=== PATIENT | female | born 1995 | race Caucasian/White ===

== ENCOUNTER 2018-04-13 01:48 | Outpatient (RCR) | payer OTHER, SELFPAY ==
[2018-04-13] VITALS (7 sets, daily range): BP systolic 103–114; BP diastolic 56–65; PULSE 57–67; RESP 17–18; TEMP 36.7–37.3
[2018-04-13] MEDS: Acetaminophen 325 MG TAB PO (08:07)
== END 2018-04-29 ==
LOC: INF 01:48
PROVIDERS: PCP Pediatrics; Visit Provider Pediatrics
DX: H20.9 Unspecified iridocyclitis (principal)
CPT/HCPCS: 96365; 96366; J1745

== ENCOUNTER 2018-06-22 01:44 | Outpatient (RCR) | payer OTHER, SELFPAY ==
[2018-06-22] VITALS (7 sets, daily range): BP systolic 105–118; BP diastolic 57–72; PULSE 61–85; RESP 18; TEMP 36.4–37.4; O2SAT 95–98
[2018-06-22] MEDS: Acetaminophen 325 MG TAB PO (08:09)
[2018-06-22] MEDS: Normal Saline Flush 10 ML SYR IVP (08:10)
[2018-06-22 08:28] LABS: Absolute Basophil Count 0.02 k/cumm (0.0-0.2); Absolute Eosinophil Count 0.12 k/cumm (0.0-0.7); Absolute Lymphocyte Count 2.75 k/cumm (1.2-3.4); Absolute Neutrophil Count 2.03 k/cumm (1.2-6.7); Basophils % 0.4; Eosinophils % 2.3; HCT 37.6 % (36.0-46.0); HGB 12.5 g/dL (12.0-15.5); Lymphocytes % 51.7; Mean Corp. HGB Concentration 33.2 g/dL (32.0-36.0); Mean Corpuscular Hemoglobin 30.8 pg (27.0-33.0); Mean Corpuscular Volume 92.6 fL (80-95); Mean Platelet Volume 9.3 fL (8.0-11.0); Monocytes % 7.5; Neutrophils % 38.1; Platelet Count 328 x1000/uL (130-400); RBC 4.06 m/cumm (4.00-5.20); RBC Distribution Width 12.2 % (11.7-14.6); White Blood Cell Count 5.32 k/cumm (4.4-10.8)
[2018-06-22 08:39] LABS: ALT 19 U/L (12-78); AST 17 U/L (15-37); Albumin 4.2 g/dL (3.4-5.0); Alkaline Phosphatase 59 U/L (46-116); Anion Gap 9.2 mmol/L (3-11); BUN 8 mg/dL (7-18); Bilirubin, Total 0.4 mg/dL (0.2-1.0); CO2 27.8 mmol/L (21.0-32.0); CREATININE 0.72 mg/dL (0.55-1.02); Chloride 102 mmol/L (98-107); Glucose 95 mg/dL (70-100); Potassium 3.7 mmol/L (3.5-5.1); Sodium 139 mmol/L (136-145)
== END 2018-06-29 23:59 | disposition home or self-care (01) ==
LOC: INF 01:44
PROVIDERS: Pediatrics; PCP Pediatrics; Visit Provider Pediatrics
DX: H20.9 Unspecified iridocyclitis (principal)
CPT/HCPCS: 36415; 80053; 96365; 96366; 85025; J1745

== ENCOUNTER 2018-09-16 01:12 | Outpatient (RCR) | payer OTHER, MEDICAID, SELFPAY ==
[2018-09-16] MEDS: Acetaminophen 325 MG TAB PO (10:13)
[2018-09-16 10:16] VITALS: BP 109/67; PULSE 71; RESP 18; TEMP 36.5; O2SAT 95
[2018-09-16 11:04] VITALS: BP 110/57; PULSE 83; TEMP 37.2; O2SAT 98
[2018-09-16 11:20] VITALS: BP 120/59; PULSE 70; RESP 118; TEMP 37; O2SAT 98
[2018-09-16 11:25] LABS: Absolute Basophil Count 0.01 k/cumm (0.0-0.2); Absolute Lymphocyte Count 1.96 k/cumm (1.2-3.4); Absolute Monocyte Count 0.34 k/cumm (0.11-0.7); Absolute Neutrophil Count 2.41 k/cumm (1.2-6.7); Basophils % 0.2; Eosinophils % 2.1; HCT 38.3 % (36.0-46.0); HGB 12.8 g/dL (12.0-15.5); Lymphocytes % 40.7; Mean Corp. HGB Concentration 33.4 g/dL (32.0-36.0); Mean Corpuscular Hemoglobin 30.7 pg (27.0-33.0); Mean Corpuscular Volume 91.8 fL (80-95); Mean Platelet Volume 9.8 fL (8.0-11.0); Monocytes % 7.1; Neutrophils % 49.9; Platelet Count 312 x1000/uL (130-400); RBC 4.17 m/cumm (4.00-5.20); RBC Distribution Width 11.9 % (11.7-14.6); White Blood Cell Count 4.82 k/cumm (4.4-10.8)
[2018-09-16 11:27] LABS: ALT 23 U/L (12-78); AST 22 U/L (15-37); Albumin 4.1 g/dL (3.4-5.0); Alkaline Phosphatase 67 U/L (46-116); Anion Gap 9.5 mmol/L (3-11); BUN 5 mg/dL (7-18); Bilirubin, Total 0.3 mg/dL (0.2-1.0); CO2 27.5 mmol/L (21.0-32.0); CREATININE 0.77 mg/dL (0.55-1.02); Chloride 102 mmol/L (98-107); Glucose 110 mg/dL (70-100); Potassium 3.9 mmol/L (3.5-5.1); Sodium 139 mmol/L (136-145); Total Protein 8.2 g/dL (6.4-8.2)
[2018-09-16 11:34] VITALS: BP 125/60; PULSE 65; RESP 18; TEMP 37; O2SAT 98
[2018-09-16 12:08] VITALS: BP 109/43; PULSE 72; RESP 18; TEMP 37; O2SAT 98
[2018-09-16] MEDS: Normal Saline Flush 10 ML SYR IVP (13:17)
== END 2018-09-29 23:59 | disposition home or self-care (01) ==
LOC: INF 01:12
PROVIDERS: PCP Pediatrics; Visit Provider Family Medicine
DX: H20.00 Unspecified acute and subacute iridocyclitis (principal)
CPT/HCPCS: 36415; 80053; 96365; 96366; 85025; J1745

== ENCOUNTER 2018-12-15 01:20 | Outpatient (RCR) | payer OTHER, SELFPAY ==
[2018-12-15] MEDS: Acetaminophen 325 MG TAB PO (10:07)
[2018-12-15 10:26] VITALS: BP 104/69; PULSE 79; RESP 18; TEMP 36.6; O2SAT 95
[2018-12-15] MEDS: inFLIXimab 300 MG in Normal Saline 250 ML 10 MG IVPB (11:07)
[2018-12-15 11:08] VITALS: BP 107/68; PULSE 68; RESP 18; TEMP 36.5; O2SAT 98
[2018-12-15 11:22] VITALS: BP 114/70; PULSE 74; RESP 18; TEMP 36.6; O2SAT 100
[2018-12-15 11:42] VITALS: BP 99/66; PULSE 64; RESP 18; TEMP 36.3; O2SAT 100
[2018-12-15 12:20] VITALS: BP 95/62; PULSE 76; RESP 18; TEMP 36.5; O2SAT 98
[2018-12-15 13:13] VITALS: BP 97/58; PULSE 70; RESP 18; TEMP 36.5; O2SAT 97
== END 2018-12-27 23:59 | disposition home or self-care (01) ==
LOC: INF 01:20
PROVIDERS: PCP Pediatrics; Visit Provider Family Medicine
DX: H20.00 Unspecified acute and subacute iridocyclitis (principal)
CPT/HCPCS: 96365; 96366; J1745

== ENCOUNTER 2019-09-28 01:37 | Outpatient (RCR) | payer OTHER, SELFPAY ==
[2019-09-21 11:25] VITALS: BP 122/77; PULSE 84; RESP 18; TEMP 36.7; O2SAT 100
[2019-09-21 11:45] LABS: Abs Immature Grans 0.02 k/cumm (0.0-0.09); Absolute Basophil Count 0.02 k/cumm (0.0-0.2); Absolute Eosinophil Count 0.15 k/cumm (0.0-0.7); Absolute Lymphocyte Count 2.41 k/cumm (1.2-3.4); Absolute Monocyte Count 0.56 k/cumm (0.11-0.7); Absolute Neutrophil Count 3.88 k/cumm (1.2-6.7); Basophils % 0.3; Eosinophils % 2.1; HCT 37.7 % (36.0-46.0); HGB 12.2 g/dL (12.0-15.5); Immature Grans % 0.3 %; Lymphocytes % 34.2; Mean Corp. HGB Concentration 32.4 g/dL (32.0-36.0); Mean Corpuscular Hemoglobin 29.5 pg (27.0-33.0); Mean Corpuscular Volume 91.1 fL (80-95); Mean Platelet Volume 9.2 fL (8.0-11.0); Neutrophils % 55.1; Platelet Count 408 x1000/uL (130-400); RBC 4.14 m/cumm (4.00-5.20); RBC Distribution Width 11.9 % (11.7-14.6); White Blood Cell Count 7.04 k/cumm (4.4-10.8)
[2019-09-21 12:00] LABS: ALT 18 U/L (14-59); AST 29 U/L (15-37); Alkaline Phosphatase 60 U/L (46-116); Anion Gap 10.2 mmol/L (3-11); BUN 6 mg/dL (7-18); Bilirubin, Total 0.4 mg/dL (0.2-1.0); CO2 25.8 mmol/L (21.0-32.0); CREATININE 0.62 mg/dL (0.55-1.02); Calcium 8.5 mg/dL (8.5-10.1); Chloride 101 mmol/L (98-107); Glucose 105 mg/dL (74-106); Potassium 4.1 mmol/L (3.5-5.1); Sodium 137 mmol/L (136-145); Total Protein 8.9 g/dL (6.4-8.2)
[2019-09-28] VITALS (7 sets, daily range): BP systolic 98–118; BP diastolic 62–72; PULSE 78–98; RESP 18–99; TEMP 36.9–37.2; O2SAT 98
[2019-09-28] MEDS: inFLIXimab 300 MG in Normal Saline 250 ML 125 MG IVPB (08:40)
[2019-09-28] MEDS: Normal Saline Flush 10 ML SYR IVP (08:41)
== END 2019-09-29 23:59 | disposition home or self-care (01) ==
LOC: INF 01:37
PROVIDERS: PCP Nurse Practitioner; Visit Provider Internal Medicine
DX: H20.9 Unspecified iridocyclitis (principal)
CPT/HCPCS: 36415; 80053; 96365; 96366; 96413; 96415; 85025; J1745

== ENCOUNTER 2020-07-08 16:25 | Outpatient (REF) | payer OTHER, SELFPAY ==
[2020-07-13 16:00] LABS: Patient Race White; SARS-CoV-2 RNA Undetected (Undetected); SARS-CoV-2 Specimen Source Nasal
== END 2020-07-08 16:45 ==
LOC: LBO 16:25
PROVIDERS: PCP Nurse Practitioner; Visit Provider Nurse Practitioner Family
DX: Z11.59 Encounter for screening for other viral diseases (principal)
CPT/HCPCS: U0003

== ENCOUNTER 2020-07-16 08:51 | Outpatient (REF) | payer OTHER, SELFPAY ==
[2020-07-19 19:12] LABS: Patient Race White; SARS-CoV-2 RNA Undetected (Undetected); SARS-CoV-2 Specimen Source Nasal
== END 2020-07-16 09:11 ==
LOC: NCHCN 08:51
PROVIDERS: PCP Nurse Practitioner; Visit Provider Nurse Practitioner Family
DX: Z11.59 Encounter for screening for other viral diseases (principal)
CPT/HCPCS: U0003

== ENCOUNTER 2020-08-26 01:19 | Outpatient (CLI) | payer OTHER, SELFPAY ==
--- NOTE | 2020-08-26 09:45 | DI.RAD_ITS ---
EXAM: XR RIBS LT W PA LAT CHEST CLINICAL HISTORY: RIB PAIN LT, R07.81 TECHNIQUE: 2D digital imaging was performed. COMPARISON: CR CHEST 2 VIEWS PA,LAT from 10/05/2010 FINDINGS: There are no acute rib fractures evident. No lytic rib lesions identified. Density on the posterior aspect of the left 8th rib is probably healed fracture site. There are no pulmonary infiltrates. No pneumothorax. On 1 of the rib images there is blunting of th e costophrenic angle on the left side which may indicate a small left pleural effusion. Heart size is normal and there is no significant mediastinal widening. IMPRESSION: 1. No rib fractures evident. Also no obvious rib lesions. 2. There may be a very small amount of left pleural fluid. There is no pneumothorax. DATA REPOSITORY: RADIATION DOSE DELIVERED:
== END 2020-08-26 01:39 ==
PROVIDERS: PCP Nurse Practitioner; Visit Provider Nurse Practitioner
DX: R07.81 Pleurodynia (principal)
CPT/HCPCS: 71046; 71100

== ENCOUNTER 2021-05-02 09:05 | Outpatient (REF) | payer OTHER, SELFPAY ==
[2021-05-03 14:24] LABS: COVID-19 RT-PCR UVMMC Result Negative (Negative)
== END 2021-05-02 09:06 | disposition home or self-care (01) ==
LOC: NCHCN 09:05
PROVIDERS: PCP Nurse Practitioner; Visit Provider Internal Medicine
DX: Z20.822 Contact with and (suspected) exposure to COVID-19 (principal); R05 Cough
CPT/HCPCS: U0003

== ENCOUNTER 2021-05-10 10:46 | Outpatient (REF) | payer OTHER, SELFPAY | END 2021-05-10 10:47 | disposition home or self-care (01) | LOC: LBN 10:46 | PROVIDERS: PCP Nurse Practitioner; Visit Provider Physician Assistant Medical | DX: R30.9 Painful micturition, unspecified (principal) | CPT/HCPCS: 87086 ==

== ENCOUNTER 2021-05-22 10:03 | Outpatient (REF) | payer OTHER, SELFPAY ==
[2021-05-22 23:32] LABS: COVID-19 RT-PCR UVMMC Result Negative (Negative)
== END 2021-05-22 10:04 | disposition home or self-care (01) ==
LOC: LBN 10:03
PROVIDERS: PCP Nurse Practitioner; Visit Provider Physician Assistant Medical
DX: Z20.822 Contact with and (suspected) exposure to COVID-19 (principal); J06.9 Acute upper respiratory infection, unspecified
CPT/HCPCS: U0003

== ENCOUNTER 2021-08-15 20:49 | Outpatient (REF) | payer OTHER, SELFPAY ==
[2021-08-17 11:23] LABS: COVID-19 RT-PCR UVMMC Result Negative (Negative)
== END 2021-08-15 20:50 | disposition home or self-care (01) ==
LOC: NCHCN 20:49
PROVIDERS: PCP Nurse Practitioner; Visit Provider Internal Medicine
DX: Z11.52 Encounter for screening for COVID-19 (principal)
CPT/HCPCS: U0003

== ENCOUNTER 2021-08-25 18:05 | Outpatient (REF) | payer OTHER, SELFPAY ==
[2021-08-27 15:06] LABS: COVID-19 RT-PCR UVMMC Result Negative (Negative)
== END 2021-08-25 18:06 | disposition home or self-care (01) ==
LOC: NCHCN 18:05
PROVIDERS: PCP Nurse Practitioner; Visit Provider Nurse Practitioner Family
DX: Z20.822 Contact with and (suspected) exposure to COVID-19 (principal)
CPT/HCPCS: U0003

== ENCOUNTER 2021-12-22 13:23 | Outpatient (REF) | payer OTHER, SELFPAY | END 2021-12-22 13:24 | disposition home or self-care (01) | LOC: NCHCN 13:23 | PROVIDERS: PCP Nurse Practitioner; Visit Provider Nurse Practitioner Family | DX: N39.0 Urinary tract infection, site not specified (principal) | CPT/HCPCS: 87077; 87086; 87186 ==

== ENCOUNTER → 2022-06-04 01:26 | Outpatient (CLI) | payer OTHER, SELFPAY ==
--- NOTE | 2022-06-04 | DI.CT_ITS ---
Exam(s) CT ABDOMEN PELVIS W EXAM: CT ABDOMEN PELVIS W INDICATION: LACERATION LEFT KIDNEY [id number]. COMPARISON: No exams were available for comparison TECHNIQUE: FINDINGS: CT examination of the abdomen and pelvis was performed with intravenous infusion of 100 cc of Omnipaq ue 350. Images obtained through the lung bases are unremarkable. The liver is unremarkable in appearance. Gallbladder and bile ducts are CT normal. Pancreas appears normal. Spleen is unremarkable in appearance. Adrenals appear normal. The kidneys are unremarkable with no evidence of hydronephrosis, nephrolithiasis, or renal mass. The patient reportedly had prior laceration of left, however no evidence this is present current examina tion.. Urinary bladder unremarkable. Abdominal aorta is of normal diameter and no major vascular abnormality is seen. No abdominal wall hernia. No abdominal or pelvic adenopathy. [employer] PROFESSOR structures appear intact, there is a small to moderate quantity of free fluid in the pelvis which is nonspecific and which could represent recently ruptured ovarian cyst.. Appendix is not specifically visualized.. No evidence of diverticulitis or bowel obstruction. IMPRESSION: There is free fluid in the pelvis which is nonspecific. Patient reportedly had a prior left renal la ceration, no evidence of renal abnormality at this time. Please note that the appendix was not specifically visualized, if there is a high clinical suspicion of appendicitis additional evaluation with oral and IV contrast enhanced study could be. RADIATION DOSE DELIVERED: 657.65mGy.cm Total DLP 657.65mGy.cm Total DLP !Error CTDIvol RADIATION OPTIMIZATION: All CT scans at this facility use at least one of these dose optimization te chniques: automated exposure control; mA and/or kV adjustment per patient size (includes targeted exa ms where dose is matched to clinical indication); or iterative reconstruction.
[2022-06-04] MEDS: Omnipaque 350 MG/ML 500 ML BTL-Imaging package IJ (13:25)
== END ==
PROVIDERS: PCP Nurse Practitioner; Visit Provider Family Medicine
DX: S37.062D Major laceration of left kidney, subsequent encounter (principal); X58.XXXD Exposure to other specified factors, subsequent encounter
CPT/HCPCS: 74177

== ENCOUNTER 2024-08-21 13:46 | Outpatient (REF) | payer BC, SELFPAY ==
--- OUTSIDE RECORDS SUMMARY | 2024-08-21 14:07 | XMS_ITS | Encounter Summary ---
Author Organization [facility] Address [address] [place] [address] Care Team Providers Care Community Center Director Name Role Phone Sofy Nicolas MD Primary Care Provider [phone] [phone] Encounter Details Date Type Department Care Team (Late st Contact Info) Description 08/15/2021 Lab Requisition [facility] Pathology & Laboratory Medicine - [facility] [address] [place], [place] [address] [phone] Outr Resulting Lab, Provider Social History Tobacco Use Types Packs/Day Years Used Date Smoking Tobacco: Never Smokeless Tobacco: Never Alcohol Use Standard Drinks/Week Comments No 0 (1 standard drink = 0.6 oz pur e alcohol) Interpersonal Safety Answer Date Record ed Physically Hurt Never 03/31/2020 Verbally Threaten Not on file 03/31/2020 Comments No Sex and Gender Information Value Date Recorded Sex Assigned at Not on file Legal Sex Female 18:19 EST Gender Identity Not on file Sexual Orientation Not on file documented as of this encounter Functional Status * Because of a physical, mental, or emotional condition, does this person have difficulty doing errands alone such as visiting a doctor's office or shopping? Answer Date of Assessment Author No 07/07/2017 12:16 EST documented as of this encounter Mental Status * Because of a physical, mental, or emotional condition, does this person have serious difficulty concentrating, remembering, or making decisions? Answer Entry Date Author No 07/07/2017 12:16 EST documented in this encounter Plan of Treatment Not on file documented as of this encounter Procedures Procedure Name Priority Date/Time Associated Diagnosis Comments ZZCOVID-19 TEST [facility] PCR Today 08/15/2021 16:40 EST COVID-19 TESTING Routine 08/15/2021 16:4 0 EST documented in this encounter Results * COVID-19 TEST [facility] PCR (08/15/2021 16:40 EST) Swab 08/15/2021 16:4 0 EST 08/17/2021 2:00 EST us Provider Outr Resulting Lab MICROBIOLOGY - GENER AL ORDERABLES Final Result [facility] [address] [place] [id number] * COVID-19 TESTING (08/15/2021 16:40 EST) COVID-19 rt-PCR Result Negative Negative 08/17/2021 11:18 EST [facility] Comment: This test has not been FDA cleared or approved. This test has been authorized by FDA under an EUA for use by authorized laboratories. This test has been authorized only for detection of nucleic acid from 2019-nCoV, not for any other viruses or pathogens. This test is only authorized for the duration of the declaration that circumstances exist justifying the authorization of emergency use of in vitro diagnostic tests for detection and/or diagnosis of 2019-nCoV under section 564(b)(1) of Act, 21 U.S.C ?? 360bbb-3(b) (1), unless the authorization is terminated or revoked sooner. Negative results do not preclude 2019-nCoV infection and should not be used as the sole basis for treatment or other patient management decisions. Negative results must be combined with clinical observations, patient history, and epidemiological information. Performed on the [employer] Fusion instrument Performing Lab [place] [facility] 08/17/2021 11:18 EST [facility] Swab 08/15/2021 16:4 0 EST 08/17/2021 2:00 EST us Provider Outr Resulting Lab MICROBIOLOGY - GENER AL ORDERABLES Final Result [facility] [address] [place] [address] documented in this encounter Visit Diagnoses Not on filedocumented in this encounter Care Teams Community Center Director Relationship Specialty Start Date End Date Sofy Nicolas MD 1 [facility] [address] [place] [address] PCP - General 06/27/15 documented as of this encounter
--- OUTSIDE RECORDS SUMMARY | 2024-08-21 14:07 | XMS_ITS | Encounter Summary ---
Author Organization [facility] Address [address] [place] [address] Care Team Providers Care Solar Installation Technician Name Role Phone Sofy Nicolas MD Primary Care Provider [phone] Encounter Details Date Type Department Care Team (Late st Contact Info) Description 05/22/2021 Lab Requisition [facility] Pathology & Laboratory Medicine - [facility] [address] [place], [place] [address] [phone] Outr Resulting Lab, Provider Social History Tobacco [...] Priority Date/Time Associated Diagnosis Comments ZZCOVID-19 TEST [facility] PCR Today 05/22/2021 9:50 EDT COVID-19 TESTING Routine 05/22/2021 9:50 EDT documented in this encounter Results * COVID-19 TEST [facility] PCR (05/22/2021 9:50 EDT) Swab ENTIRE NASOPHARYNX / Unknown 05/22/2021 9:50 EDT 05/22/2021 20:33 EDT us Provider Outr Resulting Lab MICROBIOLOGY - GENER AL ORDERABLES Final Result [facility] [address] [place] [id number] * COVID-19 TESTING (05/22/2021 9:50 EDT) COVID-19 rt-PCR Result Negative Negative 05/22/2021 23:27 EDT [facility] Comment: This test has not [...] history, and epidemiological information. Performed on the [employer] Fusion instrument Performing Lab [place] [facility] 05/22/2021 23:27 EDT [facility] Swab 05/22/2021 9:50 EDT 05/22/2021 20:33 EDT us Provider Outr Resulting Lab MICROBIOLOGY - GENER AL ORDERABLES Final Result [facility] [address] [place] [address] documented in this encounter Visit Diagnoses Not on filedocumented in this encounter Care Teams Solar Installation Technician Relationship Specialty Start Date End Date Sofy Nicolas MD 1 [facility] [address] [place] [address] PCP - General 06/27/15 documented as of this encounter
--- OUTSIDE RECORDS SUMMARY | 2024-08-21 14:07 | XMS_ITS | Clinical Summary ---
Author Organization [facility] Address [address] [place] [address] Care Team Providers Care Hospitalist Program Director Name Role Phone Sofy Nicolas MD Primary Care Provider [phone] [phone] Allergies Active Allergy Reactions Criticality Noted Date Comments Ciprofloxacin Hives 07/04/2014 Clindamycin 01/23/2012 Penicillins 01/23/2012 Medications inFLIXimab (REMICADE) 100 mg injection Inject 300 mg into the vein every 8 weeks Active chlorhexidine (HIBICLENS) 4 % liquid Apply topically daily 960 mL 11 5 Active medroxyPROGESTE Simba (DEPO-PROVERA) 150 mg/mL injection Inject 1 mL into the muscle every 12 weeks. 1 mL 7 Active timolol (TIMOPTIC-XE) 0.25 % ophthalmic gel-forming Place 1 Drop into the left eye daily. Active Active Problems Problem Noted Date Diagnosed Date Slow transit constipation 06/27/2015 Overview (06/27/2015): Intermittent since high school Staph skin infection 06/05/2015 Overview (09/12/2015): Fall 2014, seen by Derm, treated, resolved. Depressed mood 11/30/2014 Chronic back pain 11/30/2014 Overview (09/12/2015): November 2014, undergoing re-eval by Dr. Alejandra in [facility] Surveillance for Depo-Provera contraception 09/30 Overview (09/12/2015): Depo Provera, last injection 09/12/15. Considering change to another method that would allow for more regular periods. High risk medication use 07/04/2014 Overview (09/12/2015): Remicade infusions for idiopathic uveitis Uveitis 04/13/2014 Overview (10/03/2015): Idiopathic Uveitis. On Remicade every 8 weeks, started in 2007. Sees Dr. Pond at [facility]. Has seen Brea Juarez in [facility] and Brea Grace in [place]. HLA B27 neg? Resolved Problems Problem Noted Date Diagnosed Date Resolved Date Furuncle of buttock 06/05/2015 09/12/19 16 Bacterial vaginosis 10/12/2014 12/01/19 15 Immunizations Name Administration Dates Next Due DTaP Vaccine (INFANRIX) <7YO IM 12/17/19,06/04/1997,1996,06/26,1996 HPV Quadrivalent Recombinant Vaccine 05/13/2009, 07/17/2008,04/23/2008 Hepatitis A 11/03/2012 Hepatitis B 1996,1996,1996 Hib 06/04/1997, 7,1996,04/28 Influenza (whole) 11/03/2012, 0,06/03/2009,07/17,07/04/2007,08/20/2006 MMR Vaccine SQ 12/16/2000,06/04/1997 Meningococcal Conjugate (MCV 4) Vaccine (MENACTRA) 4-Valent IM 12/20/2013,04/23/2008 Poliovirus Vaccine IPV IM OR SQ 12/17/19 01,1996,1996,04/28 Tdap Vaccine =>7YO IM 04/23/2008 Varicella (Chickenpox) vacci ne (VARIVAX) SQ 06/04/1997 Surgical History Surgery Date Site/Laterality Comments CATARACT REMOVAL WITH IMPLANT 08/30/2011 - 08/29/2012 Le ft GLAUCOMA SURGERY Left TONSILLECTOMY CAPSULOTOMY Left INTRAOCULAR LENS PROSTHESIS INSERTION Lef t CATARACT REMOVAL Left EYE SURGERY Medical History Medical History Date Comments Psoriasis started on remicade Varicella Joint pain Vision abnormalities Hearing difficulty Cataract removal - left e ye Glaucoma s/p goniotomies x 2 left eye Family History Medical History Relation Comments Ankylosing spondylitis Neg Hx Arthritis-Rheumatoid Neg Hx Crohn's Disease Neg Hx Inflammatory Bowel Disease Neg Hx Psoriasis Neg Hx Psoriatic arthritis Neg Hx Rheumatologic Disease Neg Hx SLE Neg Hx Scleroderma Neg Hx Ulcerative Colitis Neg Hx Relation Status Comments Brother 1 Alive Brother 2 Alive Father Alive Maternal Grandfather Alive Maternal Grandmother Alive Mother Alive Paternal Grandfather Alive Paternal Grandmother Alive Sister Alive Social History Tobacco Use Types Packs/Day Years Used Date Smoking Tobacco: Never Smokeless Tobacco: Never Tobacco Cessation:Counseling Given: Yes Alcohol Use Standard Drinks/Week Comments No 0 (1 standard drink = 0.6 oz pur e alcohol) Interpersonal Safety Answer Date Record ed Physically Hurt Never 03/31/2020 Verbally Threaten Not on file 03/31/2020 Comments No Sex and Gender Information Value Date Recorded Sex Assigned at Not on file Legal Sex Female 18:19 EST Gender Identity Not on file Sexual Orientation Not on file Obstetrics History Last Filed Vital Signs Vital Sign Reading Time Taken Comments Blood Pressure 102/64 01/09/2019 1423 EDT Pulse 62 01/09/2019 1423 EDT Temperature 37.2 ??C (99 ??F) 11/26/2017 1600 EDT Respiratory Rate 16 11/26/2017 1525 EDT Oxygen Saturation 98% 06/25/2014 1517 EDT Inhaled Oxygen Concentration - - Weight 60.8 kg (134 lb) 01/09/2019 1423 EDT Height 168.3 cm (5' 6.25) 11/26/2017 1317 EDT Body Mass Index 21.47 11/26/2017 1317 EDT Plan of Treatment Health Maintenance Due Date Last Done Comments Social Determinants Of Healt h (SDOH) 1996 HIV Screening 2012 Advance Directive 02/25/2014 Cervical Cancer Screening 02/25/2017 Pap Smear (Cervical Cancer Screening) 02/25/2017 Depression Screening 03/16/2018 03/16/2017, 10/11/19 15 Tetanus (Adult) Immunization 04/23/2018 04/23/2008 Preventive Care Visit 03/16/2019 03/16/2017 COVID-19 Vaccine (2023-2 5 season) 2024 Influenza Immunization (Adul t) (#1) 2024 11/03/2012, 08/06/2010, 06/03/2009, Additional history exists Hepatitis B Vaccine Completed 1996, 1996, 1996 Pertussis (Adult) Immunization Completed 04/23/2008 HPV Vaccines Completed 05/13/2009, 06/30, 04/23/2008 Chlamydia Screening Discontinued 10/11/2014, 10/11/2014, 09/25/2014 Hepatitis C Screen Completed 11/28/2014 Procedures Procedure Name Priority Date/Time Associated Diagnosis Comments HEPATITIS C AB W REFLEX TO HCV RNA BY PCR Routine 11/28/2014 7:45 EDT CHLAMYDIA/N. GONORRHOEAE AMPLIFIED RNA, URINE Routine 10/11/2014 16:08 EST Sexually active from Last 3 Months or Most Recently Relevant to Health Maintenance Results * HEPATITIS C ANTIBODY (11/28/2014 7:45 EDT) Hepatitis C Ab Negative 11/28/2014 13:16 EDT [facility] Comment:Reference Range: Neg ative BLOOD SPECIMEN / Unknown 11/28/2014 7:45 EDT 11/28/2014 8:34 EDT us Nuvia Patrick MD CHEMISTRY & BLOOD GAS ORDER GEORGINA Final Result [facility] [address] [place] [address] * CHLAMYDIA/GC AMPLIFIED, URINE (10/11/2014 16:08 EST) Specimen Description Urine 10/11/2014 21:07 EST [facility] Chlamydia Result No Chlamydia trachomatis DNA detected by hand hose cutter mediated amplification. 10/12/2014 14:02 EST [facility] Comment: A first catch urine specimen is acceptable for detection of Gonorrhea and Chlamydia, but might detect up to 10% fewer infections when compared with vaginal and endocervical swab samples. GC Result No Neisseria gonorrhoeae DNA detected by hand hose cutter mediated amplification. 10/12/2014 14:02 EST [facility] Comment: A first catch urine specimen is acceptable for detection of Gonorrhea and Chlamydia, but might detect up to 10% fewer infections when compared with vaginal and endocervical swab samples. Specimen of unknown material (specimen) URINE / Unknown 10/11/2014 16:08 EST 10/11/2014 21:07 EST us Sofy Nicolas MD MICROBIOLOGY - GENERAL OR DERABLES Final Result [facility] [address] [place] [address] from Last 3 Months or Most Recently Relevant to Health Maintenance Insurance [facility] Care Teams Hospitalist Program Director Relationship Specialty Start Date End Date Sofy Nicolas MD 1 [facility] [address] [place] [address] PCP - General 06/27/15
--- OUTSIDE RECORDS SUMMARY | 2024-08-21 14:07 | XMS_ITS | Referral Summary ---
Author Organization [facility] Address [address] [place] [address] Care Team Providers Care Credit Assessment Analyst Name Role Phone Sofy Nicolas MD Primary Care Provider +1 [phone] Allergies Active Allergy Reactions Criticality Noted Date [...] 2014, undergoing re-eval by [facility] Alejandra in [facility] Surveillance for Depo-Provera contraception 09/30 Overview (09/12/2015): Depo Provera, last injection 09/12/15. Considering change to another method that would allow for more regular periods. High risk medication use 07/04/2014 Overview (09/12/2015): Remicade infusions for idiopathic uveitis Uveitis 04/13/2014 Overview (10/03/2015): Idiopathic Uveitis. On Remicade every 8 weeks, started in 2007. Sees Dr[facility] Pond at [facility]. Has seen Brea Juarez in [facility] and Brea Grace in [place]. HLA B27 neg? Resolved Problems Problem Noted [...] Varicella (Chickenpox) vacci ne (VARIVAX) SQ 06/04/1997 Social History Tobacco Use Types Packs/Day Years [...] on file Sexual Orientation Not on file Last Filed Vital Signs Vital Sign Reading [...] Body Mass Index 21.47 11/26/2017 1317 EDT Functional Status * Because of a physical, mental, or emotional condition, does this person have difficulty doing errands alone such as visiting a doctor's office or shopping? Answer Date of Assessment Author No 07/07/2017 12:16 EST Mental Status * Because of a physical, mental, or emotional condition, does this person have serious difficulty concentrating, remembering, or making decisions? Answer Entry Date Author No 07/07/2017 12:16 EST Plan of Treatment Not on file Procedures Procedure Name Priority Date/Time Associated Diagnosis Comments HEPATITIS C AB W REFLEX TO HCV RNA BY PCR Routine 11/28/2014 7:45 EDT CHLAMYDIA/N. GONORRHOEAE AMPLIFIED RNA, URINE Routine 10/11/2014 16:08 EST Sexually active from Last 3 Months or Most Recently Relevant to Health Maintenance Results * HEPATITIS C ANTIBODY (11/28/2014 7:45 EDT) Hepatitis C Ab Negative 11/28/2014 13:16 EDT [facility] Comment:Reference Range: Neg ative BLOOD SPECIMEN / Unknown 11/28/2014 7:45 EDT 11/28/2014 8:34 EDT us Nuvia Patrick MD CHEMISTRY & BLOOD GAS ORDER GEORGINA Final Result [facility] [address] [place] [address] * CHLAMYDIA/GC AMPLIFIED, URINE (10/11/2014 16:08 EST) Specimen Description Urine 10/11/2014 21:07 EST [facility] Chlamydia Result No Chlamydia trachomatis DNA detected by occupational therapy department chair mediated amplification. 10/12/2014 14:02 EST [facility] Comment: A first catch urine specimen is acceptable for detection of Gonorrhea and Chlamydia, but might detect up to 10% fewer infections when compared with vaginal and endocervical swab samples. GC Result No Neisseria gonorrhoeae DNA detected by occupational therapy department chair mediated amplification. 10/12/2014 14:02 EST [facility] Comment: A first catch urine specimen is acceptable for detection of Gonorrhea and Chlamydia, but might detect up to 10% fewer infections when compared with vaginal and endocervical swab samples. Specimen of unknown material (specimen) URINE / Unknown 10/11/2014 16:08 EST 10/11/2014 21:07 EST us Sofy Nicolas MD MICROBIOLOGY - GENERAL OR DERABLES Final Result [facility] [address] [place] [phone] from Last 3 Months or Most Recently Relevant to Health Maintenance Insurance [facility] Care Teams Credit Assessment Analyst Relationship Specialty Start Date End Date Sofy Nicolas MD [address] [place] [address] [address] [place] [address] PCP - General 06/27/15
--- OUTSIDE RECORDS SUMMARY | 2024-08-21 14:07 | XMS_ITS | Encounter Summary ---
Author Organization [facility] Address [address] [place] [address] Care Team Providers Care Junior Accountant Name Role Phone Sofy Nicolas MD Primary Care Provider [phone] Encounter Details Date Type Department Care Team (Late st Contact Info) Description 05/02/2021 Lab Requisition [facility] Pathology & Laboratory Medicine - [facility] [address] [place], [place] [address] [phone] Outr Resulting Lab, Provider Social History Tobacco [...] Priority Date/Time Associated Diagnosis Comments ZZCOVID-19 TEST [facility] PCR Today 05/02/2021 8:30 EDT COVID-19 TESTING Routine 05/02/2021 8:30 EDT documented in this encounter Results * COVID-19 TEST [facility] PCR (05/02/2021 8:30 EDT) Swab ENTIRE NASOPHARYNX / Unknown 05/02/2021 8:30 EDT 05/02/2021 21:09 EDT us Provider Outr Resulting Lab MICROBIOLOGY - GENER AL ORDERABLES Final Result [facility] [address] [place] [phone] * COVID-19 TESTING (05/02/2021 8:30 EDT) COVID-19 rt-PCR Result Negative Negative 05/03/2021 14:19 EDT [facility] Comment: This test has [...] history, and epidemiological information. Performed on the [employer] Fusion instrument Performing Lab [place] [facility] 05/03/2021 14:19 EDT [facility] Swab 05/02/2021 8:30 EDT 05/02/2021 21:09 EDT us Provider Outr Resulting Lab MICROBIOLOGY - GENER AL ORDERABLES Final Result [facility] [address] [place] [address] documented in this encounter Visit Diagnoses Not on filedocumented in this encounter Care Teams Junior Accountant Relationship Specialty Start Date End Date Sofy Nicolas MD 1 [facility] [address] [place] [address] PCP - General 06/27/15 documented as of this encounter
--- OUTSIDE RECORDS SUMMARY | 2024-08-21 14:07 | XMS_ITS | Encounter Summary ---
Author Organization [facility] Address [address] [place] [address] Care Team Providers Care Sanitary Inspector Name Role Phone Sofy Nicolas MD Primary Care Provider [phone] [phone] Encounter Details Date Type Department Care Team ([facility] st Contact Info) Description 01/13/2020 Lab Requisition [facility] Pathology & Laboratory Medicine - [facility] [address] [place] [address] Outr Resulting Lab, Provider Social History Tobacco Use Types Packs/Day Years Used Date Smoking Tobacco: Never Smokeless Tobacco: Never Alcohol Use Standard Drinks/Week Comments No 0 (1 standard drink = 0.6 oz pur e alcohol) Comments No Sex and Gender Information Value [...] Procedure Name Priority Date/Time Associated Diagnosis Comments QUANTIFERON TB GOLD PLUS Routine 01/12/2020 13:40 EDT documented in this encounter Results * QUANTIFERON TB GOLD PLUS (01/12/2020 13:40 EDT) Quantiferon Interpretation Negative Negative 01/17/2020 12:32 EDT [facility] Comment: No interferon-gamma response to M. tuberculosis antigens was detected. ??Infection with M. tuberculosis is unlikely. A single negative result does not exclude infection with M. tuberculosis. ??In patients at high risk for M. tuberculosis infection, a second test should be considered in accordance with the 2017 ATS/IDSA/CDC Clinical Practice Guidelines for Diagnosis of Tuberculosis in Adults and Children. [Loreto VÁSQUEZ et. al. Clin. Infect. Dis. 2017:64 (2) ??: 111-115]. Results were obtained with the Qiagen QuantiFERON TB Gold Plus TYRON. TB1 Ag minus Nil 0.00 IU/ml 01/17/20 20 12:32 EDT [facility] TB2 Ag minus Nil 0.00 IU/mL 01/17/20 20 12:32 EDT [facility] Blood VENOUS BLOOD / Unknown 01/12/2020 13:40 EDT 01/14/2020 16:41 EDT Narrative [facility] - 01/17/2020 12:32 EDT Results were obtained with the Qiagen QuantiFERON-TB Gold Plus TYRON. us Provider Outr Resulting Lab CHEMISTRY & BLOOD GA S ORDERABLES Final Result [facility] [address] [place] [address] documented in this encounter Visit Diagnoses Not on filedocumented in this encounter Care Teams Sanitary Inspector Relationship Specialty Start Date End Date Sofy Nicolas MD 1 [facility] [address] [place] [address] PCP - General 06/27/15 documented as of this encounter
--- OUTSIDE RECORDS SUMMARY | 2024-08-21 14:07 | XMS_ITS | Encounter Summary ---
Author Organization [facility] Address [address] [place] [address] Care Team Providers Care Waxer Floor Name Role Phone Sofy Nicolas MD Primary Care Provider [phone] [phone] Encounter Details Date Type Department Care Team ([facility] st Contact Info) Description 01/08/2020 Lab Requisition [facility] Pathology & Laboratory Medicine - [facility] [address] [place] [address] Outr Resulting Lab, Provider Social History Tobacco [...] Procedure Name Priority Date/Time Associated Diagnosis Comments HOLD SST Today 01/08/2020 11:47 EDT HEPATITIS B SURFACE ANTIBODY Today 01/08/2020 11:47 EDT VARICELLA IGG ANTIBODY Today 01/08/2020 11:47 EDT documented in this encounter Results * HOLD SST (01/08/2020 11:47 EDT) Hold Hold 01/08/2020 16:31 EDT [facility] Blood VENOUS BLOOD / Unknown 01/08/2020 11:47 EDT 01/08/2020 15:30 EDT us Provider Outr Resulting Lab LAB INFO SERVICE AND SUPPORT & PHONE RESULT Final Result Performing Organization Address [facility] Co de Phone Number [facility] [address] [place] [address] * HEPATITIS B SURFACE ANTIBODY (01/08/2020 11:47 EDT) Hep B Surface Ab, Quantitative <3.1 See Note mIU/mL 01/09/2020 12:15 EDT [facility] Comment: Reference Range for Hep B Surface Ab, Quant: Positive: >= 10.0 mIU/mL Negative: ??< 10.0 mIU/mL Patient is presumed to not be immune to infection with Hepatitis B Virus. Hep B Surface Ab, Qualitative Negative See Note 01/09/2020 12:15 EDT [facility] Comment: Reference Range for Hep B Surface Ab, Qual: Unvaccinated: ??Negative Vaccinated: ??Positive Blood VENOUS BLOOD / Unknown 01/08/2020 11:47 EDT 01/08/2020 15:29 EDT us Provider Outr Resulting Lab CHEMISTRY & BLOOD GA S ORDERABLES Final Result Performing Organization Address [facility]/ZIP Co de Phone Number [facility] [address] [place] [address] * VARICELLA IGG ANTIBODY (01/08/2020 11:47 EDT) Varicella IgG Ab Negative See Note 01/09/2020 11:10 EDT [facility] Comment:Absence of detectabl e Varicella Zoster virus IgG antibodies. A negative result generally indicates no detectable antibody, but does not rule out acute infection. If VZV exposure is suspected, a second sample should be collected and tested no less than one or two weeks later. Blood VENOUS BLOOD / Unknown 01/08/2020 11:47 EDT 01/08/2020 15:29 EDT us Provider Outr Resulting Lab IMMUNOLOGY AND SEROL OGY ORDERABLES Final Result [facility] [address] [place] [address] documented in this encounter Visit Diagnoses Not on filedocumented in this encounter Care Teams Waxer Floor Relationship Specialty Start Date End Date Sofy Nicolas MD 1 [facility] [address] [place] [address] PCP - General 06/27/15 documented as of this encounter
--- OUTSIDE RECORDS SUMMARY | 2024-08-21 14:07 | XMS_ITS | Encounter Summary ---
Author Organization [facility] Address [address] [place] [address] Care Team Providers Care Product Design Manager Name Role Phone Sofy Nicolas MD Primary Care Provider [phone] [phone] Encounter Details Date Type Department Care Team (Late st Contact Info) Description 01/09/2020 Lab Requisition [facility] Pathology & Laboratory Medicine - [facility] [address] [place] [address] Outr Resulting Lab, Provider Social History Tobacco [...] on file documented as of this encounter Visit Diagnoses Not on filedocumented in this encounter Care Teams Product Design Manager Relationship Specialty Start Date End Date Sofy Nicolas MD 1 [facility] Level [address] [place] [phone] PCP - General 06/27/15 documented as of this encounter
--- OUTSIDE RECORDS SUMMARY | 2024-08-21 14:07 | XMS_ITS | Encounter Summary ---
Author Organization [facility] Address [address] [place] [address] Care Team Providers Care Demand Inspector Name Role Phone Sofy Nicolas MD Primary Care Provider [phone] [phone] Encounter Details Date Type Department Care Team (Late st Contact Info) Description 08/26/2021 Lab Requisition [facility] Pathology & Laboratory Medicine - [facility] [address] [place], [place] [phone] Outr Resulting Lab, Provider Social History Tobacco [...] Priority Date/Time Associated Diagnosis Comments ZZCOVID-19 TEST [facility] PCR Today 08/25/2021 16:30 EST COVID-19 TESTING Routine 08/25/2021 16:3 0 EST documented in this encounter Results * COVID-19 TEST [facility] PCR (08/25/2021 16:30 EST) Swab 08/25/2021 16:3 0 EST 08/26/2021 17:12 EST us Provider Outr Resulting Lab MICROBIOLOGY - GENER AL ORDERABLES Final Result [facility] [address] [place] [address] * COVID-19 TESTING (08/25/2021 16:30 EST) COVID-19 rt-PCR Result Negative Negative 08/27/2021 15:00 EST [facility] Comment: This test has [...] clinical observations, patient history, and epidemiological information. This test was developed and its performance characteristics determined by [facility]. It has not been cleared or approved by the US Food and Drug Administration. FDA does not require this test to go through premarket FDA review. This test is used for clinical purposes. It should not be regarded as investigational or for research. This laboratory is certified under the Clinical Laboratory Improvement Amendments (CLIA) as qualified to perform high complexity clinical laboratory testing. This test is based on the CDC COVID-19 Emergency Use Authorization (EUA) assay, with minor modification as defined by the FDA Performed on the [employer] L[employer] 7 Flex RT-PCR System. Performing Lab [facility] 08/27/2021 15:00 EST [facility] Swab 08/25/2021 16:3 0 EST 08/26/2021 17:12 EST us Provider Outr Resulting Lab MICROBIOLOGY - GENER AL ORDERABLES Final Result [facility] [address] [place] [address] documented in this encounter Visit Diagnoses Not on filedocumented in this encounter Care Teams Demand Inspector Relationship Specialty Start Date End Date Sofy Nicolas MD 1 [facility] [place] [facility] [address] [place] [phone] PCP - General 06/27/15 documented as of this encounter
--- OUTSIDE RECORDS SUMMARY | 2024-08-21 14:08 | XMS_ITS | Encounter Summary ---
Author Organization [facility] Address [address] [place] [address] Care Team Providers Care Fur Nailer Name Role Phone Sofy Nicolas MD Primary Care Provider [phone] Reason for Visit * Reason Onset Date Comments Medication Problem 09/21/2019 Encounter Details Date Type Department Care Team ([facility] st Contact Info) Description 09/21/2019 Telephone [facility] Rheumatology & Immunology - [address] [address] Crystal Mai RN Medication Problem Social History Tobacco Use Types Packs/Day Years [...] 07/07/2017 12:16 EST documented in this encounter Miscellaneous Notes * Telephone Encounter - Crystal Mai RN - 09/21/2019 3507 EST Pt called, stated is at [facility] in [facility] for infusion. Stated Renflexis was to be started but pt refused stating that ophthalmology ([facility]) was adamant that she receives brand name Remicade only for uveitis. She received Remicade in [place] since January 2019. Per last PA (ordered 01/30/19), insurance denied Remicade and approved Inflectra or Renflexis (biosimilars for infliximab). Therapy plan was faxed to [facility] for Renflexis as this medication was ontheir formulary. Pt unsure what to do. Stated has approval letter from insurance about Remicade. Has faxed letter here for pre-cert to resubmit for extended approval as this 08/29/19. documented in this encounter Plan of Treatment Not on file documented as of this encounter Visit Diagnoses Not on filedocumented in this encounter Care Teams Fur Nailer Relationship Specialty Start Date End Date oSfy Nicolas MD 1 [facility] Level [address] [place] [address] PCP - General 06/27/15 documented as of this encounter
--- OUTSIDE RECORDS SUMMARY | 2024-08-21 14:08 | XMS_ITS | Encounter Summary ---
Author Organization [facility] Address [address] [place] [address] Care Team Providers Care Workers Compensation Legal Secretary Name Role Phone Sofy Nicolas MD Primary Care Provider [phone] [phone] Reason for Visit * Reason Onset Date Comments Other 02/01/2018 Encounter Details Date Type Department Care Team (Late st Contact Info) Description 02/01/2018 Telephone [email or web address] Pediatric Primary Care [address] [phone] Sofy Nicolas MD [address] [address] Other Social History Tobacco Use Types Packs/Day Years [...] encounter Miscellaneous Notes * Telephone Encounter - Ama Dietz RN - 02/01/2018 1143 EDT Spoke with [place] she needs information on her Last Depo Provera sent to that off ice as soon as possible. She doesn't want to miss her contraception . She is due 02/02-02/16. I copied that information into a letter and faxed it to [facility] at [phone] If a discussion is needed with [facility] their phone number is [phone]. * Telephone Encounter - Katrina Mayer - 02/01/2018 8641 EDT Reason for Call: depo Summary/Symptoms: No longer in the [facility] -needs info on Depo Onset and Duration? na Appointment Offered? N/A Katrina Mayer 02/01/2018 11:35 documented in this encounter Plan of Treatment Not on file documented as of this encounter Visit Diagnoses Not on filedocumented in this encounter Care Teams Workers Compensation Legal Secretary Relationship Specialty Start Date End Date Sofy Nicolas MD 1 [facility] [address] [place] [address] PCP - General 06/27/15 documented as of this encounter
--- OUTSIDE RECORDS SUMMARY | 2024-08-21 14:08 | XMS_ITS | Encounter Summary ---
Author Organization [facility] Address [address] [place] [address] Care Team Providers Care Physician Non Invasive Cardiologist Name Role Phone Sofy Nicolas MD Primary Care Provider [phone] [phone] Encounter Details Date Type Department Care Team (Latest Contact Info) Description 09/09/2017 12:07 EST - 09/09/2017 23:59 EST Hospital Encounter [address] [address] Unknown, Provider, MD Discharge Disposition: Home or Self Care Social History Tobacco Use Types Packs/Day Years [...] 07/07/2017 12:16 EST documented in this encounter Medications at Time of Discharge chlorhexidine (HIBICLENS) 4 % liquid Apply topically daily 960 mL 11 06/18/2015 inFLIXimab (REMICADE) 100 mg injection Inject 300 mg into the vein every 8 weeks medroxyPROGESTER one (DEPO-PROVERA) 150 mg/mL injection Inject 1 mL into the muscle every 12 weeks. 1 mL 12/28/2016 doxycycline (VIBRA-TABS) 100 mg tablet Take 1 Tab by mouth 2 times daily. May cause upset stomach or photosensitivit y. 60 Tab 3 07/02/2017 8 mupirocin (BACTROBAN) 2 % ointment Apply topically daily. 8 TACROLIMUS (PROTOPIC TOP) Apply topically as needed. 8 documented as of this encounter Discharge Disposition Disposition Code Departure Means Destination Home or Self [facility] documented in this encounter Plan of Treatment Not on file documented as of this encounter Visit Diagnoses Not on filedocumented in this encounter Care Teams Physician Non Invasive Cardiologist Relationship Specialty Start Date End Date Sofy Nicolas MD 1 [facility] [address] [place] [address] PCP - General 06/27/15 documented as of this encounter
--- OUTSIDE RECORDS SUMMARY | 2024-08-21 14:08 | XMS_ITS | Encounter Summary ---
Author Organization [facility] Address [address] [place] [address] Care Team Providers Care Software Implementation Project Manager Name Role Phone Sofy Nicolas MD Primary Care Provider [phone] [phone] Reason for Visit * Reason Onset Date Comments Prior Auth, Medication 01/26/2019 Remicaide Encounter Details Date Type Department Care Team ([facility] Contact Info) Description 01/26/2019 Telephone [facility] Rheumatology & Immunology - [address] [phone] Juve Pond Chi, MD [address] [place] [address], [address] [place] [address] Prior Auth, Medication (Remicaide) Social History Tobacco Use Types Packs/Day Years [...] encounter Miscellaneous Notes * Telephone Encounter - Carmen Bentley - 01/26/2019 1414 EDT Calling to find out if she needs to start prior authorization for member to get Remicaide infusion or if our office does. Patient needs new order and prior authorization. Patient is getting infusion at [facility]. Patient has [facility] insurance. Patient has appointment for injection at hospital on 02-20. Pls call back. documented in this encounter Plan of Treatment Not on file documented as of this encounter Visit Diagnoses Not on filedocumented in this encounter Care Teams Software Implementation Project Manager Relationship Specialty Start Date End Date Sofy Nicolas MD 1 [facility] [address] [place] [phone] PCP - General 06/27/15 documented as of this encounter
--- OUTSIDE RECORDS SUMMARY | 2024-08-21 14:08 | XMS_ITS | Encounter Summary ---
Author Organization [facility] Address [address] [place] [address] Care Team Providers Care Infectious Waste Technician Name Role Phone Sofy Nicolas MD Primary Care Provider [phone] [phone] Encounter Details Date Type Department Care Team (Latest Contact Info) Description 06/22/2017 12:20 EDT - 06/22/2017 12:21 EDT Hospital Encounter [facility] - [address] [address] Obdulia Butt, PEDICAB DRIVER [address] [place] [phone] Discharge Disposition: Home or Self Care Social [...] shopping? Answer Date of Assessment Author No 04/30/2016 8:01 EDT documented as of this encounter Mental Status * Because of a physical, mental, or emotional condition, does this person have serious difficulty concentrating, remembering, or making decisions? Answer Entry Date Author No 04/30/2016 8:01 EDT documented in this encounter Discharge Diagnoses Diagnosis L02.32 Furuncle of buttock-L02.32[ICD-10-CM] documented in this encounter Medications at Time of Discharge chlorhexidine (HIBICLENS) 4 % liquid Apply topically daily 960 mL 11 06/18/2015 inFLIXimab (REMICADE) 100 mg injection Inject 300 mg into the vein every 8 weeks medroxyPROGESTER one (DEPO-PROVERA) 150 mg/mL injection Inject 1 mL into the muscle every 12 weeks. 1 mL 12/28/2016 mupirocin (BACTROBAN) 2 % ointment Apply topically daily. TACROLIMUS (PROTOPIC TOP) Apply topically as needed. 8 documented as of this encounter Discharge Disposition Disposition Code Departure Means Destination Home or Self Care documented in this encounter Plan of Treatment Not on file documented as of this encounter Visit Diagnoses Not on filedocumented in this encounter Care Teams Infectious Waste Technician Relationship Specialty Start Date End Date Sofy Nicolas MD 1 [facility] Level [address] [place] [phone] PCP - General 06/27/15 documented as of this encounter
--- OUTSIDE RECORDS SUMMARY | 2024-08-21 14:08 | XMS_ITS | Encounter Summary ---
Author Organization [facility] Address [address] [place] [address] Care Team Providers Care Crocheter Name Role Phone Sofy Nicolas MD Primary Care Provider [phone] [phone] Reason for Visit * Reason Onset Date Comments Medications Refill 08/28/2019 Encounter Details Date Type Department Care Team ([facility] st Contact Info) Description 08/28/2019 Refill [facility] Rheumatology & Immunology - [address] [phone] Juve Pond Chi, MD [address] [place] [address], [address] [place] [address] Medications Refill Social History Tobacco Use Types Packs/Day Years [...] encounter Miscellaneous Notes * Telephone Encounter - MehdiWoodyry - 08/28/2019 1218 EST Error documented in this encounter Plan of Treatment Not on file documented as of this encounter Visit Diagnoses Not on filedocumented in this encounter Care Teams Crocheter Relationship Specialty Start Date End Date Sofy Nicolas MD 1 [facility] [address] [place] [phone] PCP - General 06/27/15 documented as of this encounter
--- OUTSIDE RECORDS SUMMARY | 2024-08-21 14:08 | XMS_ITS | Encounter Summary ---
Author Organization [facility] Address [address] [place] [address] Care Team Providers Care Floral Designer Salesperson Name Role Phone Sofy Nicolas MD Primary Care Provider [phone] [phone] Reason for Visit * Reason Onset Date Comments Medication Questions 09/16/2018 Encounter Details Date Type Department Care Team ([facility] st Contact Info) Description 09/16/2018 Telephone [facility] Rheumatology & Immunology - [address] [phone] Juve Pond Chi, MD [address] [place] [address], [address] [place] [address] Medication Questions Social History Tobacco Use Types Packs/Day Years [...] encounter Miscellaneous Notes * Telephone Encounter - Ruby Morris RN - 09/16/2018 1554 EST Called and spoke with [place] relayed providers recommendations * Telephone Encounter - Juve Pond Chi, MD - 09/16/2018 1403 EST Let them know - it if fine for [place] to get Tamiflu. * Telephone Encounter - Brody Ramos - 09/16/2018 1301 EST Per Roma, [facility], calling to discuss if it is okay for pt to be prescribed Tamiflu based on her diagnosis. Roma requesting a call back. documented in this encounter Plan of Treatment Not on file documented as of this encounter Visit Diagnoses Not on filedocumented in this encounter Care Teams Floral Designer Salesperson Relationship Specialty Start Date End Date Sofy Nicolas MD 1 [facility] [address] [place] [address] PCP - General 06/27/15 documented as of this encounter
--- OUTSIDE RECORDS SUMMARY | 2024-08-21 14:08 | XMS_ITS | Encounter Summary ---
Author Organization [facility] Address [address] [place] [address] Care Team Providers Care Lab Scientist Name Role Phone Sofy Nicolas MD Primary Care Provider [phone] [phone] Reason for Referral * Consult (3 - 10 Business Days) - Specialty Report Received Specialty Diagnoses / Procedures Referred By Bhavana loyola Referred To Contact Dermatology Diagnoses Furuncle of buttock Juve Pond Chi, MD Phone: tel: fax: [facility] Dermatology [address] [address] Phone: tel: fax: Referral ID Status Reason Start Date Expiration Date Visits Requested Visits Authorized [id number] Specialty Report Received Specialty Services Required 7 1 1 Question Answer Reason for Request: recurrent furuncles requiring I & D; had seen Dr Gaming in the past; needs to take Remicade to control Uveitis. need advice on prevention and treatment of recurrent skin abcesses. Reason for Visit * Reason Onset Date Comments Infusion 06/22/2017 Encounter Details Date Type Department Care Team ([facility] st Contact Info) Description 06/22/2017 Telephone [facility] Rheumatology & Immunology [address] [address] Rebeca Kern RN Infusion Social History Tobacco Use Types Packs/Day Years [...] 04/30/2016 8:01 EDT documented in this encounter Miscellaneous Notes * Telephone Encounter - Crystal Mai RN - 06/23/2017 1528 EDT Left message, have available infusion appt for 07/07 at 12:30. Requested pt to call to reschedule. * Telephone Encounter - Rebeca Kern RN - 06/22/2017 1657 EDT Left message for pt R/T MD response and need to cancel her Remicade infuson which was scheduled foriday 06/25/17 R/T recent procedure. Asked her to call back and speak with nurse about rescheduling. * Telephone Encounter - Juve Pond Chi, MD - 06/22/2017 6099 EDT The culture showed rare Staph aureus which may respond to topical therapy and the I& D. Postpone the Remicade to Jul 02 if possible. I will consult Derm to see if they can see pt again for advice about preventing recurrence of skin abcesses. * Telephone Encounter - Rebeca Kern, RN - 06/22/2017 1430 EDT Received letter from Obdulia Butt NP saying that pt developed a furuncle of her left buttock and had an incision and drainage today, 06/22/17. Because there was no surrounding cellulitis, she didnot start the pt on antibiotics. She did send a sample of the exudate for culture. I put note on your desk. Pt is scheduled for her Remicade infusion on June 25 and I'm concerned that her wound won't be healed and/or culture could come back positive. Should we reschedule her until after culture is back and negative and pt 's would has healed? documented in this encounter Plan of Treatment Scheduled Referrals Name Type Priority Associated Diagnoses Order Schedule AMB CONS/FOLLOW UP DERMATOLOGY Outpatient Referral Routine Furuncle of buttock Ordered: 06/22/2017 documented as of this encounter Visit Diagnoses Diagnosis Furuncle of buttock- Primary Carbuncle and furuncle of buttock documented in this encounter Care Teams Lab Scientist Relationship Specialty Start Date End Date Sofy Nicolas MD 1 [facility] [address] [place] [address] PCP - General 06/27/15 documented as of this encounter
--- OUTSIDE RECORDS SUMMARY | 2024-08-21 14:08 | XMS_ITS | Encounter Summary ---
Author Organization [facility] Address [address] [place] [address] Care Team Providers Care Scoop Operator Name Role Phone Sofy Nicolas MD Primary Care Provider [phone] Reason for Visit * Reason Onset Date Comments Appointment Related 06/25/2017 Encounter Details Date Type Department Care Team ([facility] st Contact Info) Description 06/25/2017 Telephone [facility] Rheumatology & Immunology - [address] [address] Yancy Honeycutt, RN Appointment Related Social History Tobacco Use Types Packs/Day Years [...] encounter Miscellaneous Notes * Telephone Encounter - Yancy Honeycutt, RN - 06/25/2017 0951 EDT Pt returned call to reschedule infusion appt. Agrees with 07/07 @ 12:30 pm. YANCY HONEYCUTT RN documented in this encounter Plan of Treatment Not on file documented as of this encounter Visit Diagnoses Not on filedocumented in this encounter Care Teams Scoop Operator Relationship Specialty Start Date End Date Sofy Nicolas MD 1 [facility] [address] [place] [address] PCP - General 06/27/15 documented as of this encounter
--- OUTSIDE RECORDS SUMMARY | 2024-08-21 14:08 | XMS_ITS | Encounter Summary ---
Author Organization [facility] Address [address] [place] [address] Care Team Providers Care Landscape Manager Name Role Phone Sofy Nicolas MD Primary Care Provider [phone] Reason for Visit * Reason Comments Referral Request Pt referred by Juve Pond for eval of uveitis. Pt has been on Remicade for 11 years. Vision stable. No eye pain. no flashes. No floaters. no diplopia Medication Management Eye drops: none Follow-up POHx: h/o CE/IOL lef t eye, h/o two goniotomies - left eye, h/o laser tx left eye - ?, h/o Capsulotomy - left eye. * Consult (Routine) - Closed Specialty Diagnoses / Procedures Referred By Bhavana loyola Referred To Contact Ophthalmology Diagnoses Uveitis Juve Pond Chi, MD Phone: tel: fax: Referral ID Status Reason Start Date Expiration Date V isits Requested Visits Authorized [id number] Closed Specialty Services Required 04/15/2017 1 1 Encounter Details Date Type Department Care Team (Late st Contact Info) Description 05/24/2017 13:30 EDT Office Visit [facility] Ophthalmology - [facility] [address] [place] [address] Komal Franklin MD 111 [facility] [address] [place] [address] Social History Tobacco Use Types Packs/Day Years [...] 04/30/2016 8:01 EDT documented in this encounter Progress Notes * Komal Franklin MD - 05/24/2017 1330 EDT Chief Complaint Patient presents with ??? Referral Request Pt referred by Juve Pond for eval of uveitis. Pt has been on Remicade for 11 years. Vision stable. No eye pain. no flashes. No floaters. no diplopia ??? Medication Management Eye drops: none ??? Follow-up POHx: h/o CE/IOL left eye, h/o two goniotomies - left eye, h/o laser tx left eye - ?, h/o Capsulotomy - left eye. HPI The patient is a 22 y.o. female seen in consultation at the request of Dr. Pond for uveitis evaluation. She was previously followed by Dr. Foreign Franklin in [facility] and was treated by Dr. Golden in [place] and Dr. Schofield in [place]. She was diagnosed with uveitis at the age of 10, started on Remicaide at age 11. Initially inflammation was in both eyes, but from then on was in left eye. The surgeries have all been in the left eye. She is still on the Remicaide infusions. She is not having any eye symptoms. No redness, no pain. ROS Constitutional: NL ENT/Mouth NL Cardiovascular: NL Respiratory: NL Gastrointestinal: NL Genitourinary: NL Musculoskeletal: NL Integumentary: (h/o psoriaisis) Neurologic: NL Psychiatric: NL Endocrine: NL Hematologic: NL Immunologic: Drug Allergy Post Hole Digging Machine Operator: Exposures: None Other: (depo provera shots) Attestation: Allergies include: Ciprofloxacin; Clindamycin; and Penicillins Patient Active Problem List Diagnosis ??? Uveitis ??? Psoriasis ??? High risk medication use ??? Surveillance for Depo-Provera contraception ??? Depressed mood ??? Chronic back pain ??? Staph skin infection ??? Slow transit constipation Outpatient Prescriptions Marked as Taking for the 05/24/17 encounter (Office Visit) with Komal Franklin MD Medication Sig ??? chlorhexidine (HIBICLENS) 4 % liquid Apply topically daily ??? inFLIXimab (REMICADE) 100 mg injection Inject 300 mg into the vein every 8 weeks ??? medroxyPROGESTERone (DEPO-PROVERA) 150 mg/mL injection Inject 1 mL into the muscle every 12 weeks. ??? mupirocin (BACTROBAN) 2 % ointment Apply topically daily. ??? TACROLIMUS (PROTOPIC TOP) Apply topically as needed. Current Facility-Administered Medications for the 05/24/17 encounter (Office Visit) with Komal Franklin MD Medication ??? medroxyPROGESTERone (DEPO-PROVERA) injection 150 mg Base Eye Exam Visual Acuity (Snellen - Linear) Right Left Dist sc 20/15 -2 20/25 +2 Tonometry (Applanation, 13:56) Right Left Pressure 20 21 Pupils Pupils Dark Light React APD Right PERRL 5 4 Brisk None Left PERRL 5 4 Brisk None Visual Ibrahim Right Left Result Full Full Extraocular Movement Right Left Result Full, Ortho Full, Ortho Neuro/Psych Oriented x3: Yes Mood/Affect: Normal Dilation Both eyes: 2.5% Phenylephrine, 0.5% Mydriacyl @ 14:31 Additional Tests Amsler Right Left Amsler normal -= all 4 corners visualized normal - all 4 corners visualized Color Right Left Ishihara 13/13 correct 13/13 correct Stereo Fly: + Animals: 0/3 correct Circles: 2/9 correct Lan secs Slit Lamp and Fundus Exam External Exam Right Left External Normal Normal Slit Lamp Exam Right Left Lids/Lashes Normal Normal Conjunctiva/Sclera White and quiet White and quiet Cornea Clear Clear Anterior Chamber Deep and quiet Deep and quiet Iris Round and reactive, pharm dil Round and reactive, pharm dil Lens Clear PCIOL s/p yag Vitreous Normal Normal Fundus Exam Right Left Disc Normal scleral cresent C/D Ratio 0.4 0.6 Macula Normal Normal Vessels Normal Normal Periphery Normal Normal DIAGNOSTIC TESTS: Cirrus RNFL OCT Indication: uveitis glaucoma, left eye Quality: right eye good, left eye fair Interpretation: Right: Ave RNFL 97 microns, no focal thinning; Left: Ave RNFL 64 microns, focal superior and inferior thinning IMPRESSION & PLAN: Encounter Diagnoses Name Primary? Uveitis Yes ??? Uveitic glaucoma, left, indeterminate stage ??? Pseudophakia of left eye ??? History of YAG laser capsulotomy of lens of left eye 1. Uveitis Long history of uveitis. No active inflammation. Planning taper of remicaide to every 10 weeks, so will plan to see her back in 3 months to reassess, though she should call sooner if she experiences any symptoms. 2. Uveitic glaucoma, left, indeterminate stage S/p goniotomy by Dr. Schofield in [place]. The optic nerve on that side is somewhat cupped. OCT obtained today And shows thinning of the RNFL. Would like to compare with prior. Will plan to do HVF at hernext visit. Obtaining old records will be useful. 3. Pseudophakia of left eye 4. History of YAG laser capsulotomy of lens of left eye I have reviewed the patient's past medical, family, social and surgical history. I have also reviewed the patient's medications, allergies, and problem list. I performed my own HPI and have reviewed the [facility]'s ROS as well. I personally completed this exam myself. Komal Franklin MD The patient was instructed to call our office or go to emergency room if worse vision, worse symptoms, or new/other concerns arise. documented in this encounter Plan of Treatment Not on file documented as of this encounter Visit Diagnoses Diagnosis Uveitis- Primary Unspecified iridocyclitis Uveitic glaucoma, left, indeterminate stage Pseudophakia of left eye Lens replaced by other means History of YAG laser capsulotomy of lens of left eye documented in this encounter Historical Medications * This list may reflect changes made after this encounter. mupirocin (BACTROBAN) 2 % ointment Apply topically daily. 8 added in this encounter Eye Exam Visual Acuity (Snellen - Linear) Right eye Left eye Dist sc 20/15 -2 20/25 +2 Tonometry (Applanation, 13:56) Right eye Left eye Pressure 20 21 Pupils Pupils Dark Light React APD Right eye PERRL 5 4 Brisk None Left eye PERRL 5 4 Brisk None Visual Ibrahim Right eye Left eye Full Full Extraocular Movement Right eye Left eye Full, Ortho Full, Ortho Neuro/Psych Oriented x3: Yes Mood/Affect: Normal Dilation Both eyes: 2.5% Phenylephrin e, 0.5% Mydriacyl @ 14:31 Amsler Right eye Left eye normal -= all 4 corners visualiz ed normal - all 4 corners visualized Color Right eye Left eye Ishihara correct correct Stereo Fly: + Animals: 0/3 correct Circles: 2/9 correct Lan secs External Exam Right eye Left eye External Normal Normal Slit Lamp Exam Right eye Left eye Lids/Lashes Normal Normal Conjunctiva/Sclera White and quiet White and ken et Cornea Clear Clear Anterior Chamber Deep and quiet Deep and quiet Iris Round and reactive, pharm dil Ro und and reactive, pharm dil Lens Clear PCIOL s/p yag Vitreous Normal Normal Fundus Exam Right eye Left eye Disc Normal scleral cresent C/D Ratio 0.4 0.6 Macula Normal Normal Vessels Normal Normal Periphery Normal Normal Care Teams Landscape Manager Relationship Specialty Start Date End Date Sofy Nicolas MD 1 [facility] [address] [place] [address] PCP - General 06/27/15 documented as of this encounter
--- OUTSIDE RECORDS SUMMARY | 2024-08-21 14:08 | XMS_ITS | Encounter Summary ---
Author Organization [facility] Address [address] [place] [address] Care Team Providers Care Oenologist Name Role Phone Sofy Nicolas MD Primary Care Provider [phone] [phone] Reason for Visit * Reason Onset Date Comments Immunizations 08/11/2018 Encounter Details Date Type Department Care Team ([facility] st Contact Info) Description 08/11/2018 Telephone [facility] Rheumatology & Immunology - [address] [id number] Juve Pond Chi, MD [address] [place] [address], [address] [place] [address] Immunizations Social History Tobacco Use Types Packs/Day Years [...] encounter Miscellaneous Notes * Telephone Encounter - Zoe Tomlinson RN - 08/11/2018 1319 EST Spoke with patient. I advised her that she cannot have any live vaccines. Patient verbalized understanding. * Telephone Encounter - Patricia Mcadams - 08/11/2018 1200 EST Patient is wondering if she is able to get some vaccinations that she needs for school. Please callto discuss. documented in this encounter Plan of Treatment Not on file documented as of this encounter Visit Diagnoses Not on filedocumented in this encounter Care Teams Oenologist Relationship Specialty Start Date End Date Sofy Nicolas MD 1 [facility] [address] [place] [address] PCP - General 06/27/15 documented as of this encounter
--- OUTSIDE RECORDS SUMMARY | 2024-08-21 14:08 | XMS_ITS | Encounter Summary ---
Author Organization [facility] Address [address] [place] [address] Care Team Providers Care Drying Machine Receiver Name Role Phone Sofy Nicolas MD Primary Care Provider [phone] [phone] Reason for Visit * Reason Onset Date Comments Home Infusion 01/25/2019 Hospital needs n ew Remicade orders as old ones have Encounter Details Date Type Department Care Team ([facility] st Contact Info) Description 01/25/2019 Telephone [facility] Rheumatology & Immunology - [address] [address] Juve Pond Chi, MD [address] [place] [address], [address] [place] [address] Home Infusion (Hospital needs new Remicade orders as old ones have ) Social History Tobacco Use Types Packs/Day Years [...] Telephone Encounter - Crystal Mai RN - 01/31/2019 1111 EDT Left message on pt's VM, prior auth completed and Renflexis approved for 300mg x 6 infusions for 12months. Had called [facility] infusion appt for 02/20 at 9:30; pt agreeable with appt date and time. Pt returned call one hour later. Education given regarding biosimilar medication. Pt voiced concernthat new medication will not work as well as Remicade. Advised pt to monitor vision closely and to report any acute flare sx such as eye redness, eye pain/pressure, or vision disturbances. Pt verbalized understanding and agreeable to call clinic as soon as possible if flare sx develop after switching medications. Therapy plan order for Renflexis with requested paperwork faxed to [facility]. Confirmation report received. * Telephone Encounter - Jacklyn Poe - 01/27/2019 1011 EDT Awaiting prior auth. Tasha vela. * Telephone Encounter - Karen Mcdowell - 01/25/2019 1221 EDT Leslee calling from Infusion and the following orders have for Remicade and they need new orders send to them documented in this encounter Plan of Treatment Not on file documented as of this encounter Visit Diagnoses Not on filedocumented in this encounter Care Teams Drying Machine Receiver Relationship Specialty Start Date End Date Sofy Nicolas MD 1 [facility] [address] [place] [address] PCP - General 06/27/15 documented as of this encounter
--- OUTSIDE RECORDS SUMMARY | 2024-08-21 14:08 | XMS_ITS | Encounter Summary ---
Author Organization [facility] Address [address] [place] [address] Care Team Providers Care Range Management Specialist Name Role Phone Sofy Nicolas MD Primary Care Provider [phone] [phone] Reason for Visit * Reason Onset Date Comments Orders (Non Pre-visit) 08/28/2019 Infusion Encounter Details Date Type Department Care Team ([facility] Contact Info) Description 08/28/2019 Telephone [facility] Rheumatology & Immunology - [address] [id number] Juve Pond Chi, MD [address] [place] [address], [address] [place] [address] Orders (Non Pre-visit) (Infusion) Social History Tobacco Use Types Packs/Day Years [...] Telephone Encounter - Crystal Mai RN - 09/06/2019 1505 EST Pt called, requested to have Remicade therapy plan to be faxed at [facility] in [facility]. Has returned from [place] where pt was receiving infusions in ophthalmology office since January 2019, last infusion 07/11/19. Receives infusion every 10-12 weeks. Pt stated will call [facility] to schedule next infusion due late August- early September. Forwarded request to Patti Poe MA who stated will fax order and PA to [facility]. * Telephone Encounter - Jacklyn Poe MA - 08/31/2019 0841 EST Called [facility] about her infusions and her last infusion was 12/15/18. Where is she getting herinfusion? * Telephone Encounter - Crystal Mai RN - 08/29/2019 1316 EST Left message on pt's VM. Pt had called requesting new therapy order for Remicade infusions at [facility]. Need to inquire when was last infusion. Insurance had denied Remicade, wanted pt to try Renflexis (infliximab). Has pt been receiving this medication? Pt receives infusion every 10 weeks. Last therapy order was dated 01/13/19 with next infusion scheduled for 02/23/19. This therapy order should be good until 01/14/20, PA good until 02/01/20. PA is for 300mg x 6 infusions over next 12 months. Since approval date of PA, pt should have received three infusions to date (02/23,~ 9/5 and ~07/13). At least two more infusions should be approved under PA. Requested pt to return call to discuss therapy. * Telephone Encounter - Tasha Harding - 08/28/2019 1219 EST Patient needs an order for infusion (inFLIXimab (REMICADE), to be sent to [facility]. Please call for more info documented in this encounter Plan of Treatment Not on file documented as of this encounter Visit Diagnoses Not on filedocumented in this encounter Care Teams Range Management Specialist Relationship Specialty Start Date End Date Sofy Nicolas MD 1 [facility] [address] [place] [phone] PCP - General 06/27/15 documented as of this encounter
--- OUTSIDE RECORDS SUMMARY | 2024-08-21 14:08 | XMS_ITS | Encounter Summary ---
Author Organization [facility] Address [address] [place] [address] Care Team Providers Care Hog Grader Name Role Phone Sofy Nicolas MD Primary Care Provider [phone] Encounter Details Date Type Department Care Team ([facility] st Contact Info) Description 04/29/2017 Results Only [facility] [phone] Obdulia Butt, BLACK TOP PAVER OPERATOR [address] [place] [phone] Social History Tobacco Use Types Packs/Day Years [...] 04/30/2016 8:01 EDT documented in this encounter Plan of Treatment Not on file documented as of this encounter Procedures Procedure Name Priority Date/Time Associated Diagnosis Comments BACTERIAL CULTURE/SMEAR Routine 04/29/2017 16:15 EDT documented in this encounter Results * BACTERIAL CULTURE/SMEAR, OTHER (04/29/2017 16:15 EDT) Gram Smear Result No polys seen 04/29/2017 20:11 EDT [facility] Gram Smear Result No bacteria seen 04/29/2017 20:11 EDT [facility] Result Few STAPHYLOCOCC US AUREUS 05/03/2017 10:05 EDT [facility] Result Rare Usual skin swathi 05/03/2017 10:05 EDT [facility] Result Smear suggests minimal or no inflammation . 05/03/2017 10:05 EDT [facility] DRAINAGE FLUID SPECIMEN / Unknown 04/29/2017 16:15 EDT 04/29/2017 18:18 EDT Comment:Specimen submitted o n a flocked swab. Narrative Organism Antibiotic Method Susceptibility Few staphylococcus aureus Susceptibility comment SUSCEPTIBILITY (ISMAEL) Few staphylococcus aureus Susceptibility comment SUSCEPTIBILITY (ISMAEL) Susceptible to nafcillin, cephalosporins and other beta lactam antibiotics (mecA gene product absent). Few staphylococcus aureus Oxacillin ISMAEL IN-HOUSE METHOD Susceptible Few staphylococcus aureus Vancomycin ISMAEL IN-HOUSE METHOD Susceptible Few staphylococcus aureus Erythromycin ISMAEL IN-HOUSE METHOD Susceptible Few staphylococcus aureus Clindamycin ISMAEL IN-HOUSE METHOD Susceptible Few staphylococcus aureus Ciprofloxacin ISMAEL IN-HOUSE METHOD Susceptible Few staphylococcus aureus Tetracycline ISMAEL IN-HOUSE METHOD Susceptible Few staphylococcus aureus Trimethoprim-Sulfamet hoxazole ISMAEL IN-HOUSE METHOD /38: Susceptible Few staphylococcus aureus Cefazolin ISMAEL IN-HOUSE METHOD Susceptible us Obdulia Butt BLACK TOP PAVER OPERATOR MICROBIOLOGY - GENERAL ORDE PARUL Final Result [facility] [address] [place] [address] documented in this encounter Visit Diagnoses Not on filedocumented in this encounter Care Teams Hog Grader Relationship Specialty Start Date End Date Sofy Nicolas MD 1 [facility] [address] [place] [address] PCP - General 06/27/15 documented as of this encounter
--- OUTSIDE RECORDS SUMMARY | 2024-08-21 14:08 | XMS_ITS | Encounter Summary ---
Author Organization [facility] Address [address] [place] [address] Care Team Providers Care Medical Center Manager Name Role Phone Sofy Nicolas MD Primary Care Provider [phone] Reason for Referral * Medication Prior Authorization (3 - 10 Business Days) - Authorized Specialty Diagnoses / Procedures [facility] By [facility] Referred To Contact Diagnoses Uveitis Juve Pond Chi, MD Phone: tel: fax: Referral ID Status Reason Start Date Expiration Date Visits Requested Visits Authorized [id number] Authorized Medication Prior Authorization 0 1 1 Question Answer Medication to be Prior Authorized: Remicade 300 mg Q 10 weeks--Patient to receive at [facility] in [facility] Comments The purpose of this consult request is to inform the scheduling staff that a medication needs to be prior-authorized before it is prescribed and/or administered. Reason for Visit * Reason Onset Date Comments Appointment Related 09/22/2019 Prior Auth, Medication 09/22/2019 Encounter Details Date Type Department Care Team (Late Contact Info) Description 09/22/2019 Telephone [facility] Rheumatology & Immunology - [facility] [address] [place] [address] Ruby Morris RN Appointment Related; Prior Auth, Medication Social History Tobacco Use Types Packs/Day Years [...] Telephone Encounter - Crystal Mai RN - 09/26/2019 1215 EST Left message on pt's VM. Have faxed therapy plan and new prior auth to [facility] in [facility]. Advised pt to call [facility] to schedule infusion appt. * Telephone Encounter - Crystal Mai RN - 09/26/2019 1132 EST Called [facility], spoke with [place] who confirmed that pt has been approved for brand name Remicade. Approval reference # [id number], approval period through 09/22/20. Requested approval letter from [facility] to be be faxed to this office, fax # [phone] given. Once received approval letter, will fax same letter and Remicade therapy plan to [facility] in [facility]. Will notify pt of faxed paperwork so pt can call hospital to schedule infusion appt. Pt is OVERDUE for infusion. * Telephone Encounter - Ruby Morris RN - 09/22/2019 1002 EST Spoke with Leslee hoang at [facility] [phone]. She stated patient has notreceived infusions from then since last January. At that time they had received a order from us for Renflexis, but patient did not receive there she received [place]icade [place]. Since then patient is back in [place] and wanting to get Remicade which has been approved by her insurance [employer] through 07/2019. (Notef[employer] insurance was faxed to our office).. 1. Leslee CHAVEZ at [facility] will now need a new order for Remicade--Order given to provider to sign and date 2. Copy of Prior auth --New prior auth entered for Remicade and alerted PA Specialist FAX number for [facility] is [phone] documented in this encounter Plan of Treatment Scheduled Referrals Name Type Priority Associated Diagnoses Order Schedule AMB MEDICATION PRIOR AUTHORIZATION Outpatient Referral Routine Uveitis Ordered: 09/22/2019 documented as of this encounter Visit Diagnoses Diagnosis Uveitis- Primary Unspecified iridocyclitis documented in this encounter Care Teams Medical Center Manager Relationship Specialty Start Date End Date Sofy Nicolas MD 1 [facility] [address] [place] [address] PCP - General 06/27/15 documented as of this encounter
--- OUTSIDE RECORDS SUMMARY | 2024-08-21 14:08 | XMS_ITS | Encounter Summary ---
Author Organization [facility] Address [address] [place] [address] Care Team Providers Care Press Tender Incendiary Grenade Name Role Phone Sofy Nicolas MD Primary Care Provider [phone] Reason for Visit * Reason Comments Eye Problem I month follow up fo r IOP check for Uveitis/ Uveitic glaucoma left eye. [facility] good both eyes. No eye pain or irritation. No flashes. No floaters. Patient's last Remicade infusion was 11/25/17. Medication Management Eye drops: None Encounter Details Date Type Department Care Team (Late st Contact Info) Description 12/27/2017 14:00 EDT Office Visit [facility] Ophthalmology [id number] [place] [address] Komal Franklin MD [address] [facility], [address] [place] [address] Social History Tobacco Use Types [...] 07/07/2017 12:16 EST documented in this encounter Progress Notes * Komal Franklin MD - 12/27/2017 1400 EDT Chief Complaint Patient presents with ??? Eye Problem I month follow up for IOP check for Uveitis/ Uveitic glaucoma left eye. [facility] good both eyes. No eye pain or irritation. No flashes. No floaters. Patient's last Remicade infusion was 11/25/17. ??? Medication Management Eye drops: None HPI The patient is a 22 y.o. female seen for follow up for uveitic glaucoma of the left eye. At her last visit, she had trace inflammation in the left eye and was on topical steroids until her most remicade infusion on 11/26. No pain or redness in the left eye. No floaters. ROS Constitutional: NL ENT/Mouth NL Cardiovascular: NL Respiratory: NL Gastrointestinal: NL Genitourinary: NL Musculoskeletal: Joint Pain Integumentary: NL Neurologic: NL Psychiatric: NL Endocrine: Hematologic: Immunologic: Drug Allergy Admission Specialist: Exposures: None Other: Attestation: Allergies include: Ciprofloxacin; Clindamycin; and Penicillins Patient Active Problem List Diagnosis ??? Uveitis ??? High risk medication use ??? Surveillance for Depo-Provera contraception ??? Depressed mood ??? Chronic back pain ??? Staph skin infection ??? Slow transit constipation Outpatient Prescriptions Marked as Taking for the 12/27/17 encounter (Office Visit) with Komal Franklin MD Medication Sig ??? chlorhexidine (HIBICLENS) 4 % liquid Apply topically daily ??? inFLIXimab (REMICADE) 100 mg injection Inject 300 mg into the vein every 8 weeks ??? medroxyPROGESTERone (DEPO-PROVERA) 150 mg/mL injection Inject 1 mL into the muscle every 12 weeks. Current Facility-Administered Medications for the 12/27/17 encounter (Office Visit) with Komal Franklin MD Medication ??? medroxyPROGESTERone (DEPO-PROVERA) injection 150 mg Base Eye Exam Visual Acuity (Snellen - Linear) Right Left Dist sc 20/20 20/25 +2 Tonometry (Applanation, 14:13) Right Left Pressure 14 13 Pupils Dark Light React APD Right 5 3 Brisk None Left 4 3 Brisk None Extraocular Movement Right Left Result Full Full Neuro/Psych Oriented x3: Yes Mood/Affect: Normal Slit Lamp and Fundus Exam External Exam Right Left External Normal Normal Slit Lamp Exam Right Left Lids/Lashes Normal Normal Conjunctiva/Sclera White and quiet White and quiet Cornea Clear Clear Anterior Chamber Deep and quiet Deep and quiet Iris Round and reactive Round and reactive Lens PCIOL DIAGNOSTIC TESTS: IMPRESSION & PLAN: Encounter Diagnoses Name Primary? Uveitis Yes ??? Uveitic glaucoma, left, indeterminate stage 1. Uveitis No evidence of inflammation today. IOP is good. Follow up in 3 months, sooner if any new or recurrent symptoms. 2. Uveitic glaucoma, left, indeterminate stage IOP is fine today. I have reviewed the patient's past medical, family, social and surgical history. I have also reviewed the patient's medications, allergies, and problem list. I performed my own HPI and have reviewed the tech's ROS as well. I personally completed this exam myself. Komal Franklin MD The patient was instructed to call our office or go to emergency room if worse vision, worse symptoms, or new/other concerns arise. documented in this encounter Plan of Treatment Not on file documented as of this encounter Visit Diagnoses Diagnosis Uveitis- Primary Unspecified iridocyclitis Uveitic glaucoma, left, indeterminate stage documented in this encounter Eye Exam Visual Acuity (Snellen - Linear) Right eye Left eye Dist sc 20/20 20/25 +2 Tonometry (Applanation, 14:13) Right eye Left eye Pressure 14 13 Pupils Dark Light React APD Right eye 5 3 Brisk None Left eye 4 3 Brisk None Extraocular Movement Right eye Left eye Full Full Neuro/Psych Oriented x3: Yes Mood/Affect: Normal External Exam Right eye Left eye External Normal Normal Slit Lamp Exam Right eye Left eye Lids/Lashes Normal Normal Conjunctiva/Sclera White and quiet White and ken et Cornea Clear Clear Anterior Chamber Deep and quiet Deep and quiet Iris Round and reactive Round and heidi ctive Lens PCIOL Care Teams Press Tender Incendiary Grenade Relationship Specialty Start Date End Date Sofy Nicolas MD 1 [facility] [address] [place] [address] PCP - General 06/27/15 documented as of this encounter
--- OUTSIDE RECORDS SUMMARY | 2024-08-21 14:08 | XMS_ITS | Encounter Summary ---
Author Organization [facility] Address [address] [place] [address] Care Team Providers Care Quilting Machine Helper Name Role Phone Sofy Nicolas MD Primary Care Provider [phone] Reason for Visit * Reason Onset Date Comments Infusion 01/13/2019 Encounter Details Date Type Department Care Team (Late st Contact Info) Description 01/13/2019 Orders Only [facility] Rheumatology & Immunology - [address] [id number] Juve Pond Chi, MD [address] [place] [address], [address] [place] [address] Social History Tobacco Use Types [...] documented in this encounter Progress Notes * Jacklyn Poe - 01/13/2019 1101 EDT Paper therapy plan in Dr Pond's box. Will fax to Radha when complete. documented in this encounter Plan of Treatment Not on file documented as of this encounter Visit Diagnoses Not on filedocumented in this encounter Care Teams Quilting Machine Helper Relationship Specialty Start Date End Date Sofy Nicolas MD 1 [facility] [address] [place] [address] PCP - General 06/27/15 documented as of this encounter
--- OUTSIDE RECORDS SUMMARY | 2024-08-21 14:08 | XMS_ITS | Encounter Summary ---
Author Organization [facility] Address [address] [place] [address] Care Team Providers Care Business Practices Supervisor Name Role Phone Sofy Nicolas MD Primary Care Provider [phone] Reason for Visit * Reason Onset Date Comments Medication Management 11/05/2017 Encounter Details Date Type Department Care Team ([facility] st Contact Info) Description 11/05/2017 Telephone [facility] Dermatology 3rd [address] [id number] Rose Sahu MD PhD [address] [place] [address], [address] [place] [address] Medication Management Social History Tobacco Use Types Packs/Day Years [...] encounter Miscellaneous Notes * Telephone Encounter - Sumanth Chavarriasey - 11/05/2017 6955 EST Patient states she has been on antibiotics for 2 weeks and her staph infection has not completely gone away and is wondering if she should be prescribed more antibiotics or needs to be seen as she does not want for the infection to get worse again. Please call patient. documented in this encounter Plan of Treatment Not on file documented as of this encounter Visit Diagnoses Not on filedocumented in this encounter Care Teams Business Practices Supervisor Relationship Specialty Start Date End Date Sofy Nicolas MD 1 [facility] [address] [place] [address] PCP - General 06/27/15 documented as of this encounter
--- OUTSIDE RECORDS SUMMARY | 2024-08-21 14:08 | XMS_ITS | Encounter Summary ---
Author Organization [facility] Address [address] [place] [address] Care Team Providers Care Marble Mechanic Helper Name Role Phone Sofy Nicolas MD Primary Care Provider [phone] Reason for Visit * Reason Comments Telemedicine Video Visit Patient gave ve rbal consent for today's video visit Follow-up doing well Encounter Details Date Type Department Care Team ([facility] st Contact Info) Description 01/03/2020 14:40 EDT Telemedicine [facility] Rheumatology & Immunology - [address] [id number] Juve Pond Chi, MD [address] [place] [address], [address] [place] [address] Uveitis (Primary Dx); Furuncle of buttock; Encounter for long-term (current) use of medications Social History Tobacco Use Types Packs/Day Years [...] 07/07/2017 12:16 EST documented in this encounter Patient Instructions * Patient Instructions* Juve Pond Chi, MD - 01/03/2020 14:40 EDT Continue current meds. documented in this encounter Progress Notes * Juve Pond Chi, MD - 01/03/2020 1440 EDT Subjective: Patient ID: Orlando Bearden is an 24 y.o. female. Chief Complaint Patient presents with ??? Telemedicine Video Visit ??? 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 Well-controlled on Remicade infusions: 300 mg every 10 weeks in [place]. We will renew the order to continue the infusions. She should get CBC, CMP every 3-4 months. ?? Recurrent furuncles of the buttocks and staph infections: Continue Hibiclens baths. She gets appropriate I&D and antibiotics as needed while holding Remicade for those episodes. Since last visit: Patient has been receiving Remicade 300 mg through her remote advisor, Dr. Osei Golden, in [place], [place] every 10 weeks. She had been receiving Remicade at [facility]. She reports that the pressure in her left eye is borderline high and in the teens,but she has had no recurrence of uveitis. Her next infusion in [place] is February 12. She denies any infections and in particular, the past furuncles/boils on her buttocks have not flared for 1 year. She continues to bathe with Hibiclens. Denies any other joint pains or swelling. AM stiffness: No Physical activity: Hikes; taking online courses for nursing degree. Patient Active Problem List Diagnosis ??? Uveitis ??? High risk medication use ??? Surveillance for Depo-Provera contraception ??? Depressed mood ??? Chronic back pain ??? Staph skin infection ??? Slow transit constipation Past Medical History: Diagnosis Date ??? Cataract removal - left eye ??? Glaucoma s/p goniotomies x 2 left eye ??? Hearing difficulty ??? Joint pain ??? Psoriasis started on remicade ??? Varicella ??? Vision abnormalities Past Surgical History: Procedure Laterality Date ??? CAPSULOTOMY Left ??? CATARACT REMOVAL Left ??? CATARACT REMOVAL WITH IMPLANT Left 2011 ??? EYE SURGERY ??? GLAUCOMA SURGERY Left ??? INTRAOCULAR LENS PROSTHESIS INSERTION Left ??? TONSILLECTOMY Current Outpatient Medications on File Prior to Visit Medication Sig Dispense Refill ??? chlorhexidine (HIBICLENS) 4 % liquid Apply topically daily 960 mL 11 ??? inFLIXimab (REMICADE) 100 mg injection Inject 300 mg into the vein every 8 weeks ??? medroxyPROGESTERone (DEPO-PROVERA) 150 mg/mL injection Inject 1 mL into the muscle every 12 weeks. 1 mL 0 No current facility-administered medications on file prior to visit. Allergies Allergen Reactions ??? Ciprofloxacin Hives ??? Clindamycin ??? Penicillins ROS - See HPI I reviewed the 10 point ROS performed by the MA or nurse which is as documented in Epic. Objective: Physical Exam Constitutional: She is oriented to person, place, and time. No distress. Cheerful, young female HENT: Mouth/Throat: Mucous membranes are moist. Dentition is normal. Normocephalic Eyes: Conjunctivae and EOM are normal. Pulmonary/Chest: No respiratory distress. Musculoskeletal: Normal range of motion. Visual inspection revealed no swollen joints. Neurological: She is alert and oriented to person, place, and time. Skin: No rash noted. Psychiatric: She has a normal mood and affect. Her behavior is normal. 07/11/2019 outside labs: CBC normal LFTs normal RAPID3 SCORES AND INTERPRETATION 04/30/2016 04/15/2017 01/09/2019 01/03/2020 Functional Status 0 0 0 0 Pain Tolerance 3.5 0 - No Pain 1 0 - No Pain Global Estimate 1.5 3 3 0 - Very Well RAPID3 5 3 4 0 Interpretation Low Near Remission Low Near Remission Assessment: 1. Uveitis 2. Furuncle of buttock 3. Encounter for long-term (current) use of medications Plan: Uveitis- No flares for the past several years-associated with history of psoriasis which is in remission. She has been receiving Remicade 300 mg for years. She is followed by Dr. Osei Golden, a uveitis expert, who is administering her Remicade. Patientreports he would like to taper her Remicade, which would require frequent follow-up visits with him. History of furuncles on the buttocks- Secondary to staph. She has not had any flares over the past year which is attributable to bathing with Hibiclens. Barriers to learning identified: No Patient verbalizes understanding and agrees with plan Yes Copy of this note will be sent to PCP: Sofy Nicolas (Portions of this document may have been prepared with speech recognition software or keyboard dataentry techniques. Minor irregularities or keyboarding misprints may be present.) The concept of ???Telemedicine?? has been described to the patient.? Patient has been informed of the anticipated benefits and possible risks.? Patient understands the information provided regardingtelemedicine, has had the opportunity to ask questions about this information, and all questions have been answered to patient???s satisfaction. Patient consents for the use of telemedicine in his/her medical care and authorizes the transmission of any relevant medical information to providers and their staff involved in patient???s medical or mental health care. TELEMEDICINE VIDEO VISIT Today's visit was provided through telemedicine video conferencing: The location of the patient : Home The location of the provider: Clinic Exam Room The following staff and their role did participate in today's encounter visit: MD Juve Campos Chi, Chi, MD 01/03/2020 * Jacklyn Poe MA - 01/03/2020 1440 EDT REVIEW OF SYSTEMS: Yes No Yes No Fever X Joint pain X Weight gain or loss pounds (lbs) Duration of AM joint stiffness hours / min Eye pain or dryness x Numbness/tingling X Mouth or nose sores X Heart burn / Nausea X Chest pain X Diarrhea X Shortness of Breath X Blood in stool X Cough X Burning on urination X Skin rash X Hand/Foot color change in cold X Are our immunization records accurate per patient report? (i.e. influenza, pneumococcal, shingles) Yes No If no, note change(s) below and update record * Jacklyn Poe MA - 01/03/2020 1440 EDT [phone] Dr Golden and gretchen info over. documented in this encounter Plan of Treatment Not on file documented as of this encounter Visit Diagnoses Diagnosis Uveitis- Primary Unspecified iridocyclitis Furuncle of buttock Carbuncle and furuncle of buttock Encounter for long-term (current) use of medications Encounter for long-term (current) use of other medications documented in this encounter Historical Medications * This list may reflect changes made after this encounter. timolol (TIMOPTIC-XE) 0.25 % ophthalmic gel-forming Place 1 Drop into the left eye daily. added in this encounter Care Teams Marble Mechanic Helper Relationship Specialty Start Date End Date Sofy Nicolas MD 1 [facility] [address] [place] [address] PCP - General 06/27/15 documented as of this encounter
--- OUTSIDE RECORDS SUMMARY | 2024-08-21 14:08 | XMS_ITS | Encounter Summary ---
Author Organization [facility] Address [address] [place] [address] Care Team Providers Care Assistant Scientist Name Role Phone Sofy Nicolas MD Primary Care Provider [phone] [phone] Reason for Visit * Reason Comments Follow-up had ski accident Encounter Details Date Type Department Care Team ([facility] Contact Info) Description 01/09/2019 14:25 EDT Office Visit [facility] Rheumatology & Immunology - [address] [id number] Juve Pond Chi, MD [address] [place] [address], [address] [place] [address] Uveitis (Primary Dx); Furuncle of [...] on file documented as of this encounter Last Filed Vital Signs Vital Sign Reading Time Taken Comments Blood Pressure 102/64 01/09/2019 1423 EDT Pulse 62 01/09/2019 1423 EDT Temperature - - Respiratory Rate - - Oxygen Saturation - - Inhaled Oxygen Concentration - - Weight 60.8 kg (134 lb) 01/09/2019 1423 EDT Height - - Body Mass Index 21.47 11/26/2017 1317 EDT documented in this encounter Functional Status * Because of [...] Patient Instructions* Juve Pond Chi, MD - 01/09/2019 14:25 EDT Continue current meds. Have [facility] send test results to us. documented in this encounter Progress Notes * Jacklyn Poe - 01/09/2019 142 EDT REVIEW OF SYSTEMS: Yes No Yes No Fever X Joint pain X Weight gain or loss pounds (lbs) Duration of AM joint stiffness hours / min Eye pain or dryness X Numbness/tingling X Mouth or nose sores X Heart burn / Nausea X Chest pain X Diarrhea X Shortness of Breath X Blood in stool X Cough X Burning on urination X Skin rash x Hand/Foot color change in cold X Are our immunization records accurate per patient report? (i.e. influenza, pneumococcal, shingles) Yes No If no, note change(s) below and update record * Juve Pond Chi, MD - 01/09/2019 1428 EDT Images from the original note were not included. Subjective: Patient ID: Orlando Bearden is an 23 y.o. female. Chief Complaint Patient presents with ??? 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 Getting [place]icade [place] [facility] q 10 weeks. Last infusion 2 weeks ago. Flared in groin with psoriasis in Sep. Eyes have been good. She had a staph furuncle on her low back which required I & D; without complete resolution and the boil opened and drained on its own requiring packing x 2 weeks. Remicade was held during that period of time. She took doxycycline then bactrim. The infection eventually cleared, and shewas able to restart Remicade. She does daily cleansing with Hibiclens. She gets a staph infection qseveral months. Had ski accident in Aug when she fell on a rock breaking 3 ribs, and bruising kidney and lung; she stayed in the hospital for 3 days and subsequently recovered fully. Denies any other joint pains or swelling. AM stiffness: no Physical activity: walking. Involved in the online nursing degree program. Patient Active Problem List Diagnosis ??? Uveitis [...] INTRAOCULAR LENS PROSTHESIS INSERTION Left ??? TONSILLECTOMY Outpatient Medications Marked as Taking for the 01/09/19 encounter (Office Visit) with Juve Pond Chi, MD Medication Sig Dispense Refill ??? chlorhexidine (HIBICLENS) 4 % liquid Apply topically daily 960 mL 11 ??? inFLIXimab (REMICADE) 100 mg injection Inject 300 mg into the vein every 8 weeks ??? medroxyPROGESTERone (DEPO-PROVERA) 150 mg/mL injection Inject 1 mL into the muscle every 12 weeks. 1 mL 0 ROS - See HPI I reviewed the 10 point ROS performed by the nurse which is as documented in Prism. Objective: BP 102/64 (BP Cuff Location: Left arm, Patient Position: Sitting, BP Cuff Sizes: Adult, regular) Pulse 62 Wt 60.8 kg (134 lb) BMI 21.47 kg/m?? Physical Exam Constitutional: She is oriented to person, place, and time. She appears well- developed and well-nourished. No distress. Slender, young female HENT: Head: Normocephalic and atraumatic. Mouth/Throat: No oropharyngeal exudate. Eyes: EOM are normal. Pupils are equal, round, and reactive to light. Neck: No thyromegaly present. Cardiovascular: Normal rate, regular rhythm and normal heart sounds. Pulmonary/Chest: Effort normal and breath sounds normal. Abdominal: Soft. She exhibits no mass. There is no tenderness. Musculoskeletal: a complete musculoskeletal exam of the upper and lower extremities was performed and was normal except for findings shown on the homonculus: Lymphadenopathy: She has no cervical adenopathy. Neurological: She is alert and oriented to person, place, and time. No cranial nerve deficit. Skin: No nail onycholysis or pitting. Psychiatric: She has a normal mood and affect. Her behavior is normal. Vitals reviewed. 08/09/2018: Measles antibody IgG +, Mumps IgG negative Rubella IgG negative Hep C antibody negative Varicella antibody negative RAPID3 SCORES AND INTERPRETATION 04/30/2016 04/15/2017 01/09/2019 Functional Status 0 0 0 Pain Tolerance 3.5 0 - No Pain 1 Global Estimate 1.5 3 3 RAPID3 5 3 4 Interpretation Low Near Remission Low Assessment: 1. Uveitis 2. Furuncle of buttock 3. 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 Well-controlled on Remicade infusions: 300 mg every 10 weeks in [place]. We will renew the order to continue the infusions. She should get CBC, CMP every 3-4 months. Recurrent furuncles of the buttocks and staph infections: Continue Hibiclens baths. She gets appropriate I&D and antibiotics as needed while holding Remicade for those episodes. Barriers to learning identified: No Patient verbalizes understanding and agrees with plan Yes Return in about 1 year (around 01/10/2020). (Portions of this document may have been prepared with speech recognition software or keyboard dataentry techniques. Minor irregularities or keyboarding misprints may be present.) Juve Pond MD documented in this encounter Plan of Treatment Not on file documented as of this encounter Visit Diagnoses Diagnosis Uveitis- Primary Unspecified iridocyclitis Furuncle of buttock Carbuncle and furuncle of buttock Encounter for long-term (current) use of medications Encounter for long-term (current) use of other medications documented in this encounter Discontinued Medications Medication Sig Discontinue Reason Start Date End Da te prednisoLONE (PRED FORTE) 1 % ophthalmic suspension Place 1 Drop into the left eye 4 times daily. 11/19/2017 01/09/2019 documented as of this encounter Care Teams Assistant Scientist Relationship Specialty Start Date End Date Sofy Nicolas MD 1 [facility] [address] [place] [address] PCP - General 06/27/15 documented as of this encounter
--- OUTSIDE RECORDS SUMMARY | 2024-08-21 14:08 | XMS_ITS | Encounter Summary ---
Author Organization [facility] Address [address] [place] [address] Care Team Providers Care Sales And Marketing Coordinator Name Role Phone Sofy Nicolas MD Primary Care Provider [phone] Reason for Visit * Reason Comments Contraception here by self for dep o Encounter Details Date Type Department Care Team (Late st Contact Info) Description 11/17/2017 15:30 EDT [facility] Only [facility] [address] [address] Unknown, Provider, Nurse, Proc [facility] Juan Carlos Rolle RN Surveillance for Depo-Provera contraception (Primary Dx) Social History Tobacco Use Types Packs/Day Years [...] Sign Reading Time Taken Comments Blood Pressure 98/68 11/17/2017 1530 EDT Pulse - - Temperature - - Respiratory Rate - - Oxygen Saturation - - Inhaled Oxygen Concentration - - Weight 59.9 kg (132 lb) 11/17/2017 1530 EDT Height - - Body Mass Index 21.05 07/07/2017 1215 EST documented in this encounter Functional Status * [...] documented in this encounter Progress Notes * Jyothi Reynolds, RN - 11/17/2017 1530 EDT Here by self for depo. Last Depo-Provera: 08/20/17 Side Effects if any: none. Serum HCG indicated? No Depo-Provera 150 mg IM given by: Niels Reynolds RN . Next appointment due February 02. documented in this encounter Plan of Treatment Not on file documented as of this encounter Visit Diagnoses Diagnosis Surveillance for Depo-Provera contraception- Primary Surveillance of other previously prescribed contraceptive method documented in this encounter Care Teams Sales And Marketing Coordinator Relationship Specialty Start Date End Date Sofy Nicolas MD 1 [facility] [address] [place] [address] PCP - General 06/27/15 documented as of this encounter
--- OUTSIDE RECORDS SUMMARY | 2024-08-21 14:08 | XMS_ITS | Encounter Summary ---
Author Organization [facility] Address [address] [place] [address] Care Team Providers Care Project Management Professional Name Role Phone Sofy Nicolas MD Primary Care Provider [phone] [phone] Reason for Visit * Reason Onset Date Comments Medication Problem 01/30/2019 pt wants Reinier ciara not Inflectra Encounter Details Date Type Department Care Team ([facility] st Contact Info) Description 01/30/2019 Telephone [facility] Rheumatology & Immunology - [address] [id number] Juve Pond Chi, MD [address] [place] [address], [address] [place] [address] Medication Problem (pt wants Remicade not Inflectra ) Social History Tobacco Use Types Packs/Day [...] Encounter - Crystal Mai RN - 01/31/2019 1135 EDT This has been addressed. Pt is approved for Renflexis as insurance denied Remicade (this is new insurance for pt). Please see other T.C. 01/25 * Telephone Encounter - Karen Mcdowell - 01/30/2019 1605 EDT Pt calling as she just found out from her insurance company she has been approved for Inflectra so pt is looking for Remicade and not Inflectra for med Pt will be out of Remicade and she will need this at her next appt 02-23-19 Please call pt back documented in this encounter Plan of Treatment Not on file documented as of this encounter Visit Diagnoses Not on filedocumented in this encounter Care Teams Project Management Professional Relationship Specialty Start Date End Date Sofy Nicolas MD 1 [facility] [address] [place] [phone] PCP - General 06/27/15 documented as of this encounter
--- OUTSIDE RECORDS SUMMARY | 2024-08-21 14:08 | XMS_ITS | Encounter Summary ---
Author Organization [facility] Address [address] [place] [address] Care Team Providers Care Manager Health Name Role Phone Sofy Nicolas MD Primary Care Provider [phone] Reason for Visit * Reason Comments Contraception Encounter Details Date Type Department Care Team ([facility] st Contact Info) Description 06/02/2017 15:30 EDT Nurse Only [facility] Pediatric Primary Care [facility] [address] [place], [place] [id number] Unknown, Provider, MD Lane, Jhony Sauceda MD 1 [facility] [address] [place] [address] Nurse, Proc [facility] Juan Carlos Rolle RN Encounter for surveillance of injectable contraceptive (Primary Dx) Social History Tobacco Use Types [...] Sign Reading Time Taken Comments Blood Pressure 110/70 06/02/2017 1459 EDT Pulse - - Temperature - - Respiratory Rate - - Oxygen Saturation - - Inhaled Oxygen Concentration - - Weight 60.3 kg (133 lb) 06/02/2017 1459 EDT Height - - Body Mass Index 21.15 04/15/2017 0829 EDT documented in this encounter Functional Status [...] documented in this encounter Progress Notes * Gianni Moralez, RN - 06/02/2017 1530 EDT Patient here for Depo vaccine. Last depo 03/16. Due 06/01-06/15/17. If given next due 08/18-09/01 Date of last Depo: 03/16 # of weeks since last injection: <13 Patient reports the following concerns since last office visit: None First time injection / or if greater than 13 weeks since last injection a urine test willbe done. If done the result is: not tested. Symptoms listed above were discussed with the following provider: n/a. HCG Urine test not done. If DONE result is: not tested. Date of next Depo injection due: 08/18/17 -09/01/2017 Reviewed signs and symptoms that warrant a telephone call or office visit: yes Depo injection site: upper arm, Lot #: [id number] Relevant patient education relating to this was discussed: Yes. Patient Education Topic: Depo Method: Verbal Taught to: Patient Barriers: None Outcomes: verbalized understanding Signature: Gianni Moralez RN I was supervised by who was present and immediately available in the office suite. Gianni Moralez RN 06/02/2017 15:08 documented in this encounter Plan of Treatment Not on file documented as of this encounter Visit Diagnoses Diagnosis Encounter for surveillance of injectable contraceptive- Primary Surveillance of other previously prescribed contraceptive method documented in this encounter Administered Medications Inactive Administered Medications - up to 3 most recent administrations Medication Order MAR Action Action Date Dose Rate Site medroxyPROGESTERone (DEPO-PROVERA) injection 150 mg 150 mg, intramuscular, EVERY 3 MONTHS, 4 doses, First dose on Wed03/16/17 at 1500, Last dose on Wed12/14/17 at 1500, Routine Given 08/20/2017 9:16 EST 150 mg Right D eltoid Given 06/02/2017 15:06 EDT 150 mg Given 03/16/2017 16:09 EDT 150 mg Left Deltoid documented in this encounter Care Teams Manager Health Relationship Specialty Start Date End Date Sofy Nicolas MD 1 [facility] [address] [place] [address] PCP - General 06/27/15 documented as of this encounter
--- OUTSIDE RECORDS SUMMARY | 2024-08-21 14:08 | XMS_ITS | Encounter Summary ---
Author Organization [facility] Address [address] [place] [address] Care Team Providers Care Electrical Panel Builder Name Role Phone Sofy Nicolas MD Primary Care Provider [phone] [phone] Reason for Visit * Reason Onset Date Comments Prior Auth, Other (i.e. radiology, etc.) 018 Prior Auth, Medication 03/15/2018 Encounter Details Date Type Department Care Team (Late st Contact Info) Description 03/14/2018 Telephone [facility] Rheumatology & Immunology - [address] [address] Juve Pond Chi, MD [address] [place] [address], [address] [place] [address] Prior Auth, Other (i.e. radiology, etc.); Prior Auth, Medication Social History Tobacco Use [...] encounter Miscellaneous Notes * Telephone Encounter - Key Lagos - 04/08/2018 1527 EDT Received call from Soha. She stated that patient contacted her and has insurance again. She has [employer]. I submitted request to [employer]. Received a phone call back stating that previous prior auth was active 18--01.27.19 after reinstatement of policy. I called Soha and left a voice mail for her And also faxed info to Betzaida at [facility] so she can schedule the patient for her infusion. * Telephone Encounter - Key Lagos - 04/01/2018 1532 EDT Still have not heard from patient with insurance information. Per [place] web site, patient still inactive. * Telephone Encounter - Key Lagos - 03/21/2018 1530 EDT Tried calling patient again, went to [facility] mail. Called Soha and she will have infusion appt cancelled. Update: After I talked to Soha, patient did call me back within a few minutes. She stated she sentin her papers to [place] Medicaid for reinstatement. I gave her the phone number to call as I checked their web site and she is still inactive. She will call them and call me back to let me know. I gave Soha the info. As of today, there will not be enough time to get an approval by 03/31, so they will [facility] . * Telephone Encounter - Key Lagos - 03/15/2018 1558 EDT Spoke with Soha. Both insurances we have for patient have terminated. I have called patient's number and left a voice mail for her to call us back with current insurance information. Please get nameof insurance, member ID number, and phone number. Also tried to call her father as her emergency contact, but the number we have in chart is disconnected. * Telephone Encounter - Yanelis Blandon - 03/15/2018 1529 EDT Soha calling to speak to Key Lagos regarding Prior Auth Please call * Telephone Encounter - Niki Power - 03/14/2018 0859 EDT Reason for Call: Prior Auth, Other (i.e. radiology, etc.) Summary/Symptoms: Soha, at [facility] is calling about the P.A. For patients RemicaidInfusions. Patient gets them done at PCP during the summer. Please call Soha. Niki Power 03/14/2018 8:59 documented in this encounter Plan of Treatment Not on file documented as of this encounter Visit Diagnoses Not on filedocumented in this encounter Care Teams Electrical Panel Builder Relationship Specialty Start Date End Date Sofy Nicolas MD 1 [facility] 3 [place] [phone] PCP - General 06/27/15 documented as of this encounter
--- OUTSIDE RECORDS SUMMARY | 2024-08-21 14:08 | XMS_ITS | Encounter Summary ---
Author Organization [facility] Address [address] [place] [address] Care Team Providers Care Senior Commercial Loan Officer Name Role Phone Sofy Nicolas MD Primary Care Provider [phone] [phone] Encounter Details Date Type Department Care Team (Latest Contact Info) Description 04/29/2017 14:11 EDT - 04/29/2017 14:12 EDT Hospital Encounter [place] [id number] [place] [address] Obdulia Butt, IRRIGATING PUMP OPERATOR [address] [place] [phone] Discharge Disposition: Home or Self Care [...] documented in this encounter Discharge Diagnoses Diagnosis L73.9 Follicular disorder, unspecified-L73.9[ICD-10-CM] documented in this encounter Medications at Time of Discharge chlorhexidine (HIBICLENS) 4 % liquid Apply topically daily 960 mL 11 06/18/2015 inFLIXimab (REMICADE) 100 mg injection Inject 300 mg into the vein every 8 weeks medroxyPROGESTER one (DEPO-PROVERA) 150 mg/mL injection Inject 1 mL into the muscle every 12 weeks. 1 mL 12/28/2016 TACROLIMUS (PROTOPIC TOP) Apply topically as needed. 8 documented as of this encounter Discharge Disposition Disposition Code Departure Means Destination Home or Self Care documented in this encounter Plan of Treatment Not on file documented as of this encounter Visit Diagnoses Not on filedocumented in this encounter Care Teams Senior Commercial Loan Officer Relationship Specialty Start Date End Date Sofy Nicolas MD 1 [facility] Level [address] [place] [address] PCP - General 06/27/15 documented as of this encounter
--- OUTSIDE RECORDS SUMMARY | 2024-08-21 14:08 | XMS_ITS | Encounter Summary ---
Author Organization [facility] Address [address] [place] [address] Care Team Providers Care Plastic Fabricator Name Role Phone Sofy Nicolas MD Primary Care Provider [phone] [phone] Reason for Visit * Reason Onset Date Comments Appointment Related 07/30/2017 Encounter Details Date Type Department Care Team ([facility] st Contact Info) Description 07/30/2017 Telephone [facility] Dermatology 3rd Floor [address] [phone] Rose Sahu MD PhD [address] [place] [address], [address] [place] [address] Appointment Related Social History Tobacco Use Types [...] encounter Miscellaneous Notes * Telephone Encounter - Dolores Keane - 07/30/2017 1120 EST Left a message for patient stating they have been scheduled for a follow up on 08/02/2017 at 10:00am. I have asked that the patient call to confirm or reschedule this appointment. Dolores Keane 07/30/2017 11:21 documented in this encounter Plan of Treatment Not on file documented as of this encounter Visit Diagnoses Not on filedocumented in this encounter Care Teams Plastic Fabricator Relationship Specialty Start Date End Date Sofy Nicolas MD 1 [facility] [address] [place] [address] PCP - General 06/27/15 documented as of this encounter
--- OUTSIDE RECORDS SUMMARY | 2024-08-21 14:08 | XMS_ITS | Encounter Summary ---
Author Organization [facility] Address [address] [place] [address] Care Team Providers Care Slate Worker Name Role Phone Sofy Nicolas MD Primary Care Provider [phone] Encounter Details Date Type Department Care Team ([facility] st Contact Info) Description 06/22/2017 Results Only [facility] [phone] Obdulia Butt, FLOOR COVERING PRINTER [address] [place] [phone] Social History Tobacco Use Types Packs/Day [...] Date/Time Associated Diagnosis Comments BACTERIAL CULTURE/SMEAR Routine 06/22/2017 12:35 EDT documented in this encounter Results * BACTERIAL CULTURE/SMEAR, OTHER (06/22/2017 12:35 EDT) Gram Smear Result Mod Polys 06/22/2017 22:02 EDT [facility] Gram Smear Result No bacteria seen 06/22/2017 22:02 EDT [facility] Result No growth 06/24/2017 9:18 EDT [facility] ABSCESS MORPHOLOGY / Unknown 06/22/2017 12:35 EDT 06/22/2017 19:03 EDT Comment:Specimen submitted o n a flocked swab. us Obdulia Butt FLOOR COVERING PRINTER MICROBIOLOGY - GENERAL LIBERTAD TERAN Final Result [facility] [address] [place] [address] documented in this encounter Visit Diagnoses Not on filedocumented in this encounter Care Teams Slate Worker Relationship Specialty Start Date End Date Sofy Nicolas MD 1 [facility] Level [address] [place] [address] PCP - General 06/27/15 documented as of this encounter
--- OUTSIDE RECORDS SUMMARY | 2024-08-21 14:08 | XMS_ITS | Encounter Summary ---
Author Organization [facility] Address [address] [place] [address] Care Team Providers Care Nursing Program Chair Name Role Phone Sofy Nicolas MD Primary Care Provider [phone] [phone] Reason for Visit * Reason Comments Follow-up Rash in right axilla Encounter Details Date Type Department Care Team ([facility] st Contact Info) Description 10/25/2017 15:40 EST Office Visit [facility] Dermatology [address]rd [address] [address] Rose Sahu MD PhD [address] [place] [address], [facility] [address] [place] [address] Rash of unknown cause (Primary Dx) Discharge Disposition: Auto Discharge Social History Tobacco Use Types Packs/Day Years [...] 07/07/2017 12:16 EST documented in this encounter Discharge Diagnoses Diagnosis R21 Rash and other nonspecific skin eruption-R21[ICD-10-CM] documented in this encounter Ordered Prescriptions Prescription Sig Dispense Quantity Refills Last Filled Start Date End Date doxycycline (VIBRA-TABS) 100 mg tablet Take 1 Tab by mouth 2 times daily. May cause upset stomach or photosensitiv ity. 28 Tab 10/25/2017 8 documented in this encounter Discharge Disposition Disposition Code Departure Means Destination Auto Discharge documented in this encounter Progress Notes * Dolores Keane - 10/25/2017 1540 EST Review of Systems Constitutional: Negative for fatigue, fever and unexpected weight change. HENT: Positive for mouth sores. Eyes: Negative for pain. Respiratory: Negative for cough and shortness of breath. Cardiovascular: Negative for chest pain and palpitations. Gastrointestinal: Negative for abdominal pain, blood in stool, constipation, diarrhea, nausea and vomiting. Genitourinary: Negative for dysuria, frequency and hematuria. Musculoskeletal: Negative for myalgias, joint swelling, arthralgias and muscle stiffness in the morning. Skin: Positive for rash. Neurological: Negative for numbness and headaches. Endo/Heme/Allergies: Does not bruise/bleed easily. Psychiatric/Behavioral: Negative for sleep disturbance. The patient is not nervous/anxious. Dolores Keane 10/25/2017 15:31 * Bernadine Saldaña MD - 10/25/2017 1540 EST Images from the original note were not included. Dermatology Outpatient Visit Note Chief Complaint Patient presents with ??? Follow-up Rash in right axilla Dermatologic History: 1. 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 Recurrent abscesses Last Dermatology office visit: 06/2017 SUBJECTIVE Ms. Bearden is a 22 y.o. female who presents for new evaluation and treatment for rash in the right axilla. It started 1 week ago as one pustule, and has rapidly spread to the rest of the right axilla with more pustules, pain, and redness. She was using Secret deodorant since July but stopped when this rash appeared. The rash does not itch, but is painful. Denies fevers, chills, or feeling unwell. Denies other similar rashes. She has one red spot on the right abdomen that started around the same time, but this lesion is not painful or spreading. She is otherwise feeling well and has no other cutaneous concerns today. She denies any other new, changing, bleeding, tender, or non-h ealing skin lesions today. For full Medical, Surgical, Family, and Social histories, please see the History section of this encounter in the electronic chart which I have personally reviewed. For Review of Systems, Medications and Allergies, please see those sections of this encounter in the electronic chart which I have also reviewed. She has a current medication list which includes the following prescription(s): chlorhexidine, infliximab, and medroxyprogesterone, and the following Facility- Administered Medications: medroxyprogesterone. She is allergic to ciprofloxacin; clindamycin; and penicillins. OBJECTIVE VS: There were no vitals taken for this visit. Ms. Bearden is healthy, well developed, well-nourished and in no acute distress female sitting on the examination table with a normal affect. She is alert and oriented to person, place and time. She has Edmond type II skin. Cutaneous exam including the hair, scalp, face, eyelids, lips, neck, chest, back, abdomen, buttocks, upper extremities, hands, digits and nails was performed.The examination was normal with the addition of the following comments: -in the right axilla are multiple erythematous inflammatory papules and pustules at the periphery of an erythematous plaque with central hyperkeratotic yellow scale. There is no active drainage from the lesion. The left axilla is clear from any involvement. -on the right abdomen is a single erythematous 2 mm papule -the buttocks are clear from active lesions today. There is a 3 cm oval scar on the left inferomedial buttock. ASSESSMENT/PLAN 1. Rash, right axilla - Differential is likely infectious for this unilateral inflammatory rash: staph aureus vs candidiasis vs other - Bacterial and fungal cultures collected today from multiple pustules in the right axilla. - Rx doxycycline 100 mg BID for 2 weeks as prophylaxis for bacterial infection. Will plan to modifymediation with return of culture results. - Discussed limiting irritants to the area including deodorants or lotions until resolution of the rash. She will f/u in 6 weeks or in the interim should problems arise. Bernadine Saldaña MD 10/25/2017 15:39 Attestation Statement: I saw and examined the patient with the resident/fellow. I agree with the findings and plan of care documented in the resident's/fellow's note. Rose Sahu MD Dermatology [facility] documented in this encounter Plan of Treatment Not on file documented as of this encounter Procedures Procedure Name Priority Date/Time Associated Diagnosis Comments FUNGAL CULTURE, SKIN, HAIR OR NAIL Routine 10/25/2017 15:49 EST Rash of unknown cause documented in this encounter Results * BACTERIAL CULTURE/SMEAR, OTHER (10/25/2017 15:49 EST) Gram Smear Result No polys seen 10/25/2017 20:27 [facility] Gram Smear Result Many Gram positive cocci 10/25/2017 20:27 [facility] Gram Smear Result Mod Gram positive bacilli 10/25/2017 20:27 [facility] Result Heavy STAPHYLOCOCC US AUREUS 10/27/2017 8:45 [facility] Result Mod Usual skin swathi 10/27/2017 8:45 [facility] Result Smear suggests minimal or no inflammation . 10/27/2017 8:45 [facility] Specimen of unknown material (specimen) SPECIMEN FROM SKIN / Unknown 10/25/2017 15:49 EST 10/25/2017 17:31 EST Comment:Specimen submitted o n a flocked swab. Narrative Organism Antibiotic Method Susceptibility Heavy staphylococcus aureus Susceptibility comment SUSCEPTIBILITY (ISMAEL) Heavy staphylococcus aureus Susceptibility comment SUSCEPTIBILITY (ISMAEL) Susceptible to nafcillin, cephalosporins and other beta lactam antibiotics (mecA gene product absent). Heavy staphylococcus aureus Oxacillin SUSCEPTIBILITY (ISMAEL) Susceptible Heavy staphylococcus aureus Cefazolin SUSCEPTIBILITY (ISMAEL) Susceptible Heavy staphylococcus aureus Vancomycin SUSCEPTIBILITY (ISMAEL) Susceptible Heavy staphylococcus aureus Erythromycin SUSCEPTIBILITY (ISMAEL) Resistant Heavy staphylococcus aureus Clindamycin SUSCEPTIBILITY (ISMAEL) Resistant Heavy staphylococcus aureus Ciprofloxacin SUSCEPTIBILITY (ISMAEL) Susceptible Heavy staphylococcus aureus Tetracycline SUSCEPTIBILITY (ISMAEL) Susceptible Heavy staphylococcus aureus Trimethoprim-Sulfamet hoxazole SUSCEPTIBILITY (ISMAEL) Susceptible Rose Sahu MD PhD MICROBIOLOGY - GENERAL OR DERABLES Final Result Performing Organization Address [facility] Co de Phone Number [facility] [address] [place] [address] * FUNGAL CULTURE, SKIN, HAIR OR NAIL (10/25/2017 15:49 EST) Result Swabs are acceptable for isolation of yeasts, but sub-optimal for isolating moulds. Scrapings, aspirates, and/or tissues are always superior specimens when ANY fungal pathogen is suspected. 11/02/2017 8:37 EST [facility] Result No fungi isolated 11/02/2017 8:37 EST [facility] Specimen of unknown material (specimen) SPECIMEN FROM SKIN / Unknown 10/25/2017 15:49 EST 10/25/2017 17:28 EST Comment:Specimen submitted o n a flocked swab. Rose Sahu MD PhD MICROBIOLOGY - GENERAL OR DERABLES Final Result Performing Organization Address [facility] Co de Phone Number [facility] [address] [place] [address] documented in this encounter Visit Diagnoses Diagnosis Rash of unknown cause- Primary documented in this encounter Care Teams Nursing Program Chair Relationship Specialty Start Date End Date Sofy Nicolas MD [address] [facility] [address] [place] [address] PCP - General 06/27/15 documented as of this encounter
--- OUTSIDE RECORDS SUMMARY | 2024-08-21 14:08 | XMS_ITS | Encounter Summary ---
Author Organization [facility] Address [address] [place] [address] Care Team Providers Care Online Project Manager Name Role Phone Sofy Nicolas MD Primary Care Provider [phone] Reason for Visit * Reason Onset Date Comments Appointment Related 01/25/2018 Encounter Details Date Type Department Care Team ([facility] st Contact Info) Description 01/25/2018 Telephone [facility] Rheumatology & Immunology - [address] [id number] Juve Pond Chi, MD [address] [place] [address], [address] [place] [address] Appointment Related Social History Tobacco [...] encounter Miscellaneous Notes * Telephone Encounter - Rebeca Kern RN - 01/25/2018 1019 EDT Spoke with pt. She graduated and moved back to [place], [place]. Wants to keep coming here to see Dr. Pond every year but requesting that she get her Remicade infusions closer to home. She has been getting them every 8-10 weeks for uveitis. I called [facility]. Per Leslee's request, I faxed over signed orders along with Dr. Pond's most recent progress note and info on PA obtained for her infusions. They will get her PCP to co-sign for her infusion. I let staff know that pt was due for her next infusion tomorrow. * Telephone Encounter - Patricia Koo - 01/25/2018 0949 EDT Reason for Call: Appointment Related Summary/Symptoms: Patient needs to cancel her appt for her infusion tomorrow because she moved and will be going elsewhere. Patient also needs to get an order so she can go elsewhere. Patricia Koo 01/25/2018 9:49 documented in this encounter Plan of Treatment Not on file documented as of this encounter Visit Diagnoses Not on filedocumented in this encounter Care Teams Online Project Manager Relationship Specialty Start Date End Date Sofy Nicolas MD 1 [facility] [address] [place] [phone] PCP - General 06/27/15 documented as of this encounter
--- OUTSIDE RECORDS SUMMARY | 2024-08-21 14:08 | XMS_ITS | Encounter Summary ---
Author Organization [facility] Address [address] [place] [address] Care Team Providers Care Egg Candler Name Role Phone Sofy Nicolas MD Primary Care Provider [phone] Reason for Visit * Reason Onset Date Comments Follow-up 01/27/2018 Encounter Details Date Type Department Care Team ([facility] Contact Info) Description 01/27/2018 Telephone [facility] Rheumatology & Immunology - [address] [id number] Juve Pond Chi, MD [address] [place] [address], [address] [place] [address] Follow-up Social History Tobacco Use Types Packs/Day Years [...] encounter Miscellaneous Notes * Telephone Encounter - Belkis Elder - 01/27/2018 1127 EDT Reason for Call: Follow-up Summary/Symptoms: Soha states she was speaking with [place]. She wanted to provide that Patient has another infusion scheduled 03/31/18 at [facility]. Belkis Elder 01/27/2018 11:27 documented in this encounter Plan of Treatment Not on file documented as of this encounter Visit Diagnoses Not on filedocumented in this encounter Care Teams Egg Candler Relationship Specialty Start Date End Date Sofy Nicolas MD 1 [facility] [address] [place] [address] PCP - General 06/27/15 documented as of this encounter
--- OUTSIDE RECORDS SUMMARY | 2024-08-21 14:08 | XMS_ITS | Encounter Summary ---
Author Organization [facility] Address [address] [place] [address] Care Team Providers Care Rooming House Inspector Name Role Phone Sofy Nicolas MD Primary Care Provider [phone] Reason for Referral * Medication Prior Authorization (48 Hrs (Urgent)) - Closed Specialty Diagnoses / Procedures [facility] Referred To Contact Diagnoses Uveitis Juve Pond Chi, MD Phone: tel: fax: Referral ID Status Reason Start Date Expiration Date Visits Requested Visits Authorized [id number] Closed Medication Prior Authorization 01/30/2019 02/01/2020 1 1 Question Answer Medication to be Prior Authorized: Renflexis 300mg every 10 weeks, insurance denied Remicade, infusion scheduled for 02/20 at [facility] Comments The purpose of this consult request is to inform the scheduling staff that a medication needs to be prior-authorized before it is prescribed and/or administered. Reason for Visit * Reason Onset Date Comments Prior Auth, Medication 01/30/2019 Renflexis at [facility] Encounter Details Date Type Department Care Team (Late st Contact Info) Description 01/30/2019 Orders [address] [facility] Rheumatology & Immunology - [address] [place] [address] [place] [address] Crystal Mai RN Uveitis (Primary Dx) Social History Tobacco Use Types [...] documented in this encounter Progress Notes * Crystal Mai RN - 01/30/2019 1059 EDT Insurance is denying Remicade, requested documentation of why pt cannot have biosimilar. Spoke with Pharmacy at [facility] who confirmed has Renflexis on formulary, needs at least one week advance notice to order specialty medication but more advance notice would be appreciated. Spoke with Dr. Pond who agreed to prior auth for Renflexis (Infliximab biosimilar). New prior auth submitted as urgent. Pt has infusion appt scheduled for 02/20 at [facility]. documented in this encounter Plan of Treatment Scheduled Referrals Name Type Priority Associated Diagnoses Order Schedule AMB MEDICATION PRIOR AUTHORIZATION Outpatient Referral Routine Uveitis Ordered: 01/30/2019 documented as of this encounter Visit Diagnoses Diagnosis Uveitis- Primary Unspecified iridocyclitis documented in this encounter Care Teams Rooming House Inspector Relationship Specialty Start Date End Date Sofy Nicolas MD 1 [facility] [address] [place] [address] PCP - General 06/27/15 documented as of this encounter
--- OUTSIDE RECORDS SUMMARY | 2024-08-21 14:08 | XMS_ITS | Encounter Summary ---
Author Organization [facility] Address [address] [place] [address] Care Team Providers Care Top Executive Name Role Phone Sofy Nicolas MD Primary Care Provider [phone] Reason for Visit * Reason Comments Follow-up recurrent furuncles requiring I & D * Consult (3 - 10 Business Days) - Specialty Report Received Specialty Diagnoses / Procedures Referred By Bhavana loyola Referred To Contact Dermatology Diagnoses Furuncle of buttock Juve Pond Chi, MD Phone: tel: fax: [facility] Dermatology [address]th [address] [address] Phone: tel: fax: Referral ID Status Reason Start Date Expiration Date Visits Requested Visits Authorized [id number] Specialty Report Received Specialty Services Required 7 1 1 Encounter Details Date Type Department Care Team (Late st Contact Info) Description 07/02/2017 14:00 EDT Office Visit [facility] Dermatology 3rd Floor [address] [address] Rose Sahu MD PhD [address] [place] [address], [address] [place] [phone] Abscess (Primary Dx); Scar Social History Tobacco Use Types Packs/Day Years [...] 04/30/2016 8:01 EDT documented in this encounter Ordered Prescriptions Prescription Sig Dispense Quantity Refills Last Filled Start Date End Date doxycycline (VIBRA-TABS) 100 mg tablet Take 1 Tab by mouth 2 times daily. May cause upset stomach or photosensitiv ity. 60 Tab 3 07/02/2017 8 documented in this encounter Progress Notes * Dolores Keane - 07/02/2017 1400 EDT Review of Systems Constitutional: Negative for fatigue, fever and unexpected weight change. HENT: Negative for mouth sores. Eyes: Negative for pain. Respiratory: Negative for cough and shortness of breath. Cardiovascular: Negative for chest pain and palpitations. Gastrointestinal: Negative for abdominal pain, blood in stool, constipation, diarrhea, nausea and vomiting. Genitourinary: Negative for dysuria, frequency and hematuria. Musculoskeletal: Negative for myalgias, joint swelling, arthralgias and muscle stiffness in the morning. Skin: Negative for rash. Neurological: Negative for numbness and headaches. Endo/Heme/Allergies: Does not bruise/bleed easily. Psychiatric/Behavioral: Negative for sleep disturbance. The patient is not nervous/anxious. Dolores Keane 07/02/2017 13:23 * Rose Sahu MD - 07/02/2017 1400 EDT Dermatology Outpatient Visit Note Chief Complaint Patient presents with ??? Follow-up recurrent furuncles requiring I & D Dermatologic History: 1. 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 Recurrent abscesses Last Dermatology office visit: 09/16/15 SUBJECTIVE Ms. Bearden is a 22 y.o. female who presents for follow up for a recurrence of an abscess of the right buttocks and groin. Of note, the patient originally thought her abscesses were psoriasis and self-diagnosed this. Removed from her medical record today). She was treated with doxycycline in 2014 with resolution until several months ago when she has a minor dental surgical procedure for a mucocele afterwhich point her right buttock abscess recurred with associated pain. She was put on Keflex and cultured. She grew few MSSA and most recently had an I&D with no growth on culture. For full Medical, Surgical, Family, and Social histories, please see the History section of this encounter in the electronic chart which I have personally reviewed. For Review of Systems, Medications and Allergies, please see those sections of this encounter in the electronic chart which I have also reviewed. She has a current medication list which includes the following prescription(s): chlorhexidine, doxycycline, infliximab, medroxyprogesterone, mupirocin, and tacrolimus, and the following Facility-Administered Medications: medroxyprogesterone. She is allergic to ciprofloxacin; clindamycin; and penicillins. OBJECTIVE VS: There were no vitals taken for this visit. Ms. Bearden is healthy female sitting on the examination table with a normal affect. She is alert and oriented to person, place and time. She has Edmond type II skin. Cutaneous focused exam of the buttocks and groin was performed.The examination was normal with the addition of the following comments: There were no lesions suspicious for malignancy. 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 Will restart doxy since she responded so well this in the past but discussed possibility that this may represent a chronic process. Will re-evaluate to ensure adequate response in 4 weeks. - start doxycycline (VIBRA-TABS) 100 mg tablet; Take 1 Tab by mouth 2 times daily. May cause upset stomach or photosensitivity. Return in about 4 weeks (around 07/30/2017) for abscess. She will f/u as planned or in the interim should problems arise. Rose Sahu MD 07/02/2017 14:19 documented in this encounter Plan of Treatment Not on file documented as of this encounter Visit Diagnoses Diagnosis Abscess- Primary Cellulitis and abscess of unspecified site Scar Scar condition and fibrosis of skin documented in this encounter Discontinued Medications Medication Sig Discontinue Reason Start Date End Da te doxycycline (VIBRAMYCIN) 100 mg capsule Take 1 Cap by mouth 2 times daily for 7 days 06/06/2015 06/13/2015 documented as of this encounter Care Teams Top Executive Relationship Specialty Start Date End Date Sfoy Nicolas MD 1 [facility] [address] [place] [address] PCP - General 06/27/15 documented as of this encounter
--- OUTSIDE RECORDS SUMMARY | 2024-08-21 14:08 | XMS_ITS | Encounter Summary ---
Author Organization [facility] Address [address] [place] [address] Care Team Providers Care Heel Compressor Name Role Phone Sofy Nicolas MD Primary Care Provider [phone] [phone] Reason for Visit * Reason Comments Clinic Admin Medications Here for Remica de 300 mg q 10 wks for psoriasis. Today happens to be at 12 weeks as pt had developed a boil, low on her right buttocks a couple weeks ago (06/22) so she had to cancel her infusion. Her most recent culture was negative. No open areas Encounter Details Date Type Department Care Team (Latest Contact Info) Description 07/07/2017 12:30 EST Office Visit [facility] Rheumatology & Immunology - [facility] [address] [place] [address] Unknown, Provider, Gadiel Griffin MD [address] [address] Assoc, [facility] Uveitis (Primary Dx) Social History Tobacco Use [...] Sign Reading Time Taken Comments Blood Pressure 107/66 07/07/2017 1524 EST Pulse 58 07/07/2017 1524 EST Temperature 36.6 ??C (97.8 ??F) 07/07/2017 1524 EST Respiratory Rate 18 07/07/2017 1215 EST Oxygen Saturation - - Inhaled Oxygen Concentration - - Weight 59.4 kg (131 lb) 07/07/2017 1215 EST Height 168.7 cm (5' 6.4) 07/07/2017 1215 EST Body Mass Index 20.89 07/07/2017 1215 EST documented in this encounter [...] documented in this encounter Discharge Diagnoses Diagnosis H20.9 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 Please review the medication information provided to you. If you experience any signs or symptoms of infection or are concerned that you may be experiencing side effects to your medication please contact your physician for instructions. If you are planning an elective procedure please contact your physician at least one month prior toyour procedure for possible changes to your medication treatment plan. For additional information or any concerns, regarding your disease or medication therapy, please call our office at [phone] or toll free at ; Ext [phone]. For additional educational information on arthritis you may go to the [employer] as a resource. The web link is www.arthritis.org. documented in this encounter Progress Notes * Mason Kern RN - 07/07/2017 1230 EST Biologic Infusion Therapy Infliximab (Remicade) Patient???s last infusion was tolerated well. Patient is free of signs and symptoms of infection. No recent or upcoming surgery scheduled. Premedication administered? Yes Acetaminophen 325 mg PO See Facility Administered Medication History for pre-med and infusion documentation. Blood Drawn: Yes, CMP and CBCD Patient EducationTopic: [facility] appointments made for every 10 weeks, labs reviewed Method: Verbal Taught to: Patient Barriers: None Outcomes: independent Today's infusion was tolerated well by the patient. Dose Administered: 300 mg Post infusion instruction provided to patient. Patient to call office for any adverse effects. I was supervised by Dr. Gadiel Fragoso who was present and immediately available in the office suite. MASON KERN RN 07/07/2017 16:21 documented in this encounter Plan of Treatment Not on file documented as of this encounter Procedures Procedure Name Priority Date/Time Associated Diagnosis Comments COMPLETE BLOOD COUNT AND DIFFERENTIAL Routine 07/07/2017 12:30 EST Uveitis COMPREHENSIVE METABOLIC PANEL (CMP) Routine 07/07/2017 12:30 EST Uveitis documented in this encounter Results * (ABNORMAL) COMPREHENSIVE METABOLIC PANEL (CMP) (07/07/2017 12:30 EST) Potassium 4.3 3.5 - 5.0 mEq/L 07/07/2017 15:07 [facility] Sodium 141 136 - 145 mEq/L 07/07/2017 15:07 [facility] Chloride 102 96 - 110 mEq/L 07/07/2017 15:07 [facility] CO2 23 22 - 32 mEq/L 07/07/2017 15:07 [facility] Total Alkaline Phosphatase 67 38 - 126 U/L 07/07/2017 15:07 [facility] Bilirubin, Total 0.7 <1.4 mg/dl 07/07/20 17 15:07 [facility] AST 29 15 - 46 U/L 07/07/2017 15:07 [facility] ALT 26 <53 U/L 07/07/2017 15:07 [facility] Albumin 5.1(H) 3.4 - 4.9 g/dl 07/07/2017 15:07 [facility] Total Protein 8.8(H) 6.3 - 8.2 g/dl 07/07/2017 15:07 [facility] Creatinine 0.55 0.52 - 1.04 mg/dl 07/07/2017 15:07 [facility] GFR, Calculated 135 >60 ml/min/1.7 3m2 07/07/2017 15:07 [facility] Comment: eGFR calculated using CKD-EPI equation for non Americans. Multiply eGFR by 1.16 for Americans. BUN 9(L) 10 - 26 mg/dl 07/07/2017 15:07 [facility] Calcium 10.0 8.5 - 10.5 mg/dl 07/07/2017 15:07 [facility] Calculated Calcium 9.1 8.5 - 10.5 mg/dl 07/07/2017 15:07 [facility] Glucose, Serum 95 70 - 100 mg/dl 07/07/2017 15:07 [facility] Fasting? Unknown 07/07/2017 14:04 [facility] Blood specimen (specimen) BLOOD SPECIMEN / Unknown 07/07/2017 12:30 EST 07/07/2017 14:03 EST us Juve Pond MD CHEMISTRY & BLOOD GAS ORDERABLES Final Result [facility] [address] [place] [address] * HEMAGRAM AND DIFFERENTIAL (07/07/2017 12:30 EST) WBC 8.25 4.0 - 12.4 K/cmm 07/07/2017 14:20 [facility] RBC 4.32 3.86 - 5.04 M/cmm 07/07/2017 14:20 [facility] Hemoglobin 12.9 11.6 - 15.2 gm/dl 07/07/2017 14:20 [facility] HCT 38.1 34.9 - 44.4 % 07/07/2017 14:20 [facility] MCV 88 81 - 98 fl 07/07/2017 14:20 [facility] MCH 29.9 26.7 - 33.3 pg 07/07/2017 14:20 [facility] MCHC 33.9 32.1 - 35.9 gm/dl 07/07/2017 14:20 [facility] RDW-CV 11.9 <14.7 % 07/07/2017 14:20 [facility] RDW-SD 38.6 <50.4 fl 07/07/2017 14:20 [facility] PLT 372 141 - 377 K/cmm 07/07/2017 14:20 [facility] MPV 10.1 9.5 - 12.7 fl 07/07/2017 14:20 [facility] % Neutrophils 53.0 % 07/07/2017 14:20 [facility] % Lymphocytes 39.0 % 07/07/2017 14:20 [facility] % Monocytes 6.3 % 07/07/2017 14:20 [facility] % Eosinophils 1.0 % 07/07/2017 14:20 [facility] % Basophils 0.5 % 07/07/2017 14:20 [facility] % Immature Grans 0.2 % 07/07/2017 14:20 [facility] ABS Neutrophils 4.37 2.20 - 8.85 K/cmm 07/07/2017 14:20 [facility] ABS Lymphs 3.22 1.09 - 3.30 K/cmm 07/07/2017 14:20 [facility] ABS Monocytes 0.52 0.1 - 0.8 K/cmm 07/07/2017 14:20 [facility] ABS Eosinophils 0.08 0.03 - 0.61 K/cmm 07/07/2017 14:20 [facility] ABS Basophils 0.04 0.01 - 0.11 K/cmm 07/07/2017 14:20 EST [facility] ABS Immature Grans 0.02 0 - 0.06 K/cmm 07/07/2017 14:20 EST [facility] Type of Diff: Automated 07/07/2017 14:20 EST [facility] Blood specimen (specimen) BLOOD SPECIMEN / Unknown 07/07/2017 12:30 EST 07/07/2017 14:03 EST us Juve Pond MD PACKAGES & DNA PROBE ORDERABLES Final Result [facility] [address] [place] [address] documented in this encounter Visit Diagnoses Diagnosis Uveitis- Primary Unspecified iridocyclitis documented in this encounter Administered Medications Inactive Administered Medications - up to 3 most recent administrations Medication Order MAR Action Action Date Dose Rate Site acetaminophen (TYLENOL) tablet 325 mg 325 mg, oral, Once (Without Time Specified), 1 dose, Starting on Wed07/07/17 at 1300, Until Wed07/07/17 at 1245, RoutineIndications:Uveitis Given 07/07/2017 12:45 EST 325 mg inFLIXimab (REMICADE) 300 mg in sodium chloride (NS) 0.9 % 250 mL IVPB 300 mg, intravenous, Administer over 120 Minutes, Once (Without Time Specified), 1 dose, Starting on Wed07/07/17 at 1300, Until Wed07/07/17 at 1530, STATIndications:Uveitis New Bag 07/07/2017 13:30 EST 300 mg 153 mL/hr sodium chloride 0.9 % (NS) infusion at 25 mL/hr, intravenous, CONTINUOUS, Starting on Wed07/07/17 at 1300, Until Wed07/07/17 at 1836, RoutineIndications:Uveitis New Bag 07/07/2017 13:15 EST 25 mL/ hr documented in this encounter Orders Medications Ordered That Gus ht Not Have Been Administered Count Last Ordered Date First Ordered Date acetaminophen (TYLENOL) tablet 325-650 mg 1 07/07/2017 diphenhydrAMINE (BENADRYL) c apsule 25-50 mg 1 07/07/2017 diphenhydrAMINE (BENADRYL) i njection 25-50 mg 1 07/07/2017 methylPREDNISolone sod suc(P F) (SOLU-MEDROL) injection 50-100 mg 1 07/07/2017 Nursing Count Last Ordered Date First Orde red Date CARE ORDER/INSTRUCTION 1 07/07/2017 NURSING COMMUNICATION 1 07/07/2017 VITAL SIGNS 1 07/07/2017 VITAL SIGNS - NOTIFY 1 07/07/2017 documented in this encounter Care Teams Heel Compressor Relationship Specialty Start Date End Date Sofy Nicolas MD 1 [facility] [address] [place] [phone] PCP - General 06/27/15 documented as of this encounter
--- OUTSIDE RECORDS SUMMARY | 2024-08-21 14:08 | XMS_ITS | Encounter Summary ---
Author Organization [facility] Address [address] [place] [address] Care Team Providers Care Indirect Fire Infantryman Name Role Phone Sofy Nicolas MD Primary Care Provider [phone] Encounter Details Date Type Department Care Team ([facility] st Contact Info) Description 11/05/2017 Orders Only [facility] Dermatology 3rd Floor [address] [id number] Rose Sahu MD PhD [address] [facility], [address] [place] [address] Social History Tobacco Use Types [...] 07/07/2017 12:16 EST documented in this encounter Ordered Prescriptions Prescription Sig Dispense Quantity Refills Last Filled Start Date End Date doxycycline (VIBRA-TABS) 100 mg tablet Take 1 Tab by mouth 2 times daily for 14 days. May cause upset stomach or photosensitivit y. 28 Tab 11/05/2017 8 mupirocin (BACTROBAN) 2 % ointment Apply topically to affected area 2 times daily for 14 days. To rash on arm pit 22 g 3 11/05/2017 8 documented in this encounter Progress Notes * Rose Sahu MD - 11/05/2017 1635 EST Returned patient's call. She notes redness/rash is the same size and color but pustules have resolved. Was going to start keflex but patient has a pcn allergy and I could not reach her again to make sure it was not anaphylaxis. Will restart doxy 100mg PO BID Start mupirocin oint topically TID F/u on 11/[address] Sahu to make sure she is improving as expected. DDx: koebnorized psoriasis Rose Sahu MD 11/05/2017 16:43 documented in this encounter Plan of Treatment Not on file documented as of this encounter Visit Diagnoses Not on filedocumented in this encounter Discontinued Medications Medication Sig Discontinue Reason Start Date End Da te doxycycline (VIBRA-TABS) 100 mg tablet Take 1 Tab by mouth 2 times daily. May cause upset stomach or photosensitivity. Reorder 10/25/2017 11/05/2017 documented as of this encounter Care Teams Indirect Fire Infantryman Relationship Specialty Start Date End Date Sofy Nicolas MD 1 [facility] [address] [place] [address] PCP - General 06/27/15 documented as of this encounter
--- OUTSIDE RECORDS SUMMARY | 2024-08-21 14:08 | XMS_ITS | Encounter Summary ---
Author Organization [facility] Address [address] [place] [address] Care Team Providers Care Keg Washer Name Role Phone Sofy Nicolas MD Primary Care Provider [phone] Reason for Visit * Reason Onset Date Comments Provider Referred 06/23/2017 Juve Pond Chi, MD Encounter Details Date Type Department Care Team ([facility] st Contact Info) Description 06/23/2017 Telephone [facility] Dermatology 3rd Floor [address] [phone] Federico Puri MD Provider Referred (Juve Pond Chi, MD) Social History Tobacco Use Types Packs/Day Years [...] encounter Miscellaneous Notes * Telephone Encounter - Janet Naik - 07/01/2017 1225 EDT Scheduled 11.3.17 with Sahu * Telephone Encounter - Janet Naik - 06/23/2017 1521 EDT Per marketing planning manager; Please schedule FUR with any provider (preferably [facility]) in the next 3-10 days Referring Provider: Juve Pond Chi, MD Reason for referral: recurrent furuncles requiring I & D; had seen Dr Gaming in the past; needs to take Remicade to control Uveitis. need advice on prevention and treatment of recurrent skin abcesses documented in this encounter Plan of Treatment Not on file documented as of this encounter Visit Diagnoses Not on filedocumented in this encounter Care Teams Keg Washer Relationship Specialty Start Date End Date Sofy Nicolas MD 1 [facility] [address] [place] [address] PCP - General 06/27/15 documented as of this encounter
--- OUTSIDE RECORDS SUMMARY | 2024-08-21 14:08 | XMS_ITS | Encounter Summary ---
Author Organization [facility] Address [address] [place] [address] Care Team Providers Care Kids Club Attendant Name Role Phone Sofy Nicolas MD Primary Care Provider [phone] Reason for Visit * Reason Onset Date Comments Requesting Sooner Appointment 10/25/2017 Encounter Details Date Type Department Care Team ([facility] Contact Info) Description 10/25/2017 Telephone [facility] Dermatology 3rd Floor [address] [address] Rose Sahu MD PhD [address] [place] [address], [facility] [address] [place] [address] Requesting Sooner Appointment Social History Tobacco Use Types Packs/Day Years [...] * Telephone Encounter - Dolores Keane - 10/25/2017 0921 EST The patient is scheduled on 10/25/2017 at 3:40pm. Dolores Keane 10/25/2017 9:21 * Telephone Encounter - Santosh Good - 10/25/[address] Sahu on 07.02.17 for a staff infection. It has now returned and she needs to get in sooner than the January appointment I can offer. documented in this encounter Plan of Treatment Not on file documented as of this encounter Visit Diagnoses Not on filedocumented in this encounter Care Teams Kids Club Attendant Relationship Specialty Start Date End Date Sofy Nicolas MD 1 [facility] [address] [place] [phone] PCP - General 06/27/15 documented as of this encounter
--- OUTSIDE RECORDS SUMMARY | 2024-08-21 14:08 | XMS_ITS | Encounter Summary ---
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 VA stable. No pain. No flashes or floaters. Encounter Details Date Type Department Care Team (Late st Contact Info) Description 11/24/2017 14:30 EDT Office Visit [facility]hthal[facility] - [place] [id number] [place] [address] Komal Franklin MD [address] [facility], [address] [place] [address] Social History Tobacco Use Types [...] Progress Notes * Komal Franklin MD - 11/24/2017 1430 EDT Chief Complaint Patient presents with ??? 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 VA stable. No pain. No flashes or floaters. HPI The patient is a 22 y.o. female here for 5 day follow up IOP check. Vision is the same both eyes. No pain. No flashes. No floaters. Patient taking pred forte QID in the left eye, Patient has been using drops about two times a day. Patient has her next Remicade injection this Wednesday11/26/17. ROS Constitutional: NL ENT/Mouth NL Cardiovascular: NL Respiratory: NL Gastrointestinal: NL Genitourinary: NL Musculoskeletal: Joint Pain Integumentary: NL Neurologic: NL Psychiatric: NL Endocrine: Hematologic: Immunologic: Drug Allergy Loan Expeditor: Exposures: None Other: Attestation: Allergies include: Ciprofloxacin; Clindamycin; and Penicillins Patient Active Problem List Diagnosis ??? Uveitis ??? High risk medication use ??? Surveillance for Depo-Provera contraception ??? Depressed mood ??? Chronic back pain ??? Staph skin infection ??? Slow transit constipation Outpatient Prescriptions Marked as Taking for the 11/24/17 encounter (Office Visit) with Komal Franklin MD Medication Sig ??? chlorhexidine (HIBICLENS) 4 % liquid Apply topically daily ??? inFLIXimab (REMICADE) 100 mg injection Inject 300 mg into the vein every 8 weeks ??? medroxyPROGESTERone (DEPO-PROVERA) 150 mg/mL injection Inject 1 mL into the muscle every 12 weeks. ??? prednisoLONE (PRED FORTE) 1 % ophthalmic suspension Place 1 Drop into the left eye 4 times daily. Current Facility-Administered Medications for the 11/24/17 encounter (Office Visit) with Komal Franklin MD Medication ??? medroxyPROGESTERone (DEPO-PROVERA) injection 150 mg Base Eye Exam Visual Acuity (Snellen - Linear) Right Left Dist sc 20/20 20/25 -1 Tonometry (Applanation, 14:18) Right Left Pressure 14 14 Pupils APD Right None Left ? APD Neuro/Psych Oriented x3: Yes Mood/Affect: Normal Slit Lamp and Fundus Exam External Exam Right Left External Normal Normal Slit Lamp Exam Right Left Lids/Lashes Normal Normal Conjunctiva/Sclera White and quiet White and quiet Cornea Clear Clear Anterior Chamber Deep and quiet Rare cell Iris Round and reactive Round and reactive DIAGNOSTIC TESTS: IMPRESSION & PLAN: Encounter Diagnoses Name Primary? Uveitic glaucoma, left, indeterminate stage Yes ??? Uveitis 1. Uveitic glaucoma, left, indeterminate stage IOP fine today 2. Uveitis Managed on Remicade, but frequency of infusions is limited by skin infections. Now with rare cell. Continue pred forte BID until Remicade infusion on Wednesday, then decrease to daily for 5 days, then stop. Follow up in 1 month, sooner if any new symptoms. I have reviewed the patient's past medical, family, social and surgical history. I have also reviewed the patient's medications, allergies, and problem list. I performed my own HPI and have reviewed the tech's ROS as well. I personally completed this exam myself. Komal Franklin MD I am scribing for Dr Franklin while she personally performs the service Chantale ABBOTT The patient was instructed to call our office or go to emergency room if worse vision, worse symptoms, or new/other concerns arise. documented in this encounter Plan of Treatment Not on file documented as of this encounter Visit Diagnoses Diagnosis Uveitic glaucoma, left, indeterminate stage- Primary Uveitis Unspecified iridocyclitis documented in this encounter Eye Exam Visual Acuity (Snellen - Linear) Right eye Left eye Dist sc 20/20 20/25 -1 Tonometry (Applanation, 14:18) Right eye Left eye Pressure 14 14 Pupils APD Right eye None Left eye ? APD Neuro/Psych Oriented x3: Yes Mood/Affect: Normal External Exam Right eye Left eye External Normal Normal Slit Lamp Exam Right eye Left eye Lids/Lashes Normal Normal Conjunctiva/Sclera White and quiet White and ken et Cornea Clear Clear Anterior Chamber Deep and quiet Rare cell Iris Round and reactive Round and heidi ctive Care Teams Director Trust Relationship Specialty Start Date End Date Sofy Nicolas MD 1 [facility] [address] [place] [phone] PCP - General 06/27/15 documented as of this encounter
--- OUTSIDE RECORDS SUMMARY | 2024-08-21 14:08 | XMS_ITS | Encounter Summary ---
Author Organization [facility] Address [address] [place] [address] Care Team Providers Care Requisition Approver Name Role Phone Sofy Nicolas MD Primary Care Provider [phone] [phone] Reason for Visit * Reason Comments Infusion Remicade Q 10 weeks Encounter Details Date Type Department Care Team (Late st Contact Info) Description 09/17/2017 13:00 EST Office Visit [facility] Rheumatology & Immunology - [address] [phone] Unknown, Provider, Kera Keyes MD [address] [place] [address], [address] [place] [address] Assoc, Rheum Health Uveitis (Primary Dx) Discharge Disposition: Auto Discharge Social [...] Sign Reading Time Taken Comments Blood Pressure 114/69 09/17/2017 1553 EST Pulse 70 09/17/2017 1553 EST Temperature 36.7 ??C (98.1 ??F) 09/17/2017 1553 EST Respiratory Rate - - Oxygen Saturation - - Inhaled Oxygen Concentration - - Weight 61.2 kg (135 lb) 09/17/2017 1317 EST Height - - Body Mass Index 21.53 07/07/2017 1215 EST documented in this encounter [...] this encounter Patient Instructions * Patient Instructions* Nitza Golden RN - 09/17/2017 13:00 EST Infusion Therapy Visit Intravenous Biologic Medication [...] medication therapy, please call our office at [phone] or toll free at ; Ext [phone]. For additional educational information on arthritis you may go to the [employer] as a resource. The web link is www.arthritis.org. documented in this encounter Discharge Disposition Disposition Code Departure Means Destination Auto Discharge documented in this encounter Progress Notes * Nitza Golden RN - 09/17/2017 1300 EST Biologic Infusion Therapy Infliximab (Remicade) 300 mg Q 10 weeks Patient???s last infusion was tolerated well. Patient is free of signs and symptoms of infection. No recent or upcoming surgery scheduled. Patient had mucocele on lip removed last week. Healing well, no s/s infection, not on abx. Premedication administered? Yes 325 mg Tylenol PO See Facility Administered Medication History for pre-med and infusion documentation. Blood Drawn: No Patient EducationTopic: Risk of infection/lip wound Method: Verbal Taught to: Patient Barriers: None Outcomes: verbalized understanding Today's infusion was tolerated well by the patient. Dose Administered: 300 mg Post infusion instruction provided to patient. Patient to call office for any adverse effects. I was supervised by Dr. Robertson who was present and immediately available in the office suite. Nitza Golden RN 09/17/2017 13:44 documented in this encounter Plan of Treatment Not on file documented as of this encounter Visit Diagnoses Diagnosis Uveitis- Primary Unspecified iridocyclitis documented in this encounter Administered Medications Inactive Administered Medications - up to 3 most recent administrations Medication Order MAR Action Action Date Dose Rate Site acetaminophen (TYLENOL) tablet 325 mg 325 mg, oral, Once (Without Time Specified), 1 dose, Starting on Wed09/17/17 at 1345, Until Wed09/17/17 at 1326, RoutineIndications:Uveitis Given 09/17/2017 13:26 EST 325 mg inFLIXimab (REMICADE) 300 mg in sodium chloride (NS) 250 mL IVPB 300 mg, intravenous, Administer over 120 Minutes, Once (Without Time Specified), 1 dose, Starting on Wed09/17/17 at 1345, Until Wed09/17/17 at 1550, STATIndications:Uveitis New Bag 09/17/2017 14:00 EST 300 mg 153 mL/hr sodium chloride 0.9 % (NS) infusion at 25 mL/hr, intravenous, CONTINUOUS, Starting on Wed09/17/17 at 1345, Until Wed09/17/17 at 1816, RoutineIndications:Uveitis New Bag 09/17/2017 13:35 EST 25 mL/ hr documented in this encounter Discontinued Medications Medication Sig Discontinue Reason Start Date End Da te doxycycline (VIBRA-TABS) 100 mg tablet Take 1 Tab by mouth 2 times daily. May cause upset stomach or photosensitivity. Patient Stopped Taking 07/02/2017 09/17/2017 mupirocin (BACTROBAN) 2 % ointment Apply topically daily. Patient Stopped Taking 09/17/2017 TACROLIMUS (PROTOPIC TOP) Apply topically as needed. Patient Stopped Taking 09/17/2017 documented as of this encounter Orders Medications Ordered That Gus ht Not Have Been Administered Count Last Ordered Date First Ordered Date acetaminophen (TYLENOL) tablet 325-650 mg 1 09/17/2017 diphenhydrAMINE (BENADRYL) c apsule 25-50 mg 1 09/17/2017 diphenhydrAMINE (BENADRYL) i njection 25-50 mg 1 09/17/2017 methylPREDNISolone sodium WALLER CCINATE (SOLU-MEDROL) injection 50-100 mg 1 09/17/2017 Nursing Count Last Ordered Date First Orde red Date CARE ORDER/INSTRUCTION 1 09/17/2017 NURSING COMMUNICATION 1 09/17/2017 VITAL SIGNS 1 09/17/2017 VITAL SIGNS - NOTIFY 1 09/17/2017 documented in this encounter Care Teams Requisition Approver Relationship Specialty Start Date End Date Sofy Nicolas MD 1 [facility] [address] [place] [address] PCP - General 06/27/15 documented as of this encounter
--- OUTSIDE RECORDS SUMMARY | 2024-08-21 14:08 | XMS_ITS | Encounter Summary ---
Author Organization [facility] Address [address] [place] [address] Care Team Providers Care Matchbook Maker Name Role Phone Sofy Nicolas MD Primary Care Provider [phone] [phone] Encounter Details Date Type Department Care Team (Late st Contact Info) Description 09/09/2017 Results Only [facility] [phone] Johnson Edmond, [address] [place] [address] Social History Tobacco Use Types Packs/Day Years [...] Procedure Name Priority Date/Time Associated Diagnosis Comments SURGICAL PATHOLOGY Routine 09/09/2017 16 :43 EST documented in this encounter Results * SURGICAL PATHOLOGY (09/09/2017 16:43 EST) Pathology Report: SURGICAL PATHOLOGY REPORT Reports generated via electronic interface contain original data; however they are lacking the format of the original report. Caution should be taken when reading/interpret ing unformatted reports. Name: ? CORNEL BEARDEN ? Accession #: ? [id number] ? : ? 1995 (Age: 22) ??F ? Collect Date: ? 09/09/2017 ? Location: ? [facility] ? Receive Date: ? 09/09/2017 ? Provider: JOHNSON EDMOND DO Copy to: YANE VANG NP ? 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 See comment. Comment: ? The patient's family history of Sjorgen Syndrome is noted. The minor salivary gland tissue demonstrates scattered foci of predominantly plasmacytic inflammation, which is likely an inflammatory response related to the adjacent mucocele. The salivary tissue lacks fibrosis or atrophy and prominent foci of lymphoid inflammation are not seen. Document reviewed and electronically signed by: ANTHONY VELA MD Report ??Date: 09/14/2017 16:38 By the signature above, the attending physician certifies that he/she has personally conducted a gross and/or microscopic examination of the described specimens and rendered or confirmed the above diagnosis. 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 Received in formalin labelled with proper patient identification (initials B, R) and lower lip lesion is an unoriented, irregularly shaped excision of loyd-sow skin and soft tissue (0.8 x 0.4 cm and is excised to a depth of 0.6 cm). Also received in the specimen container is a sow, soft tissue fragment (0.4 x 0.2 x 0.2 cm). The skin surface is received entirely inked blue. The presumed margins are entirely inked black. The specimen is trisected and entirely submitted as follows: Block bhat 1- ??tips, reverse en face ?? 2- ??one central section 3- ??soft tissue fragment Dr. Wyman 09/10/2017 2:19 PM End of Report [facility] 09/09/2017 16:4 3 EST 09/09/2017 16:43 EST us Johnson Edmond DO PATHOLOGY ORDERABLES Fi nal Result [facility] [address] [place] [address] documented in this encounter Visit Diagnoses Not on filedocumented in this encounter Care Teams Matchbook Maker Relationship Specialty Start Date End Date Sofy Nicolas MD 1 [facility] [address] [place] [address] PCP - General 06/27/15 documented as of this encounter
--- OUTSIDE RECORDS SUMMARY | 2024-08-21 14:08 | XMS_ITS | Encounter Summary ---
Author Organization [facility] Address [address] [place] [address] Care Team Providers Care Custom Shoe Designer And Maker Name Role Phone Sofy Nicolas MD Primary Care Provider [phone] [phone] Reason for Visit * Reason Comments Medication Management Remicade 300mg liliya ry 10 weeks. Follow-up 3 month follow up fo r Uveitic Glaucoma left eye. Vision has been stable, no eye pain. Encounter Details Date Type Department Care Team (Late st Contact Info) Description 11/19/2017 8:00 EDT Office Visit [facility] Ophthalmology - [id number] [place] [address] Komal Franklin MD [address] [facility], [facility] [address] [place] [phone] Social History Tobacco Use Types Packs/Day Years [...] Refills Last Filled Start Date End Date prednisoLONE (PRED FORTE) 1 % ophthalmic suspension Place 1 Drop into the left eye 4 times daily. 1 Bottle 11/19/2017 01/09/2019 documented in this encounter Progress Notes * Komal Franklin MD - 11/19/2017 0800 EDT Chief Complaint Patient presents with ??? Medication Management Remicade 300mg every 10 weeks. ??? Follow-up 3 month follow up for Uveitic Glaucoma left eye. Vision has been stable, no eye pain. HPI The patient is a 22 y.o. female here for 3 month follow up for Uveitic Glaucoma in the left eye. Noeye pain or photophobia. Taking Remicade 300mg every 10 weeks since this past fall. No joint pain. Staff A infection x 3 times treated with antibiotics. ROS Constitutional: NL ENT/Mouth NL Cardiovascular: NL Respiratory: NL Gastrointestinal: NL Genitourinary: NL Musculoskeletal: Joint Pain Integumentary: (Psoriasis) Neurologic: NL Psychiatric: NL Endocrine: NL Hematologic: NL Immunologic: Drug Allergy Deputy Court: Exposures: None Other: Attestation: Allergies include: Ciprofloxacin; Clindamycin; and Penicillins Patient Active Problem List Diagnosis ??? Uveitis ??? High risk medication use ??? Surveillance for Depo-Provera contraception ??? Depressed mood ??? Chronic back pain ??? Staph skin infection ??? Slow transit constipation Outpatient Prescriptions Marked as Taking for the 11/19/17 encounter (Office Visit) with Komal Franklin MD Medication Sig ??? chlorhexidine (HIBICLENS) 4 % liquid Apply topically daily ??? inFLIXimab (REMICADE) 100 mg injection Inject 300 mg into the vein every 8 weeks ??? medroxyPROGESTERone (DEPO-PROVERA) 150 mg/mL injection Inject 1 mL into the muscle every 12 weeks. Current Facility-Administered Medications for the 11/19/17 encounter (Office Visit) with Komal Franklin MD Medication ??? medroxyPROGESTERone (DEPO-PROVERA) injection 150 mg Base Eye Exam Visual Acuity (Snellen - Linear) Right Left Dist sc 20/20 20/25 +1 Tonometry (Applanation, 8:18) Right Left Pressure 15 17 Pupils Dark Light React APD Right 5 3 Brisk None Left 4 3 Slow None Visual Ibrahim Right Left Result Full Full Extraocular Movement Right Left Result Full Full Neuro/Psych Oriented x3: Yes Mood/Affect: Normal Slit Lamp and Fundus Exam External Exam Right Left External Normal Normal Slit Lamp Exam Right Left Lids/Lashes Normal Normal Conjunctiva/Sclera White and quiet White and quiet Cornea Clear Clear Anterior Chamber Deep and quiet Trace Cell Iris Normal Normal Lens Open posterior capsule Posterior chamber intraocular lens Fundus Exam Right Left Disc Normal scleral crescent C/D Ratio 0.4 0.8 IMPRESSION & PLAN: Encounter Diagnoses Name Primary? Uveitic glaucoma, left, indeterminate stage Yes ??? Uveitis 1. Uveitic glaucoma, left, indeterminate stage IOP is ok today. She may have had steroid response in the past so will monitor IOP carefully while on drops. 2. Uveitis She is now at Remicade infusions every 10 weeks (now out 9 weeks from her last infusion) and she has trace cell in the anterior chamber in the left eye. Will start on pred forte QID in the left eye and check iop next week. Will let Dr. Pond know. Would not space the infusions out any further than they are currently. I am scribing for Komal Franklin MD, while she is personally performing the service. Roma Nolan, SCAR, 11/19/2017 8:33 I have reviewed the patient's past medical, [...] eye Left eye Dist sc 20/20 20/25 +1 Tonometry (Applanation, 8:18) Right eye Left eye Pressure 15 17 Pupils Dark Light React APD Right eye 5 3 Brisk None Left eye 4 3 Slow None Visual Ibrahim Right eye Left eye Full Full Extraocular Movement Right eye Left eye Full Full Neuro/Psych Oriented x3: Yes Mood/Affect: Normal External Exam Right eye Left eye External Normal Normal Slit Lamp Exam Right eye Left eye Lids/Lashes Normal Normal Conjunctiva/Sclera White and quiet White and ken et Cornea Clear Clear Anterior Chamber Deep and quiet Trace Cell Iris Normal Normal Lens Open posterior capsule Posterior chamber intraocular lens Fundus Exam Right eye Left eye Disc Normal scleral crescent C/D Ratio 0.4 0.8 Care Teams Custom Shoe Designer And Maker Relationship Specialty Start Date End Date Sofy Nicolas MD 1 [facility] 3 [place] [phone] PCP - General 06/27/15 documented as of this encounter
--- OUTSIDE RECORDS SUMMARY | 2024-08-21 14:08 | XMS_ITS | Encounter Summary ---
Author Organization [facility] Address [address] [place] [address] Care Team Providers Care Coach Tour Driver Name Role Phone Sofy Nicolas MD Primary Care Provider [phone] [phone] Reason for Visit * Reason Comments Contraception Pt here for depo Encounter Details Date Type Department Care Team (Late st Contact Info) Description 08/20/2017 9:15 EST Nurse Only [facility] Pediatric Primary Care [address] [phone] Unknown, Provider, Tania Hauser MD 1 [facility] [address] [place] [address] Nurse, Proc [facility] Juan Carlos Rolle RN Surveillance for Depo-Provera contraception (Primary Dx) Discharge Disposition: Auto Discharge Social [...] Sign Reading Time Taken Comments Blood Pressure - - Pulse - - Temperature - - Respiratory Rate - - Oxygen Saturation - - Inhaled Oxygen Concentration - - Weight 59.4 kg (130 lb 15.3 oz) 08/20/2017 0912 EST Height - - Body Mass Index 20.88 07/07/2017 1215 EST documented in this encounter [...] 12:16 EST documented in this encounter Discharge Disposition Disposition Code Departure Means Destination Auto Discharge documented in this encounter Progress Notes * Sharon Price LPN - 08/20/2017 0915 EST Date last pap: N/A. Last Depo-Provera: 06/02/17. Side Effects if any: none. Serum HCG indicated? none. Depo-Provera 150 mg IM given in RD by Sharon Price LPN Next appointment due October - October. Sharon Price LPN 08/20/2017 9:20 documented in this encounter Plan of Treatment [...] Deltoid documented in this encounter Care Teams Coach Tour Driver Relationship Specialty Start Date End Date Sofy Nicolas MD 1 [facility] [address] [place] [address] PCP - General 06/27/15 documented as of this encounter
--- OUTSIDE RECORDS SUMMARY | 2024-08-21 14:08 | XMS_ITS | Encounter Summary ---
Author Organization [facility] Address [address] [place] [address] Care Team Providers Care Home Coordinator Name Role Phone Sofy Nicolas MD Primary Care Provider [phone] [phone] Reason for Referral * (Routine) - Closed Specialty Diagnoses / Procedures Referred By Contac t Referred To Contact Diagnoses Uveitic glaucoma, left, indeterminate stage Procedures VISUAL FIELD EXAM, EXTENDED Komal Franklin MD Phone: tel: fax: Referral ID Status Reason Start Date Expiration Date Visits Re quested Visits Authorized [id number] Closed 08/20/2017 1 1 Reason for Visit * Reason Comments Eye Problem Return in about 3 mo nths (around 08/23/2017), or if symptoms worsen or fail to improve, for HVF 24-2 for Uveitic glaucoma left eye. Vision same both, denies pain, flashes and no floaters. No drops Encounter Details Date Type Department Care Team (Late st Contact Info) Description 08/20/2017 10:00 EST Office Visit [facility] Ophthalmology - [facility] [address] [place] [address] Komal Franklin MD 111 [facility], [facility] [address] [place] [phone] Social History Tobacco Use Types Packs/Day Years [...] Progress Notes * Komal Franklin MD - 08/20/2017 1000 EST Chief Complaint Patient presents with ??? Eye Problem Return in about 3 months (around 08/23/2017), or if symptoms worsen or fail to improve, for HVF 24-2 for Uveitic glaucoma left eye. Vision same both, denies pain, flashes and no floaters. No drops HPI The patient is a 22 y.o. female here for 3 month follow up for Uveitic glaucoma left eye. Pt notes vision has been stable, no eye pain, floaters or flashes. No use of eye drops. Remicade infusion every 10 weeks, the last interval was extended to 12 weeks due to a staph infection treated with Doxycycline for 1 month. CE with PCIOL left eye about 5 years ago and yag capsulotomy. She has had no episodes of pain, redness or inflammation in the left eye. ROS Constitutional: NL ENT/Mouth NL Cardiovascular: NL Respiratory: NL Gastrointestinal: NL Genitourinary: NL Musculoskeletal: NL Integumentary: NL Neurologic: NL Psychiatric: NL Endocrine: NL Hematologic: NL Immunologic: Drug Allergy Mailing Manager: NL Exposures: None Other: Attestation: Allergies include: Ciprofloxacin; Clindamycin; and Penicillins Patient Active Problem List Diagnosis ??? Uveitis ??? High risk medication use ??? Surveillance for Depo-Provera contraception ??? Depressed mood ??? Chronic back pain ??? Staph skin infection ??? Slow transit constipation Outpatient Prescriptions Marked as Taking for the 08/20/17 encounter (Office Visit) with Komal Franklin MD Medication Sig ??? chlorhexidine (HIBICLENS) 4 % liquid Apply topically daily ??? doxycycline (VIBRA-TABS) 100 mg tablet Take 1 Tab by mouth 2 times daily. May cause upset stomach or photosensitivity. ??? inFLIXimab (REMICADE) 100 mg injection Inject 300 mg into the vein every 8 weeks ??? medroxyPROGESTERone (DEPO-PROVERA) 150 mg/mL injection Inject 1 mL into the muscle every 12 weeks. ??? mupirocin (BACTROBAN) 2 % ointment Apply topically daily. ??? TACROLIMUS (PROTOPIC TOP) Apply topically as needed. Current Facility-Administered Medications for the 08/20/17 encounter (Office Visit) with Komal Franklin MD Medication ??? medroxyPROGESTERone (DEPO-PROVERA) injection 150 mg Base Eye Exam Visual Acuity (Snellen - Linear) Right Left Dist sc 20/20 20/25 Tonometry (Applanation, 9:55) Right Left Pressure 12 14 Pupils Dark Light Right 2.5 2 Left 2.5 2 Neuro/Psych Oriented x3: Yes Mood/Affect: Normal Slit Lamp and Fundus Exam External Exam Right Left External Normal Normal Slit Lamp Exam Right Left Lids/Lashes Normal Normal Conjunctiva/Sclera White and quiet White and quiet Cornea Clear Clear Anterior Chamber Deep and quiet Deep and quiet Iris Round and reactive Round and reactive Lens Clear Posterior chamber intraocular lens, Open posterior capsule DIAGNOSTIC TESTS: HVF 24-2 Indication: Uveitic Glaucoma left eye Quality: reliable Interpretation: Right within normal limits Left general reduction in sensitivity, scattered superior defects, no HVF available for comparison IMPRESSION & PLAN: Encounter Diagnoses Name Primary? Uveitis Yes ??? Uveitic glaucoma, left, indeterminate stage ??? Pseudophakia of left eye 1. Uveitis Has had a long a complicated history. Now on treatment with Remicade. No evidence of recurrent inflammation on today's exam. Will plan to recheck in 3 months, sooner if any new symptoms. 2. Uveitic glaucoma, left, indeterminate stage She has elevated IOP in the past related to uveitis. S/p goniotomy by Dr. Schofield. We do not have prior VF for comparison, but will attempt to obtain. IOP is now fine. - Visual Field Exam, Extended 3. Pseudophakia of left eye I am scribing for Komal Franklin MD, while she is personally performing the service. Roma Ovidio, COA, 08/20/2017 12:11 I have reviewed the patient's past medical, [...] in this encounter Plan of Treatment Scheduled Orders Name Type Priority Associated Diagnoses Orde r Schedule VISUAL FIELD EXAM, EXTENDED Ophthalmology Routine Uveitic glaucoma, left, indeterminate stage Ordered: 08/20/2017 documented as of this encounter Visit Diagnoses Diagnosis Uveitis- Primary Unspecified iridocyclitis Uveitic glaucoma, left, indeterminate stage Pseudophakia of left eye Lens replaced by other means documented in this encounter Eye Exam Visual Acuity (Snellen - Linear) Right eye Left eye Dist sc 20/20 20/25 Tonometry (Applanation, 9:55) Right eye Left eye Pressure 12 14 Pupils Dark Light Right eye 2.5 2 Left eye 2.5 2 Neuro/Psych Oriented x3: Yes Mood/Affect: Normal External Exam Right eye Left eye External Normal Normal Slit Lamp Exam Right eye Left eye Lids/Lashes Normal Normal Conjunctiva/Sclera White and quiet White and ken et Cornea Clear Clear Anterior Chamber Deep and quiet Deep and quiet Iris Round and reactive Round and heidi ctive Lens Clear Posterior chambe r intraocular lens, Open posterior capsule Care Teams Home Coordinator Relationship Specialty Start Date End Date Sofy Nicolas MD 1 [facility] [address] [place] [phone] PCP - General 06/27/15 documented as of this encounter
--- OUTSIDE RECORDS SUMMARY | 2024-08-21 14:08 | XMS_ITS | Encounter Summary ---
Author Organization [facility] Address [address] [place] [address] Care Team Providers Care Account Manager Name Role Phone Sofy Nicolas MD Primary Care Provider [phone] [phone] Encounter Details Date Type Department Care Team (Late st Contact Info) Description 10/25/2017 Phlebotomy Only [address] [address] [place], Outpatient Rash of unknown cause (Primary Dx) Social History Tobacco Use Types [...] Progress Notes * Rose Sahu MD - 10/29/2017 1650 EST Called patient, no answer. Please notify patient of benign diagnosis: Staph infection. No changes to treatment needed. Rose Sahu MD documented in this encounter Plan of Treatment Not on file documented as of this encounter Procedures Procedure Name Priority Date/Time Associated Diagnosis Comments BACTERIAL CULTURE/SMEAR Routine 10/25/2017 15:49 EST Rash of unknown cause documented in this encounter Results * BACTERIAL CULTURE/SMEAR, OTHER (10/25/2017 15:49 EST) Gram Smear Result No polys seen 10/25/2017 20:[address] [facility] Gram Smear Result Many Gram positive cocci 10/25/2017 20:27 [facility] Gram Smear Result Mod Gram positive bacilli 10/25/2017 20:27 [facility] Result Heavy STAPHYLOCOCC US AUREUS 10/27/2017 8:[address] [facility] Result Mod Usual skin swathi 10/27/2017 8:[address] [facility] Result Smear suggests minimal or no inflammation . 10/27/2017 8:[address] [facility] Specimen of unknown material [...] staphylococcus aureus Trimethoprim-Sulfamet hoxazole SUSCEPTIBILITY (ISMAEL) Susceptible us Rose Sahu MD PhD MICROBIOLOGY - GENERAL OR DERABLES Final Result [facility] [address] [place] [address] documented in this encounter Visit Diagnoses Diagnosis Rash of unknown cause- Primary documented in this encounter Care Teams Account Manager Relationship Specialty Start Date End Date Sofy Nicolas MD 1 [facility] 3 [place] [address] PCP - General 06/27/15 documented as of this encounter
--- OUTSIDE RECORDS SUMMARY | 2024-08-21 14:08 | XMS_ITS | Encounter Summary ---
Author Organization [facility] Address [address] [place] [address] Care Team Providers Care Distribution Field Engineer Name Role Phone Sofy Nicolas MD Primary Care Provider [phone] Reason for Visit * Reason Comments Clinic Admin Medications Here for Remica de which she gets every 8-10 weeks. Pt's eye doctor noted trace inflammation in eyes but pt has no symptoms Encounter Details Date Type Department Care Team (Late st Contact Info) Description 11/26/2017 13:00 EDT Office Visit [facility] Rheumatology & Immunology - [address] [address] Unknown, Provider, MD Pond, Juve An MD [address] [place] [address], [address] [place] [address] Assoc, Rheum Health Uveitis (Primary [...] Sign Reading Time Taken Comments Blood Pressure 100/59 11/26/2017 1600 EDT Pulse 55 11/26/2017 1600 EDT Temperature 37.2 ??C (99 ??F) 11/26/2017 1600 EDT Respiratory Rate 16 11/26/2017 1525 EDT Oxygen Saturation - - Inhaled Oxygen Concentration - - Weight 57.6 kg (127 lb) 11/26/2017 1317 EDT Height 168.3 cm (5' 6.25) 11/26/2017 1317 EDT Body Mass Index 20.34 11/26/2017 1317 EDT documented in this encounter [...] * Patient Instructions* Mason Kern RN - 11/26/2017 13:00 EDT Infusion Therapy Visit Intravenous Biologic Medication Infliximab [...] medication therapy, please call our office at [phone] or toll free at ; Ext [phone]. For additional educational information on arthritis you may go to the [employer] as a resource. The web link is www.arthritis.org. documented in this encounter Discharge Disposition Disposition Code Departure Means Destination Auto Discharge documented in this encounter Progress Notes * Mason Kern RN - 11/26/2017 1300 EDT Biologic Infusion Therapy Infliximab (Remicade) 300 mg every 8-10 weeks Patient???s last infusion was tolerated well. Patient is free of signs and symptoms of infection. No recent or upcoming surgery scheduled. Premedication administered? Yes Acetaminophen 325 mg PO See Facility Administered Medication History for pre-med and infusion documentation. Blood Drawn: Yes CMP and CBCD drawn Patient EducationTopic: Remicade, FUR appointments, lab results Method: Verbal Taught to: Patient Barriers: None Outcomes: independent Today's infusion was tolerated well by the patient. Dose Administered: 300 mg Post infusion instruction provided to patient. Patient to call office for any adverse effects. I was supervised by Dr. Juve Pond who was present and immediately available in the office suite. MASON KERN RN 11/26/2017 13:51 documented in this encounter Plan of Treatment Not on file documented as of this encounter Procedures Procedure Name Priority Date/Time Associated Diagnosis Comments COMPLETE BLOOD COUNT AND DIFFERENTIAL Routine 11/26/2017 13:29 EDT Uveitis COMPREHENSIVE METABOLIC PANEL (CMP) Routine 11/26/2017 13:29 EDT Uveitis documented in this encounter Results * (ABNORMAL) COMPREHENSIVE METABOLIC PANEL (CMP) (11/26/2017 13:29 EDT) Potassium 4.3 3.5 - 5.0 mEq/L 11/26/2017 14:57 EDT [facility] Comment: Icteric Icterus is not a quantitative measurement of bilirubin. Sodium 139 136 - 145 mEq/L 11/26/2017 14:57 T [facility] Comment: Icteric Icterus is not a quantitative measurement of bilirubin. Chloride 101 96 - 110 mEq/L 11/26/2017 14:57 T [facility] Comment: Icteric Icterus is not a quantitative measurement of bilirubin. CO2 25 22 - 32 mEq/L 11/26/2017 14:57 [facility] Comment: Icteric Icterus is not a quantitative measurement of bilirubin. Total Alkaline Phosphatase 66 38 - 126 U/L 11/26/2017 14:57 [facility] Comment: Icteric Icterus is not a quantitative measurement of bilirubin. Bilirubin, Total <0.5 <1.4 mg/dl 11/26/2017 14:57 [facility] Comment: Icteric Icterus is not a quantitative measurement of bilirubin. AST 28 15 - 46 U/L 11/26/2017 14:57 [facility] Comment: Icteric Icterus is not a quantitative measurement of bilirubin. ALT 32 <53 U/L 11/26/2017 14:57 [facility] Comment: Icteric Icterus is not a quantitative measurement of bilirubin. Albumin 4.7 3.4 - 4.9 g/dl 11/26/2017 14:57 [facility] Comment: Icteric Icterus is not a quantitative measurement of bilirubin. Total Protein 8.5(H) 6.3 - 8.2 g/dl 11/26/2017 14:57 [facility] Comment: Icteric Icterus is not a quantitative measurement of bilirubin. Creatinine 0.59 0.52 - 1.04 mg/dl 11/26/2017 14:57 [facility] Comment: Icteric Icterus is not a quantitative measurement of bilirubin. GFR, Calculated 131 >60 ml/min/1. 73m2 11/26/2017 14:57 [facility] Comment: eGFR calculated using CKD-EPI equation for non Americans. Multiply eGFR by 1.16 for Americans. BUN 10 10 - 26 mg/dl 11/26/2017 14:57 [facility] Comment: Icteric Icterus is not a quantitative measurement of bilirubin. Calcium 10.1 8.5 - 10.5 mg/dl 11/26/2017 14:57 [facility] Comment: Icteric Icterus is not a quantitative measurement of bilirubin. Calculated Calcium 9.5 8.5 - 10.5 mg/dl 11/26/2017 14:57 [facility] Glucose, Serum 99 70 - 100 mg/dl 11/26/2017 14:57 [facility] Comment: Icteric Icterus is not a quantitative measurement of bilirubin. Fasting? Unknown 11/26/2017 14:19 [facility] Blood specimen (specimen) BLOOD SPECIMEN / Unknown 11/26/2017 13:29 EDT 11/26/2017 14:18 EDT us Juve Pond MD CHEMISTRY & BLOOD GAS ORDERABLES Final Result [facility] [address] [place] [address] * HEMAGRAM AND DIFFERENTIAL (11/26/2017 13:29 EDT) WBC 7.48 4.0 - 12.4 K/cmm 11/26/2017 14:42 [facility] RBC 4.19 3.86 - 5.04 M/cmm 11/26/2017 14:42 [facility] Hemoglobin 12.9 11.6 - 15.2 gm/dl 11/26/2017 14:42 [facility] HCT 37.4 34.9 - 44.4 % 11/26/2017 14:42 [facility] MCV 89 81 - 98 fl 11/26/2017 14:42 [facility] MCH 30.8 26.7 - 33.3 pg 11/26/2017 14:42 [facility] MCHC 34.5 32.1 - 35.9 gm/dl 11/26/2017 14:42 [facility] RDW-CV 12.2 <14.7 % 11/26/2017 14:42 [facility] RDW-SD 39.8 <50.4 fl 11/26/2017 14:42 [facility] PLT 302 141 - 377 K/cmm 11/26/2017 14:42 [facility] MPV 10.3 9.5 - 12.7 fl 11/26/2017 14:42 [facility] % Neutrophils 53.2 % 11/26/2017 14:42 [facility] % Lymphocytes 38.6 % 11/26/2017 14:42 [facility] % Monocytes 5.9 % 11/26/2017 14:42 [facility] % Eosinophils 1.7 % 11/26/2017 14:42 [facility] % Basophils 0.5 % 11/26/2017 14:42 [facility] % Immature Grans 0.1 % 11/26/2017 14:42 [facility] ABS Neutrophils 3.97 2.20 - 8.85 K/cmm 11/26/2017 14:42 [facility] ABS Lymphs 2.89 1.09 - 3.30 K/cmm 11/26/2017 14:42 [facility] ABS Monocytes 0.44 0.1 - 0.8 K/cmm 11/26/2017 14:42 [facility] ABS Eosinophils 0.13 0.03 - 0.61 K/cmm 11/26/2017 14:42 [facility] ABS Basophils 0.04 0.01 - 0.11 K/cmm 11/26/2017 14:42 [facility] ABS Immature Grans 0.01 0 - 0.06 K/cmm 11/26/2017 14:42 [facility] Type of Diff: Automated 11/26/2017 14:42 [facility] Blood specimen (specimen) BLOOD SPECIMEN / Unknown 11/26/2017 13:29 EDT 11/26/2017 14:18 EDT us Juve Pond MD PACKAGES & DNA PROBE ORDERABLES Final Result [facility] [address] [place] [address] documented in this encounter Visit Diagnoses Diagnosis Uveitis- Primary Unspecified iridocyclitis documented in this encounter Administered Medications Inactive Administered Medications - up to 3 most recent administrations Medication Order MAR Action Action Date Dose Rate Site acetaminophen (TYLENOL) tablet 325 mg 325 mg, oral, Once (Without Time Specified), 1 dose, Starting on Wed11/26/17 at 1345, Until Wed11/26/17 at 1330, RoutineIndications:Uveitis Given 11/26/2017 13:30 EDT 325 mg inFLIXimab (REMICADE) 300 mg in sodium chloride (NS) 0.9 % 250 mL IVPB 300 mg, intravenous, Administer over 120 Minutes, Once (Without Time Specified), 1 dose, Starting on Wed11/26/17 at 1345, Until Wed11/26/17 at 1625, STATIndications:Uveitis New Bag 11/26/2017 14:25 EDT 300 mg 140 mL/hr sodium chloride 0.9 % (NS) infusion at 25 mL/hr, intravenous, CONTINUOUS, Starting on Wed11/26/17 at 1345, Until Wed11/26/17 at 1855, RoutineIndications:Uveitis Rate Change 11/26/2017 16:35 EDT 0 mL/h r New Bag 11/26/2017 13:35 EDT 25 mL/hr documented in this encounter Orders Medications Ordered That Gus ht Not Have Been Administered Count Last Ordered Date First Ordered Date acetaminophen (TYLENOL) tablet 325-650 mg 1 11/26/2017 diphenhydrAMINE (BENADRYL) c apsule 25-50 mg 1 11/26/2017 diphenhydrAMINE (BENADRYL) i njection 25-50 mg 1 11/26/2017 methylPREDNISolone sod suc(P F) (SOLU-MEDROL) injection 50-100 mg 1 11/26/2017 Nursing Count Last Ordered Date First Orde red Date CARE ORDER/INSTRUCTION 1 11/26/2017 NURSING COMMUNICATION 1 11/26/2017 VITAL SIGNS 1 11/26/2017 VITAL SIGNS - NOTIFY MD 1 11/26/2017 documented in this encounter Care Teams Distribution Field Engineer Relationship Specialty Start Date End Date Sofy Nicolas MD [address] [facility] [address] [place] [address] PCP - General 06/27/15 documented as of this encounter
--- OUTSIDE RECORDS SUMMARY | 2024-08-21 14:09 | XMS_ITS | Encounter Summary ---
Author Organization [facility] Address [address] [place] [address] Care Team Providers Care Gear Room Keeper Name Role Phone Sofy Nicolas MD Primary Care Provider [phone] Reason for Visit * Reason Comments Medication Management Encounter Details Date Type Department Care Team ([facility] Contact Info) Description 04/30/2016 8:00 EDT Office Visit [facility] Rheumatology & Immunology - [address] [id number] Juve Pond Chi, MD [address] [place] [address], [address] [place] [address] Uveitis (Primary Dx); Staph skin infection; Psoriasis Social History Tobacco Use Types Packs/Day Years [...] Sign Reading Time Taken Comments Blood Pressure 97/59 04/30/2016 0801 EDT Pulse 60 04/30/2016 0801 EDT Temperature - - Respiratory Rate - - Oxygen Saturation - - Inhaled Oxygen Concentration - - Weight 57.6 kg (127 lb) 04/30/2016 0801 EDT Height 168.9 cm (5' 6.5) 04/30/2016 0801 EDT Body Mass Index 20.19 04/30/2016 0801 EDT documented in this encounter Functional Status [...] encounter Discharge Diagnoses Diagnosis H20.9 Unspecified iridocyclitis-H20.9[ICD-10-CM] L08.9 Local infection of the skin and subcutaneous tissue, unspecified-L08.9[ICD-10-CM] B95.8 Unspecified staphylococcus as the cause of diseases classified elsewhere-B95.8[ICD-10-CM] L40.9 Psoriasis, unspecified-L40.9[ICD-10-CM] documented in this encounter Patient Instructions * Patient Instructions* Juve Pond Chi, MD - 04/30/2016 8:11 EDT Continue current meds. documented in this encounter Progress Notes * Jacklyn Poe - 04/30/2016 0800 EDT REVIEW OF SYSTEMS: Yes No Yes [...] X Hand/Foot color change in cold X * Juve Pond Chi, MD - 04/30/2016 0800 EDT Images from the original note were not included. Subjective: Patient ID: Orlando Bearden is an 21 y.o. female. Chief Complaint Patient presents with ??? Medication Management HPI Comments: F/u uveitis on Remicade, ?psoriasis 2/2 Remicade, history of recurrent furuncles (managed by Hibiclens cleansing): last Remicade infusion in [facility] was almost 2 months ago. Saw an ophthalmalogist in mid January in [facility] and exam showed trace inflammation OS. Denies skin sores, boils, erythema. Uses Hibiclens qd. Past several weeks has had a tiny patch of psoriasis behind left ear. Denies any other joint pains or swelling. AM stiffness: denies Physical activity: Runs, hikes, works out. 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 Patient Active Problem List Diagnosis ??? Uveitis ??? Psoriasis ??? High risk medication use ??? Surveillance for Depo-Provera contraception ??? Depressed mood ??? Chronic back pain ??? Staph skin infection ??? Slow transit constipation Past Medical History Diagnosis Date ??? Hearing difficulty ??? Joint pain ??? Psoriasis started on remicade ??? Varicella ??? Vision abnormalities Past Surgical History Procedure Laterality Date ??? Cataract removal with implant Left 2011 ??? Glaucoma surgery Left ??? Tonsillectomy ??? Refractive surgery 2007, 2012 Outpatient Prescriptions Marked as Taking for the 04/30/16 encounter (Office Visit) with Juve Pond Chi, MD Medication Sig Dispense Refill ??? chlorhexidine (HIBICLENS) 4 % liquid Apply topically daily 960 mL 11 ??? inFLIXimab (REMICADE) 100 mg injection Inject 300 mg into the vein every 8 weeks ??? TACROLIMUS (PROTOPIC TOP) Apply topically as needed. Current Facility-Administered Medications for the 04/30/16 encounter (Office Visit) with Juve Pond Chi, MD Medication Dose Route Frequency Provider Last Rate Last Dose ??? medroxyPROGESTERone (DEPO-PROVERA) injection 150 mg 150 mg intramuscular Q3 MONTHS Cr Bertrand MD 150 mg at 12/04/15 1548 ROS - See HPI I reviewed the 10 point ROS performed by the nurse which is as documented in Prism. Objective: Visit Vitals ??? BP 97/59 ??? Pulse 60 ??? Ht 168.9 cm (66.5) ??? Wt 57.6 kg (127 lb) ??? BMI 20.19 kg/m2 Physical Exam Constitutional: She is oriented to person, place, and time. She appears well- developed and well-nourished. No distress. Attractive, young female HENT: Head: Normocephalic and atraumatic. [...] time. No cranial nerve deficit. Skin: No rash noted. Red, slightly scaly, cracked skin behind left ear. No nail onycholysis or pitting. Psychiatric: She has a normal mood and affect. Her behavior is normal. Vitals reviewed. 09/25/15: CBC, CMP - normal External labs 01/24/16: WBC 5.89, Hgb 12, HCT 36.2 ESR 16 CMP normal 02/20/16: Chlamydia/GC PCR urine- negative RAPID3 (Routine assessment of pt index data): Rapid3 score: 5 Disease activity: low Goal: prevent relapse of uveitis while minimizing side effects from meds. This was discussed with patient. Assessment: 1. Uveitis 2. Staph skin infection 3. Psoriasis Plan: Uveitis- No relapse while maintaining on Remicade infusions every 8 weeks. Proceed with Remicade infusion in one week. No infectious complications over the summer. Staph skin infection- History of furuncles at the buttock region and vaginal area. No recurrence; patient bathes daily with Hibiclens. Psoriasis- Mild, behind left ear. Use topical steroids; observe. Barriers to learning identified: No Patient verbalizes understanding and agrees with plan Yes F/u 1 yr. Juve Pond MD documented in this encounter Plan of Treatment Not on file documented as of this encounter Visit Diagnoses Diagnosis Uveitis- Primary Unspecified iridocyclitis Staph skin infection Unspecified local infection of skin and subcutaneous tissue Psoriasis Other psoriasis documented in this encounter Care Teams Gear Room Keeper Relationship Specialty Start Date End Date Sofy Nicolas MD 1 [facility] [address] [place] [address] PCP - General 06/27/15 documented as of this encounter
--- OUTSIDE RECORDS SUMMARY | 2024-08-21 14:09 | XMS_ITS | Encounter Summary ---
Author Organization [facility] Address [address] [place] [address] Care Team Providers Care Crystallizer Operator Name Role Phone Sofy Nicolas MD Primary Care Provider [phone] [phone] Reason for Visit * Reason Comments Clinic Admin Medications pt with uveitis here for Remicade infusion of 300mg. Interval changed to q [address] Pond. Encounter Details Date Type Department Care Team (Late st Contact Info) Description 04/15/2017 9:00 EDT Office Visit [facility] Rheumatology & Immunology - [address] [address] Unknown, Provider, MD Pond, Juve An MD [address] [place] [address], [address] [place] [address] Assoc, Rheum Health Uveitis (Primary Dx); Encounter for long-term (current) use of medications Discharge Disposition: Auto Discharge Social History Tobacco [...] Sign Reading Time Taken Comments Blood Pressure 115/67 04/15/2017 1146 EDT Pulse 55 04/15/2017 1146 EDT Temperature 36.6 ??C (97.8 ??F) 04/15/2017 1146 EDT Respiratory Rate - - Oxygen Saturation - - Inhaled Oxygen Concentration - - Weight - - Height - - Body Mass Index - - documented in this encounter Functional Status * [...] this encounter Patient Instructions * Patient Instructions* Yancy Honeycutt RN - 04/15/2017 9:00 EDT Infusion Therapy Visit Intravenous Biologic Medication [...] medication therapy, please call our office at [phone] or toll free at ; Ext [phone]. For additional educational information on arthritis you may go to the Arth[employer] as a resource. The web link is www.arthritis.org. documented in this encounter Discharge Disposition Disposition Code Departure Means Destination Auto Discharge documented in this encounter Progress Notes * Yancy Honeycutt RN - 04/15/2017 0900 EDT Biologic Infusion Therapy Infliximab (Remicade) Patient???s last infusion was tolerated well. Patient is free of signs and symptoms of infection. No recent or upcoming surgery scheduled. Premedication administered? Yes acetaminophen 325mg po See Facility Administered Medication History for pre-med and infusion documentation. Blood Drawn: Yes - CBCD, ESR, CRP. Patient EducationTopic: Remicade schedule Method: Verbal Taught to: Patient Barriers: None Outcomes: verbalized understanding Today's infusion was tolerated well by the patient. Dose Administered: 300mg Post infusion instruction provided to patient. Patient to call office for any adverse effects. I was supervised by Juve Pond MD who was present and immediately available in the office suite. YANCY HONEYCUTT RN 04/15/2017 9:21 documented in this encounter Plan of Treatment Not on file documented as of this encounter Procedures Procedure Name Priority Date/Time Associated Diagnosis Comments SED RATE Routine 04/15/2017 9:00 EDT Uveitis Encounter for long-term (current) use of medications COMPLETE BLOOD COUNT AND DIFFERENTIAL Routine 04/15/2017 9:00 EDT Uveitis Encounter for long-term (current) use of medications C REACTIVE PROTEIN Routine 04/15/2017 9: 00 EDT Uveitis Encounter for long-term (current) use of medications documented in this encounter Results * C REACTIVE PROTEIN (04/15/2017 9:00 EDT) C Reactive Protein <7.0 <10.0 mg/L 04/15/2017 10:39 EDT [facility] Blood specimen (specimen) BLOOD SPECIMEN / Unknown 04/15/2017 9:00 EDT 04/15/2017 9:45 EDT us Juve Pond MD CHEMISTRY & BLOOD GAS ORDERABLES Final Result [facility] [address] [place] [address] * (ABNORMAL) SED. RATE:OGREN (04/15/2017 9:00 EDT) Pathologist [facility] Sed. Rate Dajuanergren 22(H) 0 - 20 mm/hr 04/15/2017 9:52 T [facility] Blood specimen (specimen) BLOOD SPECIMEN / Unknown 04/15/2017 9:00 EDT 04/15/2017 9:45 EDT us Juve Pond MD HEMATOLOGY & PF4 ORDERABLES Nessa prince Result [facility] [address] [place] [address] * HEMAGRAM AND DIFFERENTIAL (04/15/2017 9:00 EDT) WBC 6.20 4.0 - 12.4 K/cmm 04/15/2017 10:03 [facility] RBC 4.18 3.86 - 5.04 M/cmm 04/15/2017 10:03 [facility] Hemoglobin 12.6 11.6 - 15.2 gm/dl 04/15/2017 10:03 [facility] HCT 37.0 34.9 - 44.4 % 04/15/2017 10:03 [facility] MCV 89 81 - 98 fl 04/15/2017 10:03 [facility] MCH 30.1 26.7 - 33.3 pg 04/15/2017 10:03 [facility] MCHC 34.1 32.1 - 35.9 gm/dl 04/15/2017 10:03 [facility] RDW-CV 12.0 <14.7 % 04/15/2017 10:03 [facility] RDW-SD 38.8 <50.4 fl 04/15/2017 10:03 [facility] PLT 291 141 - 377 K/cmm 04/15/2017 10:03 [facility] MPV 10.0 9.5 - 12.7 fl 04/15/2017 10:03 [facility] % Neutrophils 49.0 % 04/15/2017 10:03 [facility] % Lymphocytes 38.5 % 04/15/2017 10:03 [facility] % Monocytes 9.5 % 04/15/2017 10:03 [facility] % Eosinophils 2.3 % 04/15/2017 10:03 [facility] % Basophils 0.5 % 04/15/2017 10:03 [facility] % Immature Grans 0.2 % 04/15/2017 10:03 [facility] ABS Neutrophils 3.04 2.20 - 8.85 K/cmm 04/15/2017 10:03 [facility] ABS Lymphs 2.39 1.09 - 3.30 K/cmm 04/15/2017 10:03 [facility] ABS Monocytes 0.59 0.1 - 0.8 K/cmm 04/15/2017 10:03 [facility] ABS Eosinophils 0.14 0.03 - 0.61 K/cmm 04/15/2017 10:03 [facility] ABS Basophils 0.03 0.01 - 0.11 K/cmm 04/15/2017 10:03 [facility] ABS Immature Grans 0.01 0 - 0.06 K/cmm 04/15/2017 10:03 [facility] Type of Diff: Automated 04/15/2017 10:03 [facility] Blood specimen (specimen) BLOOD SPECIMEN / Unknown 04/15/2017 9:00 EDT 04/15/2017 9:45 EDT us Juve Pond MD PACKAGES & DNA PROBE ORDERABLES Final Result [facility] [address] [place] [address] documented in this encounter Visit Diagnoses Diagnosis Uveitis- Primary Unspecified iridocyclitis Encounter for long-term (current) use of medications Encounter for long-term (current) use of other medications documented in this encounter Administered Medications Inactive Administered Medications - up to 3 most recent administrations Medication Order MAR Action Action Date Dose Rate Site acetaminophen (TYLENOL) tablet 325 mg 325 mg, oral, Once (Without Time Specified), 1 dose, Starting on Wed04/15/17 at 0915, Until Belinda 04/15/17 at 0850, RoutineIndications:Uveitis Given 04/15/2017 8:50 EDT 325 mg inFLIXimab (REMICADE) 300 mg in sodium chloride (NS) 0.9 % 250 mL IVPB 300 mg, intravenous, Administer over 120 Minutes, Once (Without Time Specified), 1 dose, Starting on Belinda 04/15/17 at 0915, Until Belinda 04/15/17 at 1135, RoutineIndications:Uveitis Rate Documented 04/15/2017 10:40 EDT 300 mg 125 mL/hr Rate Documented 04/15/2017 10:10 EDT 300 mg 125 mL/hr New Bag 04/15/2017 9:40 EDT 300 mg 125 mL/hr sodium chloride 0.9 % (NS) infusion at 25 mL/hr, intravenous, CONTINUOUS, Starting on Belinda 04/15/17 at 0915, Until Belinda 04/15/17 at 1441, RoutineIndications:Uveitis New Bag 04/15/2017 9:10 EDT 25 mL/hr documented in this encounter Orders Medications Ordered That Gus ht Not Have Been Administered Count Last Ordered Date First Ordered Date acetaminophen (TYLENOL) tablet 325-650 mg 1 04/15/2017 diphenhydrAMINE (BENADRYL) c apsule 25-50 mg 1 04/15/2017 diphenhydrAMINE (BENADRYL) i njection 25-50 mg 1 04/15/2017 methylPREDNISolone sodium WALLER CCINATE (SOLU-MEDROL) injection 50-100 mg 1 04/15/2017 Nursing Count Last Ordered Date First Orde red Date CARE ORDER/INSTRUCTION 1 04/15/2017 NURSING COMMUNICATION 1 04/15/2017 VITAL SIGNS 1 04/15/2017 VITAL SIGNS - NOTIFY MD 1 04/15/2017 documented in this encounter Care Teams Crystallizer Operator Relationship Specialty Start Date End Date Sofy Nicolas MD [address] [facility] [address] [place] [address] PCP - General 06/27/15 documented as of this encounter
--- OUTSIDE RECORDS SUMMARY | 2024-08-21 14:09 | XMS_ITS | Encounter Summary ---
Author Organization [facility] Address [address] [place] [address] Care Team Providers Care Shovel Handle Assembler Name Role Phone Sofy Nicolas MD Primary Care Provider [phone] Reason for Visit * Reason Comments Clinic Admin Medications pt with uveitis here for q 8 wk Remicade infuaion of 300mg Encounter Details Date Type Department Care Team (Late st Contact Info) Description 08/27/2016 11:00 EST Office Visit [facility] Rheumatology & Immunology - [address] [id number] Unknown, Provider, MD Pond, Juve An MD [address] [place] [address], [address] [place] [address] Assoc, Rheum Health Uveitis (Primary Dx); Psoriasis Discharge Disposition: Auto Discharge Social History Tobacco [...] Sign Reading Time Taken Comments Blood Pressure 104/65 08/27/2016 1405 EST Pulse 65 08/27/2016 1405 EST Temperature 37.3 ??C (99.1 ??F) 08/27/2016 1405 EST Respiratory Rate - - Oxygen Saturation - - Inhaled Oxygen Concentration - - Weight 59.4 kg (131 lb) 08/27/2016 1117 EST Height - - Body Mass Index 20.98 07/02/2016 1302 EDT documented in this encounter Functional Status [...] * Patient Instructions* Yancy Honeycutt RN - 08/27/2016 11:00 EST Infusion Therapy Visit Intravenous Biologic Medication [...] medication therapy, please call our office at [phone] or toll free at ; Ext [phone]. For additional educational information on arthritis you may go to the Arthritis [employer] as a resource. The web link is www.arthritis.org. documented in this encounter Discharge Disposition Disposition Code Departure Means Destination Auto Discharge documented in this encounter Progress Notes * Yancy Honeycutt RN - 08/27/2016 1100 EST Biologic Infusion Therapy Infliximab (Remicade) Patient???s last infusion was tolerated well. Patient is free of signs and symptoms of infection. No recent or upcoming surgery scheduled. Premedication administered? Yes - acetaminophen 325mg po, diphenhydramine 25mg po See Facility Administered Medication History for pre-med and infusion documentation. Blood Drawn: No Patient EducationTopic: Remicade scheduling Method: Verbal Taught to: Patient Barriers: None Outcomes: verbalized understanding Today's infusion was tolerated well by the patient. Dose Administered: 300mg Post infusion instruction provided to patient. Patient to call office for any adverse effects. I was supervised by Juve Pond MD who was present and immediately available in the office suite. YANCY HONEYCUTT RN 08/27/2016 11:38 documented in this encounter Plan of Treatment Not on file documented as of this encounter Visit Diagnoses Diagnosis Uveitis- Primary Unspecified iridocyclitis Psoriasis Other psoriasis documented in this encounter Administered Medications Inactive Administered Medications - up to 3 most recent administrations Medication Order MAR Action Action Date Dose Rate Site acetaminophen (TYLENOL) tablet 325 mg 325 mg, oral, Once (Without Time Specified), 1 dose, Starting on Belinda 08/27/16 at 1145, Until Belinda 08/27/16 at 1135, RoutineIndications:Uveitis ,Psoriasis Given 08/27/2016 11:35 EST 325 mg diphenhydrAMINE (BENADRYL) capsule 25 mg 25 mg, oral, Once (Without Time Specified), 1 dose, Starting on Belinda 08/27/16 at 1145, Until Belinda 08/27/16 at 1135, RoutineIndications:Uveitis ,Psoriasis Given 08/27/2016 11:35 EST 25 mg inFLIXimab (REMICADE) 300 mg in sodium chloride (NS) 0.9 % 250 mL IVPB 300 mg, intravenous, Administer over 120 Minutes, Once (Without Time Specified), 1 dose, Starting on Belinda 08/27/16 at 1145, Until Belinda 08/27/16 at 1405, RoutineIndications:Uveitis ,Psoriasis Rate Documented 08/27/2016 13:05 EST 300 mg 125 mL/hr Rate Documented 08/27/2016 12:35 EST 300 mg 125 mL/hr New Bag 08/27/2016 12:05 EST 300 mg 125 mL/hr sodium chloride 0.9 % (NS) infusion at 25 mL/hr, intravenous, CONTINUOUS, Starting on Belinda 12/29/16 at 1145, Until Belinda 08/27/16 at 1622, RoutineIndications:Uveitis,Psoriasis New Bag 08/27/2016 11:30 EST 25 mL/hr documented in this encounter Orders Medications Ordered That Ugs ht Not Have Been Administered Count Last Ordered Date First Ordered Date acetaminophen (TYLENOL) tablet 325-650 mg 1 08/27/2016 diphenhydrAMINE (BENADRYL) c apsule 25-50 mg 1 08/27/2016 diphenhydrAMINE (BENADRYL) i njection 25-50 mg 1 08/27/2016 methylPREDNISolone sodium WALLER CCINATE (SOLU-MEDROL) injection 50-100 mg 1 08/27/2016 documented in this encounter Care Teams Shovel Handle Assembler Relationship Specialty Start Date End Date Sofy Nicolas MD 1 [facility] [address] [place] [phone] PCP - General 06/27/15 documented as of this encounter
--- OUTSIDE RECORDS SUMMARY | 2024-08-21 14:09 | XMS_ITS | Encounter Summary ---
Author Organization [facility] Address [address] [place] [address] Care Team Providers Care Safety Physician Name Role Phone Sofy Nicolas MD Primary Care Provider [phone] Reason for Visit * Reason Comments Infusion q 8 week Remicade Encounter Details Date Type Department Care Team (Latest Contact Info) Description 12/30/2016 13:00 EDT Office Visit [facility] Rheumatology & Immunology - [facility] [address] [place], [place] [id number] Unknown, Provider, Gadiel Griffin MD [address] [place] [phone] Assoc, Rheum Health Uveitis (Primary Dx); Psoriasis Social History Tobacco Use Types Packs/Day [...] Sign Reading Time Taken Comments Blood Pressure 111/65 12/30/2016 1543 EDT Pulse 71 12/30/2016 1543 EDT Temperature 37.2 ??C (99 ??F) 12/30/2016 1543 EDT Respiratory Rate - - Oxygen Saturation - - Inhaled Oxygen Concentration - - Weight 58.1 kg (128 lb) 12/30/2016 1247 EDT Height - - Body Mass Index 20.5 07/02/2016 1302 EDT documented in this encounter [...] this encounter Patient Instructions * Patient Instructions* Mali Brito RN - 12/30/2016 13:00 EDT Infusion Therapy Visit Intravenous Biologic [...] medication therapy, please call our office at [phone] or toll free at ; Ext [phone]. For additional educational information on arthritis you may go to the Arthritis Foundation as a resource. The web link is www.arthritis.org. documented in this encounter Progress Notes * Mali Brito RN - 12/30/2016 1300 EDT Biologic Infusion Therapy Infliximab (Remicade) every 8 weeks Patient???s last infusion was tolerated well. Patient is free of signs and symptoms of infection. No recent or upcoming surgery scheduled. Premedication administered? Yes 325mg acetaminophen PO 25mg diphenhydramine PO not given, pt declined See Facility Administered Medication History for pre-med and infusion documentation. Blood Drawn: No Patient EducationTopic: Remicade Method: Verbal Taught to: Patient Barriers: None Outcomes: independent and verbalized understanding Today's infusion was tolerated well by the patient. Dose Administered: 300mg Post infusion instruction provided to patient. Patient to call office for any adverse effects. I was supervised by Juve Pond MD who was present and immediately available in the office suite. MALI BRITO RN 12/30/2016 13:20 documented in this encounter Plan of Treatment [...] (Without Time Specified), 1 dose, Starting on Wed12/30/16 at 1315, Until Wed12/30/16 at 1250, RoutineIndications:Uveitis,Psor iasis Given 12/30/2016 12:50 EDT 325 mg inFLIXimab (REMICADE) 300 mg in sodium chloride (NS) 0.9 % 250 mL IVPB 300 mg, intravenous, Administer over 120 Minutes, Once (Without Time Specified), 1 dose, Starting on Wed12/30/16 at 1315, Until Wed12/30/16 at 1527, RoutineIndications:Uveitis,Psor iasis New Bag 12/30/2016 13:25 EDT 300 mg 125 mL/hr sodium chloride 0.9 % (NS) infusion at 25 mL/hr, intravenous, CONTINUOUS, Starting on Wed12/30/16 at 1315, Until Wed12/30/16 at 1751, RoutineIndications:Uveitis,Psor iasis New Bag 12/30/2016 13:15 EDT 25 mL/hr documented in this encounter Orders Medications Ordered That Gus ht Not Have Been Administered Count Last Ordered Date First Ordered Date acetaminophen (TYLENOL) tablet 325-650 mg 1 12/30/2016 diphenhydrAMINE (BENADRYL) capsule 25 mg 1 12/30/2016 diphenhydrAMINE (BENADRYL) c apsule 25-50 mg 1 12/30/2016 diphenhydrAMINE (BENADRYL) i njection 25-50 mg 1 12/30/2016 methylPREDNISolone sodium WALLER CCINATE (SOLU-MEDROL) injection 50-100 mg 1 12/30/2016 documented in this encounter Care Teams Safety Physician Relationship Specialty Start Date End Date Sofy Nicoals MD 1 [facility] [address] [place] [phone] PCP - General 06/27/15 documented as of this encounter
--- OUTSIDE RECORDS SUMMARY | 2024-08-21 14:09 | XMS_ITS | Encounter Summary ---
Author Organization [facility] Address [address] [place] [address] Care Team Providers Care 7Th Grade Teacher Name Role Phone Sofy Nicolas MD Primary Care Provider [phone] Reason for Visit * Reason Comments Contraception Encounter Details Date Type Department Care Team ([facility] st Contact Info) Description 10/12/2016 15:30 EST Nurse Only [facility] Pediatric Primary Care - [place] [address] [place] [address] Unknown, Provider, Nurse, Proc [facility] Juan Carlos Rolle, Paige Self MD Encounter for surveillance of injectable contraceptive (Primary [...] Sign Reading Time Taken Comments Blood Pressure 106/60 10/12/2016 1543 EST Pulse - - Temperature - - Respiratory Rate - - Oxygen Saturation - - Inhaled Oxygen Concentration - - Weight 57.2 kg (126 lb) 10/12/2016 1543 EST Height - - Body Mass Index 20.18 07/02/2016 1302 EDT documented in this encounter [...] documented in this encounter Progress Notes * Ama Dietz RN - 10/12/2016 1530 EST Pt is on time for her Depo so no UPT is indicated. She is happy doing well in School and has no complaints. Depo given IM right arm with no adverse response. She agrees to return 12/28/thru 01/11/17 for her next Depo. No barriers Date last pap: N/A Last Depo-Provera: 07/27/17. Side Effects if any: none Serum HCG indicated? no Depo-Provera 150 mg IM given by: Ama Dietz RN Next appointment due ru 01/11/17. I was supervised by Dr. Nano Chowdary who was present and immediately available in the office suite. Ama Dietz RN 10/12/2016 15:47 documented in this encounter Plan of Treatment [...] 3 MONTHS, 4 doses, First dose on Wed12/04/15 at 1615, Last dose on Wed09/02/16 at 1615, Routine Given 10/12/2016 15:47 EST 150 mg Right Deltoid Given 07/27/2016 15:51 EST 150 mg Given 05/11/2016 16:20 EDT 150 mg Left Deltoid documented in this encounter Care Teams 7Th Grade Teacher Relationship Specialty Start Date End Date Sofy Nicolas MD 1 [facility] [address] [place] [phone] PCP - General 06/27/15 documented as of this encounter
--- OUTSIDE RECORDS SUMMARY | 2024-08-21 14:09 | XMS_ITS | Encounter Summary ---
Author Organization [facility] Address [address] [place] [address] Care Team Providers Care Manager Of Financial Reporting Name Role Phone Sofy Nicolas MD Primary Care Provider [phone] Reason for Visit * Reason Comments Infusion Remicade every 8 wee ks Encounter Details Date Type Department Care Team ([facility] st Contact Info) Description 09/25/2015 8:00 EST Office Visit [facility] Rheumatology & Immunology - [address] [phone] Unknown, Provider, MD Pond, Juve An MD [address] [place] [address], [address] [place] [address] Assoc, Rheum Health Uveitis (Primary [...] Sign Reading Time Taken Comments Blood Pressure 127/65 09/25/2015 1100 EST Pulse 61 09/25/2015 1100 EST Temperature 37.2 ??C (99 ??F) 09/25/2015 1100 EST Respiratory Rate - - Oxygen Saturation - - Inhaled Oxygen Concentration - - Weight 55.3 kg (122 lb) 09/25/2015 0804 EST Height 169 cm (5' 6.54) 09/25/2015 0804 EST Body Mass Index 19.38 09/25/2015 0804 EST documented in this encounter Functional Status * Because of a physical, mental, or emotional condition, does this person have difficulty doing errands alone such as visiting a doctor's office or shopping? Answer Date of Assessment Author No 06/05/2015 15:59 EDT documented as of this encounter Mental Status * Because of a physical, mental, or emotional condition, does this person have serious difficulty concentrating, remembering, or making decisions? 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 For additional educational information on arthritis you may go to the Ar[employer] as a resource. The web link is www.arthritis.org. documented in this encounter Progress Notes * Arlene Pearce RN - 09/25/2015 0826 EST Biologic Infusion Therapy Infliximab (Remicade) Patient???s last infusion was tolerated well. Patient is free of signs and symptoms of infection. No recent or upcoming surgery scheduled. Premedication administered? Yes, pt refused benadryl as it makes her sleepy and she has class afterthis infusion. See Facility Administered Medication History for pre-med and infusion documentation. Blood Drawn: Yes Patient EducationTopic: Remicade Scheduling Method: Verbal Taught to: Patient Barriers: None Outcomes: independent and verbalized understanding Today's infusion was tolerated well by the patient. Dose Administered: 300 mg in 250 mL Post infusion instruction provided to patient. Patient to call office for any adverse effects. I was supervised by Juve Pond MD who was present and immediately available in the office suite. Arlene Pearce RN 09/25/2015 documented in this encounter Plan of Treatment Not on file documented as of this encounter Procedures Procedure Name Priority Date/Time Associated Diagnosis Comments COMPLETE BLOOD COUNT AND DIFFERENTIAL Routine 09/25/2015 8:06 EST Uveitis Psoriasis COMPREHENSIVE METABOLIC PANEL (CMP) Routine 09/25/2015 8:06 EST Uveitis Psoriasis documented in this encounter Results * COMPREHENSIVE METABOLIC PANEL (CMP) (09/25/2015 8:06 EST) Potassium 4.4 3.5 - 5.0 mEq/L 09/25/2015 9:13 [facility] Sodium 141 136 - 145 mEq/L 09/25/2015 9:13 [facility] Chloride 105 96 - 110 mEq/L 09/25/2015 9:13 [facility] CO2 24 24 - 32 mEq/L 09/25/2015 9:13 [facility] Total Alkaline Phosphatase 65 38 - 126 U/L 09/25/2015 9:13 [facility] Bilirubin, Total <0.5 <1.4 mg/dl 09/25/19 16 9:13 [facility] AST 30 15 - 46 U/L 09/25/2015 9:13 [facility] ALT 41 <53 U/L 09/25/2015 9:13 [facility] Albumin 4.5 3.4 - 4.9 g/dl 09/25/2015 9:13 [facility] Total Protein 7.7 6.3 - 8.2 g/dl 09/25/2015 9:13 [facility] Creatinine 0.65 0.52 - 1.04 mg/dl 09/25/2015 9:13 [facility] GFR, Calculated 129 >60 ml/min/1.7 3m2 09/25/2015 9:13 [facility] Comment: eGFR calculated using CKD-EPI equation for non Americans. Multiply eGFR by 1.16 for Americans. BUN 10 10 - 26 mg/dl 09/25/2015 9:13 [facility] Calcium 9.7 8.5 - 10.5 mg/dl 09/25/2015 9:13 [facility] Calculated Calcium 9.6 8.5 - 10.5 mg/dl 09/25/2015 9:13 [facility] Glucose, Serum 84 70 - 100 mg/dl 09/25/2015 9:13 [facility] Fasting? Unknown 09/25/2015 8:48 [facility] Blood specimen (specimen) BLOOD SPECIMEN / Unknown 09/25/2015 8:06 EST 09/25/2015 8:47 EST us Juve Pond MD CHEMISTRY & BLOOD GAS ORDERABLES Final Result [facility] [address] [place] [address] * (ABNORMAL) HEMAGRAM AND DIFFERENTIAL (09/25/2015 8:06 EST) WBC 5.47 4.0 - 12.4 K/cmm 09/25/2015 9:05 [facility] RBC 4.03 3.86 - 5.04 M/cmm 09/25/2015 9:05 [facility] Hemoglobin 11.9 11.6 - 15.2 gm/dl 09/25/2015 9:05 [facility] HCT 35.7 34.9 - 44.4 % 09/25/2015 9:05 [facility] MCV 89 81 - 98 fl 09/25/2015 9:05 [facility] MCH 29.5 26.7 - 33.3 pg 09/25/2015 9:05 [facility] MCHC 33.3 32.1 - 35.9 gm/dl 09/25/2015 9:05 [facility] RDW-CV 12.2 11.7 - 14.6 % 09/25/2015 9:05 [facility] RDW-SD 39.7 37.6 - 50.3 fl 09/25/2015 9:05 [facility] PLT 301 141 - 377 K/cmm 09/25/2015 9:05 [facility] Comment:Note new reference r lian effective 09/09/15 MPV 9.8 9.5 - 12.7 fl 09/25/2015 9:05 [facility] Comment:Note new reference r lian effective 09/09/15 Neutrophils 24.0 % 09/25/2015 9:33 [facility] Lymphocytes 64.0 % 09/25/2015 9:33 [facility] % Atyp Lymphs 1.0 % 09/25/2015 9:33 [facility] Monocytes 6.0 % 09/25/2015 9:33 [facility] Eosinophils 4.0 % 09/25/2015 9:33 [facility] Basophils 1.0 % 09/25/2015 9:33 [facility] ABS Neutrophils 1.31(L) 2.20 - 8.85 K/cmm 09/25/2015 9:33 [facility] ABS Lymphs 3.51(H) 1.09 - 3.30 K/cmm 09/25/2015 9:33 [facility] ABS Atyp Lymphs 0.05 K/cmm 6 9:33 [facility] ABS Monocytes 0.33 0.1 - 0.8 K/cmm 09/25/2015 9:33 [facility] ABS Eosinophils 0.22 0.03 - 0.61 K/cmm 09/25/2015 9:33 [facility] ABS Basophils 0.05 0.01 - 0.11 K/cmm 09/25/2015 9:33 [facility] Type of Diff: Manual 09/25/2015 9:33 [facility] Blood specimen (specimen) BLOOD SPECIMEN / Unknown 09/25/2015 8:06 EST 09/25/2015 8:47 EST us Juve Pond MD PACKAGES & DNA PROBE ORDERABLES Final Result [facility] [address] [place] [address] documented in this encounter Visit Diagnoses Diagnosis Uveitis- Primary Unspecified iridocyclitis Psoriasis Other psoriasis documented in this encounter Administered Medications Inactive Administered Medications - up to 3 most recent administrations Medication Order MAR Action Action Date Dose Rate Site acetaminophen (TYLENOL) tablet 325 mg 325 mg, oral, Once (Without Time Specified), 1 dose, Starting on Wed09/25/15 at 0830, Until Wed09/25/15 at 0806, RoutineIndications:Uveitis,Psoria sis Given 09/25/2015 8:06 EST 325 mg inFLIXimab (REMICADE) 300 mg in sodium chloride (NS) 0.9 % 250 mL IVPB 300 mg, intravenous, Administer over 120 Minutes, Once (Without Time Specified), 1 dose, Starting on Wed09/25/15 at 0830, Until Wed09/25/15 at 1100, RoutineIndications:Uveitis,Psoria sis New Bag 09/25/2015 9:00 EST 300 mg sodium chloride 0.9 % (NS) infusion at 25 mL/hr, intravenous, CONTINUOUS, Starting on Wed09/25/15 at 0830, Until Wed09/25/15 at 1322, RoutineIndications:Uveitis,Psoria sis New Bag 09/25/2015 8:20 EST 25 mL/hr documented in this encounter Orders Medications Ordered That Gus ht Not Have Been Administered Count Last Ordered Date First Ordered Date acetaminophen (TYLENOL) tablet 325-650 mg 1 09/25/2015 diphenhydrAMINE (BENADRYL) c apsule 25-50 mg 1 09/25/2015 diphenhydrAMINE (BENADRYL) i njection 25-50 mg 1 09/25/2015 methylPREDNISolone sodium WALLER CCINATE (SOLU-MEDROL) injection 50-100 mg 1 09/25/2015 documented in this encounter Care Teams Manager Of Financial Reporting Relationship Specialty Start Date End Date Sofy Nicolas MD [address] [facility] [address] [place] [address] PCP - General 06/27/15 documented as of this encounter
--- OUTSIDE RECORDS SUMMARY | 2024-08-21 14:09 | XMS_ITS | Encounter Summary ---
Author Organization [facility] Address [address] [place] [address] Care Team Providers Care Shooting Gallery Operator Name Role Phone Sofy Nicolas MD Primary Care Provider [phone] Reason for Visit * Reason Comments Clinic Admin Medications pt with uveitis here for q 8 wk Remicade infusion of 300mg Encounter Details Date Type Department Care Team ([facility] st Contact Info) Description 05/05/2016 13:00 EDT Office Visit [facility] Rheumatology & Immunology - [address] [phone] Unknown, Provider, MD Pond, Juve An MD [address] [place] [address], [address] [place] [address] Assoc, Rheum Health Uveitis (Primary [...] Sign Reading Time Taken Comments Blood Pressure 100/57 05/05/2016 1610 EDT Pulse 64 05/05/2016 1610 EDT Temperature 37.4 ??C (99.3 ??F) 05/05/2016 1610 EDT Respiratory Rate - - Oxygen Saturation - - Inhaled Oxygen Concentration - - Weight 58.1 kg (128 lb) 05/05/2016 1328 EDT Height - - Body Mass Index 20.35 04/30/2016 0801 EDT documented in this encounter [...] * Patient Instructions* Yancy Honeycutt RN - 05/05/2016 13:33 EDT Infusion Therapy Visit Intravenous Biologic Medication [...] medication therapy, please call our office at [phone] or toll free at ; Ext [phone]. For additional educational information on arthritis you may go to the Arth[employer] as a resource. The web link is www.arthritis.org. documented in this encounter Discharge Disposition Disposition Code Departure Means Destination Auto Discharge documented in this encounter Progress Notes * Yancy Honeycutt RN - 05/05/2016 3124 EDT Biologic Infusion Therapy Infliximab (Remicade) Patient???s last infusion was tolerated well. Patient is free of signs and symptoms of infection. No recent or upcoming surgery scheduled. Premedication administered? Yes Acetaminophen 325mg. Pt declined Diphenhydramine. See Facility Administered Medication History for pre-med and infusion documentation. Blood Drawn: Yes CBCD, CMP Patient EducationTopic: Remicade schedule Method: Verbal Taught to: Patient Barriers: None Outcomes: verbalized understanding Today's infusion was tolerated well by the patient. Dose Administered: 300mg Post infusion instruction provided to patient. Patient to call office for any adverse effects. I was supervised by Juve Pond MD who was present and immediately available in the office suite. YANCY HONEYCUTT RN 05/05/2016 13:35 documented in this encounter Plan of Treatment Not on file documented as of this encounter Procedures Procedure Name Priority Date/Time Associated Diagnosis Comments COMPLETE BLOOD COUNT AND DIFFERENTIAL Routine 05/05/2016 13:25 EDT COMPREHENSIVE METABOLIC PANEL (CMP) Routine 05/05/2016 13:25 EDT documented in this encounter Results * (ABNORMAL) COMPREHENSIVE METABOLIC PANEL (CMP) (05/05/2016 13:25 EDT) Potassium 4.4 3.5 - 5.0 mEq/L 05/05/2016 18:41 [facility] Sodium 144 136 - 145 mEq/L 05/05/2016 18:41 [facility] Chloride 104 96 - 110 mEq/L 05/05/2016 18:41 [facility] CO2 23(L) 24 - 32 mEq/L 05/05/2016 18:41 [facility] Total Alkaline Phosphatase 56 38 - 126 U/L 05/05/2016 18:41 [facility] Bilirubin, Total 0.7 <1.4 mg/dl 05/05/20 16 18:41 [facility] AST 30 15 - 46 U/L 05/05/2016 18:41 [facility] ALT 24 <53 U/L 05/05/2016 18:41 [facility] Albumin 4.9 3.4 - 4.9 g/dl 05/05/2016 18:41 [facility] Total Protein 8.2 6.3 - 8.2 g/dl 05/05/2016 18:42 [facility] Creatinine 0.56 0.52 - 1.04 mg/dl 05/05/2016 18:41 [facility] GFR, Calculated 135 >60 ml/min/1.7 3m2 05/05/2016 18:41 [facility] Comment: eGFR calculated using CKD-EPI equation for non Americans. Multiply eGFR by 1.16 for Americans. BUN 11 10 - 26 mg/dl 05/05/2016 18:41 [facility] Calcium 9.9 8.5 - 10.5 mg/dl 05/05/2016 18:41 [facility] Calculated Calcium 9.4 8.5 - 10.5 mg/dl 05/05/2016 18:41 [facility] Glucose, Serum 85 70 - 100 mg/dl 05/05/2016 18:41 [facility] Fasting? Unknown 05/05/2016 14:25 [facility] Blood specimen (specimen) BLOOD SPECIMEN / Unknown 05/05/2016 13:25 EDT 05/05/2016 14:24 EDT us Juve Pond MD CHEMISTRY & BLOOD GAS ORDERABLES Final Result [facility] [address] [place] [address] * HEMAGRAM AND DIFFERENTIAL (05/05/2016 13:25 EDT) WBC 6.53 4.0 - 12.4 K/cmm 05/05/2016 15:10 [facility] RBC 4.13 3.86 - 5.04 M/cmm 05/05/2016 15:10 [facility] Hemoglobin 12.8 11.6 - 15.2 gm/dl 05/05/2016 15:10 [facility] HCT 37.5 34.9 - 44.4 % 05/05/2016 15:10 [facility] MCV 91 81 - 98 fl 05/05/2016 15:10 [facility] MCH 31.0 26.7 - 33.3 pg 05/05/2016 15:10 [facility] MCHC 34.1 32.1 - 35.9 gm/dl 05/05/2016 15:10 [facility] RDW-CV 12.3 11.7 - 14.6 % 05/05/2016 15:10 [facility] RDW-SD 40.6 37.6 - 50.3 fl 05/05/2016 15:10 [facility] PLT 324 141 - 377 K/cmm 05/05/2016 15:10 [facility] MPV 10.3 9.5 - 12.7 fl 05/05/2016 15:10 [facility] % Neutrophils 39.2 % 05/05/2016 15:10 [facility] % Lymphocytes 47.8 % 05/05/2016 15:10 [facility] % Monocytes 9.6 % 05/05/2016 15:10 [facility] % Eosinophils 2.6 % 05/05/2016 15:10 [facility] % Basophils 0.6 % 05/05/2016 15:10 [facility] % Immature Grans 0.2 % 05/05/2016 15:10 [facility] ABS Neutrophils 2.56 2.20 - 8.85 K/cmm 05/05/2016 15:10 [facility] ABS Lymphs 3.12 1.09 - 3.30 K/cmm 05/05/2016 15:10 [facility] ABS Monocytes 0.63 0.1 - 0.8 K/cmm 05/05/2016 15:10 [facility] ABS Eosinophils 0.17 0.03 - 0.61 K/cmm 05/05/2016 15:10 [facility] ABS Basophils 0.04 0.01 - 0.11 K/cmm 05/05/2016 15:10 [facility] ABS Immature Grans 0.01 0 - 0.06 K/cmm 05/05/2016 15:10 EDT [facility] Type of Diff: Automated 05/05/2016 15:10 EDT [facility] Blood specimen (specimen) BLOOD SPECIMEN / Unknown 05/05/2016 13:25 EDT 05/05/2016 14:24 EDT Juve Pond MD PACKAGES & DNA PROBE ORDERABLES Final Result [facility] [address] [place] [address] documented in this encounter Visit Diagnoses Diagnosis Uveitis- Primary Unspecified iridocyclitis Psoriasis Other psoriasis documented in this encounter Administered Medications Inactive Administered Medications - up to 3 most recent administrations Medication Order MAR Action Action Date Dose Rate Site acetaminophen (TYLENOL) tablet 325 mg 325 mg, oral, Once (Without Time Specified), 1 dose, Starting on Wed05/05/16 at 1345, Until Wed05/05/16 at 1315, Routine Given 05/05/2016 13:15 EDT 325 mg inFLIXimab (REMICADE) 300 mg in sodium chloride (NS) 0.9 % 250 mL IVPB 300 mg, intravenous, Administer over 120 Minutes, Once (Without Time Specified), 1 dose, Starting on Wed05/05/16 at 1345, Until Wed05/05/16 at 1600, Routine Rate Documented 05/05/2016 15:10 EDT 300 mg 125 mL/hr Rate Documented 05/05/2016 14:35 EDT 300 mg 125 mL/hr New Bag 05/05/2016 14:05 EDT 300 mg 125 mL/hr sodium chloride 0.9 % (NS) infusion at 25 mL/hr, intravenous, CONTINUOUS, Starting on Wed05/05/16 at 1345, Until Wed05/05/16 at 1825, Routine New Bag 05/05/2016 13:15 EDT 25 mL/hr documented in this encounter Orders Medications Ordered That Gus ht Not Have Been Administered Count Last Ordered Date First Ordered Date acetaminophen (TYLENOL) tablet 325-650 mg 1 05/05/2016 diphenhydrAMINE (BENADRYL) capsule 25 mg 1 05/05/2016 diphenhydrAMINE (BENADRYL) c apsule 25-50 mg 1 05/05/2016 diphenhydrAMINE (BENADRYL) i njection 25-50 mg 1 05/05/2016 methylPREDNISolone sodium WALLER CCINATE (SOLU-MEDROL) injection 50-100 mg 1 05/05/2016 documented in this encounter Care Teams Shooting Gallery Operator Relationship Specialty Start Date End Date Sofy Nicolas MD [address] [facility] [address] [place] [address] PCP - General 06/27/15 documented as of this encounter
--- OUTSIDE RECORDS SUMMARY | 2024-08-21 14:09 | XMS_ITS | Encounter Summary ---
Author Organization [facility] Address [address] [place] [address] Care Team Providers Care [employer] Home Economics Teacher Name Role Phone Nuvia Alejandra MD Primary Care Provider [phone] Reason for Visit * Reason Comments Skin Exam Abscesses and furunc les of the groin, buttocks, and proximal thighs Encounter Details Date Type Department Care Team (Late st Contact Info) Description 06/06/2015 9:45 EDT Office Visit [facility] Dermatology 3rd Floor [facility] [address], [place] [address] Komal Gaming MD [address] [place] [address] Furuncle of buttock (Primary Dx); Uveitis; Psoriasis; Abscess Social History Tobacco Use Types Packs/Day Years [...] documented in this encounter Discharge Diagnoses Diagnosis 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 Also apply around the anal area. Do this daily for seven days. documented in this encounter Ordered Prescriptions Prescription Sig Dispense Quantity Refills Last Filled Start Date End Date doxycycline (VIBRAMYCIN) 100 mg capsule Take 1 Cap by mouth 2 times daily for 7 days 14 Cap 0 06/06/2015 06/13/2015 documented in this encounter Progress Notes * Darya Perry MD - 06/06/2015 0914 EDT DERMATOLOGY OUTPATIENT CLINIC NOTE Chief Complaint Patient presents with ??? Skin Exam Abscesses and furuncles of the groin, buttocks, and proximal thighs Dermatologic History: 1. 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 Psoriasis - thought possibly to be secondary to Remicade Last Dermatology office visit: 06/01 SUBJECTIVE Ms. Bearden is a 20 y.o. female who presents for follow up for abscesses which were I&D on Jun 01. She has done well since the procedure to her groin and buttocks - the treated lesions are less painful and without drainage. She has developed some more spots on and surrounding umbilicus. She did not do bleach bathes over the weekend because she was afraid the areas would be too tender. She has been using the Hibiclens soap in the shower daily. For full Medical, Surgical, Family, and Social histories, please see the History section of this encounter in the electronic chart which I have personally reviewed. For Review of Systems, Medications and Allergies, please see those sections of this encounter in the electronic chart which I have also reviewed. She has a current medication list which includes the following prescription(s): doxycycline, infliximab, medroxyprogesterone, and tacrolimus. She is allergic to ciprofloxacin; clindamycin; and penicillins. OBJECTIVE VS: There were no vitals taken for this visit. Ms. Bearden is healthy, well developed, well-nourished and in no acute distress female sitting on the examination table with a normal affect. She is alert and oriented to person, place and time. She has Edmond type II skin. Cutaneous focused exam of the groin, buttocks, abdomen was performed. The dermatologic examination was normal with the addition of the following comments: A) posterior, inferior left buttock, open plaque with several centimeters of surrounding erythema, no drainage, fluctuance--minimal pain B) medial right groin: healing erythematous plaque s/p I&D C) johnna-umbilical furuncles D) Groin, buttocks, and thighs with scattered pink, scaly patches studded with 1-2 mm erythematous papules (improved since last week) IMPRESSION: 1. Recurrent abscesses, groin, buttocks - Overall improved from 06/01 PLAN: 1. Doxycycline 100mg bid for an additional week, sent prescription to pharmacy 2. Continue hibiclens washes, she can do bleach baths several times weekly if she is able to at herparents' home. She lives in a dormitory without a bath 3. Discussed using mupirocin to reduce staph aureus colonization; patient given instructions on howto do this daily intranasally and johnna-anally for one week out of every month for the next several months. She has mupirocin at home so will not prescribe today 4. Okay from our perspective to resume remicaide infusions 5. Follow up in two weeks to re-check. She will f/u as planned or in the interim should problems arise. Darya Perry MD 06/06/2015 9:14 I saw and examined the patient with the resident/fellow. I agree with the findings and plan of caredocumented in the resident's/fellow's note. Komal Gaming MD 06/06/2015 16:53 * Ean Farmer - 06/06/2015 0911 EDT Review of Systems Constitutional: Negative for fever, fatigue and unexpected weight change. HENT: Negative for mouth sores. Eyes: Negative for pain. Respiratory: Negative for cough and shortness of breath. Cardiovascular: Negative for chest pain and palpitations. Gastrointestinal: Negative for nausea, vomiting, abdominal pain, diarrhea, constipation and blood in stool. Genitourinary: Negative for dysuria, frequency and hematuria. Musculoskeletal: Negative for myalgias, joint swelling, arthralgias and muscle stiffness in the morning. Skin: Positive for rash. Neurological: Negative for numbness and headaches. Endo/Heme/Allergies: Does not bruise/bleed easily. Psychiatric/Behavioral: Negative for sleep disturbance. The patient is not nervous/anxious. Ean Farmer 06/06/2015 9:11 documented in this encounter Plan of Treatment Not on file documented as of this encounter Visit Diagnoses Diagnosis Furuncle of buttock- Primary Carbuncle and furuncle of buttock Uveitis Unspecified iridocyclitis Psoriasis Other psoriasis Abscess Cellulitis and abscess of unspecified site documented in this encounter Discontinued Medications Medication Sig Discontinue Reason Start Date End Da te doxycycline (VIBRAMYCIN) 100 mg capsule Take 1 Cap by mouth 2 times daily for 7 days Reorder 05/31/2015 06/06/2015 documented as of this encounter Care Teams [employer] Home Economics Teacher Relationship Specialty Start Date End Date Nuvia Alejandra MD [address] [place] [address] PCP - General Primary Care 12/19/14 06/26/15 documented as of this encounter
--- OUTSIDE RECORDS SUMMARY | 2024-08-21 14:09 | XMS_ITS | Encounter Summary ---
Author Organization [facility] Address [address] [place] [address] Care Team Providers Care Food Clerk Name Role Phone Nuvia Alejandra MD Primary Care Provider [phone] Encounter Details Date Type Department Care Team (Late st Contact Info) Description 06/05/2015 Results Only [facility] Rheumatology & Immunology - [address] [id number] Juve Pond Chi, MD [address] [place] [address], [address] [place] [address] Social History Tobacco Use Types [...] 06/05/2015 15:59 EDT documented in this encounter Plan of Treatment Not on file documented as of this encounter Procedures Procedure Name Priority Date/Time Associated Diagnosis Comments MULTIPLE DOC ORDERS Routine 06/05/2015 1 6:32 EDT documented in this encounter Results * MULTIPLE DOC ORDERS (06/05/2015 16:32 EDT) Multiple Doc Orders This report contains lab results ordered 06/05/2015 16:33 EDT [facility] Comment: by another provider which were collected and processed simultaneously with the orders you requested. If you have any questions, please call Customer Service at [phone]. TOPOGRAPHY UNKNOWN / Unknown 06/05/2015 16:32 EDT 06/05/2015 16:58 EDT us Juve Pond MD CHEMISTRY & BLOOD GAS ORDERABLES Final Result [facility] [address] [place] [address] documented in this encounter Visit Diagnoses Not on filedocumented in this encounter Care Teams Food Clerk Relationship Specialty Start Date End Date Nuvia Alejandra MD [address] [place] [address] PCP - General Primary Care 12/19/14 06/26/15 documented as of this encounter
--- OUTSIDE RECORDS SUMMARY | 2024-08-21 14:09 | XMS_ITS | Encounter Summary ---
Author Organization [facility] Address [address] [place] [address] Care Team Providers Care Business Development Specialist Name Role Phone Sofy Nicolas MD Primary Care Provider [phone] Encounter Details Date Type Department Care Team (Late st Contact Info) Description 03/11/2017 Results Only [facility] [phone] Johnson Edmond, [address] [place] [address] Social History Tobacco Use Types Packs/Day Years [...] Date/Time Associated Diagnosis Comments SURGICAL PATHOLOGY Routine 03/11/2017 19 :49 EDT documented in this encounter Results * SURGICAL PATHOLOGY (03/11/2017 19:49 EDT) Pathology Report: SURGICAL PATHOLOGY REPORT Reports generated via electronic interface contain original data; however they are lacking the format of the original report. Caution should be taken when reading/interpret ing unformatted reports. Name: ? CORNEL BEARDEN ? Accession #: ? [id number] ? : ? 1995 (Age: 22) ??F ? Collect Date: ? 03/11/2017 ? Location: ? [facility] ? Receive Date: ? 03/11/2017 ? Provider: JOHNSON EDMOND DO Copy to: ? 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 ?? Document reviewed and electronically signed by: SANDEE STACK MD Report ??Date: 03/15/2017 13:00 By the signature above, the attending physician certifies that he/she has personally conducted a gross and/or microscopic examination of the described specimens and rendered or confirmed the above diagnosis. Specimen(s) Received: Intraoral mass right buccal mucosa Clinical History: Lower lip buccal mass, likely mucocele; clinical diagnosis code: D49.0 Gross Description: ? Received in formalin labelled with proper patient identification (initials B, R) and lower lip buccal mucosa are irregular soft loyd-white rubbery nodular tissues that range from 0.4 x 0.3 x 0.1 cm to 0.9 x 0.7 x 0.5 cm. The larger specimen has an overlying elliptical excision of skin that measures 0.7 x 0.5 x 0.1 cm. The smaller specimens are submitted intact in 1 and the larger specimen is bisected and entirely submitted in 2. Emily Hodges 03/12/2017 8:25 AM End of Report [facility] 03/11/2017 19:4 9 EDT 03/11/2017 19:49 EDT us Johnson Edmond DO PATHOLOGY ORDERABLES Fi nal Result [facility] [address] [place] [address] documented in this encounter Visit Diagnoses Not on filedocumented in this encounter Care Teams Business Development Specialist Relationship Specialty Start Date End Date Sofy Nicolas MD 1 [facility] [address] [place] [address] PCP - General 06/27/15 documented as of this encounter
--- OUTSIDE RECORDS SUMMARY | 2024-08-21 14:09 | XMS_ITS | Encounter Summary ---
Author Organization [facility] Address [address] [place] [address] Care Team Providers Care Hoop Bender Tank Name Role Phone Sofy Nicolas MD Primary Care Provider [phone] Reason for Visit * Reason Onset Date Comments Infusion 02/10/2017 Remicade Encounter Details Date Type Department Care Team ([facility] st Contact Info) Description 02/10/2017 Orders Only [facility] Rheumatology & Immunology - [facility] [address] [place], [place] [phone] Samia Parekh RN Social History Tobacco Use Types Packs/Day Years [...] on filedocumented in this encounter Care Teams Hoop Bender Tank Relationship Specialty Start Date End Date Sofy Nicolas MD 1 [facility] [address] [place] [phone] PCP - General 06/27/15 documented as of this encounter
--- OUTSIDE RECORDS SUMMARY | 2024-08-21 14:09 | XMS_ITS | Encounter Summary ---
Author Organization [facility] Address [address] [place] [address] Care Team Providers Care Watchguard Name Role Phone Sofy Nicolas MD Primary Care Provider [phone] Reason for Visit * Reason Onset Date Comments Appointment Related 11/15/2015 3.23.16 Infusion 11/15/2015 Remicade Encounter Details Date Type Department Care Team ([facility] st Contact Info) Description 11/15/2015 Telephone [facility] Rheumatology & Immunology - [address] [address] Juve Pond Chi, MD [address] [place] [address], [address] [place] [address] Appointment Related (11.20.15); Infusion (Remicade) Social History Tobacco Use Types Packs/Day Years [...] shopping? Answer Date of Assessment Author No 10/02/2015 8:06 EST documented as of this encounter Mental Status * Because of a physical, mental, or emotional condition, does this person have serious difficulty concentrating, remembering, or making decisions? Answer Entry Date Author No 10/02/2015 8:06 EST documented in this encounter Miscellaneous Notes * Telephone Encounter - Crystal Mai RN - 11/15/2015 1004 EDT Pt returned call, stated able to reschedule infusion for 11/21 at 8:30. Noted pt had nasal congestion with a cough while speaking on the phone. Inquired if pt had a cold, pt stated developed cold sx approx 1 and 1/2 weeks ago after returning from [place]. Sx are now improving, stated slight productive cough remains but is feeling much better. Have rescheduled infusion for 11/21, sx should be completely resolved by that date. Pt verbalized understanding and agreeable. Pharmacy notified of rescheduled appt. * Telephone Encounter - Crystal Mai RN - 11/15/2015 0928 EDT Left message that there is nothing available on 11/19 but have openings on 11/21 at 8:30 OR 11/25 at 8:00. Requested pt to return call to reschedule infusion appt. * Telephone Encounter - Yulisa Ball - 11/15/2015 0916 EDT Reason for Call: Appointment Related and Infusion Summary/Symptoms: Per pt, needs to discuss rescheduling 3.23 appt to different time that day or a different day all together. Pt requesting a call back today when a moment. Yulisa Ball 11/15/2015 9:16 documented in this encounter Plan of Treatment Not on file documented as of this encounter Visit Diagnoses Not on filedocumented in this encounter Care Teams Watchguard Relationship Specialty Start Date End Date Sofy Nicolas MD 1 [facility] [address] [place] [phone] PCP - General 06/27/15 documented as of this encounter
--- OUTSIDE RECORDS SUMMARY | 2024-08-21 14:09 | XMS_ITS | Encounter Summary ---
Author Organization [facility] Address [address] [place] [address] Care Team Providers Care Manufacturing Systems Engineer Name Role Phone Sofy Nicolas MD Primary Care Provider [phone] Reason for Referral * Medication Prior Authorization (Routine) - Authorized Specialty Diagnoses / Procedures [facility] Referred To Contact Diagnoses Psoriatic arthropathy ([facility]) Uveitis Juve Pond Chi, MD Phone: tel: fax: Referral ID Status Reason Start Date Expiration Date Visits Requested Visits Authorized Authorized Medication Prior Authorization 04/06/2016 1 0 Question Answer Medication to be Prior Authorized: Remicade, to be done at [facility] during school year, next scheduled infusion 05/05/16 Comments The purpose of this consult request is to inform the scheduling staff that a medication needs to be prior-authorized before it is prescribed and/or administered. Reason for Visit * Reason Onset Date Comments Appointment Related 03/31/2016 infusion Encounter Details Date Type Department Care Team ([facility] Contact Info) Description 03/31/2016 Telephone [facility] Rheumatology & Immunology - [address] [address] Jvue Pond Chi, MD [address] [place] [address], [address] [place] [address] Appointment Related (infusion) Social History Tobacco Use Types Packs/Day Years [...] * Telephone Encounter - Key Lagos - 04/07/2016 1200 EDT Request submitted to insurance. * Telephone Encounter - Crystal Mai RN - 04/06/2016 1601 EDT Prior auth ordered for Remicade, to be given at [facility] during school year, next scheduled infusion 05/05/16. * Telephone Encounter - Crystal Mai RN - 03/31/2016 1524 EDT Spoke with pt who stated is in [place] for the school year and requested to schedule next infusion, due in 6 weeks. Receives Remicade every 8 weeks. Pt previously scheduled for FU with Dr. Pond on 04/30, pt agreeable to have infusion the following week on 05/05 at 1:00. Unable to coordinate appts. Spoke with yudy Mackey. May need to re-auth medication as it will be given at this facility.Last infusion done at [facility] and new auth was obtained for that facility. Key to update nurses regarding any issues with prior auth. * Telephone Encounter - Diamante Moon - 03/31/2016 0930 EDT Reason for Call: Appointment Related Summary/Symptoms: Patient is calling to schedule an appointment for an infusion. Diamante Moon 03/31/2016 9:30 documented in this encounter Plan of Treatment Scheduled Referrals Name Type Priority Associated Diagnoses Order Schedule AMB MEDICATION PRIOR AUTHORIZATION Outpatient Referral Routine Psoriatic arthropathy ([facility]) Uveitis Ordered: 04/06/2016 documented as of this encounter Visit Diagnoses Diagnosis Psoriatic arthropathy ([facility])- Primary Psoriatic arthropathy Uveitis Unspecified iridocyclitis documented in this encounter Care Teams Manufacturing Systems Engineer Relationship Specialty Start Date End Date Sofy Nicolas MD 1 [facility] [address] [place] [address] PCP - General 06/27/15 documented as of this encounter
--- OUTSIDE RECORDS SUMMARY | 2024-08-21 14:09 | XMS_ITS | Encounter Summary ---
Author Organization [facility] Address [address] [place] [address] Care Team Providers Care Senior Animal Trainer Name Role Phone Sofy Nicolas MD Primary Care Provider [phone] Encounter Details Date Type Department Care Team (Latest Contact Info) Description 03/11/2017 12:39 EDT - 03/11/2017 23:59 EDT Hospital Encounter [address] [address] Unknown, Provider, MD Discharge Disposition: Home or [...] 04/30/2016 8:01 EDT documented in this encounter Medications at Time [...] Code Departure Means Destination Home or Self [place] documented in this encounter Plan of Treatment Not on file documented as of this encounter Visit Diagnoses Not on filedocumented in this encounter Care Teams Senior Animal Trainer Relationship Specialty Start Date End Date Sofy Nicolas MD 1 [facility] [address] [place] [address] PCP - General 06/27/15 documented as of this encounter
--- OUTSIDE RECORDS SUMMARY | 2024-08-21 14:09 | XMS_ITS | Encounter Summary ---
Author Organization [facility] Address [address] [place] [address] Care Team Providers Care Beam Warper Name Role Phone Sofy Nicolas MD Primary Care Provider [phone] Reason for Visit * Reason Onset Date Comments Appointment Related 12/28/2016 Encounter Details Date Type Department Care Team (Late st Contact Info) Description 12/28/2016 Telephone [facility] Pediatric Primary Care [facility] [address] [place], [place] [id number] Sofy Nicolas MD 1 [facility] [address] [place] [address] Appointment Related Social History Tobacco Use Types [...] encounter Miscellaneous Notes * Telephone Encounter - Audrey Garcia - 12/28/2016 1623 EDT Spoke with [place] has not had HS and is not being seen by any other Primary Physician, EG is here PCP. Scheduled HS at time of next Depo 03/16 documented in this encounter Plan of Treatment Not on file documented as of this encounter Visit Diagnoses Not on filedocumented in this encounter Care Teams Beam Warper Relationship Specialty Start Date End Date Sofy Nicolas MD 1 [facility] [address] [place] [address] PCP - General 06/27/15 documented as of this encounter
--- OUTSIDE RECORDS SUMMARY | 2024-08-21 14:09 | XMS_ITS | Encounter Summary ---
Author Organization [facility] Address [address] [place] [address] Care Team Providers Care Stockroom Supervisor Name Role Phone Sofy Nicolas MD Primary Care Provider [phone] [phone] Reason for Visit * Reason Comments Well Child here alone--22 year check Encounter Details Date Type Department Care Team (Latest Contact Info) Description 03/16/2017 13:30 EDT Health Supervision [facility] Pediatric Primary Care [address] [phone] Sofy Nicolas MD 1 [facility] [address] [place] [address] Surveillance for Depo-Provera contraception (Primary Dx); Encounter for routine child health examination without abnormal findings; Encounter for dietary counseling and surveillance Discharge Disposition: Auto Discharge Social History Tobacco [...] Sign Reading Time Taken Comments Blood Pressure 112/66 03/16/2017 1341 EDT Pulse 68 03/16/2017 1341 EDT Temperature - - Respiratory Rate - - Oxygen Saturation - - Inhaled Oxygen Concentration - - Weight 57.6 kg (127 lb) 03/16/2017 1341 EDT Height 168.6 cm (5' 6.38) 03/16/2017 1341 EDT Body Mass Index 20.27 03/16/2017 1341 EDT documented in this encounter Functional Status [...] 8:01 EDT documented in this encounter Discharge Disposition Disposition Code Departure Means Destination Auto Discharge documented in this encounter Progress Notes * Wisam Arevalo - 03/16/2017 1405 EDT WELL CHILD CHECK 13-21 YEARS Orlando Bearden is a 22 y.o. female who was seen today for her well child visit and Depo-Provera injection Vitals: BP 112/66 Pulse 68 Ht 168.6 cm (66.38) Wt 57.6 kg (127 lb) BMI 20.27 kg/m2 Facility age limit for growth percentiles is 20 years. Facility age limit for growth percentiles is 20 years. Facility age limit for growth percentiles is 20 years. Growth percentile SmartLinks can only be used for patients less than 20 years old. Active Medications: Outpatient Prescriptions Marked as Taking for the 03/16/17 encounter (Health Supervision) with Sofy Nicolas MD Medication Sig Dispense Refill ??? chlorhexidine (HIBICLENS) 4 % liquid Apply topically daily 960 mL 11 ??? inFLIXimab (REMICADE) 100 mg injection Inject 300 mg into the vein every 8 weeks ??? medroxyPROGESTERone (DEPO-PROVERA) 150 mg/mL injection Inject 1 mL into the muscle every 12 weeks. 1 mL 0 ??? TACROLIMUS (PROTOPIC TOP) Apply topically as needed. Current Facility-Administered Medications for the 03/16/17 encounter (Health Supervision) with Sofy Nicolas MD Medication Dose Route Frequency Provider Last Rate Last Dose ??? medroxyPROGESTERone (DEPO-PROVERA) injection 150 mg 150 mg intramuscular Q3 MONTHS Sofy Nicolas MD 150 mg at 03/16/17 8779 Active Problems: Patient Active Problem List Diagnosis Date Noted ??? Staph skin infection 06/05/2015 Priority: Medium ??? Uveitis 04/13/2014 Priority: Medium ??? Psoriasis 04/13/2014 Priority: Medium ??? Slow transit constipation 06/27/2015 ??? Depressed mood 11/30/2014 ??? Chronic back pain 11/30/2014 ??? Surveillance for Depo-Provera contraception 10/11/2014 ??? High risk medication use 07/04/2014 Immunization History: Immunization History Administered Date(s) Administered ? ? DTaP Vaccine <7YO IM 1996, 1996, 1996, 06/04/1997, 12/16/2000 ??? HPV Quadrivalent Recombinant Vaccine 04/23/2008, 07/17/2008, 05/13/2009 ??? Hepatitis A 11/03/2012 ??? Hepatitis B 1996, 1996, 1996 ??? Hib 1996, 1996, 1996, 06/04/1997 ??? Influenza (whole) 08/20/2006, 07/04/2007, 07/17/2008, 06/03/2009, 08/06/2010, 11/03/2012 ??? MMR Vaccine SQ 06/04/1997, 12/16/2000 ??? Meningococcal Conjugate Vaccine (Menactra) 4-Valent IM 04/23/2008, 12/20/2013 ??? PolioVirus Vaccine IPV SQ 1996, 1996, 1996, 12/16/2000 ? ? Tdap Vaccine =>7YO IM 04/23/2008 ??? Varicella (Chickenpox) SQ 06/04/1997 Allergies: Allergies Allergen Reactions ??? Ciprofloxacin Hives ??? Clindamycin ??? Penicillins Interval History: Had surgery on her lower lip to remove a mucocele last (). Mucocele formed after shebit her lip while eating 4 mo ago. No issues thus far, has some pain, but hasn't need medications. Denies fevers, chills or signs of infections. Previsit questionnaire(s) not reviewed as patient declined to fill them out Other interval care received outside this practice: Yes, [facility]o-Provera . Reports negative HIV and CT/GC testing. Social History & Review of Systems: Home: Spends time at home and also has an apt for her self. 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 Activities: Screen time: 1 hrs/day Exercise: Hikes occasionally Sleep: Normal sleep patterns. Diet/Nutrition: Milk, Meat and Variety. Dental: Brushes twice a day; Sees dentist: yes. Sexuality: Last sexually encounter was in April of 2016, she was screened for STIs shortly after this time. Interested in continuing contraception with Depo-Provera. Discussed contraception and safe sex. Likes method. Behavioral Health Screen: Tobacco use: History Smoking Status ??? Never Smoker Smokeless Tobacco ??? Never Used CRAFFT Alcohol: Uses alcohol occasionally; Once a month. Marijuana: Denies Marijuana Use. Other: Denies other drug use. Car: Has not ridden in a car with someone under the influence. Interpretation: Not concerning for substance abuse. PHQ-9 Total Score: 0 Intervention: no intervention needed. Repeat in 1 year. Safety: Use seatbelt and helmet (PHAT). All systems reviewed and are normal. Family History: Plan: No interval change Family History Problem Relation Age of Onset ??? Ankylosing spondylitis Neg Hx ??? Arthritis-Rheumatoid Neg Hx ??? Inflammatory Bowel Disease Neg Hx ??? Psoriasis Neg Hx ??? Psoriatic arthritis Neg Hx ??? Rheumatologic Disease Neg Hx ??? Scleroderma Neg Hx ??? SLE Neg Hx ??? Ulcerative Colitis Neg Hx ??? Crohn's Disease Neg Hx Past Medical History: Plan: No interval change Past Medical History: Diagnosis Date ??? Hearing difficulty ??? Joint pain ??? Psoriasis started on remicade ??? Varicella ??? Vision abnormalities Physical Exam: Plan: Growth parameters are noted and are appropriate for age. General: Alert and No apparent distress Growth: Normal interval growth Head/Neck: Supple, No adenopathy and Normal thyroid Eyes: ALTHEA Ears: Canals clear, TMs clear and Light reflex present Nose:: Nares patent and No discharge Mouth: Normal dentition, MMM and Healing wound with intact suture on the R lower lip from mucocele surgery. No drainage seen. Nodes: No cervical Adenopathy or Tenderness Chest: BS Clear/ R=L and No retractions CVS: RRR, No Murmur and Normal Pulses Abdomen: Soft, Non-tender, No HSM and No mass Neuro: Normal tone, reflexes and strength Assessment & Plan: Plan: Orlando was seen today for well child. Diagnoses and all orders for this visit: Surveillance for Depo-Provera contraception Comments: -Recieved Depo-Provera today in clinic -Follow-up with Nurse visit in 12 wk -Follow-up with Dr. Nicolas in 24 wk Encounter for routine child health examination without abnormal findings Encounter for dietary counseling and surveillance Other orders - medroxyPROGESTERone (DEPO-PROVERA) injection 150 mg; Inject 1 mL into the muscle every 3 months. Normal growth and pubertal development Immunizations reviewed and administered as needed Fit for competitive sports No limitations Follow-up for a nurse visit in 12 weeks for Depo-Provera and with Dr. Nicolas in 24 weeks for Depo-Provera and PAP smear as is now 22yo. To continue routine rheumatology f/u No new partners since last STI screen Case Management (Medicaid only - yearly): N/A. Crude Oil Driver was not used. The following anticipatory guidance topics were reviewed with the family: Health: Alcohol. Safety: Seatbelt/Driving and Helmet. Sexuality: STDs and Safe sex. Anticipatory guidance educational materials given to the family: No Enrollment in MyHealth: MyHealth was not discussed at this visit. Wisam Arevalo MD PGY1 Department of Pediatrics Pager Number: [phone] ATTESTATION: I saw and examined the patient. I agree with the resident's findings and plans as documented above and edited as necessary. Sofy Nicolas MD 03/17/2017 16:50, Adolescent Medicine documented in this encounter Plan of Treatment Not on file documented as of this encounter Visit Diagnoses Diagnosis Surveillance for Depo-Provera contraception- Primary Surveillance of other previously prescribed contraceptive method Encounter for routine child health examination without abnormal findings Routine infant or child health check Encounter for dietary counseling and surveillance Dietary surveillance and counseling documented in this encounter Administered Medications Inactive [...] mg Left Deltoid documented in this encounter Orders Medications Ordered That Gus ht Not Have Been Administered Count Last Ordered Date First Ordered Date medroxyPROGESTERone (DEPO-OK OVERA) injection 150 mg 1 03/16/2017 documented in this encounter Care Teams Stockroom Supervisor Relationship Specialty Start Date End Date Sofy Nicolas MD 1 [facility] Level [address] [place] [address] PCP - General 06/27/15 documented as of this encounter
--- OUTSIDE RECORDS SUMMARY | 2024-08-21 14:09 | XMS_ITS | Encounter Summary ---
Author Organization [facility] Address [address] [place] [address] Care Team Providers Care Automobile Detailer Name Role Phone Sofy Nicolas MD Primary Care Provider [phone] Reason for Visit * Reason Comments Infusion Remicade every 8 wee ks Encounter Details Date Type Department Care Team ([facility] st Contact Info) Description 07/02/2016 13:00 EDT Office Visit [facility] Rheumatology & Immunology - [address] [phone] Unknown, Provider, MD Pond, Juve An MD [address] [place] [address], [address] [place] [address] Assoc, Rheum Health Uveitis (Primary [...] Sign Reading Time Taken Comments Blood Pressure 109/66 07/02/2016 1615 EDT Pulse 61 07/02/2016 1615 EDT Temperature 37.2 ??C (98.9 ??F) 07/02/2016 1615 EDT Respiratory Rate - - Oxygen Saturation - - Inhaled Oxygen Concentration - - Weight 58.1 kg (128 lb) 07/02/2016 1302 EDT Height 168.3 cm (5' 6.25) 07/02/2016 1302 EDT Body Mass Index 20.5 07/02/2016 1302 EDT [...] * Patient Instructions* Mali Brito RN - 07/02/2016 13:00 EDT Infusion Therapy Visit Intravenous Biologic [...] medication therapy, please call our office at [phone] or toll free at ; Ext [phone]. For additional educational information on arthritis you may go to the Arthritis Foundation as a resource. The web link is www.arthritis.org. documented in this encounter Progress Notes * Mali Brito RN - 07/02/2016 1300 EDT Biologic Infusion Therapy Infliximab (Remicade) every 8 weeks Patient???s last infusion was tolerated well. Patient is free of signs and symptoms of infection. No recent or upcoming surgery scheduled. Premedication administered? Yes 325mg acetaminophen PO Pt declined 25mg diphenhydraminePO See Facility Administered Medication History for pre-med and infusion documentation. Difficult IV start- 3 unsuccessful attempts in left hand, left wrist, right forearm. Started in right medial AC. Blood Drawn: No Patient EducationTopic: Remicade Method: Verbal Taught to: Patient Barriers: None Outcomes: independent and verbalized understanding Today's infusion was tolerated well by the patient. Dose Administered: 300mg Post infusion instruction provided to patient. Patient to call office for any adverse effects. I was supervised by Juve Pond MD who was present and immediately available in the office suite. MALI BRITO RN 07/02/2016 14:25 documented in this encounter Plan of Treatment [...] Time Specified), 1 dose, Starting on Belinda 07/02/16 at 1330, Until Belinda 07/02/16 at 1304, RoutineIndications:Uveitis,Psor iasis Given 07/02/2016 13:04 EDT 325 mg inFLIXimab (REMICADE) 300 mg in sodium chloride (NS) 0.9 % 250 mL IVPB 300 mg, intravenous, Administer over 120 Minutes, Once (Without Time Specified), 1 dose, Starting on Belinda 07/02/16 at 1330, Until Belinda 07/02/16 at 1612, RoutineIndications:Uveitis,Psor iasis New Bag 07/02/2016 14:15 EDT 300 mg 125 mL/hr sodium chloride 0.9 % (NS) infusion at 25 mL/hr, intravenous, CONTINUOUS, Starting on Belinda 07/02/16 at 1330, Until Belinda 07/02/16 at 1842, RoutineIndications:Uveitis,Psor iasis New Bag 07/02/2016 14:12 EDT 25 mL/hr documented in this encounter Orders Medications Ordered That Gus ht Not Have Been Administered Count Last Ordered Date First Ordered Date acetaminophen (TYLENOL) tablet 325-650 mg 1 07/02/2016 diphenhydrAMINE (BENADRYL) capsule 25 mg 1 07/02/2016 diphenhydrAMINE (BENADRYL) c apsule 25-50 mg 1 07/02/2016 diphenhydrAMINE (BENADRYL) i njection 25-50 mg 1 07/02/2016 methylPREDNISolone sodium WALLER CCINATE (SOLU-MEDROL) injection 50-100 mg 1 07/02/2016 documented in this encounter Care Teams Automobile Detailer Relationship Specialty Start Date End Date Sofy Nicolas MD 1 [facility] [address] [place] [phone] PCP - General 06/27/15 documented as of this encounter
--- OUTSIDE RECORDS SUMMARY | 2024-08-21 14:09 | XMS_ITS | Encounter Summary ---
Author Organization [facility] Address [address] [place] [address] Care Team Providers Care Needle Punch Machine Operator Helper Name Role Phone Nuvia Alejandra MD Primary Care Provider [phone] Reason for Visit * Reason Comments Infusion Remicade every 8 wee ks Encounter Details Date Type Department Care Team (Late st Contact Info) Description 06/06/2015 10:30 EDT Office Visit [facility] Rheumatology & Immunology - [address] [address] Unknown, Provider, Kristie Booth MD [address] [place] [address], [address] [place] [address] Assoc, Rheum Health Uveitis (Primary [...] Sign Reading Time Taken Comments Blood Pressure 110/62 06/06/2015 1335 EDT Pulse 65 06/06/2015 1335 EDT Temperature 36.8 ??C (98.2 ??F) 06/06/2015 1335 EDT Respiratory Rate - - Oxygen Saturation - - Inhaled Oxygen Concentration - - Weight 58.5 kg (129 lb) 06/06/2015 1055 EDT Height 168.6 cm (5' 6.38) 06/06/2015 1055 EDT Body Mass Index 20.58 06/06/2015 1055 EDT documented in this encounter Functional Status [...] documented in this encounter Discharge Diagnoses Diagnosis L40.9 Psoriasis, unspecified-L40.9[ICD-10-CM] 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 For additional educational information on arthritis you may go to the Arthritis Foundation as a resource. The web link is www.arthritis.org. documented in this encounter Progress Notes * Mali Brito RN - 06/06/2015 1140 EDT Biologic Infusion Therapy Infliximab (Remicade) every 8 weeks Patient???s last infusion was tolerated well. Patient is free of signs and symptoms of infection. No recent or upcoming surgery scheduled. Patient seen by Dermatology today prior to infusion appt for recurring furuncles. Called Dermatology, spoke with Carmen who consulted with Dr. Gaming. Per Carmen, Dr. Gaming OK'd infusion today. Notified Dr. Pond who is agreeable. Also reported that pt requested to hold Benadryl PO for pre-med as it causes extreme tiredness (all day). Per Dr. Pond, OK to hold Benadryl, will give as needed ifpt develops medication reaction sx. Pt agreeable to take Benadryl if sx occur. Premedication administered? Yes See Facility Administered Medication History for pre-med and infusion documentation. Blood Drawn: No Patient EducationTopic: Remicade Method: Verbal Taught to: Patient Barriers: None Outcomes: independent and verbalized understanding Today's infusion was tolerated well by the patient. Dose Administered: 300mg Post infusion instruction provided to patient. Patient to call office for any adverse effects. I was supervised by Kristie Mckeon MD who was present and immediately available in the office suite. MALI BRITO RN 06/06/2015 11:40 documented in this encounter Plan of Treatment [...] Time Specified), 1 dose, Starting on Belinda 06/06/15 at 1115, Until Belinda 06/06/15 at 1100, RoutineIndications:Uveitis,Psor iasis Given 06/06/2015 11:00 EDT 325 mg inFLIXimab (REMICADE) 300 mg in sodium chloride (NS) 0.9 % 250 mL IVPB 300 mg, intravenous, Administer over 120 Minutes, Once (Without Time Specified), 1 dose, Starting on Belinda 06/06/15 at 1115, Until Belinda 06/06/15 at 1331, RoutineIndications:Uveitis,Psor iasis New Bag 06/06/2015 11:35 EDT 300 mg 125 mL/hr sodium chloride 0.9 % (NS) infusion at 25 mL/hr, intravenous, CONTINUOUS, Starting on Bleinda 06/06/15 at 1115, Until Belinda 06/06/15 at 1559, RoutineIndications:Uveitis,Psor iasis New Bag 06/06/2015 11:35 EDT 25 mL/hr documented in this encounter Orders Medications Ordered That Gus ht Not Have Been Administered Count Last Ordered Date First Ordered Date acetaminophen (TYLENOL) tablet 325-650 mg 1 06/06/2015 diphenhydrAMINE (BENADRYL) c apsule 25-50 mg 1 06/06/2015 diphenhydrAMINE (BENADRYL) i njection 25-50 mg 1 06/06/2015 methylPREDNISolone sodium WALLER CCINATE (SOLU-MEDROL) injection 50-100 mg 1 06/06/2015 documented in this encounter Care Teams Needle Punch Machine Operator Helper Relationship Specialty Start Date End Date Nuvia Alejandra MD [address] [place] [id number] PCP - General Primary Care 12/19/14 06/26/15 documented as of this encounter
--- OUTSIDE RECORDS SUMMARY | 2024-08-21 14:09 | XMS_ITS | Encounter Summary ---
Author Organization [facility] Address [address] [place] [address] Care Team Providers Care Bodywork Therapist Name Role Phone Sofy Nicolas MD Primary Care Provider [phone] Reason for Visit * Reason Comments Contraception Pt is here with frie nd for a Depo injection. Encounter Details Date Type Department Care Team (Late st Contact Info) Description 12/28/2016 16:15 EDT Nurse Only [facility] Pediatric Primary Care - [address] [address] Unknown, Provider, Nurse, Proc [facility] SCOTT Sal Andrea Elizabeth, MD 1 [facility] 3 [place] [address] Encounter for surveillance of injectable contraceptive (Primary [...] Sign Reading Time Taken Comments Blood Pressure 118/72 12/28/2016 1619 EDT Pulse - - Temperature - - Respiratory Rate - - Oxygen Saturation - - Inhaled Oxygen Concentration - - Weight 59.4 kg (131 lb) 12/28/2016 1619 EDT Height - - Body Mass Index 20.98 [...] Refills Last Filled Start Date End Date medroxyPROGESTERone (DEPO-PROVERA) 150 mg/mL injection Inject 1 mL into the muscle every 12 weeks. 1 mL 12/28/2016 documented in this encounter Progress Notes * Komal Matthews RN - 12/28/2016 1615 EDT Date last pap: n/a Last Depo-Provera: 10/12/16 Side Effects if any: None, per pt. Serum HCG indicated? No Depo-Provera 150 mg IM given by: Komal Matthews RN Next appointment due 03/15/17-03/29/17 Pt agrees to schedule OV at this visit I was supervised by Domingo HERNANDES who was present and immediately available in the office suite. Komal Matthews RN 12/28/2016 16:18 documented in this encounter Plan of Treatment [...] 3 MONTHS, 4 doses, First dose on 12/28/16 at 1715, Last dose on Wed09/27/17 at 1715, Routine Given 12/28/2016 16:55 EDT 150 mg Left D eltoid documented in this encounter Discontinued Medications Medication Sig Discontinue Reason Start Date End Da te MEDROXYPROGESTERONE ACETATE (DEPO-PROVERA IM) Inject into the muscle. Reorder 12/28/2016 documented as of this encounter Care Teams Bodywork Therapist Relationship Specialty Start Date End Date Sofy Nicolas MD 1 [facility] [address] [place] [phone] PCP - General 06/27/15 documented as of this encounter
--- OUTSIDE RECORDS SUMMARY | 2024-08-21 14:09 | XMS_ITS | Encounter Summary ---
Author Organization [facility] Address [address] [place] [address] Care Team Providers Care Pension Examiner Name Role Phone Sofy Nicloas MD Primary Care Provider [phone] Reason for Visit * Reason Comments Clinic Admin Medications pt with Uveitis here for second Remicade infusion, 300mg. First infusion on 06/06 tolerated well. Encounter Details Date Type Department Care Team (Late st Contact Info) Description 08/01/2015 13:30 EST Office Visit [facility] Rheumatology & Immunology - [address] [address] Kristie Mckeon MD [address] [place] [phone] Juve Pond Chi, MD [address] [place] [phone] Assoc, Rheum Health Uveitis (Primary Dx); [...] Sign Reading Time Taken Comments Blood Pressure 112/56 08/01/2015 1635 EST Pulse 62 08/01/2015 1635 EST Temperature 36.9 ??C (98.4 ??F) 08/01/2015 1635 EST Respiratory Rate - - Oxygen Saturation [...] * Patient Instructions* Yancy Honeycutt RN - 08/01/2015 14:01 EST Infusion Therapy Visit Intravenous Biologic Medication [...] medication therapy, please call our office at [phone] or toll free at ; Ext [phone]. For additional educational information on arthritis you may go to the Arthritis Foundation as a resource. The web link is www.arthritis.org. documented in this encounter Progress Notes * Yancy Honeycutt RN - 08/01/2015 1402 EST Biologic Infusion Therapy Infliximab (Remicade) Patient???s last infusion was tolerated well. Patient is free of signs and symptoms of infection. No recent or upcoming surgery scheduled. Premedication administered? Yes See Facility Administered Medication [...] in the office suite. YANCY HONEYCUTT RN 08/01/2015 14:02 documented in this encounter Plan of Treatment [...] Time Specified), 1 dose, Starting on Belinda 08/01/15 at 1415, Until Belinda 08/01/15 at 1355, RoutineIndications:Uveitis ,Psoriasis Given 08/01/2015 13:55 EST 325 mg inFLIXimab (REMICADE) 300 mg in sodium chloride (NS) 0.9 % 250 mL IVPB 300 mg, intravenous, Administer over 120 Minutes, Once (Without Time Specified), 1 dose, Starting on Belinda 08/01/15 at 1415, Until Belinda 08/01/15 at 1635, RoutineIndications:Uveitis ,Psoriasis Rate Documented 08/01/2015 15:30 EST 300 mg 125 mL/hr Rate Documented 08/01/2015 15:00 EST 300 mg 125 mL/hr New Bag 08/01/2015 14:30 EST 300 mg 125 mL/hr sodium chloride 0.9 % (NS) infusion at 25 mL/hr, intravenous, CONTINUOUS, Starting on Belinda 08/01/15 at 1415, Until Belinda 08/01/15 at 1850, RoutineIndications:Uveitis,Psoriasis New Bag 08/01/2015 13:50 EST 25 mL/hr documented in this encounter Orders Medications Ordered That Gus ht Not Have Been Administered Count Last Ordered Date First Ordered Date acetaminophen (TYLENOL) tablet 325-650 mg 1 08/01/2015 diphenhydrAMINE (BENADRYL) capsule 25 mg 1 08/01/2015 diphenhydrAMINE (BENADRYL) c apsule 25-50 mg 1 08/01/2015 diphenhydrAMINE (BENADRYL) i njection 25-50 mg 1 08/01/2015 methylPREDNISolone sodium WALLER CCINATE (SOLU-MEDROL) injection 50-100 mg 1 08/01/2015 documented in this encounter Care Teams Pension Examiner Relationship Specialty Start Date End Date Sofy Nicolas MD 1 [facility] 3 [place] [phone] PCP - General 06/27/15 documented as of this encounter
--- OUTSIDE RECORDS SUMMARY | 2024-08-21 14:09 | XMS_ITS | Encounter Summary ---
Author Organization [facility] Address [address] [place] [address] Care Team Providers Care Perforator Operator Name Role Phone Sofy Nicolas MD Primary Care Provider +1 [phone] Reason for Visit * Reason Comments Contraception Depo Encounter Details Date Type Department Care Team ([facility] Contact Info) Description 07/27/2016 15:30 EST Nurse Only [facility] Pediatric Primary Care - [place] [address] [place] [address] Unknown, Provider, Nurse, Proc [facility] Juan Carlos Rolle, Paige Self MD Surveillance for Depo-Provera contraception (Primary Dx) Social [...] - - Weight 58.1 kg (128 lb) 07/27/2016 1544 EST Height - - Body Mass Index 20.5 [...] documented in this encounter Progress Notes * Graciela Chavez - 07/27/2016 1530 EST Date last pap: NA Last Depo-Provera: 05/11/2016. Side Effects if any: None reported. Serum HCG indicated? Not Indicated. Depo-Provera 150 mg IM given by: Graciela Chavez RN. Next appointment due 10/12/16-10/26/16 Pt arrives in good health for Depo admin. Pt is within correct time frame so no HCG is indicated. Pt reports no adverse side effects or concerns regarding depo. This RN admin Depo in R deltoid with no issue. Pt schedules next appt with [facility] upon check out and states no further needs at this time. I was supervised by Nano Chowdary MDwho was present and immediately available in the office suite. Graciela Chvaez RN 07/27/2016 15:48 documented in this encounter Plan of Treatment [...] Deltoid documented in this encounter Care Teams Perforator Operator Relationship Specialty Start Date End Date Sofy Nicolas MD 1 [facility] [address] [place] [id number] PCP - General 06/27/15 documented as of this encounter
--- OUTSIDE RECORDS SUMMARY | 2024-08-21 14:09 | XMS_ITS | Encounter Summary ---
Author Organization [facility] Address [address] [place] [address] Care Team Providers Care Licensing And Registration Director Name Role Phone Sofy Nicolas MD Primary Care Provider [phone] [phone] Reason for Visit * Reason Onset Date Comments Coordination Of Care 02/11/2016 Encounter Details Date Type Department Care Team ([facility] st Contact Info) Description 02/11/2016 Telephone [facility] Pediatric Primary Care [facility] [address] [place], [place] [id number] Sofy Nicolas MD 1 [facility] [address] [place] [address] Coordination Of Care Social History Tobacco Use Types Packs/Day [...] encounter Miscellaneous Notes * Telephone Encounter - Gianni Moralez, RN - 02/11/2016 0922 EDT Faxed note as requested. * Telephone Encounter - Katrina Mayer - 02/11/2016 0857 EDT Reason for Call: Injections Summary/Symptoms: Regarding depo-needs some documentation ,will Be getting next depo in [facility] Onset and Duration? na Appointment Offered? N/A Katrina Mayer 02/11/2016 8:57 documented in this encounter Plan of Treatment Not on file documented as of this encounter Visit Diagnoses Not on filedocumented in this encounter Care Teams Licensing And Registration Director Relationship Specialty Start Date End Date Sofy Nicolas MD 1 [facility] [address] [place] [address] PCP - General 06/27/15 documented as of this encounter
--- OUTSIDE RECORDS SUMMARY | 2024-08-21 14:09 | XMS_ITS | Encounter Summary ---
Author Organization [facility] Address [address] [place] [address] Care Team Providers Care Machine Tool Mechanic Name Role Phone Sofy Nicolas MD Primary Care Provider +1 [phone] Reason for Visit * Reason Comments Clinic Admin Medications pt with uveitis here for q 8 wk Remicade infusion of 300mg. Encounter Details Date Type Department Care Team (Late st Contact Info) Description 10/22/2016 8:00 EST Office Visit [facility] Rheumatology & Immunology - [address] [address] Unknown, Provider, MD Pond, Juve An MD [address] [place] [address], [address] [place] [address] Assoc, Rheum Health Uveitis (Primary [...] Sign Reading Time Taken Comments Blood Pressure 112/62 10/22/2016 1100 EST Pulse 62 10/22/2016 1100 EST Temperature 37.2 ??C (99 ??F) 10/22/2016 1100 EST Respiratory Rate - - Oxygen Saturation - - Inhaled Oxygen Concentration - - Weight 56.7 kg (125 lb) 10/22/2016 0810 EST Height - - Body Mass Index 20.02 07/02/2016 1302 EDT documented in this encounter [...] * Patient Instructions* Yancy Honeycutt RN - 10/22/2016 8:00 EST Infusion Therapy Visit Intravenous Biologic Medication [...] medication therapy, please call our office at [phone] or toll free at ; Ext [phone]. For additional educational information on arthritis you may go to the Arthritis Foundation as a resource. The web link is www.arthritis.org. documented in this encounter Progress Notes * Yancy Honeycutt RN - 10/22/2016 0800 EST Biologic Infusion Therapy Infliximab (Remicade) Patient???s last infusion was tolerated well. Patient is free of signs and symptoms of infection. No recent or upcoming surgery scheduled. Premedication administered? Yes - acetaminophen 325mg po, declined diphenhydramine. See Facility Administered Medication History for pre-med and infusion documentation. Blood Drawn: Yes - CBCD, CMP Patient EducationTopic: Remicade Method: Verbal Taught to: Patient Barriers: None Outcomes: verbalized understanding Today's infusion was tolerated well by the patient. Dose Administered: 300mg Post infusion instruction provided to patient. Patient to call office for any adverse effects. I was supervised by Juve Pond MD who was present and immediately available in the office suite. YANCY HONEYCUTT RN 10/22/2016 8:33 * Yancy Honeycutt RN - 10/22/2016 0800 EST Mailed the AVS to pt , with future appointments made after her discharge, due to [facility] being down. YANCY HONEYCUTT RN documented in this encounter Plan of Treatment Not on file documented as of this encounter Procedures Procedure Name Priority Date/Time Associated Diagnosis Comments COMPLETE BLOOD COUNT AND DIFFERENTIAL Routine 10/22/2016 8:07 EST Uveitis Psoriasis COMPREHENSIVE METABOLIC PANEL (CMP) Routine 10/22/2016 8:07 EST Uveitis Psoriasis documented in this encounter Results * (ABNORMAL) COMPREHENSIVE METABOLIC PANEL (CMP) (10/22/2016 8:07 EST) Potassium 4.7 3.5 - 5.0 mEq/L 10/22/2016 10:17 [facility] Comment: Slight hemolysis Hemolysis may elevate potassium result. Sodium 144 136 - 145 mEq/L 10/22/2016 10:17 [facility] Comment:Slight hemolysis Chloride 107 96 - 110 mEq/L 10/22/2016 10:17 [facility] Comment:Slight hemolysis CO2 24 22 - 32 mEq/L 10/22/2016 10:17 [facility] Comment: Slight hemolysis Note new reference range 06/16/16 Total Alkaline Phosphatase 64 38 - 126 U/L 10/22/2016 10:17 [facility] Comment: Slight hemolysis Hemolysis will decrease ALKP result Suggest re-evaluation if clinically indicated Bilirubin, Total 0.8 <1.4 mg/dl 10/22/19 17 10:17 [facility] Comment: Slight hemolysis Results may be affected due to hemolysis. AST 42 15 - 46 U/L 10/22/2016 10:17 [facility] Comment: Slight hemolysis Results may be affected due to hemolysis. ALT 49 <53 U/L 10/22/2016 10:17 [facility] Comment: Slight hemolysis Results may be affected due to hemolysis. Albumin 4.9 3.4 - 4.9 g/dl 10/22/2016 10:17 [facility] Comment: Slight hemolysis Results may be affected due to hemolysis. Total Protein 8.4(H) 6.3 - 8.2 g/dl 10/22/2016 10:17 [facility] Comment: Slight hemolysis Results may be affected due to hemolysis. Creatinine 0.61 0.52 - 1.04 mg/dl 10/22/2016 10:17 [facility] Comment:Slight hemolysis GFR, Calculated 131 >60 ml/min/1.7 3m2 10/22/2016 10:17 [facility] Comment: eGFR calculated using CKD-EPI equation for non Americans. Multiply eGFR by 1.16 for Americans. BUN 9(L) 10 - 26 mg/dl 10/22/2016 10:17 [facility] Comment: Slight hemolysis Results may be affected due to hemolysis. Calcium 9.6 8.5 - 10.5 mg/dl 10/22/2016 10:17 [facility] Comment:Slight hemolysis Calculated Calcium 8.9 8.5 - 10.5 mg/dl 10/22/2016 10:17 [facility] Comment: Note new formula for calculation in use 06/03/2016 Glucose, Serum 82 70 - 100 mg/dl 10/22/2016 10:17 [facility] Comment: Slight hemolysis Results may be affected due to hemolysis. Fasting? Unknown 10/22/2016 9:39 [facility] Blood specimen (specimen) BLOOD SPECIMEN / Unknown 10/22/2016 8:07 EST 10/22/2016 9:39 EST us Mickie Pond MD CHEMISTRY & BLOOD GAS ORDERABLES Final Result [facility] [address] [place] [address] * (ABNORMAL) HEMAGRAM AND DIFFERENTIAL (10/22/2016 8:07 EST) WBC 4.94 4.0 - 12.4 K/cmm 10/22/2016 9:48 [facility] RBC 4.38 3.86 - 5.04 M/cmm 10/22/2016 9:48 [facility] Hemoglobin 13.3 11.6 - 15.2 gm/dl 10/22/2016 9:48 [facility] HCT 38.6 34.9 - 44.4 % 10/22/2016 9:48 [facility] MCV 88 81 - 98 fl 10/22/2016 9:48 [facility] MCH 30.4 26.7 - 33.3 pg 10/22/2016 9:48 [facility] MCHC 34.5 32.1 - 35.9 gm/dl 10/22/2016 9:48 [facility] RDW-CV 12.2 11.7 - 14.6 % 10/22/2016 9:48 [facility] RDW-SD 39.9 37.6 - 50.3 fl 10/22/2016 9:48 [facility] PLT 305 141 - 377 K/cmm 10/22/2016 9:48 [facility] MPV 9.9 9.5 - 12.7 fl 10/22/2016 9:48 [facility] % Neutrophils 39.5 % 10/22/2016 9:48 [facility] % Lymphocytes 49.8 % 10/22/2016 9:48 [facility] % Monocytes 7.1 % 10/22/2016 9:48 [facility] % Eosinophils 3.0 % 10/22/2016 9:48 [facility] % Basophils 0.6 % 10/22/2016 9:48 [facility] % Immature Grans 0.0 % 10/22/2016 9:48 [facility] ABS Neutrophils 1.95(L) 2.20 - 8.85 K/cmm 10/22/2016 9:48 [facility] ABS Lymphs 2.46 1.09 - 3.30 K/cmm 10/22/2016 9:48 [facility] ABS Monocytes 0.35 0.1 - 0.8 K/cmm 10/22/2016 9:48 [facility] ABS Eosinophils 0.15 0.03 - 0.61 K/cmm 10/22/2016 9:48 [facility] ABS Basophils 0.03 0.01 - 0.11 K/cmm 10/22/2016 9:48 [facility] ABS Immature Grans 0.00 0 - 0.06 K/cmm 10/22/2016 9:48 [facility] Type of Diff: Automated 10/22/2016 9:48 [facility] Blood specimen (specimen) BLOOD SPECIMEN / Unknown 10/22/2016 8:07 EST 10/22/2016 9:39 EST us Juve Pond MD PACKAGES & DNA PROBE ORDERABLES Final Result Performing Organization Address City/State/[facility] Co de Phone Number [facility] [address] [place] [address] documented in this encounter Visit Diagnoses Diagnosis Uveitis- Primary Unspecified iridocyclitis Psoriasis Other psoriasis documented in this encounter Administered Medications Inactive Administered Medications - up to 3 most recent administrations Medication Order MAR Action Action Date Dose Rate Site acetaminophen (TYLENOL) tablet 325 mg 325 mg, oral, Once (Without Time Specified), 1 dose, Starting on Belinda 10/22/16 at 0830, Until Belinda 10/22/16 at 0815, RoutineIndications:Uveitis ,Psoriasis Given 10/22/2016 8:15 EST 325 mg inFLIXimab (REMICADE) 300 mg in sodium chloride (NS) 0.9 % 250 mL IVPB 300 mg, intravenous, Administer over 120 Minutes, Once (Without Time Specified), 1 dose, Starting on Belinda 10/22/16 at 0830, Until Belinda 10/22/16 at 1100, RoutineIndications:Uveitis ,Psoriasis Rate Documented 10/22/2016 10:00 EST 300 mg 125 mL/hr Rate Documented 10/22/2016 9:30 EST 300 mg 125 mL/hr New Bag 10/22/2016 8:55 EST 300 mg 125 mL/hr sodium chloride 0.9 % (NS) infusion at 25 mL/hr, intravenous, CONTINUOUS, Starting on Belinda 10/22/16 at 0830, Until Belinda 10/22/16 at 1443, RoutineIndications:Uveitis,Psoriasis New Bag 10/22/2016 8:20 EST 25 mL/hr documented in this encounter Historical Medications * This list may reflect changes made after this encounter. MEDROXYPROGESTERO NE ACETATE (DEPO-PROVERA IM) Inject into the muscle. 12/28/2016 added in this encounter Orders Medications Ordered That Gus ht Not Have Been Administered Count Last Ordered Date First Ordered Date acetaminophen (TYLENOL) tablet 325-650 mg 1 10/22/2016 diphenhydrAMINE (BENADRYL) capsule 25 mg 1 10/22/2016 diphenhydrAMINE (BENADRYL) c apsule 25-50 mg 1 10/22/2016 diphenhydrAMINE (BENADRYL) i njection 25-50 mg 1 10/22/2016 methylPREDNISolone sodium WALLER CCINATE (SOLU-MEDROL) injection 50-100 mg 1 10/22/2016 documented in this encounter Care Teams Machine Tool Mechanic Relationship Specialty Start Date End Date Sofy Nicolas MD 1 [facility] Level [address] [place] [address] PCP - General 06/27/15 documented as of this encounter
--- OUTSIDE RECORDS SUMMARY | 2024-08-21 14:09 | XMS_ITS | Encounter Summary ---
Author Organization [facility] Address [address] [place] [address] Care Team Providers Care School Traffic Supervisor Name Role Phone Sofy Nicolas MD Primary Care Provider +1 [phone] Reason for Visit * Reason Onset Date Comments Appointment Related 04/12/2017 Insurance ch anged back [facility] and you wonder if you need a prior Auth. for Remicade Encounter Details Date Type Department Care Team (Late st Contact Info) Description 04/12/2017 Telephone [facility] Rheumatology & Immunology - [address] [address] Juve Pond Chi, MD [address] [place] [address], [address] [place] [address] Appointment Related (Insurance changed back [facility] and you wonder if you need a prior Auth. for Remicade) Social History Tobacco Use Types Packs/Day Years [...] encounter Miscellaneous Notes * Telephone Encounter - Yanelis Birmingham - 04/12/2017 1051 EDT Reason for Call: Appointment Related (Insurance changed back [facility] and you wonder if you need a prior Auth. for Remicade) Summary/Symptoms: Patients insurance has changed. She wonders if she needs a prior Authorization for her upcoming infusion. I also transferred her to registration to update insurance on her acct. Please call if needed. Yanelis Valdesill 04/12/2017 10:51 documented in this encounter Plan of Treatment Not on file documented as of this encounter Visit Diagnoses Not on filedocumented in this encounter Care Teams School Traffic Supervisor Relationship Specialty Start Date End Date Sofy Nicolas MD 1 [facility] [address] [place] [address] PCP - General 06/27/15 documented as of this encounter
--- OUTSIDE RECORDS SUMMARY | 2024-08-21 14:09 | XMS_ITS | Encounter Summary ---
Author Organization [facility] Address [address] [place] [address] Care Team Providers Care Dry Wall Installer Name Role Phone Sofy Nicolas MD Primary Care Provider +1 [phone] Reason for Visit * Reason Comments Contraception Encounter Details Date Type Department Care Team ([facility] st Contact Info) Description 05/11/2016 15:45 EDT Nurse Only [facility] Pediatric Primary Care - [place] [address] [place], [place] [id number] Unknown, Provider, Lluvia Kimball MD 1 [facility] [address] [place] [address] Nurse, [facility] Juan Carlos Rolle RN Encounter for surveillance [...] Sign Reading Time Taken Comments Blood Pressure 106/64 05/11/2016 1606 EDT Pulse - - Temperature - - Respiratory Rate - - Oxygen Saturation - - Inhaled Oxygen Concentration - - Weight 58.1 kg (128 lb) 05/11/2016 1606 EDT Height - - Body Mass Index [...] in this encounter Progress Notes * Ama Dietz, SCOTT - 05/11/2016 1607 EDT Pt is here for her Depo provera . She states that she had her Depo on time over summer at [facility].. At my request she phoned [facility] and I spoke to the double back operator. She read the note to me. Pt had a GC , Upt ,both of which were negative ,and received her Depo 02/20/16 so she is due 05/07 thru 05/22/16.[facility] will fax the notes to us. I requested [place] sign a records release so that she can easily transition her Depo and other care between the two offices. . She agrees to do so and I asked the SS to assist her.She reports no side effects thatare concerning to her.She was advised that his note would be sent to Dr. Nicolas and I asked if there was anything to add from her and she says no. She will be due again 07/27 thru 08/10/16 . Depo provera given Im left deltoid.with no adverse response. She is here with a friend. No barriers Patient Education Topic: Depo Provera Method: Verbal Taught to: Patient Barriers: None Outcomes: independent I was supervised by Dr. Chowdary who was present and immediately available in the office suite. Ama Dietz RN 05/11/2016 16:18 documented in this encounter Plan of [...] Deltoid documented in this encounter Care Teams Dry Wall Installer Relationship Specialty Start Date End Date Sofy Nicolas MD 1 [facility] [address] [place] [address] PCP - General 06/27/15 documented as of this encounter
--- OUTSIDE RECORDS SUMMARY | 2024-08-21 14:09 | XMS_ITS | Encounter Summary ---
Author Organization [facility] Address [address] [place] [address] Care Team Providers Care Ux Manager Name Role Phone Sofy Nicolas MD Primary Care Provider +1 [phone] Reason for Visit * Reason Comments Clinic Admin Medications pt with uveitis here for q 8 wk Remicade infusion of 300mg. Encounter Details Date Type Department Care Team (Late st Contact Info) Description 11/22/2015 8:30 EDT Office Visit [facility] Rheumatology & Immunology - [address] [id number] Unknown, Provider, MD Pond, Juve An MD [address] [place] [address], [address] [place] [address] Assoc, Rheum Health Uveitis (Primary [...] Sign Reading Time Taken Comments Blood Pressure 104/57 11/22/2015 1105 EDT Pulse 70 11/22/2015 1105 EDT Temperature 37.1 ??C (98.8 ??F) 11/22/2015 1105 EDT Respiratory Rate - - Oxygen Saturation - - Inhaled Oxygen Concentration - - Weight 55.8 kg (123 lb) 11/22/2015 0815 EDT Height - - Body Mass Index 19.53 09/25/2015 0804 EST documented in this encounter [...] 10/02/2015 8:06 EST documented in this encounter Discharge Diagnoses Diagnosis H20.9 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 For additional educational information on arthritis you may go to the Arthritis Foundation as a resource. The web link is www.arthritis.org. documented in this encounter Progress Notes * Yancy Honeycutt RN - 11/22/2015 0843 EDT Biologic Infusion Therapy Infliximab (Remicade) Patient???s [...] any adverse effects. I was supervised by Naima Pond MD who was present and immediately available in the office suite. YANCY HONEYCUTT RN 11/22/2015 8:43 Pt will be at home in [facility] for next two infusions (December and February), as [facility] will not be in session, classes end 1st wk in December. Has appt with Dr. Pond on 04/30. Pt knows to call for infusion appointment for mid Apr, once prior two infusion dates known. documented in this encounter Plan of Treatment Not on file documented as of this encounter Procedures Procedure Name Priority Date/Time Associated Diagnosis Comments ORDERS - SCANNED 01/02/2016 12:35 EDT documented in this encounter Results * ORDERS - SCANNED (01/02/2016 12:35 EDT) 01/02/2016 12:3 5 EDT us Scan 2 Fashion Journalist ADMISSION ORDERABLES Final Result documented in this encounter Visit Diagnoses Diagnosis Uveitis- Primary Unspecified iridocyclitis Psoriasis Other psoriasis documented in this encounter Administered Medications Inactive Administered Medications - up to 3 most recent administrations Medication Order MAR Action Action Date Dose Rate Site acetaminophen (TYLENOL) tablet 325 mg 325 mg, oral, Once (Without Time Specified), 1 dose, Starting on Wed11/22/15 at 0830, Until Wed11/22/15 at 0817, RoutineIndications:Uveitis, Psoriasis Given 11/22/2015 8:17 EDT 325 mg inFLIXimab (REMICADE) 300 mg in sodium chloride (NS) 0.9 % 250 mL IVPB 300 mg, intravenous, Administer over 120 Minutes, Once (Without Time Specified), 1 dose, Starting on Wed11/22/15 at 0830, Until Wed11/22/15 at 1050, RoutineIndications:Uveitis, Psoriasis Rate Documented 11/22/2015 9:50 EDT 300 mg 125 mL/hr Rate Documented 11/22/2015 9:20 EDT 300 mg 125 mL/hr New Bag 11/22/2015 8:50 EDT 300 mg 125 mL/hr sodium chloride 0.9 % (NS) infusion at 25 mL/hr, intravenous, CONTINUOUS, Starting on Wed11/22/15 at 0830, Until Wed11/22/15 at 1318, RoutineIndications:Uveitis,Psoriasis New Bag 11/22/2015 8:35 EDT 25 mL/hr documented in this encounter Orders Medications Ordered That Gus ht Not Have Been Administered Count Last Ordered Date First Ordered Date acetaminophen (TYLENOL) tablet 325-650 mg 1 11/22/2015 diphenhydrAMINE (BENADRYL) capsule 25 mg 1 11/22/2015 diphenhydrAMINE (BENADRYL) c apsule 25-50 mg 1 11/22/2015 diphenhydrAMINE (BENADRYL) i njection 25-50 mg 1 11/22/2015 methylPREDNISolone sodium WALLER CCINATE (SOLU-MEDROL) injection 50-100 mg 1 11/22/2015 documented in this encounter Care Teams Ux Manager Relationship Specialty Start Date End Date Sofy Nicolas MD 1 [facility] [address] [place] [address] PCP - General 06/27/15 documented as of this encounter
--- OUTSIDE RECORDS SUMMARY | 2024-08-21 14:09 | XMS_ITS | Encounter Summary ---
Author Organization [facility] Address [address] [place] [address] Care Team Providers Care Line Supervisor Name Role Phone Sofy Nicolas MD Primary Care Provider [phone] [phone] Reason for Visit * Reason Comments Medication Management Encounter Details Date Type Department Care Team ([facility] Contact Info) Description 10/02/2015 8:00 EST Office Visit [facility] Rheumatology & Immunology - [address] [id number] Juve Pond Chi, MD [address] [place] [address], [address] [place] [address] Uveitis (Primary Dx); Staph skin [...] Sign Reading Time Taken Comments Blood Pressure 90/58 10/02/2015 0806 EST Pulse 62 10/02/2015 0806 EST Temperature - - Respiratory Rate 14 10/02/2015 0806 EST Oxygen Saturation - - Inhaled Oxygen Concentration - - Weight 54 kg (119 lb) 10/02/2015 0806 EST Height - - Body Mass Index 18.9 09/25/2015 0804 EST documented in this encounter [...] encounter Discharge Diagnoses Diagnosis 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 Call Dermatology if skin pimples worsen. documented in this encounter Progress Notes * Juve Pond Chi, MD - 10/02/2015 0805 EST Images from the original note were not included. Subjective: Patient ID: Orlando Bearden is an 20 y.o. female. Chief Complaint Patient presents with ??? Medication Management HPI Comments: F/u uveitis on Remicade, ?psoriasis 2/2 Remicade, recurrent furuncles (cleared after Rx suggested by Derm): has had pustules recurring in the groin past several days. Started using Hibiclens after showering again; applying mupirocin to the nose, not perianally. Had tried humira for the uveitis in the past, but was not helpful. Denies fever. Denies psoriasis at the ears. Denies any other joint pains or swelling. AM stiffness: denies Physical activity: Runs; works out at the gym. Patient Active Problem List Diagnosis ??? Uveitis ??? Psoriasis ??? High risk medication use ??? Surveillance for Depo-Provera contraception ??? Depressed mood ??? Chronic back pain ??? Staph skin infection ??? Slow transit constipation Past Medical History Diagnosis Date ??? Psoriasis started on remicade ??? Varicella ??? Joint pain ??? Vision abnormalities ??? Hearing difficulty Past Surgical History Procedure Laterality Date ??? Cataract removal with implant Left 2011 ??? Glaucoma surgery Left ??? Tonsillectomy ??? Refractive surgery 2007, 2012 Outpatient Prescriptions Marked as Taking for the 10/02/15 encounter (Office Visit) with Juve Pond Chi, MD Medication Sig Dispense Refill ??? chlorhexidine (HIBICLENS) 4 % liquid Apply topically daily 960 mL 11 ??? inFLIXimab (REMICADE) 100 mg injection Inject 300 mg into the vein every 8 weeks ??? medroxyPROGESTERone (DEPO-PROVERA) 150 mg/mL injection Inject 150 mg into the muscle every 12 weeks ??? TACROLIMUS (PROTOPIC TOP) Apply topically as needed. Current Facility-Administered Medications for the 10/02/15 encounter (Office Visit) with Juve Pond Chi, MD Medication Dose Route Frequency Provider Last Rate Last Dose ??? medroxyPROGESTERone (DEPO-PROVERA) injection 150 mg 150 mg intramuscular Q3 MONTHS Sofy Nicolas MD ROS - See HPI I reviewed the 10 point ROS performed by the nurse which is as documented in Prism. Objective: BP 90/58 mmHg Pulse 62 Resp 14 Wt 53.978 kg (119 lb) Physical Exam Constitutional: She is oriented to person, place, and time. She appears well- developed and well-nourished. No distress. Attractive, quiet, slender, young female HENT: Head: Normocephalic and atraumatic. [...] and time. No cranial nerve deficit. Skin: There is erythema. Scars from past furuncles and boils in the buttock region, right groin. Small vesicular lesions with erythema in the right groin and perineal area. Psychiatric: She has a normal mood and affect. Her behavior is normal. Reserved Vitals reviewed. 09/25/15 labs: CBC, CMP - normal RAPID3 (Routine assessment of pt index data): Rapid3 score: 6 Disease activity: Low moderate Goal: Prevent flares of uveitis without infectious complications. This was discussed with patient. Assessment: Plan: 1. Uveitis 2. Staph skin infection 3. Psoriasis Uveitis- Controlled on every eight-week Remicade infusions. She has been on Remicade for 9 years. Staph skin infection- Manifest by vesicular lesions, past furuncles. Has not had recurrence of buttock abscesses, but currently with mild flare of vesicular lesions in the perineal region. Advised that she start cleansing with Hibiclens and to follow-up with dermatology if the lesions worsen. Unfortunately Remicade suppresses her immune system so that she is at risk for recurrent infections. Psoriasis- Secondary to the Remicade? Usually affects the scalp and ears; not active currently. Barriers to learning identified: No Patient verbalizes understanding and agrees with plan Yes F/u 7 months. Juve Pond MD * Jacklyn Poe - 10/02/2015 0805 EST REVIEW OF SYSTEMS: Yes No Yes No [...] x Hand/Foot color change in cold X RAPID3 SCORE Over the last week were you able to: a. Dress yourself including tying shoelaces / doing buttons? 0 0 = Without ANY difficulty 1 = With SOME difficulty 2 = With MUCH difficulty 3 = UNABLE to do Conversion scale: 1=0.3 2=0.7 3=1.0 4=1.3 5=1.7 6=2.0 7=2.3 8=2.7 9=3.0 10=3.3 11=3.7 12=4.0 13=4.3 14=4.7 15=5.0 16=5.3 17=5.7 18=6.0 19=6.3 20=6.7 21=7.0 22=7.3 23=7.7 24=8.0 25=8.3 26=8.7 27=9.0 28=9.3 29=9.7 30=10 b. Get in and out of bed? 0 c. Lift a full cup or glass to your mouth? 0 d. Walk outdoors on flat ground? 0 e. Wash and dry your entire body? 0 f. Bend down to metal pickling equipment operator clothing from the floor? 0 g. Turn regular faucets on and off? 0 h. Get in and out of a car, bus, train or airplane? 0 i. Walk two miles or three kilometers, if you wish? 0 j. Participate in recreational activities/sports, if you wish? 0 TOTAL = 0 FUNCTION (FN) (Use conversion scale) = (Use conversion scale above) Get a good night???s sleep? 0 0 = Without ANY difficulty (0.0) 1 = With SOME difficulty (1.1) 2 = With MUCH difficulty (2.2) 3 = UNABLE to do (3.3) Deal with feelings of anxiety or being nervous? 0 Deal with feelings of depression or feeling blue? 0 PAIN (PN) = 1.5 0-10 PATIENT GLOBAL (PTGE) = 4.5 0-10 RAPID3 SCORE (FN + PN + PTGE) = 6 0-30 HS: > 12 MS: 6.1 - 12 LS: 3.1 - 6 NR: <= 3 documented in this encounter Plan of Treatment Not on file documented as of this encounter Visit Diagnoses Diagnosis Uveitis- Primary Unspecified iridocyclitis Staph skin infection Unspecified local infection of skin and subcutaneous tissue Psoriasis Other psoriasis documented in this encounter Care Teams Line Supervisor Relationship Specialty Start Date End Date Sofy Nicolas MD [address] [facility] [address] [place] [phone] PCP - General 06/27/15 documented as of this encounter
--- OUTSIDE RECORDS SUMMARY | 2024-08-21 14:09 | XMS_ITS | Encounter Summary ---
Author Organization [facility] Address [address] [place] [address] Care Team Providers Care White Metal Caster Name Role Phone Sofy Nicolas MD Primary Care Provider [phone] [phone] Reason for Visit * Reason Comments Follow-up here alone--recheck psoriasis, boils on buttocks are gone, also needs depo shot Encounter Details Date Type Department Care Team (Late st Contact Info) Description 06/27/2015 15:00 EDT Office Visit [facility] Pediatric Primary Care - [address] [address] Sofy Nicolas MD [address] [address] Neck strain, initial encounter (Primary Dx); Depo contraception; Staph skin infection; Psoriasis; Depressed mood; Uveitis Discharge Disposition: Auto Discharge Social History Tobacco [...] documented in this encounter Discharge Diagnoses Diagnosis S16.1XXA Strain of muscle, fascia and tendon at neck level, initial encounter-S16.1XXA[ICD-10-CM] Z30.9 Encounter for contraceptive management, unspecified-Z30.9[ICD-10-CM] documented in this encounter Patient Instructions * Patient Instructions* Sofy Nicolas MD - 06/27/2015 15:13 EDT Images from the original note were not included. [facility] Patient Instructions Neck Strain or Sprain: Rehab Exercises Your Care Instructions Here are some examples of typical rehabilitation exercises for your condition. Start each exercise slowly. Ease off the exercise if you start to have pain. Your doctor or physical therapist will tell you when you can start these exercises and which ones will work best for you. How to do the exercises Neck rotation 1. Sit in a firm chair, or stand up straight. 2. Keeping your chin level, turn your head to the right, and hold for 15 to 30 seconds. 3. Turn your head to the left and hold for 15 to 30 seconds. 4. Repeat 2 to 4 times to each side. Neck stretches 1. Look straight ahead, and tip your right ear to your right shoulder. Do not let your left shoulder rise up as you tip your head to the right. 2. Hold for 15 to 30 seconds. 3. Tilt your head to the left. Do not let your right shoulder rise up as you tip your head to the left. 4. Hold for 15 to 30 seconds. 5. Repeat 2 to 4 times to each side. Forward neck flexion 1. Sit in a firm chair, or stand up straight. 2. Bend your head forward. 3. Hold for 15 to 30 seconds. 4. Repeat 2 to 4 times. Lateral (side) bend strengthening 1. With your right hand, place your first two fingers on your right yazdanism. 2. Start to bend your head to the side while using gentle pressure from your fingers to keep your head from bending. 3. Hold for about 6 seconds. 4. Repeat 8 to 12 times. 5. Switch hands and repeat the same exercise on your left side. Forward bend strengthening 1. Place your first two fingers of either hand on your forehead. 2. Start to bend your head forward while using gentle pressure from your fingers to keep your head from bending. 3. Hold for about 6 seconds. 4. Repeat 8 to 12 times. Neutral position strengthening 1. Using one hand, place your fingertips on the back of your head at the top of your neck. 2. Start to bend your head backward while using gentle pressure from your fingers to keep your headfrom bending. 3. Hold for about 6 seconds. 4. Repeat 8 to 12 times. Chin tuck 1. Lie on the floor with a rolled-up towel under your neck. Your head should be touching the floor. 2. Slowly bring your chin toward your chest. 3. Hold for a count of 6, and then relax for up to 10 seconds. 4. Repeat 8 to 12 times. Follow-up care is a bhat part of your treatment and safety. Be sure to make and go to all appointments, and call your doctor if you are having problems. It's also a good idea to know your test resultsand keep a list of the medicines you take. Where can you learn more? Go to [email or web address] or log into your [employer] account at [email or web address] Enter M679 in the search box to learn more about Neck Strain or Sprain: Rehab Exercises. ?? [id number] [employer]. Care instructions adapted under license by [facility] This care instruction is for use with your licensed healthcare professional. If you have questions about a medical condition or this instruction, always ask your healthcare professional. [employer] disclaims any warranty or liability for your use of this information. Content Version: 10.6.700769; Current as of: January 18, 2015 YOU MAY USE IBUPROFEN/ADVIL 400MG UP TO EVERY 4-6 HOURS FOR PAIN, TRY TAKING THIS TWICE PER DAY FORTWO DAYS AND THEN NEEDED TO SEE IF THIS HELPS LOOK AT WWW.[employer].Glooko FOR SOME GENTLE YOGA EXERCISES TO STRETCH THE NECK TRY YOUR SENNA TABLETS OR MIRALAX FOR YOUR CONSTIPATION AND CALL IF THIS DOES NOT IMPROVE YOUR NEXT DEPO SHOT IS DUE BETWEEN September 12 AND September 26 documented in this encounter Discharge Disposition Disposition Code Departure Means Destination Auto Discharge documented in this encounter Progress Notes * Sofy Herrera LPN - 06/27/2015 1534 EDT Date last pap: Unknown Last Depo-Provera: March 19, 2015 Side Effects if any: None Serum HCG indicated? Yes - negative. BP 110/66 Depo-Provera 150 mg IM given by: Sofy Herrera LPN 06/27/2015 15:36 in left deltoid Kitchen Hand: [employer], Lot #: [id number]; Expiration: 08/2017 . Next appointment due 2015 - September 26, 2015 I was supervised by Dr. Sofy Nicolas who was present and immediately available in the office suite. Sofy Herrera LPN 06/27/2015 15:38 Patient Education Topic: Depo-provera Method: Handout and Verbal Taught to: Patient Barriers: None Outcomes: verbalized understanding Signature: Sofy Herrera LPN 06/27/2015 15:39 * Sofy Nicolas MD - 06/27/2015 1523 EDT Subjective: Patient ID: Orlando Bearden is an 20 y.o. female. Chief Complaint Patient presents with ??? Follow-up here alone--recheck psoriasis, boils on buttocks are gone, also needs depo shot HPI Comments: Orlando is a 20yo female here for f/u of multiple issues: Furuncles of buttock/Staph skin infection: Much improved, seen by Dermatology. 2 sites I&D'ed, 2 weeks of Doxycyline completed with much improvement. Washing with Hibiclens wash daily in shower. Not doing bleach baths. Has Mupirocin but has not started daily nasal application or one week per month anal application yet. Understands importance of this. Due for Depo Provera injection, last one 14 weeks ago at outside office: Last sex 2 weeks ago, useda condom. Uveitis: No problems. Remicade was held briefly while skin infection resolved but she just recentlyhad an infusion. Head injury: Fell backwards 2 days ago while putting on her shoes and hit back of head on wood floor. No LOC, no bleeding, no nausea, no vomiting, no change in vision. Had pain and a headached yesterday, neck now just feels stiff, no focal pain. Has not tried any OTC med or heat to help. Constipation: Has not had a BM in 3 days, history of constipation in past. Was severe in high school but has not been a problem for last 2 years. Has Senna tablets and Miralax at home. Says fiber does not usually help Declines Flu shot today. Disease Management: N/A Patient Active Problem List Diagnosis ??? Uveitis ??? Psoriasis ??? High risk medication use ??? Sexually active ??? Depressed mood ??? Chronic back pain ??? Furuncle of buttock ??? Staph skin infection Past Medical History Diagnosis Date ??? Psoriasis started on remicade ??? Varicella ??? Joint pain ??? Vision abnormalities ??? Hearing difficulty Current Outpatient Prescriptions on File Prior to Visit Medication Sig Dispense Refill ??? chlorhexidine (HIBICLENS) 4 % liquid Apply topically daily 960 mL 11 ??? inFLIXimab (REMICADE) 100 mg injection Inject 300 mg into the vein every 4 weeks. ??? medroxyPROGESTERone (DEPO-PROVERA) 150 mg/mL injection Inject 150 mg into the muscle every 12 weeks ??? TACROLIMUS (PROTOPIC TOP) Apply topically as needed. No current facility-administered medications on file prior to visit. Allergies Allergen Reactions ??? Ciprofloxacin Hives ??? Clindamycin ??? Penicillins Social History Substance Use Topics ??? Smoking status: Never Smoker ??? Smokeless tobacco: Never Used ??? Alcohol Use: No Review of Systems Constitutional: Negative for activity change (tired). Eyes: Negative. Gastrointestinal: Positive for constipation. Musculoskeletal: Positive for neck pain. Neurological: Negative for dizziness, syncope, weakness and light-headedness. - See HPI Objective: There were no vitals taken for this visit. No blood pressure reading on file for this encounter. Physical Exam Constitutional: She is oriented to person, place, and time. She appears well- developed and well-nourished. Very slim Head: No signs of injury. Mouth/Throat: Mucous membranes are moist. Eyes: EOM are normal. Pupils are equal, round, and reactive to light. Neck: Normal range of motion. Neck supple. Slightly stiff Abdominal: Soft. She exhibits no distension and no mass. There is no tenderness. Musculoskeletal: Normal range of motion. She exhibits no tenderness. Neurological: She is alert and oriented to person, place, and time. Skin: Skin is warm and dry. Healed furuncles over bilateral buttocks, site of I&D over left buttock healing well. No new sites. Nursing note and vitals reviewed. Labs: POCT Urine Test Lab Results Component Value Date PREGNANCYTE Negative 06/27/2015 Assessment and Plan: Orlando was seen today for follow-up. Diagnoses and associated orders for this visit: Neck strain, initial encounter: Normal exam today except for some neck stiffness. - Recommend dry or wet heat to back of neck - Neck strain gentle exercises given - Referred to online yoga site [employer] for gentle neck yoga exercises if she would like totry them - Advil 400mg q4-6hrs prn, try twice per day for 2 days initially Depo contraception: Next injection due Sep 12- will make appt for f/u visit with me in additionto injection. After injection Orlando mentioned to nurse that she might want to change to a non-hormonal method of contraception. Will discuss at next visit. - POCT Urine Test - medroxyPROGESTERone (DEPO-PROVERA) injection 150 mg; Inject 1 mL into the muscle every 3 months Staph skin infection: Healing well, sees Derm again on Aug 13. To continue Hibiclens wash daily. Reiterated importance of using Mupirocin nasally and anally per Derm recs. Psoriasis: Stable Depressed mood: Continues to be a bit down, aware of counseling services and option to restart Prozac if she would like to. Monitor Uveitis: Stable, seeing Dr. Pond. Regular Remicade infusions RTC mid August [employer] was not used. Sofy Nicolas MD, Adolescent Medicine 06/27/2015 15:44 documented in this encounter Plan of Treatment Not on file documented as of this encounter Procedures Procedure Name Priority Date/Time Associated Diagnosis Comments POCT TEST, VISUAL READ Routine 06/27/2015 3:25 EDT Depo contraception documented in this encounter Results * POCT URINE TEST (06/27/2015 3:25 EDT) Test, Urine, POC Negative Reference Range, Negative POINT OF CARE Control Line Present Yes POINT OF CARE Background Clear? Yes POINT OF CARE Urine specimen (specimen) 06/27/2015 3:25 EDT us Sofy Nicolas MD POINT OF CARE TEST ORDERA BLES Final Result POINT OF CARE documented in this encounter Visit Diagnoses Diagnosis Neck strain, initial encounter- Primary Depo contraception Staph skin infection Unspecified local infection of skin and subcutaneous tissue Psoriasis Other psoriasis Depressed mood Uveitis Unspecified iridocyclitis documented in this encounter Orders Medications Ordered That Gus ht Not Have Been Administered Count Last Ordered Date First Ordered Date medroxyPROGESTERone (DEPO-IN OVERA) injection 150 mg 1 06/27/2015 documented in this encounter Care Teams White Metal Caster Relationship Specialty Start Date End Date Sofy Nicolas MD 1 [facility] [address] [place] [phone] PCP - General 06/27/15 documented as of this encounter
--- OUTSIDE RECORDS SUMMARY | 2024-08-21 14:09 | XMS_ITS | Encounter Summary ---
Author Organization [facility] Address [address] [place] [address] Care Team Providers Care Income Tax Auditor Name Role Phone Sofy Nicolas MD Primary Care Provider [phone] Reason for Visit * Reason Onset Date Comments Other 12/20/2015 Usually get infu sions her, but going home for summer. Will need 1 autho for [facility] Encounter Details Date Type Department Care Team (Late st Contact Info) Description 12/20/2015 Telephone [facility] Rheumatology & Immunology - [address] [address] Juve Pond Chi, MD [address] [place] [address], [address] [place] [address] Other (Usually get infusions her, but going home for summer. Will need 1 autho for [facility]) Social History Tobacco Use Types Packs/Day Years [...] Miscellaneous Notes * Telephone Encounter - Yancy Honeycutt RN - 12/20/2015 152 EDT Orders signed by , faxed to [facility]. Pt confirms has had many infusions there in past. YANCY HONEYCUTT RN * Telephone Encounter - Yancy Honeycutt RN - 12/20/2015 1501 EDT Orders for December and February infusions put in Dr. Pond's box for signature. YANCY HONEYCUTT RN * Telephone Encounter - Camilo Segovia - 12/20/2015 123 EDT Reason for Call: Other Summary/Symptoms: Pt going home for summer so will need 1 infusion autho sent to [facility]. Fax is [phone]. Please call her to discuss Camilo Segovia 12/20/2015 12:37 documented in this encounter Plan of Treatment Not on file documented as of this encounter Visit Diagnoses Not on filedocumented in this encounter Care Teams Income Tax Auditor Relationship Specialty Start Date End Date Sofy Nicolas MD 1 [facility] [address] [place] [phone] PCP - General 06/27/15 documented as of this encounter
--- OUTSIDE RECORDS SUMMARY | 2024-08-21 14:09 | XMS_ITS | Encounter Summary ---
Author Organization [facility] Address [address] [place] [address] Care Team Providers Care Manager Zone Name Role Phone Sofy Nicolas MD Primary Care Provider [phone] Reason for Visit * Reason Comments Follow-up here alone--depo moisés t Encounter Details Date Type Department Care Team ([facility] st Contact Info) Description 09/12/2015 15:00 EST Office Visit [facility] [place] [facility] Pediatric Primary Care [address] [phone] Sofy Nicolas MD 1 [facility] [address] [place] [address] Surveillance for Depo-Provera contraception (Primary Dx) Social [...] - - Weight 56.7 kg (125 lb) 09/12/2015 1507 EST Height - - Body Mass Index 19.95 06/06/2015 1055 EDT documented in this encounter [...] 06/05/2015 15:59 EDT documented in this encounter Progress Notes * Lluvia Ambrosio LPN - 09/12/2015 1541 EST Last Depo-Provera: 06/27/15. Side Effects if any: none. Serum HCG indicated? no. Depo-Provera 150 mg IM given by: Lluvia Ambrosio LPN 09/12/2015 15:42 Next appointment due in 12/13. * Sofy Nicolas MD - 09/12/2015 1539 EST Subjective: Patient ID: Orlando Bearden is an 20 y.o. female. Chief Complaint Patient presents with ??? Follow-up here alone--depo shot HPI Comments: Here for next Depo Provera injection. Interested in discussing other control options as has been on Depo for a long time. LIkes having effective contraception but interested in having a regular period. Otherwise feeling well, staph infection of buttocks is fully healed, one lesion took longer to healthan the others and is now a purple bump; no pain, no new lesions. Still using Hibiclens almost daily. Has Derm f/u next week. Remicade infusions are going well. Neck stiffness from last visit after she fell on floor is completely resolved, resolved with treatment recs within a few days. Sees me while here at school but identifies Dr. Alejandra in [place] as PCP, plans on a well visit there this summer Disease Management: N/A Patient Active Problem List [...] Apply topically as needed. Current Facility-Administered Medications on File Prior to Visit Medication Dose Route Frequency Provider Last Rate Last Dose ??? medroxyPROGESTERone (DEPO-PROVERA) injection 150 mg 150 mg intramuscular Q3 MONTHS Sofy Nicolas MD Allergies Allergen Reactions ??? Ciprofloxacin Hives ??? Clindamycin ??? Penicillins Social History Substance Use Topics ??? Smoking status: Never Smoker ??? Smokeless tobacco: Never Used ??? Alcohol Use: No Review of Systems - See HPI Objective: Wt 56.7 kg (125 lb) No blood pressure reading on file for this encounter. Physical Exam Constitutional: She appears well-developed and well-nourished. Nursing note and vitals reviewed. Labs: N/A Assessment and Plan: Orlando was seen today for follow-up. After counseling about all contraceptive methods available has decided she will continue with Depo for now. Does not want a LARC but may consider change to NuvaRing or Patch. Encouraged condoms. Diagnoses and all orders for this visit: Surveillance for Depo-Provera contraception - medroxyPROGESTERone (DEPO-PROVERA) injection 150 mg; Inject 1 mL into the muscle Now Due for STI screen at next visit Supervisor Tunnel Heading was not used. I spent a total of 25 minutes face to face with the patient/family today and 15 minutes of that time were spent in counseling/coordinating care for the diagnoses and problems discussed above. Sofy Nicolas MD, Adolescent Medicine 09/12/2015 15:48 documented in this encounter Plan of [...] (DEPO-PROVERA) injection 150 mg 150 mg, intramuscular, NOW X1, 1 dose, On Belinda 09/12/15 at 1600, Routine Given 09/12/2015 15:40 EST 150 mg Lef t Deltoid documented in this encounter Care Teams Manager Zone Relationship Specialty Start Date End Date Sofy Nicolas MD 1 [facility] Level [address] [place] [address] PCP - General 06/27/15 documented as of this encounter
--- OUTSIDE RECORDS SUMMARY | 2024-08-21 14:09 | XMS_ITS | Encounter Summary ---
Author Organization [facility] Address [address] [place] [address] Care Team Providers Care Search Consultant Name Role Phone Nuvia Alejandra MD Primary Care Provider [phone] Reason for Visit * Reason Comments Skin Exam Abscess of buttocks and groin Encounter Details Date Type Department Care Team (Late st Contact Info) Description 06/18/2015 8:45 EDT Office Visit [facility] Dermatology 5th Floor [address] [address] Komal Gaming MD [facility] [place] [address] Furuncle of buttock (Primary Dx); Uveitis; Psoriasis Social History Tobacco Use Types Packs/Day [...] Discharge Diagnoses Diagnosis L02.32 Furuncle of buttock-L02.32[ICD-10-CM] 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 Again, do this daily for 7 days in a row, once a day. Then, take three weeks off. Repeat. You can continue to use Hibiclens to wash daily. documented in this encounter Ordered Prescriptions Prescription Sig Dispense Quantity Refills Last Filled Start Date End Date chlorhexidine (HIBICLENS) 4 % liquid Apply topically daily 960 mL 11 06/18/2015 chlorhexidine (HIBICLENS) 4 % liquid Apply topically daily . 960 mL 11 06/18/2015 5 documented in this encounter Progress Notes * Ean Farmer - 06/18/2015 0841 EDT Review of Systems Constitutional: Negative for [...] The patient is not nervous/anxious. Ean Farmer 06/18/2015 8:41 Komal Gaming MD 06/18/2015 12:27 * Darya Perry MD - 06/18/2015 0838 EDT DERMATOLOGY OUTPATIENT CLINIC NOTE Chief Complaint Patient presents with ??? Skin Exam Abscess of buttocks and groin Dermatologic History: 1. 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 Psoriasis - thought possibly to be secondary to Remicade Last Dermatology office visit: 06/06/15 SUBJECTIVE Ms. Bearden is a 20 y.o. female who presents for follow up for abscesses s/p I&D on Jun 01 of right medial groin and left inferior buttock. She was on doxycyline for two weeks, and she has healed well from the procedure. She resumed Remicaide infusion on 06/06. She denies any new spots. She finished the course of doxycycline four days ago. She has not done bleach baths or the mupirocin treatment. She has been using the Hibiclens soap [...] which includes the following prescription(s): chlorhexidine, infliximab, medroxyprogesterone, and tacrolimus. She is allergic [...] following comments: A) posterior, inferior left buttock, ~2cm hyperpigmented healed plaque with small central crust, noinduration, erythema or pain B) medial right groin: post-inflammatory hyperpigmentation in site of previous I&D IMPRESSION: 1. Recurrent abscesses, groin, buttocks, healed - Overall much improved from 06/06 PLAN: 1. Continue hibiclens washes, she can do bleach baths several times weekly if she is able to at herparents' home. She lives in a dormitory without a bath 2. Discussed using mupirocin to reduce staph aureus colonization; patient given instructions on howto do this daily intranasally and johnna-anally for one week out of every month for the next several months. She has mupirocin at home so will not prescribe today 3. Okay to continue to receive remicaide infusions 4. Follow up in two months or sooner if needed. Darya Perry MD 06/18/2015 9:12 I saw and examined the patient with the resident/fellow. I agree with the findings and plan of caredocumented in the resident's/fellow's note. Komal Gaming MD 06/18/2015 12:27 documented in this encounter Plan of Treatment Not on file documented as of this encounter Visit Diagnoses Diagnosis Furuncle of buttock- Primary Carbuncle and furuncle of buttock Uveitis Unspecified iridocyclitis Psoriasis Other psoriasis documented in this encounter Discontinued Medications Medication Sig Discontinue Reason Start Date End Da te chlorhexidine (HIBICLENS) 4 % liquid Apply topically daily . 06/18/2015 06/18/2015 documented as of this encounter Care Teams Search Consultant Relationship Specialty Start Date End Date Nuvia Alejandra MD [address] [place] [id number] PCP - General Primary Care 12/19/14 06/26/15 documented as of this encounter
--- OUTSIDE RECORDS SUMMARY | 2024-08-21 14:09 | XMS_ITS | Encounter Summary ---
Author Organization [facility] Address [address] [place] [address] Care Team Providers Care Range Examiner Name Role Phone Sofy Nicolas MD Primary Care Provider [phone] Reason for Visit * Reason Onset Date Comments Paperwork request 02/19/2016 Requesting [facility] order sheet Encounter Details Date Type Department Care Team ([facility] Contact Info) Description 02/19/2016 Telephone [facility] Rheumatology & Immunology - [address] [address] Juve Pond Chi, MD [address] [place] [address], [address] [place] [address] Paperwork request (Requesting Physicians order sheet) Social History Tobacco Use Types Packs/Day Years [...] Telephone Encounter - Crystal Mai RN - 02/19/2016 1009 EDT Spoke with Soha at [facility] who requested Remicade therapy plan order for submitting new prior auth that expires in February. , attn Soha Paperwork faxed per request, transmission confirmation sheet received. * Telephone Encounter - Camilo Segovia - 02/19/2016 0827 EDT Reason for Call: Paperwork request Summary/Symptoms: Requesting Physicians order sheet, please call Camilo Segovia 02/19/2016 8:27 documented in this encounter Plan of Treatment Not on file documented as of this encounter Visit Diagnoses Not on filedocumented in this encounter Care Teams Range Examiner Relationship Specialty Start Date End Date Sofy Nicolas MD 1 [facility] 3 [place] [address] PCP - General 06/27/15 documented as of this encounter
--- OUTSIDE RECORDS SUMMARY | 2024-08-21 14:09 | XMS_ITS | Encounter Summary ---
Author Organization [facility] Address [address] [place] [address] Care Team Providers Care Lumite Injector Name Role Phone Sofy Nicolas MD Primary Care Provider [phone] Reason for Referral * Medication Prior Authorization (Urgent) - Closed Specialty Diagnoses / Procedures Referred By [facility] t Referred To Contact Diagnoses Uveitis Arthropathic psoriasis, unspecified ([facility]) Juve Pond Chi, MD Phone: tel: fax: Referral ID Status Reason Start Date Expiration Date Visits Requested Visits Authorized [id number] Closed Medication Prior Authorization 11/22/2016 04/12/2018 1 1 Question Answer Medication to be Prior Authorized: Remicade (pt has infusion 12/21- has new insurance) Comments The purpose of this consult request is to inform the scheduling staff that a medication needs to be prior-authorized before it is prescribed and/or administered. Reason for Visit * Reason Onset Date Comments Prior Auth, Medication 12/17/2016 December 21 Remicaid infusion Encounter Details Date Type Department Care Team ([facility] Contact Info) Description 12/17/2016 Telephone [facility] Rheumatology & Immunology - [facility] [address] [place] [address] Juve Pond Chi, MD [address] [place] [address], [address] [place] [address] Prior Auth, Medication (December 21 Remicaid infusion) Social History Tobacco Use Types Packs/Day Years [...] * Telephone Encounter - Key Lagos - 12/22/2016 1549 EDT Remicade was approved 11.22.16 through 12.22.2019. * Telephone Encounter - Zoe Tomlinson RN - 12/17/2016 1321 EDT I have placed a stat proir auth for remicade. * Telephone Encounter - Katrina Brownlee V. - 12/17/2016 1254 EDT Patient no longer has Medicaid, she had [place] BCBS and will need a new PA on her Remicaid infusions. Next appt is December 21 documented in this encounter Plan of Treatment Scheduled Referrals Name Type Priority Associated Diagnoses Order Schedule AMB MEDICATION PRIOR AUTHORIZATION Outpatient Referral STAT Uveitis Ordered: 12/17/2016 documented as of this encounter Visit Diagnoses Diagnosis Uveitis- Primary Unspecified iridocyclitis documented in this encounter Care Teams Lumite Injector Relationship Specialty Start Date End Date Sofy Nicolas MD 1 [facility] 3 [place] [phone] PCP - General 06/27/15 documented as of this encounter
--- OUTSIDE RECORDS SUMMARY | 2024-08-21 14:09 | XMS_ITS | Encounter Summary ---
Author Organization [facility] Address [address] [place] [address] Care Team Providers Care Pediatric Dental Assistant Name Role Phone Sofy Nicolas MD Primary Care Provider [phone] Reason for Referral * Consult (Routine) - Closed Specialty Diagnoses / Procedures Referred By Contthu t Referred To Contact Ophthalmology Diagnoses Uveitis Juve Pond Chi, MD Phone: tel: fax: Referral ID Status Reason Start Date Expiration Date V isits Requested Visits Authorized [id number] Closed Specialty Services Required 04/15/2017 1 1 Question Answer Reason for Request: Other, in comments field Specify which eye: Both Onset/Duration (new problem)? history of uveitis- needs new ophthalmalogist for f/u; stable on Remicade. Contact lens wearer? No Reason for Visit * Reason Comments Follow-up uveitis, possible ps oriasis Rash pt noted new onset o f psoriasis Infusion Remicade every 8 wee ks Encounter Details Date Type Department Care Team (Late st Contact Info) Description 04/15/2017 8:20 EDT Office Visit [facility] Rheumatology & Immunology - [address] [phone] Juve Pond Chi, MD [address] [place] [address], [address] [place] [address] Uveitis (Primary Dx); Furuncle of buttock Social History Tobacco Use Types Packs/Day Years [...] Reading Time Taken Comments Blood Pressure 118/72 04/15/2017828 EDT Pulse 68 04/15/2017828 EDT Temperature - - Respiratory Rate - - Oxygen Saturation - - Inhaled Oxygen Concentration - - Weight 58.1 kg (128 lb) 04/15/2017828 EDT Height 168.9 cm (5' 6.5) 04/15/2017828 EDT Body Mass Index 20.35 04/15/2017 08 EDT documented in this encounter Functional Status [...] 04/30/2016 8:01 EDT documented in this encounter Patient Instructions * Patient Instructions* Juve Pond Chi, MD - 04/15/2017 8:20 EDT Will try to lengthen the periods between Remicade. documented in this encounter Progress Notes * Juve Pond Chi, MD - 04/15/2017 0820 EDT Subjective: Patient ID: Orlando Bearden is an 22 y.o. female. Chief Complaint Patient presents with ??? Follow-up uveitis, possible psoriasis ??? Rash pt noted new onset of psoriasis ??? Infusion Remicade every 8 weeks HPI Comments: Uveitis - on Remicade Staph skin infection - furuncles Psoriasis 2/2 Remicade? Had mucocele removed from her lower lip in February- triggered by localized trauma from biting. Has haddry bumps on the buttocks and 2 boils in pubic region over the past 3 weeks. Using Hibiclens and protopic ointment. Has had no Uveitis that she knows of; last eye check was one year ago- her local ophthalmologists have left the practices.. Last flare of uveitis was 4 yrs ago- she would like to try cutting back on the Remicade. Denies any other joint pains or swelling. AM stiffness: no Physical activity: hikes, runs 3- 5 miles several times a week; bikes. Patient Active Problem List Diagnosis ??? Uveitis ??? Psoriasis ??? High risk medication use ??? Surveillance for Depo-Provera contraception ??? Depressed mood ??? Chronic back pain ??? Staph skin infection ??? Slow transit constipation Past Medical History: Diagnosis Date ??? Hearing difficulty ??? Joint pain ??? Psoriasis started on remicade ??? Varicella ??? Vision abnormalities Past Surgical History: Procedure Laterality Date ??? CATARACT REMOVAL WITH IMPLANT Left 2011 ??? GLAUCOMA SURGERY Left ??? REFRACTIVE SURGERY 2007, 2012 ??? TONSILLECTOMY Outpatient Prescriptions Marked as Taking for the 04/15/17 encounter (Office Visit) with Juve Pond Chi, [...] as needed. Current Facility-Administered Medications for the 04/15/17 encounter (Office Visit) with Juve Pond Chi, MD Medication Dose Route Frequency Provider Last Rate Last Dose ??? medroxyPROGESTERone (DEPO-PROVERA) injection 150 mg 150 mg intramuscular Q3 MONTHS Sofy Nicolas MD 150 mg at 03/16/17 1609 ROS - See HPI REVIEW OF SYSTEMS: Yes No Yes No [...] X Hand/Foot color change in cold X Objective: BP 118/72 Pulse 68 Ht 168.9 cm (66.5) Wt 58.1 kg (128 lb) LMP (LMP Unknown) Comment: approx 6-7 years BMI 20.35 kg/m2 Physical Exam Constitutional: She is oriented [...] and time. No cranial nerve deficit. Skin: Rash (Small furuncle over pubic area. Scattered small erythematous papules/furuncles on buttocks) noted. No nail onycholysis or pitting. Psychiatric: She has a normal mood and affect. Her behavior is normal. Vitals reviewed. 02/16/17: CMP unremarkable except total protein 8.7 CRP was then signed 7 CBC normal ESR 24 03/11/17: BUCCAL MUCOSA, RIGHT, BIOPSY: - Mucocele. 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 ?? RAPID3 Summary Functional Status: 0 Pain Tolerance: 0 - No Pain Global Estimate: 3 Score: 3 Interpretation: Near Remission Assessment: 1. Uveitis AMB CONS/FOLLOW UP OPHTHALMOLOGY 2. Furuncle of buttock Plan: Uveitis- No flares for close to 4 years according to patient. She has no ophthalmologists to follow-up with for the past year. We will refer to [facility] ophthalmology clinic to establish care. Since she is doing well, we will try to decrease Remicade infusions to 300 mg every 10 weeks instead of 8 weeks. Furuncles on the buttocks and pubic region- They do not appear as inflamed or indurated as the flare/infection she had 2 years ago. We will continue with Remicade today and if she has enlargement of the furuncles with discharge or boil formation she will contact us to start doxycycline. She will continue to cleanse with Hibiclens. Barriers to learning identified: No Patient verbalizes understanding and agrees with plan Yes Return in about 1 year (around 04/15/2018). (Portions of this document may have been prepared with speech recognition software or keyboard dataentry techniques. Minor irregularities or keyboarding misprints may be present.) Juve Pond MD documented in this encounter Plan of Treatment Scheduled Referrals Name Type Priority Associated Diagnoses Order Schedule AMB CONS/FOLLOW UP OPHTHALMOLOGY Outpatient Referral Routine Uveitis Ordered: 04/15/2017 documented as of this encounter Visit Diagnoses Diagnosis Uveitis- Primary Unspecified iridocyclitis Furuncle of buttock Carbuncle and furuncle of buttock documented in this encounter Care Teams Pediatric Dental Assistant Relationship Specialty Start Date End Date Sofy Nicolas MD 1 [facility] [address] [place] [address] PCP - General 06/27/15 documented as of this encounter
--- OUTSIDE RECORDS SUMMARY | 2024-08-21 14:09 | XMS_ITS | Encounter Summary ---
Author Organization [facility] Address [address] [place] [address] Care Team Providers Care Sales Strategy Manager Name Role Phone Sofy Nicolas MD Primary Care Provider [phone] Reason for Visit * Reason Comments Follow-up Abscess of buttocks and groin. Encounter Details Date Type Department Care Team ([facility] Contact Info) Description 09/16/2015 9:00 EST Office Visit [facility] Dermatology 5th Floor [address] [phone] Komal Gaming MD [facility] [place] [address] Scar (Primary Dx); History of drainage of abscess Social History Tobacco Use Types Packs/Day Years [...] documented in this encounter Discharge Diagnoses Diagnosis L90.5 Scar conditions and fibrosis of skin-L90.5[ICD-10-CM] Z98.89 Other specified postprocedural states-Z98.89[ICD-10-CM] documented in this encounter Progress Notes * Irma Truong MD - 09/16/2015 0857 EST Dermatology Outpatient Visit Note Chief Complaint Patient presents with ??? Follow-up Abscess of buttocks and groin. Dermatologic History: 1. 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 Psoriasis - thought possibly to be secondary to Remicade 3. Recurrent abscesses Last Dermatology office visit: 06/10/15 SUBJECTIVE Ms. Bearden is a 20 y.o. female who presents for follow up for a history of abscess of thebuttocks and groin. She is much better since the last visit and has not had any new abscesses. She has stopped using the Hibiclens but is still using the mupirocin. She is very happy that they has resolved. She just has some scarring on her buttocks, but this does not bother her. She has continued with the remicade and is doing well. Her psoriasis is not active at this time. She has no further cutaneous concerns. For full Medical, Surgical, Family, and Social histories, please see the History section of this encounter in the electronic chart which I have personally reviewed. For Review of Systems, Medications and Allergies, please see those sections of this encounter in the electronic chart which I have also reviewed. She has a current medication list which includes the following prescription(s): chlorhexidine, infliximab, medroxyprogesterone, and tacrolimus, and the following Facility-Administered Medications: [...] normal with the addition of the following comm ents: There were no lesions suspicious for malignancy. -buttocks: scarring with no signs of active disease ASSESSMENT 1. History of abscess on buttocks and groin, resolved PLAN 1. She is doing much better today and has has no new new abscesses -continue with mupirocin to nares and johnna-anally one week out of the month -continue to use the Hibiclens about once weekly for maintenance -RTC as needed She will f/u as planned or in the interim should problems arise. Irma Truong MD 09/16/2015 8:57 I saw and examined the patient with the resident/fellow. I agree with the findings and plan of caredocumented in the resident's/fellow's note. Komal Gaming MD 09/16/2015 12:51 * Kathy Guevara - 09/16/2015 0855 EST Review of Systems Constitutional: Negative for fever, [...] sleep disturbance. The patient is not nervous/anxious. Kathy Guevara 8:55 09/16/2015 documented in this encounter Plan of Treatment Not on file documented as of this encounter Visit Diagnoses Diagnosis Scar- Primary Scar condition and fibrosis of skin History of drainage of abscess Personal history of surgery to other organs documented in this encounter Care Teams Sales Strategy Manager Relationship Specialty Start Date End Date Sofy Nicolas MD 1 [facility] 3 [place] [address] PCP - General 06/27/15 documented as of this encounter
--- OUTSIDE RECORDS SUMMARY | 2024-08-21 14:09 | XMS_ITS | Encounter Summary ---
Author Organization [facility] Address [address] [place] [address] Care Team Providers Care Mailroom Assistant Name Role Phone Sofy Nicolas MD Primary Care Provider [phone] Reason for Visit * Reason Comments Clinic Admin Medications Here for Remica de 300 mg which she gets every 8 weeks for uveitis. No eye pain or blurred vision. FUR with new technical agronomist next month. Encounter Details Date Type Department Care Team (Late st Contact Info) Description 02/15/2017 9:00 EDT Office Visit [facility] - [address] [address] Unknown, Provider, MD Pond, Juve An MD [address] [facility], [address] [place] [address] Assoc, Rheum Health Uveitis (Primary [...] Sign Reading Time Taken Comments Blood Pressure 106/58 02/15/2017 1150 EDT Pulse 54 02/15/2017 1150 EDT Temperature 37.2 ??C (99 ??F) 02/15/2017 1150 EDT Respiratory Rate 16 02/15/2017 0918 EDT Oxygen Saturation - - Inhaled Oxygen Concentration - - Weight 58.1 kg (128 lb) 02/15/2017917 EDT Height 168.9 cm (5' 6.5) 02/15/2017 09 EDT Body Mass Index 20.35 02/15/2017917 EDT documented in this encounter Functional Status [...] * Patient Instructions* Mason Kern RN - 02/15/2017 9:00 EDT Infusion Therapy Visit Intravenous Biologic [...] medication therapy, please call our office at [phone] or toll free at ; Ext [phone]. For additional educational information on arthritis you may go to the [employer] as a resource. The web link is www.arthritis.org. documented in this encounter Progress Notes * Mason Kern RN - 02/15/2017 0900 EDT Biologic Infusion Therapy Infliximab (Remicade) Patient???s last infusion was tolerated well. Patient is free of signs and symptoms of infection. No recent or upcoming surgery scheduled. Premedication administered? Yes Acetaminophen 325 mg PO See Facility Administered Medication History for pre-med and infusion documentation. Blood Drawn: Yes, CBCD, CMP, CRP and ESR, FUR appointments Patient EducationTopic: Remicade Method: Verbal Taught to: Patient Barriers: None Outcomes: independent Today's infusion was tolerated well by the patient. Dose Administered: 300 mg Post infusion instruction provided to patient. Patient to call office for any adverse effects. I was supervised by Dr. Juve Pond who was present and immediately available in the office suite. MASON KERN RN 02/15/2017 9:57 documented in this encounter Plan of Treatment Not on file documented as of this encounter Procedures Procedure Name Priority Date/Time Associated Diagnosis Comments SED RATE Routine 02/15/2017 9:16 EDT Uveitis Encounter for long-term (current) use of medications COMPLETE BLOOD COUNT AND DIFFERENTIAL Routine 02/15/2017 9:16 EDT Uveitis C REACTIVE PROTEIN Routine 02/15/2017 9: 16 EDT Uveitis Encounter for long-term (current) use of medications COMPREHENSIVE METABOLIC PANEL (CMP) Routine 02/15/2017 9:16 EDT Uveitis documented in this encounter Results * C REACTIVE PROTEIN (02/15/2017 9:16 EDT) C Reactive Protein <7.0 <10.0 mg/L 02/15/2017 11:20 EDT [facility] Blood specimen (specimen) BLOOD SPECIMEN / Unknown 02/15/2017 9:16 EDT 02/15/2017 10:03 EDT us Juve Pond MD CHEMISTRY & BLOOD GAS ORDERABLES Final Result [facility] [address] [place] [address] * (ABNORMAL) SED. RATE:WESTERGREN (02/15/2017 9:16 EDT) Pathologist [facility] Sed. Rate Westergren 24(H) 0 - 20 mm/hr 02/15/2017 11:00 EDT [facility] Blood specimen (specimen) BLOOD SPECIMEN / Unknown 02/15/2017 9:16 EDT 02/15/2017 10:03 EDT us MickieJuve Pond MD HEMATOLOGY & PF4 ORDERABLES Nessa l Result Performing Organization Address City/[facility] Co de Phone Number [facility] [address] [place] [address] * (ABNORMAL) COMPREHENSIVE METABOLIC PANEL (CMP) (02/15/2017 9:16 EDT) [facility] Potassium 4.4 3.5 - 5.0 mEq/L 02/15/2017 11:20 [facility] Sodium 143 136 - 145 mEq/L 02/15/2017 11:20 [facility] Chloride 104 96 - 110 mEq/L 02/15/2017 11:20 [facility] CO2 22 22 - 32 mEq/L 02/15/2017 11:20 [facility] Total Alkaline Phosphatase 65 38 - 126 U/L 02/15/2017 11:20 [facility] Bilirubin, Total <0.5 <1.4 mg/dl 02/16/20 17 11:20 [facility] AST 24 15 - 46 U/L 02/15/2017 11:20 [facility] ALT 18 <53 U/L 02/15/2017 11:20 [facility] Albumin 4.9 3.4 - 4.9 g/dl 02/15/2017 11:20 [facility] Total Protein 8.7(H) 6.3 - 8.2 g/dl 02/15/2017 11:20 [facility] Creatinine 0.60 0.52 - 1.04 mg/dl 02/15/2017 11:20 [facility] GFR, Calculated 132 >60 ml/min/1.7 3m2 02/15/2017 11:20 [facility] Comment: eGFR calculated using CKD-EPI equation for non Americans. Multiply eGFR by 1.16 for Americans. BUN 6(L) 10 - 26 mg/dl 02/15/2017 11:20 [facility] Calcium 9.8 8.5 - 10.5 mg/dl 02/15/2017 11:20 [facility] Calculated Calcium 9.1 8.5 - 10.5 mg/dl 02/15/2017 11:20 [facility] Glucose, Serum 95 70 - 100 mg/dl 02/15/2017 11:20 [facility] Fasting? Unknown 02/15/2017 10:03 [facility] Blood specimen (specimen) BLOOD SPECIMEN / Unknown 02/15/2017 9:16 EDT 02/15/2017 10:03 EDT us Juve Pond MD CHEMISTRY & BLOOD GAS ORDERABLES Final Result [facility] [address] [place] [address] * HEMAGRAM AND DIFFERENTIAL (02/15/2017 9:16 EDT) WBC 6.19 4.0 - 12.4 K/cmm 02/15/2017 10:44 [facility] RBC 4.23 3.86 - 5.04 M/cmm 02/15/2017 10:44 [facility] Hemoglobin 13.0 11.6 - 15.2 gm/dl 02/15/2017 10:44 [facility] HCT 37.7 34.9 - 44.4 % 02/15/2017 10:44 [facility] MCV 89 81 - 98 fl 02/15/2017 10:44 [facility] MCH 30.7 26.7 - 33.3 pg 02/15/2017 10:44 [facility] MCHC 34.5 32.1 - 35.9 gm/dl 02/15/2017 10:44 [facility] RDW-CV 11.9 <14.7 % 02/15/2017 10:44 [facility] RDW-SD 38.5 <50.4 fl 02/15/2017 10:44 [facility] PLT 301 141 - 377 K/cm 02/15/2017 10:44 [facility] MPV 10.0 9.5 - 12.7 fl 02/15/2017 10:44 [facility] % Neutrophils 49.6 % 02/15/2017 10:44 [facility] % Lymphocytes 35.9 % 02/15/2017 10:44 [facility] % Monocytes 10.2 % 02/15/2017 10:44 [facility] % Eosinophils 3.6 % 02/15/2017 10:44 [facility] % Basophils 0.5 % 02/15/2017 10:44 [facility] % Immature Grans 0.2 % 02/15/2017 10:44 [facility] ABS Neutrophils 3.08 2.20 - 8.85 K/cm 02/15/2017 10:44 [facility] ABS Lymphs 2.22 1.09 - 3.30 K/cm 02/15/2017 10:44 [facility] ABS Monocytes 0.63 0.1 - 0.8 K/cm 02/15/2017 10:44 [facility] ABS Eosinophils 0.22 0.03 - 0.61 K/cm 02/15/2017 10:44 [facility] ABS Basophils 0.03 0.01 - 0.11 K/cm 02/15/2017 10:44 [facility] ABS Immature Grans 0.01 0 - 0.06 K/cm 02/15/2017 10:44 [facility] Type of Diff: Automated 02/15/2017 10:44 [facility] Blood specimen (specimen) BLOOD SPECIMEN / Unknown 02/15/2017 9:16 EDT 02/15/2017 10:03 EDT Juve Pond MD PACKAGES & DNA PROBE ORDERABLES Final Result [facility] [address] [place] [address] documented in this encounter Visit Diagnoses Diagnosis [...] (Without Time Specified), 1 dose, Starting on Wed02/15/17 at 0945, Until Wed02/15/17 at 0925, RoutineIndications:Uveitis Given 02/15/2017 9:25 EDT 325 mg inFLIXimab (REMICADE) 300 mg in sodium chloride (NS) 0.9 % 250 mL IVPB 300 mg, intravenous, Administer over 120 Minutes, Once (Without Time Specified), 1 dose, Starting on Wed02/15/17 at 0945, Until Wed02/15/17 at 1200, RoutineIndications:Uveitis New Bag 02/15/2017 10:00 EDT 300 mg 125 mL /hr sodium chloride 0.9 % (NS) infusion at 25 mL/hr, intravenous, CONTINUOUS, Starting on Wed02/15/17 at 0945, Until Wed02/15/17 at 1426, RoutineIndications:Uveitis New Bag 02/15/2017 9:30 EDT 25 mL/h r documented in this encounter Orders Medications Ordered That Gus ht Not Have Been Administered Count Last Ordered Date First Ordered Date acetaminophen (TYLENOL) tablet 325-650 mg 1 02/15/2017 diphenhydrAMINE (BENADRYL) c apsule 25-50 mg 1 02/15/2017 diphenhydrAMINE (BENADRYL) i njection 25-50 mg 1 02/15/2017 methylPREDNISolone sodium WALLER CCINATE (SOLU-MEDROL) injection 50-100 mg 1 02/15/2017 Nursing Count Last Ordered Date First Orde red Date CARE ORDER/INSTRUCTION 1 02/15/2017 NURSING COMMUNICATION 1 02/15/2017 VITAL SIGNS 1 02/15/2017 VITAL SIGNS - NOTIFY MD 1 02/15/2017 documented in this encounter Care Teams Mailroom Assistant Relationship Specialty Start Date End Date Sofy Nicolas MD 1 [facility] [address] [place] [address] PCP - General 06/27/15 documented as of this encounter
--- OUTSIDE RECORDS SUMMARY | 2024-08-21 14:09 | XMS_ITS | Encounter Summary ---
Author Organization [facility] Address [address] [place] [address] Care Team Providers Care Casket Trimmer Name Role Phone Sofy Nicolas MD Primary Care Provider [phone] Reason for Visit * Reason Comments Contraception Encounter Details Date Type Department Care Team ([facility] st Contact Info) Description 12/04/2015 15:30 EDT Nurse Only [facility] Care - [address] [id number] Unknown, Provider, Nurse, Proc [facility] Juan Carlos Pulgeeta, RN Contraception, generic surveillance (Primary Dx) Social History Tobacco Use Types [...] Sign Reading Time Taken Comments Blood Pressure 111/61 12/04/2015 1536 EDT Pulse - - Temperature - - [...] 10/02/2015 8:06 EST documented in this encounter Progress Notes * Gianni Moralez RN - 12/04/2015 1529 EDT Last depo 09/12/15 due Nov 28- If given 12/04/15 next due February 18 - Mar 0401/2016 Gianni Moralez RN Patient here for Depo vaccine. Date of last Depo: 09/12/15 # of weeks since last injection: due Nov 28- Patient reports the following concerns since last office visit: None First time injection / or if greater than 13 weeks since last injection a urine test willbe done. If done the result is: not tested. Symptoms listed above were discussed with the following provider: N/A. HCG Urine test not done. If DONE result is: not tested. Date of next Depo injection due: next due February 18 - Mar 0401/2016. Reviewed signs and symptoms that warrant a telephone call or office visit: Yes. Depo injection site: upper arm, Lot #: [id number] Relevant patient education relating to this was discussed: Yes Patient Education Topic: Depo Method: Verbal Taught to: Patient Barriers: None Outcomes: verbalized understanding Signature: Gianni Moralez RN . documented in this encounter Plan of Treatment Not on file documented as of this encounter Visit Diagnoses Diagnosis Contraception, generic surveillance- Primary Contraceptive surveillance, unspecified documented in this encounter Administered Medications Inactive [...] mg Left Deltoid documented in this encounter Discontinued Medications Medication Sig Discontinue Reason Start Date End Da te medroxyPROGESTERone (DEPO-PROVERA) 150 mg/mL injection Inject 150 mg into the muscle every 12 weeks 12/27/2014 12/04/2015 documented as of this encounter Care Teams Casket Trimmer Relationship Specialty Start Date End Date Sofy Nicolas MD 1 [facility] [address] [place] [id number] PCP - General 06/27/15 documented as of this encounter
--- OUTSIDE RECORDS SUMMARY | 2024-08-21 14:10 | XMS_ITS | Encounter Summary ---
Author Organization [facility] Address [address] [place] [address] Care Team Providers Care Golf Ball Cover Treater Name Role Phone Nuvia Alejandra MD Primary Care Provider [phone] Reason for Visit * Reason Comments Skin Exam Painful lesions on b uttocks; h/o psoriatic arthiritis * Consult (3 - 10 Business Days) - Specialty Report Received Specialty Diagnoses / Procedures Referred By Bhavana loyola Referred To Contact Dermatology Diagnoses Furuncle of skin or subcutaneous tissue Psoriasis Juve Pond Chi, MD Phone: tel: fax: [facility] Dermatology [address]th [address] [address] Phone: tel: fax: Referral ID Status Reason Start Date Expiration Date Visits Requested Visits Authorized [id number] Specialty Report Received Specialty Services Required 05/29/2015 1 1 Encounter Details Date Type Department Care Team (Late st Contact Info) Description 05/31/2015 15:45 EDT Office Visit [facility] Dermatology 3rd [address] [address] Komal Gaming MD [address] [place] [address] Abscess (Primary Dx); Furuncle Social History Tobacco Use Types Packs/Day Years [...] on file documented as of this encounter Discharge Diagnoses Diagnosis L02.91 Cutaneous abscess, unspecified-L02.91[ICD-10-CM] L02.92 Furuncle, unspecified-L02.92[ICD-10-CM] documented in this encounter Patient Instructions * Patient Instructions* Komal Gaming MD - 05/31/2015 16:36 EDT When you have acces to a bath - soak for 10-20 minutes in a half tub of water with 1/4 cup of bleach mixed in. You can do this 2-3 time per week (or both days this weekend) When you get back to [facility] daily and wash the affected areas daily with hibiclens soap Take doxycycline 100 mg BID for the next 1 week follow up in our clinic in one week documented in this encounter Ordered Prescriptions Prescription Sig Dispense Quantity Refills Last Filled Start Date End Date doxycycline (VIBRAMYCIN) 100 mg capsule Take 1 Cap by mouth 2 times daily for 7 days 14 Cap 0 05/31/2015 06/06/2015 documented in this encounter Progress Notes * Komal Gaming MD - 06/03/2015 1153 EDTQuick Note: Please let the patient know that her culture came back consistent with Staph aureus (NOT MRSA though). She should continue with her course of doxycycline and follow up with me on 06/06/15. * Komal Gaming MD - 06/01/2015 1238 EDT Dermatology Outpatient Visit Note SUBJECTIVE Chief Complaint Patient presents with ??? Skin Exam Painful lesions on buttocks; h/o psoriatic arthiritis Problem List 1. 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 Psoriasis - thought possibly to be secondary to Remicade History of Present Illness: Orlando Bearden is a 20 y.o. 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 She reports that over the summer months she started to develop painful boils and inflamed lesions, some of which would drain yellow and white fluid. The lesions would occasionally feel better when they started to drain. She had been treating the lesions directly with Protopic cream or ointment as she wasn'tsure if they would be related to her psoriasis. The patient reports that she had been getting Remicade infusions at home in [facility] over the summer, and when she presented this week for her Remicade infusions here, Dr. Pond recommended that this medication be held until further workup of her groin lesions could be done. She denies any fevers, chills, nausea or vomiting. She has no other concerns at this time. Review of Systems: Pertinent positives as noted above in progress notes section and all others are negative. Pt's past medical, family, and social history have been reviewed as above. Meds: Pt has a current medication list which includes the following prescription(s): doxycycline, infliximab, medroxyprogesterone, and tacrolimus. OBJECTIVE VS: There were no vitals taken for this visit. Physical Exam: This is a pleasant, alert and oriented, well-nourished, well-groomed female in no acute distress. She has Edmond type II skin. Cutaneous examination was done of the groin and buttocks. - Over the inferior buttocks, mons, labia and proximal inner thighs there is diffuse background erythema studded with too numerous to count 2-4 mm inflamed pustules. - On the right proximal inner thigh there is a 4 x 2 cm erythematous, tender, fluctuant plaque - On the right inferior medial buttock there is a 4 x 4 cm dusky, tender, fluctuant plaque ASSESSMENT 1. Abscesses and furuncles of the groin, buttocks, and proximal thighs - may be occuring secondary to skin breakdown in the setting of inverse psoriasis PLAN 1. Patient education given on the above assessments. 2. For the two abscesses, I recommended incision and drainage (I&D) - the patient agrees with this plan. See procedure note below. 3. Given the extensive nature of her lesions recommended that we treat with doxycycline 100 mg BID for one week in case of MRSA. 4. Bacterial swabs were taken from the purulent drainage from the two abscesses and sent for bacterial smear and culture. 5. Recommended that she try bleach bathes 2-3 times per week if possible (she will have access to Brickflow tub this weekend at her parents home), and otherwise she can wash the area daily with Hibiclens while showering. 6. Return to clinic in 1 week, sooner as needed. Can address treatment of possible MRSA vs. MSSA staph carriage at that time. Procedure Note: Incision and Drainage After informed consent, the right proximal inner thigh and right medial buttocks were prepped with chlorhexidine and lidocaine with 1% epinephrine was used for anesthesia. A sterile #15 blade was used for incision. The contents of the lesion were carefully extracted and the wound was left to drain and dressed with a clean gauze. No complications. Komal Gaming MD 06/01/2015 12:38 * Ean Farmer - 05/31/2015 1551 EDT Review of Systems Constitutional: Negative for [...] The patient is not nervous/anxious. Ean Farmer 05/31/2015 15:51 Komal Gaming MD 06/01/2015 12:52 documented in this encounter Plan of Treatment Not on file documented as of this encounter Procedures Procedure Name Priority Date/Time Associated Diagnosis Comments BACTERIAL CULTURE/SMEAR Routine 05/31/2015 16:14 EDT Furuncle BACTERIAL CULTURE/SMEAR Routine 05/31/2015 16:14 EDT Abscess documented in this encounter Results * BACTERIAL CULTURE/SMEAR, OTHER (05/31/2015 16:14 EDT) Gram Smear Result Few Polys 05/31/2015 22:43 EDT [facility] Gram Smear Result No bacteria seen 05/31/2015 22:43 EDT [facility] Result Rare STAPHYLOCOCC US AUREUS 06/03/2015 10:20 EDT [facility] Specimen of unknown material (specimen) UNKNOWN / Unknown 05/31/2015 16:14 EDT 05/31/2015 19:38 EDT Comment:Specimen submitted o n a swab Narrative Organism Antibiotic Method Susceptibility Rare staphylococcus aureus Susceptibility comment SUSCEPTIBILITY (ISMAEL) Rare staphylococcus aureus Susceptibility comment SUSCEPTIBILITY (ISMAEL) Susceptible to nafcillin, cephalosporins and other beta lactam antibiotics (mecA gene product absent). Rare staphylococcus aureus Oxacillin SUSCEPTIBILITY (ISMAEL) <=0.25: Susceptible Rare staphylococcus aureus Cefazolin SUSCEPTIBILITY (ISMAEL) Susceptible Rare staphylococcus aureus Vancomycin SUSCEPTIBILITY (ISMAEL) 1: Susceptible Rare staphylococcus aureus Erythromycin SUSCEPTIBILITY (ISMAEL) <=0.25: Susceptible Rare staphylococcus aureus Clindamycin SUSCEPTIBILITY (ISMAEL) 0.25: Susceptible Rare staphylococcus aureus Ciprofloxacin SUSCEPTIBILITY (ISMAEL) <=0.5: Susceptible Rare staphylococcus aureus Tetracycline SUSCEPTIBILITY (ISMAEL) <=1: Susceptible Rare staphylococcus aureus Trimethoprim-Sulfamet hoxazole SUSCEPTIBILITY (ISMAEL) <=10: Susceptible Komal Gaming MD MICROBIOLOGY - GENERAL ANDREE PARUL Final Result [facility] [address] [place] [address] * BACTERIAL CULTURE/SMEAR, OTHER (05/31/2015 16:14 EDT) Gram Smear Result Many Polys 05/31/2015 21:54 EDT [facility] Gram Smear Result No bacteria seen 05/31/2015 21:54 EDT [facility] Result Few STAPHYLOCOCC US AUREUS 06/02/2015 8:21 EDT [facility] Specimen of unknown material (specimen) UNKNOWN / Unknown 05/31/2015 16:14 EDT 05/31/2015 19:37 EDT Comment:Specimen submitted o n a swab Narrative Organism Antibiotic Method Susceptibility Few staphylococcus aureus Susceptibility comment SUSCEPTIBILITY (ISMAEL) Few staphylococcus aureus Susceptibility comment SUSCEPTIBILITY (ISMAEL) Susceptible to nafcillin, cephalosporins and other beta lactam antibiotics (mecA gene product absent). Few staphylococcus aureus Oxacillin SUSCEPTIBILITY (ISMAEL) 0.5: Susceptible Few staphylococcus aureus Cefazolin SUSCEPTIBILITY (ISMAEL) Susceptible Few staphylococcus aureus Vancomycin SUSCEPTIBILITY (ISMAEL) <=0.5: Susceptible Few staphylococcus aureus Erythromycin SUSCEPTIBILITY (ISMAEL) >=8: Resistant Few staphylococcus aureus Clindamycin SUSCEPTIBILITY (ISMAEL) 1024: Resistant Few staphylococcus aureus Ciprofloxacin SUSCEPTIBILITY (ISMAEL) <=0.5: Susceptible Few staphylococcus aureus Tetracycline SUSCEPTIBILITY (ISMAEL) <=1: Susceptible Few staphylococcus aureus Trimethoprim-Sulfamet hoxazole SUSCEPTIBILITY (ISMAEL) <=10: Susceptible Komal Gaming MD MICROBIOLOGY - GENERAL ORDDon TERAN Final Result [facility] [address] [place] [address] documented in this encounter Visit Diagnoses Diagnosis Abscess- Primary Cellulitis and abscess of unspecified site Furuncle Carbuncle and furuncle of unspecified site documented in this encounter Discontinued Medications Medication Sig Discontinue Reason Start Date End Da te doxycycline (VIBRAMYCIN) 100 mg capsule Take 100 mg by mouth 2 times daily. Reorder 05/31/2015 azithromycin (ZITHROMAX) 250 mg tablet Take 2 tablets (500 mg) on Day 1, followed by 1 tablet (250 mg) once daily on Days 2 through 5. 11/30/2014 06/01/2015 FLUoxetine (PROZAC) 20 mg tablet Take 20 mg by mouth daily. 06/01/2015 documented as of this encounter Care Teams Golf Ball Cover Treater Relationship Specialty Start Date End Date Nuvia Alejandra MD [address] [place] [address] PCP - General Primary Care 12/19/14 06/26/15 documented as of this encounter
--- OUTSIDE RECORDS SUMMARY | 2024-08-21 14:10 | XMS_ITS | Encounter Summary ---
Author Organization [facility] Address [address] [place] [address] Care Team Providers Care Lav Crewman Name Role Phone Santosh Saldivar MD Primary Care Provider [phone] Reason for Visit * Reason Onset Date Comments Appointment Related 11/29/2014 Encounter Details Date Type Department Care Team ([facility] Contact Info) Description 11/29/2014 Telephone [facility] Rheumatology & Immunology - [address] [id number] Zoe Tomlinson, RN Appointment Related Social History Tobacco Use Types Packs/Day Years Used Date Smoking Tobacco: Never Alcohol Use Standard Drinks/Week Comments No 0 (1 standard drink = 0.6 oz pur e alcohol) Comments No Sex and Gender Information Value Date Recorded Sex Assigned at Not on file Legal Sex Female 18:19 EST Gender Identity Not on file Sexual Orientation Not on file documented as of this encounter Miscellaneous Notes * Telephone Encounter - Zoe Tomlinson RN - 11/29/2014 0906 EDT ----- Message from Juve Pond MD sent at 11/28/2014 14:21 EDT ----- Thanks for the info Nuvia. If the patient can contact us for a new patient appointment, that would be great. Do we have to getprior auth for the Remicade, or is that all set? Juve An ----- Message ----- From: Nuvia Patrick MD Sent: 11/28/2014 13:05 To: Juve Pond MD [facility], I am writing about this 19 year old female with idiopathic chronic uveitis who is currently receiving remicade and would like a referral to adult rheumatology and to you in particular as you were recommended by her new PCP Dr. Alejandra in [facility]. I initially treated Orlando when she was diagnosed around age 9 or so and she was seen at [facility] for a while. When I left [facility] followed her and as a [employer] student I [facility]. She prefers to be seen in an adult clinic and she asked that I contact you to take over her care. She is currently getting remicade every 8 weeks with apparently good control of her uveitis. She sees Dr. Franklin in [facility] but has been seen by Dr. Osei Golden in the past as well. 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 She has many other issues and I hadreferred her to an adolescent PCP here as well, sounds like she is ready for adult providers. I told her to contact your office for an appointment and explained you likely would want to see her before giving her Remicade in your infusion bay. I'll cc you on my note from today. Your office can also contact her if that would work Sunny Pedersen documented in this encounter Plan of Treatment Not on file documented as of this encounter Visit Diagnoses Not on filedocumented in this encounter Care Teams Lav Crewman Relationship Specialty Start Date End Date Santosh Saldivar MD [address] [place] [address] [place] [address] PCP - General 04/13/14 12/18/14 documented as of this encounter
--- OUTSIDE RECORDS SUMMARY | 2024-08-21 14:10 | XMS_ITS | Encounter Summary ---
Author Organization [facility] Address [address] [place] [address] Care Team Providers Care Dairy Equipment Installer Name Role Phone Nuvia Alejandra MD Primary Care Provider [phone] Sofy Nicolas MD Primary Care Provider [phone] Encounter Details Date Type Department Care Team (Late st Contact Info) Description 06/03/2015 Telephone [facility] Rheumatology & Immunology - [address] [phone] Juve Pond Chi, MD [address] [place] [address], [address] [place] [address] Social History Tobacco Use Types [...] encounter Miscellaneous Notes * Telephone Encounter - Samia Parekh RN - 06/03/2015 6748 EDT Images from the original note were not included. Juve Pond Chi, MD P Rheumatology Scheduling IV Pool We will tentatively do Remicade on Oct 7- depending on how her skin lesions look on antibiotics. Derm would prefer we wait, but not sure the eye inflammation will not flare. CCLau The appt with Dr. Pond on 06/05 is at 4:00pm. Patient is aware that the IV room has a chair held for her on 06/06 for her infusion if needed. * Telephone Encounter - Cammie Chavez - 06/03/2015 1243 EDT [place] Medicaid approval of Remicade, [id number], 30 units every 56 days for 1 year to 05/28/16. PA#[id number] documented in this encounter Plan of Treatment Not on file documented as of this encounter Visit Diagnoses Not on filedocumented in this encounter Care Teams Dairy Equipment Installer Relationship Specialty Start Date End Date Nuvia Alejandra MD [address] [place] [address] PCP - General Primary Care 12/19/14 06/26/15 Sofy Nicolas MD [address] [facility] [address] [place] [id number] PCP - General 06/27/15 documented as of this encounter
--- OUTSIDE RECORDS SUMMARY | 2024-08-21 14:10 | XMS_ITS | Encounter Summary ---
Author Organization 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 Encounter Details Date Type Department Care Team (Late st Contact Info) Description 12/26/2014 13:40 EDT Office Visit [facility] Rheumatology & Immunology - [address] [id number] Juve Pond Chi, MD [address] [place] [address], [address] [place] [address] Uveitis (Primary Dx); Psoriasis; Elevated LFTs; Low back pain Social History Tobacco Use Types Packs/Day Years [...] Sign Reading Time Taken Comments Blood Pressure 105/70 12/26/2014 1326 EDT Pulse 76 12/26/2014 1326 EDT Temperature - - Respiratory Rate 18 12/26/2014 1326 EDT Oxygen Saturation - - Inhaled Oxygen Concentration - - Weight 55.3 kg (122 lb) 12/26/2014 1326 EDT Height 167.7 cm (5' 6.02) 12/26/2014 1326 EDT Body Mass Index 19.68 12/26/2014 1326 EDT Body Mass Index Percentile 25.34% 12/26/2014 132 6 EDT Growth Chart: [facility] (Girls, 2- 20 Years) documented in this encounter Discharge Diagnoses Diagnosis 364.3 IRIDOCYCLITIS NOS[ICD-9-CM] 696.1 OTHER PSORIASIS[ICD-9-CM] documented in this encounter Patient Instructions * Patient Instructions* Juve Pond Chi, MD - 12/26/2014 14:27 EDT Continue current meds. We will try to arrange for Remicade. documented in this encounter Progress Notes * Juve Pond Chi, MD - 12/26/2014 1316 EDT Images from the original note were not included. Subjective: Patient ID: Orlando Bearden is an 19 y.o. female. Chief Complaint Patient presents with ??? Rash under arms, groin, behind ears at time ??? 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 HPI Comments: (Patient is a rambling historian; part of the history is from Dr. Patrick's notes) At the age of 10 yo patient got pink eye which ultimately was dx as uveitis; saw Dr Golden in [place]- no specific etiology found and the diagnosis was idiopathic uveitis. Took steroid drops; started methotrexate injections with no benefit. Eventually started Remicade which she has been on x 9- 10 yrs.Stopped methotrexate on her own due to nausea. She took Remicade monthly initially with good control of the uveitis and eventually tapered down to every 8 weeks for several yrs and then decreased dose but flared with uveitis 2011. Then increased Remicade to monthly again; at some point stopped due to possible reaction and switched to Humira with relapse of the uveitis. Resumed Remicade monthly for past several yrs until last March when she tapered to q 8 weeks infusion. Scheduled for January 23 Remicade infusion in the children's infusion center here. Patient lives in [facility] and would like to receive her summer infusions there. Has had chronic low-grade low back pain for several years. Got psoriasis after Remicade was started- now quiescent; normally has psoriasis behind the ears, or in the groin. Stopped mtx (which had been restarted last September) 2 weeks ago due to lft elevation. Joints that bother the pt currently: Neck: no Low back: aches for past 5 yrs Shoulders: no Elbows: Gets stiff Wrists: Gets stiff Fingers: no Hips: no Knees: tight posteriorly Ankles: no Feet/ toes: Balls of feet ache Joints swelling- denies AM stiffness- denies Pain at night- Elbows, wrists, low back Therapies tried and failed- humira; methotrexate monotherapy Therapies that helped- Steroid drops and Remicade Physical activity/ exercise- Ran cross-country in high school Has had recurrent UTI,s sinus infection over the past several years. Now has mononucleosis.. Normally does 1/2 hr cardio daily but recently cut back because of fatigue from mono. 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 Uveitis ??? Psoriasis ??? High risk medication use ??? Sexually active ??? Depressed mood ??? Chronic back pain Past Medical History Diagnosis Date ??? Psoriasis started on remicade ??? Varicella ??? Joint pain ??? Vision abnormalities ??? Hearing difficulty Past Surgical History Procedure Laterality Date ??? Cataract removal with implant Left 2011 ??? Glaucoma surgery Left ??? Tonsillectomy ??? Refractive surgery 2007, 2012 Family History Problem Relation Age of Onset ??? Ankylosing spondylitis Neg Hx ??? Arthritis-Rheumatoid Neg Hx ??? Inflammatory Bowel Disease Neg Hx ??? Psoriasis Neg Hx ??? Psoriatic arthritis Neg Hx ??? Rheumatologic Disease Neg Hx ??? Scleroderma Neg Hx ??? SLE Neg Hx ??? Ulcerative Colitis Neg Hx ??? Crohn's Disease Neg Hx Social History Substance Use Topics ??? Smoking status: Never Smoker ??? Smokeless tobacco: Never Used ??? Alcohol Use: No Outpatient Prescriptions Marked as Taking for the 12/26/14 encounter (Office Visit) with Juve Pond Chi, MD Medication Sig Dispense Refill ??? FLUoxetine (PROZAC) 20 mg tablet Take 20 mg by mouth daily. ??? inFLIXimab (REMICADE) 100 mg injection Inject 300 mg into the vein every 4 weeks. ??? medroxyPROGESTERone (DEPO-PROVERA) 150 mg/mL injection 150mg IM every 3 months 1 mL 4 ??? TACROLIMUS (PROTOPIC TOP) Apply topically as needed. Allergies Allergen Reactions ??? Ciprofloxacin Hives ??? Clindamycin ??? Penicillins Review of Systems Constitutional: Positive for fever (since Fall with the mono), malaise/fatigue and diaphoresis. Negative for chills and weight loss. HENT: + oral ulcers No dry mouth Eyes: Negative for pain. No dry eyes Respiratory: Positive for shortness of breath. Negative for cough and wheezing. Cardiovascular: Negative for chest pain and palpitations. No raynauds Gastrointestinal: Positive for abdominal pain. Negative for heartburn, nausea, diarrhea, constipation and blood in stool. Genitourinary: Positive for frequency. Negative for dysuria and hematuria. Menses is suppressed Musculoskeletal: Positive for myalgias, back pain and joint pain. Negative for neck pain. Skin: Positive for rash (corners of mouth and face). Negative for itching. No sun sensitive rashes + psoriasis- which came on during Remicade therapy affecting scalp behind the ears. Neurological: Positive for headaches. Negative for tingling, focal weakness and seizures. Endo/Heme/Allergies: Does not bruise/bleed easily. Psychiatric/Behavioral: Negative for depression. The patient is not nervous/anxious and does not have insomnia. All other systems reviewed and are negative. - See HPI Objective: BP 105/70 Pulse 76 Resp 18 Ht 167.7 cm (66.02) Wt 55.339 kg (122 lb) BMI 19.68 kg/m2 Physical Exam Constitutional: She is oriented to person, place, and time. She appears well- developed and well-nourished. No distress. Attractive young female HENT: Head: Normocephalic and atraumatic. [...] cranial nerve deficit. Skin: No rash noted. Psychiatric: She has a normal mood and affect. Her behavior is normal. Vitals reviewed. 11/28/2014 07:45 12/13/2014 10:12 Free T4 0.9 TSH 4.89 Bilirubin, Total <0.5 0.7 ALT 260 (H) 157 (H) AST 179 (H) 71 (H) Total Alkaline Phosphatase 131 (H) 99 Glucose, Serum 87 87 WBC 12.51 (H) 11.86 RBC 4.24 4.06 Hemoglobin 12.7 12.0 HCT 37.5 35.7 MCV 89 88 MCH 30.1 29.5 MCHC 34.0 33.6 PLT 275 396 (H) Sed. Rate Westergren 29 (H) 9 11/28/2014 07:45 12/13/2014 10:12 HE-[place] PANEL IgM positive, IgG positive HBs Antibody, Quant <5.0 Hepatitis B Surface Antibody Negative Hepatitis C Ab Negative Anti Nuclear Ab <40 Rheumatoid Factor <20 L SPINE 2-3 VIEWS 12/14/2014 There are five type lumbar vertebrae. The vertebral body heights are maintained. The disc spaces are maintained. The alignment is anatomic. The sacroiliac joints are symmetric. No discrete fracture is identified within the lumbar spine and visualized portion of the pelvis. Assessment: Plan: 1. Uveitis 2. Psoriasis 3. Elevated LFTs 4. Low back pain Uveitis- Idiopathic according to past workups and reports. HLA-B27 was ordered and presumptively negative? Uveitis has been well controlled on Remicade- continue 300 mg intravenous every 2 months. Patient requests getting her infusions in [facility] during summer break which we will try to arrange for. We will arrange for infusions to be performed here in rheumatology clinic once school is in session. Hold methotrexate for now since LFTs have been elevated. Psoriasis- Mild according to patient and came on after Remicade was started. Rarely, the TNF inhibitors can trigger a paradoxic flare of psoriasis. No treatment needed at this time. Elevated LFTs- Most likely secondary to acute mononucleosis. Levels have been trending down over the past 2 weeks. Patient will get chemistries repeated one week before her next Rituxan infusion to ensure improvement in LFTs. Low back pain- Chronic and low-grade- suspect mechanical etiology. No signs of sacroiliitis on lumbar spine x-ray. Barriers to learning identified: No Patient verbalizes understanding and agrees with plan Yes F/u 4 - 5 mos. We will try to arrange [place] in fall and winter. Copy of this note will be sent to PCP: MD Jvue Godwin Chi, MD documented in this encounter Plan of Treatment Not on file documented as of this encounter Visit Diagnoses Diagnosis Uveitis- Primary Unspecified iridocyclitis Psoriasis Other psoriasis Elevated LFTs Other abnormal blood chemistry Low back pain Lumbago documented in this encounter Care Teams Kiln Stoker Relationship Specialty Start Date End Date Nuvia Alejandra MD [address] [place] [id number] PCP - General Primary Care 12/19/14 06/26/15 documented as of this encounter
--- OUTSIDE RECORDS SUMMARY | 2024-08-21 14:10 | XMS_ITS | Encounter Summary ---
Author Organization [facility] Address [address] [place] [address] Care Team Providers Care Doping Supervisor Name Role Phone Nuvia Alejandra MD Primary Care Provider [phone] Reason for Visit * Reason Onset Date Comments Follow-up 02/15/2015 Encounter Details Date Type Department Care Team ([facility] st Contact Info) Description 02/15/2015 Telephone [facility] Pediatric Rheumatology - [address] [id number] Tamie Barnard, RN Follow-up Social History Tobacco Use Types Packs/Day [...] encounter Miscellaneous Notes * Telephone Encounter - Tamie Barnard, RN - 02/15/2015 6025 EDT Called Orlando to make sure she knew to tell her primary about being Hep B surface ab negative. Called Nuvia Alejandra's office to make sure they know she's due for some lab work and needs Hep Bvaccine again. documented in this encounter Plan of Treatment Not on file documented as of this encounter Visit Diagnoses Not on filedocumented in this encounter Care Teams Doping Supervisor Relationship Specialty Start Date End Date Nuvia Alejandra MD [address] [place] [id number] PCP - General Primary Care 12/19/14 06/26/15 documented as of this encounter
--- OUTSIDE RECORDS SUMMARY | 2024-08-21 14:10 | XMS_ITS | Encounter Summary ---
Author Organization [facility] Address [address] [place] [address] Care Team Providers Care Patch Sander Name Role Phone Santosh Saldivar MD Primary Care Provider [phone] Reason for Referral * Consult (Routine/Next Available) - Specialty Report Received Specialty Diagnoses / Procedures Referred By Bhavana loyola Referred To Contact Rheumatology Diagnoses Uveitis Nuvia Patrick MD Phone: tel: fax: [facility] Rheumatology & Immunology - [address] [address] Phone: tel: fax: Referral ID Status Reason Start Date Expiration Date Visits Requested Visits Authorized [id number] Specialty Report Received Specialty Services Required 11/30/2014 1 1 Question Answer Reason for Request: Uveitis on Remicaid, now adult Reason for Visit * Reason Onset Date Comments Follow-up 11/30/2014 Encounter Details Date Type Department Care Team (Late st Contact Info) Description 11/30/2014 Telephone [facility] Pediatric Rheumatology - [address] [address] Tamie Barnard, RN Follow-up Social History Tobacco [...] Telephone Encounter - Tamie Barnard, RN - 11/30/2014 1347 EDT Spoke with Orlando and reinforced need for eye test as soon as possible and inquired about preferences for transitioning to adult provider. I called adult rheum and was able to get her an appt on 12/26 which I relayed to her. She will decide after that appt whether she wants to keep 01/23 [facility] appt or make one in adult rheum. I also discussed her elevated liver enzymes and reinforced repeating in two weeks after stopping mtx. Orlando verbalized understanding and will make eye doctor appt for December when she's home (currently scheduled for January), will repeat labs, and will go to Dr. Pond appt. documented in this encounter Plan of Treatment Scheduled Referrals Name Type Priority Associated Diagnoses Order Schedule AMB CONS/FOLLOW UP RHEUMATOLOGY Outpatient Referral Routine Uveitis Ordered: 11/30/2014 documented as of this encounter Visit Diagnoses Diagnosis Uveitis- Primary Unspecified iridocyclitis documented in this encounter Care Teams Patch Sander Relationship Specialty Start Date End Date Santosh Saldivar MD [address] [place] [address] PCP - General 04/13/14 12/18/14 documented as of this encounter
--- OUTSIDE RECORDS SUMMARY | 2024-08-21 14:10 | XMS_ITS | Encounter Summary ---
Author Organization [facility] Address [address] [place] [address] Care Team Providers Care Cloth Weigher Name Role Phone Santosh Saldivar MD Primary Care Provider [phone] Reason for Visit * Reason Comments Well Child 19 year check,here a lone. Encounter Details Date Type Department Care Team (Latest Contact Info) Description 11/30/2014 13:00 EDT Health Supervision [facility] Pediatric Primary Care [address] [phone] Sofy Nicolas MD 1 [facility] [address] [place] [address] Bacterial vaginosis (Primary Dx); Uveitis; Psoriasis; Depressed mood; Cellulitis and abscess of unspecified site Social History Tobacco Use Types Packs/Day Years [...] Reading Time Taken Comments Blood Pressure 110/70 11/30/2014 1257 EDT Pulse - - Temperature - - Respiratory Rate - - Oxygen Saturation - - Inhaled Oxygen Concentration - - Weight 55.3 kg (122 lb) 11/30/2014 1257 EDT Height 167.7 cm (5' 6.02) 11/30/2014 1257 EDT Body Mass Index 19.68 11/30/2014 1257 EDT Body Mass Index Percentile 25.55% 11/30/2014 125 7 EDT Growth Chart: [facility] (Girls, 2- 20 Years) documented in this encounter Discharge Diagnoses Diagnosis 616.10 VAGINITIS NOS[ICD-9-CM] documented in this encounter Ordered Prescriptions Prescription Sig Dispense Quantity Refills Last Filled Start Date End Date azithromycin (ZITHROMAX) 250 mg tablet Take 2 tablets (500 mg) on Day 1, followed by 1 tablet (250 mg) once daily on Days 2 through 5. 6 Tab 0 11/30/2014 5 documented in this encounter Progress Notes * Sofy Nicolas MD - 11/30/2014 1410 EDT Subjective: Patient ID: Orlando Bearden is an 19 y.o. female. Chief Complaint Patient presents with ??? Well Child 19 year check,here alone. HPI Here for follow-up of multiple issues, doing well in general. Having a much better semester at school, taking fewer classes, doing less work study. New complaint today: Red bump in left inguinal region, slowly grew over 3 days, seen by Dr. Alejandra 3 days ago, given topical Mupiricin which she just picked up today. Drained some blood and pus yesterday, less swollen today. Still very red. No fevers, chills. No other sites. No uveitis or psoriasis flares since last visit. Transitioning to adult Rheumatology with next Remicade infusion, arrangements already made. Methotrexate treatment is currently on hold for two weeks as AST and ALT were elevated at last lab draw. Saw new pain specialist Dr. Alejandra in [place] who ordered labs and xrays to further evaluate chronic back pain, all results pending. Vaginal discomfort/discharge cleared after treatment of BV with Metrogel Stable and happy with Depo Provera, first injection was on Oct 11. Stil with same male partner, using condoms 100%. Mood has been stable, no thoughts of harming self. Will be seeing someone at the office of Dr. Alejandra to discuss mood next week. Never made an appt at [facility]. Disease Management: N/A Patient Active Problem List Diagnosis ??? Uveitis ??? Psoriasis ??? High risk medication use ??? Sexually active ??? Bacterial vaginosis ??? Depressed mood Past Medical History Diagnosis Date ??? Psoriasis started on remicade ??? Varicella ??? Joint pain ??? Vision abnormalities ??? Hearing difficulty Current Outpatient Prescriptions on File Prior to Visit Medication Sig Dispense Refill ??? doxycycline (VIBRAMYCIN) 100 mg capsule Take 100 mg by mouth 2 times daily. ??? FLUoxetine (PROZAC) 20 mg tablet Take 20 mg by mouth daily. ??? inFLIXimab (REMICADE) 100 mg injection Inject 300 mg into the vein every 4 weeks. ??? medroxyPROGESTERone (DEPO-PROVERA) 150 mg/mL injection 150mg IM every 3 months 1 mL 4 ??? methotrexate 2.5 mg tablet Take 6 Tabs by mouth once a week. 72 Tab 3 ??? TACROLIMUS (PROTOPIC TOP) Apply topically as needed. No current facility-administered medications on file prior to visit. Allergies Allergen Reactions ??? Ciprofloxacin Hives ??? Clindamycin ??? Penicillins Social History Substance Use Topics ??? Smoking status: Never Smoker ??? Smokeless tobacco: Not on file ??? Alcohol Use: No Review of Systems - See HPI Objective: BP 110/70 Ht 167.7 cm (66.02) Wt 55.339 kg (122 lb) BMI 19.68 kg/m2 41.9% systolic and 64.6% diastolic of BP percentile by age, sex, and height. Physical Exam Constitutional: She appears well-developed and well-nourished. Mouth/Throat: Mucous membranes are moist. Genitourinary: There is no lesion (ERYTHEMATOUS INDURATED REGION IN LEFT INGUINAL MEDIAL CANAL. SITE OF DRAINAGE VISIBLE, NO SURROUNDING ERYTHEMA OR STREAKING. SLIGHT TTP.) on the left labia. Skin: Skin is warm, dry and intact. No rash noted. Labs: N/A Assessment and Plan: Orlando was seen today for well child. Diagnoses and associated orders for this visit: Bacterial vaginosis: Cleared with Metrogel treatment. Uveitis: Currently stable without flare. Ongoing Remicade infusions, transitioning to Adult Rheumatology. MTX currently held due to elevated LFTs, labs to be redrawn in 2 weeks. Psoriasis: Currently stable without flare. Monitor Depressed mood: Currently stable on Prozac 20mg PO QD but hasn't had depression eval or change in dose in years. Prefers to see MH provider at the office of Dr. Alejandra in [place] (pain specialist). Declines referral to [facility] counseling at this time. Cellulitis and abscess of unspecified site: Comments: left inguinal: Probably due to shaving, folliculitis that became further infected. Has drained but still erythematous. Will prescribe short course PO antibiotics. Allergies to PCN, Clindamycin, Cipro so will try ZPack. Other Orders - azithromycin (ZITHROMAX) 250 mg tablet; Take 2 tablets (500 mg) on Day 1, followed by 1 tablet (250 mg) once daily on Days 2 through 5. Sexually Active: Stable on Depo Provera, if liver enzymes remain elevated may need to switch to another method. Next injection due between Dec 27 and January 10. Using condoms 100%, same male partner as last visit. RTC between Dec 27 and January 10 for contraception follow-up visit [employer] was not used. Sofy Nicolas MD 11/30/2014 14:32 documented in this encounter Plan of Treatment Not on file documented as of this encounter Visit Diagnoses Diagnosis Bacterial vaginosis- Primary Vaginitis and vulvovaginitis, unspecified Uveitis Unspecified iridocyclitis Psoriasis Other psoriasis Depressed mood Cellulitis and abscess of unspecified site documented in this encounter Care Teams Cloth Weigher Relationship Specialty Start Date End Date Santosh Saldivar MD [address] [place] [address] [place] [address] PCP - General 04/13/14 12/18/14 documented as of this encounter
--- OUTSIDE RECORDS SUMMARY | 2024-08-21 14:10 | XMS_ITS | Encounter Summary ---
Author Organization [facility] Address [address] [place] [address] Care Team Providers Care Public Health Sanitarian Technician Name Role Phone Nuvia Alejandra MD Primary Care Provider [phone] Reason for Visit * Reason Onset Date Comments Infusion 05/22/2015 Pt. would like t o schedule Remicade infusion within next 2 weeks. Encounter Details Date Type Department Care Team (Late st Contact Info) Description 05/22/2015 Telephone [facility] Rheumatology & Immunology - [address] [phone] Juve Pond Chi, MD [address] [place] [address], [address] [place] [address] Infusion (Pt. would like to schedule Remicade infusion within next 2 weeks.) Social History Tobacco Use Types Packs/Day Years [...] encounter Miscellaneous Notes * Telephone Encounter - Cammie Chavez - 05/27/2015 1041 EDT Request faxed to insurance * Telephone Encounter - Yancy Honeycutt RN - 05/23/2015 1325 EDT Pt stopped by infusion room, as was unable to retrieve messages re Remicade infusions. Pt formerly infusion pt in [facility] pediatrics, is now pt of Dr. Pond, last seen in November of this year. Pt rec'd her infusions (q [address]) in [facility], and requests that Fall/Winter Infusions be given here, as is a student locally. [place] will check PA,Therapy plan in place by Dr. Patrick.This will be discontinued and rewritten with Dr. Pond's orders. Appointments made for 05/29 at 1pm, ntr only, and for 07/24, 1pm, ntr only. Pt has Jun [address] Pond and MD is aware of these plans. Pt agrees with dates and times. YANCY HONEYCUTT RN * Telephone Encounter - Crystal Mai RN - 05/23/2015 0934 EDT Tried to leave message; work phone - voicemail box is full and cannot leave message, cell phone - voicemail box is not set up. Would like to discuss with pt if infusion will be done in [facility] or here in [place]. Written therapy plan completed (in IV room) if pt needs infusion in [facility]. * Telephone Encounter - Eric Hollis - 05/22/2015 0923 EDT Reason for Call: Infusion Summary/Symptoms: Pt. would like to schedule Remicade infusion within next 2 weeks. Please call. Eric Hollis 05/22/2015 9:23 documented in this encounter Plan of Treatment Not on file documented as of this encounter Visit Diagnoses Not on filedocumented in this encounter Care Teams Public Health Sanitarian Technician Relationship Specialty Start Date End Date Nuvia Alejandra MD [address] [place] [id number] PCP - General Primary Care 12/19/14 06/26/15 documented as of this encounter
--- OUTSIDE RECORDS SUMMARY | 2024-08-21 14:10 | XMS_ITS | Encounter Summary ---
Author Organization [facility] Address [address] [place] [address] Care Team Providers Care Conference Services Coordinator Name Role Phone Santosh Saldivar MD Primary Care Provider [phone] Encounter Details Date Type Department Care Team (Latest Contact Info) Description 11/27/2014 10:59 EDT - 11/27/2014 11:02 EDT Hospital Encounter [address] [address] Nuvia Alejandra MD [address] [place] [address] [phone] Discharge Disposition: Home or Self Care Social [...] as of this encounter Discharge Diagnoses Diagnosis 782.1 NONSPECIF SKIN ERUPT NEC[ICD-9-CM] 780.79 MALAISE[ICD-9-CM] 716.90 ARTHROPATHY NOS-UNSPEC[ICD-9-CM] documented in this encounter Medications at Time of Discharge inFLIXimab (REMICADE) 100 mg injection Inject 300 mg into the vein every 8 weeks doxycycline (VIBRAMYCIN) 100 mg capsule Take 100 mg by mouth 2 times daily. 5 FLUoxetine (PROZAC) 20 mg tablet Take 20 mg by mouth daily. 5 medroxyPROGESTER one (DEPO-PROVERA) 150 mg/mL injectionIndicat ions:Sexually active 150mg IM every 3 months 1 mL 4 10/11/2014 5 methotrexate 2.5 mg tablet Take 6 Tabs by mouth once a week. 72 Tab 3 04/13/2014 5 TACROLIMUS (PROTOPIC TOP) Apply topically as needed. 8 documented as of this encounter Discharge Disposition Disposition Code Departure Means Destination Home or Self Care documented in this encounter Plan of Treatment Not on file documented as of this encounter Visit Diagnoses Not on filedocumented in this encounter Care Teams Conference Services Coordinator Relationship Specialty Start Date End Date Santosh Saldivar MD [address], [place] [address] PCP - General 04/13/14 12/18/14 documented as of this encounter
--- OUTSIDE RECORDS SUMMARY | 2024-08-21 14:10 | XMS_ITS | Encounter Summary ---
Author Organization [facility] Address [address] [place] [address] Care Team Providers Care Domestic Cleaner Name Role Phone Santosh Saldivar MD Primary Care Provider [phone] Reason for Visit * Reason Comments Follow-up Encounter Details Date Type Department Care Team (Latest Contact Info) Description 11/28/2014 9:30 EDT Office Visit [facility] Pediatric Rheumatology - [address] [address] Nuvia Patrick MD [address] [place] [address],[address] [place] [address] Uveitis (Primary Dx); High risk medication use; Elevated liver function tests Social History Tobacco Use Types Packs/Day Years Used Date Smoking Tobacco: Never Alcohol Use Standard Drinks/Week Comments No 0 (1 standard drink = 0.6 oz pur e alcohol) Comments No Sex and Gender Information Value Date Recorded Sex Assigned at Not on file Legal Sex Female 18:19 EST Gender Identity Not on file Sexual Orientation Not on file documented as of this encounter Patient Instructions * Patient Instructions* Nuvia Patrick - 11/28/2014 10:00 EDT Because your liver tests were elevated you should not take any methotrexate at this point until told to restart Get labs the week of 12/10, you can go the the lab and you have standing lab orders Plan for next infusion in 8 weeks I will e mail Dr. Pond that you are interested in changing to adult motion picture operator documented in this encounter Progress Notes * Nuvia Patrick - 11/28/2014 1317 EDT Pediatric Rheumatology Follow-Up Visit 11/28/2014 Orlando Bearden is an 19 y.o. female who presents to the infusion bay for remicade and a follow-up visit. Orlando has a history of chronic idiopathic uveitis for many years who I had initially seen herein [facility] and then followed at [facility] for several years as well. Since I have left [facility] she was fo llowed by Shelton Perez but currently is a [employer] [facility] student and is having her remicade infusions here. Her uveitis has been well controlled on remicade in the past although at one point she was switched to humira and flared. She had other problems I believe with remicade but most recently is getting it every 7 weeks with plans to got to every 8 weeks which has worked well for her in the past. She has no diagnosis of additional autoimmune disorders except was diagnosed with psoriasis after being on antiTNF agents. Her psoriasis is currently well controlled. When last seen frequency of intercurrent infections was discussed and noted to be an issue since starting college and living in the dorm. She had started seeing Dr. Nicolas at [facility] who is an adolescent provider as she had multiple visits to [facility] and was always seeing someone different. She has a followup with Dr. Nicolas in 2 days but has been doing better and has not been ill since her last visit here 2 months ago. Of note her LFTS ARE QUITE ELEVATED TODAY, SHE DENIES ANY ETOH USE. SHE FEELS WELL IN GENERAL WITH NO GI ISSUES, fevers, rash or joint symptoms. She has a new PCP as well in [facility] (Dr. Nuvia Alejandra) whohas ordered some x rays of her back due to hx of back pain and also some additional labs including HLA B 27 which I am fairly certain was obtained at her initial work up although that was a long time ago and I am having trouble finding the result in prism, may have been done at [facility]. I added some hepatitis testing to her labs in light of her LFT elevation. I have asked her to not take any methotrexate and repeat labs in two weeks. She takes MTX every Wednesday. Only real symptoms is fatigue per her report feels well otherwise. Her uveitis is stable, she has seen her eye doctor in the past few weeks and her eyes were fine. I will call Dr. Franklin's office to get that report. Orlando is interested in transitioning to an adult motion picture operator and Dr. Pond was recommended by her new PCP Dr. Alejandra. I told Orlando I can contact Dr. Pond to help facilitate that transition. We called Dr. Franklin's office and although Orlando told me she had been seen recently by Dr. Franklin's office they did not have any visits since 07/2014 and next scheduled for 01/2015. Will have Tamie discuss with her. Interval History: Since last visit Orlando has not experienced any additional symptoms She takes methotrexate 15 mg weekly and has had no significant difficulty with that although she feels a bit off the next day. Outpatient Prescriptions Prior to Visit Medication Sig Dispense Refill [...] TACROLIMUS (PROTOPIC TOP) Apply topically as needed. ??? acetaminophen (TYLENOL) tablet 487.5-812.5 mg ??? diphenhydrAMINE (BENADRYL) capsule 25-50 mg ??? EPINEPHrine (ADRENALIN) injection 0.5 mg ??? inFLIXimab (REMICADE) 300 mg in sodium chloride (NS) 0.9 % 250 mL IVPB ??? methylPREDNISolone sod suc(PF) (SOLU-MEDROL) 40 mg/mL injection 40 mg No facility-administered medications prior to visit. ROS: System Negative Positive Comments Constitutional x fatigue Eyes X ENT x Cardiovascular X Pulmonary X Gastrointestinal X Genitourinary X Muscoloskeletal x Integument/breast x Neurological X Psychiatric X Endocrine X Hematologic/Lymph X Allergic/Immunologic x ?allergic rhinitis Allergies include: Ciprofloxacin; Clindamycin; and Penicillins Past Medical History Diagnosis Date ??? Psoriasis started on remicade ??? Varicella ??? Joint pain ??? Vision abnormalities ??? Hearing difficulty Past Surgical History Procedure Laterality Date ??? Cataract removal with implant Left ??? Glaucoma surgery Left Family History Problem Relation Age of Onset ??? Ankylosing spondylitis Neg Hx ??? Arthritis-Rheumatoid Neg Hx ??? Inflammatory Bowel Disease Neg Hx ??? Psoriasis Neg Hx ??? Psoriatic arthritis Neg Hx ??? Rheumatologic Disease Neg Hx ??? Scleroderma Neg Hx ??? SLE Neg Hx ??? Ulcerative Colitis Neg Hx ??? Crohn's Disease Neg Hx LABS: Office Visit on 11/28/2014 Component Date Value ??? Tests to be added 11/28/2014 T4 FREE,TSH,HEPATITIS C ANTIBODY,HEPATITIS B SURFACE ANTIBODY ??? Diagnosis Code 11/28/2014 SEE PRISM DOS 11/28/14 ??? Number for problems 11/28/2014 7 ??? Accession number 11/28/2014 [id number] FOR FT4,HCAB,HBABQ PT HAS TSH PENDING ON THIS ACCESSION ??? Acknowledge ABP 11/28/2014 Done Results Only on 11/28/2014 Component Date Value ??? Multiple Doc Orders 11/28/2014 This report contains lab results ordered ??? TSH 11/28/2014 4.89 ??? Free T4 11/28/2014 0.9 ??? Hepatitis B Surface Ab 11/28/2014 Negative ? ? HBs Antibody, Quant 11/28/2014 <5.0 ??? Hepatitis C Ab 11/28/2014 Negative Nurse Only on 11/28/2014 Component Date Value ??? WBC 11/28/2014 12.51* ??? RBC 11/28/2014 4.24 ??? Hemoglobin 11/28/2014 12.7 ??? HCT 11/28/2014 37.5 ??? MCV 11/28/2014 89 ??? MCH 11/28/2014 30.1 ??? MCHC 11/28/2014 34.0 ??? RDW-CV 11/28/2014 12.9 ??? RDW-SD 11/28/2014 39.8 ??? PLT 11/28/2014 275 ??? MPV 11/28/2014 7.4* ??? Neutrophils 11/28/2014 26.0* ??? Bands 11/28/2014 1.0 ??? Lymphocytes 11/28/2014 40.0 ??? Atyp Lymphs 11/28/2014 29.0 ??? Monocytes 11/28/2014 4.0 ??? ABS Neutrophils 11/28/2014 3.25 ??? ABS Bands 11/28/2014 0.13 ??? ABS Lymphs 11/28/2014 5.00* ??? ABS Atyp Lymphs 11/28/2014 3.63 ??? ABS Monocytes 11/28/2014 0.50 ??? Differential Comment 11/28/2014 Rev'd by Pathologist ??? Type of Diff: 11/28/2014 Manual ??? Sed. Rate Westergren 11/28/2014 29* ??? C-Reactive Protein 11/28/2014 1.4* ??? Potassium 11/28/2014 4.2 ??? Sodium 11/28/2014 137 ??? Chloride 11/28/2014 97 ??? CO2 11/28/2014 25 ??? Total Alkaline Phosphata* 11/28/2014 131* ? ? Bilirubin, Total 11/28/2014 <0.5 ??? AST 11/28/2014 179* ??? ALT 11/28/2014 260* ??? Albumin 11/28/2014 4.7 ??? Total Protein 11/28/2014 8.1 ??? Creatinine 11/28/2014 0.57 ? ? GFR, Calculated 11/28/2014 >60 ??? BUN 11/28/2014 7* ??? Calcium 11/28/2014 9.8 ??? Calculated Calcium 11/28/2014 9.5 ??? Glucose, Serum 11/28/2014 87 ??? Fasting? 11/28/2014 Unknown Office Visit on 10/11/2014 Component Date Value ??? Test, Urine, P* 10/11/2014 Negative ??? Control Line Present 10/11/2014 Yes ??? Background Clear? 10/11/2014 Yes ??? Specimen Description 10/11/2014 Urine ??? Result-Chlamydia Amp Pro* 10/11/2014 No Chlamydia trachomatis DNA detected by intensive care unit registered nurse mediated amplification. ??? Result-GC Amp Probe 10/11/2014 No Neisseria gonorrhoeae DNA detected by intensive care unit registered nurse mediated amplification. ??? Specimen Description 10/11/2014 Vagina ??? Result-Chlamydia Amp Pro* 10/11/2014 No Chlamydia trachomatis DNA detected by intensive care unit registered nurse mediated amplification. ??? Result-GC Amp Probe 10/11/2014 No Neisseria gonorrhoeae DNA detected by intensive care unit registered nurse mediated amplification. ??? Gram Smear Result 10/11/2014 No yeast seen. ??? Gram Smear Result 10/11/2014 Smear consistent with BACTERIAL VAGINOSIS. ??? Result 10/11/2014 No Trichomonas antigen detected. Results Only on 10/03/2014 Component Date Value ??? Total IgG 10/03/2014 1510 ??? IgG 1 10/03/2014 997* ??? IgG 2 10/03/2014 442 ??? IgG 3 10/03/2014 139.0* ??? IgG 4 10/03/2014 34.6 ??? IgG 10/03/2014 1570* ??? IgA 10/03/2014 423 ??? IgM 10/03/2014 46 ? ? Anti Nuclear Ab 10/03/2014 <40 Office Visit on 10/03/2014 Component Date Value ??? Tests to be added 10/03/2014 QUANTITATIVE IMMUNOGLOBULINS ??? Diagnosis Code 10/03/2014 see prism dos 2.4 ??? Number for problems 10/03/2014 7 ??? Accession number 10/03/2014 [id number] ??? Acknowledge ABP 10/03/2014 Done ??? Tests to be added 10/03/2014 VANESSA ??? Diagnosis Code 10/03/2014 SEE PRISM DOS 2.4 ??? Number for problems 10/03/2014 7 ??? Accession number 10/03/2014 [id number] ??? Acknowledge ABP 10/03/2014 Done Nurse Only on 10/03/2014 Component Date Value ??? WBC 10/03/2014 7.17 ??? RBC 10/03/2014 4.25 ??? Hemoglobin 10/03/2014 13.1 ??? HCT 10/03/2014 38.4 ??? MCV 10/03/2014 90 ??? MCH 10/03/2014 30.7 ??? MCHC 10/03/2014 34.0 ??? RDW-CV 10/03/2014 12.8 ??? RDW-SD 10/03/2014 41.6 ??? PLT 10/03/2014 379* ??? MPV 10/03/2014 7.9 ??? Neutrophils 10/03/2014 63.9 ??? Lymphocytes 10/03/2014 26.7 ??? Monocytes 10/03/2014 6.4 ??? Eosinophils 10/03/2014 2.3 ??? Basophils 10/03/2014 0.7 ??? ABS Neutrophils 10/03/2014 4.58 ??? ABS Lymphs 10/03/2014 1.91 ??? ABS Monocytes 10/03/2014 0.46 ??? ABS Eosinophils 10/03/2014 0.17 ??? ABS Basophils 10/03/2014 0.05 ??? Type of Diff: 10/03/2014 Automated ??? Sed. Rate Westergren 10/03/2014 17 ??? C-Reactive Protein 10/03/2014 0.8 ??? Potassium 10/03/2014 4.7 ??? Sodium 10/03/2014 137 ??? Chloride 10/03/2014 101 ??? CO2 10/03/2014 28 ??? Total Alkaline Phosphata* 10/03/2014 52 ? ? Bilirubin, Total 10/03/2014 <0.5 ??? AST 10/03/2014 33 ??? ALT 10/03/2014 25 ??? Albumin 10/03/2014 4.5 ??? Total Protein 10/03/2014 7.8 ??? Creatinine 10/03/2014 0.62 ? ? GFR, Calculated 10/03/2014 >60 ??? BUN 10/03/2014 9* ??? Calcium 10/03/2014 9.8 ??? Calculated Calcium 10/03/2014 9.7 ??? Glucose, Serum 10/03/2014 82 ??? Fasting? 10/03/2014 YES Results Only on 09/25/2014 Component Date Value ??? Result 09/25/2014 No growth ??? Specimen Description 09/25/2014 Urine ??? Result-Chlamydia Amp Pro* 09/25/2014 No Chlamydia trachomatis DNA detected by intensive care unit registered nurse mediated amplification. ??? Result-GC Amp Probe 09/25/2014 No Neisseria gonorrhoeae DNA detected by intensive care unit registered nurse mediated amplification. Physical Examination: There were no vitals taken for this visit. General: alert, cooperative and no acute distress Growth: weight is stable Head/Neck: No adenopathy and normal thyroid Nose: no crusting noted Mouth: no oral ulcers and palate clear Chest: lungs clear, no wheezes and no rales CVS: RRR, no murmur, normal pulses and no rub Abdomen: soft, , normal bowel sounds, no hepatosplenomegaly and no masses Skin: no rash noted today MSK: all joints have FROM, no pain on ROM, no swelling or limitation of range noted, gait normal, leg lengths are equal , jaw is symmetric, FROM of the cervical spine and has some tenderness over themidback over vertebrae with even light touch, no SI joint tenderness noted. Impression/Plan: Uveitis stable by history, will get note from her eye doctor. Since last visit was 07/2014 need to have updated visit now that she is getting remicade every 8 weeks. LFT elevation likely related to methotrexate, cautioned about use of ETOH, she does not like ETOH and denies any use. No GI symptoms by history. Bili normal, will check LFTs again in a couple of weeks after she has been off methotrexate for two doses. She was given the following instructions that we reviewed. Because your liver tests were elevated you should not take any methotrexate at this point until told to restart Get labs the week of 12/10, you can go the the lab and you have standing lab orders Plan for next infusion in 8 weeks I will e mail Dr. Pond that you are interested in changing to adult motion picture operator She is interested in transition to adult rheumatology and I will help facilitate that. I spent a total of 25 minutes in face to face time with this patient and 15 minutes of that time was spent in counseling and coordination of care as described in the progress note. Nuvia Patrick MD 11/28/2014 15:26 documented in this encounter Plan of Treatment Not on file documented as of this encounter Procedures Procedure Name Priority Date/Time Associated Diagnosis Comments OUTPATIENT ADD-ON Routine 11/28/2014 10: 06 EDT Uveitis High risk medication use documented in this encounter Results * OUTPATIENT ADD-ON (11/28/2014 10:06 EDT) Tests to be added T4 FREE,TSH,HEPA TITIS C ANTIBODY,HEPA TITIS B SURFACE ANTIBODY 11/28/2014 10:07 EDT [facility] Diagnosis Code SEE PRISM DOS 11/28/14 11/28/2014 10:15 EDT [facility] Number for problems 7 11/28/2014 10:07 EDT [facility] Comment:[id number] Accession number [id number] FOR FT4,HCAB,HBAB Q PT HAS TSH PENDING ON THIS 10:15 EDT [facility] Acknowledge ABP Done 5 11:05 EDT [facility] BLOOD SPECIMEN / Unknown 11/28/2014 10:06 EDT 11/28/2014 10:14 EDT us Nuvia Patrick MD HEMATOLOGY & PF4 ORDERABLES Final Result [facility] [address] [place] [address] documented in this encounter Visit Diagnoses Diagnosis Uveitis- Primary Unspecified iridocyclitis High risk medication use Encounter for long-term (current) use of other medications Elevated liver function tests Other abnormal blood chemistry documented in this encounter Care Teams Domestic Cleaner Relationship Specialty Start Date End Date Santosh Saldivar MD [address] [place] [address] PCP - General 04/13/14 12/18/14 documented as of this encounter
--- OUTSIDE RECORDS SUMMARY | 2024-08-21 14:10 | XMS_ITS | Encounter Summary ---
Author Organization [facility] Address [address] [place] [address] Care Team Providers Care Manager News Name Role Phone Nuvia Alejandra MD Primary Care Provider [phone] Reason for Visit * Reason Onset Date Comments Provider Referred 05/29/2015 Encounter Details Date Type Department Care Team (Late st Contact Info) Description 05/29/2015 Telephone [facility] Dermatology 3rd Floor [address] [id number] Federico Puri MD Provider Referred Social History Tobacco Use Types Packs/Day Years [...] encounter Miscellaneous Notes * Telephone Encounter - Radha Camp RN - 05/29/2015 1330 EDT Patient reports she has a history of psoriasis and boils on her buttocks History of Uveitis-on Remicade Concerned that she has a staph infection and will need to wean off medication Patient scheduled 05/31/15 at [facility] with MD RADHA Snyder RN 05/29/2015 13:34 * Telephone Encounter - Lars Pereira - 05/29/2015 1300 EDT Vannessa called from Rheumatology Juve Pond MD is referring patient that is currently on remicad. They would like the patient seen in the next 3-10 days. Bee would like to discuss the referral please call Vannessa at [phone]. documented in this encounter Plan of Treatment Not on file documented as of this encounter Visit Diagnoses Not on filedocumented in this encounter Care Teams Manager News Relationship Specialty Start Date End Date Nuvia Alejandra MD [address] [place] [id number] PCP - General Primary Care 12/19/14 06/26/15 documented as of this encounter
--- OUTSIDE RECORDS SUMMARY | 2024-08-21 14:10 | XMS_ITS | Encounter Summary ---
Author Organization [facility] Address [address] [place] [address] Care Team Providers Care Product Advisor Name Role Phone Santosh Saldivar MD Primary Care Provider [phone] Reason for Visit * Reason Onset Date Comments Results 10/12/2014 Encounter Details Date Type Department Care Team ([facility] st Contact Info) Description 10/12/2014 Telephone [facility] Pediatric Primary Care - [address] [phone] Ama Dietz, RN Results Social History Tobacco Use Types Packs/Day Years [...] Miscellaneous Notes * Telephone Encounter - Ama Dietz, RN - 10/12/2014 4893 EST ----- Message from Sofy Nicolas MD sent at 10/12/2014 11:16 EST ----- Regarding: FYI patient needs treatment Hi All - I am trying to reach Orlando Bearden to inform her that she needs treatment for Bacterial Vaginosis but her cell phone is not taking any messages. I have sent a script for Metronidazole vaginalgel to [facility] pharmacy for her to pick pulling machine operator. If she happens to call the office please let her know this.I will keep trying to reach her by cell phone today. Thank you documented in this encounter Plan of Treatment Not on file documented as of this encounter Visit Diagnoses Not on filedocumented in this encounter Care Teams Product Advisor Relationship Specialty Start Date End Date Santosh Saldivar MD [address] [place] [address] PCP - General 04/13/14 12/18/14 documented as of this encounter
--- OUTSIDE RECORDS SUMMARY | 2024-08-21 14:10 | XMS_ITS | Encounter Summary ---
Author Organization [facility] Address [address] [place] [address] Care Team Providers Care News Agent Name Role Phone Nuvia Alejandra MD Primary Care Provider [phone] Sofy Nicolas MD Primary Care Provider [phone] Reason for Visit * Reason Onset Date Comments Orders (Non Pre-visit) 03/08/2015 Remicade Pre-visit Orders 03/12/2015 Remicade Orders (Non Pre-visit) 03/13/2015 Encounter Details Date Type Department Care Team (Late st Contact Info) Description 03/08/2015 Telephone [facility] Rheumatology & Immunology - [address] [phone] Juve Pond Chi, MD [address] [place] [address], [facility] [address] [place] [address] Orders (Non Pre-visit) (Remicade); Pre-visit Orders (Remicade); Orders (Non Pre-visit) Social History Tobacco Use Types Packs/Day Years [...] encounter Miscellaneous Notes * Telephone Encounter - Jacklyn Poe - 03/14/2015 1234 EDT Faxed orders to [facility] * Telephone Encounter - Jenna Espinal - 03/13/2015 1129 EDT Reason for Call: Orders (Non Pre-visit) and Pre-visit Orders Summary/Symptoms - waiting for order for remicade infusion please fax to them @ [phone] askingto get order very soon so they can get this authorized w/ the insurance Jenna Espinal 03/13/2015 11:29 * Telephone Encounter - Teresa Valdez - 03/12/2015 1110 EDT Reason for Call: Orders (Non Pre-visit) and Pre-visit Orders Summary/Symptoms PCP office asking for order for Remicade infusion so PA can be done there. Please fax to [phone]. Pt habing infusion 03/25 @ [facility]. Onset and Duration? Urgent? Teresa Valdez 03/12/2015 11:10 * Telephone Encounter - Crystal Mai RN - 03/11/2015 0923 EDT Therapy plan order placed in Dr. Pond's box for review and signature. * Telephone Encounter - Eric Hollis - 03/08/2015 1352 EDT Reason for Call: Orders (Non Pre-visit) Summary/Symptoms: Pt. Called to confirm order for Remicade be sent to [facility] prior to03/25/15 Remicade infusion. Please call pt. To confirm. Onset and Duration? Urgent? Eric Covert 03/08/2015 13:52 documented in this encounter Plan of Treatment Not on file documented as of this encounter Visit Diagnoses Not on filedocumented in this encounter Care Teams News Agent Relationship Specialty Start Date End Date Nuvia Alejandra MD [address] [place] [address] PCP - General Primary Care 12/19/14 06/26/15 Sofy Nicolas MD [address] [facility] [address] [place] [id number] PCP - General 06/27/15 documented as of this encounter
--- OUTSIDE RECORDS SUMMARY | 2024-08-21 14:10 | XMS_ITS | Encounter Summary ---
Author Organization [facility] Address [address] [place] [address] Care Team Providers Care Cleaner And Polisher Name Role Phone Santosh Saldivar MD Primary Care Provider [phone] Encounter Details Date Type Department Care Team ([facility] st Contact Info) Description 10/03/2014 Results Only [facility] Pediatric Rheumatology - [address] [address] Nuvia Patrick MD [address] [facility] [place], [place] [id number] Social History Tobacco Use Types Packs/Day Years Used Date Smoking Tobacco: Never Alcohol Use Standard Drinks/Week Comments No 0 (1 standard drink = 0.6 oz pur e alcohol) Comments Unknown Sex and Gender Information Value Date Recorded Sex Assigned at Not on file Legal Sex Female 18:19 EST Gender Identity Not on file Sexual Orientation Not on file documented as of this encounter Plan of Treatment Not on file documented as of this encounter Procedures Procedure Name Priority Date/Time Associated Diagnosis Comments IGG SUBCLASSES Routine 10/03/2014 10:12 EST IMMUNOGLOBULINS Routine 10/03/2014 10:12 EST ANTI NUCLEAR AB (VANESSA), IFA Routine 10/03/2014 10:12 EST documented in this encounter Results * ANTI NUCLEAR ANTIBODY (10/03/2014 10:12 EST) Anti Nuclear Ab <40 0 - 40 Dils 10/04/2014 16:20 [facility] BLOOD SPECIMEN / Unknown 10/03/2014 10:12 EST 10/03/2014 11:54 EST us Nuvia Patrick MD IMMUNOLOGY AND SEROLOGY ORD ERABLES Final Result Performing Organization Address City/[facility]/ZIP Co de Phone Number [facility] [address] [place] [address] * (ABNORMAL) IMMUNOGLOBULINS (10/03/2014 10:12 EST) IgG 1,570(H) 751 - 1,560 mg/dl 10/04/2014 11:22 [facility] IgA 423 82 - 453 mg/dl 10/04/2014 11:22 [facility] IgM 46 46 - 304 mg/dl 10/04/2014 11:22 [facility] BLOOD SPECIMEN / Unknown 10/03/2014 10:12 EST 10/03/2014 11:54 EST us Nuvia Patrick MD CHEMISTRY & BLOOD GAS ORDER GEORGINA Final Result Performing Organization Address [facility] Co de Phone Number [facility] [address] [place] [address] * (ABNORMAL) IGG SUBCLASSES (10/03/2014 10:12 EST) Total IgG 1,510 767 - 1,590 mg/dL 10/05/2014 8:23 [facility] IgG 1 997(H) 341 - 894 mg/dL 10/05/2014 8:23 [facility] IgG 2 442 171 - 632 mg/dL 10/05/2014 8:23 [facility] IgG 3 139.0(H) 18.4 - 106.0 mg/dL 10/05/2014 8:23 [facility] IgG 4 34.6 2.4 - 121.0 mg/dL 10/05/2014 8:23 [facility] BLOOD SPECIMEN / Unknown 10/03/2014 10:12 EST 10/03/2014 11:54 EST us Nuvia Patrick MD CHEMISTRY & BLOOD GAS ORDER GEORGINA Final Result [facility] [address] [place] [address] documented in this encounter Visit Diagnoses Not on filedocumented in this encounter Care Teams Cleaner And Polisher Relationship Specialty Start Date End Date Santosh Saldivar MD [address] [place] [address] PCP - General 04/13/14 12/18/14 documented as of this encounter
--- OUTSIDE RECORDS SUMMARY | 2024-08-21 14:10 | XMS_ITS | Encounter Summary ---
Author Organization [facility] Address [address] [place] [address] Care Team Providers Care Medical Coding Auditor Name Role Phone Nuvia Alejandra MD Primary Care Provider [phone] Reason for Visit * Reason Onset Date Comments Labs Only 12/19/2014 Encounter Details Date Type Department Care Team ([facility] st Contact Info) Description 12/19/2014 Orders Only [facility] Pediatric Rheumatology - Main [address] [id number] Tamie Barnard RN Uveitis (Primary Dx) Social History Tobacco [...] on file documented as of this encounter Progress Notes * Tamie Barnard RN - 12/19/2014 1013 EDT Wrote external orders and sent to [facility] documented in this encounter Plan of Treatment Not on file documented as of this encounter Visit Diagnoses Diagnosis Uveitis- Primary Unspecified iridocyclitis documented in this encounter Care Teams Medical Coding Auditor Relationship Specialty Start Date End Date Nuvia Alejandra MD [address] [place] [id number] PCP - General Primary Care 12/19/14 06/26/15 documented as of this encounter
--- OUTSIDE RECORDS SUMMARY | 2024-08-21 14:10 | XMS_ITS | Encounter Summary ---
Author Organization [facility] Address [address] [place] [address] Care Team Providers Care Saddle Cutter Name Role Phone Santosh Saldivar MD Primary Care Provider [phone] Encounter Details Date Type Department Care Team (Latest Contact Info) Description 10/03/2014 10:14 EST - 10/03/2014 22:00 [facility] Hospital Encounter [facility] [address] [place] [address] Nuvia Patrick MD [address] [facility] [place] [address] Discharge Disposition: Home or Self Care Social [...] as of this encounter Discharge Diagnoses Diagnosis 364.3 IRIDOCYCLITIS NOS[ICD-9-CM] documented in this encounter Medications at Time of Discharge inFLIXimab (REMICADE) 100 mg injection Inject 300 mg into the vein every 8 weeks doxycycline (VIBRAMYCIN) 100 mg capsule Take 100 mg by mouth 2 times daily. 5 FLUoxetine (PROZAC) 20 mg tablet Take 20 mg by mouth daily. 5 methotrexate 2.5 mg tablet Take 6 Tabs by mouth once a week. 72 Tab 3 04/13/2014 5 norethindrone-et hinyl estradiol (MICROGESTIN 09/18, ,) 1-20 mg-mcg per tablet Take 1 Tab by mouth daily. 5 TACROLIMUS (PROTOPIC TOP) Apply topically as needed. 8 documented as of this encounter Discharge Disposition Disposition Code Departure Means Destination Home or Self Care documented in this encounter Plan of Treatment Pending Results Name Type Priority Associated Diagnoses Date /Time OUTSIDE CD - [facility] NEURO Imaging 15:54 EST Scheduled Orders Name Type Priority Associated Diagnoses Orde r Schedule OUTSIDE CD - MRI NEURO Imaging On e Time for 1 Occurrences starting 10/10/2014 until 10/10/2014 documented as of this encounter Visit Diagnoses Not on filedocumented in this encounter Care Teams Saddle Cutter Relationship Specialty Start Date End Date Santosh Saldivar MD [address] [place] [address] PCP - General 04/13/14 12/18/14 documented as of this encounter
--- OUTSIDE RECORDS SUMMARY | 2024-08-21 14:10 | XMS_ITS | Encounter Summary ---
Author Organization [facility] Address [address] [place] [address] Care Team Providers Care Change Management Consultant Name Role Phone Santosh Saldivar MD Primary Care Provider [phone] Reason for Visit * Reason Onset Date Comments Appointment Related 10/25/2014 Encounter Details Date Type Department Care Team ([facility] st Contact Info) Description 10/25/2014 Telephone [facility] - [address] [phone] Sofy Nicolas MD 1 [facility] [address] [place] [address] Appointment Related Social History Tobacco [...] encounter Miscellaneous Notes * Telephone Encounter - Karen Sullivan - 11/20/2014 3265 EDT [facility] Oncology Rehab [address] [facility] [address] Second attempt to contact patient to schedule Steps to Wellness Evaluation. The patient has a voicemail box that has not been set up yet. Karen Sullivan 11/20/2014 14:59 * Telephone Encounter - Karen Sullivan - 10/25/2014 1402 EST [facility] Rehabilitation Therapies [address] [facility] [address] Ambulatory Consult for Physical Therapy received. The patient has a voice mail box that has not been set up yet. Will attempt to contact patient at another time. Karen Sullivan documented in this encounter Plan of Treatment Not on file documented as of this encounter Visit Diagnoses Not on filedocumented in this encounter Care Teams Change Management Consultant Relationship Specialty Start Date End Date Santosh Saldivar [place] [address] PCP - General 04/13/14 12/18/14 documented as of this encounter
--- OUTSIDE RECORDS SUMMARY | 2024-08-21 14:10 | XMS_ITS | Encounter Summary ---
Author Organization [facility] Address [address] [place] [address] Care Team Providers Care Rotary Drum Tanner Name Role Phone Nuvia Alejandra MD Primary Care Provider [phone] Reason for Visit * Reason Onset Date Comments Infusion 01/09/2015 Encounter Details Date Type Department Care Team ([facility] st Contact Info) Description 01/09/2015 Telephone [facility] Rheumatology & Immunology - [address] [address] Juve Pond Chi, MD [address] [place] [address], [address] [place] [address] Infusion Social History Tobacco Use Types Packs/Day [...] * Telephone Encounter - Jacklyn Poe - 01/09/2015 1507 EDT Infusion [facility] 01/23/15 @9:00 documented in this encounter Plan of Treatment Not on file documented as of this encounter Visit Diagnoses Not on filedocumented in this encounter Care Teams Rotary Drum Tanner Relationship Specialty Start Date End Date Nuvia Alejandra MD [address] [place] [id number] PCP - General Primary Care 12/19/14 06/26/15 documented as of this encounter
--- OUTSIDE RECORDS SUMMARY | 2024-08-21 14:10 | XMS_ITS | Encounter Summary ---
Author Organization Health system Address [address] [place] [address] Care Team Providers Care Extractor And Wringer Operator Name Role Phone Santosh Saldivar MD Primary Care Provider [phone] Encounter Details Date Type Department Care Team (Latest Contact Info) Description 12/14/2014 12:06 EDT - 12/14/2014 23:59 EDT Hospital Encounter [facility] [address] [place] [address] Nuvia Alejandra MD [address] [place] [id number] Discharge Disposition: Home or Self Care Social [...] as of this encounter Discharge Diagnoses Diagnosis V72.5 RADIOLOGICAL EXAM NEC[ICD-9-CM] documented in this encounter Medications at Time of Discharge inFLIXimab (REMICADE) 100 mg injection Inject 300 mg into the vein every 8 weeks azithromycin (ZITHROMAX) 250 mg tablet Take 2 tablets (500 mg) on Day 1, followed by 1 tablet (250 mg) once daily on Days 2 through 5. 6 Tab 0 11/30/2014 5 doxycycline (VIBRAMYCIN) 100 mg capsule Take 100 [...] Code Departure Means Destination Home or Self Skilled Nursing documented in this encounter Plan of Treatment Not on file documented as of this encounter Procedures Procedure Name Priority Date/Time Associated Diagnosis Comments L SPINE 2-3 VIEWS 12/14/2014 12: 58 EDT documented in this encounter Results * L SPINE 2-3 VIEWS (12/14/2014 12:58 EDT) Anatomical Region Laterality Modality Other 12/14/2014 12:5 8 EDT 12/18/2014 11:38 EDT Narrative 12/18/2014 11:38 EDT L SPINE 2-3 VIEWS ??12/14/2014 12:58 PM Signs and Symptoms/Comments: ?? Trauma, back pain. Technique: 2 views of the lumbar spine AP and lateral. Findings: There are five type lumbar vertebrae. The vertebral body heights are maintained. The disc spaces are maintained. The alignment is anatomic. The sacroiliac joints are symmetric. No discrete fracture is identified within the lumbar spine and visualized portion of the pelvis. Impression: No acute abnormality identified. Procedure Note Elliot Ratliff MD - 12/18/2014 L SPINE 2-3 VIEWS 12/14/2014 12:58 PM Signs and Symptoms/Comments: Trauma, back pain. Technique: 2 views of the lumbar spine AP and lateral. Findings: There are five type lumbar vertebrae. The vertebral body heights are maintained. The disc spaces are maintained. The alignment is anatomic. The sacroiliac joints are symmetric. No discrete fracture is identified within the lumbar spine and visualized portion of the pelvis. Impression: No acute abnormality identified. us Nuvia Alejandra MD IMG DIAGNOSTIC IMAGING ORDER GEORGINA Final Result documented in this encounter Visit Diagnoses Not on filedocumented in this encounter Care Teams Extractor And Wringer Operator Relationship Specialty Start Date End Date Santosh Saldivar MD [address] [place] [address] PCP - General 04/13/14 12/18/14 documented as of this encounter
--- OUTSIDE RECORDS SUMMARY | 2024-08-21 14:10 | XMS_ITS | Encounter Summary ---
Author Organization [facility] Address [address] [place] [address] Care Team Providers Care Manager Floor Name Role Phone Santosh Saldivar MD Primary Care Provider [phone] Encounter Details Date Type Department Care Team ([facility] st Contact Info) Description 11/28/2014 Results Only [facility] Pediatric Rheumatology - [address] [phone] Nuvia Patrick MD [address] [facility] [place], [place] [phone] Social History Tobacco Use Types Packs/Day Years [...] Associated Diagnosis Comments MULTIPLE DOC ORDERS Routine 11/28/2014 7 :45 EDT HEPATITIS C AB W REFLEX TO HCV RNA BY PCR Routine 11/28/2014 7:45 EDT HEPATITIS B SURFACE ANTIBODY Routine 11/28/2014 7:45 EDT RHEUMATOID FACTOR Routine 11/28/2014 7:4 5 EDT ANTI NUCLEAR AB (VANESSA), IFA Routine 11/28/2014 7:45 EDT TSH Routine 11/28/2014 7:45 EDT T4 FREE Routine 11/28/2014 7:45 EDT documented in this encounter Results * HEPATITIS C ANTIBODY (11/28/2014 7:45 EDT) Hepatitis C Ab Negative 11/28/2014 13:16 EDT [facility] Comment:Reference Range: Neg ative BLOOD SPECIMEN / Unknown 11/28/2014 7:45 EDT 11/28/2014 8:34 EDT Nuvia Patrick MD CHEMISTRY & BLOOD GAS ORDER GEORGINA Final Result Performing Organization Address [facility] Co de Phone Number [facility] [address] [place] [address] * HEPATITIS B SURFACE ANTIBODY (11/28/2014 7:45 EDT) Hepatitis B Surface Ab Negative 11/28/2014 13:16 EDT [facility] Comment: Reference Range: Unvaccinated: ??Negative Vaccinated: ??Positive HBs Antibody, Quant <5.0 mIU/mL 11/28/2014 13:16 EDT [facility] Comment: Patient is presumed to not be immune to infection with HBV. Reference Range: Positive: >=12.0 mIU/mL Indeterminate: >=5.0 to <12.0 mIU/mL Negative: <5.0 mIU/mL BLOOD SPECIMEN / Unknown 11/28/2014 7:45 EDT 11/28/2014 8:34 EDT us Nuvia Patrick MD CHEMISTRY & BLOOD GAS ORDER GEORGINA Final Result Performing Organization Address [facility] Co de Phone Number [facility] [address] [place] [address] * T4 FREE (11/28/2014 7:45 EDT) Free T4 0.9 0.8 - 1.4 ng/dl 11/28/2014 12:11 EDT [facility] BLOOD SPECIMEN / Unknown 11/28/2014 7:45 EDT 11/28/2014 8:34 EDT us Nuvia Patrick MD CHEMISTRY & BLOOD GAS ORDER GEORGINA Final Result [facility] [address] [place] [address] * TSH (11/28/2014 7:45 EDT) Pathologist [facility] TSH 4.89 0.35 - 5.00 uIU/ml 11/28/2014 12:26 EDT [facility] BLOOD SPECIMEN / Unknown 11/28/2014 7:45 EDT 11/28/2014 8:34 EDT us Nuvia Patrick MD CHEMISTRY & BLOOD GAS ORDER GEORGINA Final Result [facility] [address] [place] [address] * RHEUMATOID FACTOR (11/28/2014 7:45 EDT) Pathologist [facility] Rheumatoid Factor <20 <20 IU/ml 11/28/2014 16:06 EDT [facility] BLOOD SPECIMEN / Unknown 11/28/2014 7:45 EDT 11/28/2014 8:34 EDT us Nuvia Patrick MD CHEMISTRY & BLOOD GAS ORDER GEORGINA Final Result [facility] [address] [place] [address] * ANTI NUCLEAR ANTIBODY (11/28/2014 7:45 EDT) Pathologist [facility] Anti Nuclear Ab <40 0 - 40 Dils 11/30/2014 8:37 EDT [facility] BLOOD SPECIMEN / Unknown 11/28/2014 7:45 EDT 11/28/2014 8:34 EDT us Nuvia Patrick MD IMMUNOLOGY AND SEROLOGY ORD ERABLES Final Result Performing Organization Address [facility] Co de Phone Number [facility] [address] [place] [address] * MULTIPLE DOC ORDERS (11/28/2014 7:45 EDT) Multiple Doc Orders This report contains lab results ordered 11/28/2014 8:37 EDT [facility] Comment: by another provider which were collected and processed simultaneously with the orders you requested. If you have any questions, please call Customer Service at [phone]. TOPOGRAPHY UNKNOWN / Unknown 11/28/2014 7:45 EDT 11/28/2014 8:34 EDT us Nuvia Patrick MD CHEMISTRY & BLOOD GAS ORDER GEORGINA Final Result Performing Organization Address [facility] Co de Phone Number [facility] [address] [place] [address] documented in this encounter Visit Diagnoses Not on filedocumented in this encounter Care Teams Manager Floor Relationship Specialty Start Date End Date Santosh Saldivar MD [address] [place] [address] PCP - General 04/13/14 12/18/14 documented as of this encounter
--- OUTSIDE RECORDS SUMMARY | 2024-08-21 14:10 | XMS_ITS | Encounter Summary ---
Author Organization [facility] Address [address] [place] [address] Care Team Providers Care Signal Maintenance Technician Name Role Phone Santosh Saldivar MD Primary Care Provider [phone] Reason for Visit * Reason Onset Date Comments Follow-up 10/13/2014 treatment Encounter Details Date Type Department Care Team (Late st Contact Info) Description 10/13/2014 Telephone [facility] Pediatric Primary Care [facility] [address] [place], [place] [phone] Jyothi Reynolds RN Follow-up (treatment) Social History Tobacco Use Types Packs/Day Years [...] encounter Miscellaneous Notes * Telephone Encounter - Jyothi Reynolds RN - 10/13/2014 1242 EST P/c to [place]. She states Dr. Nicolas did get in touch with her yesterday. She has not picked up the metronidazole yet. Advised importance of getting and getting it started. No barriers to learning identified. [place] understands the issues discussed and agrees with the plan. documented in this encounter Plan of Treatment Not on file documented as of this encounter Visit Diagnoses Not on filedocumented in this encounter Care Teams Signal Maintenance Technician Relationship Specialty Start Date End Date Santosh Saldivar MD [address] [place] [address] [address] PCP - General 04/13/14 12/18/14 documented as of this encounter
--- OUTSIDE RECORDS SUMMARY | 2024-08-21 14:10 | XMS_ITS | Encounter Summary ---
Author Organization [facility] Address [address] [place] [address] Care Team Providers Care Water Control Supervisor Name Role Phone Nuvia Alejandra MD Primary Care Provider [phone] Reason for Visit * Reason Comments Follow-up here alone for follo w up and depo. she says that she is having the same vaginal symptoms as last time. Encounter Details Date Type Department Care Team (Late st Contact Info) Description 12/27/2014 14:30 EDT Office Visit [facility] Pediatric Primary Care - [address] [address] Monse Nicolas MD [address] [address] Bacterial vaginosis (Primary Dx); Depo contraception Discharge Disposition: Auto Discharge Social History Tobacco [...] - Inhaled Oxygen Concentration - - Weight 56.2 kg (124 lb) 12/27/2014 1432 EDT Height 168.3 cm (5' 6.25) 12/27/2014 1432 EDT Body Mass Index 19.86 12/27/2014 1432 EDT Body Mass Index Percentile 27.79% 12/27/2014 143 2 EDT Growth Chart: [facility] (Girls, 2- 20 Years) documented in this encounter Discharge Diagnoses Diagnosis 616.10 VAGINITIS NOS[ICD-9-CM] V25.9 CONTRACEPTIVE MANGMT NOS[ICD-9-CM] documented in this encounter Ordered Prescriptions Prescription Sig Dispense Quantity Refills Last Filled Start Date End Date metroNIDAZOLE (METROGEL) 0.75 % gel Apply 1 Applicatorful topically to affected area daily for 5 days 1 Tube 2 12/27/2014 01/02/20 15 documented in this encounter Discharge Disposition Disposition Code Departure Means Destination Auto Discharge documented in this encounter Progress Notes * Monse Nicolas MD - 12/27/2014 1506 EDT Subjective: Patient ID: Orlando Bearden is an 19 y.o. female. Chief Complaint Patient presents with ??? Follow-up here alone for follow up and depo. she says that she is having the same vaginal symptoms as last time. HPI Comments: Here for next Depo shot. Liver enzymes had elevated and MTX for uveitis had been stopped temporarily by Dr. Patrick, lab panel for EBV was actually positive at last infusion visit so elevated LFTS likely due to recent Ellsworth infection. LFTs improved, next lab draw to recheck due in January. Would like to continue on Depo. Cellulitis treated with ZPAK at last visit continued to improve after all pus drained from site. Never took ZPAK as she felt she was getting better, had discussed it with her father. Has vaginal discharge again similar to 3 months ago. White, external burning, some discomfort with sex. No other discharge or bleeding. Still same boyfriend with 100% condom use. Switched to Dr. Pelaez of Adult Rheum, will get Remicade infusions in [facility] over summer then start infusions with Dr. Pelaez in fall when back here at school. Still taking Prozac 20mg, mood okay. No SI. Plans to return to psychiatrist at home in [facility] anibal, Dr. Pattie Torres. Disease Management: N/A Patient Active Problem List Diagnosis ??? Uveitis ??? Psoriasis ??? High risk medication use ??? Sexually active ??? Depressed mood ??? Chronic back pain Past Medical History Diagnosis Date ??? Psoriasis started on remicade ??? Varicella ??? Joint pain ??? Vision abnormalities ??? Hearing difficulty Current Outpatient Prescriptions on File Prior to Visit Medication Sig Dispense Refill ??? azithromycin (ZITHROMAX) 250 mg tablet Take 2 tablets (500 mg) on Day 1, followed by 1 tablet (250 mg) once daily on Days 2 through 5. 6 Tab 0 ??? doxycycline (VIBRAMYCIN) 100 mg capsule Take 100 mg by mouth 2 times daily. ??? FLUoxetine (PROZAC) 20 mg tablet Take 20 mg by mouth daily. ??? inFLIXimab (REMICADE) 100 mg injection Inject 300 mg into the vein every 4 weeks. ??? methotrexate 2.5 mg tablet Take 6 [...] Review of Systems - See HPI Objective: Ht 168.3 cm (66.25) Wt 56.246 kg (124 lb) BMI 19.86 kg/m2 No BP reading on file for this encounter. Physical Exam Genitourinary: Pelvic exam was performed with patient supine. There is rash (diffuse light erythema) on the right labia. There is no tenderness, no lesion or injury on the right labia. There is rash on the left labia. There is no tenderness, no lesion or injury on the left labia. External mild erythema over labia and mons, no lesions. Opaque thin white/townsend discharge at the introitus. Lymphadenopathy: Right: No inguinal adenopathy present. Left: No inguinal adenopathy present. Labs: N/A Assessment and Plan: Orlando was seen today for follow-up. Diagnoses and associated orders for this visit: Bacterial vaginosis - metroNIDAZOLE (METROGEL) 0.75 % vaginal gel; Place vaginally daily - RTC if worse or no improvement Depo contraception - medroxyPROGESTERone (DEPO-PROVERA) injection 150 mg; Inject 1 mL into the muscle Now - Depo calendar given, next inj due March 14 Depression: Stable on Prozac 20mg. To see psychiatrist at home in [facility] this summer, Dr. Pattie Torres Uveitis: Transitioned to adult Rheumatology Dr. Pelaez, will get Remicade infusions in [facility] this summer while on vacation from [facility]. MTX still held due to elevated LFTs thought to be from Ellsworth. Resolving Ellsworth: LFTs still elevated but coming down Handout on Iron rich foods given as requested. RTC when returns to school for f/u of contraception et al. [employer]ductor Wafer Inspector was not used. Monse Nicolas MD 12/27/2014 15:18 Adolescent Medicine documented in this encounter Miscellaneous Notes * Addendum Note - Monse Nicolas MD - 12/27/2014 1549 EDTAddended by: MONSE NICOLAS on: 12/27/2014 15:49 Modules accepted: Orders, Medications documented in this encounter Plan of Treatment Not on file documented as of this encounter Visit Diagnoses Diagnosis Bacterial vaginosis- Primary Vaginitis and vulvovaginitis, unspecified Depo contraception documented in this encounter Administered Medications Inactive Administered Medications - up to 3 most recent administrations Medication Order MAR Action Action Date Dose Rate Site medroxyPROGESTERone (DEPO-PROVERA) injection 150 mg 150 mg, intramuscular, NOW X1, 1 dose, On Belinda 12/27/14 at 1515, Routine Given 12/27/2014 15:04 EDT 150 mg Left Ar m documented in this encounter Discontinued Medications Medication Sig Discontinue Reason Start Date End Da te medroxyPROGESTERone (DEPO-PROVERA) 150 mg/mL injectionIndications:Sex ually active 150mg IM every 3 months 10/11/2014 12/27/2014 documented as of this encounter Historical Medications * This list may reflect changes made after this encounter. medroxyPROGESTERo ne (DEPO-PROVERA) 150 mg/mL injection Inject 150 mg into the muscle every 12 weeks 12/27/2014 12/04/2015 added in this encounter Orders Medications Ordered That Gus ht Not Have Been Administered Count Last Ordered Date First Ordered Date metroNIDAZOLE (METROGEL) 0.7 5 % vaginal gel 1 12/27/2014 documented in this encounter Care Teams Water Control Supervisor Relationship Specialty Start Date End Date Nuvia Alejandra MD [address] [place] [id number] PCP - General Primary Care 12/19/14 06/26/15 documented as of this encounter
--- OUTSIDE RECORDS SUMMARY | 2024-08-21 14:10 | XMS_ITS | Encounter Summary ---
Author Organization [facility] Address [address] [place] [address] Care Team Providers Care Test Carrier Name Role Phone Santosh Saldivar MD Primary Care Provider [phone] Reason for Visit * Reason Onset Date Comments Results 12/14/2014 Encounter Details Date Type Department Care Team ([facility] st Contact Info) Description 12/14/2014 Telephone [facility] - [address] [address] Tamie Barnard, RN Results Social History Tobacco Use Types [...] Telephone Encounter - Tamie Barnard, RN - 12/14/2014 1416 EDT Called Orlando and relayed instructions not to take Mtx until we re-check labs at next infusion. documented in this encounter Plan of Treatment Not on file documented as of this encounter Visit Diagnoses Not on filedocumented in this encounter Care Teams Test Carrier Relationship Specialty Start Date End Date Santosh Saldivar MD [address] [place] [address] [place] [address] PCP - General 04/13/14 12/18/14 documented as of this encounter
--- OUTSIDE RECORDS SUMMARY | 2024-08-21 14:10 | XMS_ITS | Encounter Summary ---
Author Organization [facility] Address [address] [place] [address] Care Team Providers Care Per Diem Clerk Name Role Phone Nuvia Alejandra MD Primary Care Provider [phone] Reason for Referral * Medication Prior Authorization (Routine) - Closed Specialty Diagnoses / Procedures Referred By Bhavana loyola Referred To Contact Diagnoses Psoriatic arthropathy ([facility]) Uveitis Juve Pond Chi, MD Phone: tel: fax: Referral ID Status Reason Start Date Expiration Date Visits Requested Visits Authorized [id number] Closed Medication Prior Authorization 05/27/2015 05/27/2016 1 1 Question Answer Medication to be Prior Authorized: Infliximab 300 mg IV every 8 wks for psoriatic arthritis and uveiitis. Has been getting for years. Student now. No longer pediatrics under Dr. Patrick. Okay to get occasionally ain [facility] if she's home? Comments The purpose of this consult request is to inform the scheduling staff that a medication needs to be prior-authorized before it is prescribed and/or administered. Scheduled for 05/29/15 Encounter Details Date Type Department Care Team ([facility] st Contact Info) Description 05/23/2015 Orders Only [facility] Rheumatology & Immunology - [facility] [address] [place], [place] [id number] Rebeca Kern RN Psoriatic arthropathy ([facility]) (Primary Dx); Uveitis Social History Tobacco Use Types Packs/Day Years [...] as of this encounter Plan of Treatment Scheduled Referrals Name Type Priority Associated Diagnoses Order Schedule AMB MEDICATION PRIOR AUTHORIZATION Outpatient Referral Routine Psoriatic arthropathy ([facility]) Uveitis Ordered: 05/23/2015 documented as of this encounter Visit Diagnoses Diagnosis Psoriatic arthropathy ([facility])- Primary Psoriatic arthropathy Uveitis Unspecified iridocyclitis documented in this encounter Care Teams Per Diem Clerk Relationship Specialty Start Date End Date Nuvia Alejandra MD [address] [place] [id number] PCP - General Primary Care 12/19/14 06/26/15 documented as of this encounter
--- OUTSIDE RECORDS SUMMARY | 2024-08-21 14:10 | XMS_ITS | Encounter Summary ---
Author Organization [facility] Address [address] [place] [address] Care Team Providers Care Collections Curator Name Role Phone Nuvia Alejandra MD Primary Care Provider [phone] Reason for Visit * Reason Onset Date Comments Infusion 12/28/2014 schedule Alejandra farrar in [facility] Encounter Details Date Type Department Care Team (Late st Contact Info) Description 12/28/2014 Orders Only [facility] Rheumatology & Immunology - [facility] [address] [place], [place] [id number] Crystal Mai, RN Social History Tobacco Use Types Packs/Day [...] as of this encounter Progress Notes * Jacklyn Poe - 01/04/2015 1321 EDT Placed paper therapy for Remicaide to be done in [facility] in Dr Pond box when complete will fax to [facility] [phone] * Crystal Mai, RN - 12/28/2014 1329 EDT Images from the original note were not included. Message forwarded from Dr. Pond on 12/26: Juve Pond Chi, MD P Rheumatology Scheduling IV Pool Patient transferring care from Nuvia Patrick. She would like to receive next several doses of Remicade in [facility] at the hospital there. She has gotten them there before. If not possible, can we arrange for Remicade here in Rheum. Next Remicade 300 mg due 01/23; to be given q 8 weeks. If unable to schedule in [facility], have saved date for 02/01 here in clinic. documented in this encounter Plan of Treatment Not on file documented as of this encounter Visit Diagnoses Not on filedocumented in this encounter Care Teams Collections Curator Relationship Specialty Start Date End Date Nuvia Alejandra MD [address] [place] [address] PCP - General Primary Care 12/19/14 06/26/15 documented as of this encounter
--- OUTSIDE RECORDS SUMMARY | 2024-08-21 14:10 | XMS_ITS | Encounter Summary ---
Author Organization [facility] Address [address] [place] [address] Care Team Providers Care Jig Builder Helper Name Role Phone Nuvia Alejandra MD Primary Care Provider [phone] Reason for Referral * Consult (3 - 10 Business Days) - Specialty Report Received Specialty Diagnoses / Procedures Referred By Bhavana loyola Referred To Contact Dermatology Diagnoses Furuncle of skin or subcutaneous tissue Psoriasis Juve Pond Chi, MD Phone: tel: fax: [facility] Dermatology [address] [place] [address] Phone: tel: fax: Referral ID Status Reason Start Date Expiration Date Visits Requested Visits Authorized [id number] Specialty Report Received Specialty Services Required 05/29/2015 1 1 Question Answer Reason for Request: has painful boils on buttocks and history of psoriasis. evaluate for whether she needs antibiotics since she is on Remicade for uveitis. Reason for Visit * Reason Onset Date Comments Rash 05/29/2015 Encounter Details Date Type Department Care Team ([facility] st Contact Info) Description 05/29/2015 Orders Only [facility] Rheumatology & [place] [address] Juve Pond Chi, MD [address] [place] [address], [address] [place] [address] Furuncle of skin or subcutaneous tissue (Primary Dx); Psoriasis Social History Tobacco Use [...] as of this encounter Progress Notes * Arlene Pearce RN - 05/29/2015 5007 EDT Pt was scheduled for an infusion today, 05/29/15 at 1300. On reviewing pt's chart it appeared she had seen a provider just 2 days prior for ongoing psoriasis in her pelvic region and boils that drain bloody pus on her buttocks. Brought this information to Dr. Pond's attention. Dr. Pond asked to see the pt before her scheduled infusion. Dr. Pond decided pt will not receive her Remicade infusion today and wanted pt to be seen by dermatology as soon as possible. Pt reported to IV room to reschedule her infusion and she began crying. In speaking with pt we learned she is trying to decrease the frequency of her Remicade infusions from every 4 weeks to every 8 weeks, and since she is not getting the infusion today she is very concerned her uveitis will flare in the next week. Was able to reschedule the pt for 06/06/15 at 1030am. Pt aware and agreeable with appointment date and time. Pt was given the direct line to the infusion room as well as the Rheumatology clinic number if she had any questions or issues before seeing Dr. Pond on 06/05/15. Walked with pt to dermatology clinic and asked if there were any recent cancellations. Receptionistcontacted SCOTT Garcia and pt was asked to wait in the dermatology waiting room. By this time pt was no longer crying and reminded of her appointments with Rheumatology on 06/05/[address] Pond and possible Remicade infusion on 06/06/15. Pt verbalized understanding. Per nurse Garcia's note pt is scheduled to see Dr. Komal Gaming on 05/31/15 at 1545. * Juve Pond Chi, MD - 05/29/2015 1252 EDT Patient came to clinic for Remicade infusion today, but described having recurrent boils in her buttock region since January. She has had 2 Remicade infusions in [facility] the summer. The boils feel better after the drain. She has been applying tacrolimus to the boils. She denies fevers, chills. We discussed the fact that the Remicade may be contributing to skin infection and semiurgent dermatology referral was made. Remicade infusion today will have to be held andhas been rescheduled for June 06. Patient was upset about delaying Remicade infusion which may precipitate flare of uveitis. documented in this encounter Plan of Treatment Scheduled Referrals Name Type Priority Associated Diagnoses Orde r Schedule AMB CONS/FOLLOW UP DERMATOLOGY Outpatient Referral Routine Furuncle of skin or subcutaneous tissue Psoriasis Ordered: 05/29/2015 documented as of this encounter Visit Diagnoses Diagnosis Furuncle of skin or subcutaneous tissue- Primary Carbuncle and furuncle of unspecified site Psoriasis Other psoriasis documented in this encounter Care Teams Jig Builder Helper Relationship Specialty Start Date End Date Nuvia Alejandra MD [address] [place] [id number] PCP - General Primary Care 12/19/14 06/26/15 documented as of this encounter
--- OUTSIDE RECORDS SUMMARY | 2024-08-21 14:10 | XMS_ITS | Encounter Summary ---
Author Organization [facility] Address [address] [place] [address] Care Team Providers Care Roller Mechanic Name Role Phone Santosh Saldivar MD Primary Care Provider [phone] Reason for Referral * PT/OT/ST (Routine) - Closed Specialty Diagnoses / Procedures Referred By Bhavana loyola Referred To Contact Rehab Therapies Diagnoses Back pain Sofy Nicolas MD Phone: tel: fax: Referral ID Status Reason Start Date Expiration Date V isits Requested Visits Authorized [id number] Closed Specialty Services Required 10/11/2014 1 1 Question Answer Reason for Request: Back pain Reason for Visit * Reason Comments New Patient Visit here by herself for referral for primary care physician, as new to the area. Pt states was referred by wrapper hands sprayer. Encounter Details Date Type Department Care Team (Late st Contact Info) Description 10/11/2014 15:00 EST Office Visit [facility] [[email or web address]] [facility] - [place] [address] [place], [place] [id number] Sofy Nicolas MD 1 [facility] [address] [place] [phone] Uveitis (Primary Dx); Routine general medical examination at a health care facility; Sexually active; Psoriasis; High risk medication use; Pelvic pain in female; Back pain; Body mass index, pediatric, 5th percentile to less than 85th percentile for age; General counselling and advice on contraception; Contraception management; Initiation of Depo Provera Discharge Disposition: Auto Discharge Social History Tobacco [...] Sign Reading Time Taken Comments Blood Pressure 96/68 10/11/2014 1451 EST Pulse - - Temperature - - Respiratory Rate - - Oxygen Saturation - - Inhaled Oxygen Concentration - - Weight 56.7 kg (125 lb) 10/11/2014 1451 EST Height 168.9 cm (5' 6.5) 10/11/2014 1451 EST Body Mass Index 19.87 10/11/2014 1451 EST Body Mass Index Percentile 28.57% 10/11/2014 145 1 EST Growth Chart: CDC (Girls, 2- 20 Years) documented in this encounter Discharge Diagnoses Diagnosis V70.0 ROUTINE MEDICAL EXAM[ICD-9-CM] 364.3 IRIDOCYCLITIS NOS[ICD-9-CM] 696.1 OTHER PSORIASIS[ICD-9-CM] 625.9 FEMALE GENITAL SYMPTOMS NOS[ICD-9-CM] 724.5 BACKACHE NOS[ICD-9-CM] V49.89 OTHER SPECIFIED CONDITIONS INFLUENCING HEALTH STATUS[ICD-9-CM] V58.69 AFTERCARE PORT ENGINEER USE MEDICATN[ICD-9-CM] V85.52 BODY MASS INDEX, PED, 5TH PERCENTILE TO LESS THAN 85TH PERC FOR AGE[ICD-9-CM] V25.09 CONTRACEPTIVE MANGMT NEC[ICD-9-CM] V25.9 CONTRACEPTIVE MANGMT NOS[ICD-9-CM] V25.02 INITIATE CONTRACEPT NEC[ICD-9-CM] documented in this encounter Ordered Prescriptions Prescription Sig Dispense Quantity Refills Last Filled Start Date End Date medroxyPROGESTERon e (DEPO-PROVERA) 150 mg/mL injectionIndicatio ns:Sexually active 150mg IM every 3 months 1 mL 4 10/11/2014 12/27/2014 medroxyPROGESTERon e (DEPO-PROVERA) 150 mg/mL injectionIndicatio ns:Sexually active 150mg IM every 3 months 1 mL 4 10/11/2014 10/11/2014 documented in this encounter Discharge Disposition Disposition Code Departure Means Destination Auto Discharge documented in this encounter Progress Notes * Lluvia Ambrosio LPN - 10/11/2014 1702 EST Serum HCG indicated? negative. Depo-Provera 150 mg IM given by: Norah Ambrosio CCLPN. LOT: [id number] EXP: 06/29/17 MANU: [facility]: [id number] Lluvia Ambrosio LPN 10/11/2014 17:03 * Debora Powell MD - 10/11/2014 1518 EST WELL CHILD CHECK 13-21 YEARS Cornel Bearden is a 19 y.o. female who is brought in by herself for this well child visit. Vitals: BP 96/68 Ht 168.9 cm (66.5) Wt 56.7 kg (125 lb) BMI 19.88 kg/m2 29%ile (Z=-0.56) based on CDC 2-20 Years BMI-for-age data using vitals from 10/11/2014. 81%ile (Z=0.88) based on CDC 2-20 Years [id number] data using vitals from 10/11/2014. 49%ile (Z=-0.02) based on CDC 2-20 Years [id number] data using vitals from 10/11/2014. 5.6% systolic and 56.0% diastolic of BP percentile by age, sex, and height. Active Medications: Outpatient Prescriptions Marked as Taking for the 10/11/14 encounter (Office Visit) with Sofy Nicolas MD Medication Sig Dispense Refill ??? doxycycline (VIBRAMYCIN) 100 mg capsule Take 100 mg by mouth 2 times daily. ??? FLUoxetine (PROZAC) 20 mg tablet Take 20 mg by mouth daily. ??? inFLIXimab (REMICADE) 100 mg injection Inject 300 mg into the vein every 4 weeks. ??? methotrexate 2.5 mg tablet Take 6 Tabs by mouth once a week. 72 Tab 3 ??? [DISCONTINUED] norethindrone-ethinyl estradiol (MICROGESTIN 09/18, ,) 1-20 mg-mcg per tablet Take 1 Tab by mouth daily. ??? TACROLIMUS (PROTOPIC TOP) Apply topically as needed. No Facility-Administered Medications for the 10/11/14 encounter (Office Visit) with Sofy Nicolas MD. Active Problems: Patient Active Problem List Diagnosis Date Noted ??? Uveitis 04/13/2014 Priority: Medium ??? Psoriasis 04/13/2014 Priority: Medium ??? High risk medication use 07/04/2014 Immunization History: There is no immunization history on file for this patient. Allergies: Allergies Allergen Reactions ??? Ciprofloxacin Hives ??? Clindamycin ??? Penicillins Interval History: Cornel is here to establish primary care with Dr. Nicolas. [place], Dr. Santosh Saldivar, but sees Dr. Nuvia Patrick of pediatric rheumatology [place] idiopathic uveitis diagnosed at age 10. As Cornel is now attending [employer] both Dr. Castro and felt she would benefit from having a PCP in the [place] area and referred her to me garth initial consultation visit. Uveitis - started at age 10. Not currently active. Has been on remicade every 6 weeks and has been spacing out. Her last treatment was last week (10/05) and she will be spaced out to every 8 weeks now. She flared last time her treatments were spaced 2 years ago. Takes MTX daily. Next due to see rheumatology on November 28. Has history of abnormal immuneglobulins. Facial rash - has had several different rashes in the past. The most recent has now cleared, but started last week. The rash was red and raised and was over both cheeks and extending up to her eyes. There were no blisters or crusting. She put mupiricin in the rash and it cleared up within a day or 2. She has never had a rash like that before. She had another rash about a month ago that was thought to be possible HSV but a test done with [employer] was negative. Contraception - is on microgestin due to possible estrogen contraindication given uveitis of unknown etiology, although main contraindication of abnormal anti-phospholipid antibody is not documented in previous labs . Pills have worked well for her and she is quite paranoid about getting on MTX. Interested in changing to Depo Provera today. Occasionally misses a pill and then takes 2 thenext day. Has never had a positive test and never diagnosed with an STI. Tested for STIs 2-3 weeks ago. Last intercourse was 1-2 month ago. Uses condoms 100%. Total of 2 male partners in lifetime. Pelvic pain - has had pelvic pain since July. Became sexually active in March. She notes pain in her lower abdomen with sex and occasionally at other times, states sex is uncomfortable in certain positions. She does have a history of frequent post coital UTIs. She has a history of constipationover the past 2 years. She takes sennoside which helps, but makes her uncomfortable. She tried miralax, but a very large dose did not work. Denies any abnormal vaginal bleeding or discharge. Seen in student health but no diagnosis made. Back pain - Thoracolumbar of unknow etiology, worked up extensively by PCP and specialists near [facility]. Dr. Patrick has requested old records. PT in the past for other things (achilles tendonitis andhip pain), which sort of helped. Never had targeted PT for back. Back pain started at age 15. It ismid back pain that is worsened with lying on her stomach and things that arch her back. It occasionally wakes her from sleep and prevents her from sleeping. Advil provides adequate relief. Psoriasis - started around age [age]y around her ear and on her vulva and groin. Well controlled with her topical treatment of Protopic. Depression - Currently on Prozac 20mg but has been feeling more down lately due to newer pelvic pain. Prefers to see a therapist/psychiatrist before increasing dose. Other interval care received outside this practice: Yes, sees Dr. Patrick for uveitis Social History & Review of Systems: Home: [place]. Father works export traffic department manager in [place] Job: no Career Plans: unknown, possibly nursing Education: School: Freshman at [employer] [[email or web address]] Problems at school: Yes, Grades dropping due to constantly beingtired, back pain and being sick a lot. Activities: runs and exercises daily (about 1-2 hours per day) Sleep: difficulty sleeping due to back pain. Naps frequently throughout the day Diet/Nutrition: did not discuss at this visit Dental: did not discuss at this visit Sexuality: Has had 2 male life time partners, started sexual activity this past March. Has considered the possibility of having same sex partners, but has not acted on this. She identifies as straight. See [facility] for more information. Menstrual History: has been amenorrheic since she was 16, initially due to exercising heavily. Has been on microgestin OCP which does not have placebo pills that allow a withdrawal bleed. She was started on OCPs, she thinks, because it was bad to not have periods, but not because she was sexually active. Does not have spotting. Did not have significant dysmenorrhea or heavy periods when she didhave periods. Behavioral Health Screen: Tobacco use: History Smoking status ??? Never Smoker Smokeless tobacco ??? Not on file CRAFFT Alcohol: no Marijuana: no Other: no Car: Total Score: Interpretation: PHQ-9 Total Score: 4/9 Interpretation: If Evaluating for Depression Severity: Intervention: brief in-office intervention Strengths: did not Discuss at this visit, will discuss at next Generosity: [place]: Mastery: Belonging: ROS: See Interval history Family History: Plan: Family History Problem Relation Age of Onset ??? Ankylosing spondylitis Neg Hx ??? Arthritis-Rheumatoid Neg Hx ??? Inflammatory Bowel Disease Neg Hx ??? Psoriasis Neg Hx ??? Psoriatic arthritis Neg Hx ??? Rheumatologic Disease Neg Hx ??? Scleroderma Neg Hx ??? SLE Neg Hx ??? Ulcerative Colitis Neg Hx ??? Crohn's Disease Neg Hx Past Medical History: Plan: No interval change Past Medical History Diagnosis Date ??? Psoriasis started on remicade ??? Varicella ??? Joint pain ??? Vision abnormalities ??? Hearing difficulty Physical Exam: Plan: Growth parameters are noted and are appropriate for age. General: Alert, No apparent distress and anxious appearing Growth: Normal interval growth Head/Neck: Supple, No adenopathy and Normal thyroid Eyes: ALTHEA and Full EOM, no conjunctivitis, white sclera Ears: Canals clear, TMs clear and Light reflex present Nose:: Nares patent and No discharge Mouth: Normal dentition and MMM Nodes: No Axillary/Inguinal Adenopathy or Tenderness Chest: BS Clear/ R=L and No retractions Breast: Nick: 5 CVS: RRR, No Murmur and Normal Pulses Abdomen: Soft, Non-tender, No HSM and No mass, mild tenderness to palpation in the lower abdomen /Pelvic: Nick: 5, shaved pubic hair and psoriasis plaques on labia majora without evidence of secondary infection, no external vaginal discharge, normal bimanual exam without cervical/uterine/ovarian tenderness, scant thin white discharge on vaginal zafar, clear mucous in cervical os, no bleeding or other discharge, no odor MSK: Full ROM and No scoliosis, Pain to palpation over spinus processes Skin: No obvious psoriatic plaques, No atypical nevi and Mild or no acne Neuro: Normal tone, reflexes and strength Assessment & Plan: Plan: Cornel was seen today for new patient visit. Diagnoses and associated orders for this visit: Routine general medical examination at a health care facility Contraception Management: Would like to switch from progestin only pill today to Depo Provera as she occasionally forgets pills. Unclear autoimmune issues make an estrogen containing method an inappropriate choice for now. test negative today. May consider IUD or Nexplanon in the future. - medroxyPROGESTERone (DEPO-PROVERA) 150 mg/mL injection; 150mg IM every 3 months - Next Depo due Dec 27-January 10 Pelvic Pain - Normal pelvic exam in clinic today with only scant thin white vaginal discharge visible on zafar. No CMT/uterine/ovarian tenderness. Has a history of chronic constipation (with alternating diarrhea, possibly IBS). Could possibly be GI related. - Vaginitis swab sent (ADDENDUM OCT 12: POSITIVE FOR BV, PRESCRIPTION FOR METRONIDAZOLE GEL DONE DUE TO INTERACTION OF ORAL METRONIDAZOLE WITH OTHER MEDS, CORNEL INFORMED) - GC/CT sent - Miralax prescribed; to titrate until stools are softer and more regular - will follow up at next visit Uveitis - Currently well controlled and managed by Dr. Patrick. Spacing out remicade treatments currently. Daily MTX Psoriasis - occasional flares. - continue Protopic topical treatment prn Back Pain - unclear etiology, chronic in nature. - PT referral - Has appt scheduled for chronic pain team (?) in october, Dr. Nuvia Alejandra (?) - Dr. Patrick has requested old records of previous workup by PCP and specialists. Will discuss with her and PCP before proceeding with additional evaluation. Depression: On Prozac 20mg for some time now but has decreased mood in the last few months. Declined increase in Prozac at this time but interested in seeing therapist and psychiatrist at [facility] [[email or web address]] counseling center. Called to see how soon Cornel could be seen by Dr. Barbara Cohen, Psychiatry at that office and they have an opening right after break on November 02; Cornel to call to make appointment. ROV in 2-3 weeks for follow-up of all of the above and other general issues that we did not have time to discuss due to complexity of issues today - Normal growth and pubertal development Immunizations reviewed and administered as needed Fit for competitive sports No limitations Case Management (Medicaid only - yearly): N/A. [employer] was not used. The following anticipatory guidance topics were reviewed with the family: Sexuality: STDs and Safe sex. Debora Powell MD Pediatrics PGY 3 [phone] ATTESTATION: I saw and examinded the patient. I agree with the resident's findings and plans as documented above and edited as necessary. Sofy Nicolas MD 10/12/2014 11:58, Adolescent Medicine documented in this encounter Plan of Treatment Scheduled Referrals Name Type Priority Associated Diagnoses Orde r Schedule AMB CONS/FOLLOW UP PHYSICAL THERAPY Outpatient Referral Routine Back pain Ordered: 10/11/2014 documented as of this encounter Procedures Procedure Name Priority Date/Time Associated Diagnosis Comments ZZVAGINITIS EXAM Routine 10/11/2014 18:2 0 EST Pelvic pain in female CHLAMYDIA/N. GONORRHOEAE AMPLIFIED NUCLEIC ACID Routine 10/11/2014 18:19 EST Pelvic pain in female POCT TEST, VISUAL READ Routine 10/11/2014 17:01 EST Sexually active CHLAMYDIA/N. GONORRHOEAE AMPLIFIED RNA, URINE Routine 10/11/2014 16:08 EST Sexually active documented in this encounter Results * VAGINITIS EXAM (10/11/2014 18:20 EST) Gram Smear Result No yeast seen. 10/11/2014 23:15 EST [facility] Gram Smear Result Smear consistent with BACTERIAL VAGINOSIS. 10/11/2014 23:15 EST [facility] Result No Trichomonas antigen detected. 10/11/2014 23:15 EST [facility] Specimen of unknown material (specimen) VAGINAL STRUCTURE / Unknown 10/11/2014 18:20 EST 10/11/2014 21:06 EST Sofy Nicolas MD MICROBIOLOGY - GENERAL OR DERABLES Final Result [facility] [address] [place] [address] * CHLAMYDIA/GC AMPLIFIED (10/11/2014 18:19 EST) Specimen Description Vagina 10/15/2014 12:39 EST [facility] Chlamydia Result No Chlamydia trachomatis DNA detected by instructional support specialist mediated amplification. 10/15/2014 14:37 EST [facility] GC Result No Neisseria gonorrhoeae DNA detected by instructional support specialist mediated amplification. 10/15/2014 14:37 EST [facility] Specimen of unknown material (specimen) TOPOGRAPHY UNKNOWN / Unknown 10/11/2014 18:19 EST 10/11/2014 21:06 EST Sofy Nicolas MD MICROBIOLOGY - GENERAL OR DERABLES Final Result Performing Organization Address City/[facility]/ZIP Co de Phone Number [facility] [address] [place] [address] * POCT URINE TEST (10/11/2014 17:01 EST) Test, Urine, POC Negative Reference Range, Negative POINT OF CARE Control Line Present Yes POINT OF CARE Background Clear? Yes POINT OF CARE Urine specimen (specimen) 10/11/2014 17:01 EST Sofy Nicolas MD POINT OF CARE TEST ORDERA BLES Final Result Performing Organization Address City/[facility]/ZIP Co de Phone Number POINT OF CARE * CHLAMYDIA/GC AMPLIFIED, URINE (10/11/2014 16:08 EST) Specimen Description Urine 10/11/2014 21:07 EST [facility] Chlamydia Result No Chlamydia trachomatis DNA detected by instructional support specialist mediated amplification. 10/12/2014 14:02 EST [facility] Comment: A first catch urine specimen is acceptable for detection of Gonorrhea and Chlamydia, but might detect up to 10% fewer infections when compared with vaginal and endocervical swab samples. GC Result No Neisseria gonorrhoeae DNA detected by instructional support specialist mediated amplification. 10/12/2014 14:02 EST [facility] Comment: A first catch urine specimen is acceptable for detection of Gonorrhea and Chlamydia, but might detect up to 10% fewer infections when compared with vaginal and endocervical swab samples. Specimen of unknown material (specimen) URINE / Unknown 10/11/2014 16:08 EST 10/11/2014 21:07 EST Sofy Nicolas MD MICROBIOLOGY - GENERAL OR DERABLES Final Result Performing Organization Address City/State/[facility] Co de Phone Number [facility] [address] [place] [address] documented in this encounter Visit Diagnoses Diagnosis Uveitis- Primary Unspecified iridocyclitis Routine general medical examination at a health care facility Sexually active Psoriasis Other psoriasis High risk medication use Encounter for long-term (current) use of other medications Pelvic pain in female Unspecified symptom associated with female genital organs Back pain Backache, unspecified Body mass index, pediatric, 5th percentile to less than 85th percentile for age Body Mass Index, pediatric, 5th percentile to less than 85th percentile for age General counselling and advice on contraception Other general counseling and advice for contraceptive management Contraception management Unspecified contraceptive management Initiation of Depo Provera General counseling for initiation of other contraceptive measures documented in this encounter Discontinued Medications Medication Sig Discontinue Reason Start Date End Da te medroxyPROGESTERone (DEPO-PROVERA) 150 mg/mL injectionIndications:Sex ually active 150mg IM every 3 months Reorder 10/11/2014 10/11/2014 norethindrone-ethinyl estradiol (MICROGESTIN 09/18, 21,) 1-20 mg-mcg per tablet Take 1 Tab by mouth daily. Alternate therapy 10/11/2014 documented as of this encounter Care Teams Roller Mechanic Relationship Specialty Start Date End Date Santosh Saldivar MD [address] [place] [address] PCP - General 04/13/14 12/18/14 documented as of this encounter
--- OUTSIDE RECORDS SUMMARY | 2024-08-21 14:10 | XMS_ITS | Encounter Summary ---
Author Organization [facility] Address [address] [place] [address] Care Team Providers Care Physician Relations Representative Name Role Phone Santosh Saldivar MD Primary Care Provider [phone] Reason for Visit * Reason Onset Date Comments Follow-up 11/01/2014 Encounter Details Date Type Department Care Team ([facility] st Contact Info) Description 11/01/2014 [facility] - [place] [address] [place], [place] [id number] Sofy Nicolas MD 1 [facility] [address] [place] [phone] Follow-up Social History Tobacco Use Types Packs/Day [...] encounter Miscellaneous Notes * Telephone Encounter - Sofy Nicolas MD - 11/01/2014 5633 EST NO SHOW PHONE CALL: [place] did not show up for her follow up appointment today. Reached her by phoneand she stated she is on vacation and rescheduled her visit for next week. Feeling better. Unable to tell me the exact date and time as she left her date book at school. Explained that I did not see her on our schedule and she should call to check on her appointment as soon as she gets back from vacation. documented in this encounter Plan of Treatment Not on file documented as of this encounter Visit Diagnoses Not on filedocumented in this encounter Care Teams Physician Relations Representative Relationship Specialty Start Date End Date Santosh Saldivar MD [address] [place] [address] [place] [address] PCP - General 04/13/14 12/18/14 documented as of this encounter
--- OUTSIDE RECORDS SUMMARY | 2024-08-21 14:10 | XMS_ITS | Encounter Summary ---
Author Organization [facility] Address [address] [place] [address] Care Team Providers Care Fire Prevention Research Engineer Name Role Phone Nuvia Alejandra MD Primary Care Provider [phone] Reason for Visit * Reason Comments Rash started antibiotics 06/01 Encounter Details Date Type Department Care Team ([facility] st Contact Info) Description 06/05/2015 16:00 EDT Office Visit [facility] Rheumatology & Immunology - [address] [id number] Juve Pond Chi, MD [address] [place] [address], [address] [place] [address] Uveitis (Primary Dx); Psoriasis; Furuncle of buttock; Staph skin infection Social History Tobacco Use Types Packs/Day Years [...] Sign Reading Time Taken Comments Blood Pressure 102/60 06/05/2015 1556 EDT Pulse 64 06/05/2015 1556 EDT Temperature - - Respiratory Rate - - Oxygen Saturation - - Inhaled Oxygen Concentration - - Weight 58.5 kg (129 lb) 06/05/2015 1556 EDT Height 168.6 cm (5' 6.38) 06/05/2015 1556 EDT Body Mass Index 20.58 06/05/2015 1556 EDT documented in this encounter Functional Status [...] Patient Instructions* Juve Pond Chi, MD - 06/05/2015 16:20 EDT Continue current meds. documented in this encounter Progress Notes * Rekha Mohan RN - 06/05/2015 1600 EDT REVIEW OF SYSTEMS: Yes No Yes No Fever X Joint pain X Weight gain or loss pounds (lbs) Duration of AM joint stiffness hours / min Eye pain or dryness X Numbness/tingling X Mouth or nose sores X Heart burn / Nausea X Chest pain X Diarrhea X Shortness of Breath X Blood in stool X Cough x Burning on urination X Skin rash x [...] entire body? 0 f. Bend down to pickle water pump operator clothing from the floor? 0 g. Turn regular faucets on and off? 0 h. Get in and out of a car, bus, train or airplane? 0 i. Walk two miles or three kilometers, if you wish? 0 j. Participate in recreational activities/sports, if you wish? 0 TOTAL = 0 FUNCTION (FN) (Use conversion scale) = 0 (Use conversion scale above) Get a good night???s sleep? 1.1 0 = Without ANY difficulty (0.0) 1 = With SOME difficulty (1.1) 2 = With MUCH difficulty (2.2) 3 = UNABLE to do (3.3) Deal with feelings of anxiety or being nervous? 1.1 Deal with feelings of depression or feeling blue? 0 PAIN (PN) = 2.5 0-10 PATIENT GLOBAL (PTGE) = 2.5 0-10 RAPID3 SCORE (FN + PN + PTGE) = 5.0 0-30 HS: > 12 MS: 6.1 - 12 LS: 3.1 - 6 NR: <= 3 * Juve Pond Chi, MD - 06/05/2015 9763 EDT Images from the original note were not included. Subjective: Patient ID: Orlando Bearden is an 20 y.o. female. Chief Complaint Patient presents with ??? Rash started antibiotics 06/01 HPI Comments: F/u uveitis, ?psoriasis /2 Remicade, elevated LFTs due to [place]. Remicade was due last week and held due to buttock lesions suspicious for boils and furuncles that may have been infected. Pt saw Derm 05/31 who dx furuncles, performed I & D with culture showing Staph Aureus; she wasstarted on Doxycycline. Boils on the buttocks have become smaller and are less painful. Pt had noted pimples forming around the umbilicus. Denies eye pain or redness. Denies any other joint pains or swelling. AM stiffness: Denies. Physical activity: Attends classes. Runs, kick boxes. Patient Active Problem List Diagnosis ??? Uveitis ??? Psoriasis ??? High risk medication use ??? Sexually active ??? Depressed mood ??? Chronic back pain ??? Furuncle of buttock ??? Staph skin infection Past Surgical History Procedure Laterality Date ??? Cataract removal with implant Left 2012 ??? Glaucoma surgery Left ??? Tonsillectomy ??? Refractive surgery 2007, 2012 Outpatient Prescriptions Marked as Taking for the 06/05/15 encounter (Office Visit) with Juve Pond Chi, MD Medication Sig Dispense Refill ??? doxycycline (VIBRAMYCIN) 100 mg capsule Take 1 Cap by mouth 2 times daily for 7 days 14 Cap 0 ??? inFLIXimab (REMICADE) 100 mg injection Inject 300 mg into the vein every 4 weeks. ??? medroxyPROGESTERone (DEPO-PROVERA) 150 mg/mL injection Inject 150 mg into the muscle every 12 weeks ??? TACROLIMUS (PROTOPIC TOP) Apply topically as needed. ROS - See HPI I reviewed the 10 point ROS performed by the nurse which is as documented in Prism. Objective: BP 102/60 mmHg Pulse 64 Ht 168.6 cm (66.38) Wt 58.514 kg (129 lb) BMI 20.58 kg/m2 Physical Exam Constitutional: She is oriented to person, place, and time. She appears well- developed and well-nourished. No distress. Attractive, slender, young female HENT: Head: Normocephalic and [...] cranial nerve deficit. Skin: No rash noted. Hypopigmented fading furuncles and boils in the buttock region, right groin. Incision sites were clean and nondraining. 4-5 vesicular lesions with erythematous base around the umbilicus. Dry scaly plaques at bilateral ears. Psychiatric: She has a normal mood and affect. Her behavior is normal. Vitals reviewed. 05/31/2015 skin swab culture- Rare staph aureus RAPID3 (Routine assessment of pt index data): Rapid3 score: 5 Disease activity: low Goal: prevent another flare of uveitis This was discussed with patient. Assessment: Plan: 1. Uveitis HEMAGRAM AND DIFFERENTIAL SED. RATE:WESTERGREN COMPREHENSIVE METABOLIC PANEL (CMP) C REACTIVE PROTEIN 2. Psoriasis 3. Furuncle of buttock 4. Staph skin infection Uveitis- Had been well controlled on Remicade. She is one week late receiving the next dose because of a cutaneous infection. No evidence for relapse of uveitis yet. Methotrexate monotherapy was not effective and was stopped in the spring due to elevated LFTs for mononucleosis. Recheck CBC and CMP. 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 Mild skin involvement. Furuncle in the buttocks- Secondary to staphylococcal skin infection, immunosuppression. Patient has been on doxycycline over the past week and the lesions do not appear as inflamed. She does have new vesicular lesions around the umbilicus suspicious for staphylococcal infection. She has follow-up with dermatology tomorrow- If they feel her skin lesions are responding well enough to doxycycline and if she can stay on doxycycline to control the infection while we administer Remicade, then we will proceed with her infusion tomorrow. We will forward this note to Dr. Gaming for her opinion. Barriers to learning identified: No Patient verbalizes understanding and agrees with plan Yes F/u 4 mos. Juve Pond MD documented in this encounter Plan of Treatment Not on file documented as of this encounter Results * C REACTIVE PROTEIN (06/05/2015 16:32 EDT) C Reactive Protein <7.0 <10.0 mg/L 06/05/2015 18:01 [facility] Comment: Note units change to mg/L. Values will be 10 fold higher than with previous units of mg/dl. Blood specimen (specimen) BLOOD SPECIMEN / Unknown 06/05/2015 16:32 EDT 06/05/2015 16:58 EDT Juve Pond MD CHEMISTRY & BLOOD GAS ORDERABLES Final Result [facility] [address] [place] [address] * (ABNORMAL) COMPREHENSIVE METABOLIC PANEL (CMP) (06/05/2015 16:32 EDT) Potassium 4.4 3.5 - 5.0 mEq/L 06/05/2015 18:01 [facility] Sodium 140 136 - 145 mEq/L 06/05/2015 18:01 [facility] Chloride 102 96 - 110 mEq/L 06/05/2015 18:01 [facility] CO2 26 24 - 32 mEq/L 06/05/2015 18:01 [facility] Total Alkaline Phosphatase 82 38 - 126 U/L 06/05/2015 18:01 [facility] Bilirubin, Total <0.5 <1.4 mg/dl 06/05/20 15 18:01 [facility] AST 41 15 - 46 U/L 06/05/2015 18:01 [facility] ALT 48 <53 U/L 06/05/2015 18:01 [facility] Albumin 4.9 3.4 - 4.9 g/dl 06/05/2015 18:01 [facility] Total Protein 9.0(H) 6.3 - 8.2 g/dl 06/05/2015 18:01 [facility] Creatinine 0.64 0.52 - 1.04 mg/dl 06/05/2015 18:01 [facility] GFR, Calculated 130 >60 ml/min/1.7 3m2 06/05/2015 18:01 [facility] Comment: eGFR calculated using CKD-EPI equation for non Americans. Multiply eGFR by 1.16 for Americans. BUN 13 10 - 26 mg/dl 06/05/2015 18:01 EDT [facility] Calcium 9.7 8.5 - 10.5 mg/dl 06/05/2015 18:01 EDT [facility] Calculated Calcium 9.2 8.5 - 10.5 mg/dl 06/05/2015 18:01 EDT [facility] Glucose, Serum 97 70 - 100 mg/dl 06/05/2015 18:01 T [facility] Fasting? Unknown 06/05/2015 18:32 EDT [facility] Blood specimen (specimen) BLOOD SPECIMEN / Unknown 06/05/2015 16:32 EDT 06/05/2015 16:58 EDT Juve Pond MD CHEMISTRY & BLOOD GAS ORDERABLES Final Result Performing Organization Address [facility] Co de Phone Number [facility] [address] [place] [address] * (ABNORMAL) SED. RATE:WESTERGREN (06/05/2015 16:32 EDT) Sed. Rate Westergren 24(H) 0 - 20 mm/hr 06/05/2015 17:12 EDT [facility] Blood specimen (specimen) BLOOD SPECIMEN / Unknown 06/05/2015 16:32 EDT 06/05/2015 16:58 EDT us Juve Pond MD HEMATOLOGY & PF4 ORDERABLES Nessa l Result [facility] [address] [place] [address] * (ABNORMAL) HEMAGRAM AND DIFFERENTIAL (06/05/2015 16:32 EDT) WBC 8.21 4.0 - 12.4 K/cmm 06/05/2015 17:14 EDT [facility] RBC 4.28 3.86 - 5.04 M/cmm 06/05/2015 17:14 [facility] Hemoglobin 13.0 11.6 - 15.2 gm/dl 06/05/2015 17:14 [facility] HCT 38.6 34.9 - 44.4 % 06/05/2015 17:14 [facility] MCV 90 81 - 98 fl 06/05/2015 17:14 [facility] MCH 30.4 26.7 - 33.3 pg 06/05/2015 17:14 [facility] MCHC 33.7 32.1 - 35.9 gm/dl 06/05/2015 17:14 [facility] RDW-CV 12.8 11.7 - 14.6 % 06/05/2015 17:14 [facility] RDW-SD 40.3 37.6 - 50.3 fl 06/05/2015 17:14 [facility] PLT 342(H) 141 - 320 K/cmm 06/05/2015 17:14 [facility] MPV 7.8 7.5 - 11.2 fl 06/05/2015 17:14 [facility] % Neutrophils 53.3 45.5 - 79.7 % 06/05/2015 17:14 [facility] % Lymphocytes 38.3 15.0 - 46.8 % 06/05/2015 17:14 [facility] % Monocytes 6.1 1.8 - 12.0 % 06/05/2015 17:14 [facility] % Eosinophils 1.8 0.6 - 6.9 % 06/05/2015 17:14 [facility] % Basophils 0.5 0.2 - 1.4 % 06/05/2015 17:14 [facility] ABS Neutrophils 4.37 2.20 - 8.85 K/cmm 06/05/2015 17:14 [facility] ABS Lymphs 3.14 1.09 - 3.30 K/cmm 06/05/2015 17:14 [facility] ABS Monocytes 0.50 0.1 - 0.8 K/cmm 06/05/2015 17:14 [facility] ABS Eosinophils 0.15 0.03 - 0.61 K/cmm 06/05/2015 17:14 EDT [facility] ABS Basophils 0.04 0.01 - 0.11 K/cmm 06/05/2015 17:14 EDT [facility] Type of Diff: Automated 06/05/2015 17:14 EDT [facility] Blood specimen (specimen) BLOOD SPECIMEN / Unknown 06/05/2015 16:32 EDT 06/05/2015 16:58 EDT us Juve Pond MD PACKAGES & DNA PROBE ORDERABLES Final Result [facility] [address] [place] [address] documented in this encounter Visit Diagnoses Diagnosis Uveitis- Primary Unspecified iridocyclitis Psoriasis Other psoriasis Furuncle of buttock Carbuncle and furuncle of buttock Staph skin infection Unspecified local infection of skin and subcutaneous tissue documented in this encounter Care Teams Fire Prevention Research Engineer Relationship Specialty Start Date End Date Nuvia Alejandra MD [address] [place] [id number] PCP - General Primary Care 12/19/14 06/26/15 documented as of this encounter
--- OUTSIDE RECORDS SUMMARY | 2024-08-21 14:10 | XMS_ITS | Encounter Summary ---
Author Organization [facility] Address [address] [place] [address] Care Team Providers Care Cotton Grower Name Role Phone Santosh Saldivar MD Primary Care Provider [phone] Encounter Details Date Type Department Care Team (Latest Contact Info) Description 12/13/2014 9:53 EDT - 12/13/2014 23:59 EDT Hospital Encounter [address] [address] Unknown, Provider, Nuvia Macias MD [address] [place] [address],[address] [place], [place] [id number] Discharge Disposition: Auto Discharge Social History Tobacco [...] as of this encounter Discharge Diagnoses Diagnosis 790.6 ABN BLOOD CHEMISTRY NEC[ICD-9-CM] 364.3 IRIDOCYCLITIS NOS[ICD-9-CM] V58.69 AFTERCARE DIRECTOR OF RETAIL OPERATIONS USE MEDICATN[ICD-9-CM] documented in this encounter Medications at Time [...] Disposition Code Departure Means Destination Auto Discharge Home documented in this encounter Plan of Treatment Not on file documented as of this encounter Procedures Procedure Name Priority Date/Time Associated Diagnosis Comments HE-ZURITA PANEL Routine 12/13/2014 10 :12 EDT documented in this encounter Results * HE-ZURITA PANEL (12/13/2014 10:12 EDT) EBNA IgG Interpretati on: Negative 12/14/2014 13:36 EDT [facility] Comment: Absence of detectable EBNA IgG antibodies. VCA IgM Interpretati on: Positive 12/14/2014 13:37 EDT [facility] Comment: Presence of detectable VCA IgM antibodies. VCA IgG Interpretati on: Positive 12/14/2014 13:38 EDT [facility] Comment: Presence of detectable VCA IgG antibodies. EBV Interpretation Results would indicate recent infection with 12/14/2014 13:38 EDT [facility] Comment:He-Zurita Virus. BLOOD SPECIMEN / Unknown 12/13/2014 10:12 EDT 12/13/2014 10:27 EDT us Nuvia Patrick MD IMMUNOLOGY AND SEROLOGY ORD ERABLES Final Result [facility] [address] [place] [address] documented in this encounter Visit Diagnoses Not on filedocumented in this encounter Care Teams Cotton Grower Relationship Specialty Start Date End Date Santosh Saldivar MD [address] [place] [address] [place] [address] PCP - General 04/13/14 12/18/14 documented as of this encounter
--- OUTSIDE RECORDS SUMMARY | 2024-08-21 14:10 | XMS_ITS | Encounter Summary ---
Author Organization [facility] Address [address] [place] [address] Care Team Providers Care Mechanical Apprentice Name Role Phone Nuvia Alejandra MD Primary Care Provider [phone] Reason for Visit * Reason Comments Infusion Encounter Details Date Type Department Care Team (Latest Contact Info) Description 05/29/2015 13:00 EDT Office Visit [facility] Rheumatology & Immunology - [facility] [address] [place] [address] Unknown, Provider, Assoc, Rheum Health Uveitis (Primary Dx); Psoriasis [...] 696.1 OTHER PSORIASIS[ICD-9-CM] documented in this encounter Progress Notes * Arlene Pearce RN - 05/29/[address] Pond note from 05/29/15. Pt did not receive Remicade infusion today. documented in this encounter Plan of Treatment Not on file documented as of this encounter Visit Diagnoses Diagnosis Uveitis- Primary Unspecified iridocyclitis Psoriasis Other psoriasis documented in this encounter Care Teams Mechanical Apprentice Relationship Specialty Start Date End Date Nuvia Alejandra MD [address] [place] [id number] PCP - General Primary Care 12/19/14 06/26/15 documented as of this encounter
--- OUTSIDE RECORDS SUMMARY | 2024-08-21 14:10 | XMS_ITS | Encounter Summary ---
Author Organization [facility] Address [address] [place] [address] Care Team Providers Care Gardening Supervisor Name Role Phone Santosh Saldivar MD Primary Care Provider [phone] Nuvia Alejandra MD Primary Care Provider [phone] Encounter Details Date Type Department Care Team (Late st Contact Info) Description 12/13/2014 Phlebotomy Only [facility] [address] [place] [address] Liquid Fertilizer Servicer, Outpatient Uveitis; High risk medication use Social History Tobacco Use Types Packs/Day Years [...] Date/Time Associated Diagnosis Comments SED RATE Routine 12/13/2014 10:12 EDT Uveitis High risk medication use COMPLETE BLOOD COUNT AND DIFFERENTIAL Routine 12/13/2014 10:12 EDT Uveitis High risk medication use C REACTIVE PROTEIN Routine 12/13/2014 10 :12 EDT Uveitis High risk medication use COMPREHENSIVE METABOLIC PANEL (CMP) Routine 12/13/2014 10:12 EDT Uveitis High risk medication use documented in this encounter Results * C-REACTIVE PROTEIN (12/13/2014 10:12 EDT) [facility] C-Reactive Protein 0.8 <1.0 mg/dl 12/13/2014 10:58 EDT [facility] Blood specimen (specimen) BLOOD SPECIMEN / Unknown 12/13/2014 10:12 EDT 12/13/2014 10:27 EDT us Nuvia Patrick MD CHEMISTRY & BLOOD GAS ORDER GEORGINA Final Result [facility] [address] [place] [address] * SED. RATE:WESTERGREN (12/13/2014 10:12 EDT) [facility] Sed. Rate Westergren 9 0 - 20 mm/hr 12/13/2014 10:39 EDT [facility] Blood specimen (specimen) BLOOD SPECIMEN / Unknown 12/13/2014 10:12 EDT 12/13/2014 10:27 EDT us Nuvia Patrick MD HEMATOLOGY & PF4 ORDERABLES Final Result [facility] [address] [place] [address] * (ABNORMAL) COMPREHENSIVE METABOLIC PANEL (CMP) (12/13/2014 10:12 EDT) [facility] Potassium 4.2 3.5 - 5.0 mEq/L 12/13/2014 10:58 EDT [facility] Sodium 140 136 - 145 mEq/L 12/13/2014 10:58 EDT [facility] Chloride 98 96 - 110 mEq/L 12/13/2014 10:58 EDT [facility] CO2 30 24 - 32 mEq/L 12/13/2014 10:58 EDT [facility] Total Alkaline Phosphatase 99 38 - 126 U/L 12/13/2014 10:58 EDT [facility] Bilirubin, Total 0.7 <1.4 mg/dl 12/14/19 15 10:58 [facility] AST 71(H) 15 - 46 U/L 12/13/2014 10:58 [facility] ALT 157(H) <53 U/L 12/13/2014 10:58 [facility] Albumin 4.8 3.4 - 4.9 g/dl 12/13/2014 10:58 [facility] Total Protein 8.3 6.5 - 8.3 g/dl 12/13/2014 10:58 [facility] Creatinine 0.58 0.52 - 1.04 mg/dl 12/13/2014 10:58 [facility] GFR, Calculated >60 >60 ml/min/1.7 3m2 12/13/2014 10:58 [facility] BUN 9(L) 10 - 26 mg/dl 12/13/2014 10:58 [facility] Calcium 10.0 8.5 - 10.5 mg/dl 12/13/2014 10:58 [facility] Calculated Calcium 9.6 8.5 - 10.5 mg/dl 12/13/2014 10:58 [facility] Glucose, Serum 87 70 - 100 mg/dl 12/13/2014 10:58 [facility] Fasting? Unknown 12/13/2014 10:58 [facility] Blood specimen (specimen) BLOOD SPECIMEN / Unknown 12/13/2014 10:12 EDT 12/13/2014 10:27 EDT us Nuvia Patrick MD CHEMISTRY & BLOOD GAS ORDER GEORGINA Final Result [facility] [address] [place] [address] * (ABNORMAL) HEMAGRAM AND DIFFERENTIAL (12/13/2014 10:12 EDT) WBC 11.86 4.0 - 12.4 K/cmm 12/13/2014 10:53 [facility] RBC 4.06 3.86 - 5.04 M/cmm 12/13/2014 10:53 [facility] Hemoglobin 12.0 11.6 - 15.2 gm/dl 12/13/2014 10:53 [facility] HCT 35.7 34.9 - 44.4 % 12/13/2014 10:53 [facility] MCV 88 81 - 98 fl 12/13/2014 10:53 [facility] MCH 29.5 26.7 - 33.3 pg 12/13/2014 10:53 [facility] MCHC 33.6 32.1 - 35.9 gm/dl 12/13/2014 10:53 [facility] RDW-CV 12.5 11.7 - 14.6 % 12/13/2014 10:53 [facility] RDW-SD 39.4 37.6 - 50.3 fl 12/13/2014 10:53 [facility] PLT 396(H) 141 - 320 K/cm 12/13/2014 10:53 [facility] MPV 7.1(L) 7.5 - 11.2 fl 12/13/2014 10:53 [facility] Neutrophils 52.0 45.5 - 79.7 % 12/13/2014 11:51 [facility] Lymphocytes 38.0 15.0 - 46.8 % 12/13/2014 11:51 [facility] % Atyp Lymphs 1.0 % 12/13/2014 11:51 [facility] Monocytes 9.0 1.8 - 12.0 % 12/13/2014 11:51 [facility] ABS Neutrophils 6.16 2.20 - 8.85 K/cm 12/13/2014 11:51 [facility] ABS Lymphs 4.51(H) 1.09 - 3.30 K/cmm 12/13/2014 11:51 [facility] ABS Atyp Lymphs 0.12 K/cmm 5 11:51 [facility] ABS Monocytes 1.07(H) 0.1 - 0.8 K/cmm 12/13/2014 11:51 EDT [facility] Type of Diff: Manual 12/13/2014 11:51 EDT [facility] Blood specimen (specimen) BLOOD SPECIMEN / Unknown 12/13/2014 10:12 EDT 12/13/2014 10:27 EDT us Nuvia Patrick MD PACKAGES & DNA PROBE ORDERA BLES Final Result [facility] [address] [place] [address] documented in this encounter Visit Diagnoses Diagnosis Uveitis Unspecified iridocyclitis High risk medication use Encounter for long-term (current) use of other medications documented in this encounter Care Teams Gardening Supervisor Relationship Specialty Start Date End Date Santosh Saldivar MD [address] [place] [address] PCP - General 04/13/14 12/18/14 Nuvia Alejandra MD [address] [place] [id number] PCP - General Primary Care 12/19/14 06/26/15 documented as of this encounter
--- OUTSIDE RECORDS SUMMARY | 2024-08-21 14:10 | XMS_ITS | Encounter Summary ---
Author Organization [facility] Address [address] [place] [address] Care Team Providers Care Graduate Engineer Name Role Phone Santosh Saldivar MD Primary Care Provider [phone] Reason for Visit * Reason Comments Infusion remicade infusion. s aw a new pain specialist. would like to discuss that with you. Encounter Details Date Type Department Care Team (Late st Contact Info) Description 11/28/2014 8:00 EDT Nurse Only [facility] - [facility] [place] [address] [place] [id number] Unknown, Provider, Nuvia Macias MD [address] [place] [address],[address] [place], [place] [id number] Infusion, Eulalio Dumont MD Uveitis (Primary Dx) Discharge Disposition: Auto Discharge [...] Sign Reading Time Taken Comments Blood Pressure 100/51 11/28/2014 0950 EDT Pulse 70 11/28/2014 0950 EDT Temperature 35.9 ??C (96.6 ??F) 11/28/2014 0950 EDT Respiratory Rate - - Oxygen Saturation - - Inhaled Oxygen Concentration - - Weight 55.9 kg (123 lb 3.8 oz) 11/28/2014 0746 E DT Height 166.5 cm (5' 5.55) 11/28/2014 0746 EDT Body Mass Index 20.16 11/28/2014 0746 EDT Body Mass Index Percentile 32.19% 11/28/2014 074 6 EDT Growth Chart: [facility] (Girls, 2- 20 Years) documented in this encounter Discharge Diagnoses Diagnosis 364.3 IRIDOCYCLITIS NOS[ICD-9-CM] documented in this encounter Discharge Disposition Disposition Code Departure Means Destination Auto Discharge documented in this encounter Progress Notes * Marleny Gomez - 11/28/2014 1455 EDT Child Diego connected with [place] during [facility]. [place] was offered a diversional activity to pass the time while she waited for her infusion to be complete; [place] declined as she brought her own. Child Diego will continue to provide support to [place] and familyduring future hospital visits. Marleny Gomez, CCLS Pager:[phone] * Alona Ayala, SCOTT - 11/28/2014 1024 EDT I was supervised by Nuvia Patrick who was present and immediately available in the office suite. ALONA AYALA RN 11/28/2014 10:24 Patient arrived for Remicade infusion. Was given methylpred 40mg. Should be using Tylenol and Benadryl not methylpred. Therapy plan to be clarified by Dr Patrick. Additional labs were drawn for doctor in [facility]. Tolerated infusion well with no complications. documented in this encounter Plan of Treatment Not on file documented as of this encounter Procedures Procedure Name Priority Date/Time Associated Diagnosis Comments SED RATE Routine 11/28/2014 7:45 EDT Uveitis COMPLETE BLOOD COUNT AND DIFFERENTIAL Routine 11/28/2014 7:45 EDT Uveitis C REACTIVE PROTEIN Routine 11/28/2014 7: 45 EDT Uveitis COMPREHENSIVE METABOLIC PANEL (CMP) Routine 11/28/2014 7:45 EDT Uveitis documented in this encounter Results * (ABNORMAL) COMPREHENSIVE METABOLIC PANEL (CMP) (11/28/2014 7:45 EDT) Potassium 4.2 3.5 - 5.0 mEq/L 11/28/2014 9:27 [facility] Sodium 137 136 - 145 mEq/L 11/28/2014 9:27 [facility] Chloride 97 96 - 110 mEq/L 11/28/2014 9:27 [facility] CO2 25 24 - 32 mEq/L 11/28/2014 9:27 [facility] Total Alkaline Phosphatase 131(H) 38 - 126 U/L 11/28/2014 9:27 [facility] Bilirubin, Total <0.5 <1.4 mg/dl 11/29/19 15 9:27 [facility] AST 179(H) 15 - 46 U/L 11/28/2014 9:27 [facility] ALT 260(H) <53 U/L 11/28/2014 9:27 [facility] Albumin 4.7 3.4 - 4.9 g/dl 11/28/2014 9:27 [facility] Total Protein 8.1 6.5 - 8.3 g/dl 11/28/2014 9:27 [facility] Creatinine 0.57 0.52 - 1.04 mg/dl 11/28/2014 9:27 [facility] GFR, Calculated >60 >60 ml/min/1.7 3m2 11/28/2014 9:27 [facility] BUN 7(L) 10 - 26 mg/dl 11/28/2014 9:27 [facility] Calcium 9.8 8.5 - 10.5 mg/dl 11/28/2014 9:27 [facility] Calculated Calcium 9.5 8.5 - 10.5 mg/dl 11/28/2014 9:27 EDT [facility] Glucose, Serum 87 70 - 100 mg/dl 11/28/2014 9:27 EDT [facility] Fasting? Unknown 11/28/2014 8:37 EDT [facility] Blood specimen (specimen) BLOOD SPECIMEN / Unknown 11/28/2014 7:45 EDT 11/28/2014 8:34 EDT us Nuvia Patrcik MD CHEMISTRY & BLOOD GAS ORDER [place] Final Result [facility] [address] [place] [address] * (ABNORMAL) C-REACTIVE PROTEIN (11/28/2014 7:45 EDT) [facility] C-Reactive Protein 1.4(H) <1.0 mg/dl 11/28/2014 9:27 EDT [facility] Blood specimen (specimen) BLOOD SPECIMEN / Unknown 11/28/2014 7:45 EDT 11/28/2014 8:34 EDT us Nuvia Patrick MD CHEMISTRY & BLOOD GAS ORDER GE[place]GINA Final Result Performing Organization Address City/[facility]/ZIP Co de Phone Number [facility] [address] [place] [address] * (ABNORMAL) SED. RATE:ASAD (11/28/2014 7:45 EDT) Pathologist [facility] Sed. Rate Westergren 29(H) 0 - 20 mm/hr 11/28/2014 9:20 EDT [facility] Blood specimen (specimen) BLOOD SPECIMEN / Unknown 11/28/2014 7:45 EDT 11/28/2014 8:34 EDT us Nuvia Patrick MD HEMATOLOGY & PF4 ORDERABLES Final Result Performing Organization Address City/[facility]/ZIP Co de Phone Number [facility] [address] [place] [address] * (ABNORMAL) HEMAGRAM AND DIFFERENTIAL (11/28/2014 7:45 EDT) WBC 12.51(H) 4.0 - 12.4 K/cmm 11/28/2014 9:01 [facility] RBC 4.24 3.86 - 5.04 M/cmm 11/28/2014 9:01 [facility] Hemoglobin 12.7 11.6 - 15.2 gm/dl 11/28/2014 9:01 [facility] HCT 37.5 34.9 - 44.4 % 11/28/2014 9:01 [facility] MCV 89 81 - 98 fl 11/28/2014 9:01 [facility] MCH 30.1 26.7 - 33.3 pg 11/28/2014 9:01 [facility] MCHC 34.0 32.1 - 35.9 gm/dl 11/28/2014 9:01 [facility] RDW-CV 12.9 11.7 - 14.6 % 11/28/2014 9:01 [facility] RDW-SD 39.8 37.6 - 50.3 fl 11/28/2014 9:01 [facility] PLT 275 141 - 320 K/cmm 11/28/2014 9:01 [facility] MPV 7.4(L) 7.5 - 11.2 fl 11/28/2014 9:01 [facility] Neutrophils 26.0(L) 45.5 - 79.7 % 11/28/2014 15:16 [facility] % Bands 1.0 % 11/28/2014 15:16 [facility] Lymphocytes 40.0 15.0 - 46.8 % 11/28/2014 15:16 [facility] % Atyp Lymphs 29.0 % 11/28/2014 15:16 [facility] Monocytes 4.0 1.8 - 12.0 % 11/28/2014 15:16 [facility] ABS Neutrophils 3.25 2.20 - 8.85 K/cmm 11/28/2014 15:16 EDT [facility] ABS Bands 0.13 K/cmm 11/28/2014 15:16 T [facility] ABS Lymphs 5.00(H) 1.09 - 3.30 K/cmm 11/28/2014 15:16 T [facility] ABS Atyp Lymphs 3.63 K/cmm 5 15:16 [facility] ABS Monocytes 0.50 0.1 - 0.8 K/cmm 11/28/2014 15:16 T [facility] Differential Comment Rev'd by Pathologist 11/28/2014 15:16 [facility] Type of Diff: Manual 11/28/2014 15:16 [facility] Blood specimen (specimen) BLOOD SPECIMEN / Unknown 11/28/2014 7:45 EDT 11/28/2014 8:34 EDT us Nuvia Patrick MD PACKAGES & DNA PROBE ORDERA BLES Final Result [facility] [address] [place] [address] documented in this encounter Visit Diagnoses Diagnosis Uveitis- Primary Unspecified iridocyclitis documented in this encounter Administered Medications Inactive Administered Medications - up to 3 most recent administrations Medication Order MAR Action Action Date Dose Rate Site inFLIXimab (REMICADE) 300 mg in sodium chloride (NS) 0.9 % 250 mL IVPB 300 mg, intravenous, Administer over 120 Minutes, CONTINUOUS ONE TIME INFUSION, Starting on Wed11/28/14 at 0815, Until Wed11/28/14 at 1250, RoutineIndications:Uveitis Rate Change 11/28/2014 10:10 EDT 300 mg 350 mL /hr Rate Change 11/28/2014 9:50 EDT 300 mg 250 mL/hr Rate Change 11/28/2014 9:35 EDT 300 mg 180 mL/hr methylPREDNISolone sod suc(PF) (SOLU-MEDROL) 40 mg/mL injection 40 mg 40 mg, intravenous, ONCE PRN, 1 dose, Starting on Wed11/28/14 at 0745, Until Wed11/28/14 at 0835, Pre-medication, RoutineIndications:Uveitis Given 11/28/2014 8:25 EDT 40 m g documented in this encounter Orders Medications Ordered That Gus ht Not Have Been Administered Count Last Ordered Date First Ordered Date acetaminophen (TYLENOL) tabl et 487.5-812.5 mg 1 11/28/2014 diphenhydrAMINE (BENADRYL) c apsule 25-50 mg 1 11/28/2014 EPINEPHrine (ADRENALIN) injection 0.5 mg 1 11/28/2014 documented in this encounter Care Teams Graduate Engineer Relationship Specialty Start Date End Date Santosh Saldivar MD [address] [facility] [place] [address] PCP - General 04/13/14 12/18/14 documented as of this encounter
--- OUTSIDE RECORDS SUMMARY | 2024-08-21 14:10 | XMS_ITS | Encounter Summary ---
Author Organization [facility] Address [address] [place] [address] Care Team Providers Care Applications Engineer Manufacturing Name Role Phone Nuvia Alejandra MD Primary Care Provider [phone] Encounter Details Date Type Department Care Team (Late st Contact Info) Description 06/05/2015 Phlebotomy Only [address] [address] Refrigerating Machine Operator, Outpatient Uveitis; High risk medication use Social [...] Date/Time Associated Diagnosis Comments SED RATE Routine 06/05/2015 16:32 EDT Uveitis COMPLETE BLOOD COUNT AND DIFFERENTIAL Routine 06/05/2015 16:32 EDT Uveitis C REACTIVE PROTEIN Routine 06/05/2015 16 :32 EDT Uveitis COMPREHENSIVE METABOLIC PANEL (CMP) Routine 06/05/2015 16:32 EDT Uveitis documented in this encounter Results * C REACTIVE PROTEIN (06/05/2015 16:32 EDT) Pathologist [facility] C Reactive Protein <7.0 <10.0 mg/L 06/05/2015 18:01 EDT [facility] Comment: Note units change to mg/L. Values will be 10 fold higher than with previous units of mg/dl. Blood specimen (specimen) BLOOD SPECIMEN / Unknown 06/05/2015 16:32 EDT 06/05/2015 16:58 EDT Juve Pond MD CHEMISTRY & BLOOD GAS ORDERABLES Final Result [facility] [address] [place] [address] * (ABNORMAL) COMPREHENSIVE METABOLIC PANEL (CMP) (06/05/2015 16:32 EDT) [facility] Potassium 4.4 3.5 - 5.0 mEq/L 06/05/2015 18:01 [facility] Sodium 140 136 - 145 mEq/L 06/05/2015 18:01 [facility] Chloride 102 96 - 110 mEq/L 06/05/2015 18:01 [facility] CO2 26 24 - 32 mEq/L 06/05/2015 18:01 [facility] Total Alkaline Phosphatase 82 38 - 126 U/L 06/05/2015 18:01 [facility] Bilirubin, Total <0.5 <1.4 mg/dl 06/05/20 15 18:01 [facility] AST 41 15 - 46 U/L 06/05/2015 18:01 [facility] ALT 48 <53 U/L 06/05/2015 18:01 [facility] Albumin 4.9 3.4 - 4.9 g/dl 06/05/2015 18:01 [facility] Total Protein 9.0(H) 6.3 - 8.2 g/dl 06/05/2015 18:01 [facility] Creatinine 0.64 0.52 - 1.04 mg/dl 06/05/2015 18:01 [facility] GFR, Calculated 130 >60 ml/min/1.7 3m2 06/05/2015 18:01 [facility] Comment: eGFR calculated using CKD-EPI equation for non Americans. Multiply eGFR by 1.16 for Americans. BUN 13 10 - 26 mg/dl 06/05/2015 18:01 [facility] Calcium 9.7 8.5 - 10.5 mg/dl 06/05/2015 18:01 [facility] Calculated Calcium 9.2 8.5 - 10.5 mg/dl 06/05/2015 18:01 [facility] Glucose, Serum 97 70 - 100 mg/dl 06/05/2015 18:01 [facility] Fasting? Unknown 06/05/2015 18:32 [facility] Blood specimen (specimen) BLOOD SPECIMEN / Unknown 06/05/2015 16:32 EDT 06/05/2015 16:58 EDT us Juve Pond MD CHEMISTRY & BLOOD GAS ORDERABLES Final Result [facility] [address] [place] [id number] * (ABNORMAL) SED. RATE:WESTERGREN (06/05/2015 16:32 EDT) Sed. Rate Westergren 24(H) 0 - 20 mm/hr 06/05/2015 17:12 [facility] Blood specimen (specimen) BLOOD SPECIMEN / Unknown 06/05/2015 16:32 EDT 06/05/2015 16:58 EDT us Juve Pond MD HEMATOLOGY & PF4 ORDERABLES Nessa morrison Result [facility] [address] [place] [address] * (ABNORMAL) HEMAGRAM AND DIFFERENTIAL (06/05/2015 16:32 EDT) WBC 8.21 4.0 - 12.4 K/cmm 06/05/2015 17:14 [facility] RBC 4.28 3.86 - 5.04 M/cmm 06/05/2015 17:14 [facility] Hemoglobin 13.0 11.6 - 15.2 gm/dl 06/05/2015 17:14 [facility] HCT 38.6 34.9 - 44.4 % 06/05/2015 17:14 [facility] MCV 90 81 - 98 fl 06/05/2015 17:14 [facility] MCH 30.4 26.7 - 33.3 pg 06/05/2015 17:14 [facility] MCHC 33.7 32.1 - 35.9 gm/dl 06/05/2015 17:14 [facility] RDW-CV 12.8 11.7 - 14.6 % 06/05/2015 17:14 [facility] RDW-SD 40.3 37.6 - 50.3 fl 06/05/2015 17:14 [facility] PLT 342(H) 141 - 320 K/cmm 06/05/2015 17:14 [facility] MPV 7.8 7.5 - 11.2 fl 06/05/2015 17:14 [facility] % Neutrophils 53.3 45.5 - 79.7 % 06/05/2015 17:14 [facility] % Lymphocytes 38.3 15.0 - 46.8 % 06/05/2015 17:14 [facility] % Monocytes 6.1 1.8 - 12.0 % 06/05/2015 17:14 [facility] % Eosinophils 1.8 0.6 - 6.9 % 06/05/2015 17:14 EDT [facility] % Basophils 0.5 0.2 - 1.4 % 06/05/2015 17:14 [facility] ABS Neutrophils 4.37 2.20 - 8.85 K/cmm 06/05/2015 17:14 EDT [facility] ABS Lymphs 3.14 1.09 - 3.30 K/cmm 06/05/2015 17:14 T [facility] ABS Monocytes 0.50 0.1 - 0.8 K/cmm 06/05/2015 17:14 T [facility] ABS Eosinophils 0.15 0.03 - 0.61 K/cmm 06/05/2015 17:14 [facility] ABS Basophils 0.04 0.01 - 0.11 K/cmm 06/05/2015 17:14 [facility] Type of Diff: Automated 06/05/2015 17:14 [facility] Blood specimen (specimen) BLOOD SPECIMEN / Unknown 06/05/2015 16:32 EDT 06/05/2015 16:58 EDT Juve Pond MD PACKAGES & DNA PROBE ORDERABLES Final Result [facility] [address] [place] [address] documented in this encounter Visit Diagnoses Diagnosis Uveitis Unspecified iridocyclitis High risk medication use Encounter for long-term (current) use of other medications documented in this encounter Care Teams Applications Engineer Manufacturing Relationship Specialty Start Date End Date Nuvia Alejandra MD [address] [place] [id number] PCP - General Primary Care 12/19/14 06/26/15 documented as of this encounter
--- OUTSIDE RECORDS SUMMARY | 2024-08-21 14:10 | XMS_ITS | Encounter Summary ---
Author Organization [facility] Address [address] [place] [address] Care Team Providers Care Fence Manufacture Supervisor Name Role Phone Nuvia Alejandra MD Primary Care Provider [phone] Reason for Visit * Reason Comments Depression Here alone for roman clark up. Encounter Details Date Type Department Care Team (Late st Contact Info) Description 05/27/2015 15:30 EDT Office Visit [facility] Pediatric Primary Care [address] [address] Sofy Nicolas MD 1 [facility] Level [address] [place] [address] Depressed mood (Primary Dx); Psoriasis; Bacterial infection of skin Social History Tobacco Use Types Packs/Day Years [...] Pressure - - Pulse - - Temperature 36.8 ??C (98.3 ??F) 05/27/2015 1524 EDT Respiratory Rate - - Oxygen Saturation - - Inhaled Oxygen Concentration - - Weight - - Height - - Body Mass Index - - documented in this encounter Progress Notes * Oc Goldman MD - 05/27/2015 5825 EDT Subjective: Patient ID: Orlando Bearden is an 20 y.o. female. Chief Complaint Patient presents with ??? Depression Here alone for follow up. HPI: Orlando comes in today for a ROV for depression, which she states has not been a problem. She ishowever, concerned about a new distribution of psoriasis over her genital area and buttocks. She also says that she has been having recurrent boils on her buttocks which have been causing pain, especially with sitting in class. Earlier this year in December , orlando decided that she would try stopping the Prozac since she had not had any depressive symptoms in a long time. Since she stopped she has not noticed feeling down. She did say that while she was at home this summer with her parents she was feeling a little more anxious, which she attributes to her worrying about her family. Since she has started back at school she feels the anxiety is less and she says it is manageble. She also notes that she feels like she knows how to get counseling services at school and would ask for a new medication before things got bad. Atthis time she is not interested in restarting the Prozac or trying a different anti-anxiety medicati on. Orlando is mostly concerned with the psoriasis and the boils. She said that she has begun having psoriasis in the pelvic region, genitalia and buttocks and that the psoriasis does not seem to be as responsive to the tacrolimus. She has had recurrent lesions since the beginning of the summer. She did not see her new director of research center Dr. Pond over the summer, athough she did get infusions of Infliximab,so she has not been able to discuss these lesions with her. She says that she currently is not in an intimate relationship, however, she would not be intimate with anyone while she has the psoriasis in her pelvic region. Orlando says that also during the summer she has noticed recurrent boils on her buttocks that are extremely painful, will get large then drain with bloody pus, usually after a hot shower. Now that school is in session she reports these interferring with her ability to concentrateas it is painful to sit in lecture. She has no currently actively draining boil. She has had no significant change in medical, family, or social history since the last visit. She is no longer in a relationship with her boyfriend of last year, she says that she is fine with this and it has not caused her any significant grief. 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 She states that she had a cold most of last week but is getting better. Last Depo shot was received in February at PCP office in [place]. Next shot due in May, would like to continue Depo for now - may consider copper iud in the future. Disease Management: N/A Patient Active Problem List [...] No Review of Systems Constitutional: Negative for fever, activity change and appetite change. HENT: Positive for congestion and rhinorrhea. Eyes: Negative for redness and itching. Respiratory: Positive for cough. Gastrointestinal: Negative for nausea, vomiting and diarrhea. Genitourinary: Positive for genital sores (as HPI). Negative for frequency and difficulty urinating. Musculoskeletal: Negative for back pain. Skin: Positive for wound (infections as per HPI). Allergic/Immunologic: Positive for immunocompromised state (Secondary to infliximab). Neurological: Negative for dizziness and headaches. Psychiatric/Behavioral: Negative for suicidal ideas and dysphoric mood. The patient is nervous/anxious (as per HPI). - See HPI Objective: Temp(Src) 36.8 ??C (98.3 ??F) (Tympanic) No blood pressure reading on file for this encounter. Physical Exam Constitutional: She appears well-developed and well-nourished. No distress. Nose: No nasal discharge. Mouth/Throat: Mucous membranes are moist. Dentition is normal. No tonsillar exudate. Oropharynx is clear. Eyes: Conjunctivae are normal. Right eye exhibits no discharge. Left eye exhibits no discharge. No scleral icterus. Neck: Normal range of motion. Neck supple. No thyromegaly present. Cardiovascular: Normal rate, regular rhythm, normal heart sounds and intact distal pulses. Exam reveals no gallop and no friction rub. No murmur heard. Pulmonary/Chest: Effort normal and breath sounds normal. No stridor. No respiratory distress. She has no wheezes. She has no rhonchi. She has no rales. She exhibits no tenderness and no retraction. Abdominal: Soft. She exhibits no distension and no mass. There is no hepatosplenomegaly. There is no tenderness. Genitourinary: There are numerous papules and macules over the mons, right and left labia majora, inner thigh and over the buttocks. Some with scale over erythematous base, some large with induration and fluctuance, several pustules. No actively draining lesions. Patient shaves pubic hair, many of the sores are in this distribution. There is a fissured erythematous area in the superior gluteal fold. All of these lesions are tender to palpation. Musculoskeletal: She exhibits no edema. Lymphadenopathy: She has no cervical adenopathy. Neurological: She is alert. She exhibits normal muscle tone. Skin: Skin is warm. Rash (scaly macules on erythematous base surrounding umbilicuis, left pinna with scale over erythematous base on helix, and fissured erythematous maculu at eh junction of the ear lobe and cheek) noted. No ecchymosis and no petechiae noted. She is not diaphoretic. Nails show no cl ubbing. Psychiatric: Her behavior is normal. Judgment and thought content normal. Slightly flat affect Nursing note and vitals reviewed. Labs: N/A Assessment and Plan: Orlando was seen today for depression, psoriasis, recurrent skin infections and contraceptive maintenance. Diagnoses and associated orders for this visit: Depressed mood: Orlando has self discontinued her Prozac and has been managing well without depressive symptoms. She does feel like she knows how to counseling and psychiatric care at [facility]ing Services if she needs it. She is not interested in medication or therapy at this time. Psoriasis/Bacterial infection of skin: Orlando has psoriasis and is being treated with tacrolimus, however, it is difficult to tell whether the lesions in her pelvic and buttocks region are psoriatic lesions with secondary infections or if they are simply recurrent skin infections. Tacrolimus effect does not seem to be lasting as long as when initially started. She does not have a known history of contact with MRSA positive individuals. There were no actively draining lesions and to this point they all have self drained and have not required lancing. There were no draining sites visible to swabfor microbial evaluation today. It is concerning that she is beginning to have theses infections inthe setting of the infliximab, in addition I am concerned about the effects of tacrolimus on these lesions. At this point as there were no actively draining lesions or signs of suprainfection we decided not to treat with antibiotics today, however Dr. Nicolas will discuss with Dr. Pond. Patient has an appointment with Dr. Pond 06/05/15. - Monitor lesions closely for signs of worsening infection - Recommend a trial of not shaving pubis as is likely exacerbating irritation and superficial infections, Orlando felt uncomfortable with this but will try - Consider dermatology referral - RTC 1 month for f/u of rheumatology appointment Flu vaccination: Patient declined vaccination today, counseled and was given printed information and will follow up in one month. Contraceptive: Patient is currently covered with the Depo-prevera until end of May, currently she is considering non-hormonal options and will discuss at next visit. Application Performance Engineer was not used. Oc Goldman PGY-1 ATTESTATION: I saw and examined the patient. I agree with the resident's findings and plans as documented above and edited as necessary. Sofy Nicolas MD 05/28/2015 16:09, Adolescent Medicine documented in this encounter Plan of Treatment Not on file documented as of this encounter Visit Diagnoses Diagnosis Depressed mood- Primary Psoriasis Other psoriasis Bacterial infection of skin Unspecified local infection of skin and subcutaneous tissue documented in this encounter Care Teams Fence Manufacture Supervisor Relationship Specialty Start Date End Date Nuvia Alejandra MD [address] [place] [address] PCP - General Primary Care 12/19/14 06/26/15 documented as of this encounter
--- OUTSIDE RECORDS SUMMARY | 2024-08-21 14:10 | XMS_ITS | Encounter Summary ---
Author Organization [facility] Address [address] [place] [address] Care Team Providers Care Gold Nib Grinder Name Role Phone Santosh Saldivar MD Primary Care Provider [phone] Reason for Visit * Reason Onset Date Comments Bacterial Vaginosis 10/12/2014 Encounter Details Date Type Department Care Team (Late st Contact Info) Description 10/12/2014 Orders Only [facility] Pediatric Primary Care [address] [address] Sofy Nicolas MD 1 [facility] 3 [place] [address] Bacterial vaginosis (Primary Dx) Social History Tobacco Use Types [...] on file documented as of this encounter Ordered Prescriptions Prescription Sig Dispense Quantity Refills Last Filled Start Date End Date metroNIDAZOLE (METROGEL) 0.75 % gel Apply 1 application topically to affected area daily for 5 days Vaginal application for BV 1 Tube 0 10/12/2014 5 documented in this encounter Progress Notes * Sofy Nicolas MD - 10/12/2014 1122 EST 19yo patient seen for multiple issues including recent onset pelvic pain. Normal vaginal exam but vaginitis swab positive for BV. Metronidale gel prescription sent to pharmacy as Metronidazole oral has negative interactions with other medications that Orlando is on. Tried to reach Orlando at cell phonenumber but no answer and voice mail not set up. Will call back and try to reach father at home if unable to reach Orlando. Nurses informed in case Orlando calls clinic. Has f/u in 3 weeks. documented in this encounter Plan of Treatment Not on file documented as of this encounter Visit Diagnoses Diagnosis Bacterial vaginosis- Primary Vaginitis and vulvovaginitis, unspecified documented in this encounter Care Teams Gold Nib Grinder Relationship Specialty Start Date End Date Santosh Saldivar MD [address] [place] [address] PCP - General 04/13/14 12/18/14 documented as of this encounter
--- OUTSIDE RECORDS SUMMARY | 2024-08-21 14:10 | XMS_ITS | Encounter Summary ---
Author Organization [facility] Address [address] [place] [address] Care Team Providers Care Poultry Dressing Worker Name Role Phone Nuvia Alejandra MD Primary Care Provider [phone] Reason for Visit * Reason Onset Date Comments Other 03/13/2015 Encounter Details Date Type Department Care Team (Late st Contact Info) Description 03/13/2015 Telephone [facility] Pediatric Primary Care - [place] [address] [place], [place] [address] Nuvia Alejandra MD [address] [place] [address] Other Social History Tobacco Use Types Packs/Day [...] encounter Miscellaneous Notes * Telephone Encounter - Skyla Sainz RN - 03/13/2015 5079 EDT Orlando muro. Needs documentation from her last visit with Dr. Nicolas with information about her getting her Depo shot faxed to her PCP so she can get her next Depo shot. Santosh Boykin [phone] Visit of 12/27/[address] [facility]. Parent/guardian/patient understands and agrees withplan, verbalizing understanding. * Telephone Encounter - Yuliana Bess - 03/13/2015 1624 EDT QUESTIONS RE DEPO documented in this encounter Plan of Treatment Not on file documented as of this encounter Visit Diagnoses Not on filedocumented in this encounter Care Teams Poultry Dressing Worker Relationship Specialty Start Date End Date Nuvia Alejandra MD [address] [place] [address] PCP - General Primary Care 12/19/14 06/26/15 documented as of this encounter
--- OUTSIDE RECORDS SUMMARY | 2024-08-21 14:10 | XMS_ITS | Encounter Summary ---
Author Organization [facility] Address [address] [place] [address] Care Team Providers Care Music Agent Name Role Phone Nuvia Alejandra MD Primary Care Provider Encounter Details Date Type Department Care Team ([facility] st Contact Info) Description 05/23/2015 Orders Only [facility] Rheumatology & Immunology - [address] [address] Yancy Alvarez, RN Social History Tobacco Use Types Packs/Day [...] on filedocumented in this encounter Care Teams Music Agent Relationship Specialty Start Date End Date Nuvia Alejandra MD [address] [place] [address] PCP - General Primary Care 12/19/14 06/26/15 documented as of this encounter
--- OUTSIDE RECORDS SUMMARY | 2024-08-21 14:10 | XMS_ITS | Encounter Summary ---
Author Organization [facility] Address [address] [place] [address] Care Team Providers Care Piercer Name Role Phone Santosh Saldivar MD Primary Care Provider [phone] Encounter Details Date Type Department Care Team ([facility] st Contact Info) Description 12/13/2014 Orders Only [facility] Pediatric Rheumatology - [address] [address] Nuvia Patrcik MD [address] [place], [place] [id number] Elevated LFTs (Primary Dx); Uveitis Social History Tobacco Use [...] Date/Time Associated Diagnosis Comments OUTPATIENT ADD-ON Routine 12/13/2014 23: 04 EDT Elevated LFTs Uveitis documented in this encounter Results * OUTPATIENT ADD-ON (12/13/2014 23:04 EDT) Tests to be added EBV TITERS 12/13/2014 23:04 EDT [facility] Diagnosis Code Not Given 12/13/2014 23:09 EDT [facility] Number for problems 7 12/13/2014 23:04 EDT [facility] Comment:8200 Accession number [id number] 12/13/2014 23:09 EDT [facility] Acknowledge ABP Done 23:09 EDT [facility] BLOOD SPECIMEN / Unknown 12/13/2014 23:04 EDT 12/13/2014 23:08 EDT us Nuvia Patrick MD HEMATOLOGY & PF4 ORDERABLES Final Result [facility] [address] [place] [address] documented in this encounter Visit Diagnoses Diagnosis Elevated LFTs- Primary Other abnormal blood chemistry Uveitis Unspecified iridocyclitis documented in this encounter Care Teams Piercer Relationship Specialty Start Date End Date Santosh Saldivar [place] [address] PCP - General 04/13/14 12/18/14 documented as of this encounter
--- OUTSIDE RECORDS SUMMARY | 2024-08-21 14:10 | XMS_ITS | Encounter Summary ---
Author Organization [facility] Address [address] [place] [address] Care Team Providers Care Insurance Producer Name Role Phone Santosh Saldivar MD Primary Care Provider [phone] Nuvia Alejandra MD Primary Care Provider [phone] Reason for Visit * Reason Onset Date Comments Results 10/05/2014 Encounter Details Date Type Department Care Team (Late st Contact Info) Description 10/05/2014 Telephone [facility] Pediatric Rheumatology - [place] [address] [place] [address] Sailaja Barnard, SCOTT Results Social History Tobacco Use Types Packs/Day [...] encounter Miscellaneous Notes * Telephone Encounter - Sailaja Barnard RN - 10/05/2014 1031 EST Called PCP, [place], and Ortho. MRIs being faxed from [facility] and PCP. * Telephone Encounter - Sailaja Barnard RN - 10/05/2014 1031 EST Message copied by SAILAJA GARCIA on WedOct 05, 2014 1031 ------ Message from: NUVIA RUSSELL Created: WedOct 05, 2014 0815 Please call [facility] to get orthopedic visits and xrays, MRIs when seen for back pain, PCP may also have records ([facility] in [facility]). I would like to see the records of these visits and films. Nuvia ------ documented in this encounter Plan of Treatment Not on file documented as of this encounter Visit Diagnoses Not on filedocumented in this encounter Care Teams Insurance Producer Relationship Specialty Start Date End Date Santosh Saldivar MD [address] [place] [address] [place] [address] PCP - General 04/13/14 12/18/14 Nuvia Alejandra MD [address] [place] [address] PCP - General Primary Care 12/19/14 06/26/15 documented as of this encounter
--- OUTSIDE RECORDS SUMMARY | 2024-08-21 14:10 | XMS_ITS | Encounter Summary ---
Author Organization [facility] Address [address] [place] [address] Care Team Providers Care Coding Educator Name Role Phone Nuvia Alejandra MD Primary Care Provider [phone] Reason for Visit * Reason Onset Date Comments Orders (Non Pre-visit) 03/19/2015 Remicaid Encounter Details Date Type Department Care Team ([facility] st Contact Info) Description 03/19/2015 Telephone [facility] Rheumatology & Immunology - [address] [address] Juve Pond Chi, MD [address] [place] [address], [address] [place] [address] Orders (Non Pre-visit) (Remicaid) Social History Tobacco Use Types Packs/Day Years [...] Telephone Encounter - Samia Parekh RN - 03/19/2015 1012 EDT Faxed Remicade order to PCP office, attn: Soha. * Telephone Encounter - Katrina Brownlee V. - 03/19/2015 0947 EDT Please fax remicaid order to PCP at [phone] documented in this encounter Plan of Treatment Not on file documented as of this encounter Visit Diagnoses Not on filedocumented in this encounter Care Teams Coding Educator Relationship Specialty Start Date End Date Nuvia Alejandra MD [address] [place] [address] PCP - General Primary Care 12/19/14 06/26/15 documented as of this encounter
--- OUTSIDE RECORDS SUMMARY | 2024-08-21 14:11 | XMS_ITS | Encounter Summary ---
Author Organization [facility] Address [address] [place] [address] Care Team Providers Care School Secretary Name Role Phone Unavailable Primary Care Provider Unavailabl e Encounter Details Date Type Department Care Team (Latest Contact Info) Description 04/09/2006 9:49 EDT - 04/09/2006 11:59 EDT Hospital Encounter [facility] [address] [place] [address] Nuvia Patrick MD [address] [facility],[address] [place] [address] Discharge Disposition: Auto Discharge Social History Tobacco Use Types Packs/Day Years Used Date Smoking Tobacco: Never Assessed Comments Unknown Sex and Gender Information Value Date Recorded Sex Assigned at Not on file Legal Sex Female 18:19 EST Gender Identity Not on file Sexual Orientation Not on file documented as of this encounter Discharge Disposition Disposition Code Departure Means Destination Auto Discharge documented in this encounter Plan of Treatment Not on file documented as of this encounter Procedures Procedure Name Priority Date/Time Associated Diagnosis Comments VANESSA TITER Routine 04/09/2006 12:13 EDT SED RATE Routine 04/09/2006 12:13 EDT COMPLETE BLOOD COUNT AND DIFFERENTIAL Routine 04/09/2006 12:13 EDT ANTISTREP O TITER, S Routine 04/09/2006 12:13 EDT ANTI NUCLEAR AB (VANESSA), IFA Routine 04/09/2006 12:13 EDT HEPATIC FUNCTION PANEL (ALB,ALK PHOS,ALT,AST,DBIL,TOT MACK,TOT PROT) Routine 04/09/2006 12:13 EDT URINALYSIS WITH MICROSCOPIC IF POSITIVE Routine 04/09/2006 11:24 EDT UA REFLEX Routine 04/09/2006 11:24 EDT documented in this encounter Results * SED. RATE:WESTERGREN (04/09/2006 12:13 EDT) Sed. Rate Westergren 17 0 - 20 mm/hr [facility] 04/09/2006 12:1 3 EDT 04/09/2006 12:17 EDT Nuvia Patrick MD HEMATOLOGY & PF4 ORDERABLES Final Result [facility] [address] [place] [address] * (ABNORMAL) LIVER FUNCTION TESTS (04/09/2006 12:13 EDT) Albumin 5.5 3.0 - 5.5 g/dl [facility] Total Protein 9.4(H) 6.3 - 8.6 g/dl [facility] Total Alkaline Phosphatase 211 130 - 560 U/L [facility] ALT 21 10 - 35 U/L [facility] AST 33 16 - 46 U/L [facility] Unconjugated Bilirubin 0.4 0.1 - 1.1 mg/dl [facility] Conjugated Bilirubin 0.0 0.0 - 0.3 mg/dl [facility] Bilirubin, Total <0.5 0.0 - 1.4 mg/dl [facility] 04/09/2006 12:1 3 EDT 04/09/2006 12:17 EDT Nuvia Patrick MD CHEMISTRY & BLOOD GAS ORDER GEORGINA Final Result [facility] [address] [place] [address] * (ABNORMAL) HEMAGRAM AND DIFFERENTIAL (04/09/2006 12:13 EDT) WBC 7.99 4.5 - 13.0 K/cmm [facility] RBC 4.79 4.00 - 6.20 M/cmm [facility] Hemoglobin 13.6 11.5 - 15.5 gm/dl [facility] HCT 40.9 35.0 - 45.0 % [facility] MCV 85 77 - 95 fl [facility] MCH 28.5 pg [facility] MCHC 33.4 gm/dl [facility] PLT 495(H) 156 - 312 K/cmm [facility] RDW-CV 13.0 % [facility] % Neutrophils 63.8 % [facility] % Lymphocytes 27.7 % [facility] % Monocytes 6.3 % [facility] % Eosinophils 1.6 % [facility] % Basophils 0.6 % [facility] ABS Neutrophils 5.10 K/cmm [facility] ABS Lymphs 2.21 K/cmm [facility] ABS Monocytes 0.51 K/cmm [facility] ABS Eosinophils 0.13 K/cmm [facility] ABS Basophils 0.04 K/cmm [facility] Type of Diff: Automated [facility] 04/09/2006 12:1 3 EDT 04/09/2006 12:17 EDT us Nuvia Patrick MD PACKAGES & DNA PROBE ORDERA BLES Final Result [facility] [address] [place] [address] * (ABNORMAL) ANTI STREPTOLYSIN O (04/09/2006 12:13 EDT) Anti Strep O Screen 400(H) <200 RADHA U [facility] 04/09/2006 12:1 3 EDT 04/09/2006 12:17 EDT us Nuvia Patrick MD IMMUNOLOGY AND SEROLOGY ORD ERABLES Final Result Performing Organization Address City/[facility]/ZIP Co de Phone Number [facility] [address] [place] [address] * (ABNORMAL) VANESSA TITER (04/09/2006 12:13 EDT) VANESSA Titer 80(H) 0 - 40 dils [facility] Comment:Diffuse pattern 04/09/2006 12:1 3 EDT 04/09/2006 12:17 EDT us Nuvia Patrick MD IMMUNOLOGY AND SEROLOGY ORD ERABLES Final Result Performing Organization Address [facility] Co de Phone Number [facility] [address] [place] [address] * ANTI NUCLEAR ANTIBODY (04/09/2006 12:13 EDT) Anti Nuclear Ab Positive at 40 dils, titer to follow. 0 - 40 Dils [facility] 04/09/2006 12:1 3 EDT 04/09/2006 12:17 EDT us Nuvia Patrick MD IMMUNOLOGY AND SEROLOGY ORD ERABLES Final Result Performing Organization Address [facility] Co de Phone Number [facility] [address] [place] [address] * UA REFLEX (04/09/2006 11:24 EDT) UA Billing Microscopic not indicated. [facility] 04/09/2006 11:2 4 EDT 04/09/2006 17:22 EDT us Nuvia Patrick MD URINALYSIS ORDERABLES Final Result Performing Organization Address City/[facility]/ZIP Co de Phone Number [facility] [address] [place] [address] * URINALYSIS (04/09/2006 11:24 EDT) Color, UA Yellow [facility] Clarity, UA Clear [facility] Glucose, UA Norm NORM [facility] Bilirubin, UA Neg NEG [facility] Ketones, UA Neg NEG [facility] Specific [place], Urine 1.010 1.005 - 1.02 [facility] Blood, UA Neg NEG [facility] pH, UA 7.5 5.0 - 9.0 [facility] Protein, UA Neg NEG [facility] Urobilinogen, UA Norm NORM mg/dL [facility] Nitrite, UA Neg NEG [facility] Leuk Esterase Neg NEG [facility] 04/09/2006 11:2 4 EDT 04/09/2006 17:22 EDT us Nuvia Patrick MD URINALYSIS ORDERABLES Final Result [facility] [address] [place] [address] documented in this encounter Visit Diagnoses Not on filedocumented in this encounter
--- OUTSIDE RECORDS SUMMARY | 2024-08-21 14:11 | XMS_ITS | Encounter Summary ---
Author Organization [facility] Address [address] [place] [address] Care Team Providers Care Timber Bucker Name Role Phone Santosh Saldivar MD Primary Care Provider [phone] Encounter Details Date Type Department Care Team ([facility] st Contact Info) Description 05/28/2014 15:42 EDT - 05/28/2014 23:59 EDT Hospital Encounter [address] [address] Katrina Martinez, MANAGER OFFICE [address] [place] [phone] Discharge Disposition: Home or Self Care Social [...] as of this encounter Discharge Diagnoses Diagnosis 780.79 MALAISE[ICD-9-CM] 785.6 ENLARGEMENT LYMPH NODES[ICD-9-CM] documented in this encounter Medications at Time of Discharge inFLIXimab (REMICADE) 100 mg injection Inject 300 mg into the vein every 8 weeks FLUoxetine (PROZAC) 20 mg tablet Take 20 mg by mouth daily. 06/01/2015 methotrexate 2.5 mg tablet Take 6 Tabs by mouth once a week. 72 Tab 3 04/13/2014 04/13/2015 norethindrone-eth inyl estradiol (MICROGESTIN 09/18, 21,) 1-20 mg-mcg per tablet Take 1 Tab by mouth daily. 10/11/2014 documented as of this encounter Discharge Disposition Disposition Code Departure Means Destination Home or Self Senior Care documented in this encounter Plan of Treatment Pending Results Name Type Priority Associated Diagnoses Date /Time HEMAGRAM AND DIFFERENTIAL Lab Routine 05/28/2014 16:03 EDT Scheduled Orders Name Type Priority Associated Diagnoses Orde r Schedule HEMAGRAM AND DIFFERENTIAL Lab Routine One Time for 1 Occurrences starting 05/28/2014 until 05/28/2014 documented as of this encounter Procedures Procedure Name Priority Date/Time Associated Diagnosis Comments TESTS ADDED BY PHONE Routine 05/28/2014 16:03 EDT HE-ZURITA PANEL Routine 05/28/2014 16 :03 EDT DIFFERENTIAL Routine 05/28/2014 16:03 EDT MONO-TEST Routine 05/28/2014 16:03 EDT COMPLETE BLOOD COUNT Routine 05/28/2014 16:03 EDT documented in this encounter Results * HE-ZURITA PANEL (05/28/2014 16:03 EDT) EBNA IgG Interpretati on: Negative [facility] Comment: Absence of detectable EBNA IgG antibodies. VCA IgM Interpretati on: Negative [facility] Comment: Absence of detectable VCA IgM antibodies. VCA IgG Interpretati on: Negative [facility] Comment: Absence of detectable VCA IgG antibodies. EBV Interpretation Results would indicate no previous exposure to [facility] Comment:He-Zurita Virus. 05/28/2014 16:0 3 EDT 05/28/2014 17:08 EDT us Katrina Martinez NP IMMUNOLOGY AND SEROLOGY ORDERAB LES Final Result [facility] [address] [place] [address] * TESTS ADDED BY PHONE (05/28/2014 16:03 EDT) Tests to be added EBVPAN [facility] Diagnosis Code SAME [facility] Who Called TEST MISSED DUE TO ATLAS ERROR [facility] Location Code [facility] Read Back/Confirmed ? YES [facility] 05/28/2014 16:0 3 EDT 05/28/2014 17:08 EDT Katrina Martinez MANAGER OFFICE CHEMISTRY & BLOOD GAS ORDERABLE S Final Result Performing Organization Address City/[facility]/ZIP Co de Phone Number [facility] [address] [place] [address] * DIFFERENTIAL (05/28/2014 16:03 EDT) % Neutrophils 53.2 45.5 - 79.7 % [facility] % Lymphocytes 37.7 15.0 - 46.8 % [facility] % Monocytes 6.5 1.8 - 12.0 % [facility] % Eosinophils 1.9 0.6 - 6.9 % [facility] % Basophils 0.7 0.2 - 1.4 % [facility] ABS Neutrophils 4.18 2.20 - 8.85 K/cmm [facility] ABS Lymphs 2.96 1.09 - 3.30 K/cmm [facility] ABS Monocytes 0.51 0.1 - 0.8 K/cmm [facility] ABS Eosinophils 0.15 0.03 - 0.61 K/cmm [facility] ABS Basophils 0.05 0.01 - 0.11 K/cmm [facility] Type of Diff: Automated [facility] 05/28/2014 16:0 3 EDT 05/28/2014 17:08 EDT Katrina Martinez MANAGER OFFICE HEMATOLOGY & PF4 ORDERABLES Fin al Result Performing Organization Address City/[facility]/ZIP Co de Phone Number [facility] [address] [place] [address] * (ABNORMAL) HEMAGRAM (05/28/2014 16:03 EDT) WBC 7.85 4.0 - 12.4 K/cmm [facility] RBC 3.88 3.86 - 5.04 M/cmm [facility] Hemoglobin 12.2 11.6 - 15.2 gm/dl [facility] HCT 35.7 34.9 - 44.4 % [facility] MCV 92 81 - 98 fl [facility] MCH 31.3 26.7 - 33.3 pg [facility] MCHC 34.1 32.1 - 35.9 gm/dl [facility] PLT 392(H) 141 - 320 K/cmm [facility] RDW-CV 13.0 11.7 - 14.6 % [facility] 05/28/2014 16:0 3 EDT 05/28/2014 17:08 EDT Katrina Martinez MANAGER OFFICE HEMATOLOGY & PF4 ORDERABLES Fin al Result Performing Organization Address City/[facility] Co de Phone Number [facility] [address] [place] [address] * MONO-TEST (05/28/2014 16:03 EDT) [place]-Test Neg Neg [facility] 05/28/2014 16:0 3 EDT 05/28/2014 17:08 EDT Katrina Martinez MANAGER OFFICE CHEMISTRY & BLOOD GAS ORDERABLE S Final Result Performing Organization Address [facility] Co de Phone Number [facility] [address] [place] [address] documented in this encounter Visit Diagnoses Not on filedocumented in this encounter Care Teams Timber Bucker Relationship Specialty Start Date End Date Santosh Saldivar MD [address] [place] [address] [address] [place] [address] PCP - General 04/13/14 12/18/14 documented as of this encounter
--- OUTSIDE RECORDS SUMMARY | 2024-08-21 14:11 | XMS_ITS | Encounter Summary ---
Author Organization [facility] Address [address] [place] [address] Care Team Providers Care Website/Blog Editor Name Role Phone Santosh Saldivar MD Primary Care Provider [phone] Encounter Details Date Type Department Care Team ([facility] st Contact Info) Description 05/28/2014 Phlebotomy Only [address] [address] Research Investigator, Outpatient Social History Tobacco Use Types Packs/Day Years [...] on filedocumented in this encounter Care Teams Website/Blog Editor Relationship Specialty Start Date End Date Santosh Saldivar MD [address] [place] [address] PCP - General 04/13/14 12/18/14 documented as of this encounter
--- OUTSIDE RECORDS SUMMARY | 2024-08-21 14:11 | XMS_ITS | Encounter Summary ---
Author Organization [facility] Address [address] [place] [address] Care Team Providers Care Import Coordination And Production Head Name Role Phone Santosh Saldivar MD Primary Care Provider [phone] Reason for Visit * Reason Comments Follow-up remicade infusion. Encounter Details Date Type Department Care Team (Latest Contact Info) Description 08/15/2014 11:30 EST Office Visit [facility] Pediatric Rheumatology - Main [address] [address] Nuvia Patrick MD [address] [place] [address],[address] [place] [address] Uveitis (Primary Dx); High risk medication use Social History Tobacco [...] Sign Reading Time Taken Comments Blood Pressure 112/75 08/15/2014 1247 EST Pulse 70 08/15/2014 1247 EST Temperature 36 ??C (96.8 ??F) 08/15/2014 1247 EST Respiratory Rate - - Oxygen Saturation - - Inhaled Oxygen Concentration - - Weight 55.9 kg (123 lb 3.8 oz) 08/15/[address] Height 167.5 cm (5' 5.95) 08/15/2014 1247 EST Body Mass Index 19.92 08/15/2014 1247 EST Body Mass Index Percentile 29.80% 08/15/2014 124 7 EST Growth Chart: [facility] (Girls, 2- 20 Years) documented in this encounter Progress Notes * Nuvia Patrick - 08/15/2014 1423 EST Pediatric Rheumatology Follow-Up Visit 08/15/2014 Orlando Bearden is an 19 y.o. female who presents to the infusion bay for remicade treatment for idiopathic uveitis. She has been fairly healthy since last seen, she had an eye exam yesterday with and her eyes were clear. We are attempting to wean her to every 8 weeks infusions currently. She has been on remicade for quite some time for her uveitis. Humira was tried at one time but was ineffective. She has had psoriasis develop while on remicade but currently has no active skin disease. She had a facial rash that was seen by Dr. Franklin and felt to be herpes infection, it is drying up now. She had sinusitis earlier in the fall but seems to be fairly healthy currently, she has just fin ished her first semester at [employer]. She also takes methotrexate 15 mg weekly with no difficulty. Interval History: Since last visit Orlando has not experienced any symptoms. Outpatient Prescriptions Prior to Visit Medication Sig [...] once a week. 72 Tab 3 ??? norethindrone-ethinyl estradiol (MICROGESTIN 09/18, ,) 1-20 mg-mcg per tablet Take 1 Tab by mouth daily. Facility-Administered Medications Prior to Visit Medication Dose Route Frequency Provider Last Rate Last Dose ??? [COMPLETED] acetaminophen (TYLENOL) tablet 650 mg 650 mg oral Now Nuvia Patrick MD 650 mgat 08/15/14 7609 ??? [COMPLETED] diphenhydrAMINE (BENADRYL) capsule 25-50 mg 25-50 mg oral Once PRN Jase Patrick MD 25 mg at 08/15/14 1339 ??? EPINEPHrine (ADRENALIN) injection 0.5 mg 0.5 mg intramuscular Once PRN Nuvia Patrick MD ??? inFLIXimab (REMICADE) 300 mg in sodium chloride (NS) 0.9 % 250 mL IVPB 300 mg intravenous Now Nuvia Patrick MD 40 mL/hr at 08/15/14 1338 300 mg at 08/15/14 1338 ??? methylPREDNISolone sod suc(PF) (SOLU-MEDROL) 40 mg/mL injection 40 mg 40 mg intravenous Once PRN Nuvia Patrick MD ROS: System Negative Positive Comments Constitutional X Eyes X ENT X Cardiovascular X Pulmonary X Gastrointestinal X Genitourinary X Muscoloskeletal X Integument/breast X Neurological X Psychiatric X Endocrine X Hematologic/Lymph X Allergic/Immunologic X Allergies include: Ciprofloxacin; Clindamycin; and Penicillins Past [...] Hx ??? Crohn's Disease Neg Hx LABS: Nurse Only on 08/15/2014 Component Date Value ??? WBC 08/15/2014 10.32 ??? RBC 08/15/2014 4.25 ??? Hemoglobin 08/15/2014 13.1 ??? HCT 08/15/2014 38.3 ??? MCV 08/15/2014 90 ??? MCH 08/15/2014 30.8 ??? MCHC 08/15/2014 34.2 ??? PLT 08/15/2014 403* ??? RDW-CV 08/15/2014 12.8 ??? Neutrophils 08/15/2014 62.5 ??? Lymphocytes 08/15/2014 29.8 ??? Monocytes 08/15/2014 5.5 ??? Eosinophils 08/15/2014 1.5 ??? Basophils 08/15/2014 0.7 ??? ABS Neutrophils 08/15/2014 6.46 ??? ABS Lymphs 08/15/2014 3.07 ??? ABS Monocytes 08/15/2014 0.57 ??? ABS Eosinophils 08/15/2014 0.15 ??? ABS Basophils 08/15/2014 0.07 ??? Type of Diff: 08/15/2014 Automated ??? Sed. Rate Westergren 08/15/2014 25* ??? C-Reactive Protein 08/15/2014 2.9* ??? Potassium 08/15/2014 4.1 ??? Sodium 08/15/2014 138 ??? Chloride 08/15/2014 100 ??? CO2 08/15/2014 27 ??? Total Alkaline Phosphata* 08/15/2014 62 ? ? Bilirubin, Total 08/15/2014 <0.5 ??? AST 08/15/2014 30 ??? ALT 08/15/2014 29 ??? Albumin 08/15/2014 4.6 ??? Total Protein 08/15/2014 7.9 ??? Creatinine 08/15/2014 0.60 ? ? GFR, Calculated 08/15/2014 >60 ??? BUN 08/15/2014 9* ??? Calcium 08/15/2014 9.6 ??? Calculated Calcium 08/15/2014 9.4 ??? Glucose, Serum 08/15/2014 86 ??? Fasting? 08/15/2014 Unknown Nurse Only on 07/04/2014 Component Date Value ??? Sed. Rate Westergren 07/04/2014 17 ? ? C-Reactive Protein 07/04/2014 <0.7 ??? Potassium 07/04/2014 4.6 ??? Sodium 07/04/2014 137 ??? Chloride 07/04/2014 101 ??? CO2 07/04/2014 24 ??? Total Alkaline Phosphata* 07/04/2014 51 ? ? Bilirubin, Total 07/04/2014 <0.5 ??? AST 07/04/2014 56* ??? ALT 07/04/2014 53* ??? Albumin 07/04/2014 4.0 ??? Total Protein 07/04/2014 7.7 ??? Creatinine 07/04/2014 0.50* ? ? GFR, Calculated 07/04/2014 >60 ??? BUN 07/04/2014 9* ??? Calcium 07/04/2014 9.1 ??? Calculated Calcium 07/04/2014 9.5 ??? Glucose, Serum 07/04/2014 80 ??? Fasting? 07/04/2014 Unknown ??? WBC 07/04/2014 12.40 ??? RBC 07/04/2014 3.90 ??? Hemoglobin 07/04/2014 12.1 ??? HCT 07/04/2014 34.6* ??? MCV 07/04/2014 89 ??? MCH 07/04/2014 31.0 ??? MCHC 07/04/2014 35.0 ??? PLT 07/04/2014 402* ??? RDW-CV 07/04/2014 12.7 ??? Neutrophils 07/04/2014 68.8 ??? Lymphocytes 07/04/2014 24.4 ??? Monocytes 07/04/2014 4.8 ??? Eosinophils 07/04/2014 1.0 ??? Basophils 07/04/2014 1.0 ??? ABS Neutrophils 07/04/2014 8.54 ??? ABS Lymphs 07/04/2014 3.02 ??? ABS Monocytes 07/04/2014 0.59 ??? ABS Eosinophils 07/04/2014 0.12 ??? ABS Basophils 07/04/2014 0.12* ??? Type of Diff: 07/04/2014 Automated Admission on 06/25/2014, Discharged on 06/25/2014 Component Date Value ??? Specimen Description 06/25/2014 Urine ??? Result 06/25/2014 Greater than 100,000 CFU/ml Usual urogenital swathi. ??? Report Status 06/25/2014 06/27/2014 Final Nurse Only on 06/01/2014 Component Date Value ??? Sed. Rate Westergren 06/01/2014 14 ? ? C-Reactive Protein 06/01/2014 <0.7 ??? Potassium 06/01/2014 4.2 ??? Sodium 06/01/2014 138 ??? Chloride 06/01/2014 100 ??? CO2 06/01/2014 26 ??? Total Alkaline Phosphata* 06/01/2014 56 ? ? Bilirubin, Total 06/01/2014 <0.5 ??? AST 06/01/2014 30 ??? ALT 06/01/2014 21 ??? Albumin 06/01/2014 4.2 ??? Total Protein 06/01/2014 7.6 ??? Creatinine 06/01/2014 0.69 ? ? GFR, Calculated 06/01/2014 >60 ??? BUN 06/01/2014 9* ??? Calcium 06/01/2014 9.5 ??? Calculated Calcium 06/01/2014 9.7 ??? Glucose, Serum 06/01/2014 80 ??? Fasting? 06/01/2014 Unknown ??? WBC 06/01/2014 6.63 ??? RBC 06/01/2014 3.93 ??? Hemoglobin 06/01/2014 12.3 ??? HCT 06/01/2014 35.8 ??? MCV 06/01/2014 91 ??? MCH 06/01/2014 31.2 ??? MCHC 06/01/2014 34.3 ??? PLT 06/01/2014 392* ??? RDW-CV 06/01/2014 12.9 ??? Neutrophils 06/01/2014 37.5* ??? Lymphocytes 06/01/2014 50.9* ??? Monocytes 06/01/2014 7.7 ??? Eosinophils 06/01/2014 3.0 ??? Basophils 06/01/2014 0.9 ??? ABS Neutrophils 06/01/2014 2.48 ??? ABS Lymphs 06/01/2014 3.38* ??? ABS Monocytes 06/01/2014 0.51 ??? ABS Eosinophils 06/01/2014 0.20 ??? ABS Basophils 06/01/2014 0.06 ??? Type of Diff: 06/01/2014 Automated Hospital Outpatient Visit on 05/28/2014 Component Date Value ??? [place]-Test 05/28/2014 Neg ??? WBC 05/28/2014 7.85 ??? RBC 05/28/2014 3.88 ??? Hemoglobin 05/28/2014 12.2 ??? HCT 05/28/2014 35.7 ??? MCV 05/28/2014 92 ??? MCH 05/28/2014 31.3 ??? MCHC 05/28/2014 34.1 ??? PLT 05/28/2014 392* ??? RDW-CV 05/28/2014 13.0 ??? Neutrophils 05/28/2014 53.2 ??? Lymphocytes 05/28/2014 37.7 ??? Monocytes 05/28/2014 6.5 ??? Eosinophils 05/28/2014 1.9 ??? Basophils 05/28/2014 0.7 ??? ABS Neutrophils 05/28/2014 4.18 ??? ABS Lymphs 05/28/2014 2.96 ??? ABS Monocytes 05/28/2014 0.51 ??? ABS Eosinophils 05/28/2014 0.15 ??? ABS Basophils 05/28/2014 0.05 ??? Type of Diff: 05/28/2014 Automated ??? Tests to be added 05/28/2014 EBVPAN ??? Diagnosis Code 05/28/2014 SAME ??? Who Called 05/28/2014 TEST MISSED DUE TO ATLAS ERROR ??? Location Code 05/28/2014 [facility] ??? Read Back/Confirmed? 05/28/2014 YES ??? EBNA IgG 05/28/2014 Interpretation: Negative ??? VCA IgM 05/28/2014 Interpretation: Negative ??? VCA IgG 05/28/2014 Interpretation: Negative ??? EBV Interpretation 05/28/2014 Results would indicate no previous exposure to Physical Examination: BP 112/75 Pulse 70 Temp(Src) 36 ??C (96.8 ??F) (Tympanic) Ht 167.5 cm (65.95) Wt 55.9 kg (123 lb 3.8 oz) BMI 19.92 kg/m2 General: alert, cooperative and no acute distress Head/Neck: No adenopathy and normal thyroid Mouth: no oral ulcers and palate clear Chest: lungs clear, no wheezes and no rales CVS: RRR, normal pulses, no rub and systolic ejection murmur Abdomen: soft, , normal bowel sounds, no hepatosplenomegaly and no masses Skin: dried blister at right corner of mouth and some dry scales on cheek as well MSK: all joints have FROM, no pain on ROM, no swelling or limitation of range noted Impression/Plan: Idiopathic uveitis tolerating taper of remicade to every 8 weeks, once we get to that frequency would hold there. At point we are ready to taper would decrease dose of remicade rather than increase the interval between infusions. Discussed with Orlando. Will get her eyes checked prior to next infusion as well. She seems to have little in the way of current intercurrent illness although it sounds lik e she has had some issues since starting college. We will monitor this clinically and I asked her to let me know if she gets recurrent lip infections, may be a candidate for acyclovir? I spent a total of 15 minutes in face to face time with this patient and 10 minutes of that time was spent in counseling and coordination of care as described in the progress note. Nuvia Patrick MD 08/15/2014 14:24 documented in this encounter Plan of Treatment Not on file documented as of this encounter Visit Diagnoses Diagnosis Uveitis- Primary Unspecified iridocyclitis High risk medication use Encounter for long-term (current) use of other medications documented in this encounter Historical Medications * This list may reflect changes made after this encounter. TACROLIMUS (PROTOPIC TOP) Apply topically as needed. 8 added in this encounter Care Teams Import Coordination And Production Head Relationship Specialty Start Date End Date Santosh Saldivar MD [address] [place] [place] [address] PCP - General 04/13/14 12/18/14 documented as of this encounter
--- OUTSIDE RECORDS SUMMARY | 2024-08-21 14:11 | XMS_ITS | Encounter Summary ---
Author Organization [facility] Address [address] [place] [address] Care Team Providers Care Drywaller Name Role Phone Santosh Saldivar MD Primary Care Provider [phone] Encounter Details Date Type Department Care Team ([facility] st Contact Info) Description 09/25/2014 8:30 EST - 09/25/2014 8:31 [facility] Hospital Encounter [address] [address] Katrina Martinez, RESEARCH PROFESSOR [address] [place] [phone] Discharge Disposition: Home or Self Care Social [...] as of this encounter Discharge Diagnoses Diagnosis 788.1 DYSURIA[ICD-9-CM] documented in this encounter Medications at Time [...] on filedocumented in this encounter Care Teams Drywaller Relationship Specialty Start Date End Date Santosh Saldivar MD [address] [facility] [place] [address] PCP - General 04/13/14 12/18/14 documented as of this encounter
--- OUTSIDE RECORDS SUMMARY | 2024-08-21 14:11 | XMS_ITS | Encounter Summary ---
Author Organization [facility] Address [address] [place] [address] Care Team Providers Care Uppers Edge Burnisher Name Role Phone Santosh Saldivar MD Primary Care Provider [phone] Reason for Visit * Reason Comments Eye Pain Pt is having bilater al eye pain,with her left eye the more painful of the two. She was seen earlier at [facility] for a fever. She has uveitis which is made worse by fevers. Encounter Details Date Type Department Care Team (Late st Contact Info) Description 06/25/2014 14:33 EDT - 06/25/2014 20:[address] [facility] Emergency Department - [address] [id number] Thong Robbins MD [address] [place] [address], [address] [place] [address] Emergency, MD Rogers Eye pain (Primary Dx) Discharge Disposition: Home or Self Care Social [...] Sign Reading Time Taken Comments Blood Pressure 167/81 06/25/2014 1517 EDT Pulse 85 06/25/2014 1517 EDT Temperature 36.8 ??C (98.2 ??F) 06/25/2014 1517 EDT Respiratory Rate 16 06/25/2014 1517 EDT Oxygen Saturation 98% 06/25/2014 1517 EDT Inhaled Oxygen Concentration - - Weight 55.3 kg (122 lb) 06/25/2014 1517 EDT Height 167 cm (5' 5.75) 06/25/2014 1517 EDT Body Mass Index 19.84 06/25/2014 1517 EDT Body Mass Index Percentile 29.20% 06/25/2014 151 7 EDT Growth Chart: [facility] (Girls, 2- 20 Years) documented in this encounter Discharge Instructions * Discharge Instructions* Thong Robbins MD - 06/25/2014 20:00 EDT Follow up with opthalmology tomorrow for office appointment. Call at 8 am tomorrow to schedule an appointment documented in this encounter Medications at Time of Discharge inFLIXimab (REMICADE) 100 mg injection Inject 300 mg into the vein every 8 weeks doxycycline (VIBRAMYCIN) 100 mg capsule Take 100 mg by mouth 2 times daily. 05/31/2015 FLUoxetine (PROZAC) 20 mg tablet Take 20 mg by mouth daily. 06/01/2015 methotrexate 2.5 mg tablet Take 6 Tabs by mouth once a week. 72 Tab 3 04/13/2014 04/13/2015 norethindrone-eth inyl estradiol (MICROGESTIN 09/18, ,) 1-20 mg-mcg per tablet Take 1 Tab by mouth daily. 10/11/2014 documented as of this encounter Discharge Disposition Disposition Code Departure Means Destination Home or Self Care Car Home documented in this encounter ED Notes * Adeline Herndon RN - 06/25/20142008 EDT Pt verbalized understanding of d/c instructions. * Thong Robbins MD - 06/25/2014 181 EDT Images from the original note were not included. DOS: 06/25/2014 Chief Complaint Patient presents with ??? Eye Pain Pt is having bilateral eye pain,with her left eye the more painful of the two. [facility]. She has uveitis which is made worse by fevers. The patient is a 19 y.o. female who presents today with Eye Pain HPI Comments: Initial patient contact. 06/25/2014 18:12 Orlando Bearden is a 19 y.o. female who presents with a chief complaint of eye pain. Patient has past medical history significant for psoriatic arthritis and recurrent tightness. He is on Remicade. Patient last had a flare 2-1/2 years ago when trying to decrease Remicade dose. Patient now presents with bilateral eye pain that started yesterday. Patient also had low-grade fever. She presented to [facility]. [facility] where she was noted to have a UTI and was started on doxycycline and. Patient notes that since Wednesday she has had fevers up to 102. Patient actually denies any UTI symptoms with no frequency, urgency, abdominal pain, nausea, vomiting or diarrhea. Monospot was checked today that was negative. Patient notes it pain especially with extraocular motion. She denies any decreased visual acuity, blurry vision or double vision. In the past patient has had flares that required steroiddrops. She has also had previous episode of increased pressure consistent with glaucoma that was treated medically. Eye Pain Associated symptoms: no discharge, no headaches, no numbness, no redness and no weakness The history is provided by the patient. Review of Systems Constitutional: Positive for fever. Eyes: Positive for pain. Negative for discharge, redness and visual disturbance. Neurological: Negative for weakness, numbness and headaches. All other systems reviewed and are negative. Past Medical History Diagnosis Date ??? Psoriasis started on remicade ??? Varicella ??? Joint pain ??? Vision abnormalities ??? Hearing difficulty Past Surgical History Procedure Laterality Date ??? Cataract removal with implant Left ??? Glaucoma surgery Left Allergies Allergen Reactions ??? Clindamycin ??? Penicillins History Substance Use Topics ??? Smoking status: Never Smoker ??? Smokeless tobacco: Not on file ??? Alcohol Use: No Family History Problem Relation Age of Onset ??? Ankylosing spondylitis Neg Hx ??? Arthritis-Rheumatoid Neg Hx ??? Inflammatory Bowel Disease Neg Hx ??? Psoriasis Neg Hx ??? Psoriatic arthritis Neg Hx ??? Rheumatologic Disease Neg Hx ??? Scleroderma Neg Hx ??? SLE Neg Hx ??? Ulcerative Colitis Neg Hx ??? Crohn's Disease Neg Hx Vital Signs Vitals Reassessment?: Yes Temp: 36.8 ??C (98.2 ??F) Temp src: Tympanic Pulse: 85 Resp: 16 SpO2: 98 % BP: 167/81 mmHg BP Device: BP Machine Patient Position: Sitting BP Cuff Location: Left arm Physical Exam Nursing note and vitals reviewed. Constitutional: She is oriented to person, place, and time. She appears well- developed and well-nourished. No distress. HENT: Head: Normocephalic. Eyes: EOM are normal. Right eye exhibits no chemosis, no discharge and no exudate. Left eye exhibits no chemosis, no discharge and no exudate. Right conjunctiva is not injected. Left conjunctiva is not injected. No scleral icterus. Pupils are unequal (right 3 mm, left 5 mm). Fundoscopic exam: The right eye shows no papilledema. The left eye shows no papilledema. Slit lamp exam: The right eye shows no corneal flare, no hyphema and no hypopyon. The left eye shows no corneal flare, no hyphema and no hypopyon. Right 12 and 13 Left 16, 13 and 14 tonopen Neck: Neck supple. Cardiovascular: Normal rate and regular rhythm. Musculoskeletal: Normal range of motion. She exhibits no edema. Neurological: She is alert and oriented to person, place, and time. Skin: Skin is warm and dry. No rash noted. Psychiatric: She has a normal mood and affect. Radiology orders: None Imaging Results None Procedures ED Course: A medical screening exam was performed. Discussed with Opthalmology who will see in office tomorrow. Prior to discharge usual and customary precautions were reviewed with the patient and/or family including follow-up instructions and reasons to return to the Emergency Department if condition worsens, does not improve as expected, or other new concerns arise. Disposition: Discharged The patient's pain was managed to an adequate level weighing risk vs. benefit of further medications. Upon departure from the Emergency Department, the patient's pain was 2 on a zero to ten scale. Condition at departure from the Emergency Department: Stable ED Current Prescriptions None MDM Number of Diagnoses or Management Options Eye pain: Diagnosis management comments: 3 Amount and/or Complexity of Data Reviewed Discuss the patient with other providers: yes Patient Progress Patient progress: stable Final diagnoses: Eye pain PCP: Santosh Saldivar MD 06/26/2014 0:04 No flowsheet data found. documented in this encounter Plan of Treatment Not on file documented as of this encounter Procedures Procedure Name Priority Date/Time Associated Diagnosis Comments BACTERIAL CULTURE, URINE Routine 06/25/2014 14:32 EDT documented in this encounter Results * BACTERIAL CULTURE, URINE (06/25/2014 14:32 EDT) Specimen Description Urine [facility] Result Greater than 100,000 CFU/ml Usual urogenital swathi. [facility] Report Status 06/27/2014 Final [facility] URINE / Unknown 06/25/2014 1 4:32 EDT 06/25/2014 17:57 EDT Katrina Martinez SENIOR TECHNICAL ANALYST MICROBIOLOGY - GENERAL ORDERABL ES Final Result Performing Organization Address City/State/[facility] Co de Phone Number [facility] [address] [place] [address] documented in this encounter Visit Diagnoses Diagnosis Eye pain- Primary Pain in or around eye documented in this encounter Care Teams Uppers Edge Burnisher Relationship Specialty Start Date End Date Santosh Saldivar MD [address] [place] [address] [place] [address] PCP - General 04/13/14 12/18/14 documented as of this encounter
--- OUTSIDE RECORDS SUMMARY | 2024-08-21 14:11 | XMS_ITS | Encounter Summary ---
Author Organization [facility] Address [address] [place] [address] Care Team Providers Care Customer Marketing Manager Name Role Phone Santosh Saldivar MD Primary Care Provider [phone] Encounter Details Date Type Department Care Team ([facility] st Contact Info) Description 04/13/2014 Orders Only [facility] Pediatric Surgery - [facility] [address], [place] [address] Nuvia Patrick MD [address] [facility] [place], [place] [id number] Social History Tobacco Use Types Packs/Day Years [...] Refills Last Filled Start Date End Date methotrexate 2.5 mg tablet Take 6 Tabs by mouth once a week. 72 Tab 3 04/13/2014 04/13/2015 documented in this encounter Plan of Treatment Not on file documented as of this encounter Visit Diagnoses Not on filedocumented in this encounter Discontinued Medications Medication Sig Discontinue Reason Start Date End Da te METHOTREXATE SODIUM ORAL Take 6 Tabs by mouth once a week . 04/13/2014 documented as of this encounter Care Teams Customer Marketing Manager Relationship Specialty Start Date End Date Santosh Saldivar MD [address] [place] [address] PCP - General 04/13/14 12/18/14 documented as of this encounter
--- OUTSIDE RECORDS SUMMARY | 2024-08-21 14:11 | XMS_ITS | Encounter Summary ---
Author Organization [facility] Address [address] [place] [address] Care Team Providers Care Impression Printer Name Role Phone Santosh Saldivar MD Primary Care Provider [phone] Reason for Visit * Reason Comments Infusion Patient arrived for Remicade infusion. Encounter Details Date Type Department Care Team ([facility] st Contact Info) Description 05/04/2014 13:00 EDT Nurse Only [facility] - [address] [id number] Unknown, Provider, Nuvia Macias MD [address] [place] [address],[address] [place], [place] [id number] Infusion, Eulalio Corbin MD Uveitis (Primary Dx) Social History Tobacco Use [...] Sign Reading Time Taken Comments Blood Pressure 107/50 05/04/2014 1418 EDT Pulse - - Temperature 35.9 ??C (96.6 ??F) 05/04/2014 1345 EDT Respiratory Rate - - Oxygen Saturation - - Inhaled Oxygen Concentration - - Weight 56.2 kg (123 lb 14.4 oz) 05/04/2014 1200 EDT Height - - Body Mass Index 20.03 04/13/2014 1252 EDT Body Mass Index Percentile 32.42% 05/04/2014 120 0 EDT Growth Chart: [facility] (Girls, 2- 20 Years) documented in this encounter Progress Notes * Alona Ayala, RN - 05/04/2014 1421 EDT I was supervised by Nuvia Patrick who was present and immediately available in the office suite. ALONA AYALA RN 05/04/2014 14:21 Patient arrived for Remicade infusion. [employer] student first infusion here at [facility]. No complications documented in this encounter Plan of Treatment Not on file documented as of this encounter Procedures Procedure Name Priority Date/Time Associated Diagnosis Comments DIFFERENTIAL Routine 05/04/2014 12:20 EDT Uveitis SED RATE Routine 05/04/2014 12:20 EDT Uveitis COMPLETE BLOOD COUNT Routine 05/04/2014 12:20 EDT Uveitis COMPLETE BLOOD COUNT AND DIFFERENTIAL Routine 05/04/2014 12:20 EDT Uveitis C REACTIVE PROTEIN Routine 05/04/2014 12 :20 EDT Uveitis COMPREHENSIVE METABOLIC PANEL (CMP) Routine 05/04/2014 12:20 EDT Uveitis documented in this encounter Results * DIFFERENTIAL (05/04/2014 12:20 EDT) % Neutrophils 67.1 45.5 - 79.7 % [facility] % Lymphocytes 25.2 15.0 - 46.8 % [facility] % Monocytes 5.4 1.8 - 12.0 % [facility] % Eosinophils 1.5 0.6 - 6.9 % [facility] % Basophils 0.8 0.2 - 1.4 % [facility] ABS Neutrophils 4.55 2.20 - 8.85 K/cmm [facility] ABS Lymphs 1.71 1.09 - 3.30 K/cmm [facility] ABS Monocytes 0.37 0.1 - 0.8 K/cmm [facility] ABS Eosinophils 0.10 0.03 - 0.61 K/cmm [facility] ABS Basophils 0.05 0.01 - 0.11 K/cmm [facility] Type of Diff: Automated [facility] 05/04/2014 12:2 0 EDT 05/04/2014 13:36 EDT us Nuvia Patrick MD HEMATOLOGY & PF4 ORDERABLES Final Result Performing Organization Address City/[facility] Co de Phone Number [facility] [address] [place] [address] * (ABNORMAL) HEMAGRAM (05/04/2014 12:20 EDT) WBC 6.78 4.0 - 12.4 K/cmm [facility] RBC 3.50(L) 3.86 - 5.04 M/cmm [facility] Hemoglobin 10.8(L) 11.6 - 15.2 gm/dl [facility] HCT 31.7(L) 34.9 - 44.4 % [facility] MCV 91 81 - 98 fl [facility] MCH 30.9 26.7 - 33.3 pg [facility] MCHC 34.0 32.1 - 35.9 gm/dl [facility] PLT 326(H) 141 - 320 K/cmm [facility] RDW-CV 13.1 11.7 - 14.6 % [facility] 05/04/2014 12:2 0 EDT 05/04/2014 13:36 EDT us Nuvia Patrick MD HEMATOLOGY & PF4 ORDERABLES Final Result Performing Organization Address City/[facility] Co de Phone Number [facility] [address] [place] [address] * (ABNORMAL) COMPREHENSIVE METABOLIC PANEL (CMP) (05/04/2014 12:20 EDT) Potassium 4.5 3.5 - 5.0 mEq/L [facility] Comment: Moderate hemolysis Hemolysis may elevate potassium result. Sodium 139 136 - 145 mEq/L [facility] Comment:Moderate hemolysis Chloride 111(H) 96 - 110 mEq/L [facility] Comment:Moderate hemolysis CO2 20(L) 24 - 32 mEq/L [facility] Comment:Moderate hemolysis Total Alkaline Phosphatase 34(L) 38 - 126 U/L [facility] Comment: Moderate hemolysis Hemolysis will decrease ALKP result Suggest re-evaluation if clinically indicated Bilirubin, Total 1.2 <1.4 mg/dl [facility] Comment: Moderate hemolysis Results may be affected due to hemolysis. AST 53(H) 15 - 46 U/L [facility] Comment: Moderate hemolysis Results may be affected due to hemolysis. ALT 21 <53 U/L [facility] Comment: Moderate hemolysis Results may be affected due to hemolysis. Albumin 3.5 3.4 - 4.9 g/dl [facility] Comment: Moderate hemolysis Results may be affected due to hemolysis. Total Protein 6.6 6.5 - 8.3 g/dl [facility] Comment: Moderate hemolysis Results may be affected due to hemolysis. Creatinine 0.54 0.52 - 1.04 mg/dl [facility] Comment:Moderate hemolysis GFR, Calculated >60 >60 ml/min/1.7 3m2 [facility] BUN 8(L) 10 - 26 mg/dl [facility] Comment: Moderate hemolysis Results may be affected due to hemolysis. Calcium 7.4(L) 8.5 - 10.5 mg/dl [facility] Comment:Moderate hemolysis Calculated Calcium 8.3(L) 8.5 - 10.5 mg/dl [facility] Glucose, Serum 65(L) 70 - 100 mg/dl [facility] Comment: Moderate hemolysis Results may be affected due to hemolysis. Fasting? Unknown [facility] Blood specimen (specimen) 05/04/2014 12:20 EDT 05/04/2014 13:36 EDT us Nuvia Patrick MD CHEMISTRY & BLOOD GAS ORDER GEORGINA Final Result [facility] [address] [place] [address] * (ABNORMAL) C-REACTIVE PROTEIN (05/04/2014 12:20 EDT) Pathologist [facility] C-Reactive Protein 1.0(H) <1.0 mg/dl [facility] Comment: Moderate hemolysis Results may be affected due to hemolysis. Blood specimen (specimen) 05/04/2014 12:20 EDT 05/04/2014 13:36 EDT us Nuvia Patrick MD CHEMISTRY & BLOOD GAS ORDER GEORGINA Final Result Performing Organization Address [facility] Co de Phone Number [facility] [address] [place] [address] * SED. RATE:WESTERGREN (05/04/2014 12:20 EDT) Pathologist [facility] Sed. Rate Westergren 1 0 - 20 mm/hr [facility] Blood specimen (specimen) 05/04/2014 12:20 EDT 05/04/2014 13:36 EDT us Nuvia Patrick MD HEMATOLOGY & PF4 ORDERABLES Final Result Performing Organization Address [facility] Co de Phone Number [facility] [address] [place] [address] documented in this encounter Visit Diagnoses Diagnosis Uveitis- Primary Unspecified iridocyclitis documented in this encounter Administered Medications Inactive Administered Medications - up to 3 most recent administrations Medication Order MAR Action Action Date Dose Rate Site inFLIXimab (REMICADE) 300 mg in sodium chloride (NS) 0.9 % 250 mL IVPB 300 mg, intravenous, Administer over 120 Minutes, CONTINUOUS ONE TIME INFUSION, Starting on Wed05/04/14 at 1245, Until Wed05/04/14 at 1719, RoutineIndications:Uveitis Rate Change 05/04/2014 15:00 EDT 300 mg 350 mL /hr Rate Change 05/04/2014 14:54 EDT 300 mg 350 mL/hr Rate Change 05/04/2014 14:32 EDT 300 mg 250 mL/hr documented in this encounter Orders Medications Ordered That Gus ht Not Have Been Administered Count Last Ordered Date First Ordered Date acetaminophen (TYLENOL) tablet 650 mg 1 12/2013 diphenhydrAMINE (BENADRYL) c apsule 25-50 mg 1 05/04/2014 methylPREDNISolone sodium WALLER CCINATE (SOLU-MEDROL) injection 40 mg 1 05/04/2014 documented in this encounter Care Teams Impression Printer Relationship Specialty Start Date End Date Santosh Saldivar MD [address] [place] [address] PCP - General 04/13/14 12/18/14 documented as of this encounter
--- OUTSIDE RECORDS SUMMARY | 2024-08-21 14:11 | XMS_ITS | Encounter Summary ---
Author Organization [facility] Address [address] [place] [address] Care Team Providers Care Strip Presser Name Role Phone Unavailable Primary Care Provider Unavailabl e Encounter Details Date Type Department Care Team (Late st Contact Info) Description 10/01/2006 10:07 EST Hospital Encounter [facility] [place] [address] [place] [address] Nuvia Patrick MD [address] [place] [address],[address] [place] [address] Social History Tobacco Use Types Packs/Day Years [...]
--- OUTSIDE RECORDS SUMMARY | 2024-08-21 14:11 | XMS_ITS | Encounter Summary ---
Author Organization [facility] Address [address] [place] [address] Care Team Providers Care Dog Pound Attendant Name Role Phone Unavailable Primary Care Provider Unavailabl e Encounter Details Date Type Department Care Team ([facility] st Contact Info) Description 07/31/2005 Before PRISM Converted Visit (Maple) [facility] - Maple conversion [address] [place] [address] Nuvia Patrick MD [address] [facility] [place] [address] Social History Tobacco Use Types Packs/Day Years Used Date Smoking Tobacco: Never Assessed Comments Unknown Sex and Gender Information Value Date Recorded Sex Assigned at Not on file Legal Sex Female 18:19 EST Gender Identity Not on file Sexual Orientation Not on file documented as of this encounter Plan of Treatment Not on file documented as of this encounter Visit Diagnoses * Evaluation - Nuvia Patrick - 10/30/2009 1338 EST NEW PATIENT EVALUATION - 07/31/2005 PROBLEM #2: Uveitis. SUBJECTIVE: Orlando is a 10- year- old female referred here for evaluation of uveitis by her primary care provider, Dr. Freeman Herrera, and Dr. Franklin, her er tech. She had been sick over the last several weeks with sinusitis and upper respiratoryinfection. She awoke one morning with redness in herleft eye. Initial assessment was possible conjunctivitis but was referred to ophthalmology. She sawan er tech about 2 weeks ago and was diagnosed with uveitis actually in both eyes, worse inthe left. She has been on Pred Forte every other hour, now hourly, in the left eye , now 4 times a day in the right eye. She has improved, however, has what sounds like persistent cells on slit lamp exam. She has otherwise been well except a recent diagnosisof strep throat just a couple of days ago. She is currently on a cephalosporin antibiotic as well as the Pred Forte drops and dilating drops for the left eye. She did have a positive strep culture. Again, it sounds as if she had an intercurrent illnessaround the time that this uveitis was diagnosed. She otherwise really is very healthy. There is no history of unexplained fevers. She has had no swelling of her joints. There has been no joint stiffness or skin rash. She has had no fatigue, Raynaud'shair loss, or photosensitivity. She hasno history of mouth sores, vomiting, diarrhea, or weight loss. She has had no respiratory symptoms o ther than the intercurrent illnesses described above. She has had no history of urinary tract infections. She has no recent immunizations and her vaccinations are up to date. She has some environmental allergies. She occasionally has symptoms of reflux but that is not currently a problem. There is no history of hospitalizations or surgeries. She was a full- termbirth, weight 7 pounds, 1/2 ounce. She has a 5- year- old brother who is healthy. Growth and development have been fine. There krystal history of 2 cousins on Mom's side with JRA. There is no history of systemic lupus, spondyloarthropathies, psoriasis, thyroid disease, or Lyme disease. Actually I believe there is some thyroid disease on Mom's side of the family. Parents are healthy. Dad is 35 and in good health and manages a restaurant. Mom is 36 and in good health. She is a speech and languagepathologist. Again, she is healthy. Maternal grandmother has a past history of breast cancer. Otherwise no significant problems. There is some arthritis on Dad's side of the family which sounds like osteoarthritis. Orlando is in the 4th grade and is active in soccer, dance, and swimming. Her activities really have not changed except due to some visual problems initially with the uveitis. Now she seems to be seeing okay. She is due to see the er tech again shortly. She did have some laboratorytests obtained prior to cominghere including an angiotensin- converting enzyme which is normal, an HLA- B27 which is negative, a rheumatoid factor which is negative, a Toxocara canis titer which is negative, a toxoplasmosis titerwhich is normal, a CBCwhich does have an elevated white count of 15,000 with a sed rate of 52 whichis elevated. This may very well be related to her strep pharyngitis as this was drawn on the 27 of July around the time she was first diagnosed with that. She is referred here for evaluation ofpossible associated diagnoses. VANESSA is positive at a titre of 1:80. OBJECTIVE: On exam, she looks well. Her height is 141.5 cm, weight 36.7 kg, blood pressure 112/59. HEENT exam is unremarkable except for dilated left pupil. A full eye exam was done by myself today. Pharynx is clear. No thyromegaly is noted. C- spine motion is full. Heart, lungs, and abdomen are benign. Upper extremity joints range well with no pain on range or swelling noted. Hips, knees, ankles, and feetare fine with no pain on range or swelling noted. Muscle strength is excellent throughout.Back is straight. ASSESSMENT: Uveitis of unclear etiology, likely idiopathic. Only additional workup I would recommend at this time is a urinalysis. We did do that here in the office which was positive for some protein so we sent it to the lab for quantitation with a protein/creatinine ratio. The urine was evaluatedin light of the possible diagnosis of ZACH, which stands for a syndrome of tubulointerstitial nephritis and uveitis. I don't think her VANESSA is clinically significant and is minimally positive. PLAN: A lengthy discussion regarding uveitis, its possible associated diagnoses, treatment, and management issues were discussed at length. The majority of this 60- minute visit involved discussion regarding these issues. We also talked about possible use of 2nd- line drugs such as methotrexate or Remicade pending lack of response or steroid dependence. Possible complications of topical steroid drops including cataracts and elevated intraocular pressure were also discussed. Parents have done some reading and had some knowledge about these various issues. I suppose a chest x- ray looking for hilar adenopathy might be an additional study which I doubt will bevery likely positive. I at this point left that to be done should the uveitis be persistent, especially in light of her negative angiotensin- converting enzyme. No followup was planned here unless recommended by ophthalmology due to persistent or unresponsive uveitis. They are encouraged to call with concerns or questions. Signed by Nuvia Patrick MD 08/05/2005 16:38 DARR[facility] Albaision of Pediatric RheumatologyNuvia Patrick MD Nuvia Patrick MD Division of Pediatric Rheumatology - Nuvia Patrick MD A - O2 Job ID: [id number] Document ID: [id number] cc: MD Freeman Eubanks MD documented in this encounter
--- OUTSIDE RECORDS SUMMARY | 2024-08-21 14:11 | XMS_ITS | Encounter Summary ---
Author Organization [facility] Address [address] [place] [address] Care Team Providers Care Bookkeeping Teacher Name Role Phone Unavailable Primary Care Provider Unavailabl e Encounter Details Date Type Department Care Team ([facility] st Contact Info) Description 04/09/2006 Before PRISM Converted Visit (Maple) [facility] - Maple conversion [address] [place] [address] Nuvia Patrick MD [address] [facility] [place] [address] Social History Tobacco Use Types Packs/Day Years Used Date Smoking Tobacco: Never Assessed Comments Unknown Sex and Gender Information Value Date Recorded Sex Assigned at Not on file Legal Sex Female 18:19 EST Gender Identity Not on file Sexual Orientation Not on file documented as of this encounter Progress Notes * Nuvia Patrick - 08/23/2009 2301 EST PROGRESS/FOLLOWUP NOTE - 04/09/2006 PROBLEM 2: Chronic uveitis. SUBJECTIVE: Orlando is a 11- year- old female who I have seen on one occasion previously in July 2005, with uveitis. Uveitis is idiopathic. It sounds like she has had a chronic ongoing inflammationsince that time, with no significant period when shehas been off steroid drops. She has also been seen by Dr. Osei Golden in [place]. She has had no visual loss, scarring, or side effects from the steroid drops, but there is concern about the chronicity, and additional treatment was recommended. She is here to discuss options. Also of interest is Orlando's recurrent Strep pharyngitis episodes that have occurred in the last 8 months or so. It sounds like she has had three or four documented Strep infections. She has also had an elevated ASO titer, in general drawn during disease activity. There is a question of whether her uveitis may somehow be tied in to Strep. Mom brings in an article discussing a few episodes of Strep- induced uveitis presumably. Other than the Strep and the uveitis, Orlando has beenvery healthy. She is active. She has no musculoskeletal symptoms, rash, fevers, mouth sores, abdominal pain, etc. She occasionally gets some photophobia when her uveitis has flared, but otherwise is asymptomatic. She is followed by Dr. Foreign Franklin in [facility], and she is here to discuss additional approaches to treating uveitis, in order to spare her eyes from chronic exposure to cor ticosteroid drops. She is here with both her parents. Mom has copies of most of her medical records, and also has a lot of questions about the options she has heard about, which include methotrexate and Remicade. OBJECTIVE: Her examination really is benign. She has no significant tonsillar hypertrophy. Musculoskeletal examination is normal. Abdomen is benign. Heart and lungs are benign. ASSESSMENT: Chronic uveitis with no untoward effects to date from treatment or from chronic inflammation. We do know, however, that with the continued use of corticosteroids, she is very likely to develop side effects. I agree that at this point a second- line drug approach is warranted. I also think the possible association with Strep will inevitably be a very difficult one to prove but should be considered in light of the possible use of second line drugs being considered which have potentialside effects. PLAN: I discussed at length with the parents various options. We discussed whether tonsillectomy would reduce her inflammation in her eyes. I explained to them how that ultimately is an unanswerable question. I also questioned whether her frequency of Strep infections might independently warrant tonsillectomy. She certainly has no history of sleep apnea or speech difficulties due to enlarged tonsils. We also discussed various second line drugs, including nonsteroidal antiinflammatory drugs, methotrexate, and Remicade. We also discussed different ways to administer methotrexate, both orally and subcutaneously. After a lengthy discussion, we came up with the following plan: We went ahead and started her on Naprosyn at a dose of 15mg/kg per day divided in two doses. Potential risks and benefits were discussed. I told them that I thought Naprosyn alone was unlikely to decrease her need for steroid drops, but I certainly felt it was reasonable to try this. In the meantime they are, I believe, going to see an ENT evaluation. We talked about the risks of tonsillectomy, etc. and they will certainly get more information about that at the ENT visit. We talked about a trial of 6- 8 weeks on Naprosyn, and careful followup with Dr. Foreign Franklin, with plans to begin tapering the steroid drops perhaps in a couple of weeks, once she has been on the Naprosyn. We also discussed, at that point advancing to methotrexate, and then Remicade as needed. Most of this 60- minute visit involved discussion regarding the above. She had some baseline labs drawn today. Signed by Nuvia Patrick MD 04/28/2006 14:31 DARR[facility] Albaivision of Pediatric RheumatologyNuvia Patrick MD Nuvia Patrick MD Division of Pediatric Rheumatology - Nuvia Patrick MD P - O8 Job ID: [id number] Document ID: [id number] cc: MD Freeman Eubanks MD documented in this encounter Plan of Treatment Not on file documented as of this encounter Visit Diagnoses Not on filedocumented in this encounter
--- OUTSIDE RECORDS SUMMARY | 2024-08-21 14:11 | XMS_ITS | Encounter Summary ---
Author Organization [facility] Address [address] [place] [address] Care Team Providers Care Regional Forester Name Role Phone Santosh Saldivar MD Primary Care Provider [phone] Reason for Visit * Reason Onset Date Comments Back Pain 09/07/2014 Review Treatment Options 09/07/2014 Appointment Related 09/07/2014 Encounter Details Date Type Department Care Team (Late st Contact Info) Description 09/07/2014 Telephone [facility] Pediatric Rheumatology - [address] [phone] Nuvia Patrick MD [address] [place] [address],[address] [place] [address] Back Pain; Review Treatment Options; Appointment Related Social History Tobacco Use Types [...] encounter Miscellaneous Notes * Telephone Encounter - Nuvia Patrick - 09/21/2014 2681 EST Discussed with Mookie Saldivar, will refer to adolescent peds Dr. Nicolas ([phone] and ask to set up an appt with Dr Nicolas) when next seen in clinic for follow up for multiple medical issues. * Telephone Encounter - Sveta Smith, RN - 09/07/[address] Saldivar's call. He will fax over most recent note. He would like to connect Orlando with an adolescent/pediatrian in the local area to help coordinate care. Orlando's back pain is persistent and severe and Dr. Saldivar would like to refer her to a pain specialist to help manage and coordinate treatment for this. I told him that Orlando's appointment got moved up to 09/[address] Patrick could address and contact Dr. Saldivar then. He will email Dr. Patrick as well. * Telephone Encounter - Marco Corea - 09/07/2014 1222 EST Calling to speak with Dr. Patrick's nurse to review a few things. 1. He would like to find a adolescent provider here in the area that can see her on a more regular basis as she is in college at [employer]. Its difficult to care for her from [facility] as she has been having a lot of issues. 2. She has been having sever back pain, would like to discuss. 3. Would like to review the treatment plan and would like to have her seen sooner then .04. Please give her a call to discuss today if possible. documented in this encounter Plan of Treatment Not on file documented as of this encounter Visit Diagnoses Not on filedocumented in this encounter Care Teams Regional Forester Relationship Specialty Start Date End Date Santosh Saldivar MD [address] [place] [address] [address] [place] [address] PCP - General 04/13/14 12/18/14 documented as of this encounter
--- OUTSIDE RECORDS SUMMARY | 2024-08-21 14:11 | XMS_ITS | Encounter Summary ---
Author Organization [facility] Address [address] [place] [address] Care Team Providers Care Software Firmware Engineer Name Role Phone Unavailable Primary Care Provider Unavailabl e Encounter Details Date Type Department Care Team ([facility] st Contact Info) Description 10/01/2006 Before PRISM Converted Visit (Maple) [facility] - Maple conversion [address] [place] [address] Nuvia Patrick MD [address] [facility] [place] [address] Social History Tobacco Use Types Packs/Day Years Used Date Smoking Tobacco: Never Assessed Comments Unknown Sex and Gender Information Value Date Recorded Sex Assigned at Not on file Legal Sex Female 18:19 EST Gender Identity Not on file Sexual Orientation Not on file documented as of this encounter Progress Notes * Nuvia Patrick - 09/03/2009 0409 EST PROGRESS/FOLLOWUP NOTE - 10/01/2006 PROBLEM #2: Idiopathic uveitis. SUBJECTIVE: I am seeing Orlando in followup. I last saw her on August 18, 2006. At that point, we decided to go ahead and start methotrexate 25 mg subcutaneous weekly. It sounds like she has had someabdominal symptoms after methotrexate injections.The most notable one occurred after the September 10, 2006 injection when she developed 1 week to 10 days of significant abdominal pain. She was evaluated for possible appendicitis by Dr. Aldridge. She had liver function tests done, which reportedly were normal. No etiology of these symptoms was found. It was decided to hold the methotrexate at that point in time. It sounds like her symptoms have improved, especially in the past few days; however, I am having difficulty getting the parents to say she is totally asymptomatic currently. It sounds likeshe has not had abdominal pain prior to starting the methotrexate. She has had no vomiting or diarrhea with this. It sounds like her appetite has been a bit down. She has had no rash or fever. No other familymembers have been sick. She did miss about one week of school. Again, the exact etiology ofthese symptoms was unclear. They are here today for followup. They want to know whether it is reasonable to go ahead and restart the methotrexate. They saw recently, and her eyes were clear on six drops per day, and they were reduced to four drops per day in both eyes. They have a lot of questions about possible etiology for her pain, as well as expected course of treatment. OBJECTIVE: On examination, Orlando looks well. HEENT examination, heart, lungs, and abdomen are benign. I did not appreciate any organomegaly. ASSESSMENT: At this time, is unclear etiology of gastrointestinal symptoms. I suppose methotrexate might be related to these pains, however, they have persisted despite stopping the methotrexate. Oneetiology could be ulcerative lesions in the gastrointestinal tract. She has no blood noted, but a stool hemoccult has not been done. PLAN: 1. I do think it is reasonable to restart the methotrexate with the understanding that if she develops symptoms again it may very well be the drug. I also recommended getting some stool hemoccults. She has been on Zantac, which her parents do not think has helped at all, and they seem to want to discontinue it, which I felt was okay. Certainly, if her symptoms worsen, they can restart it. She does have a history of reflux in the past. Possible use of remicade as an alternative was discussed. 2. I will also discuss with Dr. Aldridge, and they should stop the methotrexate, and get in touch witheither myself or Dr. Aldridge, should symptoms worsen or recur. 3.talked about possible use of Zofran, but in light of the fact that she was not really nauseous, or had abdominal pain, we elected not to go ahead with that. The majority of this 40- minute visit involved discussion regarding the above. Signed by Nuvia Patrick MD 10/06/2006 12:18 Greg Patrick [facility] Bransonision of Pediatric RheumatologyNuvia Patrick MD Nuvia Patrick MD Division of Pediatric Rheumatology - [place] Patrick MD P - O1 Job ID: [id number] Document ID: [id number] cc: MD Skylar Eubanks MD Mark Price, MD documented in this encounter Plan of Treatment Not on file documented as of this encounter Visit Diagnoses Not on filedocumented in this encounter
--- OUTSIDE RECORDS SUMMARY | 2024-08-21 14:11 | XMS_ITS | Encounter Summary ---
Author Organization [facility] Address [address] [place] [address] Care Team Providers Care Medical Insurance Biller Name Role Phone Santosh Saldivar MD Primary Care Provider [phone] Reason for Visit * Reason Onset Date Comments Appointment Related 06/26/2014 Pt went to E R and appointment made w/ 06.25.2014 pt NOS. calling to see if she still needs to be seen? Encounter Details Date Type Department Care Team (Late st Contact Info) Description 06/26/2014 Telephone [facility] Ophthalmology - Main [address] [address] Jose Anderson MD [address] [place] [address] [address] [place] [address] Appointment Related (Pt went to ER and appointment made w/ 06.25.2014 pt NOS. calling to see if she still needs to be seen?) Social History Tobacco Use Types Packs/Day Years [...] encounter Miscellaneous Notes * Telephone Encounter - Azucena Ferreira - 06/26/2014 1045 EDT I called pt and she said she was not aware of her appointment w/ on 06.25.2014 I asked if she still needed to be seen, she stated she already made an appointment this week for the on-call Opthalmologist at [facility]. documented in this encounter Plan of Treatment Not on file documented as of this encounter Visit Diagnoses Not on filedocumented in this encounter Care Teams Medical Insurance Biller Relationship Specialty Start Date End Date Santosh Saldivar MD [address] [facility] [place] [address] PCP - General 04/13/14 12/18/14 documented as of this encounter
--- OUTSIDE RECORDS SUMMARY | 2024-08-21 14:11 | XMS_ITS | Encounter Summary ---
Author Organization [facility] Address [address] [place] [address] Care Team Providers Care Home Theater Specialist Name Role Phone Freeman Herrera MD Primary Care Provider Patsy devi Reason for Visit * Reason Onset Date Comments Referral Request 04/02/2014 parent would li ke to know if her daughter who used to see dr. Patrick at [facility] could see her again; Encounter Details Date Type Department Care Team (Late st Contact Info) Description 04/02/2014 Telephone [facility] Pediatric Rheumatology - Main [address] [phone] uNvia Patrick MD [address] [place] [address],[address] [place] [address] Referral Request (parent would like to know if her daughter who used to see dr. Patrick at [facility] could see her again;) Social History Tobacco Use Types Packs/Day Years [...] encounter Miscellaneous Notes * Telephone Encounter - Livier Mejias - 04/03/2014 0952 EDT Booked for 04.13.14 @ 1 PM -- with Nuvia Patrick, seen years ago. Notes to be faxed to main number * Telephone Encounter - Livier Mejias - 04/02/2014 1236 EDT Orlando's mother called to state her daughter was a patient of Dr. Nuvia Patrick at [facility], years ago, she is wondering whether she would still see her. I mentioned that we do have an adult Rheumatology clinic, but since this is Dr. Nuiva Patrick's decision, we would call her back with her answer. documented in this encounter Plan of Treatment Not on file documented as of this encounter Visit Diagnoses Not on filedocumented in this encounter Care Teams Home Theater Specialist Relationship Specialty Start Date End Date Freeman Herrera MD PCP - General 01/23/12 04/12/14 documented as of this encounter
--- OUTSIDE RECORDS SUMMARY | 2024-08-21 14:11 | XMS_ITS | Encounter Summary ---
Author Organization [facility] Address [address] [place] [address] Care Team Providers Care Java Systems Analyst Name Role Phone Unavailable Primary Care Provider Unavailabl e Encounter Details Date Type Department Care Team ([facility] st Contact Info) Description 11/05/2006 Before PRISM Converted Visit (Maple) [facility] - Maple conversion [address] [place] [address] Nuvia Patrick MD [address] [facility] [place] [address] Social History Tobacco Use Types Packs/Day Years Used Date Smoking Tobacco: Never Assessed Comments Unknown Sex and Gender Information Value Date Recorded Sex Assigned at Not on file Legal Sex Female 18:19 EST Gender Identity Not on file Sexual Orientation Not on file documented as of this encounter Progress Notes * Nuvia Patrick - 07/03/2009 0314 EST PROGRESS/FOLLOWUP NOTE - 11/05/2006 PROBLEM 2. Idiopathic uveitis. SUBJECTIVE: Orlando is seen in followup. She is here with both her parents. She has been on methotrexate 25 mg subcu weekly with no significant gastrointestinal complaints which were so problematic when I last sawher. She has had a recent tuberculosis test which was negative. She has been seen by Dr. Franklin and apparently her one eye had flared on tapering her steroid drops. She has developed increased intraocular pressure and an early cataract. The feeling is that Remicade is likely indicated in light of the steroid toxicity she is experiencing in treating her uveitis. Parents are here to discuss this. They also are interested in possibly getting the infusions done at [facility] it is closer to them. It sounds like she is due to have labs soon as well. She is also due forher methotrexate injection today but has been tolerating it well. She has also been complaining of some back pain and I reviewed this with them. It sounds like it isfairly intermittent and she has no other significant symptoms such as morning stiffness, pain with urination, or any significant history of injury. Mom has done quite a bit of reading about Remicade; dad had some questions about it. She has had a tonsillectomy in hopes of reducing her uveitis as it seemed to be strep associated but that was not successful. OBJECTIVE On exam today Orlando looks well. Eyes were not examined. Palate is clear. Heart, lungs, and abdomen are benign. C-spine motion is full. All joints range well with no pain on range or swelling noted. Back is straight. She has no pain on hyperextension of the back or flexion. She has no SI joint tenderness. Gait is normal. Her weight is 41.8 kg, height 147.8 cm, blood pressure 107/58. ASSESSMENT Benign exam with history of idiopathic uveitis, not at this point well- controlled with methotrexateand experiencing some topical steroid toxicity in the form of cataracts and increased intraocular pressure. PLAN We will arrange to start Remicade at a dose of about 5 mg/kg per infusion given at zero, two, and six weeks and monitor her response. I suggested that Dr. Franklin perhaps try to taper the steroid dropsa bit after two infusions of Remicade. He and I will keep in close contact as to the need for increasing the dose of Remicade up to a total of 10 per kg and also the possibility of spacing out the infusions depending on her response. The majority of this 40-minute visit involved discussion regarding the above. Signed by Nuvia Patrick MD 11/17/2006 07:38 Greg Patrick, [facility]ENTER[facility]ision of Pediatric RheumatologyBennie Thomas, MDDivision of Pediatric Rheumatology Nuvia Patrick MD Division of Pediatric Rheumatology - Nuvia Patrick MD A - adi Job ID: [id number] Document ID: [id number] cc: MD Foreign Thomas MD Karyn M Patno, MD Mark Price, MD documented in this encounter Plan of Treatment Not on file documented as of this encounter Visit Diagnoses Not on filedocumented in this encounter
--- OUTSIDE RECORDS SUMMARY | 2024-08-21 14:11 | XMS_ITS | Clinical Summary ---
Author Organization [facility] [place] [address] Care Team Providers Care Nurse'S Aides Teacher Name Role Phone Irma Mcbride MD Primary Care Provider [phone] Allergies Active Allergy Reactions Criticality Noted Date Comments Clindamycin Hives Medium Penicillins Nausea And Vomiting Medications Medication Sig Dispensed Refills Start Date End Date Status tacrolimus (PROTOPIC) 0.1 % ointment 08/06/2010 Active inFLIXimab (REMICADE) 100 mg injectionIndications: JRA (juvenile rheumatoid arthritis) Inject 40 mLs into the vein every 28 days. 1 each 6 02/08/2013 Active folic acid (FOLVITE) 1 mg tabletIndications:JRA (juvenile rheumatoid arthritis) Take 1 tablet by mouth daily. 30 tablet 5 02/08/2013 Active NORETHINDRONE A-E ESTRADIOL (MICROGESTIN 1/20, 21, ORAL) daily. 09/11/2013 Active methotrexate 2.5 mg tabletIndications:Uve itis Take 6 tablets by mouth once a week. When stomach is empty, 2 hours after eating and do not eat for 1 hour. 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 Diagnoses and associated orders for this visit: Spondylolysis of lumbar region - REFERRAL TO PHYSICAL THERAPY Will attend to core strengthening and peripelvic flexibility pending imaging results. Uveitis 01/16/2011 Immunizations Name Administration Dates Next Due Hepatitis A, Unspecified Formulation 11/03/2012 Influenza Trivalent w/Preservative 11/03/2012 Influenza Vaccine, Whole 08/06/2010 Social History Tobacco Use Types Packs/Day Years Used Date Smoking Tobacco: Never Smokeless Tobacco: Never Alcohol Use Standard Drinks/Week Comments No 0 (1 standard drink = 0.6 oz pur e alcohol) Sex and Gender Information Value Date Recorded Sex Assigned at Not on file Gender Identity Not on file Sexual Orientation Not on file Last Filed Vital Signs Vital Sign Reading Time Taken Comments Blood Pressure 100/62 11/16/2013 1:17 PM EDT Pulse 56 11/16/2013 1:17 PM EDT Temperature 36.9 ??C (98.4 ??F) 11/16/2013 1:17 PM ED T Respiratory Rate 14 02/15/2013 10:40 AM EDT Oxygen Saturation 100% 11/16/2013 1:17 PM EDT Inhaled Oxygen Concentration - - Weight 58.1 kg (128 lb) 11/16/2013 1:17 PM EDT Height 167.6 cm (5' 6) 11/16/2013 1:17 PM EDT Body Mass Index 20.66 11/16/2013 1:17 PM EDT Plan of Treatment Health Maintenance Due Date Last Done Comments HIV screen 02/25/2014 Hepatitis C Screening 02/25/2014 Hepatitis B vaccine (0-59 yrs) (1) 02/25/2015 Tetanus/Diphtheria/Pertussis Vaccines (1 - Tdap) 02/25/2015 PAP Smear 02/25/2017 Covid-19 Vaccine ( - season) 2024 Influenza (Flu) vaccine (1 o f 1 - Influenza standard series) 04/30/2024 11/03/2012, 08/06/2010 Care Teams Nurse'S Aides Teacher Relationship Specialty Start Date End Date Irma Mcbride MD PCP - General Family Medicine 07/09/21
--- OUTSIDE RECORDS SUMMARY | 2024-08-21 14:11 | XMS_ITS | Encounter Summary ---
Author Organization [facility] Address [address] [place] [address] Care Team Providers Care Speech Language Pathologist Prn Name Role Phone Santosh Saldivar MD Primary Care Provider [phone] Reason for Visit * Reason Onset Date Comments Other 05/28/2014 Encounter Details Date Type Department Care Team ([facility] st Contact Info) Description 05/28/2014 Telephone [facility] Pediatric Rheumatology - [address] [address] Tamie Barnard, RN Other Social History Tobacco Use Types Packs/Day [...] Miscellaneous Notes * Telephone Encounter - Tamie Barnard RN - 05/30/2014 1301 EDT Called Orlando and relayed that her Monospot was negative. She said she is starting to feel better. Itold her that as long as she doesn't have a fever on Wednesday morning, she should come to her appt. * Telephone Encounter - Tamie Barnard RN - 05/28/2014 1517 EDT 1519 spoke to Orlando. She has a fever, swollen glands, and a rash. She was able to get an order for labs which she will get done today. I told her to call when the results are back to determine what to do for appt on Wednesday. * Telephone Encounter - Tamie Barnard RN - 05/28/2014 9576 EDT [phone] Orlando called the [facility] and left a message stating that she is a student at [employer] and went to the [facility] on Wednesday, and they suggested based on her sx that she be tested for mono,but they couldn't do the blood work. Orlando wanted to make sure this was done before her Remicaid infusion on Wednesday. I tried to call her back to find out if the [facility] could write her an order, but her voicemail hasn't been set up. I will try back again. documented in this encounter Plan of Treatment Not on file documented as of this encounter Visit Diagnoses Not on filedocumented in this encounter Care Teams Speech Language Pathologist Prn Relationship Specialty Start Date End Date Santosh Saldivar MD [address] [place] [address] PCP - General 04/13/14 12/18/14 documented as of this encounter
--- OUTSIDE RECORDS SUMMARY | 2024-08-21 14:11 | XMS_ITS | Encounter Summary ---
Author Organization [facility] Address [address] [place] [address] Care Team Providers Care Manager Drug Name Role Phone Unavailable Primary Care Provider Unavailabl e Encounter Details Date Type Department Care Team (Latest Contact Info) Description 07/31/2005 7:54 EST - 07/31/2005 11:59 EST Hospital Encounter [facility] [address] [place] [address] Nuvia Patrick MD [address] [place] [address] Discharge Disposition: Auto Discharge Social History Tobacco [...] Procedure Name Priority Date/Time Associated Diagnosis Comments PROTEIN, TOTAL, RANDOM, URINE Routine 07/31/2005 11:36 EST CREATININE, URINE RANDOM Routine 07/31/2005 11:36 EST URINE CHEMICAL (DIP) & SEDIMENT (MICRO) WITHOUT REFLEX TO CULTURE Routine 07/31/2005 11:36 EST documented in this encounter Results * TOTAL PROTEIN,URINE RANDOM (07/31/2005 11:36 EST) Tot Prot,Ur Random 32 mg/dl [facility] 07/31/2005 11:3 6 EST 07/31/2005 11:39 EST us Nuvia Patrick MD URINALYSIS ORDERABLES Final Result Performing Organization Address [facility] Co de Phone Number [facility] [address] [place] [address] * CREATININE, URINE RANDOM (07/31/2005 11:36 EST) Creatinine, Urn [place] 56.5 mg/dl [facility] 07/31/2005 11:3 6 EST 07/31/2005 11:39 EST us Nuvia Patrick MD URINALYSIS ORDERABLES Final Result Performing Organization Address [facility] de Phone Number [facility] [address] [place] [address] * (ABNORMAL) UA WITH MICROSCOPIC (07/31/2005 11:36 EST) Color, UA Yellow [facility] Clarity, UA Hazy [facility] Glucose, UA Norm NORM [facility] Bilirubin, UA Neg NEG [facility] Ketones, UA Neg NEG [facility] Specific [place], Urine 1.020 1.005 - 1.02 [facility] Blood, UA Neg NEG [facility] pH, UA 7.5 5.0 - 9.0 [facility] Protein, UA Trace(A) NEG [facility] Urobilinogen, UA Norm NORM mg/dL [facility] Nitrite, UA Neg NEG [facility] Leuk Esterase Neg NEG [facility] WBC, UA less than 1 0 - 5 /HPF [facility] RBC, UA less than 1 0 - 5 /HPF [facility] Squam Epithel, UA None seen NS /HPF [facility] Renal Epithel, UA None seen NS /HPF [facility] Bacteria, UA None seen NS /HPF [facility] Crystals, UA None seen /HPF [facility] Hyaline Casts, UA None seen /LPF [facility] UA Comment Microscopic results are unreliable on urines unrefrig >2hrs or refrig >8hrs. [facility] Additional Findings Amorphous material present [facility] 07/31/2005 11:3 6 EST 07/31/2005 11:40 EST us Nuvia Patrick MD URINALYSIS ORDERABLES Final Result [facility] [address] [place] [address] documented in this encounter Visit Diagnoses Not on filedocumented in this encounter
--- OUTSIDE RECORDS SUMMARY | 2024-08-21 14:11 | XMS_ITS | Encounter Summary ---
Author Organization [facility] Address [address] [place] [address] Care Team Providers Care President Financial Institution Name Role Phone Santosh Saldivar MD Primary Care Provider [phone] Reason for Visit * Reason Comments Infusion Patient arrived for Remicade infusion. Encounter Details Date Type Department Care Team ([facility] st Contact Info) Description 07/04/2014 11:00 EST Nurse Only [facility] - [address] [address] Unknown, Provider, Nuvia Macias MD [address] [place] [address],[address] [place], [place] [id number] Infusion, [place] B Uveitis (Primary Dx) Discharge Disposition: Auto Discharge [...] Sign Reading Time Taken Comments Blood Pressure 98/48 07/04/2014 1220 EST Pulse - - Temperature - - Respiratory Rate - - Oxygen Saturation - - Inhaled Oxygen Concentration - - Weight 55.3 kg (121 lb 14.6 oz) 07/04/2014 1000 EST Height - - Body Mass Index 19.83 06/25/2014 1517 EDT Body Mass Index Percentile 28.97% 07/04/2014 100 0 EST Growth Chart: [facility] (Girls, 2- 20 Years) documented in this encounter Discharge Diagnoses Diagnosis 364.3 IRIDOCYCLITIS NOS[ICD-9-CM] V58.69 AFTERCARE DRY TRANSFER MAN USE MEDICATN[ICD-9-CM] documented in this encounter Discharge Disposition Disposition Code Departure Means Destination Auto Discharge documented in this encounter Progress Notes * Alona Ayala RN - 07/04/2014 1159 EST I was supervised by Nuvia Patrick who was present and immediately available in the office suite. ALONA AYALA RN 07/04/2014 11:59 Patient arrived for REmicade infusion. Wanted hand PIV, tried and was not successful. A/C is much better access. Tolerated infusion with no concerns. Discharged home on her own with no concerns. documented in this encounter Plan of Treatment Not on file documented as of this encounter Procedures Procedure Name Priority Date/Time Associated Diagnosis Comments DIFFERENTIAL Routine 07/04/2014 10:35 EST Uveitis SED RATE Routine 07/04/2014 10:35 EST Uveitis COMPLETE BLOOD COUNT Routine 07/04/2014 10:35 EST Uveitis COMPLETE BLOOD COUNT AND DIFFERENTIAL Routine 07/04/2014 10:35 EST Uveitis C REACTIVE PROTEIN Routine 07/04/2014 10 :35 EST Uveitis COMPREHENSIVE METABOLIC PANEL (CMP) Routine 07/04/2014 10:35 EST Uveitis documented in this encounter Results * (ABNORMAL) DIFFERENTIAL (07/04/2014 10:35 EST) % Neutrophils 68.8 45.5 - 79.7 % [facility] % Lymphocytes 24.4 15.0 - 46.8 % [facility] % Monocytes 4.8 1.8 - 12.0 % [facility] % Eosinophils 1.0 0.6 - 6.9 % [facility] % Basophils 1.0 0.2 - 1.4 % [facility] ABS Neutrophils 8.54 2.20 - 8.85 K/cmm [facility] ABS Lymphs 3.02 1.09 - 3.30 K/cmm [facility] ABS Monocytes 0.59 0.1 - 0.8 K/cmm [facility] ABS Eosinophils 0.12 0.03 - 0.61 K/cmm [facility] ABS Basophils 0.12(H) 0.01 - 0.11 K/cmm [facility] Type of Diff: Automated [facility] 07/04/2014 10:3 5 EST 07/04/2014 11:44 EST us Nuvia Patrick MD HEMATOLOGY & PF4 ORDERABLES Final Result Performing Organization Address City/[facility] de Phone Number [facility] [address] [place] [address] * (ABNORMAL) HEMAGRAM (07/04/2014 10:35 EST) WBC 12.40 4.0 - 12.4 K/cmm [facility] RBC 3.90 3.86 - 5.04 M/cmm [facility] Hemoglobin 12.1 11.6 - 15.2 gm/dl [facility] HCT 34.6(L) 34.9 - 44.4 % [facility] MCV 89 81 - 98 fl [facility] MCH 31.0 26.7 - 33.3 pg [facility] MCHC 35.0 32.1 - 35.9 gm/dl [facility] PLT 402(H) 141 - 320 K/cmm [facility] RDW-CV 12.7 11.7 - 14.6 % [facility] 07/04/2014 10:3 5 EST 07/04/2014 11:44 EST Nuvia Patrick MD HEMATOLOGY & PF4 ORDERABLES Final Result [facility] [address] [place] [address] * (ABNORMAL) COMPREHENSIVE METABOLIC PANEL (CMP) (07/04/2014 10:35 EST) Potassium 4.6 3.5 - 5.0 mEq/L [facility] Comment: Slight hemolysis Hemolysis may elevate potassium result. Sodium 137 136 - 145 mEq/L [facility] Comment:Slight hemolysis Chloride 101 96 - 110 mEq/L [facility] Comment:Slight hemolysis CO2 24 24 - 32 mEq/L [facility] Comment:Slight hemolysis Total Alkaline Phosphatase 51 38 - 126 U/L [facility] Comment: Slight hemolysis Hemolysis will decrease ALKP result Suggest re-evaluation if clinically indicated Bilirubin, Total <0.5 <1.4 mg/dl [facility] Comment: Slight hemolysis Results may be affected due to hemolysis. AST 56(H) 15 - 46 U/L [facility] Comment: Slight hemolysis Results may be affected due to hemolysis. ALT 53(H) <53 U/L [facility] Comment: Slight hemolysis Results may be affected due to hemolysis. Albumin 4.0 3.4 - 4.9 g/dl [facility] Comment: Slight hemolysis Results may be affected due to hemolysis. Total Protein 7.7 6.5 - 8.3 g/dl [facility] Comment: Slight hemolysis Results may be affected due to hemolysis. Creatinine 0.50(L) 0.52 - 1.04 mg/dl [facility] Comment:Slight hemolysis GFR, Calculated >60 >60 ml/min/1.7 3m2 [facility] BUN 9(L) 10 - 26 mg/dl [facility] Comment: Slight hemolysis Results may be affected due to hemolysis. Calcium 9.1 8.5 - 10.5 mg/dl [facility] Comment:Slight hemolysis Calculated Calcium 9.5 8.5 - 10.5 mg/dl [facility] Glucose, Serum 80 70 - 100 mg/dl [facility] Comment: Slight hemolysis Results may be affected due to hemolysis. Fasting? Unknown [facility] Blood specimen (specimen) 07/04/2014 10:35 EST 07/04/2014 11:44 EST us Nuvia Patrick MD CHEMISTRY & BLOOD GAS ORDER GEORGINA Final Result Performing Organization Address [facility] Co de Phone Number [facility] [address] [place] [address] * C-REACTIVE PROTEIN (07/04/2014 10:35 EST) C-Reactive Protein <0.7 <1.0 mg/dl [facility] Comment: Slight hemolysis Results may be affected due to hemolysis. Blood specimen (specimen) 07/04/2014 10:35 EST 07/04/2014 11:44 EST us Nuvia Patrick MD CHEMISTRY & BLOOD GAS ORDER GEORGINA Final Result Performing Organization Address [facility] Phone Number [facility] [address] [place] [address] * SED. RATE:WESTERGREN (07/04/2014 10:35 EST) Pathologist [facility] Sed. Rate Westergren 17 0 - 20 mm/hr [facility] Blood specimen (specimen) 07/04/2014 10:35 EST 07/04/2014 11:44 EST us Nuvia Patrick MD HEMATOLOGY & PF4 ORDERABLES Final Result Performing Organization Address [facility] de Phone Number [facility] [address] [place] [address] documented in this encounter Visit Diagnoses Diagnosis Uveitis- Primary Unspecified iridocyclitis documented in this encounter Administered Medications Inactive Administered Medications - up to 3 most recent administrations Medication Order MAR Action Action Date Dose Rate Site acetaminophen (TYLENOL) tablet 487.5-812.5 mg 487.5-812.5 mg (10-15 mg/kg ? 55.3 kg), oral, NOW X1, 1 dose, On Wed07/04/14 at 1100, RoutineIndications:Uveitis Given 07/04/2014 11:40 EST 650 mg inFLIXimab (REMICADE) 300 mg in sodium chloride (NS) 0.9 % 250 mL IVPB 300 mg, intravenous, Administer over 120 Minutes, CONTINUOUS ONE TIME INFUSION, Starting on Wed07/04/14 at 1100, Until Wed07/04/14 at 1715, RoutineIndications:Uveitis Rate Change 07/04/2014 13:30 EST 300 mg 325 mL /hr Rate Change 07/04/2014 13:15 EST 300 mg 300 mL/hr Rate Change 07/04/2014 12:55 EST 300 mg 250 mL/hr documented in this encounter Orders Medications Ordered That Gus ht Not Have Been Administered Count Last Ordered Date First Ordered Date diphenhydrAMINE (BENADRYL) c apsule 25-50 mg 1 07/04/2014 EPINEPHrine (ADRENALIN) injection 0.5 mg 1 07/04/2014 methylPREDNISolone sod suc(P F) (SOLU-MEDROL) 40 mg/mL injection 40 mg 1 07/04/2014 documented in this encounter Care Teams President Financial Institution Relationship Specialty Start Date End Date Santosh Saldivar [place] [address] PCP - General 04/13/14 12/18/14 documented as of this encounter
--- OUTSIDE RECORDS SUMMARY | 2024-08-21 14:11 | XMS_ITS | Encounter Summary ---
Author Organization [facility] Address [address] [place] [address] Care Team Providers Care Museum Preparator Name Role Phone Santosh Saldivar MD Primary Care Provider [phone] Encounter Details Date Type Department Care Team ([facility] st Contact Info) Description 09/25/2014 11:46 EST - 09/25/2014 11:47 EST Hospital Encounter [address] [address] Katrina Martinez, BEACH EXPERT [address] [place] [phone] Discharge Disposition: Home or Self Care Social [...] on filedocumented in this encounter Care Teams Museum Preparator Relationship Specialty Start Date End Date Santosh Saldivar MD [address] [place] [address] PCP - General 04/13/14 12/18/14 documented as of this encounter
--- OUTSIDE RECORDS SUMMARY | 2024-08-21 14:11 | XMS_ITS | Encounter Summary ---
Author Organization [facility] Address [address] [place] [address] Care Team Providers Care Supervisor Tile And Mottle Name Role Phone Santosh Saldivar MD Primary Care Provider [phone] Reason for Visit * Reason Comments Infusion Patient arrived for Remicade infusion. Encounter Details Date Type Department Care Team ([facility] st Contact Info) Description 08/15/2014 11:00 EST Nurse Only [facility] - [address] [address] Unknown, Provider, Nuvia Macias MD [address] [place] [address],[address] [place], [place] [id number] Infusion, Eulalio Dumont MD Uveitis (Primary Dx) [...] Sign Reading Time Taken Comments Blood Pressure 152/46 08/15/2014 1414 EST right leg patient sleeping Pulse 65 08/15/2014 1414 EST Temperature 36.2 ??C (97.2 ??F) 08/15/2014 1 414 EST Respiratory Rate - - Oxygen Saturation - - Inhaled Oxygen Concentration - - Weight 56.1 kg (123 lb 10.9 oz) 08/15/2014 1000 EST Height - - Body Mass Index 20.07 07/04/2014 1115 EST Body Mass Index Percentile 31.90% 08/15 1000 EST Growth Chart: [facility] (Girls, 2- 20 Years) documented in this encounter Discharge Diagnoses Diagnosis 364.3 IRIDOCYCLITIS NOS[ICD-9-CM] documented in this encounter Discharge Disposition Disposition Code Departure Means Destination Auto Discharge documented in this encounter Progress Notes * Alona Ayala RN - 08/15/2014 1342 EST I was supervised by Nuvia Patrick who was present and immediately available in the office suite. ALONA AYALA RN 08/15/2014 13:42 Patient arrived for Remicade infusion. Patient was given Tylenol 650mL and Benadryl 25mg as pre-medper Dr Patrick., please continue pre-meds for future infusions. documented in this encounter Plan of Treatment Not on file documented as of this encounter Procedures Procedure Name Priority Date/Time Associated Diagnosis Comments SED RATE Routine 08/15/2014 10:15 EST Uveitis COMPLETE BLOOD COUNT AND DIFFERENTIAL Routine 08/15/2014 10:15 EST Uveitis C REACTIVE PROTEIN Routine 08/15/2014 10 :15 EST Uveitis COMPREHENSIVE METABOLIC PANEL (CMP) Routine 08/15/2014 10:15 EST Uveitis documented in this encounter Results * (ABNORMAL) COMPREHENSIVE METABOLIC PANEL (CMP) (08/15/2014 10:15 EST) Potassium 4.1 3.5 - 5.0 mEq/L 08/15/2014 13:35 [facility] Sodium 138 136 - 145 mEq/L 08/15/2014 13:35 [facility] Chloride 100 96 - 110 mEq/L 08/15/2014 13:35 [facility] CO2 27 24 - 32 mEq/L 08/15/2014 13:35 [facility] Total Alkaline Phosphatase 62 38 - 126 U/L 08/15/2014 13:35 [facility] Bilirubin, Total <0.5 <1.4 mg/dl 08/15/20 14 13:35 [facility] AST 30 15 - 46 U/L 08/15/2014 13:35 [facility] ALT 29 <53 U/L 08/15/2014 13:35 [facility] Albumin 4.6 3.4 - 4.9 g/dl 08/15/2014 13:35 [facility] Total Protein 7.9 6.5 - 8.3 g/dl 08/15/2014 13:35 [facility] Creatinine 0.60 0.52 - 1.04 mg/dl 08/15/2014 13:35 [facility] GFR, Calculated >60 >60 ml/min/1.7 3m2 08/15/2014 13:35 [facility] BUN 9(L) 10 - 26 mg/dl 08/15/2014 13:35 [facility] Calcium 9.6 8.5 - 10.5 mg/dl 08/15/2014 13:35 [facility] Calculated Calcium 9.4 8.5 - 10.5 mg/dl 08/15/2014 13:35 [facility] Glucose, Serum 86 70 - 100 mg/dl 08/15/2014 13:35 [facility] Fasting? Unknown 08/15/2014 13:00 [facility] Blood specimen (specimen) BLOOD SPECIMEN / Unknown 08/15/2014 10:15 EST 08/15/2014 13:00 EST us Nuvia Patrick MD CHEMISTRY & BLOOD GAS ORDER GEORGINA Final Result [facility] [address] [place] [address] * (ABNORMAL) C-REACTIVE PROTEIN (08/15/2014 10:15 EST) C-Reactive Protein 2.9(H) <1.0 mg/dl 08/15/2014 13:35 [facility] Blood specimen (specimen) BLOOD SPECIMEN / Unknown 08/15/2014 10:15 EST 08/15/2014 13:00 EST us Nuvia Patrick MD CHEMISTRY & BLOOD GAS ORDER GEORGINA Final Result Performing Organization Address [facility] Co de Phone Number [facility] [address] [place] [address] * (ABNORMAL) SED. RATE:WESTERGREN (08/15/2014 10:15 EST) Sed. Rate Westergren 25(H) 0 - 20 mm/hr 08/15/2014 13:13 [facility] Blood specimen (specimen) BLOOD SPECIMEN / Unknown 08/15/2014 10:15 EST 08/15/2014 13:00 EST us Nuvia Patrick MD HEMATOLOGY & PF4 ORDERABLES Final Result Performing Organization Address City/[facility] Co de Phone Number [facility] [address] [place] [address] * (ABNORMAL) HEMAGRAM AND DIFFERENTIAL (08/15/2014 10:15 EST) WBC 10.32 4.0 - 12.4 K/cmm 08/15/2014 13:07 [facility] RBC 4.25 3.86 - 5.04 M/cmm 08/15/2014 13:07 [facility] Hemoglobin 13.1 11.6 - 15.2 gm/dl 08/15/2014 13:07 [facility] HCT 38.3 34.9 - 44.4 % 08/15/2014 13:07 [facility] MCV 90 81 - 98 fl 08/15/2014 13:07 [facility] MCH 30.8 26.7 - 33.3 pg 08/15/2014 13:07 [facility] MCHC 34.2 32.1 - 35.9 gm/dl 08/15/2014 13:07 [facility] PLT 403(H) 141 - 320 K/cmm 08/15/2014 13:07 [facility] RDW-CV 12.8 11.7 - 14.6 % 08/15/2014 13:07 [facility] % Neutrophils 62.5 45.5 - 79.7 % 08/15/2014 13:07 [facility] % Lymphocytes 29.8 15.0 - 46.8 % 08/15/2014 13:07 [facility] % Monocytes 5.5 1.8 - 12.0 % 08/15/2014 13:07 [facility] % Eosinophils 1.5 0.6 - 6.9 % 08/15/2014 13:07 [facility] % Basophils 0.7 0.2 - 1.4 % 08/15/2014 13:07 [facility] ABS Neutrophils 6.46 2.20 - 8.85 K/cmm 08/15/2014 13:07 [facility] ABS Lymphs 3.07 1.09 - 3.30 K/cmm 08/15/2014 13:07 [facility] ABS Monocytes 0.57 0.1 - 0.8 K/cmm 08/15/2014 13:07 [facility] ABS Eosinophils 0.15 0.03 - 0.61 K/cmm 08/15/2014 13:07 [facility] ABS Basophils 0.07 0.01 - 0.11 K/cmm 08/15/2014 13:07 [facility] Type of Diff: Automated 08/15/2014 13:07 [facility] Blood specimen (specimen) BLOOD SPECIMEN / Unknown 08/15/2014 10:15 EST 08/15/2014 13:00 EST us Nuvia Patrick MD PACKAGES & DNA PROBE ORDERA BLES Final Result [facility] [address] [place] [address] documented in this encounter Visit Diagnoses Diagnosis Uveitis- Primary Unspecified iridocyclitis documented in this encounter Administered Medications Inactive Administered Medications - up to 3 most recent administrations Medication Order MAR Action Action Date Dose Rate Site acetaminophen (TYLENOL) tablet 650 mg 650 mg, oral, NOW X1, 1 dose, On Wed08/15/14 at 1045, RoutineIndications:Uveitis Given 08/15/2014 13:39 EST 650 mg diphenhydrAMINE (BENADRYL) capsule 25-50 mg 25-50 mg, oral, ONCE PRN, 1 dose, Starting on Wed08/15/14 at 1014, Until Wed08/15/14 at 1339, Pre-medication and/or infusion reaction, RoutineIndications:Uveitis Given 08/15/2014 13:39 EST 25 mg inFLIXimab (REMICADE) 300 mg in sodium chloride (NS) 0.9 % 250 mL IVPB 300 mg, intravenous, Administer over 120 Minutes, NOW X1, 1 dose, On Wed08/15/14 at 1030, RoutineIndications:Uveitis Rate Change 08/15/2014 15:07 EST 300 mg 325 mL /hr Rate Change 08/15/2014 14:44 EST 300 mg 300 mL/hr Rate Change 08/15/2014 14:29 EST 300 mg 250 mL/hr documented in this encounter Orders Medications Ordered That Gus ht Not Have Been Administered Count Last Ordered Date First Ordered Date EPINEPHrine (ADRENALIN) injection 0.5 mg 1 08/15/2014 EPINEPHrine HCl (PF) (ADRENA ONEAL) 1 mg/mL (1:1,000) (1mL) injection 0.01 mg/kg 1 08/15/2014 methylPREDNISolone sod suc(P F) (SOLU-MEDROL) 40 mg/mL injection 40 mg 1 08/15/2014 methylPREDNISolone sodium WALLER CCINATE (SOLU-MEDROL) injection 40 mg 1 08/15/2014 documented in this encounter Care Teams Supervisor Tile And Mottle Relationship Specialty Start Date End Date Santosh Saldivar MD [address] [place], [place] [address], [place] [address] PCP - General 04/13/14 12/18/14 documented as of this encounter
--- OUTSIDE RECORDS SUMMARY | 2024-08-21 14:11 | XMS_ITS | Encounter Summary ---
Author Organization [facility] Address [address] [place] [address] Care Team Providers Care Cryptographic Clerk Name Role Phone Santosh Saldivar MD Primary Care Provider [phone] Reason for Visit * Reason Comments Infusion Encounter Details Date Type Department Care Team ([facility] Contact Info) Description 06/01/2014 8:00 EDT Nurse Only [facility] - [address] [address] Unknown, Provider, Nuvia Macias MD [address] [place] [address],[address] [place] [address] Infusion, [place] B Uveitis (Primary Dx) Social History Tobacco Use [...] Sign Reading Time Taken Comments Blood Pressure 98/52 06/01/2014 1022 EDT Pulse - - Temperature 36.5 ??C (97.7 ??F) 06/01/2014 1022 EDT Respiratory Rate - - Oxygen Saturation - - Inhaled Oxygen Concentration - - Weight 54.8 kg (120 lb 13 oz) 06/01/2014 0744 ED T Height - - Body Mass Index 19.56 05/04/2014 1256 EDT Body Mass Index Percentile 25.58% 06/01/2014 074 4 EDT Growth Chart: [facility] (Girls, 2- 20 Years) documented in this encounter Discharge Diagnoses Diagnosis 364.3 IRIDOCYCLITIS NOS[ICD-9-CM] documented in this encounter Progress Notes * Yvonne Witt, RN - 06/01/2014 1201 EDT PAtient discharged home on her own with no complications at 1100. * Radha Zhu RN - 06/01/2014 0900 EDT I was supervised by Nuvia Patrick MD MD who was present and immediately available in the office suite. Radha Zhu RN 06/01/2014 9:00 documented in this encounter Plan of Treatment Not on file documented as of this encounter Procedures Procedure Name Priority Date/Time Associated Diagnosis Comments DIFFERENTIAL Routine 06/01/2014 7:44 EDT Uveitis SED RATE Routine 06/01/2014 7:44 EDT Uveitis COMPLETE BLOOD COUNT Routine 06/01/2014 7:44 EDT Uveitis COMPLETE BLOOD COUNT AND DIFFERENTIAL Routine 06/01/2014 7:44 EDT Uveitis C REACTIVE PROTEIN Routine 06/01/2014 7: 44 EDT Uveitis COMPREHENSIVE METABOLIC PANEL (CMP) Routine 06/01/2014 7:44 EDT Uveitis documented in this encounter Results * (ABNORMAL) DIFFERENTIAL (06/01/2014 7:44 EDT) % Neutrophils 37.5(L) 45.5 - 79.7 % [facility] % Lymphocytes 50.9(H) 15.0 - 46.8 % [facility] % Monocytes 7.7 1.8 - 12.0 % [facility] % Eosinophils 3.0 0.6 - 6.9 % [facility] % Basophils 0.9 0.2 - 1.4 % [facility] ABS Neutrophils 2.48 2.20 - 8.85 K/cmm [facility] ABS Lymphs 3.38(H) 1.09 - 3.30 K/cmm [facility] ABS Monocytes 0.51 0.1 - 0.8 K/cmm [facility] ABS Eosinophils 0.20 0.03 - 0.61 K/cmm [facility] ABS Basophils 0.06 0.01 - 0.11 K/cmm [facility] Type of Diff: Automated [facility] 06/01/2014 7:44 EDT 06/01/2014 8:21 EDT us Nuvia Patrick MD HEMATOLOGY & PF4 ORDERABLES Final Result [facility] [address] [place] [address] * (ABNORMAL) HEMAGRAM (06/01/2014 7:44 EDT) WBC 6.63 4.0 - 12.4 K/cmm [facility] RBC 3.93 3.86 - 5.04 M/cmm [facility] Hemoglobin 12.3 11.6 - 15.2 gm/dl [facility] HCT 35.8 34.9 - 44.4 % [facility] MCV 91 81 - 98 fl [facility] MCH 31.2 26.7 - 33.3 pg [facility] MCHC 34.3 32.1 - 35.9 gm/dl [facility] PLT 392(H) 141 - 320 K/cmm [facility] RDW-CV 12.9 11.7 - 14.6 % [facility] 06/01/2014 7:44 EDT 06/01/2014 8:21 EDT us Nuvia Patrick MD HEMATOLOGY & PF4 ORDERABLES Final Result [facility] [address] [place] [address] * (ABNORMAL) COMPREHENSIVE METABOLIC PANEL (CMP) (06/01/2014 7:44 EDT) Pathologist [facility] Potassium 4.2 3.5 - 5.0 mEq/L [facility] Sodium 138 136 - 145 mEq/L [facility] Chloride 100 96 - 110 mEq/L [facility] CO2 26 24 - 32 mEq/L [facility] Total Alkaline Phosphatase 56 38 - 126 U/L [facility] Bilirubin, Total <0.5 <1.4 mg/dl [facility] AST 30 15 - 46 U/L [facility] ALT 21 <53 U/L [facility] Albumin 4.2 3.4 - 4.9 g/dl [facility] Total Protein 7.6 6.5 - 8.3 g/dl [facility] Creatinine 0.69 0.52 - 1.04 mg/dl [facility] GFR, Calculated >60 >60 ml/min/1.7 3m2 [facility] BUN 9(L) 10 - 26 mg/dl [facility] Calcium 9.5 8.5 - 10.5 mg/dl [facility] Calculated Calcium 9.7 8.5 - 10.5 mg/dl [facility] Glucose, Serum 80 70 - 100 mg/dl [facility] Fasting? Unknown [facility] Blood specimen (specimen) 06/01/2014 7:44 EDT 06/01/2014 8:21 EDT us Nuvia Patrick MD CHEMISTRY & BLOOD GAS ORDER GEORGINA Final Result [facility] [address] [place] [address] * C-REACTIVE PROTEIN (06/01/2014 7:44 EDT) Pathologist [facility] C-Reactive Protein <0.7 <1.0 mg/dl [facility] Blood specimen (specimen) 06/01/2014 7:44 EDT 06/01/2014 8:21 EDT us Nuvia Patrick MD CHEMISTRY & BLOOD GAS ORDER GEORGINA Final Result Performing Organization Address City/[facility]/ZIP Co de Phone Number [facility] [address] [place] [address] * SED. RATE:AYANNAERGREN (06/01/2014 7:44 EDT) Sed. Rate Westergren 14 0 - 20 mm/hr [facility] Blood specimen (specimen) 06/01/2014 7:44 EDT 06/01/2014 8:21 EDT us Nuvia Patrick MD HEMATOLOGY & PF4 ORDERABLES Final Result Performing Organization Address [facility] de Phone Number [facility] [address] [place] [address] documented in this encounter Visit Diagnoses Diagnosis Uveitis- Primary Unspecified iridocyclitis documented in this encounter Administered Medications Inactive Administered Medications - up to 3 most recent administrations Medication Order MAR Action Action Date Dose Rate Site acetaminophen (TYLENOL) tablet 650 mg 650 mg, oral, NOW X1, 1 dose, On Wed06/01/14 at 0800, RoutineIndications:Uveitis Given 06/01/2014 8:50 EDT 325 mg diphenhydrAMINE (BENADRYL) capsule 25-50 mg 25-50 mg, oral, ONCE PRN, 1 dose, Starting on Wed06/01/14 at 0743, Until Wed06/01/14 at 0849, Pre-medication and/or infusion reaction, RoutineIndications:Uveitis Given 06/01/2014 8:49 EDT 25 mg inFLIXimab (REMICADE) 300 mg in sodium chloride (NS) 0.9 % 250 mL IVPB 300 mg, intravenous, Administer over 120 Minutes, CONTINUOUS ONE TIME INFUSION, Starting on Wed06/01/14 at 0800, Until Wed06/01/14 at 1417, STATIndications:Uveitis Rate Change 06/01/2014 10:38 EDT 300 mg 325 mL/hr Rate Change 06/01/2014 10:22 EDT 300 mg 300 mL/hr Rate Change 06/01/2014 10:05 EDT 300 mg 250 mL/hr documented in this encounter Orders Medications Ordered That Gus ht Not Have Been Administered Count Last Ordered Date First Ordered Date EPINEPHrine (ADRENALIN) injection 0.55 mg 1 06/01/2014 methylPREDNISolone sodium WALLER CCINATE (SOLU-MEDROL) injection 40 mg 1 06/01/2014 documented in this encounter Care Teams Cryptographic Clerk Relationship Specialty Start Date End Date Santosh Saldivar MD [address] [place] [address] PCP - General 04/13/14 12/18/14 documented as of this encounter
--- OUTSIDE RECORDS SUMMARY | 2024-08-21 14:11 | XMS_ITS | Encounter Summary ---
Author Organization [facility] Address [address] [place] [address] Care Team Providers Care Sumac Tanner Name Role Phone Santosh Saldivar MD Primary Care Provider [phone] Reason for Visit * Reason Comments Infusion Encounter Details Date Type Department Care Team ([facility] st Contact Info) Description 10/03/2014 11:00 EST Nurse Only [facility]fusion [facility] - Main [address] [address] Unknown, Provider, Infusion, Eulalio Dumont MD Uveitis (Primary Dx) Social History Tobacco [...] Sign Reading Time Taken Comments Blood Pressure 99/56 10/03/2014 1250 EST Pulse 66 10/03/2014 1250 EST Temperature 36 ??C (96.8 ??F) 10/03/2014 1250 EST Respiratory Rate - - Oxygen Saturation - - Inhaled Oxygen Concentration - - Weight - - Height - - Body Mass Index - - documented in this encounter Progress Notes * Marleny Gomez - 10/03/2014 1303 EST [facility] connected with [place] during [facility]. Orlando was offered a diversional activity to pass the time while she waited for her infusion to be complete; Orlando declined as she brought her own. [facility] will continue to provide support to Orlando and familyduring future hospital visits. Marleny Gomez, CCLS Pager:[phone] * Arabella Gabriel RN - 10/03/2014 1118 EST I was supervised by Dr. Patrick who was present and immediately available in the office suite. Arabella Gabriel RN 10/03/2014 11:18 documented in this encounter Plan of Treatment Not on file documented as of this encounter Procedures Procedure Name Priority Date/Time Associated Diagnosis Comments SED RATE Routine 10/03/2014 10:12 EST Uveitis COMPLETE BLOOD COUNT AND DIFFERENTIAL Routine 10/03/2014 10:12 EST Uveitis C REACTIVE PROTEIN Routine 10/03/2014 10 :12 EST Uveitis COMPREHENSIVE METABOLIC PANEL (CMP) Routine 10/03/2014 10:12 EST Uveitis documented in this encounter Results * (ABNORMAL) COMPREHENSIVE METABOLIC PANEL (CMP) (10/03/2014 10:12 EST) Potassium 4.7 3.5 - 5.0 mEq/L 10/03/2014 12:35 [facility] Sodium 137 136 - 145 mEq/L 10/03/2014 12:35 [facility] Chloride 101 96 - 110 mEq/L 10/03/2014 12:35 [facility] CO2 28 24 - 32 mEq/L 10/03/2014 12:35 [facility] Total Alkaline Phosphatase 52 38 - 126 U/L 10/03/2014 12:35 [facility] Bilirubin, Total <0.5 <1.4 mg/dl 10/03/19 15 12:35 [facility] AST 33 15 - 46 U/L 10/03/2014 12:35 [facility] ALT 25 <53 U/L 10/03/2014 12:35 [facility] Albumin 4.5 3.4 - 4.9 g/dl 10/03/2014 12:35 [facility] Total Protein 7.8 6.5 - 8.3 g/dl 10/03/2014 12:35 [facility] Creatinine 0.62 0.52 - 1.04 mg/dl 10/03/2014 12:35 [facility] GFR, Calculated >60 >60 ml/min/1.7 3m2 10/03/2014 12:35 [facility] BUN 9(L) 10 - 26 mg/dl 10/03/2014 12:35 [facility] Calcium 9.8 8.5 - 10.5 mg/dl 10/03/2014 12:35 [facility] Calculated Calcium 9.7 8.5 - 10.5 mg/dl 10/03/2014 12:35 [facility] Glucose, Serum 82 70 - 100 mg/dl 10/03/2014 12:35 [facility] Fasting? YES 10/03/2014 11:54 [facility] Blood specimen (specimen) BLOOD SPECIMEN / Unknown 10/03/2014 10:12 EST 10/03/2014 11:54 EST us Nuvia Patrick MD CHEMISTRY & BLOOD GAS ORDER GEORGINA Final Result [facility] [address] [place] [address] * C-REACTIVE PROTEIN (10/03/2014 10:12 EST) C-Reactive Protein 0.8 <1.0 mg/dl 10/03/2014 12:35 [facility] Blood specimen (specimen) BLOOD SPECIMEN / Unknown 10/03/2014 10:12 EST 10/03/2014 11:54 EST us Nuvia Patrick MD CHEMISTRY & BLOOD GAS ORDER GEORGINA Final Result [facility] [address] [place] [address] * SED. RATE:WESTERGREN (10/03/2014 10:12 EST) Sed. Rate Westergren 17 0 - 20 mm/hr 10/03/2014 12:14 EST [facility] Blood specimen (specimen) BLOOD SPECIMEN / Unknown 10/03/2014 10:12 EST 10/03/2014 11:54 EST us Nuvia Patrick MD HEMATOLOGY & PF4 ORDERABLES Final Result Performing Organization Address City/[facility]/ZIP Co de Phone Number [facility] [address] [place] [address] * (ABNORMAL) HEMAGRAM AND DIFFERENTIAL (10/03/2014 10:12 EST) WBC 7.17 4.0 - 12.4 K/cmm 10/03/2014 12:07 [facility] RBC 4.25 3.86 - 5.04 M/cmm 10/03/2014 12:07 [facility] Hemoglobin 13.1 11.6 - 15.2 gm/dl 10/03/2014 12:07 [facility] HCT 38.4 34.9 - 44.4 % 10/03/2014 12:07 [facility] MCV 90 81 - 98 fl 10/03/2014 12:07 [facility] MCH 30.7 26.7 - 33.3 pg 10/03/2014 12:07 [facility] MCHC 34.0 32.1 - 35.9 gm/dl 10/03/2014 12:07 [facility] RDW-CV 12.8 11.7 - 14.6 % 10/03/2014 12:07 [facility] RDW-SD 41.6 37.6 - 50.3 fl 10/03/2014 12:07 [facility] PLT 379(H) 141 - 320 K/cmm 10/03/2014 12:07 [facility] MPV 7.9 7.5 - 11.2 fl 10/03/2014 12:07 [facility] % Neutrophils 63.9 45.5 - 79.7 % 10/03/2014 12:07 [facility] % Lymphocytes 26.7 15.0 - 46.8 % 10/03/2014 12:07 [facility] % Monocytes 6.4 1.8 - 12.0 % 10/03/2014 12:07 [facility] % Eosinophils 2.3 0.6 - 6.9 % 10/03/2014 12:07 [facility] % Basophils 0.7 0.2 - 1.4 % 10/03/2014 12:07 [facility] ABS Neutrophils 4.58 2.20 - 8.85 K/cmm 10/03/2014 12:07 [facility] ABS Lymphs 1.91 1.09 - 3.30 K/cmm 10/03/2014 12:07 [facility] ABS Monocytes 0.46 0.1 - 0.8 K/cmm 10/03/2014 12:07 [facility] ABS Eosinophils 0.17 0.03 - 0.61 K/cmm 10/03/2014 12:07 [facility] ABS Basophils 0.05 0.01 - 0.11 K/cmm 10/03/2014 12:07 [facility] Type of Diff: Automated 10/03/2014 12:07 [facility] Blood specimen (specimen) BLOOD SPECIMEN / Unknown 10/03/2014 10:12 EST 10/03/2014 11:54 EST us Nuvia Patrick MD PACKAGES & DNA PROBE ORDERA BLES Final Result [facility] [address] [place] [address] documented in this encounter Visit Diagnoses Diagnosis Uveitis- Primary Unspecified iridocyclitis documented in this encounter Administered Medications Inactive Administered Medications - up to 3 most recent administrations Medication Order MAR Action Action Date Dose Rate Site acetaminophen (TYLENOL) tablet 650 mg 650 mg, oral, NOW X1, 1 dose, On Wed10/03/14 at 1030, RoutineIndications:Uveitis Given 10/03/2014 11:10 EST 650 mg diphenhydrAMINE (BENADRYL) capsule 25-50 mg 25-50 mg, oral, ONCE PRN, 1 dose, Starting on Wed10/03/14 at 1012, Until Wed10/03/14 at 1110, Pre-medication and/or infusion reaction, RoutineIndications:Uveitis Given 10/03/2014 11:10 EST 25 mg inFLIXimab (REMICADE) 300 mg in sodium chloride (NS) 0.9 % 250 mL IVPB 300 mg, intravenous, Administer over 120 Minutes, CONTINUOUS ONE TIME INFUSION, Starting on Wed10/03/14 at 1030, Until Wed10/03/14 at 1736, RoutineIndications:Uveitis New Bag 10/03/2014 12:50 EST 300 mg 300 mL /hr Rate Change 10/03/2014 12:29 EST 300 mg 250 mL/hr Rate Change 10/03/2014 12:15 EST 300 mg 180 mL/hr documented in this encounter Orders Medications Ordered That Gus ht Not Have Been Administered Count Last Ordered Date First Ordered Date EPINEPHrine (ADRENALIN) injection 0.5 mg 1 10/03/2014 EPINEPHrine HCl (PF) (ADRENA ONEAL) 1 mg/mL (1:1,000) (1mL) injection 0.01 mg/kg 1 10/03/2014 methylPREDNISolone sodium WALLER CCINATE (SOLU-MEDROL) injection 40 mg 1 10/03/2014 documented in this encounter Care Teams Sumac Tanner Relationship Specialty Start Date End Date Santosh [place] [address] PCP - General 04/13/14 12/18/14 documented as of this encounter
--- OUTSIDE RECORDS SUMMARY | 2024-08-21 14:11 | XMS_ITS | Encounter Summary ---
Author Organization [facility] Address [address] [place] [address] Care Team Providers Care Contact Lens Cutter Name Role Phone Unavailable Primary Care Provider Unavailabl e Encounter Details Date Type Department Care Team ([facility] st Contact Info) Description 08/18/2006 11:45 EST Hospital Encounter [facility] [address] [place] [address] Nuvia Patrick MD [address] [place] [address],[address] [place] [address] Social History Tobacco Use Types Packs/Day Years [...] Procedure Name Priority Date/Time Associated Diagnosis Comments URINE CHEMICAL (DIP) & SEDIMENT (MICRO) WITHOUT REFLEX TO CULTURE Routine 08/18/2006 14:42 EST COMPLETE BLOOD COUNT AND DIFFERENTIAL Routine 08/18/2006 14:18 EST ANTISTREP O TITER, S Routine 08/18/2006 14:18 EST CREATININE Routine 08/18/2006 14:18 EST HEPATIC FUNCTION PANEL (ALB,ALK PHOS,ALT,AST,DBIL,TOT MACK,TOT PROT) Routine 08/18/2006 14:18 EST documented in this encounter Results * UA WITH MICROSCOPIC (08/18/2006 14:42 EST) Color, UA Yellow [facility] Clarity, UA Clear [facility] Glucose, UA Norm NORM [facility] Bilirubin, UA Neg NEG [facility] Ketones, UA Neg NEG [facility] Specific [place], Urine 1.025 1.005 - 1.02 [facility] Blood, UA Neg NEG [facility] pH, UA 6.0 5.0 - 9.0 [facility] Protein, UA Neg NEG [facility] Urobilinogen, UA Norm NORM mg/dL [facility] Nitrite, UA Neg NEG [facility] Leuk Esterase Neg NEG [facility] WBC, UA less than 1 0 - 5 /HPF [facility] RBC, UA less than 1 0 - 5 /HPF [facility] Squam Epithel, UA None seen NS /HPF [facility] Renal Epithel, UA None seen NS /HPF [facility] Bacteria, UA None seen NS /HPF [facility] Crystals, UA None seen /HPF [facility] Hyaline Casts, UA None seen /LPF [facility] UA Comment Microscopic results are unreliable on urines unrefrig >2hrs or refrig >8hrs. [facility] Mucus, UA Present [facility] Additional Findings Small sample, less than 12 ml received. Microscopic exam done on unspun specimen. [facility] 08/18/2006 14:4 2 EST 08/18/2006 14:43 EST us Nuvia Patrick MD URINALYSIS ORDERABLES Final Result [facility] [address] [place] [address] * (ABNORMAL) LIVER FUNCTION TESTS (08/18/2006 14:18 EST) Albumin 5.3 3.0 - 5.5 g/dl [facility] Total Protein 8.7(H) 6.3 - 8.6 g/dl [facility] Total Alkaline Phosphatase 239 130 - 560 U/L [facility] ALT 27 10 - 35 U/L [facility] AST 32 16 - 46 U/L [facility] Unconjugated Bilirubin 0.5 0.1 - 1.1 mg/dl [facility] Conjugated Bilirubin 0.0 0.0 - 0.3 mg/dl [facility] Bilirubin, Total <0.5 0.0 - 1.4 mg/dl [facility] 08/18/2006 14:1 8 EST 08/18/2006 14:19 EST us Nuvia Patrick MD CHEMISTRY & BLOOD GAS ORDER GEORGINA Final Result [facility] [address] [place] [address] * CREATININE (08/18/2006 14:18 EST) Pathologist [facility] Creatinine 0.58 0.4 - 1.0 mg/dl [facility] GFR, Calculated Age <18 ml/min/1.7 3m2 [facility] 08/18/2006 14:1 8 EST 08/18/2006 14:19 EST us Nuvia Patrick MD CHEMISTRY & BLOOD GAS ORDER GEORGINA Final Result [facility] [address] [place] [address] * (ABNORMAL) HEMAGRAM AND DIFFERENTIAL (08/18/2006 14:18 EST) WBC 12.71 4.5 - 13.0 K/cmm [facility] RBC 4.35 4.00 - 6.20 M/cmm [facility] Hemoglobin 12.4 11.5 - 15.5 gm/dl [facility] HCT 37.2 35.0 - 45.0 % [facility] MCV 86 77 - 95 fl [facility] MCH 28.6 pg [facility] MCHC 33.4 gm/dl [facility] PLT 483(H) 156 - 312 K/cmm [facility] RDW-CV 13.1 % [facility] % Neutrophils 74.8 % [facility] % Lymphocytes 19.7 % [facility] % Monocytes 4.6 % [facility] % Eosinophils 0.5 % [facility] % Basophils 0.4 % [facility] ABS Neutrophils 9.51 K/cmm [facility] ABS Lymphs 2.50 K/cmm [facility] ABS Monocytes 0.59 K/cmm [facility] ABS Eosinophils 0.06 K/cmm [facility] ABS Basophils 0.04 K/cmm [facility] Type of Diff: Automated [facility] 08/18/2006 14:1 8 EST 08/18/2006 14:19 EST us Nuvia Patrick MD PACKAGES & DNA PROBE ORDERA BLES Final Result Performing Organization Address City/[facility] Co de Phone Number [facility] [address] [place] [address] * (ABNORMAL) ANTI STREPTOLYSIN O (08/18/2006 14:18 EST) Anti Strep O Screen 200(H) <200 RADHA U [facility] 08/18/2006 14:1 8 EST 08/18/2006 14:19 EST us Nuvia Patrick MD IMMUNOLOGY AND SEROLOGY ORD ERABLES Final Result Performing Organization Address City/[facility] Co de Phone Number [facility] [address] [place] [address] documented in this encounter Visit Diagnoses Not on filedocumented in this encounter
--- OUTSIDE RECORDS SUMMARY | 2024-08-21 14:11 | XMS_ITS | Encounter Summary ---
Author Organization [facility] Address [address] [place] [address] Care Team Providers Care Orthopedic Surgeon Name Role Phone Santosh Saldivar MD Primary Care Provider [phone] Reason for Visit * Reason Comments Follow-up remicade infusion. c urrently taking antibiotics for a bacterial infection. Encounter Details Date Type Department Care Team (Latest Contact Info) Description 06/01/2014 8:30 EDT Office Visit [facility] Pediatric Rheumatology - Main [address] [address] Nuvia Patrick MD [address] [place] [address],[address] [place] [address] Uveitis (Primary Dx); High risk medication use [...] Sign Reading Time Taken Comments Blood Pressure 118/80 06/01/2014 0810 EDT Pulse 65 06/01/2014 0810 EDT Temperature 35.6 ??C (96.1 ??F) 06/01/2014 0810 EDT Respiratory Rate - - Oxygen Saturation - - Inhaled Oxygen Concentration - - Weight 56.9 kg (125 lb 7.1 oz) 06/01/2014 0810 E DT Height 168.1 cm (5' 6.18) 06/01/2014 0810 EDT Body Mass Index 20.14 06/01/2014 0810 EDT Body Mass Index Percentile 33.66% 06/01/2014 081 0 EDT Growth Chart: [facility] (Girls, 2- 20 Years) documented in this encounter Discharge Diagnoses Diagnosis 364.3 IRIDOCYCLITIS NOS[ICD-9-CM] V58.69 AFTERCARE ALF USE MEDICATN[ICD-9-CM] documented in this encounter Patient Instructions * Patient Instructions* Nuvia Patrick - 06/01/2014 12:02 EDT Planned next infusion in 5 weeks Please get eyes checked just prior to the next infusion to monitor for flare in spacing out the infusions documented in this encounter Progress Notes * Nuvia Patrick - 06/01/2014 1113 EDT Pediatric Rheumatology Follow-Up Visit 06/01/2014 Orlando Bearden is an 19 y.o. female who presents to the infusion bay for her remicade infusion for idiopathic uveitis. She has just starte [employer] and has been sick the past few weeks but is better for the last 5 days or so. She had some fevers associated with some skin lesion that sound like folliculitis in her groin and on her face which were evaluated at [facility], she had a CBC and mono spotsent which looked OK. She is currently on doxycycline for the past 5 or 6 days and had previously been treated with another antibiotic which helped but the folliculitis recurred when the first antibiotic was stopped. She is here for remicade infusion and the nurses wanted to make sure she was OK for the remicade in light of recent illness. Orlando has had many infusions without any premedication but I have ordered benadryl and tylenol here and have asked her to take this. She and I have discussedincreasing the intervals between remicade infusions in an attempt to get to every 8 weeks. She is followed by an eye doctor in [facility] as well as Dr. Golden in [place]. She just recently has moved her care to [facility] with the beginning of college. I have followed her in the past both here and at [facility] when I was seeing patients there. Interval History: Since last visit Orlando has experienced: significant intercurrent illness: see HPI and not experienced: chest pain, cough, eye symptoms, GI symptoms, headache, joint pain, joint swelling, morning stiffness, oral ulcers and shortness of breath. Outpatient Prescriptions Prior to Visit Medication Sig Dispense Refill ??? FLUoxetine (PROZAC) 20 mg tablet Take 20 mg by mouth daily. ??? inFLIXimab (REMICADE) 100 mg injection Inject 300 mg into the vein every 4 weeks. ??? methotrexate 2.5 mg tablet Take 6 Tabs by mouth once a week. 72 Tab 3 ??? norethindrone-ethinyl estradiol (MICROGESTIN 09/18, ,) 1-20 mg-mcg per tablet Take 1 Tab by mouth daily. No facility-administered medications prior to visit. ROS: System Negative Positive Comments Constitutional X Eyes X ENT X Cardiovascular X Pulmonary X Gastrointestinal X Genitourinary X Muscoloskeletal X Integument/breast x See HPI regarding folliculitis and intercurrent illness Neurological X Psychiatric X Endocrine X Hematologic/Lymph X Allergic/Immunologic X Allergies include: Clindamycin and Penicillins Past Medical History Diagnosis Date [...] Disease Neg Hx LABS: Nurse Only on 06/01/2014 Component Date Value [...] Visit on 05/28/2014 Component Date Value ??? Beaver-Test 05/28/2014 Neg ??? WBC 05/28/2014 7.85 ??? [...] Results would indicate no previous exposure to Nurse Only on 05/04/2014 Component Date Value ??? Sed. Rate Westergren 05/04/2014 1 ??? C-Reactive Protein 05/04/2014 1.0* ??? Potassium 05/04/2014 4.5 ??? Sodium 05/04/2014 139 ??? Chloride 05/04/2014 111* ??? CO2 05/04/2014 20* ??? Total Alkaline Phosphata* 05/04/2014 34* ??? Bilirubin, Total 05/04/2014 1.2 ??? AST 05/04/2014 53* ??? ALT 05/04/2014 21 ??? Albumin 05/04/2014 3.5 ??? Total Protein 05/04/2014 6.6 ??? Creatinine 05/04/2014 0.54 ? ? GFR, Calculated 05/04/2014 >60 ??? BUN 05/04/2014 8* ??? Calcium 05/04/2014 7.4* ??? Calculated Calcium 05/04/2014 8.3* ??? Glucose, Serum 05/04/2014 65* ??? Fasting? 05/04/2014 Unknown ??? WBC 05/04/2014 6.78 ??? RBC 05/04/2014 3.50* ??? Hemoglobin 05/04/2014 10.8* ??? HCT 05/04/2014 31.7* ??? MCV 05/04/2014 91 ??? MCH 05/04/2014 30.9 ??? MCHC 05/04/2014 34.0 ??? PLT 05/04/2014 326* ??? RDW-CV 05/04/2014 13.1 ??? Neutrophils 05/04/2014 67.1 ??? Lymphocytes 05/04/2014 25.2 ??? Monocytes 05/04/2014 5.4 ??? Eosinophils 05/04/2014 1.5 ??? Basophils 05/04/2014 0.8 ??? ABS Neutrophils 05/04/2014 4.55 ??? ABS Lymphs 05/04/2014 1.71 ??? ABS Monocytes 05/04/2014 0.37 ??? ABS Eosinophils 05/04/2014 0.10 ??? ABS Basophils 05/04/2014 0.05 ??? Type of Diff: 05/04/2014 Automated Physical Examination: BP 118/80 Pulse 65 Temp(Src) 35.6 ??C (96.1 ??F) (Tympanic) Ht 168.1 cm (66.18) Wt 56.9 kg(125 lb 7.1 oz) BMI 20.14 kg/m2 General: alert, cooperative and no acute distress, looks tired Growth: normal interval growth Head/Neck: No adenopathy and normal thyroid Ears: TMs normal Nose: patent and no erosions Mouth: no oral ulcers and palate clear Chest: lungs clear, no wheezes and no rales CVS: RRR, no murmur, normal pulses and no rub Abdomen: soft, , normal bowel sounds, no hepatosplenomegaly and no masses : some healed small red raised areas in pubic hair region, non tender, had been pustular per Orlando and more numerous when antibiotics were started, Skin: rash as noted in pubic hair region (shaved) and some dry skin around mouth Neuro: grossly normal MSK: all joints have FROM, no pain on ROM, no swelling or limitation of range noted Impression/Plan: Rash looks like folliculitis but appears near resolution, feel it is OK to give remicade today, discussed with Orlando, will plan next infusion in 5 weeks and asked her to get her eyes checked for active inflammation prior to next infusion. She will be seeing her PCP today as well for other issues. I spent a total of 15 minutes in face to face time with this patient and 10 minutes of that time was spent in counseling and coordination of care as described in the progress note. Nuvia Patrick MD 06/01/2014 11:13 documented in this encounter Plan of Treatment Not on file documented as of this encounter Visit Diagnoses Diagnosis Uveitis- Primary Unspecified iridocyclitis High risk medication use Encounter for long-term (current) use of other medications documented in this encounter Historical Medications * This list may reflect changes made after this encounter. doxycycline (VIBRAMYCIN) 100 mg capsule Take 100 mg by mouth 2 times daily. 05/31/2015 added in this encounter Care Teams Orthopedic Surgeon Relationship Specialty Start Date End Date Santosh Saldivar MD [address] [place] [address] PCP - General 04/13/14 12/18/14 documented as of this encounter
--- OUTSIDE RECORDS SUMMARY | 2024-08-21 14:11 | XMS_ITS | Encounter Summary ---
Author Organization [facility] Address [address] [place] [address] Care Team Providers Care Instrumentation And Controls Technician Name Role Phone Santosh Saldivar MD Primary Care Provider [phone] Reason for Visit * Reason Comments Follow-up remicade infusion. t aking antibiotic for sinus infection. Encounter Details Date Type Department Care Team (Latest Contact Info) Description 07/04/2014 12:30 EST Office Visit [facility] Pediatric Rheumatology - Main [place] [address] [place], [place] [address] Nuvia Patrick MD [address] [place] [address],[address] [place], [place] [id number] Uveitis (Primary Dx); High risk medication use [...] Sign Reading Time Taken Comments Blood Pressure 114/70 07/04/2014 1115 EST Pulse 56 07/04/2014 1115 EST Temperature 36.5 ??C (97.7 ??F) 07/04/2014 1115 EST Respiratory Rate - - Oxygen Saturation - - Inhaled Oxygen Concentration - - Weight 56.1 kg (123 lb 10.9 oz) 07/04/2014 1115 EST Height 167.2 cm (5' 5.83) 07/04/2014 1115 EST Body Mass Index 20.07 07/04/2014 1115 EST Body Mass Index Percentile 32.32% 07/04/2014 111 5 EST Growth Chart: [facility] (Girls, 2- 20 Years) documented in this encounter Progress Notes * Nuvia Patrick S - 07/04/2014 1533 EST Pediatric Rheumatology Follow-Up Visit 07/04/2014 Orlando Bearden is an 19 y.o. female who presents to the infusion bay for her remicade infusion for idiopathic uveitis. Since her last visit she had been seen in [facility] and the ED with initially eye pain concerning for uveitis flare. She has had her eyes checked by production planning supervisor eye provider and no uveitis flare noted. She eventually was diagnosed with sinusitis and is on doxycycline again. Shehad been on cipro and developed hives. Orlando has had many infusions without any premedication and she did not receive any today. She and I have discussed increasing the intervals between remicade infusions in an attempt to get to every 8 weeks. She is here today 5 weeks out from last infusion. She is followed by Dr. Franklin in [facility] as well as Dr. Golden in [place]. She just recently has moved her care to [facility] with the beginning of college. I have followed her in the past both here [place] [facility] [place] was [place] patients [place]. Interval [...] Positive Comments Constitutional X Eyes X ENT x See HPI Cardiovascular X Pulmonary X Gastrointestinal X Genitourinary X Muscoloskeletal X Integument/breast x Neurological X Psychiatric X Endocrine X Hematologic/Lymph X Allergic/Immunologic x Hives with cipro Allergies include: Ciprofloxacin; Clindamycin; and Penicillins Past [...] Disease Neg Hx LABS: Nurse Only on 07/04/2014 Component Date Value [...] Visit on 05/28/2014 Component Date Value ??? Parker-Test 05/28/2014 Neg ??? WBC 05/28/2014 7.85 ??? [...] of Diff: 05/04/2014 Automated Physical Examination: BP 114/70 Pulse 56 Temp(Src) 36.5 ??C (97.7 ??F) (Tympanic) Ht 167.2 cm (65.83) Wt 56.1 kg(123 lb 10.9 oz) BMI 20.07 kg/m2 General: alert, cooperative and no acute distress, looks tired Mouth: no oral ulcers and palate clear Chest: lungs clear, no wheezes and no rales CVS: RRR, no murmur, normal pulses and no rub Abdomen: soft, , normal bowel sounds, no hepatosplenomegaly and no masses Neuro: grossly normal MSK: all joints have FROM, no pain on ROM, no swelling or limitation of range noted Impression/Plan: Tolerating every 5 weeks remicade, will plan for 6 weeks for next infusion, will have her get her eyes checked prior to her next infusion, suggested establishing care with a local eye doctor, she will disucss with her dad who is picking her up today, she has a follow up with Dr. Khan in [facility] for her eyes. I spent a total of 15 minutes in face to face time with this patient and 10 minutes of that time was spent in counseling and coordination of care as described in the progress note. Nuvia Patrick MD 07/04/2014 15:33 documented in this encounter Plan of Treatment Not on file documented as of this encounter Visit Diagnoses Diagnosis Uveitis- Primary Unspecified iridocyclitis High risk medication use Encounter for long-term (current) use of other medications documented in this encounter Care Teams Instrumentation And Controls Technician Relationship Specialty Start Date End Date Santosh Saldivar MD [address] [place] [address] [address] [address] PCP - General 04/13/14 12/18/14 documented as of this encounter
--- OUTSIDE RECORDS SUMMARY | 2024-08-21 14:11 | XMS_ITS | Encounter Summary ---
Author Organization [facility] Address [address] [place] [address] Care Team Providers Care Ice Cream Machine Operator Name Role Phone Freeman Herrera MD Primary Care Provider Patsy devi Reason for Visit * Reason Comments Closed Head Injury pt playing laccCashkaroe hit in head by lenaie with her stick no LOC c/o having pressure in head Encounter Details Date Type Department Care Team ([facility] st Contact Info) Description 01/23/2012 12:17 EDT - 01/23/2012 13:45 EDT Emergency [facility] Emergency Department - Main [place] [address] [place] [address] Emil Amaya MD Emergency, MD [place] Closed head injury Discharge Disposition: Home or Self Care Social [...] Sign Reading Time Taken Comments Blood Pressure 107/60 01/23/2012 1225 EDT Pulse 62 01/23/2012 1225 EDT Temperature 36.7 ??C (98.1 ??F) 01/23/2012 1225 EDT Respiratory Rate - - Oxygen Saturation 100% 01/23/2012 1225 EDT Inhaled Oxygen Concentration - - Weight 59 kg (130 lb) 01/23/2012 1226 EDT Height - - Body Mass Index - - documented in this encounter Discharge Instructions * Attachments The following attachments cannot be sent through Care Everywhere. * CLOSED HEAD INJURY: AFTER YOUR VISIT ([facility]) documented in this encounter Medications at Time of Discharge METHOTREXATE SODIUM ORAL Take 6 Tabs by mouth once a week . 04/13/2014 MIRTAZAPINE (REMERON ORAL) Take by mouth. 04/13/2014 tramadol (ULTRAM) 50 mg tablet Take 1 Tab by mouth every 6 hours. 20 Tab 0 01/23/2012 04/13/2014 documented as of this encounter Ordered Prescriptions Prescription Sig Dispense Quantity Refills Last Filled Start Date End Date tramadol (ULTRAM) 50 mg tablet Take 1 Tab by mouth every 6 hours. 20 Tab 0 01/23/2012 04/13/2014 documented in this encounter Discharge Disposition Disposition Code Departure Means Destination Home or Self Care Walk-out Home documented in this encounter ED Notes * Emil Amaya MD - 01/23/2012 1244 EDT DOS: 01/23/2012 Chief Complaint Patient presents with ??? Closed Head Injury pt playing laccrosse hit in head by сергей with her stick no LOC c/o having pressure in head The patient is a 16 y.o. female who presents today with Closed Head Injury HPI Comments: 16-year-old white female patient playing [employer] was struck in the head by the goaliestick without loss of consciousness. The patient is right-hand dominant notices no focal neurological deficit. Patient complains of feeling pressure in her head. No prior history of concussion. The history is provided by the patient and a friend. Closed Head Injury The incident occurred just prior to arrival. The incident occurred at a playground. The injury mechanism was a direct blow. The injury was related to sports. The wounds were not self-inflicted. No protective equipment was used. She came to the ER via personal transport. There is an injury to the head. The pain is moderate. It is unlikely that a foreign body is present. There is no possibility that she inhaled smoke. Pertinent negatives include no chest pain, no fussiness, no numbness, no visualdisturbance, no abdominal pain, no bowel incontinence, no nausea, no vomiting, no bladder incontinence, no headaches, no hearing loss, no inability to bear weight, no neck pain, no pain when bearing w eight, no cough and no difficulty breathing. There have been no prior injuries to these areas. She is right-handed. Her tetanus status is UTD. She has been behaving normally. There were sick contactsno sick contacts. She has received no recent medical care. Review of Systems Constitutional: Negative. HENT: Negative. Negative for hearing loss and neck pain. Eyes: Negative. Negative for visual disturbance. Respiratory: Negative. Negative for cough. Cardiovascular: Negative. Negative for chest pain. Gastrointestinal: Negative. Negative for nausea, vomiting, abdominal pain and bowel incontinence. Genitourinary: Negative. Negative for bladder incontinence. Musculoskeletal: Negative. Skin: Negative. Neurological: Negative. Negative for numbness and headaches. Hematological: Negative. Psychiatric/Behavioral: Negative. All other systems reviewed and are negative. History reviewed. No pertinent past medical history. History reviewed. No pertinent past surgical history. Allergies Allergen Reactions ??? Clindamycin ??? Penicillins History Substance Use Topics ??? Smoking status: Never Smoker ??? Smokeless tobacco: Not on file ??? Alcohol Use: No History reviewed. No pertinent family history. Vital Signs Temp: 36.7 ??C (98.1 ??F) Temp src: Tympanic Pulse: 62 SpO2: 100 % BP: 107/60 mmHg BP Device: BP Machine Patient Position: Sitting BP Cuff Location: Right arm O2 Device: None (Room air) Physical Exam Nursing note and vitals reviewed. Constitutional: She is oriented to person, place, and time. She appears well- developed and well-nourished. HENT: Head: Normocephalic and atraumatic. Eyes: Conjunctivae and EOM are normal. Pupils are equal, round, and reactive to light. Neck: Normal range of motion. Neck supple. Cardiovascular: Normal rate, regular rhythm, normal heart sounds and intact distal pulses. Pulmonary/Chest: Effort normal and breath sounds normal. Abdominal: Soft. Bowel sounds are normal. Musculoskeletal: Normal range of motion. Neurological: She is alert and oriented to person, place, and time. She has normal reflexes. She displays normal reflexes. No cranial nerve deficit. She exhibits normal muscle tone. Coordination normal. No pronator drift, finger to nose is within normal limits. Skin: Skin is warm and dry. Psychiatric: She has a normal mood and affect. Her behavior is normal. Thought content normal. Radiology orders: CT HEAD WO CONTRAST CT HEAD WO CONTRAST Final result not shown here.: CT HEAD (Results Pending) 01/23/2012 13:30 CT Head: Normal study. No hemorrhage, no intracranial mass, no midline shift and nohydrocephalus. No skull fracture. Head CT performed without contrast. Prior studies were not available for comparison. Procedures ED Course: A medical screening exam was performed. History and physical were obtained in the company of the patient's friend. Patient was struck in the head by a [employer] stick. She had a nonfocal neurological exam. CT of the head was negative and the patient discharge. Disposition: Discharged The patient's pain was managed to an adequate level weighing risk vs. benefit of further medications. Upon departure from the Emergency Department, the patient's pain was 0 on a zero to ten scale. Condition at departure from the Emergency Department: Improved Discharge Prescriptions New Prescriptions TRAMADOL (ULTRAM) 50 MG TABLET Take 1 Tab by mouth every 6 hours. MDM Number of Diagnoses or Management Options Closed head injury: new, needed workup Diagnosis management comments: 4 Amount and/or Complexity of Data Reviewed Clinical lab tests: ordered and reviewed Tests in the radiology section of CPT??: ordered and reviewed Discussion of test results with the performing providers: yes Decide to obtain previous medical records or to obtain history from someone other than the patient:yes Obtain history from someone other than the patient: yes Review and summarize past medical records: yes Independent visualization of images, tracings, or specimens: yes Risk of Complications, Morbidity, and/or Mortality Presenting problems: high Diagnostic procedures: high Management options: high Patient Progress Patient progress: improved 1. Closed head injury PCP: Freeman Herrera MD 01/23/2012 13:52 documented in this encounter Miscellaneous Notes * Scanned Note-Null - YARN POLISHING MACHINE OPERATOR, SCAN 2 - 01/27/2012 2300 EDT * Scanned Note-Null - YARN POLISHING MACHINE OPERATOR, SCAN 2 - 01/23/2012 1539 EDT documented in this encounter Plan of Treatment Not on file documented as of this encounter Procedures Procedure Name Priority Date/Time Associated Diagnosis Comments CT HEAD WO CONTRAST 01/23/2012 1 3:27 EDT documented in this encounter Results * CT HEAD WO CONTRAST (01/23/2012 13:27 EDT) Anatomical Region Laterality Modality Other 01/23/2012 13:2 7 EDT 01/23/2012 13:48 EDT Narrative 01/23/2012 13:[address] HEAD W/O CONTRAST ??January 23, 2012 01:28:04 PM Signs and Symptoms: ??CLOSED HEAD INJURY Comparison: None per Technique: CT images were obtained from the vertex through the foramen magnum. 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 This appears simple. Otherwise, there is no intracranial mass, hemorrhage or extra-axial fluid collections. ??There is no mass effect or midline shift. Ford-white differentiation is preserved. ??The ventricles are normal in size and shape. ??The basal cisterns are patent. ??The orbits appear unremarkable aside from left-sided lens extraction. The paranasal sinuses and mastoid air cells are clear. ??No fractures are identified. ?? Impression: 1. No acute intracranial abnormality. 2. 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 This is likely an incidental finding, but could be further evaluated with contrast-enhanced MRI as an outpatient if clinically indicated. Procedure Note 01/23/2012 CT HEAD W/O CONTRAST January 23, 2012 01:28:04 PM Signs and Symptoms: CLOSED HEAD INJURY Comparison: None per Technique: CT images were obtained from the vertex through the foramen magnum. 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 This appears simple. Otherwise, there is no intracranial mass, hemorrhage or extra-axial fluid collections. There is no mass effect or midline shift. Ford-white differentiation is preserved. The ventricles are normal in size and shape. The basal cisterns are patent. The orbits appear unremarkable aside from left-sided lens extraction. The paranasal sinuses and mastoid air cells are clear. No fractures are identified. Impression: 1. No acute intracranial abnormality. 2. 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 This is likely an incidental finding, but could be further evaluated with contrast-enhanced MRI as an outpatient if clinically indicated. Emil Amaya MD IMG CT ORDERABLES Final Resu lt documented in this encounter Visit Diagnoses Diagnosis Closed head injury Head injury, unspecified documented in this encounter Administered Medications Inactive Administered Medications - up to 3 most recent administrations Medication Order MAR Action Action Date Dose Rate Site ibuprofen (MOTRIN) tablet 600 mg 600 mg, oral, NOW X1, 1 dose, On 01/23/12 at 1300, STAT Given 01/23/2012 12:58 EDT 600 mg documented in this encounter Historical Medications * This list may reflect changes made after this encounter. MIRTAZAPINE (REMERON ORAL) Take by mouth. 04/13/2014 METHOTREXATE SODIUM ORAL Take 6 Tabs by mouth once a week . 04/13/2014 added in this encounter Active and Recently Administered Medications Times are shown in EDT. Scheduled Medication Order 01/21/2012 01/22/2012 01/23/2012 ibuprofen (MOTRIN) tablet 600 mg (COMPLETED) 600 mg, oral, NOW X1, 1 dose, On 01/23/12 at 1300, STAT 1258 (Given - Provid er: Komal Adler RN) documented in this encounter Care Teams Ice Cream Machine Operator Relationship Specialty Start Date End Date Freeman Herrera MD PCP - General 01/23/12 04/12/14 documented as of this encounter
--- OUTSIDE RECORDS SUMMARY | 2024-08-21 14:11 | XMS_ITS | Encounter Summary ---
Author Organization [facility] Address [address] [place] [address] Care Team Providers Care Manager Electronic Name Role Phone Santosh Saldivar MD Primary Care Provider [phone] Reason for Visit * Reason Comments New Patient Visit transferring care be cause she is going to school at [employer]. Seen for uveitis and psoriatic arthritis Encounter Details Date Type Department Care Team (Latest Contact Info) Description 04/13/2014 13:00 EDT Office Visit [facility] Pediatric Rheumatology - Main [place] [address], [place] [address] Nuvia Patrick MD [address] [place] [address],[address] [place] [address] Uveitis (Primary Dx); Psoriasis; High risk medication use; Arthralgia Social History Tobacco Use Types Packs/Day Years [...] Sign Reading Time Taken Comments Blood Pressure 126/65 04/13/2014 1252 EDT Pulse 54 04/13/2014 1252 EDT Temperature 36.9 ??C (98.4 ??F) 04/13/2014 1252 EDT Respiratory Rate - - Oxygen Saturation - - Inhaled Oxygen Concentration - - Weight 56.2 kg (123 lb 14.4 oz) 04/13/2014 1252 EDT Height 167.5 cm (5' 5.95) 04/13/2014 1252 EDT Body Mass Index 20.03 04/13/2014 1252 EDT Body Mass Index Percentile 32.66% 04/13/2014 125 2 EDT Growth Chart: [facility] (Girls, 2- 20 Years) documented in this encounter Progress Notes * Nuvia Patrick - 04/13/2014 1440 EDT Pediatric Rheumatology New Patient Visit 04/13/2014 Reason for referral: New Patient Visit HPI: Orlando is seen for the first time in pediatric rheumatology clinic at the request of her PCP: Santosh Saldivar MD. Orlando has diagnosis of chronic uveitis currently treated with methotrexate and remicade. I actually originally saw Orlando at onset around age 10 years of age. She had initially presented with a red eye to Dr. Franklin in [facility] and was noted to have uveitis. She has also been seen by Dr. Osei Golden in [place]. I was seeing her at [facility] after initial presentation to [facility] she was treated with remicade with good response. She was diagnosed with psoriasis which I believe started after the remicade was started. It sounds like her disease was well controlled for many y ears however she flared after discontinuing remicade after a slow taper. She was treated with humira which was ineffective and was eventually restarted on Remicade Her last infusion at their local hospital was about 10 days ago and she has been receiving 300 mg every 4 weeks for 1 and 1/2 to 2 years with no evidence of active inflammation during that time. As Orlando is to be attending [employer] she has transitioned back here and would like to get her infusions here. We discussed the option of adult rheumatology as she is currently 19 and she would prefer to start with me since I have seen her beforeand can transition if schedules do not work out or she feels uncomfortable in a pediatric setting. T here apparently on one occasion of restarting remicade that there was concern for an infusion reaction however that did not prove to be accurate and she is getting regular infusions of remicade with no difficulties for over one year currently. Since I left [facility] she was followed by Dr. Murphy and more recently Dr. Shelton Perez since Dr. Murphy retired. Her last labs were 03/21/14 and were fine with normal CMP and CBC. Orlando is interested in attempting to taper her remicade again as her eyes have been quiet for again for a long time. Orlando has had musculoskeletal complaints on and off involving her hands which feel weak and also some ankle pain. She runs 4 miles a day pretty much daily. She has not noted swelling, she has had achilles tendonitis in the past as well. Her general health has been good, she has been diagnosed with anxiety and depression treated by herPCP Dr. Saldivar with prozac and this has been helping. She has seen GI at [facility] for constipation and ? Diagnosed with IBS although Dr. Ko felt her symptoms were most likely anxiety related. 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 She has had a variety of musculoskeletal complaints and has been diagnosed with arthritis/enthes itis/spondylolysis per her [facility] records that I have to review. She is here with her dad who she has lived with exclusively for the past several years and sees juice infrequently. Orlando has not experienced: alopecia, chest pain, cough, fatigue, fevers, joint swelling, oral ulcers, Raynaud's Syndrome and weight loss. Immunizations are up-to-date. Outpatient Prescriptions Prior to Visit Medication Sig Dispense Refill ??? METHOTREXATE SODIUM ORAL Take 6 Tabs by mouth once a week . ??? MIRTAZAPINE (REMERON ORAL) Take by mouth. ??? tramadol (ULTRAM) 50 mg tablet Take 1 Tab by mouth every 6 hours. 20 Tab 0 No facility-administered medications prior to visit. ROS: System Negative Positive Comments Constitutional X Eyes x See HPI ENT X Cardiovascular X Pulmonary X Gastrointestinal X Genitourinary X Muscoloskeletal X Integument/breast X Neurological X Psychiatric X Endocrine X Hematologic/Lymph X Allergic/Immunologic X Allergies include: Clindamycin and Penicillins Past Medical History Diagnosis Date ??? Psoriasis started on remicade ??? Varicella ??? Joint pain ??? Vision abnormalities ??? Hearing difficulty Family History Problem Relation Age of Onset ??? Ankylosing spondylitis Neg Hx ??? Arthritis-Rheumatoid Neg Hx ??? Inflammatory Bowel Disease Neg Hx ??? Psoriasis Neg Hx ??? Psoriatic arthritis Neg Hx ??? Rheumatologic Disease Neg Hx ??? Scleroderma Neg Hx ??? SLE Neg Hx ??? Ulcerative Colitis Neg Hx ??? Crohn's Disease Neg Hx Past Surgical History Procedure Laterality Date ??? Cataract removal with implant Left ??? Glaucoma surgery Left Living Conditions ??? Lives with Father exclusively Weekdays ??? Education College (freshman) ??? Reported academic performance Doing well Safety and Environmental Exposures History Substance Use Topics ??? Smoking status: Never Smoker ??? Smokeless tobacco: Not on file ??? Alcohol Use: No History Drug Use No History Sexual Activity ??? Sexually Active: Yes ??? Control/ Protection: OCP History Social History Narrative ??? No narrative on file LABS: No visits with results within 3 Month(s) from this visit. Latest known visit with results is: Hospital Outpatient Visit on 08/18/2006 Component Date Value ??? Anti Strep O Screen 08/18/2006 200* ??? WBC 08/18/2006 12.71 ??? RBC 08/18/2006 4.35 ??? Hemoglobin 08/18/2006 12.4 ??? HCT 08/18/2006 37.2 ??? MCV 08/18/2006 86 ??? MCH 08/18/2006 28.6 ??? MCHC 08/18/2006 33.4 ??? PLT 08/18/2006 483* ??? RDW-CV 08/18/2006 13.1 ??? Neutrophils 08/18/2006 74.8 ??? Lymphocytes 08/18/2006 19.7 ??? Monocytes 08/18/2006 4.6 ??? Eosinophils 08/18/2006 0.5 ??? Basophils 08/18/2006 0.4 ??? ABS Neutrophils 08/18/2006 9.51 ??? ABS Lymphs 08/18/2006 2.50 ??? ABS Monocytes 08/18/2006 0.59 ??? ABS Eosinophils 08/18/2006 0.06 ??? ABS Basophils 08/18/2006 0.04 ??? Type of Diff: 08/18/2006 Automated ??? Creatinine 08/18/2006 0.58 ? ? GFR, Calculated 08/18/2006 Age <18 ??? Albumin 08/18/2006 5.3 ??? Total Protein 08/18/2006 8.7* ??? Total Alkaline Phosphata* 08/18/2006 239 ??? ALT 08/18/2006 27 ??? AST 08/18/2006 32 ??? Unconjugated Bilirubin 08/18/2006 0.5 ??? Conjugated Bilirubin 08/18/2006 0.0 ? ? Bilirubin, Total 08/18/2006 <0.5 ??? Color, UA 08/18/2006 Yellow ??? Clarity, UA 08/18/2006 Clear ??? Glucose, UA 08/18/2006 Norm ??? Bilirubin, UA 08/18/2006 Neg ??? Ketones, UA 08/18/2006 Neg ??? Specific Taylor, Urine 08/18/2006 1.025 ??? Blood, UA 08/18/2006 Neg ??? pH, UA 08/18/2006 6.0 ??? Protein, UA 08/18/2006 Neg ??? Urobilinogen, UA 08/18/2006 Norm ??? Nitrite, UA 08/18/2006 Neg ??? Leuk Esterase 08/18/2006 Neg ??? WBC, UA 08/18/2006 less than 1 ??? RBC, UA 08/18/2006 less than 1 ??? Squam Epithel, UA 08/18/2006 None seen ??? Renal Epithel, UA 08/18/2006 None seen ??? Bacteria, UA 08/18/2006 None seen ??? Crystals, UA 08/18/2006 None seen ??? Casts, UA 08/18/2006 None seen ??? UA Comment 08/18/2006 Value:Microscopic results are unreliable on urines unrefrig >2hrs or refrig >8hrs. ??? Mucus, UA 08/18/2006 Present ??? UA Comment 08/18/2006 Value:Small sample, less than 12 ml received. Microscopic exam done on unspun specimen. Physical Examination: BP 126/65 Pulse 54 Temp(Src) 36.9 ??C (98.4 ??F) (Tympanic) Ht 167.5 cm (65.95) Wt 56.2 kg(123 lb 14.4 oz) BMI 20.03 kg/m2 General: alert, cooperative and no acute distress Growth: normal interval growth Head/Neck: No adenopathy and normal thyroid Eyes: some dark areas over lens noted in OS, slightly unequal pupils Nose: patent and no erosions Mouth: no oral ulcers and palate clear Chest: lungs clear, no wheezes and no rales CVS: RRR, no murmur, normal pulses and no rub Abdomen: soft, , normal bowel sounds, no hepatosplenomegaly and no masses Skin: No rash noted Neuro: Normal tone, reflexes, and strength MSK: all joints have FROM, no pain on ROM, no swelling or limitation of range noted, gait normal, leg lengths are equal , jaw is symmetric, FROM of the cervical spine and back is straight, no SI joint tenderness, some pronation of feet, senior network security engineer strength is normal. Impression/Plan: Chronic uveitis responsive to remicade and currently well controlled as well as history of psoriasis, do not see any evidence of inflammatory arthritis on exam, pain may be more mechanical and we discussed this. Will schedule for infusion of remicade 300 mg 05/04/14 which will be about 5 weeks from prior infusion. Discussed coordination of care with exercise equipment specialist and recommended either seeing Dr. Lyle Zarco our uveitis specialist for monitoring of her inflammation or discuss with Dr. Franklin who he would recommend she see if needed in the [place] area to aid in careful follow up especially ifinterested in attempting a taper of medication. Will continue current dose of methotrexate, discussed need to abstain from ETOH while on methotrexate. Will see in follow up with next infusion. I spent a total of 60 minutes in face to face time with this patient and 40 minutes of that time was spent in counseling and coordination of care as described in the progress note. Nuvia Patrick MD 04/13/2014 14:40 documented in this encounter Plan of Treatment Not on file documented as of this encounter Visit Diagnoses Diagnosis Uveitis- Primary Unspecified iridocyclitis Uveitis Unspecified iridocyclitis Psoriasis Other psoriasis High risk medication use Encounter for long-term (current) use of other medications Arthralgia Pain in joint, site unspecified documented in this encounter Discontinued Medications Medication Sig Discontinue Reason Start Date End Da te MIRTAZAPINE (REMERON ORAL) Take by mouth. Patient Stopped Taking 4 tramadol (ULTRAM) 50 mg tablet Take 1 Tab by mouth every 6 hours. Patient Stopped Taking 01/23/2012 04/13/2014 documented as of this encounter Historical Medications * This list may reflect changes made after this encounter. inFLIXimab (REMICADE) 100 mg injection Inject 300 mg into the vein every 8 weeks norethindrone-eth inyl estradiol (MICROGESTIN 09/18, ,) 1-20 mg-mcg per tablet Take 1 Tab by mouth daily. 10/11/2014 FLUoxetine (PROZAC) 20 mg tablet Take 20 mg by mouth daily. 06/01/2015 added in this encounter Care Teams Manager Electronic Relationship Specialty Start Date End Date Santosh Saldivar MD [address] [place] [address] PCP - General 04/13/14 12/18/14 documented as of this encounter
--- OUTSIDE RECORDS SUMMARY | 2024-08-21 14:11 | XMS_ITS | Encounter Summary ---
Author Organization [facility] Address [address] [place] [address] Care Team Providers Care Planning Aide Name Role Phone Unavailable Primary Care Provider Unavailabl e Encounter Details Date Type Department Care Team ([facility] st Contact Info) Description 09/15/2007 Before PRISM Converted Visit (Maple) [facility] - Maple conversion [address], [place] [id number] Terrance Rose MD [address] [place] [phone] Social History Tobacco Use Types Packs/Day Years [...] this encounter Visit Diagnoses * Evaluation - Terrance Rose MD - 07/10/2009 1420 EST NEW PATIENT EVALUATION - Freeman [place] [address] Herrera, Thank you for sending this patient for consultation concerning her chronic respiratory symptoms. Chief Complaint: Shortness of breath and chronic cough. History of Present Illness: Orlando is an 12-year-old girl with a history of idiopathic anterior uveitis who developed some respiratory symptoms a couple of months ago. Orlando had very few respiratory symptoms at baseline. Even when she developed colds, there would rarely be a lingering cough for morethan a week. However, in late May, she developed anacute respiratory illness as did other family members. Her cough, however, lingered and was severe at times. Eventually, in about mid 07/2007, the cough began to subside to a significant degree. Over that 2 month interval she also had shortnessof breath with swimming and exercise. This has also improved over the past 3 to 4 weeks. She no longer reports much nocturnal cough. Her cough is nonproductive. She has complained of intermittent abdominal pain in the past. She was awakening at night from her cough but no longer reports this. She denies any history of chronic nasal congestion, throat clearing or postnasal drip. She does not have headaches or sinus pressure. She denies any ruiz heartburn. She has had a number of visits and interventions concerning her vision, particularly of her left eye recently. Her parent's primary concernwas regarding potential pulmonary toxicity of methotrexate. All other systems are reviewed and negative. Past Medical History: History: Born at term without complications. Medical history as above, significant for uveitis. She had a few episodes of otitis media as a child. She had an innocent murmur which is resolved. She has had emergency department visits for croup as a young child but no other hospitalizations unrelated to the uveitis. She is now having difficulty managing her glaucoma and has loss of vision in her left eye, particularly. She has allergies to penicillin as well as environmental allergies including hay fever. Her immunizations are up to date including the influenza vaccine. Environmental History: There are no new exposures at home. The family has a pet dog. There is no cigarette smoke exposure. Family History: There is no history of asthma or cystic fibrosis. Seasonal allergies do run in the family, particularly on the paternal side. Social History: Orlando is in the 6th grade. She is an avid swimmer. She did miss 1 day of school dueto her cough at the end of last year. Current Medications: 1. Remicade 200 mg every 4 weeks. 2. Methotrexate 25 mg weekly. 3. Variety of eye drops including timolol. 4. She also supplements with folic acid. Physical Examination: Height 155.4 cm, weight 50 kg. Regular rate and rhythm 16, heart rate 61, blood pressure 102/48, oxygen saturation 99 to 100% on room air. General appearance: Alert, comfortable-appearing girl in no distress. HEENT: Conjunctivae were pink. Pupils were equal and round. No sinustenderness was elicited. Nares were with scan mucoid secretions on the left. No polyps or edema. Oropharynx without erythema or exudate. TMs were unremarkable. Neck was supple without adenopathy. Chest: Good aeration. Clear, equal breath sounds. No wheeze, crackles, or retractions. No prolonged expiratory phase. S1, S2 with regular rhythm. No murmurs were appreciated. Abdomen is soft and nontender. Extremities were without clubbing or cyanosis. Further Studies: Spirometry showed an FVC of 102%, FEV 1 of 88%, FEF (25 to 75) 75% predicted. She provided good reproducible efforts. Results indicate normal air flow and vital capacity without a bronchodilator response. Lung volumes were also measured with a normal total lung capacity of 94% predicted, slightly low residual volume and an RV/TLC ratio of 17%. Airways resistance was within normal limits. Diffusing capacity, both uncorrected and corrected for lung volume, were normal at 85 to 86% predicted. Assessment and Plan: Orlando is an 12-year-old girl with a history of uveitis requiring management with methotrexate. There was concern for development of pulmonary toxicity, particularly pulmonary fibrosis. This is a very uncommon complication in the pediatric population, especiallyat her dose of methotrexate. It is also fairly early in the course of treatment to expect such complications. She hada reassuring chest x-ray that had no abnormalities. However, emerging interstitial disease or fibrosis may not be present on a plain film.Her pulmonary function testing was also reassuring indicatingnormal lung capacity and volumes. Her testing results are definitely not enough to explain her previ ous respiratory symptoms. I presume that she had a probable viral illness with lingering airway hyperresponsiveness. There is no definite evidence of asthma in today's testing, and with her improvement of symptoms spontaneously, I would not initiate therapy. To be sure that there is not an emergingprocess, I would recommend repeat pulmonary function testing including lung volumes and DLCO in about 6 months. This testing could be performed locally in [facility], at [facility] or back here at [facility]. I would be happy to coordinate follow up as needed. Sincerely, Signed by Terrance Rose MD 09/19/2007 21:22 Terrance Rose MD Division of Pediatric Pulmonology [phone] - Terrance Rose MD P - JACQUELINE Job ID: [id number] Doc ID: [id number] cc: MD Freeman Thomas MD documented in this encounter
--- OUTSIDE RECORDS SUMMARY | 2024-08-21 14:11 | XMS_ITS | Encounter Summary ---
Author Organization [facility] Address [address] [place] [address] Care Team Providers Care Security Assurance Specialist Name Role Phone Unavailable Primary Care Provider Unavailabl e Encounter Details Date Type Department Care Team (Late st Contact Info) Description 09/15/2007 8:50 EST Hospital Encounter [address] [address] Terrance Rose MD [address] [place] [phone] Social History Tobacco Use Types Packs/Day Years [...]
--- OUTSIDE RECORDS SUMMARY | 2024-08-21 14:11 | XMS_ITS | Encounter Summary ---
Author Organization [facility] Address [address] [place] [address] Care Team Providers Care Solvent Recoverer Name Role Phone Santosh Saldivar MD Primary Care Provider [phone] Reason for Visit * Reason Comments Follow-up remicade infusion Encounter Details Date Type Department Care Team (Latest Contact Info) Description 10/03/2014 13:00 EST Office Visit [facility] Pediatric Rheumatology - Main [address] [id number] Nuvia Patrick MD [address] [place] [address],[address] [place] [address] Uveitis (Primary Dx) Discharge Disposition: Auto Discharge [...] Reading Time Taken Comments Blood Pressure 118/72 10/03/2014 1102 EST Pulse 71 10/03/2014 1102 EST Temperature 35.4 ??C (95.7 ??F) 10/03/2014 1102 EST Respiratory Rate - - Oxygen Saturation - - Inhaled Oxygen Concentration - - Weight 55.4 kg (122 lb 2.2 oz) 10/03/[address] Height 167.7 cm (5' 6.02) 10/03/2014 1102 EST Body Mass Index 19.7 10/03/2014 1102 EST Body Mass Index Percentile 26.31% 10/03/2014 110 2 EST Growth Chart: [facility] (Girls, 2- 20 Years) documented in this encounter Discharge Diagnoses Diagnosis 364.3 IRIDOCYCLITIS NOS[ICD-9-CM] documented in this encounter Patient Instructions * Patient Instructions* Nuvia Patrick - 10/03/2014 11:30 EST We will set up an appointment for you with adolescent peds Dr. [facility] ([phone][facility] to set up an appointment Use the antibiotic ointment you have on your nose, also can use vaseline Try an OTC corticosteroid cream on your face (hydrocortisone) We will plan for your next infusion in 8 weeks and you will get your eyes checked just prior to that infusion Appointment with Dr. Nicolas is for 2:00 PM on 10/11, call them if that does not work for you please,may need a derm referral as well. documented in this encounter Discharge Disposition Disposition Code Departure Means Destination Auto Discharge documented in this encounter Progress Notes * Nuvia Patrick - 10/03/2014 1320 EST Pediatric Rheumatology Follow-Up Visit 10/03/2014 Orlando Bearden is an 19 y.o. female who presents to the infusion bay for remicade and a follow-up visit. Orlando has a history of chronic idiopathic uveitis for many years who I had initially seen herein [place] and then followed at [facility] for several years as well. Since I have left [facility] she was fo llowed by Shelton Perez but currently is a [employer] student and is having her remicade infusions [...] agents. Her psoriasis is currently well controlled. Today she has rash on her left ear that shetreats with protopic. She has had multiple issues since starting college and has been seen [facility] by [facility] as well as by Dr. Saldivar her PCP in [facility]. Dr. Saldivar contacted me recently to see if we could set up a PCP in [place] for Orlando as she has seen multiple providers [facility]. Ongoing problems have included chronic congestion, a rash on her face that started two days ago as well as a UTI diagnosed at [facility] hospital. She has been on multiple courses of antibiotics for sinusitis with no improvement in her congestion. Most recently she has been started on claritin for presumed allergies. The facial rash itches and the only new medication she chico is claritin. She denies fever or cough. She has a history of headaches but denies sinus pain. She exercises regularly running on a treadmill as well as outside. She does have a history of an eating disorder (shared with me by her PCP). She has also had some chronic abdominal complaints as well as back pain. She did see ortho regarding back pain in the past at [facility] with multiple imaging procedures and no additional issues diagnosed at that time. We discussed these multiple issues today and I have set up an appointment for her with Dr. Nicolas the new visual specialist at [facility]. Orlando never had frequent infections when she was on remicade in the past. The question would be if the remicade is contributing to this or more due to college dorm living. I do not believe she has ever had immunoglobulin levels and I will try to add that to today's labs as well. Her uveitis is stable, she has not seen her eye doctor since mid July and needs to set up a follow up to make sure uveitis does not flare as we increase intervals between infusions. In addition Orlando has a history of chronic constipation with use of laxatives although she has not had abdominal pain in the past and is experiencing that now. Interval History: Since last visit Orlando has not experienced any symptoms other than the recurrent issues noted above. She takes methotrexate 15 mg weekly and [...] TACROLIMUS (PROTOPIC TOP) Apply topically as needed. Facility-Administered Medications Prior to Visit Medication Dose Route Frequency Provider Last Rate Last Dose ??? inFLIXimab (REMICADE) 300 mg in sodium chloride (NS) 0.9 % 250 mL IVPB 300 mg intravenous Continuous One Time Infusion Nuvia Patrick MD 300 mL/hr at 10/03/14 1250 300 mg at 10/03/14 1250 ROS: System Negative Positive Comments Constitutional X Eyes X ENT x See above Cardiovascular X Pulmonary X Gastrointestinal X Genitourinary X Muscoloskeletal X x Back pain Integument/breast x Skin rash discussed above Neurological X Psychiatric X Endocrine X Hematologic/Lymph [...] Disease Neg Hx LABS: Nurse Only on 10/03/2014 Component Date Value [...] 09/25/2014 No Chlamydia trachomatis DNA detected by director ambulatory mediated amplification. ??? Result-GC Amp Probe 09/25/2014 No Neisseria gonorrhoeae DNA detected by director ambulatory mediated amplification. Nurse Only on 08/15/2014 Component Date Value [...] 0.12* ??? Type of Diff: 07/04/2014 Automated Physical Examination: BP 118/72 Pulse 71 Temp(Src) 35.4 ??C (95.7 ??F) (Tympanic) Ht 167.7 cm (66.02) Wt 55.4 kg(122 lb 2.2 oz) BMI 19.7 kg/m2 General: alert, cooperative and no acute distress Growth: weight is stable Head/Neck: No adenopathy and normal thyroid Nose: crusting and erythema of the nares noted, congestion noted Mouth: no oral ulcers and palate clear Chest: lungs clear, no wheezes and no rales CVS: RRR, no murmur, normal pulses and no rub Abdomen: soft, , normal bowel sounds, no hepatosplenomegaly and no masses Skin: some psoriaform rash on pinna of left ear, maculopapular rash on face, somewhat pruritic MSK: all joints have FROM, no pain on ROM, no swelling or limitation of range noted, gait normal, leg lengths are equal , jaw is symmetric, FROM of the cervical spine and has some tenderness over themidback over vertebrae with even light touch, no SI joint tenderness noted. Impression/Plan: Uveitis stable but need eye doctor follow up. Mulitple intercurrent issues that would benefit from having a PCP in the area and have set up appointment with Dr. Nicolas to help us manage Orlando's illnesses better and more consistently. I have added immunoglobulins to her labs. Rash does not look sle like, can add VANESSA as well or get at her next visit if rash persists. Do not see an HLA B27 in our lab s but likely had it done at some point in light of uveitis. Will repeat that at her next visit as well in light of back pain in association with uveitis. We will plan for the next infusion in 8 weeks. We discussed the following plan. We will set up an appointment for you with adolescent peds Dr. Nicolas (call [facility] at [phone]) to set up an appointment Use the antibiotic ointment you have on your nose, also can use vaseline Try an OTC corticosteroid cream on your face (hydrocortisone) We will plan for your next infusion in 8 weeks and you will get your eyes checked just prior to that infusion Appointment with Dr. Nicolas is for 2:00 PM on 10/11, call them if that does not work for you please,may need a derm referral as well. I spent a total of 40 minutes in face to face time with this patient and 25 minutes of that time was spent in counseling and coordination of care as described in the progress note. Nuvia Patrick MD 10/03/2014 13:20 documented in this encounter Plan of Treatment Not on file documented as of this encounter Procedures Procedure Name Priority Date/Time Associated Diagnosis Comments OUTPATIENT ADD-ON Routine 10/03/2014 15: 10 EST Uveitis OUTPATIENT ADD-ON Routine 10/03/2014 14: 56 EST Uveitis documented in this encounter Results * OUTPATIENT ADD-ON (10/03/2014 15:10 EST) Tests to be added VANESSA 10/03/2014 15:10 EST [facility] Diagnosis Code SEE PRISM DOS 2.4 10/03/2014 15:14 [facility] Number for problems 7 10/03/2014 15:10 [facility] Comment:8200 Accession number [id number] 10/03/19 15 15:14 [facility] Acknowledge ABP Done 5 16:16 [facility] BLOOD SPECIMEN / Unknown 10/03/2014 15:10 EST 10/03/2014 15:14 EST us Nuvia Patrick MD HEMATOLOGY & PF4 ORDERABLES Final Result [facility] [address] [place] [address] * OUTPATIENT ADD-ON (10/03/2014 14:56 EST) Tests to be added QUANTITATIVE IMMUNOGLOBULINS 10/03/2014 14:56 EST [facility] Comment:IGG, IGM, IGA, IGG S UBCLASSES Diagnosis Code see prism dos 2.4 11/2014 15:02 EST [facility] Number for problems 7 10/03/2014 14:56 EST [facility] Comment:8200 Accession number [id number] 10/03/2014 15:02 EST [facility] Acknowledge ABP Done 10/03/2014 15:36 EST [facility] BLOOD SPECIMEN / Unknown 10/03/2014 14:56 EST 10/03/2014 15:02 EST us Nuvia Patrick MD HEMATOLOGY & PF4 ORDERABLES Final Result Performing Organization Address City/State/[facility] Co de Phone Number [facility] [address] [place] [address] documented in this encounter Visit Diagnoses Diagnosis Uveitis- Primary Unspecified iridocyclitis documented in this encounter Care Teams Solvent Recoverer Relationship Specialty Start Date End Date Santosh Saldivar [place] [address] PCP - General 04/13/14 12/18/14 documented as of this encounter
--- OUTSIDE RECORDS SUMMARY | 2024-08-21 14:11 | XMS_ITS | Encounter Summary ---
Author Organization [facility] Address [address] [place] [address] Care Team Providers Care Director Of Event Sales Name Role Phone Unavailable Primary Care Provider Unavailabl e Encounter Details Date Type Department Care Team ([facility] st Contact Info) Description 08/18/2006 Before PRISM Converted Visit (Maple) [facility] - Maple conversion [address] [place] [address] Nuvia Patrick MD [address] [facility],[address] [place] [address] Social History Tobacco Use Types Packs/Day Years Used Date Smoking Tobacco: Never Assessed Comments Unknown Sex and Gender Information Value Date Recorded Sex Assigned at Not on file Legal Sex Female 18:19 EST Gender Identity Not on file Sexual Orientation Not on file documented as of this encounter Progress Notes * Nuvia Patrick - 09/05/2009 0228 EST PROGRESS/FOLLOWUP NOTE - 08/18/2006 PROBLEM #2: Uveitis. SUBJECTIVE: I am seeing Orlando in followup. She has been diagnosed with idiopathic uveitis. I saw her initially to discuss additional therapies to the topical steroids that she was using. She has a history of an elevated ASO titer, and the consideration of post-strep uveitis was discussed. Because of the possible association with Strep, she went ahead and had a tonsillectomy done by Dr. Jhonny Turcios, I believe in May. Unfortunately, her uveitis has continued to flare, and she has been unable to discontinue her drops. She also has had problems with increased pressure in her eye, and is on therapy for that as well, as prescribed by Dr. Franklin. She otherwise has done well. She has no new sympt oms. Parents are both here to discuss additional therapiesfor her uveitis. We spent about 50 minutes discussing the different alternative therapies, including methotrexate, as well as Remicade. I reviewed side effects, potential risks and benefits of various therapeutic options. We also discussed the complications of chronic topical steroids, one of which she is already experiencing, which is elevated intraocular pressure. We elected to go ahead and get some baseline labs, prior to starting methotrexate. I gave them a prescription for methotrexate to take 1mL, or 25 mg subcutaneous weekly. She is also to take folic acid daily. They are going to initiate the injections at Dr. Freeman Herrera's office, and mom feels she will go ahead and learn how to give them. I suggested continued followup with Dr. Franklin. I would recommend, at his discretion, to taper the topical steroids, possibly waiting until she is on methotrexate for 3 or 4 weeks. I did not, however, feel she needed to stay on four drops per day until that time, in light of the fact that she has elevated pressure, and was able to tolerate just one drop per day not too long ago. I will leave that up to him, and certainly would welcome any questions from him if they should arise. I suggested a 2-3 month trial of methotrexate, withadvancing to Remicade as needed, and she also to get a PPD done at Dr. Herrera's office prior to starting methotrexate. This entire 50-minute visit involved discussion regarding the above. Signed by Nuvia Patrick MD 08/27/2006 13:59 [facility] RheumatologyNuvia Patrick MD Nuvia Patrick MD Division of Pediatric Rheumatology - [place] Patrick MD P - o1 Job ID: [id number] Document ID: [id number] cc: MD Freeman Eubanks MD Deane Rankin, MD documented in this encounter Plan of Treatment Not on file documented as of this encounter Visit Diagnoses Not on filedocumented in this encounter
--- OUTSIDE RECORDS SUMMARY | 2024-08-21 14:11 | XMS_ITS | Encounter Summary ---
Author Organization [facility] Address [address] [place] [address] Care Team Providers Care Superintendent Laundry Name Role Phone Santosh Saldivar MD Primary Care Provider [phone] Encounter Details Date Type Department Care Team ([facility] st Contact Info) Description 09/25/2014 Results Only [facility] Services - [facility] ([facility]) [address] [place], [place] [id number] Katrina Martinez, INDUSTRIAL SAFETY ENGINEER [address] [place] [address] Social History Tobacco Use Types Packs/Day Years [...] Procedure Name Priority Date/Time Associated Diagnosis Comments CHLAMYDIA/N. GONORRHOEAE AMPLIFIED RNA, URINE Routine 09/25/2014 14:21 EST BACTERIAL CULTURE, URINE Routine 09/25/2014 14:21 EST documented in this encounter Results * CHLAMYDIA/GC AMPLIFIED, URINE (09/25/2014 14:21 EST) Specimen Description Urine 09/25/2014 19:33 EST [facility] Chlamydia Result No Chlamydia trachomatis DNA detected by pl sql developer mediated amplification. 09/26/2014 13:32 EST [facility] Comment: A first catch urine specimen is acceptable for detection of Gonorrhea and Chlamydia, but might detect up to 10% fewer infections when compared with vaginal and endocervical swab samples. GC Result No Neisseria gonorrhoeae DNA detected by pl sql developer mediated amplification. 09/26/2014 13:32 EST [facility] Comment: A first catch urine specimen is acceptable for detection of Gonorrhea and Chlamydia, but might detect up to 10% fewer infections when compared with vaginal and endocervical swab samples. URINE / Unknown 09/25/2014 1 4:21 EST 09/25/2014 19:33 EST Katrina Martinez NP MICROBIOLOGY - GENERAL ORDERABL ES Final Result Performing Organization Address [facility] de Phone Number [facility] [address] [place] [address] * BACTERIAL CULTURE, URINE (09/25/2014 14:21 EST) Result No growth 09/27/2014 10:08 EST [facility] URINE / Unknown 09/25/2014 1 4:21 EST 09/25/2014 19:29 EST Katrina Martinez NP MICROBIOLOGY - GENERAL ORDERABL ES Final Result Performing Organization Address [facility] de Phone Number [facility] [address] [place] [address] documented in this encounter Visit Diagnoses Not on filedocumented in this encounter Care Teams Superintendent Laundry Relationship Specialty Start Date End Date Santosh Saldivar MD [address] [place] [address] PCP - General 04/13/14 12/18/14 documented as of this encounter
--- OUTSIDE RECORDS SUMMARY | 2024-08-21 14:11 | XMS_ITS | Encounter Summary ---
Author Organization [facility] Address [address] [place] [address] Care Team Providers Care Supervisor Film Processing Name Role Phone Santosh Saldivar MD Primary Care Provider [phone] Reason for Visit * Reason Comments Follow-up remicade infusion Encounter Details Date Type Department Care Team (Latest Contact Info) Description 05/04/2014 12:30 EDT Office Visit [facility] Pediatric Rheumatology - Main [place] [address] [place], [place] [id number] Nuvia Patrick MD [address] [place] [address],[address] [place] [address] Uveitis (Primary Dx) Social History Tobacco Use [...] Reading Time Taken Comments Blood Pressure 109/66 05/04/2014 1256 EDT Pulse 75 05/04/2014 1256 EDT Temperature 36.3 ??C (97.3 ??F) 05/04/2014 1256 EDT Respiratory Rate - - Oxygen Saturation - - Inhaled Oxygen Concentration - - Weight 54.8 kg (120 lb 13 oz) 05/04/2014 1256 ED T Height 167.4 cm (5' 5.91) 05/04/2014 1256 EDT Body Mass Index 19.56 05/04/2014 1256 EDT Body Mass Index Percentile 25.87% 05/04/2014 125 6 EDT Growth Chart: [facility] (Girls, 2- 20 Years) documented in this encounter Progress Notes * Nuvai Patrick - 05/04/2014 1423 EDT Pediatric Rheumatology Follow-Up Visit 05/04/2014 Orlando Bearden is an 19 y.o. 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 She has started college at [employer] andthings are going OK so far. SHe last saw Dr. Franklin her eye doctor about one month ago and needs follow up in 6 months unless she increases the intervals between infusions. She had been at every 8 weeks infusions several years ago, when remicade was discontinued she flared (see prior note for details) and then restarted on humira which was not effective. She has been on monthly infusions for aboutone year or more. She is interested in trying to increase the intervals between infusions if possible. Interval History: Since last visit Orlando has [...] once a week. 72 Tab 3 ??? METHOTREXATE SODIUM ORAL Take 6 Tabs by mouth once a week . ??? norethindrone-ethinyl estradiol (MICROGESTIN 09/18, ,) 1-20 [...] Disease Neg Hx LABS: Nurse Only on 05/04/2014 Component Date Value ??? Sed. Rate Westergren 05/04/2014 1 ??? WBC 05/04/2014 6.78 ??? RBC 05/04/2014 [...] of Diff: 05/04/2014 Automated Physical Examination: BP 109/66 Pulse 75 Temp(Src) 36.3 ??C (97.3 ??F) (Tympanic) Ht 167.4 cm (65.91) Wt 54.8 kg(120 lb 13 oz) BMI 19.56 kg/m2 She was not examined today Impression/Plan: We discussed getting her next infusion in 4 weeks, asked her to check with Dr. Franklin with referral to verifier in [place] if needs slit lamp exam while remicade is being tapered and unable to get to [facility]. Will consider tapering after her next infusion. I spent a total of 10 minutes in face to face time with this patient and 10 minutes of that time was spent in counseling and coordination of care as described in the progress note. Nuvia Patrick MD 05/04/2014 14:24 documented in this encounter Plan of Treatment Not on file documented as of this encounter Visit Diagnoses Diagnosis Uveitis- Primary Unspecified iridocyclitis documented in this encounter Care Teams Supervisor Film Processing Relationship Specialty Start Date End Date Santosh Saldivar MD [address] [facility] [place] [address] PCP - General 04/13/14 12/18/14 documented as of this encounter
--- OUTSIDE RECORDS SUMMARY | 2024-08-21 14:12 | XMS_ITS | Encounter Summary ---
[place] [address] Care Team Providers Care Agronomy Technician Name Role Phone Santosh Saldivar MD Primary Care Provider [phone] Reason for Visit * Reason Onset Date Comments Other 05/10/2015 labs Encounter Details Date Type Department Care Team ([facility] st Contact Info) Description 05/10/2015 [place] [phone] Karey Irving RN Other (labs) Social History Tobacco Use Types Packs/Day Years [...] encounter Miscellaneous Notes * Telephone Encounter - Karey Irving RN - 05/10/2015 8:26 AM EDT Called Orlando and left message asking her to call back to discuss labs needed for home infusion. documented in this encounter Plan of Treatment Not on file documented as of this encounter Visit Diagnoses Not on filedocumented in this encounter Care Teams Agronomy Technician Relationship Specialty Start Date End Date Santosh [place] [address] PCP - General 02/08/13 07/08/21 documented as of this encounter
--- OUTSIDE RECORDS SUMMARY | 2024-08-21 14:12 | XMS_ITS | Encounter Summary ---
Author Organization [facility] Address [facility] [place] [address] Care Team Providers Care Saxophone Teacher Name Role Phone Santosh Saldivar MD Primary Care Provider [phone] Reason for Visit * Reason Onset Date Comments Medication Refill 12/07/2013 Encounter Details Date Type Department Care Team ([facility] st Contact Info) Description 12/07/2013 [place] [address] Thong Perez MD [facility] [place] [address] Uveitis (Primary Dx) Social History Tobacco Use [...] iridocyclitis documented in this encounter Care Teams Saxophone Teacher Relationship Specialty Start Date End Date Santosh Saldivar MD [address] [place] [address] [address] [place], [place] [id number] PCP - General 02/08/13 07/08/21 documented as of this encounter
--- OUTSIDE RECORDS SUMMARY | 2024-08-21 14:12 | XMS_ITS | Encounter Summary ---
Author Organization [facility] Address [facility] Leona sarahleni [place] [id number] Care Team Providers Care Development Chemist Name Role Phone Freeman Herrera MD Primary Care Provider [phone] Reason for Visit * Reason Comments Follow-up Encounter Details Date Type Department Care Team (Late st Contact Info) Description 11/16/2012 3:30 PM EDT Office Visit [facility] [address] [place] [address] Thong Perez MD [facility] [place] [address] Arthritis (Primary Dx) Discharge Disposition: Home Social History Tobacco Use Types Packs/Day Years [...] Sign Reading Time Taken Comments Blood Pressure 108/62 11/16/2012 3:32 PM EDT Pulse - - Temperature 36.1 ??C (97 ??F) 11/16/2012 3:32 PM EDT Respiratory Rate - - Oxygen Saturation - - Inhaled Oxygen Concentration - - Weight 56.4 kg (124 lb 5.4 oz) 11/16/2012 3:32 P M EDT Height 165.1 cm (5' 5) 11/16/2012 3:32 PM EDT Body Mass Index 20.69 11/16/2012 3:32 PM EDT Body Mass Index Percentile 48.96% 11/16/2012 3:3 2 PM EDT Growth Chart: CDC (Girls, 2- 20 Years) documented in this encounter Progress Notes * Thong Perez MD - 11/16/2012 4:05 PM EDT Rheumatology Outpatient Progress Note Problem List Patient Active Problem List Diagnoses Date Noted ??? Psoriasis 06/24/2012 ??? 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 Uveitis 01/16/2011 Interval History: Orlando Bearden is a 17 y.o. female returns today for f/u of psoriasis, uveitis and enthesitis. Psoriasis resolved on MTX and Humira as did uveitis but still c/o joint pain. Running 5 miles a day and playing lacrosse. ROS: General (-)fevers, (-)chills, (-)night sweats, (-)wt loss/gain, (-)fatigue HEENT (-)vision change, (-)oral ulcers, (-)dry eyes, (-)dry mouth, (-)hair loss CVS (-)chest pain, (-)palpitations, (-)pedal edema Pulm (-)shortness of breath, (-)ASHLEY, (-)wheezes, (-)cough, (-)pleuritic pain GI (-)N/V, (-)abdominal pain, (-)emesis, (-)change in appetite (-)hematuria, (-)dysuria MS (-)muscle weakness, (+)joint pain, (-)joint swelling Endo (-)thyroid disorders, (-)diabetes Neuro (-)focal weakness, (-)paresthesias, (-)gait instability. Skin (-)Raynaud's, (-)rashes, (-)ulcers, (-)photo sensitivity Psych (-) mood disorder Current Outpatient Prescriptions Medication Sig Dispense Refill ??? Adalimumab (HUMIRA PEN) 40 mg/0.8 mL PnKt Inject 40 mg subcutaneously every 14 days. 4 kit 6 ??? methotrexate 2.5 mg tablet Take 6 tablets by mouth once a week. When stomach is empty, 2 hours after eating and do not eat for 1 hour. Labs due in 3 months. 72 tablet 3 ??? traMADol (ULTRAM) 50 mg tablet Take 1 tablet by mouth every 6 hours as needed for Pain. 30 tablet 0 ??? folic acid (FOLVITE) 1 mg tablet Take 1 tablet by mouth daily. 30 tablet 5 ??? tacrolimus (PROTOPIC) 0.1 % ointment ??? diclofenac (VOLTAREN) 75 mg EC tablet Take 1 tablet by mouth 2 times daily. 30 tablet 3 ??? UNKNOWN TO PATIENT daily. Allergies Allergen Reactions ??? Clindamycin Hives ??? Penicillins Nausea And Vomiting Physical Exam: BP 108/62 Temp(Src) 36.1 ??C (97 ??F) (Oral) Ht 165.1 cm (5' 5) Wt 56.4 kg (124 lb 5.4 oz) BMI 20.69 kg/m2 General: AAOx3, NAD, pleasant HEENT: PERRL, Mucous membranes are moist, no oral mucosal ulcerations, temporal artery palpable Neck: Supple, no lymphadenopathy, full range of motion. Cardiovascular: RR, (-)murmurs, rubs, or gallops. Lungs: Clear to auscultation bilaterally, (-)R/R/W Abdomen: Soft, nontender, nondistended, normal active bowel sounds, no hepatosplenomegaly. Back: Tender over spine but not paravertebral Neuro: Alert and oriented x3. Cranial nerves II through XII grossly intact. Strength 5/5 throughout, Sensation to light touch is grossly normal throughout. DTRs are 2+ throughout. Skin: (-)ulcers, (-)rash Extremities Shoulders: FROM, non-tender to palpation Elbows:FROM, (-)pain, (-)nodules Wrists: FROM, no swelling, non-tender hurt after lacrosse Hands: No synovitis, no MCP compression tenderness, full claw and fist. Normal nailfold capillaroscopy Hips: FROM Knees: (-)effusions, non-tender ROM Ankles: FROM, non-tender, no swelling Feet: no MTP compression tenderness +Achilles tenderness No real fibro tender points Assessment: Orlando Bearden is a 17 y.o. female who returns in follow up of spndyloarthrpathy with enthesitis Plan: Add diclofenac Check labs Advice given on travel documented in this encounter Miscellaneous Notes * Addendum Note - Lien Trejo - 11/16/2012 4:10 PM EDTAddended by: LIEN TREJO on: 11/16/2012 04:10 PM Modules accepted: Orders documented in this encounter Plan of Treatment Not on file documented as of this encounter Procedures Procedure Name Priority Date/Time Associated Diagnosis Comments DIFFERENTIAL, AUTOMATED Routine 11/16/2012 4:21 PM EDT SEDIMENTATION RATE Routine 11/16/2012 4: 21 PM EDT Arthritis CBC (WITH DIFF) Routine 11/16/2012 4:21 PM EDT Arthritis CRP, CARDIAC RISK (HS CRP) Routine 11/16/2012 4:21 PM EDT Arthritis VANESSA ANTIBODY SCREEN Routine 11/16/2012 4 :21 PM EDT Arthritis COMPREHENSIVE METABOLIC PANEL Routine 11/16/2012 4:21 PM EDT Arthritis documented in this encounter Results * Differential, Automated (11/16/2012 4:21 PM EDT) Neutrophil % 48.2 37.0 - 77.0 % CERNER MILLENNIUM Neutrophil Absolute 3.93 1.50 - 8.00 x10(3)/mcL CERNER MILLENNIUM Lymph % 45.6 20.0 - 50.0 % CERNER MILLENNIUM Lymphocytes Abs 3.7 1.2 - 5.2 x10(3)/mcL CERNER MILLENNIUM Monocyte % 4.3 2.0 - 12.0 % CERNER MILLENNIUM Monocyte Abs 0.4 0.2 - 1.0 x10(3)/mcL CERNER MILLENNIUM Eos % 1.7 0.0 - 7.0 % CERNER MILLENNIUM Eosinophils Abs 0.1 0.0 - 0.5 x10(3)/mcL CERNER MILLENNIUM Basophil % 0.2 0.0 - 2.0 % CERNER MILLENNIUM Baso Absolute 0.0 0.0 - 0.2 x10(3)/mcL CERNER MILLENNIUM Immature Gran % 0.00 0.00 - 0.66 % [facility] Comment: Immature granulocytes(IG's)percentage and absolute count will include metamyelocytes, myelocytes, and promyelocytes. Blood smears from CBCs yielding IG's will be scanned manually for concordance. If this scan disagrees with the automated IG or if promyelocytes are noted, a manual differential will be performed. Immature Gran Absolute 0.00 0.00 - 0.05 x10(3)/mcL [facility] MILLENNIUM Blood specimen (specimen) 11/16/2012 4:21 PM EDT 11/16/2012 4:50 PM EDT Thong Perez MD HEMATOLOGY ORDERABLE S Performing Organization Address [facility] Co de Phone Number [facility] * VANESSA (11/16/2012 4:21 PM EDT) VANESSA Neg Neg [facility] Blood specimen (specimen) 11/16/2012 4:21 PM EDT 11/17/2012 8:11 AM EDT Narrative Resulting Agency Comment Spec In Lab Thong Perez MD LAB SEND OUT ORDERAB LES Performing Organization Address [facility] Co de Phone Number [facility] * High Sensitivity CRP (11/16/2012 4:21 PM EDT) C-Reactive Protein High Sensitivity 1.0 mg/L [facility] Comment: Interpretations: 1) For cardiac risk assessment, two values (fasting or nonfasting sample acceptable) taken at least 2 weeks apart, should be averaged to provide a more reliable estimate of marker level. ??This laboratory uses the recommendations from the AHA/CDC Scientific Statement for interpretations of future risks of cardiovascular events: ? <1.0 mg/L: low risk 1.0 - 3.0 mg/L: moderate risk >3.0 mg/L: high risk groups for future cardiovascular events 2) The general reference range of apparently healthy individuals using this test is <5.0 mg/L (derived from the test package insert) A few words of caution: For cardiac assessment, when a value >10 mg/L is encountered, there should be a search for an acute inflammatory condition or infection (in patients with acute inflammation, the concentration can increase to >500 mg/L). ??The >10 mg/L should be discarded if such a situation exists, since the risk for coronary heart disease cannot be provided, and a repeat specimen, taken at least two weeks after resolution of the acute inflammatory condition, may allow for appraisal of coronary risk information. Please note that significantly decreased CRP values may be obtained from samples taken from patients who have been treated with carboxypenicillins. References: 1. Carolyn BERNSTEIN et. al. ??AHA/CDC Scientific Statement: Markers of Inflammation and Cardiovascular Disease. ??Circulation 2003; 107:499-511 Ridker PM. ??Clinical applications of C-reactive protein for cardiovascular disease detection and prevention. ??Circulation 2003; 107:363-369 Blood specimen (specimen) 11/16/2012 4:21 PM EDT 11/16/2012 4:50 PM EDT Narrative Resulting Agency Comment Spec In Lab Thong Perez MD CHEMISTRY ORDERABLES Performing Organization Address [facility] de Phone Number [facility] * Sedimentation rate (11/16/2012 4:21 PM EDT) Sedimentation Rate Automated 16 0 - 20 mm/hr [facility] Blood specimen (specimen) 11/16/2012 4:21 PM EDT 11/16/2012 4:50 PM EDT Narrative Resulting Agency Comment Spec In Lab Thong Perez MD HEMATOLOGY ORDERABLE S Performing Organization Address [facility] Co de Phone Number [facility] * (ABNORMAL) Comprehensive metabolic panel (non-fasting) (11/16/2012 4:21 PM EDT) Glucose 79 60 - 199 mg/dL [facility] Comment:Diabetes: >=200 mg/d L plus symptoms Blood Urea Nitrogen 8(L) 10 - 20 mg/dL [facility] Creatinine 0.81(H) 0.20 - 0.70 mg/dL CERNER MILLENNIUM Comment: Please note that the pediatric reference intervals supplied above were not validated at [facility]. Results from pediatric patients should be interpreted in conjunction to the patient's age, height and muscle mass. Sodium 138 135 - 145 mmol/L CERNER MILLENNIUM Potassium 3.5 3.5 - 5.0 mmol/L [facility] MILLENNIUM Comment: Please note: ??Patients with WBC >100,000 may have falsely elevated Potassium levels. ??For accurate Potassium quantification in these patients send serum separator tube (gold top) for subsequent determinations. ??Contact the Clinical Chemistry Laboratory if there are any questions. Chloride 97(L) 98 - 107 mmol/L CERNER MILLENNIUM Carbon Dioxide 26 22 - 31 mmol/L [facility] MILLENNIUM Anion Gap 15 5 - 15 mmol/L [facility]ERN[facility] MILLENNIUM Calcium 9.6 8.5 - 10.5 mg/dL [facility]ERN[facility] MILLENNIUM Protein, Total 8.9(H) 6.4 - 8.3 gm/dL [facility]ERN[facility] MILLENNIUM Albumin 4.9 3.2 - 5.2 gm/dL [facility] MILLENNIUM Aspartate Aminotransferase 23 5 - 30 unit/L [facility] MILLENNIUM Alanine Aminotransferase 16 0 - 25 unit/L CERNER MILLENNIUM Alkaline Phosphatase 55 55 - 140 unit/L CERNER MILLENNIUM Bilirubin, Total 0.2 <=1.0 mg/dL CERNER MILLENNIUM Bilirubin, Direct 0.1 0.0 - 0.3 mg/dL CERNER MILLENNIUM Est Glomerular Filtration Rate See note >=60 [facility] MILLENNIUM Comment: Calculated GFR not appropriate for patients less than 18 years of age. The National Kidney Disease Education Program (NKDEP) has recommended all laboratories report estimated GFR (eGFR) along with plasma creatinine measurements to assist you with recognition of early kidney disease. Caveats: ??Plasma creatinine should be at steady-state (unchanged within the past week). For patients multiply eGFR by 1.2. The MDRD equation was developed using patients between the ages of 18 and 70 years. ?? The MDRD equation has not been validated for patients < 18 years of age and should not be used to assess renal function in the pediatric population. ??The MDRD eGFR equation will also overestimate the true GFR of patients above the age of 70. ??This overestimation is variable but increases with age. At present, NKDEP does NOT recommend using the MDRD equation for drug dosing purposes and pharmacists should continue to use their current dosing methods. In addition, numerical eGFR values greater than 60 ml/min/1.73 square meters should be treated as > 60, and not an exact number due to greater inaccuracies at these higher values. Per NKDEP, they classify normal renal function as any GFR >60ml/min/1.73 square meters; chronic kidney disease when GFR <60, and renal failure when GFR <15. ??This calculation may not be valid for patients with atypical muscle mass (very lean or obese), acute renal failure, and in patients with diabetic kidney disease. References: http://nkdep.nih.gov/resources/NKDEP_Suggestn4Labs_0606_508.pdf http://www.kidney.org/professionals/kls/pdf/faq_gfr.pdf Claudia K, Ric NA, Sheri AK, Wang TS, Cynthia AD, Taty MILLIE. Relative performance of the MDRD and CKD-EPI equations for estimating glomerular filtration rate among patients with varied clinical presentations. Clin J Am Soc Nephrol;6:1963-72. Blood specimen (specimen) 11/16/2012 4:21 PM EDT 11/16/2012 4:50 PM EDT Narrative Resulting Agency Comment Spec In Lab Thong Perez MD CHEMISTRY ORDERABLES [facility] KARLOSBANNERIUM * (ABNORMAL) CBC (with Diff) (11/16/2012 4:21 PM EDT) White Blood Cell 8.2 4.5 - 13.0 x10(3)/mc L CERNER MILLENNIUM Red Blood Cell 4.39 4.10 - 5.10 x10(6)/mc L CERNER MILLENNIUM Hemoglobin 13.4 12.0 - 16.0 gm/dL CERNER MILLENNIUM Hematocrit 41.4 36.0 - 46.0 % CERNER MILLENNIUM Mean Cell Volume 94.3 76.0 - 98.0 fL CERNER MILLENNIUM Mean Cell Hemoglobin 30.5 25.0 - 35.0 pg CERNER MILLENNIUM Mean Cell Hemoglobin Concentration 32.4 32.0 - 36.5 gm/dL CERFANG MILLENNIUM Platelet 421(H) 145 - 370 x10(3)/mc L CERFANG MILLENNIUM RDW Standard Deviation 43.5 35.0 - 46.0 fL CERNER MILLENNIUM RDW coefficient of variation 12.7 10.9 - 14.4 % CERFANG MILLENNIUM Mean Platelet Volume 9.8 9.0 - 12.0 fL SHAHZAD EVERETTENNIUM Blood specimen (specimen) 11/16/2012 4:21 PM EDT 11/16/2012 4:50 PM EDT Narrative Resulting Agency Comment Spec In Lab Thong Perez MD HEMATOLOGY ORDERABLE S Performing Organization Address City/State/[facility] Co de Phone Number SHAHZAD MONSIVAIS documented in this encounter Visit Diagnoses Diagnosis Arthritis- Primary Arthropathy, unspecified, site unspecified documented in this encounter Care Teams Development Chemist Relationship Specialty Start Date End Date Freeman Herrera MD [address] [place] [address] PCP - General 07/22/10 02/07/13 documented as of this encounter
--- OUTSIDE RECORDS SUMMARY | 2024-08-21 14:12 | XMS_ITS | Encounter Summary ---
Author Organization [facility] Address [facility] [place] [address] Care Team Providers Care Oyster Planter Name Role Phone Freeman Herrera MD Primary Care Provider [phone] Reason for Visit * Reason Onset Date Comments Other 01/19/2012 Encounter Details Date Type Department Care Team ([facility] st Contact Info) Description 01/19/2012 [place] [phone] Trupti Sanabria, RN Other Social History Tobacco Use Types [...] encounter Miscellaneous Notes * Telephone Encounter - Trupti Sanabria RN - 01/20/2012 9:46 AM EDT Reached mom this morning and relayed info as per Dr Leona Murphy below. Mom will check in with Orlando's modeling instructor in [place] and the travel clinic. The trip is 2-3 weeks in Sep 2012 so they have time to figure this out. They cannot come on the 22 of February but will be here on the . Cancelled appt for . * Telephone Encounter - Trupti Sanabria RN - 01/20/2012 8:26 AM EDT This nurse spoke with Dr Leona Murphy late yesterday afternoon. Orlando is being treated for uveitis with both MTX and remicade. She would have Orlando and her family speak with the travel clinic to determine the exact risks of going to [place] without the vaccine. Would her modeling instructor suggest holding the remicade for awhile? Would it be feasible to get a vaccine a week before an infusion? These are all questions that Dr Murphy would suggest the family run by either the modeling instructor or travel clinic docs. * Telephone Encounter - Trupti Sanabria RN - 01/19/2012 3:05 PM EDT Mom returned this nurse's phone call. Orlando may have camp on the but they don't know yet. She also states that Dad had called about 2 weeks ago with a question regarding Orlando getting a vaccine for yellow fever so that she could go to [place]. This is a live virus and not recommended. They havenot heard back from us and want to know whether or not she can get the vaccine and go to [place] or not. Pt takes both MTX and remicade. Live vaccines are contraindicated in pt's taking immunosuppresant meds. Will review with Dr Leona Murphy for any suggestions which would allow this [place]. * Telephone Encounter - Trupti Sanabria RN - 01/19/2012 2:14 PM EDT This nurse phoned pt's home to clarify next appt. We have 2 separate appts for Orlando in January. We'd prefer to see Orlando on the if possible. Asked mom to callback to verify her appt. documented in this encounter Plan of Treatment Not on file documented as of this encounter Visit Diagnoses Not on filedocumented in this encounter Care Teams Oyster Planter Relationship Specialty Start Date End Date Freeman Herrera MD [address] [place] [address] [place] [address] PCP - General 07/22/10 02/07/13 documented as of this encounter
--- OUTSIDE RECORDS SUMMARY | 2024-08-21 14:12 | XMS_ITS | Encounter Summary ---
[place] [address] Care Team Providers Care Fire And Safety Helper Name Role Phone Freeman Herrera MD Primary Care Provider [phone] Reason for Visit * Reason Onset Date Comments Other 12/06/2012 Encounter Details Date Type Department Care Team ([facility] st Contact Info) Description 12/06/2012 Telephone [place] [phone] Gisele Vance LPN Other Social History Tobacco Use Types Packs/Day [...] Telephone Encounter - Karey Irving RN - 12/08/2012 10:44 AM EDT Left msg for Luis Daniel to call back re: Dr. Perez's suggestions. * Telephone Encounter - Gisele Vance LPN - 12/07/2012 1:06 PM EDT remicade is fine with me. 5mg/kg. Let me know what you want me to do Continue MTX Whenever we start the remicade she can d/c humira. Thanks Above message from Dr. Perez to relay to Dad * Telephone Encounter - Gisele Vance LPN - 12/06/2012 11:32 AM EDT Orlando Cary's Dad, calls to update us from Dr. Goledn's recommendations. States an office note was sent but his recommendations were not: -Definitely inflammatory issues -Possibly take Humira weekly -go back up on the MTX and back to injectable -New imaging of her back to know when/if changes Luis Daniel states he and Orlando discussed stuff after the appointment and Orlando stated she could consider going to weekly Humira but that she doesn't want to, doesn't like the anxiety or welts from the medication. He does state Orlando was wondering about trying Remicade again, states she said it worked and she doesn't really like the Humira. Informed Luis Daniel I would relay all of the to Dr. Perez but that he may need to have them come in for a visit to discuss further, but that either he or I would get back to them about this. documented in this encounter Plan of Treatment Not on file documented as of this encounter Visit Diagnoses Not on filedocumented in this encounter Care Teams Fire And Safety Helper Relationship Specialty Start Date End Date Freeman Herrera MD [address] [place] [address] PCP - General 07/22/10 02/07/13 documented as of this encounter
--- OUTSIDE RECORDS SUMMARY | 2024-08-21 14:12 | XMS_ITS | Encounter Summary ---
[place] [address] Care Team Providers Care Basket Patcher Name Role Phone Santosh Saldivar MD Primary Care Provider [phone] Reason for Visit * Reason Onset Date Comments Other 03/09/2013 Remicade order Encounter Details Date Type Department Care Team (Late st Contact Info) Description 03/09/2013 Telephone [place] [phone] Karey Irving RN Other (Remicade order) Social History Tobacco Use Types Packs/Day Years [...] Telephone Encounter - Karey Irving RN - 03/09/2013 2:07 PM EDT Yulisa called and left message on nursing line asking that Remicade order be faxed to [facility]. She says she lost the one Dr. Perez gave her. Called Yulisa back and left message telling herorder would be faxed to them today. Asked her to call back if she has any questions. documented in this encounter Plan of Treatment Not on file documented as of this encounter Visit Diagnoses Not on filedocumented in this encounter Care Teams Basket Patcher Relationship Specialty Start Date End Date Santosh Saldivar MD [address] [place] [address] PCP - General 02/08/13 07/08/21 documented as of this encounter
--- OUTSIDE RECORDS SUMMARY | 2024-08-21 14:12 | XMS_ITS | Encounter Summary ---
Author Organization [facility] Address [facility] [place] [address] Care Team Providers Care Clock And Watch Hands Mounter Name Role Phone Freeman Herrera MD Primary Care Provider [phone] Reason for Visit * Reason Onset Date Comments Rash 01/04/2013 Encounter Details Date Type Department Care Team ([facility] st Contact Info) Description 01/04/2013 Telephone [place] [phone] Ismael Mai MD [facility] [place] [address] Rash Social History Tobacco Use Types Packs/Day Years [...] encounter Miscellaneous Notes * Telephone Encounter - Ismael Mai MD - 01/04/2013 10:29 AM EDT Call from Dr Freeman Herrera re rash that had grouped blisters on neck now scabbing no extension beyond dermatome. On immunosuppressive drugs as noted. ? Treatment of suspected herpes zoster. Diagnosios not confirmed though samples sent. Discussed with Dr Arriaga recommended Valacyclovir 1 gram tid x 7 days with close clinical f/u. documented in this encounter Plan of Treatment Not on file documented as of this encounter Visit Diagnoses Not on filedocumented in this encounter Care Teams Clock And Watch Hands Mounter Relationship Specialty Start Date End Date Freeman Herrera MD [address] [facility] [place] [address] PCP - General 07/22/10 02/07/13 documented as of this encounter
--- OUTSIDE RECORDS SUMMARY | 2024-08-21 14:12 | XMS_ITS | Encounter Summary ---
[place] [address] Care Team Providers Care Water Fitness Instructor Name Role Phone Santosh Saldivar MD Primary Care Provider [phone] Reason for Visit * Reason Onset Date Comments Other 03/15/2013 infusion Encounter Details Date Type Department Care Team ([facility] st Contact Info) Description 03/15/2013 Telephone [place] [phone] Karey Irving RN Other (infusion) Social History Tobacco Use Types Packs/Day [...] Telephone Encounter - Karey Irving RN - 03/15/2013 8:44 AM EDT Yulisa is calling because the infusion order for Remicade instructions were incorrect and they are at [facility] for the infusion. She says they should be for 400 mg every [address] Perez's note and called Yulisa back to let her know she was correct. She said Orlando's lab intern found the information in his notes from Dr. Perez and has corrected the order. documented in this encounter Plan of Treatment Not on file documented as of this encounter Visit Diagnoses Not on filedocumented in this encounter Care Teams Water Fitness Instructor Relationship Specialty Start Date End Date Santosh Saldivar MD [address] [place] [address] [address] [facility] [address] PCP - General 02/08/13 07/08/21 documented as of this encounter
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
--- OUTSIDE RECORDS SUMMARY | 2024-08-21 14:12 | XMS_ITS | Encounter Summary ---
Author Organization Formerly [facility] Address [facility] [place] [address] Care Team Providers Care Wash Helper Name Role Phone Freeman Herrera MD Primary Care Provider [phone] Reason for Visit * Reason Onset Date Comments Medication Refill 09/23/2012 Encounter Details Date Type Department Care Team ([facility] st Contact Info) Description 09/23/2012 Refill [place] [id number] Thong Perez MD [facility] [place] [address] Uveitis (Primary Dx) Social History Tobacco Use [...] encounter Miscellaneous Notes * Telephone Encounter - Gisele Vance LPN - 09/23/2012 4:48 PM EST Spoke with Dad (Luis Daniel) and assured him the PA was approved, and the Rx was sent to the correct pharmacy ([facility]). He knows to the next step is once [facility] receives the Rx they will call them to set up delivery. documented in this encounter Plan of Treatment Not on file documented as of this encounter Visit Diagnoses Diagnosis Uveitis- Primary Unspecified iridocyclitis documented in this encounter Care Teams Wash Helper Relationship Specialty Start Date End Date Freeman Herrera MD [address] [facility] [place] [address] PCP - General 07/22/10 02/07/13 documented as of this encounter
--- OUTSIDE RECORDS SUMMARY | 2024-08-21 14:12 | XMS_ITS | Encounter Summary ---
Author [place] [address] Care Team Providers Care Neurologist Name Role Phone Freeman Herrera MD Primary Care Provider [phone] Reason for Visit * Reason Comments IV Medication Encounter Details Date Type Department Care Team (Latest Contact Info) Description 01/16/2013 11:33 AM EDT - 01/16/2013 11:59 PM EDT Hospital Encounter [place] [address] CLINIC, Carlita Del Valle MD [address] [place] [address] [place] [address] Uveitis (Primary Dx) Discharge Disposition: Home Social History [...] Sign Reading Time Taken Comments Blood Pressure 106/62 01/16/2013 11:48 AM EDT Pulse 53 01/16/2013 11:48 AM EDT Temperature 36.5 ??C (97.7 ??F) 01/16/2013 11:48 AM E DT Respiratory Rate 16 01/16/2013 11:48 AM EDT Oxygen Saturation 100% 01/16/2013 11:48 AM EDT Inhaled Oxygen Concentration - - Weight - - Height - - Body Mass Index - - documented in this encounter Medications at Time of Discharge Medication Sig Dispensed Refills Start Date End Date tacrolimus (PROTOPIC) 0.1 % ointment 08/06/2010 diclofenac (VOLTAREN) 75 mg EC tabletIndications:Arthr itis Take 1 tablet by mouth 2 times daily. 30 tablet 3 11/16/2012 07/20/2013 UNKNOWN TO PATIENT daily. 4 methotrexate 2.5 mg tabletIndications:Uveit is Take 6 tablets by mouth once a week. When stomach is empty, 2 hours after eating and do not eat for 1 hour. Labs due in 3 months. 72 tablet 3 05/30/2012 02/08/2013 folic acid (FOLVITE) 1 mg tablet Take 1 tablet by mouth daily. 30 tablet 5 02/23/2012 02/08/2013 documented as of this encounter Progress Notes * Ama Field RN - 01/16/2013 12:21 PM EDT Patient Name: Orlando Bearden Patient Age: 17 y.o. Birthdate: 1995 Admit date: 01/16/2013 Attending Physician: Jann, Dr Meryl MD INFUSION THERAPY ADMINISTRATION NOTE DIAGNOSIS: uveitis REASON FOR VISIT: Remicade SUBJECTIVE: I've been off humira for about 4 weeks. My last remicade was on pierre Sammie. I had a rash with that. OBJECTIVE: Allergies Allergen Reactions ??? Clindamycin Hives ??? Penicillins Nausea And Vomiting LAB DATA: No results found for this or any previous visit (from the past 24 hour(s)). VITAL SIGNS BP 106/62 Pulse 53 Temp(Src) 36.5 ??C (97.7 ??F) (Oral) Resp 16 SpO2 100% IF PAIN > 5, INTERVENTION AND EFFECTIVENESS: IV PLACEMENT: Peripheral IV Insertion/Assessment 01/16/13 1155 Right Hand (Active) HYDRATION, RATE, START TIME, STOP TIME NS @ KVO 1155 ANTIEMETICS/PREMEDS: DOSE, ROUTE, START TIME, STOP TIME Tylenol 650 mg PO @1145 Benadryl 50mg PO @ 1145 Initial orders checked by Ama Field RN Patient identification and orders checked against actual dose given at bedside. TREATMENT: DOSE, ROUTE, START TIME, STOP TIME remicade 300 mg IV see MAR for times REACTIONS (DESCRIPTION, TIME, INTERVENTION, EFFECTIVENESS) None. ASSESSMENT Tolerated treatment well. PLAN Return to clinic in 8 weeks on 03-13. documented in this encounter Procedure Notes * Provider, Scanning - 03/03/2013 10:30 AM EDTAssociated Order(s): SCAN DOC: ORDS - PROVIDER CARE documented in this encounter Plan of Treatment Not on file documented as of this encounter Procedures Procedure Name Priority Date/Time Associated Diagnosis Comments ORDS - PROVIDER CARE SCAN 03/03/2013 10:30 AM EDT documented in this encounter Results * SCAN DOC: ORDS - PROVIDER CARE (03/03/2013 10:30 AM EDT) Narrative 03/03/2013 10:30 AM EDT Procedure Note Provider, Scanning - 03/03/2013 10:30 AM EDT Scanning Provider MEDIA MGR SCAN EXT O RDR/RSLT documented in this encounter Visit Diagnoses Diagnosis Uveitis- Primary Unspecified iridocyclitis documented in this encounter Administered Medications Inactive Administered Medications - up to 3 most recent administrations Medication Order MAR Action Action Date Dose Rate Site inFLIXimab (REMICADE) 300 mg in sodium chloride 0.9% 280 mL infusion 300 mg, Intravenous, ONCE, 1 dose, On 01/16/13 at 1200, Titrate rate per protocol. Use a 0.22 micron filter for administration. New Bag 01/16/2013 12:05 PM EDT 300 mg documented in this encounter Care Teams Neurologist Relationship Specialty Start Date End Date Freeman Herrera MD [address] [place] [address] PCP - General 07/22/10 02/07/13 documented as of this encounter
--- OUTSIDE RECORDS SUMMARY | 2024-08-21 14:12 | XMS_ITS | Encounter Summary ---
Author Organization [facility] Address [facility] [place] [address] Care Team Providers Care Hardboard Panel Printer Name Role Phone Freeman Herrera MD Primary Care Provider [phone] Encounter Details Date Type Department Care Team (Late st Contact Info) Description 05/30/2012 Orders Only [place] [address] Thong Perez MD [facility] [place] [address] Uveitis (Primary Dx) Social History Tobacco Use [...] iridocyclitis documented in this encounter Care Teams Hardboard Panel Printer Relationship Specialty Start Date End Date Freeman Herrera MD [address] [place] [address] PCP - General 07/22/10 02/07/13 documented as of this encounter
--- OUTSIDE RECORDS SUMMARY | 2024-08-21 14:12 | XMS_ITS | Encounter Summary ---
Author Organization [facility] Address [facility] [place] [address] Care Team Providers Care Forming Acid Dumper Name Role Phone Freeman Herrera MD Primary Care Provider [phone] Reason for Visit * Reason Comments Uveitis Encounter Details Date Type Department Care Team ([facility] st Contact Info) Description 05/23/2012 4:45 PM EDT [place] [phone] Thong Perez MD [facility] [address] Uveitis (Primary Dx) Discharge Disposition: Home Social [...] Sign Reading Time Taken Comments Blood Pressure 111/76 05/23/2012 5:01 PM EDT Pulse 57 05/23/2012 5:01 PM EDT Temperature - - Respiratory Rate 16 05/23/2012 5:01 PM EDT Oxygen Saturation 100% 05/23/2012 5:01 PM EDT Inhaled Oxygen Concentration - - Weight 60.3 kg (133 lb) 05/23/2012 5:01 PM EDT Height 170.8 cm (5' 7.25) 05/23/2012 5:01 PM ED T Body Mass Index 20.68 05/23/2012 5:01 PM EDT Body Mass Index Percentile 51.70% 05/23/2012 5:0 1 PM EDT Growth Chart: [facility] (Girls, 2- 20 Years) documented in this encounter Progress Notes * Thong Perez MD - 05/23/2012 6:58 PM EDT This is a new patient consultation seen at the request of Dr. Santosh Saldivar and [facility]. The patient is a 17-year-old female with a history of uveitis presenting as pink eye when she was 10 years old. She was initially treated with drops for quite a while and then treated with methotrexate and soon thereafter Remicade. She has been on Remicade at 4 mg/kg for several years and about two years ago was increased to 5 mg/kg coincident with her increased growth, so the dose I believe has gone from 200 to 300 mg, and she initially had it every eight weeks in addition to methotrexate that was limited to five tablets once a week because of nausea on eight tablets. About age 13, she developed psoriasis, which has largely been small patches, is self-limited. Skin which has been responsive to topicals including Protopic. This summer in an attempt to wean her of the Remicade, the q.8 week was moved to q.10 week Remicade, and she had a major flare of her psoriasis and a flare of her eye disease at the same time. Since then, she has been back on the Remicade and it has largely improved so that she no longer has any psoriasis, but she still has active eye disease. Over the weekend, I gave her Naprosyn for joint pain in her knees and ankles before seeing her,which she took two pills of, but it did not help her, so she discontinued it. Not wanting to take daily medicine if at all possible. The other major complaint is polyarthralgias. She has ankle and knee arthralgias that limit her speed and duration running cross country, and sometimes she has wrist and hand pain when she is doing pottery. It was not entirely clear to me that she had swelling associated with this, but if it was, it was mild. She does not take anything for this pain and it was unclear whether it correlated well to her psoriasis skin disease or to the Remicade infusions or to activities. Her past medical history is only notable for several surgeries related to her eyes. She has had cataract removal in the left eye and also procedures for glaucoma in that eye. Her medications are methotrexate 12.5 a week, Remicade 300 mg every eight weeks now, and folic acid 1 mg. HER ALLERGIES ARE TO PENICILLIN AND CLINDAMYCIN WITH HIVES TO CLINDAMYCIN AND NAUSEA AND VOMITING TO PENICILLIN. Her review of systems is notable for back pain which has been evaluated with an MRI of the spine that showed no ankylosing spondylitis that might have shown a small disk protrusion. She had no other significant findings on that MRI. Her family history is notable for the absence of psoriasis and the absence of what sounds like inflammatory back disease or uveitis. PHYSICAL EXAMINATION: She is a healthy-appearing, athletic young woman. Her vital signs are stable. Her pulse rate is 57, consistent with a long distance runner. Her HEENT exam is notable for braces on her teeth. Normal mucous membranes. Her funduscopic exam in her left eye seemed normal to me, although I would not be able to tell whether she had significant uveitis. Her neck was supple without thyromegaly. Chest is clear. Heart exam is unremarkable except for a soft systolic ejection murmur at the left sternal border that has been noted before. Her abdomen was benign with no organomegaly. Her extremities showed no active synovitis nor was she hypermobile. She had no active psoriatic lesions at this time. We had a long discussion about the issues. Firstly, regarding her uveitis, I understand that she has had continued activity of disease in spite of the Remicade and methotrexate and that in conjunction with psoriasis, especially that flared when she increased the time interval suggested that she was either not getting an adequate dose of Remicade or that it was too long an interval. My suggestion to her was to simply decrease the frequency to every six weeks and see how that went and that should help both the psoriasis and the eye disease. There are a few patients who get psoriasis on Remicade induced by the TNF, but I do not think that is suggestive of this particular scenario. In addition, there are a few patients who get lupus induced by Remicade, and they can get a psoriatic form skin lesion, but I do not think that is the case here either. Lastly, with regard to her joint pain, she could have a spondyloarthropathy or psoriatic arthritis without a spondyloarthropathy, but I would have expected more inflammation. I am not convinced that this is an inflammatory arthritis. If it is, then it should respond to the increased dose of Remicade. In the interim, I am going to give her a test dose of ibuprofen before her track meet on Wednesday to see if it ameliorates the situation. I asked her to get some laboratory studies at home including a sedimentation rate and CRP to follow up on her previous elevated sedimentation rate and CRP and also an HLA-B27 and an VANESSA. It is pending at the time of this dictation. I will follow up in one month. documented in this encounter Plan of Treatment Not on file documented as of this encounter Visit Diagnoses Diagnosis Uveitis- Primary Unspecified iridocyclitis documented in this encounter Care Teams Forming Acid Dumper Relationship Specialty Start Date End Date Freeman Herrera MD [address] [place] [address] PCP - General 07/22/10 02/07/13 documented as of this encounter
--- OUTSIDE RECORDS SUMMARY | 2024-08-21 14:12 | XMS_ITS | Encounter Summary ---
[place] [address] Care Team Providers Care Reception Interviewer Name Role Phone Freeman Herrera MD Primary Care Provider [phone] Reason for Visit * Reason Onset Date Comments Other 12/29/2012 questions Encounter Details Date Type Department Care Team ([facility] st Contact Info) Description 12/29/2012 [place] [phone] Karey Irving RN Other (questions) Social History Tobacco Use Types Packs/Day Years [...] Telephone Encounter - Karey Irving RN - 12/30/2012 11:01 AM EDT Orlando's mom called saying Dr. Perez had called looking for a phone number for Dr. Golden. The phone number is [phone]. She said she has heard from other providers he likes to be contacted by email. She did not have an email address for him. The website is [email or web address] * Telephone Encounter - Karey Irving RN - 12/29/2012 3:37 PM EDT Luis Daniel is calling with some questions for Dr. Perez related to Remicade and Humira. On 12/08/12 orders for Remicade infusion had been sent to [facility]. Dr. Lazar, who is Orlando's pcp contacted Dr. Golden at [facility], who has been responsible for Orlando's care re:uveitis about infusion. Dr. Golden simply said no she could not do the Remicade infusion, but apparently did not explain why. Dr. Golden wanted her to take humira weekly and/or methotrexate injection. They are happy to do whatever is best for Orlando, but do not really understand why Dr. Golden wants things this way. The original conversation happened when Dr. Perez was away at conference and Luis Daniel would like his opinion on the subject. It is noted in 09/02/12 visit note that Orlando had a reaction to Remicade infusion from July. documented in this encounter Plan of Treatment Not on file documented as of this encounter Visit Diagnoses Not on filedocumented in this encounter Care Teams Reception Interviewer Relationship Specialty Start Date End Date Freeman Herrera MD [address] [place] [address] PCP - General 07/22/10 02/07/13 documented as of this encounter
--- OUTSIDE RECORDS SUMMARY | 2024-08-21 14:12 | XMS_ITS | Encounter Summary ---
[place] [address] Care Team Providers Care Windows Systems Architect Name Role Phone Santosh Saldivar MD Primary Care Provider [phone] Reason for Visit * Reason Comments GI Problem with Dad Encounter Details Date Type Department Care Team (Latest Contact Info) Description 09/05/2013 9:05 AM EST Office Visit [place] [phone] Ama Ko MD Constipation (Primary Dx) Discharge Disposition: Home Social History [...] Sign Reading Time Taken Comments Blood Pressure 103/65 09/05/2013 9:19 AM EST Pulse 53 09/05/2013 9:19 AM EST Temperature - - Respiratory Rate - - Oxygen Saturation - - Inhaled Oxygen Concentration - - Weight 55.8 kg (123 lb) 09/05/2013 9:19 AM EST Height 168 cm (5' 6.14) 09/05/2013 9:19 AM EST Body Mass Index 19.77 09/05/2013 9:19 AM EST Body Mass Index Percentile 31.76% 09/05/2013 9:1 9 AM EST Growth Chart: [facility] (Girls, 2- 20 Years) documented in this encounter Progress Notes * Ama Ko MD - 09/05/2013 10:36 AM EST I saw Orlando Bearden with her father September 05 at the request of Dr. Saldivar for constipation. Orlando is 18 years old. She was diagnosed with uveitis at age 10 years. She was treated with methotrexate and steroids without great success. She was then treated with Remicade and methotrexate together. She tried to do just Remicade, but had a relapse. She gets Remicade every month 300 mg and methotrexate 15 mg every week. She has had some issues with psoriasis after two years of Remicade. The psoriasis is not very bad. She has had some achy muscles. No definite arthritis. She had a tendency to loose stools, especially when she ran. She would have some urgency and would have to stool in the lewis at times on a run. In December 2012 she did not stool for about a week. She began to take senna 25 mg tablets off and on during the summer. For the past two weeks she has taken 50 mg of senna every day at night and has had a good bowel movement the next morning, somewhat loose. Rarely has anal pain, never seen blood, does not push excessively, never had a large diameter stool. February 2013, normal CBC, CMP, and TSH. Parents tell me celiac labs were done in June and they were negative. She did try three weeks of no dairy and no gluten and it made no difference in her constipation. In mid-June to mid-July she tried one bisacodyl tablet a day and it did not work as well as the two senna tablets are working. June 2013 she began to have some nagging right lower quadrant abdominal pain, seems to not bother her as much the past few weeks. Never seen blood on the tissue or in the stool, not had anemia, Review of Systems: She has had surgery for cataracts and glaucoma thought to be due to steroids. No fevers. No night sweats. She has had these medical stressors and some social stressors over the past months. Diet: Good fruits and vegetables, whole grains, eats some meats and yogurts, no milk. Socially: Senior in high school, plans college either at [employer] or in [place]. Family History: Maternal great uncle colon cancer in his 60s. No constipation or other GI problems. On exam she appeared healthy. Her weight is about 50th percentile. There has been a gain since her last visit in June. Her height is about 75th percentile. At one point her weight was 75th, but it dropped down in March and is coming back up. I did not ask her about that. Blood pressure 103/65. No lymphadenopathy. Normal thyroid. No mouth sores. Heart: Normal sounds. Lungs: Clear. Abdomen: No pain, mass, or organomegaly. Anus was normal. Orlando had the acute onset of constipation. She is now doing well with two senna per day. This suggests this is mostly slow transit. If she had problems in the rectum the stool should have been large diameter. There has been no blood and her general health has been good over these six months, which would make colon cancer extremely unlikely. She never vomits. There is a slight increased risk of lymphoma taking Remicade, but she has no features suggestive of lymphoma. At least half of the time irritable bowel is related to background stressors and she had had a lot. She probably had diarrhea variant irritable bowel in the past and people can switch back and forth from constipation to diarrhea. She had an abdominal ultrasound today which was normal-no mass- and we will do immunoassay for fecal blood locally. If those are both negative we will sit tight. If they are positive we will do a colonoscopy. I encouraged her to continue to take the two senna. Once she is feeling relaxed and stools are consistently good she can try just one and slowly wean back off. Dad's phone, . Abd ultrasound is normal documented in this encounter Plan of Treatment Not on file documented as of this encounter Visit Diagnoses Diagnosis Constipation- Primary Unspecified constipation documented in this encounter Care Teams Windows Systems Architect Relationship Specialty Start Date End Date Santosh Saldivar MD [address] [facility] [place] [address] PCP - General 02/08/13 07/08/21 documented as of this encounter
--- OUTSIDE RECORDS SUMMARY | 2024-08-21 14:12 | XMS_ITS | Encounter Summary ---
Author Organization [facility] [place] [address] Care Team Providers Care Nurse Emergency Room Name Role Phone Freeman Herrera MD Primary Care Provider [phone] Encounter Details Date Type Department Care Team ([facility] st Contact Info) Description 12/20/2012 6:21 PM EDT - 12/20/2012 11:59 PM EDT Hospital [place] [phone] Social History Tobacco Use Types Packs/Day Years Used Date Smoking Tobacco: Never Smokeless Tobacco: Never Alcohol Use Standard Drinks/Week Comments No 0 (1 standard drink = 0.6 oz pur e alcohol) Sex and Gender Information Value Date Recorded Sex Assigned at Not on file Gender Identity Not on file Sexual Orientation Not on file documented as of this encounter Medications at Time of Discharge [...] 02/23/2012 02/08/2013 documented as of this encounter Miscellaneous Notes * Miscellaneous - Provider, Scanning - 12/27/2012 9:45 AM EDT documented in this encounter Plan of Treatment Not on file documented as of this encounter Procedures Procedure Name Priority Date/Time Associated Diagnosis Comments MRI LUMBAR SPINE WITHOUT CONTRAST Routine 12/20/2012 7:46 PM EDT documented in this encounter Results * MRI lumbar spine without contrast (12/20/2012 7:46 PM EDT) Anatomical Region Laterality Modality L-spine Magnetic Resonan ce 12/20/2012 7:46 PM EDT Narrative 12/21/2012 9:16 AM EDT Examination MR Thoracic Spine WO Roney MRI lumbar spine without gadolinium ?? Clinical History 2 YEARS WORSENING PAIN WITH EXTENSION H/O UVEITIS & ARTHRITIS ? STRESS FRACTURE VS. SPONYLOSIS Comparison Lumbar spine MRI dated 04/28/2011 Technique Routine noncontrast MRI thoracic spine and routine lumbar spine MRI non contrast ?? Findings T-spine: There is normal alignment of the thoracic vertebral segments. ?? Thoracic vertebral bodies and intervertebral disc spaces are normal in height and signal. Cord signal and morphology are normal. No evidence of foraminal mass lesion. No aggressive marrow lesions identified. Paraspinous soft tissues unremarkable. ?? Conus demonstrates normal size shape and signal intensity and terminates appropriately at T12-L1. ?? Lumbar spine MRI: Normal alignment of the 5 lumbar type vertebral bodies and LS junction. ??Vertebral bodies and intervertebral disc spaces are normal in height. ??No pars defects. ??The conus demonstrates normal size shape and signal intensity and terminates appropriately at T12-L1. ??No evidence of disc protrusion central stenosis or foraminal narrowing throughout. Similar to prior exam evidence of tiny fatty filum, no evidence of associated tethering. . . ?? Impression 1. Normal thoracic spine MRI ?? 2. Normal lumbar spine MRI, unchanged from prior examination. Similar appearance probable fatty filum not associated with tethering Procedure Note Vijay Frank MD - 12/21/2012 Examination MR Thoracic Spine WO Roney MRI lumbar spine without gadolinium Clinical History 2 YEARS WORSENING PAIN WITH EXTENSION H/O UVEITIS & ARTHRITIS ? STRESS FRACTURE VS. SPONYLOSIS Comparison Lumbar spine MRI dated 04/28/2011 Technique Routine noncontrast MRI thoracic spine and routine lumbar spine MRI non contrast Findings T-spine: There is normal alignment of the thoracic vertebral segments. Thoracic vertebral bodies and intervertebral disc spaces are normal inheight and signal. Cord signal and morphology are normal. No evidence offoraminal mass lesion. No aggressive marrow lesions identified. Paraspinous softtissues unremarkable. Conus demonstrates normal size shape and signal intensity and terminates appropriately at T12-L1. Lumbar spine MRI: Normal alignment of the 5 lumbar type vertebral bodiesand LS junction. Vertebral bodies and intervertebral disc spaces are normal in height. No pars defects. The conus demonstrates normal size shape andsignal intensity and terminates appropriately at T12-L1. No evidence of disc protrusion central stenosis or foraminal narrowing throughout. Similar toprior exam evidence of tiny fatty filum, no evidence of associated tethering. .. Impression 1. Normal thoracic spine MRI 2. Normal lumbar spine MRI, unchanged from prior examination. Similar appearance probable fatty filum not associated with tethering Santosh Saldivar MD IMG MRI ORDERABLES documented in this encounter Visit Diagnoses Not on filedocumented in this encounter Care Teams Nurse Emergency Room Relationship Specialty Start Date End Date Freeman Herrera MD [address] [address] PCP - General 07/22/10 02/07/13 documented as of this encounter
--- OUTSIDE RECORDS SUMMARY | 2024-08-21 14:12 | XMS_ITS | Encounter Summary ---
Author Organization [facility] Address [facility] [place] [address] Care Team Providers Care Sand Operator Name Role Phone Freeman Herrera MD Primary Care Provider [phone] Reason for Visit * Reason Comments Uveitis Encounter Details Date Type Department Care Team ([facility] st Contact Info) Description 09/02/2012 8:45 AM EST [place] [id number] Thong Perez MD [facility] [address] Uveitis (Primary Dx) Discharge Disposition: Home Social [...] Sign Reading Time Taken Comments Blood Pressure 111/62 09/02/2012 9:12 AM EST Pulse 46 09/02/2012 9:12 AM EST Temperature 36.3 ??C (97.4 ??F) 09/02/2012 9:12 AM ES T Respiratory Rate - - Oxygen Saturation 99% 09/02/2012 9:12 AM EST Inhaled Oxygen Concentration - - Weight 56.5 kg (124 lb 8 oz) 09/02/2012 9:12 AM EST Height 167.6 cm (5' 6) 09/02/2012 9:12 AM EST Body Mass Index 20.09 09/02/2012 9:12 AM EST Body Mass Index Percentile 42.05% 09/02/2012 9:1 2 AM EST Growth Chart: CDC (Girls, 2- 20 Years) documented in this encounter Progress Notes * Mary Ann Sahu - 09/02/2012 10:29 AM ESTAddended by: MARY ANN SAHU on: 09/02/2012 10:29 AM Modules accepted: Orders * Thong Perez MD - 09/02/2012 10:03 AM EST Rheumatology Outpatient Progress Note Problem List Patient Active Problem List Diagnoses Date Noted ??? Psoriasis 06/24/2012 ??? 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 Uveitis 01/16/2011 Interval History: Orlando Bearden is a 17 y.o. female returns today for f/u of psoriasis, uveitis, enthesitis, and nowback pain. Had remicade infusion reaction ROS: General (-)fevers, (-)chills, (-)night sweats, (-)wt loss/gain, (-)fatigue HEENT (-)vision change, (-)oral ulcers, (-)dry eyes, (-)dry mouth, (-)hair loss CVS (-)chest pain, (-)palpitations, (-)pedal edema Pulm (-)shortness of breath, (-)ASHLEY, (-)wheezes, (-)cough, (-)pleuritic pain GI (-)N/V, (-)abdominal pain, (-)emesis, (-)change in appetite (-)hematuria, (-)dysuria MS (-)muscle weakness, ankle pain back pain Endo (-)thyroid disorders, (-)diabetes Neuro (-)focal weakness, (-)paresthesias, (-)gait instability. Skin (-)Raynaud's, (-)rashes, (-)ulcers, (-)photo sensitivity Psych (-) mood disorder Current Outpatient Prescriptions Medication Sig Dispense Refill ??? NAPROXEN ORAL Take by mouth 2 times daily. ??? methotrexate 2.5 mg tablet Take 6 [...] by mouth daily. 30 tablet 5 ??? inFLIXimab (REMICADE) 100 mg injection 300 mg, IV, as directed,before meals ??? betamethasone dipropionate (DIPROLENE) 0.05 % cream 1 Appl(s) Top as directed ??? tacrolimus (PROTOPIC) 0.1 % ointment ??? Adalimumab (HUMIRA PEN) 40 mg/0.8 mL PnKt Inject 40 mg subcutaneously every 14 days. 4 kit 6 ??? UNKNOWN TO PATIENT daily. Allergies Allergen Reactions ??? Clindamycin CIS - Hives ??? Penicillins CIS - Nausea/Vomiting Physical Exam: BP 111/62 Pulse 46 Temp(Src) 36.3 ??C (97.4 ??F) (Oral) Ht 167.6 cm (5' 6) Wt 56.473 kg (124 lb 8 oz) BMI 20.09 kg/m2 SpO2 99% General: AAOx3, NAD, pleasant HEENT: PERRL, Mucous membranes are moist, no oral mucosal ulcerations, temporal artery palpable Neck: Supple, no lymphadenopathy, full range of motion. Cardiovascular: RR, (-)murmurs, rubs, or gallops. Lungs: Clear to auscultation bilaterally, (-)R/R/W Abdomen: Soft, nontender, nondistended, normal active bowel sounds, no hepatosplenomegaly. Back: Nontender over the spine and costovertebral angles bilaterally. Neuro: Alert and oriented x3. Cranial nerves II through XII grossly intact. Strength 5/5 throughout, Sensation to light touch is grossly normal throughout. DTRs are 2+ throughout. Skin: (-)ulcers, (-)rash Extremities Shoulders: FROM, non-tender to palpation Elbows:FROM, (-)pain, (-)nodules Wrists: FROM, no swelling, non-tender Hands: No synovitis, no MCP compression tenderness, full claw and fist. Normal nailfold capillaroscopy Hips: FROM Knees: (-)effusions, non-tender ROM Ankles: FROM, non-tender, no swelling Feet: no MTP compression tenderness Back pain+ Labs: pending Assessment: Orlando Bearden is a 17 y.o. female who returns in follow up of spondyloarthropathy Plan: Humira 40mg QO weeekly Labs [id number] documented in this encounter Plan of Treatment Not on file documented as of this encounter Procedures Procedure Name Priority Date/Time Associated Diagnosis Comments LYME IGG & IGM ANTIBODY Routine 09/02/19 13 10:55 AM EST Uveitis CYTOPLASMIC NEUTROPHILIC AB Routine 09/02/2012 10:55 AM EST Uveitis PROTEINASE-3 ANTIBODY Routine 09/02/2012 10:55 AM EST Uveitis MYELOPEROXIDASE AB Routine 09/02/2012 10 :55 AM EST Uveitis DIFFERENTIAL, AUTOMATED Routine 09/02/19 13 10:55 AM EST HLA-B27 Routine 09/02/2012 10:55 AM EST Uveitis SEDIMENTATION RATE Routine 09/02/2012 10 :55 AM EST Uveitis CBC (WITH DIFF) Routine 09/02/2012 10:55 AM EST Uveitis ANGIOTENSIN CONVERTING ENZYME Routine 09/02/2012 10:55 AM EST Uveitis CRP, CARDIAC RISK (HS CRP) Routine 09/02/2012 10:55 AM EST Uveitis COMPREHENSIVE METABOLIC PANEL Routine 09/02/2012 10:55 AM EST Uveitis documented in this encounter Results * Differential, Automated (09/02/2012 10:55 AM EST) Neutrophil % 64.4 37.0 - 77.0 % CERNER MILLENNIUM Neutrophil Absolute 3.93 1.50 - 8.00 x10(3)/mcL CERNER MILLENNIUM Lymph % 29.5 20.0 - 50.0 % CERNER MILLENNIUM Lymphocytes Abs 1.8 1.2 - 5.2 x10(3)/mcL CERNER MILLENNIUM Monocyte % 4.6 2.0 - 12.0 % CERNER MILLENNIUM Monocyte Abs 0.3 0.2 - 1.0 x10(3)/mcL CERNER MILLENNIUM Eos % 1.0 0.0 - 7.0 % CERNER MILLENNIUM Eosinophils Abs 0.1 0.0 - 0.5 x10(3)/mcL CERNER MILLENNIUM Basophil % 0.3 0.0 - 2.0 % CERNER MILLENNIUM Baso Absolute 0.0 0.0 - 0.2 x10(3)/mcL CERNER MILLENNIUM Immature Gran % 0.20 0.00 - 0.66 % CERNER MILLENNIUM Comment: Immature granulocytes(IG's)percentage and absolute count will include metamyelocytes, myelocytes, and promyelocytes. Blood smears from CBCs yielding IG's will be scanned manually for concordance. If this scan disagrees with the automated IG or if promyelocytes are noted, a manual differential will be performed. Immature Gran Absolute 0.01 0.00 - 0.05 x10(3)/mcL SHAHZAD EVERETTENNIUM Blood specimen (specimen) 09/02/2012 10:55 AM EST 09/02/2012 11:05 AM EST Thong Perez MD HEMATOLOGY ORDERABLE S SHAHZAD MONSIVAIS * HLA-B27 (09/02/2012 10:55 AM EST) HLA-B27 Negative SHAHZAD RENOIUM HLA B27 Interpretation HLA B27 antigen was not detected. Method: Flow Cytometry Reference: 1.Percy DA, Chavez FD, Mine A, et al: Ankylosing spondylitis and HLA-27. Lancet 1973;1:904-907 2.Rupesh Wilde: HLA-B27 typing by use of flow cytofluorometr y. Clin Chem 1987;33:1619-1 623 SHAHZAD RENOIUM Blood specimen (specimen) 09/02/2012 10:55 AM EST 09/02/2012 11:05 AM EST Narrative Resulting Agency Comment Spec In Lab Thong Perez MD HEMATOLOGY ORDERABLE S Performing Organization Address City/[facility] Co de Phone Number SHAHZAD RENOIUM * Lyme IgG & IgM Antibody (09/02/2012 10:55 AM EST) Lyme Antibody Negative Negative CERNER KARLOSENNIUM Blood specimen (specimen) 09/02/2012 10:55 AM EST 09/02/2012 2:36 PM EST Narrative Resulting Agency Comment Spec In Lab Thong Perez MD IMMUNOLOGY ORDERABLE S Performing Organization Address [facility] Co de Phone Number SHAHZAD RENOIUM * Proteinase-3 Antibody (09/02/2012 10:55 AM EST) Proteinase 3 Antibody 3.3 <=20.0 unit(s) CERFANG EVERETTENNIUM Blood specimen (specimen) 09/02/2012 10:55 AM EST 09/02/2012 1:57 PM EST Narrative Resulting Agency Comment Spec In Lab Thong Perez MD IMMUNOLOGY ORDERABLE S Performing Organization Address [facility] de Phone Number SHAHZAD RENOIUM * Myeloperoxidase Ab (09/02/2012 10:55 AM EST) Myeloperoxidase Antibody <2.0 <=20.0 unit(s) CERFANG EVERETTENNIUM Blood specimen (specimen) 09/02/2012 10:55 AM EST 09/02/2012 1:57 PM EST Narrative Resulting Agency Comment Spec In Lab Thong Perez MD IMMUNOLOGY ORDERABLE S Performing Organization Address [facility] Co de Phone Number SHAHZAD RENOIUM * Cytoplasmic Neutrophilic Ab (09/02/2012 10:55 AM EST) C-Anca (MAY) Negative Negative CERNER MILLENNIUM Comment: Test Performed by: [address] [address] Occupational Health Rn: Devin Overton III, M.D. P-Anca (DECEMBER) Negative Negative CERNER MILLENNIUM Comment: Negative for cANCA and pANCA patterns by immunofluorescence. Test Performed by: [address] [address] Occupational Health Rn: Devin Overton III, M.D. Blood specimen (specimen) 09/02/2012 10:55 AM EST 09/02/2012 12:23 PM EST Narrative Resulting Agency Comment Spec In Lab Thong Perez MD LAB SEND OUT ORDERAB LES Performing Organization Address [facility] Co de Phone Number [facility] * Angiotensin Converting Enzyme (09/02/2012 10:55 AM EST) Arnoldo (DECEMBER) 31 unit/L CERNER MILLENNIUM Comment: -- REFERENCE VALUE -- The reference interval for pediatric patients may be up to 50% higher than that of adults (8-53 U/L). Test Performed by: [place] [address] Occupational Health Rn: Karen Castanon, Ph.D. Blood specimen (specimen) 09/02/2012 10:55 AM EST 09/02/2012 12:22 PM EST Narrative Resulting Agency Comment Spec In Lab Thong Perez MD LAB SEND OUT ORDERAB LES Performing Organization Address City/[facility]/ZIP Co de Phone Number [facility] * High Sensitivity CRP (09/02/2012 10:55 AM EST) C-Reactive Protein High Sensitivity 7.2 mg/L [facility] Comment: Interpretations: 1) For cardiac risk assessment, [...] Inflammation and Cardiovascular Disease. ??Circulation 2003; 107:499-511 [facility]. ??Clinical applications of C-reactive protein for cardiovascular disease detection and prevention. ??Circulation 2003; 107:363-369 Blood specimen (specimen) 09/02/2012 10:55 AM EST 09/02/2012 11:05 AM EST Narrative Resulting Agency Comment Spec In Lab Thong Perez MD CHEMISTRY ORDERABLES Performing Organization Address [facility] Phone Number [facility] * Sedimentation rate (09/02/2012 10:55 AM EST) Sedimentation Rate Automated 17 0 - 20 mm/hr [facility] Blood specimen (specimen) 09/02/2012 10:55 AM EST 09/02/2012 11:05 AM EST Narrative Resulting Agency Comment Spec In Lab Thong Perez MD HEMATOLOGY ORDERABLE S Performing Organization Address [facility] Phone Number [facility] * (ABNORMAL) Comprehensive metabolic panel (non-fasting) (09/02/2012 10:55 AM EST) Glucose 83 60 - 199 mg/dL [facility] Comment:Diabetes: >=200 mg/d L plus symptoms Blood Urea Nitrogen 7(L) 10 - 20 mg/dL CERNER MILLENNIUM Creatinine 0.69 0.20 - 0.70 mg/dL CERNER MILLENNIUM Comment: Please note that the pediatric reference intervals supplied above were not validated at [facility]. Results from pediatric patients should be interpreted [...] Laboratory if there are any questions. Chloride 101 98 - 107 mmol/L CERNER MILLENNIUM Carbon Dioxide 28 22 - 31 mmol/L CERNER MILLENNIUM Anion Gap 9 5 - 15 mmol/L CERNER MILLENNIUM Calcium 9.1 8.5 - 10.5 mg/dL CERNER MILLENNIUM Protein, Total 7.9 6.4 - 8.3 gm/dL CERNER MILLENNIUM Albumin 4.4 3.2 - 5.2 gm/dL CERNER MILLENNIUM Aspartate Aminotransferase 25 5 - 30 unit/L CERNER MILLENNIUM Alanine Aminotransferase 14 0 - 25 unit/L CERNER MILLENNIUM Alkaline Phosphatase 49(L) 55 - 140 unit/L CERNER MILLENNIUM Bilirubin, Total 0.2 <=1.0 mg/dL CERNER MILLENNIUM Bilirubin, Direct <0.1 0.0 - 0.3 mg/dL CERNER MILLENNIUM Est [...] J Am Soc Nephrol;6:1963-72. Blood specimen (specimen) 09/02/2012 10:55 AM EST 09/02/2012 11:05 AM EST Narrative Resulting Agency Comment Spec In Lab Thong Perez MD CHEMISTRY ORDERABLES SHAHZAD KARLOSMITZYIUM * CBC (with Diff) (09/02/2012 10:55 AM EST) White Blood Cell 6.1 4.5 - 13.0 x10(3)/mcL CERNER MILLENNIUM Red Blood Cell 4.47 4.10 - 5.10 x10(6)/mcL CERNER MILLENNIUM Hemoglobin 13.5 12.0 - 16.0 gm/dL CERNER MILLENNIUM Hematocrit 41.6 36.0 - 46.0 % CERNER MILLENNIUM Mean Cell Volume 93.1 76.0 - 98.0 fL CERNER MILLENNIUM Mean Cell Hemoglobin 30.2 25.0 - 35.0 pg [facility] KARLOSENNIUM Mean Cell Hemoglobin Concentration 32.5 32.0 - 36.5 gm/dL [facility] KARLOSENNIUM Platelet 284 145 - 370 x10(3)/mcL [facility] KARLOSENNIUM RDW Standard Deviation 43.1 35.0 - 46.0 fL [facility] KARLOSENNIUM RDW coefficient of variation 12.7 10.9 - 14.4 % [facility] KARLOSENNIUM Mean Platelet Volume 9.7 9.0 - 12.0 fL [facility] KARLOSENNIUM Blood specimen (specimen) 09/02/2012 10:55 AM EST 09/02/2012 11:05 AM EST Narrative Resulting Agency Comment Spec In Lab Thong Perez MD HEMATOLOGY ORDERABLE S [facility] documented in this encounter Visit Diagnoses Diagnosis Uveitis- Primary Unspecified iridocyclitis documented in this encounter Care Teams Sand Operator Relationship Specialty Start Date End Date Freeman Herrera MD [address] [place] [address] PCP - General 07/22/10 02/07/13 documented as of this encounter
--- OUTSIDE RECORDS SUMMARY | 2024-08-21 14:12 | XMS_ITS | Encounter Summary ---
Author Organization [facility] Address [facility] [place] [address] Care Team Providers Care Network Systems Consultant Name Role Phone Santosh Saldivar MD Primary Care Provider [phone] Reason for Visit * Reason Comments Rheumatoid Arthritis JRA Encounter Details Date Type Department Care Team ([facility] st Contact Info) Description 07/20/2013 9:15 AM EST [place] [address] Thong Perez MD [facility] [place] [address] Abdominal pain, other specified site (Primary Dx) Discharge Disposition: Home Social History [...] Sign Reading Time Taken Comments Blood Pressure 112/63 07/20/2013 9:28 AM EST Pulse 50 07/20/2013 9:28 AM EST Temperature 36.5 ??C (97.7 ??F) 07/20/2013 9:28 AM ES T Respiratory Rate - - Oxygen Saturation 100% 07/20/2013 9:28 AM EST Inhaled Oxygen Concentration - - Weight 54.9 kg (121 lb) 07/20/2013 9:28 AM EST Height 165.1 cm (5' 5) 07/20/2013 9:28 AM EST Body Mass Index 20.14 07/20/2013 9:28 AM EST Body Mass Index Percentile 37.67% 07/20/2013 9:2 8 AM EST Growth Chart: CDC (Girls, 2- 20 Years) documented in this encounter Progress Notes * Thong Perez MD - 07/20/2013 9:59 AM EST Rheumatology Outpatient Progress Note Problem List Patient Active Problem List Diagnosis Date Noted ??? Headache 04/12/2013 ??? Chronic pain 04/12/2013 ??? Psoriasis 06/24/2012 ??? 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 Uveitis 01/16/2011 Interval History: Cornel Bearden is a 18 y.o. female returns today for f/u of uveitis spondy psoriasis arthritis on mtx and remicade doing well except constipation ROS: General (-)fevers, (-)chills, (-)night sweats, (-)wt loss/gain, (-)fatigue HEENT (-)vision change, (-)oral ulcers, (-)dry eyes, (-)dry mouth, (-)hair loss CVS (-)chest pain, (-)palpitations, (-)pedal edema Pulm (-)shortness of breath, (-)ASHLEY, (-)wheezes, (-)cough, (-)pleuritic pain GI (-)N/V, (+)abdominal pain, (-)emesis, (-)change in appetite (-)hematuria, (-)dysuria MS (-)muscle weakness, (-)joint pain, (-)joint swelling Endo (-)thyroid disorders, (-)diabetes Neuro (-)focal weakness, (-)paresthesias, (-)gait instability. Skin (-)Raynaud's, (-)rashes, (-)ulcers, (-)photo sensitivity Psych (-) mood disorder Current Outpatient Prescriptions Medication Sig Dispense Refill ??? bisacodyl (DULCOLAX) 5 mg EC tablet Take 5 mg by mouth daily as needed. ??? inFLIXimab (REMICADE) 100 mg injection Inject 40 mLs into the vein every 28 days. 1 each 6 ??? methotrexate 2.5 mg tablet Take 6 tablets by mouth once a week. When stomach is empty, 2 hours after eating and do not eat for 1 hour. Labs due in 3 months. 72 tablet 3 ??? folic acid (FOLVITE) 1 mg tablet Take 1 tablet by mouth daily. 30 tablet 5 ??? UNKNOWN TO PATIENT daily. ??? tacrolimus (PROTOPIC) 0.1 % ointment ??? [DISCONTINUED] diclofenac (VOLTAREN) 75 mg EC tablet Take 1 tablet by mouth 2 times daily. 30 tablet 3 Allergies Allergen Reactions ??? Clindamycin Hives ??? Penicillins Nausea And Vomiting Physical Exam: BP 112/63 Pulse 50 Temp 36.5 ??C (97.7 ??F) (Oral) Ht 165.1 cm (5' 5) Wt 54.885 kg (121 lb) BMI 20.14 kg/m2 SpO2 100% General: AAOx3, NAD, pleasant HEENT: PERRL, Mucous membranes are moist, no oral mucosal ulcerations, Left small catarract rest neg Neck: Supple, no lymphadenopathy, full range of motion. Cardiovascular: RR, (-)murmurs, rubs, or gallops. Lungs: Clear to auscultation bilaterally, (-)R/R/W Abdomen: Soft, nontender, nondistended, normal active bowel sounds, no hepatosplenomegaly. Back: Nontender over the spine and costovertebral angles bilaterally. Neuro: Alert and oriented x3. Cranial nerves II through XII grossly intact. Strength 5/5 throughout, Sensation to light touch is grossly normal throughout. Skin: (-)ulcers, (-)rash Extremities Shoulders: FROM, non-tender to palpation Elbows:FROM, (-)pain, (-)nodules Wrists: FROM, no swelling, non-tender Hands: No synovitis, no MCP compression tenderness, full claw and fist. Hips: FROM Knees: (-)effusions, non-tender ROM Ankles: FROM, non-tender, no swelling Feet: no MTP compression tenderness Labs: nl cbc and nl CMT Assessment: Cornel Bearden is a 18 y.o. female who returns in follow up of uveitis spondy psoriasis arthritis Plan: Same meds Try dietary changes Ultrasound appt with Dr. Ko routine MTX labs [facility] prepare for college in the fall documented in this encounter Plan of Treatment Not on file documented as of this encounter Results * US abdomen complete (09/05/2013 11:28 AM EST) Anatomical Region Laterality Modality Abdomen, Vascular Ultrasound 09/05/2013 11:2 8 AM EST Narrative 09/05/2013 11:33 AM EST ?Pediatric Abdomen ? (Signed Final 09/05/2013 11:31 am) Patient Info ID: ? [id number] ? : ??[birth year] (18 yrs) Name: ? CORNEL BEARDEN ?Visit Date: 09/05/2013 11:24 am Performed By Performed By: ?Mercedes [address] RDMS Attending: ? Nilton HERNANDES, Landry Jaffe Referred By: ? THONG PEREZ MD Service(s) Provided [facility] - Abdominal Complete Survey - [id number] ? [id number] Indications RLQ pain and constipation; R/O CHRONES DISEASE ----- Liver ----- Right Lobe Length: ?? 16 ? cm Echogenicity/Echotexture: ?? Normal Gallbladder Cholelithiasis: ?No stones visualized Wall Thickness: ?1.9mm Focal Tenderness: ?Negative Burgos's sign Biliary Tract Intrahepatic Ducts: ?? Normal Extrahepatic Ducts: ?? Normal Common Duct: ? 1 ? mm -------- Pancreas -------- Head: ? Normal Tail: ? Poorly visualized due to overlying bowel Body: ? Normal ------ Spleen ------ Size (cm) ?L: ??8.7 Comment: ?Normal appearance Right Kidney Date ? L(cm) ? AP(cm) ?TV(cm) ?Vol 09/05/13 ? 11 Hydronephrosis: ?? No sonographic evidence Left Kidney Date ? L(cm) ? AP(cm) ?TV(cm) ?Vol 09/05/13 ? 10.4 Hydronephrosis: ?? No sonographic evidence ----- Aorta ----- Comment: ?Normal in caliber where visualized --- IVC --- Normal in caliber where visualized Impression Ultrasound - Abdomen Complete - Summary Normal abdominal ultrasound exam. No evidence of gallstones or bowel abnormality, but consider MRI to evaluate for bowel pathology. I ??viewed the images and agree with the above interpretation. Thank you for allowing us to participate in the care of CORNEL BEARDEN. Please do not hesitate to call if you have any questions. ? Landry Callaway MD Electronically Signed Final Report ?? 09/05/2013 11:31 am Procedure Note Landry Callaway MD - 09/05/2013 Pediatric Abdomen (Signed Final 09/05/2013 11:31 am) Patient Info ID: [id number] : [birth year] (18 yrs) Name: CORNEL BEARDEN Visit Date: 09/05/2013 11:24 am Performed By Performed By: [address] RDMS Attending: Landry Callaway MD Referred By: THONG PEREZ MD Service(s) Provided [facility] - Abdominal Complete Survey - [id number] Indications RLQ pain and constipation; R/O CHRONES DISEASE ----- Liver ----- Right Lobe Length: 16 cm Echogenicity/Echotexture: Normal Gallbladder Cholelithiasis: No stones visualized Wall Thickness: 1.9mm Focal Tenderness: Negative Burgos's sign Biliary Tract Intrahepatic Ducts: Normal Extrahepatic Ducts: Normal Common Duct: 1 mm -------- Pancreas -------- Head: Normal Tail: Poorly visualized due to overlying bowel Body: Normal ------ Spleen ------ Size (cm) L: 8.7 Comment: Normal appearance Right Kidney Date L(cm) AP(cm) TV(cm) Vol 09/05/13 11 Hydronephrosis: No sonographic evidence Left Kidney Date L(cm) AP(cm) TV(cm) Vol 09/05/13 10.4 Hydronephrosis: No sonographic evidence ----- Aorta ----- Comment: Normal in caliber where visualized --- IVC --- Normal in caliber where visualized Impression Ultrasound - Abdomen Complete - Summary Normal abdominal ultrasound exam. No evidence of gallstones or bowel abnormality, but consider MRI to evaluate for bowel pathology. I viewed the images and agree with the above interpretation. Thank you for allowing us to participate in the care of CORNEL BEARDEN. Please do not hesitate to call if you have any questions. Landry Callaway MD Electronically Signed Final Report 09/05/2013 11:31 am Thong Perez MD IMG US GEN ORDERABLE S documented in this encounter Visit Diagnoses Diagnosis Abdominal pain, other specified site- Primary Abdominal pain, other specified site documented in this encounter Care Teams Network Systems Consultant Relationship Specialty Start Date End Date Santosh Saldivar MD [address] [place] [address] PCP - General 02/08/13 07/08/21 documented as of this encounter
--- OUTSIDE RECORDS SUMMARY | 2024-08-21 14:12 | XMS_ITS | Encounter Summary ---
[place] [address] Care Team Providers Care Signal Worker Helper Name Role Phone Santosh Saldivar MD Primary Care Provider [phone] Reason for Visit * Reason Onset Date Comments Other 02/15/2013 benadryl Encounter Details Date Type Department Care Team ([facility] st Contact Info) Description 02/15/2013 [place] [phone] Karey Irving RN Other (benadryl) Social History Tobacco Use Types Packs/Day Years [...] Telephone Encounter - Karey Irving RN - 02/15/2013 10:25 AM EDT Yulisa is calling to get permission for Orlando to not take the Benadryl prior to her remicade infusion. Explained to Yulisa that it and the Tylenol are given as a prophylactic measure and that if Orlando or Yulisa choose to refuse it that is fine. Reinforced that Orlando should let infusion nurse know if anything feels wrong during the infusion and it could be slowed down or stopped depending on symptoms and administered at that time if needed. Yulisa verbalized understanding of all information. documented in this encounter Plan of Treatment Not on file documented as of this encounter Visit Diagnoses Not on filedocumented in this encounter Care Teams Signal Worker Helper Relationship Specialty Start Date End Date Santosh Saldivar MD [address] [place] [address] PCP - General 02/08/13 07/08/21 documented as of this encounter
--- OUTSIDE RECORDS SUMMARY | 2024-08-21 14:12 | XMS_ITS | Encounter Summary ---
Author Organization [facility] [place] [address] Care Team Providers Care News Internship Name Role Phone Santosh Baca MD Primary Care Provider [phone] Reason for Referral * Psychiatric (Routine) - Patient Refused - Seen Elsewhere Sooner Specialty Diagnoses / Procedures Referred By Contac t Referred To Contact Psychiatry Diagnoses Psoriasis Uveitis Spondylolysis of lumbar region Marleny Donato, [facility] [place] [address] [facility] [address] [place] [address] Referral ID Status Reason Start Date Expiration Date Visits Requested Visits Authorized [id number] Patient Refused - Seen Elsewhere Sooner Consult, Test & Treat 04/12/2013 10/09/2013 1 1 Reason for Visit * Reason Comments Altered Mental Status Encounter Details Date Type Department Care Team (Late st Contact Info) Description 04/12/2013 12:45 PM EDT Office Visit [place] [address] Marleny Donato [facility] [place] [address] Psoriasis (Primary Dx); Uveitis; Spondylolysis of lumbar region; Headache; Chronic pain Discharge Disposition: Home Social History Tobacco Use [...] Sign Reading Time Taken Comments Blood Pressure 97/51 04/12/2013 12:42 PM EDT Pulse 50 04/12/2013 12:42 PM EDT Temperature - - Respiratory Rate - - Oxygen Saturation - - Inhaled Oxygen Concentration - - Weight 53.5 kg (117 lb 15.1 oz) 013 12:42 PM EDT Height 167.3 cm (5' 5.87) 04/12/2013 1 2:42 PM EDT Head Circumference 23.4 cm 04/12/2013 12 :42 PM EDT Body Mass Index 19.11 04/12/2013 12:42 PM EDT Body Mass Index Percentile 24.61% 04/12 12:42 PM EDT Growth Chart: [facility] (Girls, 2- 20 Years) documented in this encounter Patient Instructions * Patient Instructions* Marleny Donato DO - 04/12/2013 2:30 PM EDT 1. Follow-up in 6 months for consideration of repeat MRI with contrast, once braces are off. 2. Contact clinic sooner with recurrent symptoms. 3. Consider behavioral health evaluation to consider stress, mood condition as contributing factor to headache and chronic pain. 4. Consider nutrition assessment to evaluate caloric intake, weight loss. documented in this encounter Progress Notes * Marleny Donato DO - 04/12/2013 1:45 PM EDT Pediatric Neurology Consultation 04/12/2013 Referring: SANTOSH BACA MD Patient: Orlando Bearden 18 y.o. 1 m.o. 1995 Orlando Bearden is a 18 yo female with uveitis, rhumatoid arthritis and spondylolysis who presents for pediatric neurology consultation at the request of SANTOSH BACA MD because of concern for recent headache and chronic pain issues. Orlando describes concern for 2 week history of headache which has since resolved. She reports onset of headache symptoms 1 month ago. At onset, headache was persistent and daily with posterior parietal localization, rated as 5/10 on pain scale. Her headache exacerbated with sound, but did not cause her to limit her activities. She did experience blurred vision at one point, which subsequently resolved with headache resolution. There was no vision loss, eye pain or diplopia. Symptoms did not require treatment. There is no additional change in vision, hearing, strength, sensation or coordination at baseline or with exacerbation. There is no prior history of head trauma. There is no syncope, change in academics or interpersonal interactions. Orlando does report generalized chronic pain which has not responded to her rhuematologic regimen. Mom reports concern for significant stress, but the family denies concerns for depressed mood. Headache hygiene: Denies iipp-kjd-[id number] use for headaches more than twice weekly. Denies regular caffeine use. Reports normal sleep routine with durationof 8 hours. No snoring reported. Denies dietary or menstrual triggers. Pertinant Imaging: MRI brain (03/28/13): No contrast. Pineal cyst with artifact. Medications: Remicaid, tacrolimus, methrotrexate, FA, OCP. Denies concern for adverse side effects. Allergies:clinda, PCN (hives). 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 Uveitis followedby ophthalmology annually or with flares. Intermittant constipation followed by PCP. No other medical conditions. No history of head injury, meningitis, encephalitis, serious accidents, injuries, hospitalizations. Surgery: SH: Currently in 12th grade. Normal social and peer interactions. FH: migranes in mother and brother, multiple maternal relatives with autoimmune conditions Review of Systems: Constitutional: No fevers. Normal appetite and energy. Some weight loss noted. HEENT: Normal vision without eye pain. Normal hearing without ear pain or tinnitus. No difficulty swallowing, changes in voice. CV: No reported chest pain or discomfort. Resp: No reported shortness of breath, cough, or difficulty breathing. GI: No reported nausea,vomiting, diarrhea, abdominal pain or incontinence. ? Constipation. : No reported incontinence or dysuria. Musculoskeletal: No reported joint swelling. Skin: No rash or bruising, changes in pigmentation, sores Hematologic: No reports of pallor, easy bruising or bleeding, frequent infections Neuro: see HPI Filed Vitals: 04/12/13 1242 BP: 97/51 Pulse: 50 Wt Readings from Last 3 Encounters: 04/12/13 53.5 kg (117 lb 15.1 oz) (41.76%*) 02/08/13 55 kg (121 lb 4.1 oz) (49.61%*) 11/16/12 56.4 kg (124 lb 5.4 oz) (56.70%*) * Growth percentiles are based on CDC 2-20 Years data. Ht Readings from Last 3 Encounters: 04/12/13 167.3 cm (5' 5.87) (74.94%*) 11/16/12 165.1 cm (5' 5) (63.69%*) 09/02/12 167.6 cm (5' 6) (77.25%*) * Growth percentiles are based on CDC 2-20 Years data. Body mass index is 19.11 kg/(m^2). 24.61%ile based on CDC 2-20 Years BMI-for-age data. 41.76%ile based on CDC 2-20 Years [id number] data. 74.94%ile based on CDC 2-20 Years yypwavk-ugg-pmz data. GENERAL : Normal eye contact. No acute distress. No dysmorphic features. CV: RR without M/R/G. RESP: CTA B/L. ABD: BS intact without R/R/G. No HSM. MUSC: No dysraphism. EXT: Without clubbing, cyanosis or edema. SKIN: No neurocutaneous abnormality. No rashes. NEURO: Alert, awake, oriented. Speech and language fluent, appropriate. Follows commands easily. CN: Anisecoria L>R, reactive in light and dark- reported as baseline per parent. VFFTC, vision normal, No red desat. EOMI without nystagmus. No ptosis. Facies symmetric with intact sensation. Normal hearing to finger rub. Normal palatal elevation. MOTOR: 5/5 strength throughout, normal tone, no tremors. DTRs: 1+ throughout, toes downgoing. No clonus. SENS: responds to LT, temp and noxious stimulation throughout. COORD: without dysmetria on FNF. Normal Romberg. GAIT: normal, including tandem gait. A/P: 18 yo female with psoriatic arthritis, uveitis treated with immunomodulator therapy, presenting with 2 week headache history now resolved. MRI report demonstrates pineal cyst. Physical exam otherwise normal. has Uveitis; Spondylolysis of lumbar region; and Psoriasis on her problem list. Reviewed MRI report with family. Recommend repeat imaging with contrast after removal of braces in 6 months, or sooner with any symptoms recurrence or new symptoms. Discussed normal neuro exam with exception of baseline anisecoria attributed to uveitis. Unclear of etiology of headache, though unlikely related to pineal cyst. Reviewed headache hygeine recommendations for at least 9 hours of sleep nightly, avoidance of regular caffeine intake, limitation of kabo-jdm-heidyhq medications to twice weekly and identification of dietary triggers. Discussed abortive treament options, recommend review with rheumatology for discussion of potential drug interactions (tylenol vs. NSAID) in light of her baseline drug regimen. Also encouraged behavioral health evaluation for stress or mood disorder as headache trigger, also tied to her chronic pain. Offered pain management consult, but decline by family at this time. Suggested discussion with PCP regarding weight loss and bowel regimen in light of stated constipation. Follow-up requested in 6 months to discuss interval imaging or sooner with any progression in symptom frequency, severity, or new symptoms of neurologic deficits. Reviewed indications to return for interval imaging sooner than 6 months. Gave informative handouts and headache diary. Family is happy with this plan and denies additional questions and concerns. At least 35 minutes of this hour long outpatient visit were spent discussing the diagnosis and recommendations as outlined above. Cc: SANTOSH BACA MD documented in this encounter Plan of Treatment Scheduled Referrals Name Type Priority Associated Diagnoses Order Schedule Referral to Child and Adolescent Psychiatry Outpatient Referral Routine Psoriasis Uveitis Spondylolysis of lumbar region Ordered: 04/12/2013 documented as of this encounter Visit Diagnoses Diagnosis Psoriasis- Primary Other psoriasis Uveitis Unspecified iridocyclitis Spondylolysis of lumbar region Acquired spondylolisthesis Headache(784.0) Headache Chronic pain Other chronic pain documented in this encounter Care Teams News Internship Relationship Specialty Start Date End Date Santosh Baca MD [facility] [place] [address] PCP - General 02/08/13 07/08/21 documented as of this encounter
--- OUTSIDE RECORDS SUMMARY | 2024-08-21 14:12 | XMS_ITS | Encounter Summary ---
Author Organization [facility] Address [facility] [place] [address] Care Team Providers Care Anthropology Professor Name Role Phone Santosh Saldivar MD Primary Care Provider [phone] Reason for Visit * Reason Comments Uveitis Encounter Details Date Type Department Care Team (Late st Contact Info) Description 02/08/2013 4:00 PM EDT Office Visit [facility] [address] [place] [address] Thong Perez MD [facility] [place] [address] JRA (juvenile rheumatoid arthritis) (Primary Dx); Uveitis Discharge Disposition: Home Social History Tobacco Use [...] Sign Reading Time Taken Comments Blood Pressure 104/76 02/08/2013 4:09 PM EDT Pulse - - Temperature - - Respiratory Rate - - Oxygen Saturation - - Inhaled Oxygen Concentration - - Weight 55 kg (121 lb 4.1 oz) 02/08/2013 4:09 PM EDT Height - - Body Mass Index - - documented in this encounter Progress Notes * Thong Perez MD - 02/08/2013 4:41 PM EDT Rheumatology Outpatient Progress Note Problem [...] Running 5 miles a day and playing lacrosse Restarted remicasde because she thought it was better for arthritis and had first infusion of 300mgw/o problem no real results but does like it better In the interim had shingles but no post herpetic neuralgia ROS: General (-)fevers, (-)chills, (-)night sweats, (-)wt [...] Outpatient Prescriptions Medication Sig Dispense Refill ??? methotrexate 2.5 mg tablet Take 6 tablets by mouth once a week. When stomach is empty, 2 hours after eating and do not eat for 1 hour. Labs due in 3 months. 72 tablet 3 ??? UNKNOWN TO PATIENT daily. ??? DISCONTD: methotrexate 2.5 mg tablet Take 6 tablets by mouth once a week. When stomach is empty, 2 hours after eating and do not eat for 1 hour. Labs due in 3 months. 72 tablet 3 ??? tacrolimus (PROTOPIC) 0.1 % ointment ??? inFLIXimab (REMICADE) 100 mg injection Inject 40 mLs into the vein every 28 days. 1 each 6 ??? folic acid (FOLVITE) 1 mg tablet Take 1 tablet by mouth daily. 30 tablet 5 ??? diclofenac (VOLTAREN) 75 mg EC tablet Take 1 tablet by mouth 2 times daily. 30 tablet 3 Allergies Allergen Reactions ??? Clindamycin Hives ??? Penicillins Nausea And Vomiting Physical Exam: BP 104/76 Wt 55 kg (121 lb 4.1 oz) General: AAOx3, NAD, pleasant HEENT: PERRL, Mucous membranes are moist, no oral mucosal ulcerations, temporal artery palpable Neck: Supple, no lymphadenopathy, full range of motion. Cardiovascular: RR, (-)murmurs, rubs, or gallops. Lungs: Clear to auscultation bilaterally, (-)R/R/W Abdomen: Soft, nontender, nondistended, normal active bowel sounds, no hepatosplenomegaly. Back: Nontender over the spine and costovertebral angles bilaterally.Tender but probably squemish Neuro: Alert and oriented x3. Cranial nerves [...] no swelling Feet: no MTP compression tenderness + Achilles tendonitis Labs: ok in october pending from today Assessment: Orlando Bearden is a 17 y.o. female who returns in follow up of spondylo with uveiis psoriasis and enthesititis Plan: remicade 400mg next week then 400mg q 4 weeks Same mtx Will get laser for eye re catarract surgery RTC 3m documented in this encounter Procedure Notes * Provider, Scanning - 03/19/2014 1:52 PM EDTAssociated Order(s): SCAN DOC: ORDS - PROVIDER CARE documented in this encounter Plan of Treatment Not on file documented as of this encounter Procedures Procedure Name Priority Date/Time Associated Diagnosis Comments ORDS - PROVIDER CARE SCAN 03/19/2014 1:52 PM EDT CMP W/FASTING GLUCOSE Routine 02/08/2013 4:52 PM EDT JRA (juvenile rheumatoid arthritis) DIFFERENTIAL, AUTOMATED Routine 02/08/2013 4:52 PM EDT SEDIMENTATION RATE Routine 02/08/2013 4: 52 PM EDT JRA (juvenile rheumatoid arthritis) CBC (WITH DIFF) Routine 02/08/2013 4:52 PM EDT JRA (juvenile rheumatoid arthritis) CRP, CARDIAC RISK (HS CRP) Routine 02/08/2013 4:52 PM EDT JRA (juvenile rheumatoid arthritis) documented in this encounter Results * SCAN DOC: ORDS - PROVIDER CARE (03/19/2014 1:52 PM EDT) Narrative 03/19/2014 1:52 PM EDT Procedure Note Provider, Scanning - 03/19/2014 1:52 PM EDT Scanning Provider MEDIA MGR SCAN EXT O RDR/RSLT * Differential, Automated (02/08/2013 4:52 PM EDT) Neutrophil % 54.2 37.0 - 77.0 % CERNER MILLENNIUM Neutrophil Absolute 4.92 1.50 - 8.00 x10(3)/mcL CERNER MILLENNIUM Lymph % 38.9 20.0 - 50.0 % CERNER MILLENNIUM Lymphocytes Abs 3.5 1.2 - 5.2 x10(3)/mcL CERNER MILLENNIUM Monocyte % 4.7 2.0 - 12.0 % CERNER MILLENNIUM Monocyte Abs 0.4 0.2 - 1.0 x10(3)/mcL CERNER MILLENNIUM Eos % 1.7 0.0 - 7.0 % CERNER MILLENNIUM Eosinophils Abs 0.2 0.0 - 0.5 x10(3)/mcL CERNER MILLENNIUM Basophil [...] differential will be performed. Immature Gran Absolute 0.02 0.00 - 0.05 x10(3)/mcL CERNER MILLENNIUM Blood specimen (specimen) 02/08/2013 4:52 PM EDT 02/08/2013 4:56 PM EDT Thong Perez MD HEMATOLOGY ORDERABLE S SHAHZAD MONSIVAIS * High Sensitivity CRP (02/08/2013 4:52 PM EDT) C-Reactive Protein High Sensitivity 0.8 mg/L CERNER MILLENNIUM Comment: Interpretations: 1) For cardiac risk assessment, [...] prevention. ??Circulation 2003; [phone] Blood specimen (specimen) 02/08/2013 4:52 PM EDT 02/08/2013 4:56 PM EDT Narrative Resulting Agency Comment Spec In Lab Thong Perez MD CHEMISTRY ORDERABLES Performing Organization Address [facility] Co de Phone Number [facility] * Sedimentation rate (02/08/2013 4:52 PM EDT) Sedimentation Rate Automated 12 0 - 20 mm/hr [facility] Blood specimen (specimen) 02/08/2013 4:52 PM EDT 02/08/2013 4:56 PM EDT Narrative Resulting Agency Comment Spec In Lab Thong Perez MD HEMATOLOGY ORDERABLE S Performing Organization Address [facility] Co de Phone Number [facility] * (ABNORMAL) CMP w/fasting Glucose (02/08/2013 4:52 PM EDT) Glucose Fasting 85 65 - 99 mg/dL [facility] Comment: ?Fasting* Glucose Interpretive Criteria Normal ?65-99 mg/dL Impaired Fasting glucose ?100-125 mg/dL Consistent with Diabetes Mellitus ? >or= 126 mg/dL *Fasting is defined as no caloric intake for at least 8 hours In the absence of unequivocal hyperglycemia a plasma glucose value of >or= 126 mg/dL should be repeated on a subsequent day. Diagnosis and Classification of Diabetes Mellitus, Position Statement from the [place] [employer]. ??Diabetes Care, Volume 33, Supplement 1, Aug 2009 Blood Urea Nitrogen 13 10 - 20 mg/dL CERNER MILLENNIUM Creatinine 0.80(H) 0.20 - 0.70 mg/dL CERNER MILLENNIUM Comment: Please note that the pediatric reference intervals supplied above were not validated at [facility]. Results from pediatric patients should be interpreted in conjunction to the patient's age, height and muscle mass. Sodium 137 135 - 145 mmol/L CERNER MILLENNIUM Potassium 3.9 3.5 - 5.0 mmol/L CERNER MILLENNIUM Comment: Please note: ??Patients with WBC >100,000 may have falsely elevated Potassium levels. ??For accurate Potassium quantification in these patients send serum separator tube (gold top) for subsequent determinations. ??Contact the Clinical Chemistry Laboratory if there are any questions. Chloride 99 98 - 107 mmol/L CERNER MILLENNIUM Carbon Dioxide 25 22 - 31 mmol/L CERNER MILLENNIUM Anion Gap 13 5 - 15 mmol/L CERNER MILLENNIUM Calcium 9.0 8.5 - 10.5 mg/dL CERNER MILLENNIUM Protein, Total 7.7 6.4 - 8.3 gm/dL CERNER MILLENNIUM Albumin 4.6 3.2 - 5.2 gm/dL CERNER MILLENNIUM Aspartate Aminotransferase 20 5 - 30 unit/L CERNER MILLENNIUM Alanine Aminotransferase 11 0 - 25 unit/L CERNER MILLENNIUM Alkaline Phosphatase 41(L) 55 - 140 unit/L CERNER MILLENNIUM Bilirubin, Total 0.3 <=1.0 mg/dL CERNER MILLENNIUM Bilirubin, Direct 0.1 0.0 - 0.3 mg/dL CERNER MILLENNIUM Est Glomerular Filtration Rate See note >=60 CERNER MILLENNIUM Comment: Calculated GFR not appropriate for patients less than 18 years of age. This estimated GFR (eGFR) value was calculated using the MDRD equation which has been validated on patients between the ages of 18 and 70. The MDRD should not be used to assess kidney function in patients < 18 years of age or in patients with extremes of body mass, or in patients with acute kidney failure. This value should be multiplied by 1.2 for patients. For further information please copy and paste the following links into your internet browser. http://www.nkdep.nih.gov/lab-evaluation.shtml http://www.kidney.org/professionals/ Blood specimen (specimen) 02/08/2013 4:52 PM EDT 02/08/2013 4:56 PM EDT Narrative Resulting Agency Comment Spec In Lab Thong Perez MD CHEMISTRY ORDERABLES CERNER MILLENNIUM * (ABNORMAL) CBC (with Diff) (02/08/2013 4:52 PM EDT) White Blood Cell 9.1 4.5 - 13.0 x10(3)/mc L CERNER MILLENNIUM Red Blood Cell 4.05(L) 4.10 - 5.10 x10(6)/mc L CERNER MILLENNIUM Hemoglobin 12.4 12.0 - 16.0 gm/dL CERNER MILLENNIUM Hematocrit 38.5 36.0 - 46.0 % CERNER MILLENNIUM Mean Cell Volume 95.1 76.0 - 98.0 fL CERNER MILLENNIUM Mean Cell Hemoglobin 30.6 25.0 - 35.0 pg CERNER MILLENNIUM Mean Cell Hemoglobin Concentration 32.2 32.0 - 36.5 gm/dL CERNER MILLENNIUM Platelet 323 145 - 370 x10(3)/mc L CERNER MILLENNIUM RDW Standard Deviation 45.5 35.0 - 46.0 fL CERNER MILLENNIUM RDW coefficient of variation 13.0 10.9 - 14.4 % CERNER MILLENNIUM Mean Platelet Volume 9.1 9.0 - 12.0 fL CERNER MILLENNIUM Blood specimen (specimen) 02/08/2013 4:52 PM EDT 02/08/2013 4:56 PM EDT Narrative Resulting Agency Comment Spec In Lab Thong Perez MD HEMATOLOGY ORDERABLE S [facility] documented in this encounter Visit Diagnoses Diagnosis JRA (juvenile rheumatoid arthritis)- Primary Polyarticular juvenile rheumatoid arthritis, chronic or unspecified Uveitis Unspecified iridocyclitis documented in this encounter Care Teams Anthropology Professor Relationship Specialty Start Date End Date Santosh Saldivar MD [address] [place] [address] PCP - General 02/08/13 07/08/21 documented as of this encounter
--- OUTSIDE RECORDS SUMMARY | 2024-08-21 14:12 | XMS_ITS | Encounter Summary ---
Author Organization [facility] Address [facility] [place] [address] Care Team Providers Care Atmospheric Physics Professor Name Role Phone Freeman Herrera MD Primary Care Provider [phone] Reason for Visit * Reason Comments Travel Consult Encounter Details Date Type Department Care Team ([facility] st Contact Info) Description 11/03/2012 1:30 PM EST Office [place] [address] Jose Moore RN Foreign travel (Primary Dx) Discharge Disposition: Home Social History [...] Sign Reading Time Taken Comments Blood Pressure 113/63 11/03/2012 1:19 PM EST Pulse 56 11/03/2012 1:19 PM EST Temperature 36.4 ??C (97.5 ??F) 11/03/2012 1:19 PM ES T Respiratory Rate 16 11/03/2012 1:19 PM EST Oxygen Saturation - - Inhaled Oxygen Concentration - - Weight 57.2 kg (126 lb) 11/03/2012 1:19 PM EST Height - - Body Mass Index - - documented in this encounter Patient Instructions * Patient Instructions* Jose Moore RN - 11/03/2012 2:06 PM EST Today, you received the following vaccines: [x] Flu shot (recommended annually) [] TDaP (good for 10 years) [] Td (good for 10 years) [x] Hepatitis A* (first dose good for 6 months, need a booster anytime after 6 months) [] Hepatitis B* (series is a total of 3) [] IPV (polio - this is your adult lifetime booster) [] Meningococcal meningitis [] Pneumococcal [] Rabies* (series is a total of 3, Day 1, Day 7, and Day 21) [] Yellow fever (good for 10 yrs. Keep your yellow card w/ you when traveling as proof) [] Palauan Encephalitis* (series of 2, Day 1 and Day 28) [] Typhoid IM (good for 2-3 years) [] Typhoid oral (Take 1 capsule every other day on am empty stomach x 4 doses. Keep in fridge. Goodfor 5 years) *Please remember to schedule your follow-up boosters, if indicated. Call us at [phone] to schedule an appointment for these vaccines. No malaria prophylaxis needed Today, you were also prescribed a medication for malaria prevention. [] Malarone - Start taking 1 day prior to travel to malaria risk area. Take daily while there and for 7 more additional days thereafter. Take this medication with food. [] Mefloquine or Chloroquine - Start 1 week prior to travel to a malaria risk area. Take once weekly while there and for 4 additional weeks thereafter. [] Doxycycline - Start 1 day prior to travel to malaria risk area. Take daily while there and for 28 additional days thereafter. Additional Recommendations/Instructions: We recommend a tuberculin skin test (TST) to screen for tuberculosis exposure about 2 - 3 months after your trip. Call us at [phone] to book this upon your return. Have a great trip! documented in this encounter Progress Notes * Jose Moore RN - 11/03/2012 1:31 PM EST Adult Travel Clinic Reason for Visit: Orlando Bearden is a 17 y.o. old patient who comes to travel clinic today for pre-travel evaluation, vaccination and traveler's health education. Orlando's mother present for entire travel visit. Trip Details: Destination countries (list from first to last):[facility]; [facility] Departure date: 02/18/2013 Length of trip: 10 days Purpose of travel: vacation Type of environment (urban or rural):rural Accommodations:renting house Medical History: Medical problems: Uveitis, psoriatic arthritis, psoriasis Immunosuppression: No recent steroid use; chemotherapy or other immunosuppresion- methotrexate and .Xochilt History of adverse vaccine reactions: None. History of latex allergy: None. Not or . Medications: Current Outpatient Prescriptions Medication Sig Dispense Refill ??? Adalimumab (HUMIRA PEN) 40 mg/0.8 mL PnKt Inject 40 mg subcutaneously every 14 days. 4 kit 6 ??? UNKNOWN TO PATIENT daily. ??? methotrexate 2.5 mg tablet Take [...] ??? tacrolimus (PROTOPIC) 0.1 % ointment ??? DISCONTD: NAPROXEN ORAL Take by mouth 2 times daily. ??? DISCONTD: inFLIXimab (REMICADE) 100 mg injection 300 mg, IV, as directed,before meals ??? DISCONTD: betamethasone dipropionate (DIPROLENE) 0.05 % cream 1 Appl(s) Top as directed Allergies: Clindamycin and Penicillins Patient advised to carry all medications in carry on luggage. Travel Health and Safety Issues: A discussion of travel health hazards and safety issues was done, including the following topics: (x) Traffic-accidents (alcohol, seatbelts) (x) Crime (x) Alcohol related issues (x) Sun exposure/heat illness (x) Schistosomiasis and other fresh water exposures (x) Rabies (x) HIV infections, Hepatitis (x) TB (x) Health insurance coverage/[employer] ([x) Other: embassy information Discussed food and water precautions and patient handout provided. The following strategies were recommended for the management of traveler's diarrhea according to severity: For treatment of mild diarrhea: hydration and over the counter antidiarrheal recommended. For treatment of diarrhea accompanied by fever or systemic illness: hydration and empiric treatmentwith antibiotic recommended. A [facility] for cipro, twice daily for three days[facility]. For severe or bloody diarrhea, or diarrhea accompanied by vomiting: patient advised to seek medicaltreatment. Vector-borne Disease Prevention Discussed insect bite prevention to reduce risk of malaria, dengue and other insect borne illnesses. Handout given. Malaria Risk:. (x) Malaria risk in country(ies)visited, but not high enough risk on this itinerary to warrant chemoprophylaxis. Altitude: (x) This trip does not involve high altitude. Follow-up Recommendations: A recommendation was made that the patient have a tst placed about 3 months after returning from this trip. The patient may either call the travel clinic or get this done through their primary reservoir caretaker. Patient advised to call travel clinic if they return from trip with any illness. Time spent in travel counselin min Note written by JOSE MOORE RN Travel Clinic Immunization History and Orders Immunizations Last dose Give today Give at future date Tetanus/diphtheria (0.5 ml IM) Tdap 04/23/2008 MMR (0.5 ml IM) Two doses Polio (0.5 ml SC) Primary series Hepatitis A (Adult-1.0 ml IM) (Pedi-0.5 ml IM) 1. 11/03/2012 2. 1. 2. 6 mo to one year Immune serum globulin (specify route/dose) Hepatitis B (adult-1 ml IM X 3) (pedi-0.5 ml IM X 3) Three doses 1. 2. 3. 1. 2. 3. Twinrix (Hep A/B) (1.0 ml IM) 1. 2. 3. 1. 2. 3. Typhoid (specify route/dose) Refused IM typhoid Yellow fever (0.5 ml IM) Meningococcal (0.5 ml IM) 04/23/2008 Rabies (specify type/dose) 1.discussed actions to take if exposed 2. 3. 1. 2. 3. Palauan Encephalitis 1. 2. 3. 1. 2. 3. Influenza (0.5 ml IM) 11/03/2012 Pneumovax (0.5 ml IM) Other: PPD (Mantoux) (0.1 ml ID) Vaccine information sheets given. ID ATTENDING I agree with this plan to prepare this immunocompromised patient for travel to [facility]. Komal Houser MD Page [phone] documented in this encounter Plan of Treatment Not on file documented as of this encounter Visit Diagnoses Diagnosis Foreign travel- Primary Other specified conditions influencing health status documented in this encounter Care Teams Atmospheric Physics Professor Relationship Specialty Start Date End Date Freeman Herrera MD [address] [place] [address] PCP - General 07/22/10 02/07/13 documented as of this encounter
--- OUTSIDE RECORDS SUMMARY | 2024-08-21 14:12 | XMS_ITS | Encounter Summary ---
Author Organization [facility] [place] [address] Care Team Providers Care Help Desk Manager Name Role Phone Freeman Herrera MD Primary Care Provider [phone] Encounter Details Date Type Department Care Team (Late Contact Info) Description 05/04/2012 Telephone Pediatric Rheumatology at [facility] [place] [address] Trupti Sanabria, RN Social History Tobacco Use Types Packs/Day [...] Telephone Encounter - Trupti Sanabria RN - 05/04/2012 2:43 PM EDT Pt's mom asking for time and date of Orlando's next appt. She also needs MTX refilled. Reached mom at home. Orlando needs new MTX script. Her pharmacy has not had trouble getting the tabs as of yet. We'll call it in to her local pharmacy. Per mom, Orlando is also due for her infusions which she gets in [facility]. They used to be every 8 weeks and then they tried going out to every 10 weeks without success. She wants to go back to the every 8week infusions. Mom will call the infusion suite to see if she can get her scheduled for every 8 weeks again and will call us if she has problems. We'll cancel the infusions scheduled for [facility]. documented in this encounter Plan of Treatment Not on file documented as of this encounter Visit Diagnoses Not on filedocumented in this encounter Care Teams Help Desk Manager Relationship Specialty Start Date End Date Freeman Herrera MD [address] [place] [address] PCP - General 07/22/10 02/07/13 documented as of this encounter
--- OUTSIDE RECORDS SUMMARY | 2024-08-21 14:12 | XMS_ITS | Encounter Summary ---
Author Organization [facility] Address [facility] [place] [address] Care Team Providers Care New Car Sales Manager Name Role Phone Santosh Saldivar MD Primary Care Provider [phone] Encounter Details Date Type Department Care Team (Latest Contact Info) Description 09/05/2013 10:46 AM EST - 09/05/2013 11:59 PM EST Hospital En[place] [id number] CLINIC, Thong Durbin MD [facility] [place] [address] Abdominal pain, other specified site Discharge Disposition: Home Social History Tobacco Use [...] Sig Dispensed Refills Start Date End Date inFLIXimab (REMICADE) 100 mg injectionIndications:JR A (juvenile rheumatoid arthritis) Inject 40 mLs into the vein every 28 days. 1 each 6 02/08/2013 folic acid (FOLVITE) 1 mg tabletIndications:JRA (juvenile rheumatoid arthritis) Take 1 tablet by mouth daily. 30 tablet 5 02/08/2013 tacrolimus (PROTOPIC) 0.1 % ointment 08/06/2010 methotrexate 2.5 mg tabletIndications:Uveit is Take 6 tablets by mouth once a week. When stomach is empty, 2 hours after eating and do not eat for 1 hour. Labs due in 3 months. 72 tablet 3 02/08/2013 12/07/2013 UNKNOWN TO PATIENT daily. 4 documented as of this encounter Plan of Treatment Not on file documented as of this encounter Procedures Procedure Name Priority Date/Time Associated Diagnosis Comments US ABDOMEN COMPLETE Routine 09/05/2013 1 1:28 AM EST Abdominal pain, other specified site documented in this encounter Results * US abdomen complete (09/05/2013 11:28 AM EST) Anatomical Region Laterality Modality Abdomen, Vascular Ultrasound 09/05/2013 11:2 8 AM EST Narrative 09/05/2013 11:33 AM EST ?Pediatric Abdomen ? (Signed Final 09/05/2013 11:31 am) Patient Info ID: ? [id number] ? : ??[birth year] (18 yrs) Name: ? CORNEL W KEN ?Visit Date: 09/05/2013 11:24 am Performed By Performed By: ?Mercedes Street RDMS Attending: ? Landry Callaway MD Referred By: ? THONG PEREZ MD Service(s) Provided [facility] - Abdominal Complete Survey - [id number] ? [id number] Indications RLQ pain and constipation; R/O CHRONES [...] Final 09/05/2013 11:31 am) Patient Info ID: [id number] : [birth year] (18 yrs) Name: CORNEL BEARDEN Visit Date: 09/05/2013 11:24 am Performed By Performed By: Mercedes Street RDMS Attending: Landry Callaway MD Referred By: THONG PEREZ MD Service(s) Provided [facility] - Abdominal Complete Survey - [phone] Indications RLQ pain and constipation; R/O CHRONES [...] Visit Diagnoses Diagnosis Abdominal pain, other specified site documented in this encounter Care Teams New Car Sales Manager Relationship Specialty Start Date End Date Santosh Saldivar MD [address] [place] [address] [address] [place] [address] PCP - General 02/08/13 07/08/21 documented as of this encounter
--- OUTSIDE RECORDS SUMMARY | 2024-08-21 14:12 | XMS_ITS | Encounter Summary ---
Author Organization [facility] [place] [address] Care Team Providers Care Certification Technician Name Role Phone Santosh Saldivar MD Primary Care Provider [phone] Encounter Details Date Type Department Care Team (Latest Contact Info) Description 07/24/2020 10:48 PM EST - 07/24/2020 11:59 PM EST [place] [phone] Discharge Disposition: Home Social History Tobacco Use [...] Sig Dispensed Refills Start Date End Date methotrexate 2.5 mg tabletIndications:Uveiti s Take 6 tablets by mouth once a week. When stomach is empty, 2 hours after eating and do not eat for 1 hour. 72 tablet 3 12/07/2013 NORETHINDRONE A-E ESTRADIOL (MICROGESTIN 09/18, 21, ORAL) daily. 09/11/2013 inFLIXimab (REMICADE) 100 mg injectionIndications:JRA (juvenile rheumatoid arthritis) Inject 40 mLs into the vein every 28 days. 1 each 6 02/08/2013 folic acid (FOLVITE) 1 mg tabletIndications:JRA (juvenile rheumatoid arthritis) Take 1 tablet by mouth daily. 30 tablet 5 02/08/2013 tacrolimus (PROTOPIC) 0.1 % ointment 08/06/2010 documented as of this encounter Plan of Treatment Not on file documented as of this encounter Procedures Procedure Name Priority Date/Time Associated Diagnosis Comments COVID-19 PCR Routine 07/24/2020 3:05 PM EST documented in this encounter Results * COVID-19 PCR (07/24/2020 3:05 PM EST) SARS-CoV-2 RNA Not Detected Not Detected [facility] Comment: This result should be interpreted in combination with the clinical observations, patient history and epidemiological information. For testing of asymptomatic individuals, assay performance characteristics and clinical utility have not been evaluated. Testing for SARS-CoV-2 (Severe acute respiratory syndrome coronavirus 2, formerly known as 2019 novel coronavirus or 2019-nCoV) to aid in the diagnosis of COVID-19 is performed using the Aptima SARS Co-V-2 Assay on the Senior Moments System (Instinctiv.) as authorized by the FDA issued Emergency Use Authorization (EUA). This assay is intended for In-vitro Diagnostic (IVD) use with nasopharyngeal swabs collected from individuals meeting the CDC criteria for testing. The assay is performed based on the instructions for use and additional guidance provided by the FDA. Testing is performed in the Microbiology Laboratory within the Department of Pathology and Laboratory Medicine at [facility], certified under the Clinical Laboratory Improvement Amendments of 1988 (CLIA), 42 U.S.C. section 263a, to perform high-complexity tests. Assay performance has been verified according to clinical laboratory regulatory requirements. Test results are provided above. A result of Not Detected indicates that the viral RNA target is not present but does not preclude SARS-CoV-2 infection. False negative results may occur if a specimen is improperly collected, transported or handled; if amplification inhibitors are present; or if inadequate numbers of viral particles are present in the specimen. A result of Detected suggests a current or recent infection and the patient is presumed to be infected. Positive and negative predictive values for this test are highly dependent on disease prevalence. A result of Invalid indicates the inability to conclusively determine the presence or absence of SARS-CoV-2 RNA in the sample which can be due to a variety of factors. ??Collection of a new sample for repeat testing is recommended in the case of an invalid result. CDC COVID-19 criteria for testing on human specimens and clinical management guidance information are available at the CDC Coronavirus Disease 2019 (COVID-19) webpage under Information for Healthcare Professionals (https://www.cdc.gov/coronavirus/2019-ncov/hcp/index.html). SARS-CoV-2 RNA Source HEAVY MEDIA OPERATOR Swab [facility] Nasopharyngeal swab (specimen) Other / Unknown 07/24/2020 3:05 PM EST 07/25/2020 3:57 AM EST Narrative Resulting Agency Comment Spec In Lab Sveta Larsen A P SUPERVISOR MOLECULAR ORDERAB LES [facility] [place] [phone] documented in this encounter Visit Diagnoses Not on filedocumented in this encounter Care Teams Certification Technician Relationship Specialty Start Date End Date Santosh Saldivar MD [address] [place] [address] PCP - General 02/08/13 07/08/21 documented as of this encounter
--- OUTSIDE RECORDS SUMMARY | 2024-08-21 14:12 | XMS_ITS | Encounter Summary ---
[place] [address] Care Team Providers Care Quality Assurance Intern Name Role Phone Freeman Herrera MD Primary Care Provider [phone] Reason for Visit * Reason Onset Date Comments Letter for School/Work 07/07/2012 Encounter Details Date Type Department Care Team ([facility] Contact Info) Description 07/07/2012 [place] [address] Trupti Sanabria RN Letter for School/Work Social History Tobacco Use Types Packs/Day Years [...] Telephone Encounter - Trupti Sanabria RN - 07/18/2012 11:58 AM EST This nurse called both numbers again but no answer. The letter and office note will be mailed to pt's home address today. * Telephone Encounter - Gisele Vance LPN - 07/12/2012 9:15 AM EST Attempted to call Dad's cell number for school information to fax letter, left detailed msg asking for just a msg on the school info or fax number. * Telephone Encounter - Trupti Sanabria RN - 07/08/2012 9:46 AM EST Letter finished today, have not heard back from Dad regarding contact info. Called Dad's cell asking that he callback with Orlando's [facility] fax number. * Telephone Encounter - Trupti Sanabria RN - 07/07/2012 2:56 PM EST Dad has called back. He asks that we send an office note to the [facility] for Orlando's meeting. Dad didnot expect that the statement had to be anything in particular. He did not give fax or other contact info however. Did call dad back and asked that he provide this info and we can fax the office note. * Telephone Encounter - Trupti Sanabria RN - 07/07/2012 9:28 AM EST This nurse did speak with Dr Leona Perez who states that Orlando has no limitations to her day and can partake in activities as tolerated. * Telephone Encounter - Trupti Sanabria RN - 07/07/2012 8:21 AM EST Attempted to reach dad back, called his cell but just got voicemail, left msg there. Called home number but the msg states this is Yulisa. Did not leave a msg there. * Telephone Encounter - Trupti Sanabria RN - 07/07/2012 8:19 AM EST Dad called late yesterday afternoon asking for a statement from the doctor regarding his daughter'shealth, diagnosis, limitations etc. He needs it by Wednesday for a meeting. documented in this encounter Plan of Treatment Not on file documented as of this encounter Visit Diagnoses Not on filedocumented in this encounter Care Teams Quality Assurance Intern Relationship Specialty Start Date End Date Freeman Herrera MD [address] [place] [address] PCP - General 07/22/10 02/07/13 documented as of this encounter
--- OUTSIDE RECORDS SUMMARY | 2024-08-21 14:12 | XMS_ITS | Encounter Summary ---
Author Organization [facility] Address [facility] [place] [address] Care Team Providers Care Roll Hand Name Role Phone Santosh Saldivar MD Primary Care Provider [phone] Encounter Details Date Type Department Care Team (Late st Contact Info) Description 04/01/2013 External Results XRay at [address] [place] [id number] Provider, Scanning Social History Tobacco Use Types Packs/Day Years [...] Procedure Name Priority Date/Time Associated Diagnosis Comments MRI/MRA SCAN Routine 03/21/2013 documented in this encounter Results * Scan Doc: MRI/MRA (03/21/2013) Anatomical Region Laterality Modality Other Scanning Provider MEDIA MGR SCAN EXT O RDR/RSLT documented in this encounter Visit Diagnoses Not on filedocumented in this encounter Care Teams Roll Hand Relationship Specialty Start Date End Date Santosh Saldivar MD [address] [place] [address] [address] [place] [address] PCP - General 02/08/13 07/08/21 documented as of this encounter
--- OUTSIDE RECORDS SUMMARY | 2024-08-21 14:12 | XMS_ITS | Encounter Summary ---
[place] [address] Care Team Providers Care Inspector Name Role Phone Freeman Herrera MD Primary Care Provider [phone] Reason for Visit * Reason Onset Date Comments Results 09/24/2011 Encounter Details Date Type Department Care Team ([facility] st Contact Info) Description 09/24/2011 Telephone [place] [address] Damaris Murphy MD Results Social History Tobacco Use Types Packs/Day [...] encounter Miscellaneous Notes * Telephone Encounter - Damaris Murphy MD - 09/24/2011 3:36 PM EST I called to give orlando's lab results. I got voice mail on Mrs. Bearden's cell phone. I left a message that all results were good and to call with questions. documented in this encounter Plan of Treatment Not on file documented as of this encounter Visit Diagnoses Not on filedocumented in this encounter Care Teams Inspector Relationship Specialty Start Date End Date Freeman Herrera MD [address] [place] [address] PCP - General 07/22/10 02/07/13 documented as of this encounter
--- OUTSIDE RECORDS SUMMARY | 2024-08-21 14:12 | XMS_ITS | Encounter Summary ---
[place] [address] Care Team Providers Care Principal Technical Specialist Name Role Phone Freeman Herrera MD Primary Care Provider [phone] Reason for Visit * Reason Onset Date Comments Other 12/08/2012 remicade infusio n Encounter Details Date Type Department Care Team (Late st Contact Info) Description 12/08/2012 [place] [address] Karey Irving RN Other (remicade infusion) Social History Tobacco Use Types Packs/Day [...] Encounter - Karey Irving RN - 12/08/2012 11:55 AM EDT Called Luis Daniel back to say Orlando could have Remicade infusion and once that was started the humira could be stopped. She would continue on mtx. Told Luis Daniel that infusion order was ready to be set up. He requested it be sent to [facility], said it would be better to fax order to [facility] and they wouldget to the right person. He said Orlando would be very happy to stop the humira. documented in this encounter Plan of Treatment Not on file documented as of this encounter Visit Diagnoses Not on filedocumented in this encounter Care Teams Principal Technical Specialist Relationship Specialty Start Date End Date Freeman Herrera MD [address] [place] [address] PCP - General 07/22/10 02/07/13 documented as of this encounter
--- OUTSIDE RECORDS SUMMARY | 2024-08-21 14:12 | XMS_ITS | Encounter Summary ---
Author Organization [facility] Address [facility] [place] [address] Care Team Providers Care Injection Wax Molder Name Role Phone Freeman Herrera MD Primary Care Provider [phone] Reason for Visit * Reason Onset Date Comments Medication Refill 05/04/2012 Encounter Details Date Type Department Care Team ([facility] st Contact Info) Description 05/04/2012 Refill Pediatric [place] [address] Thong Perez MD [facility] [place] [address] Uveitis Social History Tobacco Use Types Packs/Day [...] as of this encounter Visit Diagnoses Diagnosis Uveitis Unspecified iridocyclitis documented in this encounter Care Teams Injection Wax Molder Relationship Specialty Start Date End Date Freeman Herrera MD [address] [place] [address] PCP - General 07/22/10 02/07/13 documented as of this encounter
--- OUTSIDE RECORDS SUMMARY | 2024-08-21 14:12 | XMS_ITS | Encounter Summary ---
Author Organization [facility] Address [facility] [place] [address] Care Team Providers Care Laborer Drying Department Name Role Phone Santosh Saldivar MD Primary Care Provider [phone] Reason for Visit * Reason Comments Other JRA Encounter Details Date Type Department Care Team ([facility] st Contact Info) Description 11/16/2013 1:15 PM EDT [place] [address] Thong Perez MD [facility] [place] [address] Psoriatic arthritis (Primary Dx) Discharge Disposition: Home Social History [...] 11/16/2013 1:17 PM ED T Respiratory Rate - - Oxygen Saturation 100% 11/16/2013 1:17 PM EDT Inhaled Oxygen Concentration - - Weight 58.1 kg (128 lb) 11/16/2013 1:17 PM EDT Height 167.6 cm (5' 6) 11/16/2013 1:17 PM EDT Body Mass Index 20.66 11/16/2013 1:17 PM EDT Body Mass Index Percentile 43.28% 11/16/2013 1:1 7 PM EDT Growth Chart: CDC (Girls, 2- 20 Years) documented in this encounter Progress Notes * Thong Perez MD - 11/16/2013 1:52 PM EDT Rheumatology Outpatient Progress Note Problem List Patient Active Problem List Diagnosis Date Noted ??? Constipation 09/05/2013 ??? Headache 04/12/2013 ??? Chronic pain 04/12/2013 ??? Psoriasis 06/24/2012 ??? 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 Uveitis 01/16/2011 Interval History: Orlando Bearden is a 18 y.o. female returns today for f/u of psoriatic arthritis psoriasis and uveitis ROS: General (-)fevers, (-)chills, (-)night sweats, (-)wt [...] (-)focal weakness, (-)paresthesias, (-)gait instability. Skin (-)Raynaud's, (+rashes psoriasis, (-)ulcers, (-)photo sensitivity Psych (-) mood disorder Current Outpatient Prescriptions Medication Sig Dispense Refill ??? NORETHINDRONE A-E ESTRADIOL (MICROGESTIN 09/18, , ORAL) daily. ??? inFLIXimab (REMICADE) 100 mg injection [...] tacrolimus (PROTOPIC) 0.1 % ointment ??? [DISCONTINUED] UNKNOWN TO PATIENT daily. Allergies Allergen Reactions ??? Clindamycin Hives ??? Penicillins Nausea And Vomiting Physical Exam: BP 100/62 Pulse 56 Temp 36.9 ??C (98.4 ??F) (Oral) Ht 167.6 cm (5' 6) Wt 58.06 kg (128 lb) BMI 20.67 kg/m2 SpO2 100% General: AAOx3, NAD, pleasant HEENT: PERRL, Mucous membranes are moist, no oral mucosal ulcerations, Neck: Supple, no lymphadenopathy, full range of [...] swelling Feet: no MTP compression tenderness Labs: pending Assessment: Orlando Bearden is a 18 y.o. female who returns in follow up of uveitis quiescent Plan: Same meds Check labs Go to Dr. Golden for advice on the eye disease and whether to taper meds RTC February documented in this encounter Miscellaneous Notes * Addendum Note - Mary Ann Sahu - 11/16/2013 1:59 PM EDTAddended by: MARY ANN SAHU on: 11/16/2013 01:59 PM Modules accepted: Orders documented in this encounter Plan of Treatment Not on file documented as of this encounter Procedures Procedure Name Priority Date/Time Associated Diagnosis Comments DIFFERENTIAL, AUTOMATED Routine 11/16/2013 2:05 PM EDT CBC (WITH DIFF) Routine 11/16/2013 2:05 PM EDT Psoriatic arthritis COMPREHENSIVE METABOLIC PANEL Routine 11/16/2013 2:05 PM EDT Psoriatic arthritis documented in this encounter Results * Differential, Automated (11/16/2013 2:05 PM EDT) Neutrophil % 50.1 37.0 - 77.0 % CERNER MILLENNIUM Neutrophil Absolute 3.84 1.50 - 8.00 x10(3)/mcL CERNER MILLENNIUM Lymph % 41.5 20.0 - 50.0 % CERNER MILLENNIUM Lymphocytes Abs 3.2 1.2 - 5.2 x10(3)/mcL CERNER MILLENNIUM Monocyte % 6.1 2.0 - 12.0 % CERNER MILLENNIUM Monocyte Abs 0.5 0.2 - 1.0 x10(3)/mcL CERNER MILLENNIUM Eos % 1.8 0.0 - 7.0 % CERNER MILLENNIUM Eosinophils Abs 0.1 0.0 - 0.5 x10(3)/mcL CERNER MILLENNIUM Basophil % 0.4 0.0 - 2.0 % CERNER MILLENNIUM Baso Absolute 0.0 0.0 - 0.2 x10(3)/mcL CERNER MILLENNIUM Immature Gran % 0.10 0.00 - 0.66 % CERNER MILLENNIUM Comment: Immature granulocytes(IG's)percentage and absolute count will include metamyelocytes, myelocytes, and promyelocytes. Blood smears from CBCs yielding IG's will be scanned manually for concordance. If this scan disagrees with the automated IG or if promyelocytes are noted, a manual differential will be performed. Immature Gran Absolute 0.01 0.00 - 0.05 x10(3)/mcL CERNER MILLENNIUM Blood specimen (specimen) 11/16/2013 2:05 PM EDT 11/16/2013 2:12 PM EDT Thong Perez MD HEMATOLOGY ORDERABLE S CERNER MILLENNIUM * (ABNORMAL) Comprehensive metabolic panel (non-fasting) (11/16/2013 2:05 PM EDT) [facility] Glucose 84 60 - 199 mg/dL CERNER MILLENNIUM Comment:Diabetes: >=200 mg/d L plus symptoms Blood Urea Nitrogen 8(L) 10 - 20 mg/dL CERNER MILLENNIUM Creatinine 0.69 0.20 - 0.70 mg/dL CERNER MILLENNIUM Comment: Please note that the pediatric reference intervals supplied above were not validated at [facility]. Results from pediatric patients should be interpreted in conjunction to the patient's age, height and muscle mass. Sodium 136 135 - 145 mmol/L CERNER MILLENNIUM Potassium 4.0 3.5 - 5.0 mmol/L CERNER MILLENNIUM Comment: [...] - 31 mmol/L CERNER MILLENNIUM Anion Gap 12 5 - 15 mmol/L CERNER MILLENNIUM Calcium 9.6 8.5 - 10.5 mg/dL CERNER MILLENNIUM Protein, Total 8.0 6.4 - 8.3 gm/dL CERNER MILLENNIUM Albumin 4.5 3.2 - 5.2 gm/dL CERNER MILLENNIUM Aspartate Aminotransferase 22 5 - 30 unit/L CERNER MILLENNIUM Alanine Aminotransferase 11 0 - 25 unit/L CERNER MILLENNIUM Alkaline Phosphatase 39(L) 55 - 140 unit/L CERNER MILLENNIUM Bilirubin, [...] internet browser. http://www.nkdep.nih.gov/lab-evaluation.shtml http://www.kidney.org/professionals/ Blood specimen (specimen) 11/16/2013 2:05 PM EDT 11/16/2013 2:12 PM EDT Narrative Resulting Agency Comment Spec In Lab Thong Perez MD CHEMISTRY ORDERABLES [facility] * CBC (with Diff) (11/16/2013 2:05 PM EDT) White Blood Cell 7.7 4.5 - 13.0 x10(3)/mcL CERNER MILLENNIUM Red Blood Cell 4.36 4.10 - 5.10 x10(6)/mcL CERNER MILLENNIUM Hemoglobin 13.5 12.0 - 16.0 gm/dL CERNER MILLENNIUM Hematocrit 40.5 36.0 - 46.0 % CERNER MILLENNIUM Mean Cell Volume 92.9 76.0 - 98.0 fL CERNER MILLENNIUM Mean Cell Hemoglobin 31.0 25.0 - 35.0 pg CERNER MILLENNIUM Mean Cell Hemoglobin Concentration 33.3 32.0 - 36.5 gm/dL CERNER MILLENNIUM Platelet 359 145 - 370 x10(3)/mcL CERNER MILLENNIUM RDW Standard Deviation 43.5 35.0 - 46.0 fL CERNER MILLENNIUM RDW coefficient of variation 12.7 10.9 - 14.4 % CERNER MILLENNIUM Mean Platelet Volume 9.1 9.0 - 12.0 fL CERNER MILLENNIUM Blood specimen (specimen) 11/16/2013 2:05 PM EDT 11/16/2013 2:12 PM EDT Narrative Resulting Agency Comment Spec In Lab Thong Perez MD HEMATOLOGY ORDERABLE S SHAHZAD MONSIVAIS documented in this encounter Visit Diagnoses Diagnosis Psoriatic arthritis- Primary Psoriatic arthropathy documented in this encounter Care Teams Laborer Drying Department Relationship Specialty Start Date End Date Santosh Saldivar MD [address] [address] PCP - General 02/08/13 07/08/21 documented as of this encounter
--- OUTSIDE RECORDS SUMMARY | 2024-08-21 14:12 | XMS_ITS | Encounter Summary ---
[place] [address] Care Team Providers Care Gi Tech Name Role Phone Freeman Herrera MD Primary Care Provider [phone] Reason for Visit * Reason Onset Date Comments Other 01/12/2013 questions Remica de Encounter Details Date Type Department Care Team (Late st Contact Info) Description 01/12/2013 [place] [address] Karey Irving RN Other (questions Remicade) Social History Tobacco Use Types Packs/Day [...] Telephone Encounter - Karey Irving RN - 01/12/2013 2:19 PM EDT Called Yulisa back and left message with the following information: Dose of infusion is 300 mg, interval is every 8 weeks. Explained to her close monitoring means premedicating with Tylenol and diphenhydramine, slower infusion time, more frequent assessment by nurse giving infusion. Told her Drs o n call are Dr. Diaz and Dr. Enriquez. Asked her to call with any other questions re: infusion. * Telephone Encounter - Karey Irving RN - 01/12/2013 2:11 PM EDT Orlando's mom Yulisa is calling with several questions re: Remicade infusion. She wants to know dosage and how often Orlando will receive the infusion. She is also looking for information on what closely monitored means and who the doctor certified registered nurse practitioner is for 01/16/13. documented in this encounter Plan of Treatment Not on file documented as of this encounter Visit Diagnoses Not on filedocumented in this encounter Care Teams Gi Tech Relationship Specialty Start Date End Date Freeman Herrera MD [address] [place] [address] PCP - General 07/22/10 02/07/13 documented as of this encounter
--- OUTSIDE RECORDS SUMMARY | 2024-08-21 14:12 | XMS_ITS | Encounter Summary ---
[place] [address] Care Team Providers Care Marriage And Family Social Worker Name Role Phone Santosh Saldivar MD Primary Care Provider [phone] Reason for Visit * Reason Comments IV Medication Encounter Details Date Type Department Care Team (Latest Contact Info) Description 02/15/2013 10:35 AM EDT - 02/15/2013 11:59 PM EDT Hospital En[place] [address] CLINIC, Carlita Del Valle MD [address] [place] [address] [place] [address] Uveitis (Primary Dx) Discharge Disposition: Home Social [...] Sign Reading Time Taken Comments Blood Pressure 98/54 02/15/2013 10:40 AM EDT Pulse 47 02/15/2013 10:40 AM EDT Temperature 36.6 ??C (97.9 ??F) 02/15/2013 10:40 AM E DT Respiratory Rate 14 02/15/2013 10:40 AM EDT Oxygen Saturation 100% 02/15/2013 10:40 AM EDT Inhaled Oxygen Concentration - - [...] 3 months. 72 tablet 3 02/08/2013 12/07/2013 diclofenac (VOLTAREN) 75 mg EC tabletIndications:Arthr itis Take 1 tablet by mouth 2 times daily. 30 tablet 3 11/16/2012 07/20/2013 UNKNOWN TO PATIENT daily. 4 documented as of this encounter Progress Notes * Adilia Benavides RN - 02/15/2013 11:04 AM EDT Patient Name: Orlando Bearden Patient Age: 17 y.o. Birthdate: 1995 Admit date: 02/15/2013 Attending Physician: Dr Meryl Forte MD INFUSION THERAPY ADMINISTRATION NOTE DIAGNOSIS: Uveitis REASON FOR VISIT: Remicade SUBJECTIVE: No complaints. OBJECTIVE: Last infusion on December Allergies Allergen Reactions ??? Clindamycin Hives ??? Penicillins Nausea And Vomiting LAB DATA: No results found for this or any previous visit (from the past 24 hour(s)). VITAL SIGNS BP 98/54 Pulse 47 Temp(Src) 36.6 ??C (97.9 ??F) (Oral) Resp 14 SpO2 100% IF PAIN > 5, INTERVENTION AND EFFECTIVENESS: n/a IV PLACEMENT: Peripheral IV Insertion/Assessment 02/15/13 1050 Left Hand (Active) HYDRATION, RATE, START TIME, STOP TIME NS @ KVO 1050 - not while med infusing ANTIEMETICS/PREMEDS: DOSE, ROUTE, START TIME, STOP TIME Tylenol 650 mg PO @1040 Benadryl 25 mg PO @ declines Patient identification and orders checked against actual dose given at bedside by Lluvia Benavides RN TREATMENT: DOSE, ROUTE, START TIME, STOP TIME ??? inFLIXimab (REMICADE) 400 mg in sodium chloride 0.9% 290 mL infusion 400 mg Intravenous Once ### Administration times: 1105 to 1305. REACTIONS (DESCRIPTION, TIME, INTERVENTION, EFFECTIVENESS) None. ASSESSMENT Tolerated treatment well. PLAN Return to clinic in 4 weeks on march 15, 2013. documented in this encounter Procedure Notes * Provider, Scanning - 10/06/2013 8:41 AM ESTAssociated Order(s): SCAN DOC: ORDS - PROVIDER CARE documented in this encounter Plan of Treatment Not on file documented as of this encounter Procedures Procedure Name Priority Date/Time Associated Diagnosis Comments ORDS - PROVIDER CARE SCAN 10/06/2013 8:41 AM EST documented in this encounter Results * SCAN DOC: ORDS - PROVIDER CARE (10/06/2013 8:41 AM EST) Narrative 10/06/2013 8:41 AM EST Procedure Note Provider, Scanning - 10/06/2013 8:41 AM EST Scanning Provider MEDIA MGR SCAN EXT O RDR/RSLT documented in this encounter Visit Diagnoses Diagnosis Uveitis- Primary Unspecified iridocyclitis documented in this encounter Administered Medications Inactive Administered Medications - up to 3 most recent administrations Medication Order MAR Action Action Date Dose Rate Site inFLIXimab (REMICADE) 400 mg in sodium chloride 0.9% 290 mL infusion 400 mg, Intravenous, ONCE, 1 dose, On Wed02/15/13 at 1115, Titrate rate per protocol. Use a 0.22 micron filter for administration. New Bag 02/15/2013 11:05 AM EDT 400 mg documented in this encounter Care Teams Marriage And Family Social Worker Relationship Specialty Start Date End Date Santosh Saldivar MD [address] [address] PCP - General 02/08/13 07/08/21 documented as of this encounter
--- OUTSIDE RECORDS SUMMARY | 2024-08-21 14:12 | XMS_ITS | Encounter Summary ---
[place] [address] Care Team Providers Care Talent Consultant Name Role Phone Freeman Herrera MD Primary Care Provider [phone] Reason for Visit * Reason Onset Date Comments Other 01/04/2013 rash Encounter Details Date Type Department Care Team ([facility] st Contact Info) Description 01/04/2013 [place] [phone] Karey Irving RN Other (rash) Social History Tobacco Use Types Packs/Day Years [...] Telephone Encounter - Karey Irving RN - 01/04/2013 9:07 AM EDT Should not receive either drug until infection resolved and off medications for it at least 48 h. Second she can receive either humira or remicade but we need to be very careful about remicade reaction. Dr Golden agrees ----- Message ----- From: Karey Irving RN Sent: 01/04/2013 8:36 AM To: Thong Perez MD Called Yulisa back per Dr. Perez's note above. She said Dr. Calzada did not prescribe anything more than a cream for the rash. Recommended she follow up with her about the possibility of using an antiviral med. Told her Dr. Perez and Dr. Golden had discussed the use of either the humira or remicade, but if she went with the remicade she would need to be followed closely for any reactions. Yulisa verbalized understanding of all information. * Telephone Encounter - Karey Irving RN - 01/04/2013 8:33 AM EDT Orlando's mom, Yulisa is calling because she developed a rash on the left side of her face Wednesday. She said that side swelled to soft ball size. By yesterday the swelling had come down, but she hasred scabs on that side. Yulisa took her to see Dr. Calzada, who believes Orlando has shingles. Theyhave done a test on them, the results aren't back yet. Yulisa said Orlando had a mild case of chicke n pox after receiving the vaccine, but never received the booster shot in 8th grade because it is alive vaccine. Orlando is due for her methotrexate and humira. Yulisa is wondering when it is ok to give to her. She would also like to know if Dr. Perez has spoken to Dr. Golden regarding doubling upthe humira. documented in this encounter Plan of Treatment Not on file documented as of this encounter Visit Diagnoses Not on filedocumented in this encounter Care Teams Talent Consultant Relationship Specialty Start Date End Date Freeman Herrera MD [address] [address] PCP - General 07/22/10 02/07/13 documented as of this encounter
--- OUTSIDE RECORDS SUMMARY | 2024-08-21 14:12 | XMS_ITS | Encounter Summary ---
[place] [address] Care Team Providers Care Store Director Name Role Phone Freeman Herrera MD Primary Care Provider [phone] Reason for Visit * Reason Onset Date Comments Other 01/10/2013 Remicade Encounter Details Date Type Department Care Team (Late st Contact Info) Description 01/10/2013 Telephone [place] [phone] Karey Irving RN Other (Remicade) Social History Tobacco Use Types Packs/Day [...] Telephone Encounter - Karey Irving RN - 01/10/2013 11:36 AM EDT Called Luis Daniel back and left message that order had been set up for Dr. Perez to sign for Orlando's Remicade infusion. Once signed his attendance secretary, Trupti will schedule with the infusion suite, then either Trupti or infusion would call with the date and time. Told him to call with any questions. * Telephone Encounter - Karey Irving RN - 01/10/2013 11:34 AM EDT Luis Daniel is calling to get Orlando scheduled for Remicade infusion. He would like to have her receive it here because she needs to be closely monitored for potential adverse reaction and he feels [facility] is abetter choice than his local hospital. He has requested call back with date and time. documented in this encounter Plan of Treatment Not on file documented as of this encounter Visit Diagnoses Not on filedocumented in this encounter Care Teams Store Director Relationship Specialty Start Date End Date Freeman Herrera MD [address] [place] [address] PCP - General 07/22/10 02/07/13 documented as of this encounter
--- OUTSIDE RECORDS SUMMARY | 2024-08-21 14:12 | XMS_ITS | Encounter Summary ---
[place] [address] Care Team Providers Care Special Forces Officer Name Role Phone Santosh Saldivar MD Primary Care Provider [phone] Reason for Visit * Reason Onset Date Comments Other 03/16/2013 new order for Re micade Encounter Details Date Type Department Care Team ([facility] Contact Info) Description 03/16/2013 Telephone [place] [phone] Karey Irving RN Other (new order for Remicade) Social History Tobacco Use Types [...] Telephone Encounter - Karey Irving RN - 03/16/2013 2:40 PM EDT Karen is calling because they need a new Remicade order for Orlando that states 400 mg every 4 weeks. She said Orlando's mom told them this is what it should be and Dr. Saldivar confirmed it yesterday, but they need a new order. Confirmed for her that dosage is correct and new order would be faxed today. documented in this encounter Plan of Treatment Not on file documented as of this encounter Visit Diagnoses Not on filedocumented in this encounter Care Teams Special Forces Officer Relationship Specialty Start Date End Date Santosh Saldivar MD [address] [facility] [place] [address] PCP - General 02/08/13 07/08/21 documented as of this encounter
--- OUTSIDE RECORDS SUMMARY | 2024-08-21 14:12 | XMS_ITS | Encounter Summary ---
Author Organization [facility] Address [facility] [place] [address] Care Team Providers Care Plant Technician Name Role Phone Freeman Herrera MD Primary Care Provider Reason for Visit * Reason Comments Uveitis Spondylosis, Lumbosacral Encounter Details Date Type Department Care Team ([facility] Contact Info) Description 06/24/2012 10:45 AM EDT [place] [address] Thong Perez MD [facility] [place] [address] Psoriasis (Primary Dx) Discharge Disposition: Home Social History [...] Sign Reading Time Taken Comments Blood Pressure 118/65 06/24/2012 11:05 AM EDT Pulse 50 06/24/2012 11:05 AM EDT Temperature 36.6 ??C (97.9 ??F) 06/24/2012 11:05 AM E DT Respiratory Rate - - Oxygen Saturation 98% 06/24/2012 11:05 AM EDT Inhaled Oxygen Concentration - - Weight 58.5 kg (129 lb) 06/24/2012 11:05 AM EDT Height 165.1 cm (5' 5) 06/24/2012 11:05 AM EDT Body Mass Index 21.47 06/24/2012 11:05 AM EDT Body Mass Index Percentile 60.62% 06/24/2012 11: 05 AM EDT Growth Chart: CDC (Girls, 2- 20 Years) documented in this encounter Progress Notes * Thong Perez MD - 06/24/2012 12:04 PM EDT Rheumatology Outpatient Progress Note Problem List Patient Active Problem List Diagnoses Date Noted ??? Psoriasis [696.1U] 06/24/2012 ??? Spondylolysis of lumbar region [738.4AX] 04/28/2011 ??? Uveitis [364.3D] 01/16/2011 Interval History: Orlando Bearden is a 17 y.o. female returns today for f/u of uveitis, psoriasis. Better from eye andskin standpoint on remicade 5 mg/kg Q 6 weeks. 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 Skin (-)Raynaud's, (-)rashes, (-)ulcers, (-)photo sensitivity Psych (-) mood disorder Current outpatient prescriptions Medication Sig Dispense Refill ??? UNKNOWN TO PATIENT daily. ??? methotrexate [...] 300 mg, IV, as directed,before meals ??? tacrolimus (PROTOPIC) 0.1 % ointment ??? traMADol (ULTRAM) 50 mg tablet Take 1 tablet by mouth every 6 hours as needed for Pain. 30 tablet 0 ??? betamethasone dipropionate (DIPROLENE) 0.05 % cream 1 Appl(s) Top as directed Allergies Allergen Reactions ??? Clindamycin CIS - Hives ??? Penicillins CIS - Nausea/Vomiting Physical Exam: BP 118/65 Pulse 50 Temp(Src) 36.6 ??C (97.9 ??F) (Oral) Ht 165.1 cm (5' 5) Wt 58.514 kg (129 lb) BMI 21.47 kg/m2 SpO2 98% General: AAOx3, NAD, pleasant HEENT: PERRL, Mucous [...] normal throughout. DTRs are 2+ throughout. Skin: Active psoriasis in groin Extremities Shoulders: FROM, non-tender to palpation Elbows:FROM, (-)pain, (-)nodules Wrists: Ftender wrists trimmer loader strength 11 on right 14 on left Hands: No synovitis, no MCP compression tenderness, full claw and fist. Normal nailfold capillaroscopy Hips: FROM Knees: (-)effusions, non-tender ROM Ankles: FROM, non-tender, no swelling Feet: no MTP compression tenderness but +peroneal tendonitis and plantar fasciitis from running andAchilles Tendonitis from psoriatic arthritis Vascular: Pulses are equal in all extremities. Assessment: Orlando Bearden is a 17 y.o. female who returns in follow up of psoriasis and uveitis. Still active on skin, joint and in lab Plan: increase remicade to 400 6mg/kg Continue topical to skin psoriasis PRN NSAIAs Labs next time including ANCA MARANDA Lyme and MTX labs documented in this encounter Plan of Treatment Not on file documented as of this encounter Visit Diagnoses Diagnosis Psoriasis- Primary Other psoriasis documented in this encounter Care Teams Plant Technician Relationship Specialty Start Date End Date Freeman Herrera MD [address] [place] [address] PCP - General 07/22/10 02/07/13 documented as of this encounter
--- OUTSIDE RECORDS SUMMARY | 2024-08-21 14:12 | XMS_ITS | Encounter Summary ---
[place] [address] Care Team Providers Care Nursing Coordinator Name Role Phone Santosh Saldivar MD Primary Care Provider [phone] Reason for Visit * Reason Onset Date Comments Prior Authorization 03/29/2013 MEDICATION A PPROVED Encounter Details Date Type Department Care Team ([facility] Contact Info) Description 03/29/2013 [place] [phone] Trupti Soria Prior Authorization (MEDICATION APPROVED) Social History Tobacco Use Types Packs/Day Years [...] Miscellaneous Notes * Telephone Encounter - Trupti Soria - 03/29/2013 2:04 PM EDT Medication Prior Authorization DR CARLTON Medication name/dose/directions: REMICADE/INJECT 100MG Rationale for request: JRA Health plan[place] Authorizing member service representative name: Faxed to health plan on: 03/29/13 Health plan decision: Approved Quantity approved: 4 Authorization number: Start date: 03/29/13 End date: 03/29/14 Patient notified? yes Pharmacy notified? yes documented in this encounter Plan of Treatment Not on file documented as of this encounter Visit Diagnoses Not on filedocumented in this encounter Care Teams Nursing Coordinator Relationship Specialty Start Date End Date Santosh Saldivar MD [address] [place], [place] [address] [address] PCP - General 02/08/13 07/08/21 documented as of this encounter
--- OUTSIDE RECORDS SUMMARY | 2024-08-21 14:12 | XMS_ITS | Encounter Summary ---
Author Organization [facility] [place] [address] Care Team Providers Care Psych Specialist Name Role Phone Freeman Herrera MD Primary Care Provider [phone] Encounter Details Date Type Department Care Team (Latest Contact Info) Description 12/20/2012 6:21 PM EDT - 12/20/2012 11:59 PM EDT Hospital En[place] [phone] CLINIC, Santosh Dueñas MD [address] [place] [address] Discharge Disposition: Home Social History Tobacco Use [...] 02/23/2012 02/08/2013 documented as of this encounter Plan of Treatment Not on file documented as of this encounter Procedures Procedure Name Priority Date/Time Associated Diagnosis Comments MRI THORACIC SPINE WITHOUT CONTRAST Routine 12/20/2012 7:46 PM EDT documented in this encounter Results * MRI thoracic spine without contrast (12/20/2012 7:46 PM EDT) Anatomical Region Laterality Modality T-spine Magnetic Resonan ce 12/20/2012 7:46 PM EDT [...] on filedocumented in this encounter Care Teams Psych Specialist Relationship Specialty Start Date End Date Freeman Herrera MD [address] [place] [address] PCP - General 07/22/10 02/07/13 documented as of this encounter
--- OUTSIDE RECORDS SUMMARY | 2024-08-21 14:12 | XMS_ITS | Encounter Summary ---
[place] [address] Care Team Providers Care Maintenance Planning Clerk Name Role Phone Freeman Herrera MD Primary Care Provider [phone] Reason for Visit * Reason Onset Date Comments Results 02/23/2012 Encounter Details Date Type Department Care Team ([facility] Contact Info) Description 02/23/2012 Telephone Pediatric [place] [address] Damaris Murphy MD Results Social [...] Telephone Encounter - Damaris Murphy MD - 02/23/2012 4:58 PM EDT After several tries I finally reached Mrs. Bearden. I reviewed Orlando's labs, which were all WNL. If she wants me to help facilitate the immunizations for her trip to [place], she needs to call and schedule an appointment [facility] for late February. If I know who she will be seeing, I canthen talk to them about her medications and formulate a plan, assuming she gets clearance from Dr. Golden to proceed. She said she would call right away and get the date to me. She had no questions. documented in this encounter Plan of Treatment Not on file documented as of this encounter Visit Diagnoses Not on filedocumented in this encounter Care Teams Maintenance Planning Clerk Relationship Specialty Start Date End Date Freeman Herrera MD [address] [place] [address] PCP - General 07/22/10 02/07/13 documented as of this encounter
--- OUTSIDE RECORDS SUMMARY | 2024-08-21 14:12 | XMS_ITS | Encounter Summary ---
Author Organization [facility] Address [facility] [place] [address] Care Team Providers Care Commercial Truck Driver Name Role Phone Santosh Saldivar MD Primary Care Provider [phone] Encounter Details Date Type Department Care Team (Late st Contact Info) Description 03/21/2013 Orders [place] [address] Thong Perez MD [facility] [place] [address] Social History Tobacco Use Types Packs/Day Years [...] Procedure Name Priority Date/Time Associated Diagnosis Comments FILM LIBRARY STORAGE ONLY MR HEAD AND SPINE Routine 03/21/2013 11:31 AM EDT documented in this encounter Results * Film Library- Storage only MR Head and Spine (03/21/2013 11:31 AM EDT) 03/21/2013 11:3 1 AM EDT Narrative [facility] - 04/19/2014 6:14 PM EDT This is a non-reportable exam. Procedure Note Wisam Angel - 04/19/2014 This is a non-reportable exam. Thong Perez MD [facility] FILM LIBRARY ORD ERABLES RAD [address] [place] [address] documented in this encounter Visit Diagnoses Not on filedocumented in this encounter Care Teams Commercial Truck Driver Relationship Specialty Start Date End Date Santosh Saldivar MD [address] [place] [address] [place] [address] PCP - General 02/08/13 07/08/21 documented as of this encounter
--- OUTSIDE RECORDS SUMMARY | 2024-08-21 14:12 | XMS_ITS | Encounter Summary ---
[place] [address] Care Team Providers Care Silo Painter Name Role Phone Freeman Herrera MD Primary Care Provider [phone] Reason for Visit * Reason Onset Date Comments Other 11/29/2012 medical records Encounter Details Date Type Department Care Team ([facility] Contact Info) Description 11/29/2012 Telephone [place] [phone] Karey Irving RN Other (medical records) Social History Tobacco Use Types Packs/Day Years [...] Telephone Encounter - Karey Irving RN - 11/29/2012 9:58 AM EDT Luis Daniel was calling to find out if Orlando's visit info had been shared with Dr. Golden in [place]. Recommended he contact medical records so they could fax info down. Luis Daniel verbalized understanding. documented in this encounter Plan of Treatment Not on file documented as of this encounter Visit Diagnoses Not on filedocumented in this encounter Care Teams Silo Painter Relationship Specialty Start Date End Date Freeman Herrera MD [address] [place] [address] [place] [address] PCP - General 07/22/10 02/07/13 documented as of this encounter
--- OUTSIDE RECORDS SUMMARY | 2024-08-21 14:12 | XMS_ITS | Encounter Summary ---
Author Organization [facility] Address [facility] [place] [address] Care Team Providers Care Pressure Sealer And Tester Name Role Phone Freeman Herrera MD Primary Care Provider [phone] Reason for Visit * Reason Onset Date Comments Prior Authorization 09/26/2012 HUMIRA Encounter Details Date Type Department Care Team ([facility] st Contact Info) Description 09/26/2012 Telephone [place] [address] Thong Perez MD [facility] [place] [address] Prior Authorization (HUMIRA) Social History Tobacco Use Types Packs/Day Years [...] encounter Miscellaneous Notes * Telephone Encounter - Hansel Chavez Dav - 09/26/2012 9:22 AM EST Medication Prior Authorization RHEUMATOLOGY Medication name/dose/directions: HUMIRA 40MG INJECT SQ Q EVERY 14 DAYS Rationale for request: RA Health plan: [employer] [place] ID#[id number] Authorizing outbound sales representative name: STEPHANE Faxed to health plan on: CALLED ON 09/23/12 Health plan decision: Approved Quantity approved: 10/27 Authorization number: Start date: 09/23/12 End date: 09/23/13 Patient notified? yes Pharmacy notified? yes documented in this encounter Plan of Treatment Not on file documented as of this encounter Visit Diagnoses Not on filedocumented in this encounter Care Teams Pressure Sealer And Tester Relationship Specialty Start Date End Date Freeman Herrera MD [address] [place] [address] PCP - General 07/22/10 02/07/13 documented as of this encounter
--- OUTSIDE RECORDS SUMMARY | 2024-08-21 14:12 | XMS_ITS | Encounter Summary ---
[place] [address] Care Team Providers Care Agricultural Loan Officer Name Role Phone Freeman Herrera MD Primary Care Provider [phone] Reason for Visit * Reason Onset Date Comments Prior Authorization 09/20/2012 Encounter Details Date Type Department Care Team ([facility] st Contact Info) Description 09/20/2012 Tele[place] [phone] Trupti Sanabria, technology officer Social History Tobacco Use Types Packs/Day Years [...] Telephone Encounter - Trupti Sanabria RN - 09/20/2012 4:21 PM EST Pt's father calling to check on status of Orlando's PA for her domonique. BC/BS needs PA and script. This nurse spoke with Emerald Chavez and she has received the PA form and is working on it. She does not need script at this time but will let us know when/if we need to send one. Attempted to reach dad on his cell phone but only got voicemail. Left msg indicating that Emerald Chavez is working on this and if he needs specific info on PA status he was encouraged to call her directly. documented in this encounter Plan of Treatment Not on file documented as of this encounter Visit Diagnoses Not on filedocumented in this encounter Care Teams Agricultural Loan Officer Relationship Specialty Start Date End Date Freeman Herrera MD [address] [place] [address] PCP - General 07/22/10 02/07/13 documented as of this encounter
--- OUTSIDE RECORDS SUMMARY | 2024-08-21 14:13 | XMS_ITS | Encounter Summary ---
Author Organization [facility] [place] [address] Care Team Providers Care Smash Fixer Name Role Phone Freeman Herrera MD Primary Care Provider [phone] Reason for Referral * Physical Therapy (Routine) - Complete - Patient Will Schedule External Appt Specialty Diagnoses / Procedures Referred By Contac t Referred To Contact Physical Therapy Diagnoses Spondylolysis of lumbar region Lazarus Phillips MD [facility] [place] [address] Referral ID Status Reason Start Date Expiration Date Visits Requested Visits Authorized [id number] Complete - Patient Will Schedule External Appt Evaluate and Treat 04/28/2011 10/25/2011 1 1 Reason for Visit * Reason Comments Back Pain Since 04/13/2011 Encounter Details Date Type Department Care Team (Latest Contact Info) Description 04/28/2011 1:45 PM EDT Office Visit [place] [address] Lazarus Phillips MD [facility] [place] [address] Spondylolysis of lumbar region (Primary Dx) Discharge Disposition: Home Social History [...] Sign Reading Time Taken Comments Blood Pressure 102/70 04/28/2011 1:35 PM EDT Pulse - - Temperature - - Respiratory Rate - - Oxygen Saturation - - Inhaled Oxygen Concentration - - Weight 58.6 kg (129 lb 1.6 oz) 04/28/2011 1:35 P M EDT Height 167.6 cm (5' 6) 04/28/2011 1:35 PM EDT Body Mass Index 20.84 04/28/2011 1:35 PM EDT Body Mass Index Percentile 60.35% 04/28/2011 1:3 5 PM EDT Growth Chart: [facility] (Girls, 2- 20 Years) documented in this encounter Patient Instructions * Patient Instructions* Lazarus Phillips MD - 04/28/2011 2:27 PM EDT No running until we discuss by phone. documented in this encounter Progress Notes * Lazarus Phillips MD - 04/28/2011 3:18 PM EDT Subjective: Patient ID: Orlando Bearden is a 16 y.o. female. HPI CLARIFICATION NEEDED: PLEASE FILL IN THE BLANK. IDENTIFICATION: Orlando is a 16-year-old girl who comes to clinic today with her mother to be evaluated in consultation for Dr. Freeman Herrera and Dr. Saldivar for intermittent back pain. She is accompanied by her mother. HISTORY: Orlando has a past medical history significant for uveitis and psoriasis with intermittent back pain that has been evaluated fairly recently by her infantry operations specialist, Dr. Damaris Murphy. As I reviewed the note in eDH, the exam was non-concerning at that point in time. However, Orlando has had increasing difficulty with back pain associated with high-level backpacking trip in February and then increased running up to six days a week three to four miles a day in preparation for cross-country season this fall. The school customer trainer was concerned about hyperextension pain as was her primary care physician and she was therefore sent along for further evaluation along with MRI which was performed earlier today. Orlando has had back pain vaguely off and on that exacerbated last year with cross-country season. but this year, is a very poor historian although perhaps is reticent to give the full picture, does not seem to correlate her back pain with increased activities such as running. 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 She does all strokes, but has recently had pain which promoted her doctor to stop. Her primary care doctor stopped her from running for the past week. She has not noticed improvement of pain and still has 6.5/10 pain setting here today in the office, 7/10 the entire last night after the stair climber. Has difficulty when lying on her belly, but has had no difficulty sleeping. No fevers or chills. No pain which wakes her up from sleep at night or radiation down her legs. No difficulty with bowel or bladder habits and no other changes. She is otherwise fit and she has a history of irregular menses. She was actually given a Provera challenge, did bleed prior to the hiking trip earlier this summer. She knows no associated other signs or symptoms, did not really have any specific trauma. The pain did seem to perhaps exacerbate within a week after starting running three weeks ago, but again historical skills are challenging and her mother reports that she believes the pain has essentially been in hyperextension position for quite sometime. Review of systems, past medical, family, and social history is reviewed as documented. Review of Systems Constitutional: Negative for fever, weight loss and malaise/fatigue. HENT: Negative for neck pain. Respiratory: Negative for shortness of breath. Cardiovascular: Negative for chest pain. Gastrointestinal: Negative for nausea, vomiting and abdominal pain. Genitourinary: Negative for bladder incontinence, dysuria, frequency, hematuria, flank pain and pelvic pain. Musculoskeletal: Positive for back pain. Neurological: Negative for tingling, sensory change, focal weakness, weakness, numbness, headaches and paresthesias. Endo/Heme/Allergies: Does not bruise/bleed easily. Psychiatric/Behavioral: Negative for depression. Objective: Physical Exam Vitals reviewed. Constitutional: She is oriented to person, place, and time. Neurological: She is oriented to person, place, and time. Gait normal. Back Exam Sensation: Normal. Gait: Normal. Tenderness The patient is experiencing tenderness in the lumbar and L2-L4. Range of Motion Flexion: 90 Extension: Abnormal Lateral Bend Left: Normal Lateral Bend Right: Normal Rotation Right: Normal Rotation Left: Normal SLR Right: Negative Left: Negative Muscle Strength Normal Tests Toe Walk: Normal Heel Walk: Normal Reflexes Patellar: 1/4 Achilles: 2/4 Comments: Popliteal angles 60 bilaterally. Markedly positive Stork tests; resists going into any hyperextension. Neurologic Exam Mental Status Oriented to person, place, and time. Motor Exam Muscle bulk: normal Overall muscle tone: normal Gait, Coordination, and Reflexes Gait Gait: normal Assessment and Plan: Spondylolysis of lumbar region - LAZARUS PHILLIPS MD 04/28/11 03:23 PM Signed Orlando was seen today for back pain. Diagnoses and associated orders for this visit: Spondylolysis of lumbar region - REFERRAL TO PHYSICAL THERAPY Will attend to core strengthening and peripelvic flexibility pending imaging results. IMPRESSION AND RECOMMENDATIONS: Orlando does seem to have extension-based back pain, but mechanism is not classic for spondylolysis nor the imaging findings that we could review today. MRI was completed briefly and I did not have an official interpretation from radiology, but to my eye, there was no ruiz evidence of stress fracture. Recommendation therefore is we discussed how it may be safe to participate in running particularly as there is not a hyperextension exercise, but I would suggest that perhaps a three-week course of physical therapy to obtain core stability and pelvic flexibility particularly with her hamstring and flexibility and to reduce her symptoms. Orlando was not excited about this option. I think would prefer to return to running as soon as possible, so we will discuss after we have the official interpretation of the imaging by phone at . Otherwise, I have continued to give her physical therapy reacquisition suggesting that she engage in same, even if she returns to running and we will discuss further subsequent to scanning. documented in this encounter Miscellaneous Notes * Miscellaneous - Nabil Santana - 05/11/2011 6:05 AM EDT * Assessment & Plan Note - Lazarus Phillips MD - 04/28/2011 3:23 PM EDTAssociated Problem(s): Spondylolysis of lumbar region Orlando was seen today for back pain. Diagnoses and associated orders for this visit: Spondylolysis of lumbar region - REFERRAL TO PHYSICAL THERAPY Will attend to core strengthening and peripelvic flexibility pending imaging results. 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
--- OUTSIDE RECORDS SUMMARY | 2024-08-21 14:13 | XMS_ITS | Encounter Summary ---
Author Organization [facility] [place] [address] Care Team Providers Care Sample Collector Name Role Phone Freeman Herrera MD Primary Care Provider [phone] Encounter Details Date Type Department Care Team (Late st Contact Info) Description 06/09/2010 Orders Only [place] [phone] Damaris Murphy MD Social History Tobacco Use Types Packs/Day Years Used Date Smoking Tobacco: Never Assessed Sex and Gender Information Value Date Recorded Sex Assigned at Not on file Gender Identity Not on file Sexual Orientation Not on file documented as of this encounter Plan of Treatment Not on file documented as of this encounter Procedures Procedure Name Priority Date/Time Associated Diagnosis Comments FILM LIBRARY STORAGE ONLY DX PELVIS Routine 06/09/2010 7:51 AM EDT documented in this encounter Results * FILM LIBRARY- STORAGE ONLY DX PELVIS (06/09/2010 7:51 AM EDT) 06/09/2010 7:51 AM EDT Narrative RAD - 01/02/2014 7:46 PM EDT This is a non-reportable exam. Procedure Note Matt Angel - 01/02/2014 This is a non-reportable exam. Damaris Murphy MD IMG FILM LIBRARY O RDERABLES [facility] [address] [place] [address] documented in this encounter Visit Diagnoses Not on filedocumented in this encounter Care Teams Sample Collector Relationship Specialty Start Date End Date Freeman Herrera MD [address] [place] [address] PCP - General 07/22/10 02/07/13 documented as of this encounter
--- OUTSIDE RECORDS SUMMARY | 2024-08-21 14:13 | XMS_ITS | Encounter Summary ---
[place] [address] Care Team Providers Care Nuclear Medicine Supervisor Name Role Phone Freeman eHrrera MD Primary Care Provider [phone] Encounter Details Date Type Department Care Team (Latest Contact Info) Description 04/28/2011 10:52 AM EDT - 04/28/2011 11:59 PM EDT Hospital [place] [id number] CLINIC, Santosh Dueñas MD [address] [place] [address] [place], [place] [id number] Freeman Herrera MD [address] [place] [address] [place], [place] [id number] Discharge Disposition: Home Social History Tobacco Use [...] Date tacrolimus (PROTOPIC) 0.1 % ointment 08/06/2010 methotrexate 2.5 mg tabletIndications:Uveiti s Take 5 tablets by mouth once a week. When stomach is empty, 2 hours after eating and do not eat for 1 hour. 20 tablet 2 04/28/2011 04/29/2011 folic acid (FOLVITE) 1 mg tabletIndications:Uveiti s Take 1 tablet by mouth daily. 30 tablet 12 02/06/2011 02/06/2012 inFLIXimab (REMICADE) 100 mg injection 300 mg, IV, as directed,before meals 08/06/2010 11/03/2012 betamethasone dipropionate (DIPROLENE) 0.05 % cream 1 Appl(s) Top as directed 08/06/2010 11/03/2012 documented as of this encounter Miscellaneous Notes * Miscellaneous - Provider, Scanning - 06/01/2011 11:06 AM EDT documented in this encounter Plan of Treatment Not on file documented as of this encounter Procedures Procedure Name Priority Date/Time Associated Diagnosis Comments MRI LUMBAR SPINE WITHOUT CONTRAST Routine 04/28/2011 12:16 PM EDT documented in this encounter Results * MRI LUMBAR SPINE WITHOUT CONTRAST (04/28/2011 12:16 PM EDT) Anatomical Region Laterality Modality L-spine Magnetic Resonan ce 04/28/2011 12:1 6 PM EDT Impressions 04/29/2011 7:43 AM EDT IMPRESSION: ?? Essentially normal MR of the lumbar side with the exception of a probable fatty filum not associated with evidence of tethering. Narrative 04/29/2011 7:43 AM EDT MR OF THE LUMBAR SPINE WITHOUT CONTRAST: HISTORY: ??Mid back pain. Normal plain film. TECHNIQUE: ??MRI of the lumbar spine performed without the use of intravenous contrast. CONTRAST: ??None. FINDINGS: ??Overall alignment of the lumbar spine is normal. Marrow signal is normal throughout. Normal-appearing conus terminates at the L1 level. The visualized retroperitoneum is normal. There appears to be a fatty filum. There is no evidence of significant dysraphism, or low-lying conus to suggest tethering. Disc heights are preserved without evidence of neural foraminal or central canal narrowing at any level. There is a small disc protrusion at L4-L5 on the left, which does not cause significant central canal or neural foraminal narrowing. Procedure Note Osei Antony MD - 04/29/2011 MR OF THE LUMBAR SPINE WITHOUT CONTRAST: HISTORY: Mid back pain. Normal plain film. TECHNIQUE: MRI of the lumbar spine performed without the use ofintravenous contrast. CONTRAST: None. FINDINGS: Overall alignment of the lumbar spine is normal. Marrow signalis normal throughout. Normal-appearing conus terminates at the L1 level. The visualized retroperitoneum is normal. There appears to be a fatty filum.There is no evidence of significant dysraphism, or low-lying conus to suggest tethering. Disc heights are preserved without evidence of neural foraminalor central canal narrowing at any level. There is a small disc protrusion atL4-L5 on the left, which does not cause significant central canal or neuralforaminal narrowing. IMPRESSION IMPRESSION: Essentially normal MR of the lumbar side with the exception of a probablefatty filum not associated with evidence of tethering. Santosh Saldivar MD IMG MRI ORDERABLE S documented in this encounter Visit Diagnoses Not on filedocumented in this encounter Care Teams Nuclear Medicine Supervisor Relationship Specialty Start Date End Date Freeman Herrera MD [address] [place] [address] PCP - General 07/22/10 02/07/13 documented as of this encounter
--- OUTSIDE RECORDS SUMMARY | 2024-08-21 14:13 | XMS_ITS | Encounter Summary ---
[place] [address] Care Team Providers Care Senior C Software Engineer Name Role Phone Freeman Herrera MD Primary Care Provider [phone] Reason for Visit * Reason Onset Date Comments Other 03/17/2011 Faxing Rx for in fliximab. Encounter Details Date Type Department Care Team ([facility] Contact Info) Description 03/17/2011 Telephone [place] [phone] Damaris Murphy MD Other (Faxing Rx for infliximab.) Social History Tobacco Use Types Packs/Day Years Used Date Smoking Tobacco: Never Alcohol Use Standard Drinks/Week Comments Not Asked 0 (1 standard drink = 0.6 oz pur e alcohol) Sex and Gender Information Value Date Recorded Sex Assigned at Not on file Gender Identity Not on file Sexual Orientation Not on file documented as of this encounter Miscellaneous Notes * Telephone Encounter - Damaris Murphy MD - 03/17/2011 4:15 PM EDT I called [facility] and got the phone number and Fax numbers for their infusion center. All theyneed is the infliximab orders and the families home phone numbers. She weighs 56.25 kg and her doseis 5 mg/kg. Orders for infliximab, 300 mg q 8 weeks and the home and alternate phone numbers were faxed to them, . Their phone number is [phone]. documented in this encounter Plan of Treatment Not on file documented as of this encounter Visit Diagnoses Not on filedocumented in this encounter Care Teams Senior C Software Engineer Relationship Specialty Start Date End Date Freeman Herrera MD [address] [place] [address] [address] [facility] [place] [address] PCP - General 07/22/10 02/07/13 documented as of this encounter
--- OUTSIDE RECORDS SUMMARY | 2024-08-21 14:13 | XMS_ITS | Encounter Summary ---
Author Organization [facility] Address [facility] [place] [address] Care Team Providers Care Child Psychiatrist Name Role Phone Freeman Herrera MD Primary Care Provider [phone] Encounter Details Date Type Department Care Team (Late st Contact Info) Description 08/06/2010 11:00 AM EST Office Visit [address] [place] [address] Nuvia Patrick MD [facility] [place] [address] Discharge Disposition: Home Social History Tobacco Use [...] on filedocumented in this encounter Care Teams Child Psychiatrist Relationship Specialty Start Date End Date Freeman Herrera MD [address] [place] [address] [place] [address] PCP - General 07/22/10 02/07/13 documented as of this encounter
--- OUTSIDE RECORDS SUMMARY | 2024-08-21 14:13 | XMS_ITS | Encounter Summary ---
Author Organization [facility] [place] [address] Care Team Providers Care Machine Biller Name Role Phone Freeman Herrera MD Primary Care Provider [phone] Encounter Details Date Type Department Care Team (Late st Contact Info) Description 04/21/2011 Orders Only Pediatrics at [address] [address] Lazarus Phillips MD [facility] [place] [address] Social History Tobacco Use Types Packs/Day Years [...] Diagnosis Comments FILM LIBRARY STORAGE ONLY DX SPINE Routine 04/21/2011 2:36 PM EDT documented in this encounter Results * FILM LIBRARY- STORAGE ONLY DX SPINE (04/21/2011 2:36 PM EDT) 04/21/2011 2:36 PM EDT Narrative [facility] - 01/02/2014 7:46 PM EDT This is a non-reportable exam. Procedure Note Matt Angel - 01/02/2014 This is a non-reportable exam. Lazarus Phillips MD [facility] FILM LIBRARY ORD ERABLES RAD [address] [place] [address] documented in this encounter Visit Diagnoses Not on filedocumented in this encounter Care Teams Machine Biller Relationship Specialty Start Date End Date Freeman Herrera MD [address] [place] [address] PCP - General 07/22/10 02/07/13 documented as of this encounter
--- OUTSIDE RECORDS SUMMARY | 2024-08-21 14:13 | XMS_ITS | Encounter Summary ---
[place] [address] Care Team Providers Care Aoc Operations Intelligence Officer Name Role Phone Freeman Herrera MD Primary Care Provider [phone] Reason for Visit * Reason Comments IV Medication Encounter Details Date Type Department Care Team (Latest Contact Info) Description 01/16/2011 8:34 AM EDT - 01/16/2011 11:59 PM EDT Hospital Encounter [place] [address] CLINIC, Freeman Bass MD [address] [place] [phone] Uveitis (Primary Dx) Discharge Disposition: Home Social [...] Sign Reading Time Taken Comments Blood Pressure 97/52 01/16/2011 8:40 AM EDT Pulse 59 01/16/2011 8:40 AM EDT Temperature 36.2 ??C (97.2 ??F) 01/16/2011 8:40 AM ED T Respiratory Rate 14 01/16/2011 8:40 AM EDT Oxygen Saturation 95% 01/16/2011 8:40 AM EDT Inhaled Oxygen Concentration - - Weight - - Height - - Body Mass Index - - documented in this encounter Medications at Time of Discharge Medication Sig Dispensed Refills Start Date End Date tacrolimus (PROTOPIC) 0.1 % ointment 08/06/2010 methotrexate 2.5 mg tablet 15mg, 6 tabs, PO, QWEEK 08/06/2010 02/06/2011 inFLIXimab (REMICADE) 100 mg injection 300 mg, IV, as directed,before meals 08/06/2010 11/03/2012 betamethasone dipropionate (DIPROLENE) 0.05 % cream 1 Appl(s) Top as directed 08/06/2010 11/03/2012 documented as of this encounter Progress Notes * Hannah Elias, SCOTT - 01/16/2011 12:14 PM EDT INFUSION THERAPY ADMINISTRATION NOTE DIAGNOSIS: 1. Uveitis (364.3D) REASON FOR VISIT: Remicade SUBJECTIVE: No complaints. OBJECTIVE: Last infusion on 11/21/10 Allergies Allergen Reactions ??? Clindamycin CIS - Hives ??? Penicillins CIS - Nausea/Vomiting LAB DATA: No results found for this or any previous visit (from the past 24 hour(s)). VITAL SIGNS BP 97/52 Pulse 59 Temp(Src) 36.2 ??C (97.2 ??F) (Oral) Resp 14 SpO2 95% IF PAIN > 5, INTERVENTION AND EFFECTIVENESS: n/a IV PLACEMENT: Peripheral IV Insertion/Assessment 01/16/11 0920 Right metacarpal vein [id number] catheter 3/4in length (Active) HYDRATION, RATE, START TIME, STOP TIME NS @ KVO 0920 to 1147 ANTIEMETICS/PREMEDS: DOSE, ROUTE, START TIME, STOP TIME Tylenol 650 mg PO @0845 Benadryl 25 mg PO @ Declined by patient Patient identification and orders checked against actual dose given at bedside by Hannah Elias RN. TREATMENT: DOSE, ROUTE, START TIME, STOP TIME Administrations This Visit sodium chloride 0.9% 250 mL with inFLIXimab 300 mg infusion Date Action Dose Route User 01/16/2011 New Bag 300 mg Intravenous HANNAH ELIAS Administration times: 0928 to 1145. REACTIONS (DESCRIPTION, TIME, INTERVENTION, EFFECTIVENESS) None. ASSESSMENT Tolerated treatment well. PLAN Return to clinic in 8 weeks on or about 03/13/11. documented in this encounter Procedure Notes * Provider, Scanning - 10/06/2013 8:56 AM ESTAssociated Order(s): SCAN DOC: ORDS - PROVIDER CARE documented in this encounter Plan of Treatment Not on file documented as of this encounter Procedures Procedure Name Priority Date/Time Associated Diagnosis Comments ORDS - PROVIDER CARE SCAN 10/06/2013 8:56 AM EST documented in this encounter Results * SCAN DOC: ORDS - PROVIDER CARE (10/06/2013 8:56 AM EST) Narrative 10/06/2013 8:56 AM EST Procedure Note Provider, Scanning - 10/06/2013 8:56 AM EST Scanning Provider MEDIA MGR SCAN EXT O RDR/RSLT documented in this encounter Visit Diagnoses Diagnosis Uveitis- Primary Unspecified iridocyclitis documented in this encounter Administered Medications Inactive Administered Medications - up to 3 most recent administrations Medication Order MAR Action Action Date Dose Rate Site sodium chloride 0.9% 250 mL with inFLIXimab 300 mg infusion at 100 mL/hr, Intravenous, ONCE, 1 dose, On Wed01/16/11 at 0930 New Bag 01/16/2011 9:28 AM EDT 300 mg 100 mL/hr documented in this encounter Care Teams Aoc Operations Intelligence Officer Relationship Specialty Start Date End Date Freeman Herrera MD [address] [place] [address] PCP - General 07/22/10 02/07/13 documented as of this encounter
--- OUTSIDE RECORDS SUMMARY | 2024-08-21 14:13 | XMS_ITS | Encounter Summary ---
Author Organization [facility] [place] [address] Care Team Providers Care Front Desk Monitor Name Role Phone Freeman Herrera MD Primary Care Provider [phone] Reason for Visit * Reason Comments Follow-up monitoring inflixima b for uveitis Encounter Details Date Type Department Care Team ([facility] Contact Info) Description 02/03/2011 12:30 PM EDT Office Visit [address] [place] [address] Damaris Murphy MD Therapeutic drug monitoring; Uveitis Discharge Disposition: Home Social History Tobacco [...] Pressure - - Pulse - - Temperature 36.6 ??C (97.9 ??F) 02/03/2011 1 2:12 PM EDT Respiratory Rate - - Oxygen Saturation - - Inhaled Oxygen Concentration - - Weight 56.3 kg (124 lb 0.1 oz) 02/04/20 11 12:12 PM EDT Height 167.5 cm (5' 5.95) 02/03/2011 1 2:12 PM EDT Body Mass Index 20.05 02/03/2011 12:12 PM EDT Body Mass Index Percentile 52.33% 02/03 12:12 PM EDT Growth Chart: CDC (Girls, 2- 20 Years) documented in this encounter Progress Notes * Damaris Murphy MD - 02/03/2011 1:28 PM EDT Subjective: Patient ID: Orlando Bearden is a 15 y.o. female who came to clinic today accompanied by her mother.. HPI: Orlando comes to clinic today as a transfer from Dr. Patrick who followed her for management ofher medications for idiopathic uveitis. She has never had any symptoms of JR or other CTD. She hashad back pain that was thought to be mechanical. She denied back pain today. She is followed regularly by her projects manager in [facility] and has seen Dr. Godlen in [place]. She has not seen Dr. Golden for 2 years. She did not respond to methotrexate alone, but has done well on methotrexate and infliximab. She gets 300 mg every 2 months. Her last dose was 2 weeks ago. She has never had an infusion reaction. Her eyes have done well with just a few cells when seen by her projects manager. Shehas 20/500 vision in her left eye secondary to a cataract. Cataract removal was recommended, but they chose to defer this procedure. Her other eye is 20/20. She stopped her methotrexate sometime in the last months, 2 months ago according to Orlando and 4 months ago according to her mom. She didn't think she needed it since it didn't work initially and she had nausea and oral ulcers without vomitingor headache. She has not taken folic acid for a long time. She developed psoriasis while on the infliximab. They know this can be caused by infliximab, but it is also a treatment for psoriasis. Afterdiscussion with Nidhi Arnold, they chose to continue it since it had worked well for her eyes and the psoriasis was controlled well with topical medications. She has gotten lab work in [facility] and they don't recall any problems, but they were last done in June of last year. Her bulk sealer operator is now Mookie Saldivar. A review of symptoms of diseases associated with uveitis was negative. Review of Systems Constitutional: Negative. HENT: Positive for congestion. She has seasonal environmental allergies with congestion. She does not take any medication for these symptoms. Eyes: Positive for itching and visual disturbance. She gets itchy eyes from her seasonal allergies. She does not see well out of her left eye from heruveitis. Respiratory: Negative. Cardiovascular: Negative. Gastrointestinal: Negative. Genitourinary: Negative. Musculoskeletal: Negative. Skin: Positive for rash. She has psoriasis followed by Dr. Diaz who is no longer here. Neurological: Negative. Hematological: Negative. Psychiatric/Behavioral: Negative. Objective: Physical Exam Constitutional: She appears well-developed and well-nourished. No distress. HENT: Right Ear: External ear normal. Left Ear: External ear normal. Mouth/Throat: Oropharynx is clear and moist. Eyes: Her right eye revealed moist, clear conjunctiva and sharp discs without perivascular exudates. There was no evidence of uveitis by exam with the ophthalmoscope. Her left fundus was obscured by the cataract. The conjunctiva was moist without injection. EOM were intact. There was no strabismus. Neck: Normal range of motion. Neck supple. No thyromegaly present. Cardiovascular: Normal rate. No murmur heard. Pulmonary/Chest: Effort normal and breath sounds normal. No respiratory distress. Abdominal: Soft. She exhibits no mass. No tenderness. There was no organomegaly. Musculoskeletal: A detailed joint exam was preformed. There was FROM in all joints without swelling or pain at the EOM. She had pes planus and valgus heels bilaterally. She had good forward flexion of her spine without scoliosis. There was no pain with motion or percussion of her spine. There was no SI joint tenderness or enthesopathy. Lymphadenopathy: She has no cervical adenopathy. Neurological: She is alert. Cranial nerves were grossly intact. Cerebellar testing by finger to nose was intact. DTRs were 1+ through out. Plantar response was down going. Skin: Skin is warm and dry. No rash noted. Psychiatric: She has a normal mood and affect. Her behavior is normal. Lab Studies obtained today included a CBC with a WBC of 6100, a hg of 13.1 and a platelet count of 390,000. Differential of the WBC was unremarkable. A CMP revealed an elevated TP of 8.9(5,7-8.0) andan albumin of 5.3(3.3-4.9), Her LFT were WNL. Assessment: 1. Idiopathic uveitis controlled on her current medications, but with a few cells, not in remission. 2. Nausea and oral ulcers from methotrexate 15 mg weekly without folic acid. 3. Elevated TP and albumin of ? significance. Recommendations: 1. I reviewed the need for methotrexate to prevent antibody formation with infliximab and that the methotrexate works together with the infliximab for control of her uveitis. After some discussion Orlando agreed to resume it in a slightly reduced dose of 12.5 mg weekly and folate 1 mg daily. I hope her nausea and mouth sores will not be a problem on this dose with the folic acid. 2. CBC and LFT every 2-3 months to R/O methotrexate toxicity. 3. She had questions about stopping the infliximab. With cells still present, I doubt that would berecommended by her ophthalmologists. Other options including adalimumab or MMF might be considered.I recommended she see Dr. Golden again and discuss these choices with him. 4. Finally, mom had questions about getting the infliximab closer to home. I called Dr. Saldivar and he found that the infusion center in their hospital will give it. When I called to report her labs, I asked Mrs Bearden to call me back to decide where they would like to go. 5. RTC in 6 months or prn problems. No problem-specific visit notes found for this encounter. documented in this encounter Procedure Notes * Provider, Scanning - 03/29/2012 10:49 AM EDTAssociated Order(s): SCAN DOC: ORDS - PROVIDER CARE documented in this encounter Plan of Treatment Not on file documented as of this encounter Procedures Procedure Name Priority Date/Time Associated Diagnosis Comments ORDS - PROVIDER CARE SCAN 03/29/2012 10:49 AM EDT DIFFERENTIAL, AUTOMATED Routine 02/03/2011 2:04 PM EDT SEDIMENTATION RATE Routine 02/03/2011 2: 04 PM EDT Uveitis CBC (WITH DIFF) Routine 02/03/2011 2:04 PM EDT Therapeutic drug monitoring COMPREHENSIVE METABOLIC PANEL Routine 02/03/2011 2:04 PM EDT Therapeutic drug monitoring documented in this encounter Results * SCAN DOC: ORDS - PROVIDER CARE (03/29/2012 10:49 AM EDT) Narrative 03/29/2012 10:49 AM EDT Procedure Note Provider, Scanning - 03/29/2012 10:49 AM EDT Scanning Provider MEDIA MGR SCAN EXT O RDR/RSLT * REFLEX LAB-A-DIFF (02/03/2011 2:04 PM EDT) Neutrophil % 42.4 37.0 - 77.0 % CERNER MILLENNIUM Neutrophil Absolute 2.60 1.50 - 8.00 x10(3)/mcL CERNER MILLENNIUM Lymph % 47.7 20.0 - 50.0 % CERNER MILLENNIUM Lymphocytes Abs 2.9 1.2 - 5.2 x10(3)/mcL CERNER MILLENNIUM Monocyte % 6.5 2.0 - 12.0 % CERNER MILLENNIUM Monocyte Abs 0.4 0.2 - 1.0 x10(3)/mcL CERNER MILLENNIUM Eos % 2.9 0.0 - 7.0 % CERNER MILLENNIUM Eosinophils Abs 0.2 0.0 - 0.5 x10(3)/mcL CERNER MILLENNIUM Basophil % 0.5 0.0 - 2.0 % CERNER MILLENNIUM Baso Absolute 0.0 0.0 - 0.2 x10(3)/mcL CERNER MILLENNIUM Immature Gran % 0.00 0.00 - 0.66 % CERNER MILLENNIUM Comment: Immature granulocytes(IG's)percentage and absolute count will include metamyelocytes, myelocytes, and promyelocytes. Blood smears from CBCs yielding IG's will be scanned manually for concordance. If this scan disagrees with the automated IG or if promyelocytes are noted, a manual differential will be performed. Immature Gran Absolute 0.00 0.00 - 0.05 x10(3)/mcL CERNER MILLENNIUM Blood specimen (specimen) 02/03/2011 2:04 PM EDT 02/03/2011 2:27 PM EDT Damaris Murphy MD HEMATOLOGY ORDERAB LES CERNER MILLENNIUM * Sedimentation rate (02/03/2011 2:04 PM EDT) Sedimentation Rate Automated 9 0 - 20 mm/hr CERNER MILLENNIUM Blood specimen (specimen) 02/03/2011 2:04 PM EDT 02/03/2011 2:27 PM EDT Damaris Murphy MD HEMATOLOGY ORDERAB LES CERNER MILLENNIUM * (ABNORMAL) CBC (with Diff) (02/03/2011 2:04 PM EDT) White Blood Cell 6.1 4.5 - 13.0 x10(3)/mc L CERNER MILLENNIUM Red Blood Cell 4.42 4.10 - 5.10 x10(6)/mc L CERNER MILLENNIUM Hemoglobin 13.1 12.0 - 16.0 gm/dL CERNER MILLENNIUM Hematocrit 39.7 36.0 - 46.0 % CERNER MILLENNIUM Mean Cell Volume 89.8 76.0 - 98.0 fL CERNER MILLENNIUM Mean Cell Hemoglobin 29.6 25.0 - 35.0 pg CERNER MILLENNIUM Mean Cell Hemoglobin Concentration 33.0 32.0 - 36.5 gm/dL CERNER MILLENNIUM Platelet 390(H) 145 - 370 x10(3)/mc L CERNER MILLENNIUM RDW Standard Deviation 41.0 35.0 - 46.0 fL CERNER MILLENNIUM RDW coefficient of variation 12.5 10.9 - 14.4 % CERNER MILLENNIUM Mean Platelet Volume 9.6 9.0 - 12.0 fL CERNER MILLENNIUM Blood specimen (specimen) 02/03/2011 2:04 PM EDT 02/03/2011 2:27 PM EDT Damaris Murphy MD HEMATOLOGY ORDERAB LES CERNER KARLOSENNIUM * (ABNORMAL) Comprehensive metabolic panel (non-fasting) (02/03/2011 2:04 PM EDT) Glucose 95 60 - 199 mg/dL CERNER MILLENNIUM Comment:Diabetes: >=200 mg/d L plus symptoms Blood Urea Nitrogen 7(L) 10 - 20 mg/dL CERNER MILLENNIUM Creatinine 0.57 0.20 - 0.70 mg/dL CERNER MILLENNIUM Sodium 141 135 - 145 mmol/L CERNER MILLENNIUM Potassium 3.8 3.5 - 5.0 mmol/L CERNER MILLENNIUM Comment: [...] 5 - 15 mmol/L CERNER MILLENNIUM Calcium 10.4 8.5 - 10.5 mg/dL CERNER MILLENNIUM Protein, Total 8.9(H) 5.7 - 8.0 gm/dL CERNER MILLENNIUM Albumin 5.3(H) 3.3 - 4.9 gm/dL CERNER MILLENNIUM Aspartate Aminotransferase 23 5 - 30 unit/L CERNER MILLENNIUM Alanine Aminotransferase 11 0 - 25 unit/L CERNER MILLENNIUM Alkaline Phosphatase 90 80 - 250 unit/L CERNER MILLENNIUM Bilirubin, Total 0.4 <=1.0 mg/dL CERNER MILLENNIUM Bilirubin, Direct 0.1 [...] past week). For patients multiply eGFR by 1.2.MDRD equation has not been validated for pediatric patients and is only valid for patients with age >= 18 years. At present, NKDEP does NOT recommend using [...] with diabetic kidney disease. References: http://nkdep.nih.gov/resources/NKDEP_Suggestn4Labs_0606_508.pdf http://www.kidney.org/professionals/kls/pdf/faq_gfr.pdf Blood specimen (specimen) 02/03/2011 2:04 PM EDT 02/03/2011 2:27 PM EDT Damaris Murphy MD CHEMISTRY ORDERABL ES Performing Organization Address City/State/[facility] [place] Phone Number [facility] documented in this encounter Visit Diagnoses Diagnosis Therapeutic drug monitoring Encounter for therapeutic drug monitoring Uveitis Unspecified iridocyclitis documented in this encounter Care Teams Front Desk Monitor Relationship Specialty Start Date End Date Freeman Herrera MD [address] [place] [address] PCP - General 07/22/10 02/07/13 documented as of this encounter
--- OUTSIDE RECORDS SUMMARY | 2024-08-21 14:13 | XMS_ITS | Encounter Summary ---
Author Organization [facility] Address [facility] [place] [address] Care Team Providers Care Job Press Feeder Name Role Phone Freeman Herrera MD Primary Care Provider [phone] Encounter Details Date Type Department Care Team (Late st Contact Info) Description 08/01/2010 11:30 AM EST Office [place] [address] CLINIC, Nuvia Junior MD [facility] [place] [address] Thong Perez MD [facility] [place] [address] Discharge Disposition: Home Social History Tobacco Use [...] on filedocumented in this encounter Care Teams Job Press Feeder Relationship Specialty Start Date End Date Freeman Herrera MD [address] [place] [address] PCP - General 07/22/10 02/07/13 documented as of this encounter
--- OUTSIDE RECORDS SUMMARY | 2024-08-21 14:13 | XMS_ITS | Encounter Summary ---
[place] [address] Care Team Providers Care Workday Financials Consultant Name Role Phone Freeman Herrera MD Primary Care Provider [phone] Reason for Visit * Reason Onset Date Comments Results 04/28/2011 Encounter Details Date Type Department Care Team ([facility] st Contact Info) Description 04/28/2011 Telephone [place] [address] Damaris Murphy MD Results Social [...] Telephone Encounter - Damaris Murphy MD - 04/28/2011 12:22 PM EDT I received Orlando's methotrexate labs and they were WNL. I called Mrs. Bearden to inform her. I got voice mail on her cell. I left a message. I have also refilled her methotrexate. documented in this encounter Plan of Treatment Not on file documented as of this encounter Visit Diagnoses Diagnosis Uveitis- Primary Unspecified iridocyclitis documented in this encounter Care Teams Workday Financials Consultant Relationship Specialty Start Date End Date Freeman Herrera MD [address] [place] [address] [place] [address] PCP - General 07/22/10 02/07/13 documented as of this encounter
--- OUTSIDE RECORDS SUMMARY | 2024-08-21 14:13 | XMS_ITS | Encounter Summary ---
Author Organization [facility] [place] [address] Care Team Providers Care Non Linear Editor Name Role Phone Freeman Herrera MD Primary Care Provider [phone] Reason for Visit * Reason Onset Date Comments Results 02/09/2011 Encounter Details Date Type Department Care Team (Late st Contact Info) Description 02/09/2011 Telephone [place] [address] Damaris Murphy MD Results Social [...] Telephone Encounter - Damaris Murphy MD - 02/09/2011 3:40 PM EDT I called Mrs. Bearden ans spoke with her. I reviewed Orlando's lab results. She has an elevated TP andalbumin of ? significance. All other studies were WNL. I told her we could arrange for the infliximab to be given in [facility]. Mom would like to do it there. I will make these arrangements. She will schedule a F/U with Dr. Golden and will let me know how Orlando is doing in 1-2 months on the lower dose of methotrexate with the folate. documented in this encounter Plan of Treatment Not on file documented as of this encounter Visit Diagnoses Not on filedocumented in this encounter Care Teams Non Linear Editor Relationship Specialty Start Date End Date Freeman Herrera MD [address] [facility] [place] [address] PCP - General 07/22/10 02/07/13 documented as of this encounter
--- OUTSIDE RECORDS SUMMARY | 2024-08-21 14:13 | XMS_ITS | Encounter Summary ---
Author Organization [facility] [place] [address] Care Team Providers Care Cryptologic Supervisor Name Role Phone Freeman Herrera MD Primary Care Provider [phone] Encounter Details Date Type Department Care Team (Late st Contact Info) Description 11/21/2010 8:30 AM EDT Office [place] [phone] CLINIC, Freeman Bass MD [address] [place] [address] Carlita Chavarria MD [address] [place] [address] [place] [address] Discharge Disposition: Home Social History Tobacco Use [...] on filedocumented in this encounter Care Teams Cryptologic Supervisor Relationship Specialty Start Date End Date Freeman Herrera MD [address] [place], [place] [id number] PCP - General 07/22/10 02/07/13 documented as of this encounter
--- OUTSIDE RECORDS SUMMARY | 2024-08-21 14:13 | XMS_ITS | Encounter Summary ---
Author Organization [facility] [place] [address] Care Team Providers Care Architect Name Role Phone Irma Mcbride MD Primary Care Provider [phone] Encounter Details Date Type Department Care Team (Late st Contact Info) Description 10/30/2008 Orders Only Dermatology at [address] [place] [phone] Weston Whitney MD [address], [place] [address] Social History Tobacco Use Types Packs/Day Years Used Date Smoking Tobacco: Never Assessed Sex and Gender Information Value Date Recorded Sex Assigned at Not on file Gender Identity Not on file Sexual Orientation Not on file documented as of this encounter Plan of Treatment Not on file documented as of this encounter Procedures Procedure Name Priority Date/Time Associated Diagnosis Comments SURGICAL PATHOLOGY REPORT Routine 10/30/2008 6:20 PM EST documented in this encounter Results * Surgical Pathology Report (10/30/2008 6:20 PM EST) Surgical Pathology Report [id number] ? Location: [facility] The signing pathologist has (i) examined the relevant preparation(s) for the specimen(s) and (ii) rendered or confirmed the diagnosis(es). . ?Pathology Surgical Pathology Final Report Clinical Information Specimen Submitted: A - (R) axilla, 4-mm Punch: Clinical History: Since May underarm dermatitis in 13-yr-old with idiopathic uveitis on methotrexate/Reinier ciara. ??Not responsive to Ketoconazole/Tria mcinolone. 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 R axilla, formalin. Qty/Size/Weight: ?Single punch, 0.4 cm, loyd-pink. Sections/Processi ng: ??Bisected. ??(T1) ??aje/SNS Microscopic Description Slides reviewed, microscopic description not recorded. Diagnosis Skin, right axilla, punch biopsy: ?? Psoriasiform dermatitis with confluent parakeratosis containing neutrophils, consistent with psoriasis ?? (see Comment). CR-0 10/31/08 VMS 10/31/08 Verified by: ? Nehemias HERNANDES, PhD, [facility] ?Dermatopatholog ist ?(Electronic Signature) The attending pathologist whose signature appears on this report has reviewed all diagnostic slides and has edited the gross and/or microscopic portion of the report in rendering the final pathologic diagnosis. Comment No fungi are seen in PAS-reacted sections. SHAHZAD MONSIVAIS 10/30/2008 6:20 PM EST Weston Whitney MD PATHOLOGY/CYTOLOGY O RDERABLES SHAHZAD MONSIVAIS documented in this encounter Visit Diagnoses Not on filedocumented in this encounter Care Teams Architect Relationship Specialty Start Date End Date Irma Mcbride MD PCP - General Family Medicine 07/09/21 documented as of this encounter
--- OUTSIDE RECORDS SUMMARY | 2024-08-21 14:13 | XMS_ITS | Encounter Summary ---
[place] [address] Care Team Providers Care Geotechnical Engineering Technician Name Role Phone Freeman Herrera MD Primary Care Provider [phone] Reason for Visit * Reason Onset Date Comments Other 03/18/2011 Encounter Details Date Type Department Care Team ([facility] Contact Info) Description 03/18/2011 Telephone [place] [address] Damaris Murphy MD Other Social History Tobacco Use Types Packs/Day [...] encounter Miscellaneous Notes * Telephone Encounter - Dmaaris Murphy MD - 03/18/2011 1:46 PM EDT I called Mrs. Bearden to tell her the orders for Orlando's infliximab have been sent in. I apologized for the delay. She said Orlando is taking her methotrexate and has not had any GI upset. I reminded her that we needed labs towards the end of March. I will mail her an order form to take to the hospital for these to be done. When we receive them, I will reorder her methotrexate for the next 3 months. documented in this encounter Plan of Treatment Not on file documented as of this encounter Visit Diagnoses Not on filedocumented in this encounter Care Teams Geotechnical Engineering Technician Relationship Specialty Start Date End Date Freeman Herrera MD [address] [place] [address] PCP - General 07/22/10 02/07/13 documented as of this encounter
--- OUTSIDE RECORDS SUMMARY | 2024-08-21 14:13 | XMS_ITS | Encounter Summary ---
[place] [address] Care Team Providers Care Fisher Purse Seine Name Role Phone Freeman Herrera MD Primary Care Provider [phone] Reason for Visit * Reason Comments Follow-up idiopathic uveitis o n methotrexate and infliximab Encounter Details Date Type Department Care Team ([facility] st Contact Info) Description 09/23/2011 9:00 AM EST Office Visit [address] [address] [place] [address] Damaris Murphy MD Therapeutic drug monitoring (Primary Dx); Uveitis Discharge Disposition: Home Social [...] Reading Time Taken Comments Blood Pressure 104/76 09/23/2011 9:16 AM EST Pulse - - Temperature 36.8 ??C (98.2 ??F) 09/23/2011 9:16 AM ES T Respiratory Rate - - Oxygen Saturation - - Inhaled Oxygen Concentration - - Weight 58 kg (127 lb 13.9 oz) 09/23/2011 9:16 AM EST Height 168 cm (5' 6.14) 09/23/2011 9:16 AM EST Body Mass Index 20.55 09/23/2011 9:16 AM EST Body Mass Index Percentile 54.28% 09/23/2011 9:1 6 AM EST Growth Chart: CDC (Girls, 2- 20 Years) documented in this encounter Patient Instructions * Patient Instructions* Damaris Murphy MD - 09/23/2011 4:05 PM EST 1. Continue infliximab infusions, methotrexate and folic acid. 2. Labs in 3 months. 3. Please keep me informed of Dr. Golden's recommendations in October. documented in this encounter Progress Notes * Damaris Murphy MD - 09/23/2011 9:50 AM EST Subjective: Patient ID: Orlando Bearden is a 16 y.o. female who comes to clinic with dad today. HPI: Orlando returns to clinic today for follow up of the medical management of her uveitis. We are overseeing the use of her medications, methotrexate and infliximab. Since her last visit in January she has done well. She has taking her medications regularly and without problem. She denies headache, oral ulcers or nausea from the methotrexate. She has had her labs every three months as recommended. She is receiving the infliximab infusions in [facility]. It hs been OK and she would like to continue to get them there. She has had no infections or other systemic illness. Her psoriasis has beenwell controlled with the tacrolimus. She had cataract surgery that went well. There was no discussion of medication changes with Dr. Golden because they wanted to get through the surgery first. Jessicays her eyes have been quiet for some time. They will be seen again by Dr. Golden in October. She was seen by Dr. Phillips in March for back pain thought to be spondylolisthesis, but her MRI did not support that diagnosis. She reports this pain is better. More recently she has had knee and ankle pain. Both are without AM stiffness or swelling and are aggravated by activity. 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 The etiology of her ankle pain is unclear. She is very active in sports. Review of Systems Constitutional: Negative. HENT: Positive for neck pain. Eyes: See HPI. Respiratory: Negative. Cardiovascular: Negative. Gastrointestinal: Negative. Genitourinary: Positive for menstrual problem. Her menses have continued to be irregular. She does not get her period when she runs. She does not drink milk. She drinks orange juice with calcium and eats yogurt. I reviewed the need for her to have 1200 mg of Ca daily. Musculoskeletal: See HPI. Skin: History of psoriasis now well controled. Neurological: Negative. Hematological: Negative. Psychiatric/Behavioral: Negative. Objective: Physical Exam Vitals reviewed. Constitutional: She appears well-developed and well-nourished. No distress. HENT: Mouth/Throat: Oropharynx is clear and moist. Neck: She had FROM without adenopathy, masses or pain at the EOM. There was no thyroid enlargement or nodules. Cardiovascular: Normal rate and regular rhythm. No murmur heard. Pulmonary/Chest: Effort normal and breath sounds normal. No respiratory distress. Abdominal: Soft. She exhibits no mass. No tenderness. There was no organomegaly. Musculoskeletal: She had FROM in all joints without swelling or pain at the EOM. She located her left knee pain at her lateral femoral condyle consistent with ileo tibial band syndrome. There was no induration. Therewas no tenderness today. She had a large bruise over the medial malleolus of her right ankle consistent with an injury, either a sprain or a contusion. Neurological: Cranial nerves II-XII were grossly intact. Cerebellar testing by finger to nose was intact. She had0-1+ DTR. Her plantar repsonse was down going. Skin: Skin is warm and dry. No rash noted. There was no psoriasis today. There were no nail pets. Recent Results (from the past 72 hour(s)) CBC (WITH DIFF) Component Value Range ??? WBC 7.5 4.5 - 13.0 (x10(3)/mcL) ??? RBC 4.29 4.10 - 5.10 (x10(6)/mcL) ??? Hemoglobin 12.9 12.0 - 16.0 (gm/dL) ??? Hematocrit 39.1 36.0 - 46.0 (%) ??? MCV 91.1 76.0 - 98.0 (fL) ??? MCH 30.1 25.0 - 35.0 (pg) ??? MCHC 33.0 32.0 - 36.5 (gm/dL) ??? Platelets 312 145 - 370 (x10(3)/mcL) ??? RDWSD 42.1 35.0 - 46.0 (fL) ??? RDWCV 12.7 10.9 - 14.4 (%) ??? MPV 9.5 9.0 - 12.0 (fL) COMPREHENSIVE METABOLIC PANEL (NON-FASTING) Component Value Range ??? Glucose Lvl 92 60 - 199 (mg/dL) ??? BUN 12 10 - 20 (mg/dL) ??? Creatinine 0.61 0.20 - 0.70 (mg/dL) ??? Sodium 137 135 - 145 (mmol/L) ??? Potassium 4.6 3.5 - 5.0 (mmol/L) ??? Chloride 99 98 - 107 (mmol/L) ??? CO2 28 22 - 31 (mmol/L) ??? Anion Gap 10 5 - 15 (mmol/L) ??? Calcium 10.2 8.5 - 10.5 (mg/dL) ??? Total Protein 7.9 6.4 - 8.3 (gm/dL) ??? Albumin 4.9 3.2 - 5.2 (gm/dL) ??? AST 21 5 - 30 (unit/L) ??? ALT 10 0 - 25 (unit/L) ??? Alk Phos 77 (*) 80 - 250 (unit/L) ? ? Total Bilirubin 0.3 <=1.0 (mg/dL) ??? Bili, Direct 0.1 0.0 - 0.3 (mg/dL) ? ? Estimated GFR See note >=60 DIFFERENTIAL, AUTOMATED Component Value Range ??? Neutrophils % 43.6 37.0 - 77.0 (%) ??? Neutr Abs (ANC) 3.25 1.50 - 8.00 (x10(3)/mcL) ??? Lymphocytes % 44.3 20.0 - 50.0 (%) ??? Lymphocytes Abs 3.3 1.2 - 5.2 (x10(3)/mcL) ??? Monocytes % 9.6 2.0 - 12.0 (%) ??? Monocyte Abs 0.7 0.2 - 1.0 (x10(3)/mcL) ??? Eosinophils % 2.1 0.0 - 7.0 (%) ??? Eosinophils Abs 0.2 0.0 - 0.5 (x10(3)/mcL) ??? Basophils % 0.4 0.0 - 2.0 (%) ??? Basophils Abs 0.0 0.0 - 0.2 (x10(3)/mcL) ??? Immature Gran % 0.00 0.00 - 0.66 (%) ??? Cary Gran Abs 0.00 0.00 - 0.05 (x10(3)/mcL) Assessment: 1. Idiopathic uveitis quiet on her current medications, S/P cataract surgery. 2. Back, knee and ankle pain, most consistent with a mechanical not inflammatory in etiology. 3. Psoriasis well controlled. Plan: 1. Labs as noted above. 2. Continue her current medications. They will ask Dr. Golden whether he might consider tapering ordiscontinuing her current medications in the near future. If not in the near future, then they willdiscuss any choices for other Rx such as adalimumab or MMF. Orlando seems more comfortable with her medications this visit than at her last visit. I have some concern about the infliximab and her psoria sis, although it is well controled. 3. CBC, AST and ALT at home in 3 months. 4. RTC here in 6 months or prn problems. documented in this encounter Plan of Treatment Not on file documented as of this encounter Procedures Procedure Name Priority Date/Time Associated Diagnosis Comments DIFFERENTIAL, AUTOMATED Routine 09/23/2011 10:30 AM EST CBC (WITH DIFF) Routine 09/23/2011 10:30 AM EST Therapeutic drug monitoring COMPREHENSIVE METABOLIC PANEL Routine 09/23/2011 10:30 AM EST Therapeutic drug monitoring documented in this encounter Results * DIFFERENTIAL, AUTOMATED (09/23/2011 10:30 AM EST) Neutrophil % 43.6 37.0 - 77.0 % CERNER MILLENNIUM Neutrophil Absolute 3.25 1.50 - 8.00 x10(3)/mcL CERNER MILLENNIUM Lymph % 44.3 20.0 - 50.0 % CERNER MILLENNIUM Lymphocytes Abs 3.3 1.2 - 5.2 x10(3)/mcL CERNER MILLENNIUM Monocyte % 9.6 2.0 - 12.0 % CERNER MILLENNIUM Monocyte Abs 0.7 0.2 - 1.0 x10(3)/mcL CERNER MILLENNIUM Eos % 2.1 0.0 - 7.0 % CERNER MILLENNIUM Eosinophils [...] 0.05 x10(3)/mcL CERNER MILLENNIUM Blood specimen (specimen) 09/23/2011 10:30 AM EST 09/23/2011 10:39 AM EST Damaris Murphy MD [facility]ATOLOGY [facility]AB LES [facility] * (ABNORMAL) Comprehensive metabolic panel (non-fasting) (09/23/2011 10:30 AM EST) Glucose 92 60 - 199 mg/dL CERNER MILLENNIUM Comment:Diabetes: >=200 mg/d L plus symptoms Blood Urea Nitrogen 12 10 - 20 mg/dL CERNER MILLENNIUM Creatinine 0.61 0.20 - 0.70 mg/dL CERNER MILLENNIUM Sodium 137 135 - 145 mmol/L CERNER MILLENNIUM Potassium 4.6 3.5 - 5.0 mmol/L CERNER MILLENNIUM Comment: [...] - 31 mmol/L CERNER MILLENNIUM Anion Gap 10 5 - 15 mmol/L CERNER MILLENNIUM Calcium 10.2 8.5 - 10.5 mg/dL CERNER MILLENNIUM Protein, Total 7.9 6.4 - 8.3 gm/dL CERNER MILLENNIUM Albumin 4.9 3.2 - 5.2 gm/dL CERNER MILLENNIUM Aspartate Aminotransferase 21 5 - 30 unit/L CERNER MILLENNIUM Alanine Aminotransferase 10 0 - 25 unit/L CERNER MILLENNIUM Alkaline Phosphatase 77(L) 80 - 250 unit/L CERNER MILLENNIUM Bilirubin, Total 0.3 <=1.0 [...] multiply eGFR by 1.2. The MDRD equation has not been validated for pediatric [...] disease. References: http://nkdep.nih.gov/resources/NKDEP_Suggestn4Labs_0606_508.pdf http://www.kidney.org/professionals/kls/pdf/faq_gfr.pdf Blood specimen (specimen) 09/23/2011 10:30 AM EST 09/23/2011 10:39 AM EST Damaris Murphy MD CHEMISTRY ORDERABL ES Performing Organization Address [facility] [[email or web address]] Co de Phone Number SHAHZAD MONSIVAIS * CBC (with Diff) (09/23/2011 10:30 AM EST) White Blood Cell 7.5 4.5 - 13.0 x10(3)/mcL CERNER MILLENNIUM Red Blood Cell 4.29 4.10 - 5.10 x10(6)/mcL CERNER MILLENNIUM Hemoglobin 12.9 12.0 - 16.0 gm/dL CERNER MILLENNIUM Hematocrit 39.1 36.0 - 46.0 % CERNER MILLENNIUM Mean Cell Volume 91.1 76.0 - 98.0 fL CERNER MILLENNIUM Mean Cell Hemoglobin 30.1 25.0 - 35.0 pg CERNER MILLENNIUM Mean Cell Hemoglobin Concentration 33.0 32.0 - 36.5 gm/dL CERNER MILLENNIUM Platelet 312 145 - 370 x10(3)/mcL CERNER MILLENNIUM RDW Standard Deviation 42.1 35.0 - 46.0 fL CERNER MILLENNIUM RDW coefficient of variation 12.7 10.9 - 14.4 % CERNER MILLENNIUM Mean Platelet Volume 9.5 9.0 - 12.0 fL CERNER MILLENNIUM Blood specimen (specimen) 09/23/2011 10:30 AM EST 09/23/2011 10:39 AM EST Damaris Murphy MD HEMATOLOGY ORDERAB LES Performing Organization Address [facility] [[email or web address]] Co de Phone Number SHAHZAD MONSIVAIS documented in this encounter Visit Diagnoses Diagnosis Therapeutic drug monitoring- Primary Encounter for therapeutic drug monitoring Uveitis Unspecified iridocyclitis documented in this encounter Care Teams Fisher Purse Seine Relationship Specialty Start Date End Date Freeman Herrera MD [address] [address] PCP - General 07/22/10 02/07/13 documented as of this encounter
--- OUTSIDE RECORDS SUMMARY | 2024-08-21 14:13 | XMS_ITS | Encounter Summary ---
Author Organization [facility] Address [facility] [place] [address] Care Team Providers Care Clinical Transformation Specialist Name Role Phone Freeman Herrera MD Primary Care Provider [phone] Reason for Visit * Reason Onset Date Comments Prior Authorization 01/21/2011 Remicade Encounter Details Date Type Department Care Team ([facility] st Contact Info) Description 01/21/2011 Telephone [place] [address] Nuvia Patrick MD [facility] DR PEDIATRIC [place] [address] Prior Authorization (Remicade) Social History Tobacco Use Types Packs/Day [...] encounter Miscellaneous Notes * Telephone Encounter - Ana Orantes - 01/21/2011 12:20 PM EDT Patient Name: Orlando Bearden Date of : 1995 Subscriber Insurance: [place] [employer] ID# [id number] Ins. Phone # Physician: Nuvia Patrick Medication requested: Remicade Strength: Frequency: Disp: Is patient currently taking this medication? If yes, previous refill date: Refill: Diagnosis: Medical necessity of this medication: Additional risk factors that make this medication required: Prior medication trials: Dates: Outcomes/Adverse reactions: Drug interactions: Note(s): === From: Ana Orantes To: [facility] - Prior Auth 06/04/2009 09:24 AM Pt. insurance in in [place] would not deny or conrifm coverage but they faxed me a form stating coverage could be provided. I advised pt. of this === From: Ana Orantes To: [facility] - Prior Auth 05/29/2009 02:41 PM for Remicade pt. ins. changed. PA Approval Effective Dates: PA Approved By: PA Authorization number (if given): Created By: Ana Orantes Communication sent to: Chris Doan 07/21/2010 09:49 Electronically signed by: ANA ORANTES 07/21/2010 09:49 documented in this encounter Plan of Treatment Not on file documented as of this encounter Visit Diagnoses Not on filedocumented in this encounter Care Teams Clinical Transformation Specialist Relationship Specialty Start Date End Date Freeman Herrera MD [address] [place] [address] PCP - General 07/22/10 02/07/13 documented as of this encounter
--- OUTSIDE RECORDS SUMMARY | 2024-08-21 14:13 | XMS_ITS | Encounter Summary ---
Author Organization [facility] Address [facility] [place] [address] Care Team Providers Care Tube Teller Name Role Phone Freeman Herrera MD Primary Care Provider [phone] Encounter Details Date Type Department Care Team (Late st Contact Info) Description 09/26/2010 9:00 AM EST Office [place] [phone] CLINIC, Freeman Bass MD [address] [place] [address] Nuvia Patrick MD [facility] [place] [address] Discharge Disposition: Home Social History Tobacco Use [...] on filedocumented in this encounter Care Teams Tube Teller Relationship Specialty Start Date End Date Freeman Herrera MD [address] [facility] [place] [address] PCP - General 07/22/10 02/07/13 documented as of this encounter
--- OUTSIDE RECORDS SUMMARY | 2024-08-21 14:13 | XMS_ITS | Encounter Summary ---
[place] [address] Care Team Providers Care Apparel Trimmings Sales Representative Name Role Phone Freeman Herrera MD Primary Care Provider [phone] Reason for Visit * Reason Onset Date Comments Medication Refill 04/29/2011 Encounter Details Date Type Department Care Team (Late st Contact Info) Description 04/29/2011 Refill [place] [phone] Damaris Murphy MD Uveitis (Primary Dx) Social History Tobacco [...] iridocyclitis documented in this encounter Care Teams Apparel Trimmings Sales Representative Relationship Specialty Start Date End Date Freeman Herrera MD [address] [place] [address] PCP - General 07/22/10 02/07/13 documented as of this encounter
--- OUTSIDE RECORDS SUMMARY | 2024-08-21 14:13 | XMS_ITS | Encounter Summary ---
Author Organization [facility] [place] [address] Care Team Providers Care Mathematical Technician Name Role Phone Freeman Herrera MD Primary Care Provider Encounter Details Date Type Department Care Team (Late st Contact Info) Description 06/09/2010 Orders [place] [phone] Damaris Murphy MD Social History Tobacco Use [...] FILM LIBRARY STORAGE ONLY DX SPINE Routine 06/09/2010 7:52 AM EDT documented in this encounter Results * FILM LIBRARY- STORAGE ONLY DX SPINE (06/09/2010 7:52 AM EDT) 06/09/2010 7:52 AM EDT Narrative RAD - 01/02/2014 7:46 PM EDT This is a non-reportable exam. Procedure Note Matt Angel - 01/02/2014 This is a non-reportable exam. Damaris Murphy MD IMG FILM LIBRARY O RDERABLES [facility] [address] [facility] [place] [address] documented in this encounter Visit Diagnoses Not on filedocumented in this encounter Care Teams Mathematical Technician Relationship Specialty Start Date End Date Freeman Herrera MD [address] [place] [address] PCP - General 07/22/10 02/07/13 documented as of this encounter
[2024-08-21 15:29] LABS: Absolute Basophil Count 0.03 10^3/uL (0.0-0.2); Absolute Eosinophil Count 0.14 10^3/uL (0.0-0.7); Absolute Monocyte Count 0.45 10^3/uL (0.1-0.8); Absolute Neutrophil Count 2.55 10^3/uL (1.2-6.7); Basophils % 0.6 %; Eosinophils % 2.7 %; HCT 43.2 % (36.0-46.0); HGB 13.8 g/dL (11.2-15.7); Lymphocytes % 38.7 %; MCH 29.7 pg (27.0-33.0); MCHC 31.9 % (32.0-36.0); MCV 93 fL (80-95); MPV 9.8 fL (8.0-11.0); Monocytes % 8.7 %; Neutrophils % 49.3 %; Platelet Count 328 10^3/uL (130-400); RBC 4.64 10^6/uL (3.93-5.22); RDW 12.1 % (11.7-14.6); RDW-SD 41.4 fL; WBC 5.17 10^3/uL (4.4-10.8)
[2024-08-21 16:13] LABS: ALT 17 U/L (14-59); AST 19 U/L (15-37); Albumin 4.6 g/dL (3.4-5.0); Alkaline Phosphatase 62 U/L (46-116); Anion Gap 7.6 mmol/L (3-11); BUN 6 mg/dL (7-18); Bilirubin, Total 0.35 mg/dL (0.2-1.0); CO2 29.4 mmol/L (21.0-32.0); CREATININE 0.7 mg/dL (0.55-1.02); Calcium 9.3 mg/dL (8.5-10.1); Chloride 101 mmol/L (98-107); Estimated GFR 120.74 (mL/min/1.73m2); Glucose 91 mg/dL (74-106); Potassium 4.4 mmol/L (3.5-5.1); Sodium 138 mmol/L (136-145); Total Protein 8.3 g/dL (6.4-8.2)
[2024-08-21 16:14] LABS: C-Reactive Protein < 0.50 mg/dL (<or=0.5)
[2024-08-25 09:46] LABS: EBNA IgG Negative (Negative); EBV Interpretation (See Note); VCA IgG Positive (Negative); VCA IgM Negative (Negative)
== END 2024-08-21 13:47 | disposition home or self-care (01) ==
LOC: NCHCN 13:46
PROVIDERS: PCP Nurse Practitioner; Visit Provider Family Medicine
DX: R53.83 Other fatigue (principal)
CPT/HCPCS: 80053; 84443; 85025; 86140; 86664; 86665

== ENCOUNTER 2024-10-25 13:37 | Outpatient (CLI) | payer OTHER, SELFPAY ==
--- NOTE | 2024-10-25 | DI.RAD_ITS ---
Exam(s) XR KNEE RT 3V AP,LAT,VICTOR MANUEL EXAM: XR KNEE RT 3V AP,LAT,VICTOR MANUEL CLINICAL HISTORY: RT KNEE PAIN, M25.561,S/P FALL, BRUISE. TECHNIQUE: 2D digital imaging was performed. Three views. COMPARISON: No exams were available for comparison FINDINGS: BONES: No acute fracture is present. No bony destructive lesion is seen. JOINTS: The knee is normally aligned. No joint effusion is seen. The joint spaces are maintained. SOFT TISSUE: Normal. IMPRESSION: Unremarkable radiographs of the right knee. DATA REPOSITORY: RADIATION DOSE DELIVERED:
== END 2024-10-25 13:57 ==
LOC: DI 13:37
PROVIDERS: PCP Nurse Practitioner; Visit Provider Family Medicine
DX: M25.561 Pain in right knee (principal)
CPT/HCPCS: 73562

== ENCOUNTER 2024-11-23 14:49 | Outpatient (REF) | payer OTHER, SELFPAY ==
--- NOTE | 2024-11-23 08:55 | PAPFT_PTH ---
PATIENT: Orlando Bearden LOC: [facility] U#:[id number] AGE/SX: 29/F ROOM: RE11/23/[address]: Irma Mcbride : 1995 BED: DIS: 11/23/2024 SPEC #: [id number] RECD: 11/23/24 15:48 STATUS: TERRA REScott #: [id number] DULCE MARIA: 11/23/24 08:[address]: Irma Mcbride DEPT: [facility] Cytology RECD BY: Karen Odonnell ENTERED: 11/23/24 15:49 SP TYPE: PAPFT OTHR DR: Sveta Larsen Tissues: 1 - CX/ENDOCX FOR PAP SMEARS Procedures: PAP THIN PREP/[facility] Screening Comments: [id number]
== END 2024-11-23 14:50 | disposition home or self-care (01) ==
LOC: LBN 14:49
PROVIDERS: PCP Nurse Practitioner; Visit Provider Family Medicine
DX: Z12.4 Encounter for screening for malignant neoplasm of cervix (principal); R87.619 Unspecified abnormal cytological findings in specimens from cervix uteri
CPT/HCPCS: 88142

== ENCOUNTER → 2025-08-21 13:50 | Outpatient (CLI) | payer OTHER, SELFPAY ==
--- NOTE | 2025-08-21 14:04 | DI.RAD_ITS ---
Exam(s) XR FOREARM LT EXAM: XR FOREARM LT CLINICAL HISTORY: INJURY LT FOREARM S50.12XA S59.912A TRAUMA, DISTAL ULNAR ASPECT SWELLING ?. TECHNIQUE: 2D digital imaging was performed of the left forearm. Two views were obtained. AP and lateral views were obtained. COMPARISON: No exams were available for comparison FINDINGS: BONES: No acute fracture is present. No bony destructive lesion is seen. Visualized portion of elbow and wrist joints are unremarkable. SOFT TISSUE: Normal. IMPRESSION: Unremarkable radiographs of the left forearm. DATA REPOSITORY: RADIATION DOSE DELIVERED:
== END ==
LOC: DI 13:51
PROVIDERS: PCP Family Medicine; Visit Provider Nurse Practitioner Family
DX: S50.12XA Contusion of left forearm, initial encounter (principal); S59.912A Unspecified injury of left forearm, initial encounter
CPT/HCPCS: 73090